=== PATIENT | male | born 1950 | race Caucasian/White ===

== ENCOUNTER 2018-02-03 17:09 | Emergency (ER) | payer MEDICARE, OTHER, SELFPAY ==
[2018-02-03 17:10] VITALS: BP 120/65; PULSE 87; RESP 16; TEMP 37.2; O2SAT 96; BMI 28.3
--- NOTE | 2018-02-03 18:33 | ED.DCSUM_ITS ---
- ER Visit Summary Date of Service: 02/03/18 Chief Complaint: Abscess left groin History of Present Illness: The patient is a 67 M with an abscess to the left groin over the past 8 days. He states for the past 3 days it has been draining. Today he had some mild body aches and was feeling nauseated. He had subjective fever but did not measure it at home. He is diabetic and states his blood sugars have been good. Physical Examination: Vital signs grossly unremarkable. Patient is sitting upright in bed no acute distress. He is nontoxic appearing. Head neck examination is unremarkable. Heart is regular rate and rhythm without murmur. Lung sounds are clear. Skin examination reveals a 4 cm firm abscess to the left groin line. There is no fluctuance at this time. There is minimal cellulitis. Test Results: [] Emergency Department Course and Treatment: Bedside ultrasound was performed. There is increased inflammation in the soft tissue without a focal fluid collection. Patient be treated with clindamycin (he has allergy to sulfa and penicillin). He will also be given Zofran for nausea. He is to return for worsening symptoms. Treatment Plan: [] Disposition: Discharge Impression: Cutaneous abscess left groin This note was generated with [employer] dictation software. It may contain incorrect words, spelling, and punctuation that were not noted in review of the chart prior to signing ED Disposition - Plan for ED Patient: Chief Complaint: Abscess Referrals: Yahir Vidal MD [Primary Care Provider] -
--- NOTE | 2018-02-03 18:33 | ED.DEP ---
ED Disposition - Plan for ED Patient: Disposition: Home or Assisted Living Chief Complaint: Abscess Instructions: ED Staph Infec Abx Tx Only Prescriptions: Ondansetron [Zofran Odt] 4 mg PO Q8H PRN PRN #10 tab PRN Reason: Nausea Clindamycin [Cleocin] 300 mg PO 4X/DAY #80 cap Referrals: Yahir Vidal MD [Primary Care Provider] - 5-7 Days
[2018-02-03] MEDS: Ondansetron ODT 4 MG Tablet PO (18:54)
[2018-02-03] MEDS: Clindamycin HCl 150 MG Capsule 300 MG PO (18:54)
[2018-02-03 18:56] VITALS: BP 150/79; PULSE 68; RESP 18; O2SAT 99
== END 2018-02-03 18:59 | disposition home or self-care (01) ==
LOC: ED 18:47
PROVIDERS: Emergency Provider Emergency Medicine; Family Provider Internal Medicine; PCP Internal Medicine
DX: L02.214 Cutaneous abscess of groin (principal); Z88.2 Allergy status to sulfonamides; E11.9 Type 2 diabetes mellitus without complications; I10 Essential (primary) hypertension; E78.00 Pure hypercholesterolemia, unspecified; I25.10 Atherosclerotic heart disease of native coronary artery without angina pectoris; I25.2 Old myocardial infarction; Z72.0 Tobacco use; Z95.810 Presence of automatic (implantable) cardiac defibrillator
CPT/HCPCS: 99283

== ENCOUNTER → 2018-03-24 11:48 | Outpatient (CLI) | payer MEDICARE, OTHER, SELFPAY ==
[2018-03-24 12:58] LABS: AST(SGOT) 14 U/L (15-37); Alanine Aminotransfer ALT/SGPT 32 U/L (16-61); Albumin, Serum 3.9 g/dL (3.2-5.0); Alkaline Phosphatase 63 U/L (45-117); Bilirubin, Direct 0.12 mg/dL (0.00-0.30); Cholesterol 151 mg/dL (200); Globulin 3.4 g/dL (2.2-4.2); High Density Lipoprotein 25 mg/dL; Protein, Total 7.3 g/dL (6.4-8.2); Triglycerides 262 mg/dL; Very Low Density Lipoprotein 52 mg/dL (5-40)
== END ==
PROVIDERS: Family Provider Internal Medicine; PCP Internal Medicine; Referring Provider Nurse Practitioner Family; Visit Provider Nurse Practitioner Family
DX: E78.00 Pure hypercholesterolemia, unspecified (principal); I25.10 Atherosclerotic heart disease of native coronary artery without angina pectoris; Z98.61 Coronary angioplasty status
CPT/HCPCS: 36415; 80061; 80076

== ENCOUNTER → 2018-11-20 09:57 | Outpatient (CLI) | payer MEDICARE, OTHER, SELFPAY ==
[2018-09-01 13:30] VITALS: BMI 28.8
[2018-11-20 11:14] LABS: AST(SGOT) 10 U/L (15-37); Alanine Aminotransfer ALT/SGPT 19 U/L (16-61); Albumin, Serum 3.8 g/dL (3.2-5.0); Alkaline Phosphatase 49 U/L (45-117); Bilirubin, Direct 0.09 mg/dL (0.00-0.30); Cholesterol 128 mg/dL (200); Globulin 3.1 g/dL (2.2-4.2); High Density Lipoprotein 28 mg/dL; Protein, Total 6.9 g/dL (6.4-8.2); Triglycerides 199 mg/dL; Very Low Density Lipoprotein 40 mg/dL (5-40)
== END ==
PROVIDERS: Family Provider Internal Medicine; PCP Internal Medicine; Referring Provider Nurse Practitioner Family; Visit Provider Nurse Practitioner Family
DX: E78.5 Hyperlipidemia, unspecified (principal)
CPT/HCPCS: 36415; 80061; 80076

== ENCOUNTER → 2019-04-21 06:43 | Outpatient (CLI) | payer MEDICARE, OTHER, SELFPAY ==
[2019-03-30 14:27] VITALS: BMI 28.2
--- NOTE | 2019-04-21 06:44 | ECHOD_ITS ---
Reason For Study: CAD Procedure This was a 2D Doppler, Color Flow transthoracic echocardiogram. Exam performed in department. Left Ventricle Severely dilated left ventricle. Moderate segmental systolic dysfunction (see wall motion). The estimated ejection fraction is 35 %. Paradoxical septal wall motion compatible with an IVCD and/or electronic ventricular pacemaker. No evidence for diastolic dysfunction. Anterio-Basal: Hypokinetic. Lateral-Basal: Hypokinetic. Posterior-Basal: Severely hypokinetic. Infero-Basal: Severely Hypokinetic. Basal inferoseptal: Severely Hypokinetic. Basal anteroseptal: Hypokinetic. Mid- Anterior : Hypokinetic. Mid-Lateral : Severely Hypokinetic. Mid-Posterior: Severely Hypokinetic. Mid-Inferior: Akinetic. Mid-inferoseptal : Severly Hypokinetic. Mid-anteroseptal : Hypokinetic. Anterior [place] : Hypokinetic. Inferior [place] Lee : Akinetic. Lateral [place] : Severely Hypokinetic. Septal [place] : Hypokinetic. Right Ventricle Normal RV size. ICD or pacer leads identified within the right ventricle. Normal systolic function. Atria The left atrium is mildly enlarged. Normal right atrium. ICD or pacer leads identified within the right atrium. No doppler evidence for ASD. Mitral Valve There is no mitral annular calcification. Normal mitral valve. Mild-Moderate (1-2+) mitral valve insufficiency. Tricuspid Valve Normal tricuspid valve. Mild tricuspid valve insufficiency. Right ventricular systolic pressure estimated to be 28 mmHg. Aortic Valve Trisinus/trileaflet aortic valve. Normal aortic valve. Pulmonic Valve The pulmonic valve is not well visualized. Trivial pulmonic valve insufficiency. Great Vessels Normal sized aortic root. Pericardium/Pleural No pericardial effusion. MMode/2D Measurements & Calculations LVIDd: 6.8 cm IVSd: 1.2 cm Ao root diam: 3.6 cm LVIDs: 5.6 cm LVPWd: 1.2 cm RVDd: 3.4 cm FS: 17.1 % LAV(MOD-bp): 71.9 ml EDV(MOD-sp4): 253.3 ml SV(MOD-sp4): 89.0 ml LAV(MOD-bp) Indexed: 33.2 ml/m2 ESV(MOD-sp4): 164.3 ml LAV(MOD-sp2): 68.2 ml EF(MOD-sp4): 35.1 % LAV(MOD-sp4): 74.2 ml LA dimension(2D): 4.2 cm LA A4 area: 22.2 cm2 RA A4 area: 19.2 cm2 Doppler Measurements & Calculations MV E max tom: 52.2 cm/sec Lat Peak E' Tom: 5.9 cm/sec Med Peak E' Tom: 4.6 cm/sec MV A max tom: 96.9 cm/sec E/E' lat: 8.9 E/E' med: 11.4 MV E/A: 0.54 Ao V2 max: 161.4 cm/sec LV V1 max: 98.2 cm/sec PA V2 max: 99.1 cm/sec Ao max P.4 mmHg LV V1 max P.9 mmHg TR max tom: 251.7 cm/sec TR max P.3 mmHg Interpretation Summary Severely dilated left ventricle. Moderate segmental systolic dysfunction (see wall motion). The estimated ejection fraction is 35 %. Paradoxical septal wall motion compatible with an IVCD and/or electronic ventricular pacemaker The left atrium is mildly enlarged. Mild-Moderate (1-2+) mitral valve insufficiency. Mild tricuspid valve insufficiency. Trivial pulmonic valve insufficiency. Right ventricular systolic pressure estimated to be 28 mmHg. No evidence for diastolic dysfunction. ICD or pacer leads identified within the right atrium ICD or pacer leads identified within the right ventricle. Ordering Physician: Pratik Yoder Referring Physician: Yahir Vidal Performed By: Madalyn Parisi RDCS
--- NOTE | 2019-04-21 13:20 | STRESSREP ---
Stress Test Report Date: 04-21-19 Procedure: Pharmacologic stress nuclear imaging study Indications: Fatigue; CAD; PCI; ischemic cardiomyopathy; ICD; abnormal ECG-left bundle branch block Consent: Per the patient Procedure: The patient underwent pharmacologic (Regadenoson) evaluation with a peak heart rate of 82 beats per minute (53 %predicted maximal heart rate) and a peak blood pressure of 130/80 mmHg. The baseline ECG demonstrated sinus rhythm; incomplete left bundle branch block pattern. The peak pharmacologic ECG demonstrated sinus rhythm with left bundle branch block pattern. There was an occasional PVC during recovery and an isolated ventricular triplet during recovery. [There was no complaint of chest discomfort during pharmacologic infusion or recovery]. The examination was discontinued secondary to completion of protocol. Impression: 1. Pharmacologic (Regadenoson) evaluation 2. Peak pharmacologic ECG with continued left IVCD pattern. 3. There was an occasional PVC during recovery and an isolated ventricular triplet during recovery. 4. Nuclear images pending Myocardial perfusion imaging study: Technique: The patient was injected with 14.0 millicuries of technetium 99m Cardiolite and subsequently rest SPECT Cardiolite nuclear imaging was obtained in the horizontal long, vertical long, and short axis views. The patient underwent pharmacologic (Regadenoson) evaluation with a peak heart rate of 82 beats per minute (53 % percent predicted maximal heart rate) and a peak blood pressure of 130/80 mmHg. The patient was injected with 44.3 millicuries of technetium 99m Cardiolite and subsequently stress SPECT Cardiolite nuclear imaging was obtained in the horizontal long, vertical long, and short axis views. A gated Cardiolite study at peak stress was obtained. Interpretation: Rest and stress SPECT Cardiolite nuclear imaging status post realignment, normalization, and attenuation correction demonstrate rest and stress SPECT Cardiolite nuclear imaging demonstrate at rest areas of diminished tracer uptake in portions of the distal anteroseptal/septal apical areas. Status post stress there is notation of improvement in these areas, however, there is notation of an area of diminished tracer uptake in portions of the mid towards distal anterior/anteroseptal segments as well as the associated anterior/septal apical segments. There are similar type findings on the resting and stress polar map images. There is diminished end systolic thickening and brightening. The gated Cardiolite study demonstrates diminished myocardial thickening and inward wall motion. The reported LVEF is 32 %. Impression: 1. Rest and stress SPECT currently nuclear imaging demonstrate myocardial perfusion changes potentially compatible with a combination of shifting soft tissue attenuation/artifact be more prominent at rest as opposed to stress but also concerning for an area of stress-induced myocardial ischemia involving portions of the mid to distal anterior/anteroseptal and associated apical segments. 2. The gated Cardiolite study reports an LVEF of 32 %. This note was generated with [employer] software. It may contain incorrect words, spelling, and punctuation that were not noted in checking the note before signing.
== END ==
PROVIDERS: Family Provider Internal Medicine; PCP Internal Medicine; Referring Provider Internal Medicine Cardiovascular Disease; Visit Provider Internal Medicine Cardiovascular Disease
DX: I25.10 Atherosclerotic heart disease of native coronary artery without angina pectoris (principal); I43 Cardiomyopathy in diseases classified elsewhere; E78.00 Pure hypercholesterolemia, unspecified; I10 Essential (primary) hypertension; Z95.5 Presence of coronary angioplasty implant and graft; R53.83 Other fatigue
CPT/HCPCS: 78452; 93017; 93306; A9500; A4216; J2785

== ENCOUNTER → 2019-05-13 11:39 | Outpatient (CLI) | payer MEDICARE, OTHER, SELFPAY ==
[2019-05-13 10:44] VITALS: BMI 28.5
--- NOTE | 2019-05-13 11:50 | RAD_ITS ---
STUDY: X-RAY CHEST REASON FOR EXAM: Male, 68 years old. Pre-op for heart catheter. Chest tightness. TECHNIQUE: PA and lateral views. COMPARISON: 09/10/2014. FINDINGS: Right subclavian approach single chamber pacing lead tip remains in the right ventricle. The lungs are clear and expanded. There is no demonstrated pleural abnormality. Normal size heart. Normal mediastinum and azra. Normal visualized pulmonary arteries. Normal visualized aortic arch and descending thoracic aorta. Mild anterior wedging of T8, T9, T10, T11 and T12 vertebral bodies are unchanged. Normal visualized ribs, clavicles, and shoulders. There is no demonstrated abnormality of the visualized soft tissue structures of the upper abdomen. RAD/Chest PA and Lateral IMPRESSION: 1. No acute cardiopulmonary pathology. 2. No interval change when compared to 09/10/2014. Electronically Signed: Vladislav Zavala MD at 10:40 EST , Service support ,
[2019-05-13 12:56] LABS: Absolute Neutrophil Count 4.7 X10^3/uL (2.0-7.7); Basophil# 0.06 X10^3/uL; Basophil% 0.7 % (0-1); Eosinophil# 0.28 X10^3/uL; Eosinophils% 3.3 % (0-5); Hemoglobin 14.1 g/dL (13.0-16.5); Lymphocyte % 26.3 % (19-41); Mean Corp Hgb Conc 33.6 g/dL (32-36); Mean Corpuscular Hgb 30.7 pg (27.0-32.0); Mean Corpuscular Volume 91.3 fL (80-94); Mean Platelet Vol. 9.6 fl (6.2-12.0); Monocyte# 0.98 X10^3/uL; Monocyte% 11.7 % (0-10); NRBC Flagged by Analyzer 0 % (0-5); Neutrophil # 4.72 X10^3/uL (2.7-7.7); Neutrophil % 56.6 % (47-70); Platelet Count 264 K/mm3 (150-450); RBC Distribution Width CV 12.8 % (11.6-14.6); RBC Distribution Width SD 42.4 fl (35.1-43.9); White Blood Count 8.4 K/mm3 (4.4-11.0)
[2019-05-13 13:06] LABS: Prothrombin Time (Protime)PT. 13.4 SECONDS (11.7-14.9)
[2019-05-13 13:07] LABS: Partial Thromboplast Time 30.1 Seconds (24.1-36.2)
[2019-05-13 13:14] LABS: Anion Gap 5 (5-15); BUN 23 mg/dL (7-18); BUN/Creat Ratio 16.2 RATIO (10-20); Calcium,Total 8.6 mg/dL (8.5-10.1); Chloride 107 mmol/L (98-107); Creatinine, Serum 1.42 mg/dL (0.70-1.30); EST Glomerular Filtration Rate 53 mL/min (>60); Est Glom Filt Rate - Afr Amer 64 mL/min (>60); Glucose 114 mg/dL (74-106); Potassium 4.4 mmol/L (3.5-5.1); Sodium Level 138 mmol/L (136-145)
== END ==
PROVIDERS: Family Provider Internal Medicine; PCP Internal Medicine; Referring Provider Internal Medicine Cardiovascular Disease; Visit Provider Internal Medicine Cardiovascular Disease
DX: R07.89 Other chest pain (principal); R94.39 Abnormal result of other cardiovascular function study; I10 Essential (primary) hypertension; I25.10 Atherosclerotic heart disease of native coronary artery without angina pectoris; Z95.5 Presence of coronary angioplasty implant and graft; Z79.899 Other long term (current) drug therapy
CPT/HCPCS: 36415; 71046; 80048; 85025; 85610; 85730

== ENCOUNTER 2019-05-22 08:45 | Day surgery (SDC) | payer MEDICARE, OTHER, SELFPAY ==
[2019-03-30 14:27] VITALS: BMI 28.2
[2019-05-13 10:44] VITALS: BMI 28.5
--- NOTE | 2019-05-13 11:22 | HP_ITS ---
HPI HPI History of Present Illness Surgical H&P: Yes Details: LAUREL DARLING, is a 68 year old white male who presents to the office today for a cardiovascular outpatient follow-up with history of coronary artery disease with multiple stents, ischemic mediated cardiomyopathy, hypertension, hyperlipidemia, status post ICD, and left bundle branch block, who is recently undergone evaluation noninvasively and has been found to have an abnormal pharmacologic stress nuclear imaging study. He notes that since his stress test he did have one day where he had centralized chest tightness. He did use nitroglycerin sublingual. He states he felt better overall. He was not sure whether this was cardiac, GI, etc. He has had no recurrent symptoms since that time. He has had no ongoing issues of classic CHF or pulmonary edema from an acute standpoint. There is been no near syncope or syncope or ICD discharge. He does note that he has been under a lot of stress. He states he has been more tired and fatigued. He did have a follow-up ECG in the office today. He was noted to have sinus rhythm with an occasional PVC as well as T wave abnormalities potentially compatible with myocardial ischemia in the anterior lateral distribution. 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 Accompanied by: Self Allergies FRANK Inhibitors Allergy (Verified 05/13/19 10:44) cough atorvastatin [From Lipitor] Allergy (Verified 05/13/19 10:44) myalgia gabapentin [From Neurontin] Allergy (Verified 05/13/19 10:44) numbness Penicillins Allergy (Verified 05/13/19 10:44) Hives Sulfa (Sulfonamide Antibiotics) Allergy (Verified 05/13/19 10:44) Hives Medications Aspirin [Aspirin, Baby] 81 mg PO DAILY@0800 09/10/14 [History Confirmed 05/13/19] losartan 25 mg tablet 25 mg PO DAILY #90 tab 12/12/18 [Rx Confirmed 05/13/19] lovastatin 20 mg tablet 20 mg PO QHS #90 tab 07/07/18 [Rx Confirmed 05/13/19] clopidogrel 75 mg tablet 75 mg PO DAILY #90 tab 08/21/18 [Rx Confirmed 05/13/19] melatonin 3 mg tablet 3 mg PO HS PRN 09/01/18 [History Confirmed 05/13/19] metformin 500 mg tablet 500 mg PO BID tab 09/01/18 [History Confirmed 05/13/19] nitroglycerin 0.4 mg sublingual tablet 0.4 mg SUBLINGUAL Q5M PRN #25 tab 09/01/18 [Rx Confirmed 05/13/19] amlodipine 10 mg tablet 10 mg PO DAILY #90 tab 09/22/18 [Rx Confirmed 05/13/19] carvedilol 6.25 mg tablet 6.25 mg PO BID #180 tab 10/15/18 [Rx Confirmed 05/13/19] isosorbide mononitrate ER 30 mg tablet,extended release 24 hr 30 mg PO QDAY 90 Days #90 tab 10/15/18 [Rx Confirmed 05/13/19] spironolactone 25 mg tablet 25 mg PO DAILY #90 tab 11/04/18 [Rx Confirmed 05/13/19] [facility] Medical History Type 2 diabetes mellitus (Chronic) Presence of stent in coronary artery (Chronic ~06/22/11) Old myocardial infarction (Acute) Pure hypercholesterolemia (Chronic) Essential (primary) hypertension (Chronic) Other intermediate accountant (current) drug therapy (Chronic) Automatic implantable cardiac defibrillator in situ (Chronic) Cardiomyopathy in other diseases classified elsewhere (Chronic) Abnormal echocardiogram (Inactive) Abnormal myocardial perfusion study (Inactive) Blurred vision (Chronic) Chest tightness (Inactive) Ventricular tachycardia (Chronic) Atherosclerotic heart disease of [place] coronary artery without angina pectoris (Chronic) Acute VT, subendocardial, subsequent episode of care (Inactive) Surgical History History of herniorrhaphy (Chronic) Presence of coronary angioplasty implant and graft (Chronic ~06/22/11) Family History Father Myocardial infarction, Onset Age: 70 CAD (coronary artery disease) Hx of CABG Mother CAD (coronary artery disease) Diabetes Pacemaker Brother Myocardial infarction age of onset 40s Sister Myocardial infarction, Onset Age: 62 Rheumatic fever Son Hypertension Diabetes Daughter Diabetes Social History (Updated 05/13/19 @ 11:22 by Pratik Yoder MD) Smoking Status: Heavy Smoker (>10/day) second hand exposure: No alcohol intake: current alcohol intake frequency: a few times a week substance use type: does not use caffeine: Yes Type: coffee Number of servings: 2 what type of physical activity do you participate in: none ROS Const Const: Positive for fatigue; negative for weakness, frequent falls, excessive sweating, weight gain or weight loss Eyes Eyes: Negative for transient loss of vision, blurry vision or change in vision ENT ENT: Positive for dizziness (coughing jags) and balance problems (slight) Cardio Chest Pain: Yes Character: dull Onset: exercise Location: mid sternal Duration: minutes (10-15) Relieving: other (nitro) Palpitations: No Edema: None Muscle aches with walking: None Resp Respiratory: Positive for SOB with activity (slight) and Cough (dry); negative for SOB at rest GI GI: Negative vomiting or vomiting blood/hematemesis : Negative for hematuria Musc Musc: Positive for balance problems (slight); negative for muscle aches/ myalgia, muscle weakness or joint pain Skin Skin: Negative non-healing lesions or rash Neuro Neuro: Positive for dizziness (coughing jags) and lightheadedness (coughing jags); negative for orthostatic symptoms, frequent falls, weakness or blurry vision Preet Hematologic/Lymphatic: Negative for easy bleeding Endo Endo: Positive for fatigue; negative for excessive sweating Psych Psych: Negative for anxiety or depression Allergy Allergy/Immunology: Negative for hives, Negative for rash Cardiology Exam Const Appearance: cooperative, healthy appearing, comfortable, no acute distress, well developed and well groomed Nutritional Appearance: well nourished and overweight Orientation: alert, awake and oriented x3 Head Head: normal to inspection, normocephalic and atraumatic Ears: hearing grossly normal bilaterally Nose: external nose normal Face and Sinus: face symmetric Mouth: oral mucosae normal Eyes Eyelids: eyelids normal Conjunctivae: conjunctivae normal Pupils: PERRL EOM: EOM intact bilaterally Neck Neck: normal visual inspection, full ROM and no JVD Carotids: normal carotid upstroke Chest Chest inspection: normal inspection of the chest, symmetric chest movement and normal respiratory effort; negative cough Auscultation: Bilateral: Clear to Auscultation Cardio Rate: regular rate Rhythm: regular rhythm Heart sounds: S1 normal and S2 normal; negative rub, gallop or murmur GI GI: normal to inspection, soft and bowel sounds present Neuro General: alert, awake, oriented x3 and moves all extremities Skin Skin: no rashes or lesions noted Extremities Pulses: Normal: Right Posterior Tibial Pulse, Left Posterior Tibial Pulse, Right Radial Pulse, Left Radial Pulse Lower Extremity Edema: None: Bilateral Psych Psychological: normal affect Assessment & Plan 1. Atherosclerosis of [place] coronary artery of [place] heart without angina pectoris I25.10 Plan At the present time he will continue his risk factor modification and medical therapy. He will continue his ongoing cardiovascular evaluation with plans for upcoming diagnostic cardiac catheterization. The procedure and risks were discussed with him. He was agreeable to this approach. 2. Presence of stent in coronary artery Z95.5 PTCA/YUDY to LCX and PTCA/YUDY to mid and distal RCA 06/22/11 Plan Again based on his ongoing cardiovascular history, his concerns, studies, he will continue medical management and further evaluation as noted above. 3. Cardiomyopathy in other diseases classified elsewhere I43 Plan His left ventricular wall motion and systolic function was recently evaluated noninvasively. He continues to be diminished. He will continue medical therapy and follow-up. 4. Automatic implantable cardiac defibrillator in situ Z95.810 Plan He will continue with outpatient ICD interrogation. 5. Pure hypercholesterolemia E78.00 Plan He will continue risk factor evaluation and care. 6. Essential (primary) hypertension I10 Plan He will continue medical therapy. 7. Abnormal myocardial perfusion study R94.39 Plan Again he had an abnormal pharmacologic perfusion imaging study. Based upon the results he will undergo further evaluation with diagnostic cardiac catheterization as previously described. Plan Detail Other Orders Orders: 12 Lead EKG performed by [facility] Today R07.89 12 Lead EKG performed by [facility] Today R07.89 Basic Metabolic Profile (BMP) Today R07.89 Partial Thromboplast Time Today R07.89 Prothrombin Time w/INR Today R07.89 CBC W/Diff, Automated Today R07.89 Chest PA and Lateral Today R07.89 Additional Comments Thank you for allowing me to participate in the care of your patient. Please don't hesitate to call if any issues arise. This note was generated using a voice recognition system and there may be incorrect words, spelling or punctuation that were not noted when reviewing the office note prior to saving. Follow Up 6 Months (PFM) Coding Level of Care Code Off vis,est,level 4 Diagnoses Atherosclerosis of [place] coronary artery of [place] heart without angina pectoris I25.10 ??[place] vs. transplanted heart: [place] heart Presence of stent in coronary artery Z95.5 Cardiomyopathy in other diseases classified elsewhere I43 Automatic implantable cardiac defibrillator in situ Z95.810 Pure hypercholesterolemia E78.00 Essential (primary) hypertension I10 Abnormal myocardial perfusion study R94.39 Coding Level of Care Code Off vis,est,level 4 Diagnoses Atherosclerosis of [place] coronary artery of [place] heart without angina pectoris I25.10 ??[place] vs. transplanted heart: [place] heart Presence of stent in coronary artery Z95.5 Cardiomyopathy in other diseases classified elsewhere I43 Automatic implantable cardiac defibrillator in situ Z95.810 Pure hypercholesterolemia E78.00 Essential (primary) hypertension I10 Abnormal myocardial perfusion study R94.39 Supplemental Info Supplemental Information Heart catheterization in November 2012 demonstrated an ejection fraction of 35-45% moderate global left ventricular hypokinesis. Left main with no obstructive lesions. LAD had luminal irregularities with mid LAD and luminal irregularities in the proximal second diagonal and luminal irregularities distal left anterior. Circumflex had pre-existing stent that was patent with 40% discrete stenosis of the proximal left circumflex. RCA had patent distal stent. Echocardiogram in 2012 demonstrated an ejection fraction of 30%, moderately dilated left ventricle, paradoxical septal wall motion compatible with an IVCD, trivial mitral valve insufficiency, trivial tricuspid valve insufficiency, trivial pulmonic valve insufficiency, and diastolic dysfunction. Transthoracic echocardiogram: 04-21-19 Interpretation Summary Severely dilated left ventricle. Moderate segmental systolic dysfunction (see wall motion). The estimated ejection fraction is 35 %. Paradoxical septal wall motion compatible with an IVCD and/or electronic ventricular pacemaker The left atrium is mildly enlarged. Mild-Moderate (1-2+) mitral valve insufficiency. Mild tricuspid valve insufficiency. Trivial pulmonic valve insufficiency. Right ventricular systolic pressure estimated to be 28 mmHg. No evidence for diastolic dysfunction. ICD or pacer leads identified within the right atrium ICD or pacer leads identified within the right ventricle. Stress Test Report Date: 04-21-19 Procedure: Pharmacologic stress nuclear imaging study Indications: Fatigue; CAD; PCI; ischemic cardiomyopathy; ICD; abnormal ECG-left bundle branch block Consent: Per the patient Procedure: The patient underwent pharmacologic (Regadenoson) evaluation with a peak heart rate of 82 beats per minute (53 %predicted maximal heart rate) and a peak blood pressure of 130/80 mmHg. The baseline ECG demonstrated sinus rhythm; incomplete left bundle branch block pattern. The peak pharmacologic ECG demonstrated sinus rhythm with left bundle branch block pattern. There was an occasional PVC during recovery and an isolated ventricular triplet during recovery. [There was no complaint of chest discomfort during pharmacologic infusion or recovery]. The examination was discontinued secondary to completion of protocol. Impression: 1. Pharmacologic (Regadenoson) evaluation 2. Peak pharmacologic ECG with continued left IVCD pattern. 3. There was an occasional PVC during recovery and an isolated ventricular triplet during recovery. 4. Nuclear images pending Myocardial perfusion imaging study: Technique: The patient was injected with 14.0 millicuries of technetium 99m Cardiolite and subsequently rest SPECT Cardiolite nuclear imaging was obtained in the horizontal long, vertical long, and short axis views. The patient underwent pharmacologic (Regadenoson) evaluation with a peak heart rate of 82 beats per minute (53 % percent predicted maximal heart rate) and a peak blood pressure of 130/80 mmHg. The patient was injected with 44.3 millicuries of technetium 99m Cardiolite and subsequently stress SPECT Cardiolite nuclear imaging was obtained in the horizontal long, vertical long, and short axis views. A gated Cardiolite study at peak stress was obtained. Interpretation: Rest and stress SPECT Cardiolite nuclear imaging status post realignment, normalization, and attenuation correction demonstrate rest and stress SPECT Cardiolite nuclear imaging demonstrate at rest areas of diminished tracer uptake in portions of the distal anteroseptal/septal apical areas. Status post stress there is notation of improvement in these areas, however, there is notation of an area of diminished tracer uptake in portions of the mid towards distal anterior/anteroseptal segments as well as the associated anterior/septal apical segments. There are similar type findings on the resting and stress polar map images. There is diminished end systolic thickening and brightening. The gated Cardiolite study demonstrates diminished myocardial thickening and inward wall motion. The reported LVEF is 32 %. Impression: 1. Rest and stress SPECT currently nuclear imaging demonstrate myocardial perfusion changes potentially compatible with a combination of shifting soft tissue attenuation/artifact be more prominent at rest as opposed to stress but also concerning for an area of stress-induced myocardial ischemia involving portions of the mid to distal anterior/anteroseptal and associated apical segments. 2. The gated Cardiolite study reports an LVEF of 32 %. 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 Labs LDL Cholesterol 60 mg/dL (0-130) 11/20/18 HDL Cholesterol 28 mg/dL (40-) L 11/20/18 Triglycerides 199 mg/dL (-199) 11/20/18 VLDL Cholesterol 40 mg/dL (5-40) 11/20/18 Diagnostics Echocardiogram 04/21/19 Stress Test 04/21/19 Pacemaker Check 01/23/19 Chest X-Ray 09/10/14 05/13/19 1122 <Electronically signed by Pratik vasquez MD> Date _ Pratik Yoder MD I have re-examined the patient. There are no clinical changes since date of exam.
[2019-05-20 13:57] VITALS: BMI 28.5
[2019-05-22] VITALS (16 sets, daily range): BP systolic 106–142; BP diastolic 54–104; PULSE 60–74; RESP 10–22; TEMP 36.6–36.9; O2SAT 96–99; BMI 27.9; BMI 28.5
--- NOTE | 2019-05-22 11:22 | CL.I_ITS ---
Patient Name: LAUREL DARLING Study Date: 05/22/2019 Performing: Usman Ga MD Ht: 72.04 inches 183 cm : 1950 Wt: 209.44 lbs 95 kg Age: 68 Gender: male BSA: 2.17 PROCEDURE(S) PERFORMED LO76-BDB W OR WO PTCA, SINGLE CORONARY ARTERY CLINICAL PROFILE AND CO-MORBIDITIES Heart Failure: NYHA Class: 1, Newly Diagnosed: No, Heart Failure Type: Systolic Stress/Imaging Date: 05/13/2019 Stress Test with SPECT MPI: Positive Low Risk Angina Classification Anginal Classification w/in 2 Weeks: CCS II CAD Presentations: Unstable angina. Comorbidities/Risk Factors: Hypertension Dyslipidemia Prior CHF Prior PCI Diabetes Mellitus: Diabetes Therapy: Oral CONCLUSIONS Successful PTCA/YUDY to proximal/mid PL branch of RCA with a 3.0 x 38 Promus Synergy, post dilated pro ximally with a 3.5 x 8 NC Balloon; 75%-->0%, no dissection. RECOMMENDATIONS Highly recommend quitting all tobacco products Follow up with primary product safety expert Risk factor modification ASA Indefinitley Plavix for at least 12 months Routine post interventional care Refer for Outpatient Cardiac Rehab Manual sheath removal per protocol Follow up with Dr. Yoder Successful Mynx Control of RFA. Medical management of LAD and LCX for now. Pt had identical CP during stent deployment. DESCRIPTION OF PROCEDURE The patient arrived to the procedure lab. The risks and benefits of the procedure as well as a full d escription of our services here and current unavailability of surgical backup were fully explained to the patient and/or their significant other prior to the catheterization. The Timeout was completed, verifying the correct patient and procedure. The patient's procedural site was prepped and draped in the usual fashion. Local anesthetic was given subcutaneously to right groin region with Lidocaine 2% Using a modified Seldinger technique,arterial access was obtained via the right femoral artery, a 4Fr sheath was inserted Left Coronary Artery selective angiography was performed in multiple views using a 4 Fr. JL5 catheter. Right Coronary Artery selective angiography was then performed in multiple vie ws using a 4 Fr. 3DRC catheter. Left Ventriculography was performed in MARCIAL projection using a 4 Fr. P igtail catheter. LV to AO pullback pressures were then recorded.The images were reviewed and options discussed. A decision was then made to proceed with an Intervention, IVUS or other adjunc t procedure. Arterial sheath was exchanged for a 6 Fr Sheath. AL 1 Guide catheter was inserted and engaged int o the RCA. BMW Guide wire was advanced to the RCA. 2x12 Emerge Balloon catheter was inserted. Balloon catheter was advanced across lesion in the right coronary, distal. RPL PTCA balloon inflated at 10 a tms for 10 secs. PTCA balloon inflated at 10 atms for 6 secs. PTCA balloon inflated at 12 atms for 10 secs. 3x38 Synergy Drug Eluting stent was inserted. Drug Eluting stent was advanced across the lesio n in the right coronary, distal. RPL 3.5x8 NC Emerge Balloon catheter was inserted. Angiogram perform ed post stent deployment. Angiogram performed post balloon dilatation. Contrast was injected through the sheath and the Right Iliac and Femoral artery were assessed for possible closure device. The art erial sheath was pulled and a Mynx closure device was deployed for hemostasis INTERVENTION INFORMATION LESION SITE: RPL (1st) Lesion Complexity: High/C, lesion at bifurcation: No, thrombus present: No, lesion length: 38 mm, cul prit lesion: Yes Pre Stenosis: 75 % Pre intervention VERA flow: 3 PROCEDURE: Drug Eluting Stent with pre and post dilatation Post Stenosis: 0 % Post intervention VERA flow: 3 Lesion Devices: Sellers .014 BMW [place] Straight 190cm Medtronic 6 Fr AL1.0 100cm Guide Catheter Demertio Sci EMERGE MR 2.00x12 BALLOON Demetrio Sci Synergy MR YUDY 3.00x38 Demetrio Sci NC EMERGE MR 3.50x08 BALLOON COMPLICATIONS No Complications PROCEDURE MEDICATIONS Versed 1 mg IV Versed 1 mg IV Oxygen: 2 L/min via nasal cannula Heparin 6000 unit(s) IV 05/22/2019 10:47:41 Nitro 200 mcg IC 05/22/2019 10:54:38 Nitro 200 mcg IC 05/22/2019 10:54:38 SUMMARY OF HEMODYNAMIC DATA Time AIR REST ECG 09:16:51 AO 101/62 (77) SA 10:26:10 LV 97/-2, 6 10:37:38 LV 90/-1, 4 10:37:45 LV 109/2, 11 10:38:38 LVp 110/-2, 15 10:38:43 AOp 107/52 (72) 10:38:48 Signed By Usman Ga MD On 05/22/2019 11:21:32 AM Usman Ga MD
[2019-05-22 11:31] LABS: ACT Activated Clotting Time 191 sec (74-137)
--- NOTE | 2019-05-22 11:46 | EKG12_ITS ---
Test Reason : RHYTHM CHANGE Blood Pressure : / mmHG Vent. Rate : 068 BPM Atrial Rate : 068 BPM P-R Int : 196 ms QRS Dur : 176 ms QT Int : 478 ms P-R-T Axes : 030 -25 116 degrees QTc Int : 508 ms Normal sinus rhythm Left bundle branch block Abnormal ECG When compared with ECG of 22-MAY-2019 11:56, MANUAL COMPARISON REQUIRED, DATA IS UNCONFIRMED Confirmed by ZOILA RATLIFF, JERARDO ([id number]), metropolitan editor SANDRA MADDOX ([id number]) on 05/27/2019 11:49:27 AM Referred By: Pratik Yoder Confirmed By:JERARDO CUMMINGS MD
[2019-05-22] MEDS: 0.9% Normal Saline 1,000 ML 150 ML IV (12:33)
--- NOTE | 2019-05-22 13:17 | CRPHASE1 ---
Patient Communication Former Patient:: Phase II PHII Cardiac Rehab Discussed with Patient:: Yes Guide to Cardiac Rehab Given to Patient:: Yes Cardiac Rehab Facility Choice List Given to Patient:: Yes - Pt chooses [facility] Choice Program [facility] CR PHII:: Communication Given to CR, Refer to [facility] Academic Registrar:: Usman Ga Phase II Cardiac Rehab:: Yes Sessions:: 36 sessions - 3 days/wk, 12 weeks Risk Factors/Lifestyle Smoking Status: Current every day smoker Hx Hypertension: Yes Hx Diabetes Mellitus Type 2: Yes Hx Dyslipidemia: Yes Height: 1.83 m Weight:: 95.254 kg BMI: 28.5 Family History: Family History (Last Reviewed 05/13/19 @ 10:46 by Leyla Rodrigez) Father Myocardial infarction, Onset Age: 70 CAD (coronary artery disease) Hx of CABG Mother CAD (coronary artery disease) Diabetes Pacemaker Brother Myocardial infarction Sister Myocardial infarction, Onset Age: 62 Rheumatic fever Son Hypertension Diabetes Daughter Diabetes Family History: Heart Disease Phase I Education Given On:: [place], Nutrition, Antiplatelet medication, CHF, Smoking cessation, Diabetes - Type I, Diabetes - Type II Issues Affecting Care:: None Knowledge of Condition:: Yes Hospital Course Cardiac Cath Date:: 05/22/19 Medical/Surgical History Diabetes Type II:: Yes Hypertension:: Yes Dyslipidemia:: Yes PTCA:: Yes Discharge/Home/Social Eval Discharge Disposition: Home Cardiac Rehabilitation Info Cardiac Rehabilitation Program Information: Cardiac Rehabilitation is important for patients like you who are recovering from a heart problem. Cardiac rehabilitation programs are recognized as integral to the continued care of the patient with coronary heart disease. The cardiac rehabilitation program is designed to optimize a patient's physical, psychological, and social functioning. Health managed care manager work in cardiac rehabilitation programs and assist you with getting the treatments you need to get stronger and healthier - like exercise, healthy eating habits, and medications. Cardiac rehabilitation has been show to help people with heart problems live longer and have better life enjoyment than people who do not go to cardiac rehabilitation. Please contact the Cardiac Rehabilitation Program at [facility] at in two weeks if you have not heard from them.
--- NOTE | 2019-05-22 13:23 | CRPH1.INST_ITS ---
General Education CAD and cardiac anatomy and function:: Patient communicates acknowledgment Explanation of diagnoses and procedures:: Patient communicates acknowledgment Sign/Symptoms of NE:: Patient communicates acknowledgment Antiplatelet therapy: Patient communicates acknowledgment Proper use of NTG-SL: Not instructed Emergency procedures and activation of EMS: Patient communicates acknowledgment Compliance of all prescribed medications: Patient communicates acknowledgment Smoking Patient Nicotine/Smoking Risk Factors Are:: Cigarettes Recommendations Include:: Smoking cessation strategies/Smoking packet, Second- hand smoke recommendation, Participation in a smoking cessation program, Previous smoker; encourage continued cessation Nicotine/Smoking Response Code:: Patient communicates acknowledgment Dyslipidemia Dyslipidemia Response Code:: Patient communicates acknowledgment Overweight/Obesity Patient Overweight/Obesity Risk Factors Are:: BMI Normal [24-29 & > 65 years old] Hypertension Recommendations Include:: Maintain BP <130/85, BP <130/80 if diabetic, DASH dietary guidelines, Decrease/maintain normal body weight, Moderation of ETOH Hypertension:: Patient communicates acknowledgment Heart Disease Patient Heart Disease Risk Factors Are:: Family history of heart disease < 65 years old Recommendations Include:: Educated family members of their risk, Educated family members of importance of prevention of heart disease Heart Disease Response Code:: Patient communicates acknowledgment Diabetes Patient Diabetes Risk Factors Are:: Elevated blood sugars Recommendations Include:: Maintain fasting blood sugars 70-110 md/dL, Maintain HgbA1c of 6% or less, Monitor blood sugar as prescribed, Diabetic dietary guidelines, Decrease/maintain body weight Diabetes:: Patient communicates acknowledgment Metabolic Syndrome Metabolic Syndrome Response Code:: Patient communicates acknowledgment Sedentary Sedentary Response Code:: Patient communicates acknowledgment Stress Stress Response Code:: Patient communicates acknowledgment
[2019-05-22 13:26] LABS: Bedside Glucose 162 mg/dL (70-110)
[2019-05-22] MEDS: Tobram/Dexam 2.5ML OPTH.BTL 1 DRP LEFT EYE ×3 (15:53→22:19)
[2019-05-22 19:26] LABS: Bedside Glucose 106 mg/dL (70-110)
--- NOTE | 2019-05-22 20:38 | CL.D_ITS ---
Patient Name: LAUREL DARLING Study Date: 05/22/2019 Performing: Pratik Yoder MD Ht: 72 inches 183 cm : 1950 Wt: 209.7 lbs 95 kg Age: 68 Gender: male BSA: 2.17 PROCEDURE(S) PERFORMED AP90-DQD/COR/LV RB49-LHA W OR WO PTCA, SINGLE CORONARY ARTERY CLINICAL PROFILE AND INDICATIONS Indications: Suspected CAD, Cardiomyopathy Heart Failure: NYHA Class: 1, Newly Diagnosed: No, Heart Failure Type: Systolic, NYHA Class: 2, N ewly Diagnosed: No, Heart Failure Type: Systolic Stress/Imaging Date: 05/13/2019Stress Test with SPECT MPI: Positive Low Risk Angina Classification Anginal Classification w/in 2 Weeks: CCS II CAD Presentations: Unstable angina. Stable angina. Comorbidities/Risk Factors: Hypertension Dyslipidemia Prior CHF Prior PCI Diabetes Mellitus: Diabetes Therapy: Oral CONCLUSIONS Normal Left Ventricular End Diastolic Pressure Segmented LV systolic dysfunction- Moderate LVEF: by LV gram 30 % [place] Multivessel CAD RECOMMENDATIONS Risk factor modification Medical therapy Referred for immediate PCI DESCRIPTION OF PROCEDURE The patient arrived to the procedure lab. The risks and benefits of the procedure as well as a full d escription of our services here and current unavailability of surgical backup were fully explained to the patient and/or their significant other prior to the catheterization. The Timeout was completed, verifying the correct patient and procedure. The patient's procedural site was prepped and draped in the usual fashion. Local anesthetic was given subcutaneously to right groin region with Lidocaine 2%. Using a modified Seldinger technique, arterial access was obtained via the right femoral artery, a 4 Fr sheath was inserted Left Coronary Artery selective angiography was performed in multiple views us ing a 4 Fr. JL5 catheter. Right Coronary Artery selective angiography was then performed in multiple views using a 4 Fr. 3DRC catheter. Left Ventriculography was performed in MARCIAL projection using a 4 Fr . Pigtail catheter. LV to AO pullback pressures were then recorded.Contrast was injected through the sheath and the Right Iliac and Femoral artery were assessed for possible closure device.T he arterial sheath was pulled and a Mynx closure device was deployed for hemostasis CORONARY ANGIOGRAPHY DOMINANCE: Right Dominant LEFT HEART ASSESSMENT Left Ventricular Ejection Fraction: by LV Gram 30 % Anterior Hypokinesis. Inferior Basal Hypokinesis. Inferior Mid Hypokinesis. Apical Hypokinesis Normal Left Ventricular End Diastolic Pressure LVEDP: 6 mmHg LEFT MAIN: Mild luminal irregularities LEFT ANTERIOR DESCENDING ARTERY: PROX LAD: Mild luminal irregularities, eccentric: 25 % Stenosis CIRCUMFLEX ARTERY: PROX CIRC: Previously placed stent is patent MID CIRC: small vessel: diffuse: 25 % Stenosis RIGHT CORONARY ARTERY: diffuse: eccentric: 25 % Stenosis MID RCA: Previously placed stent is patent DISTAL RCA: Previously placed stent is patent RT PDA: Proximal - 25 % Stenosis RIGHT AV SEGMENT: eccentric: 75 % Stenosis, diffuse: 25 % Stenosis AORTIC ROOT: Angiographically normal COMPLICATIONS No Complications PROCEDURE MEDICATIONS Versed 1 mg IV Versed 1 mg IV Oxygen: 2 L/min via nasal cannula Heparin 6000 unit(s) IV 05/22/2019 10:47:41 Nitro 200 mcg IC 05/22/2019 10:54:38 Nitro 200 mcg IC 05/22/2019 10:54:38 SUMMARY OF HEMODYNAMIC DATA Time AIR REST ECG 09:16:51 AO 101/62 (77) SA 10:26:10 LV 97/-2, 6 10:37:38 LV 90/-1, 4 10:37:45 LV 109/2, 11 10:38:38 LVp 110/-2, 15 10:38:43 AOp 107/52 (72) 10:38:48 Signed By Pratik Yoder MD On 05/22/2019 20:38:14 Pratik Yoder MD
[2019-05-22] MEDS: Carvedilol 6.25 MG Tablet PO (22:17)
[2019-05-22] MEDS: Hydrocortisone 2.5% Crm 1 APPLIC TOPICAL (22:17)
[2019-05-22 22:41] LABS: Bedside Glucose 133 mg/dL (70-110)
[2019-05-23] VITALS (12 sets, daily range): BP systolic 110–154; BP diastolic 57–82; PULSE 63–80; RESP 18–23; TEMP 36.6–36.9; O2SAT 94–99
[2019-05-23 02:21] LABS: Bedside Glucose 142 mg/dL (70-110)
[2019-05-23] MEDS: 0.9% Saline Lock 10 ML Syringe IV (05:26)
[2019-05-23] MEDS: Tobram/Dexam 2.5ML OPTH.BTL 1 DRP LEFT EYE (05:26)
[2019-05-23 07:01] LABS: Hematocrit 35.3 % (40-54); Hemoglobin 12.1 g/dL (13.0-16.5); Mean Corp Hgb Conc 34.3 g/dL (32-36); Mean Corpuscular Volume 90.5 fL (80-94); Mean Platelet Vol. 9.6 fl (6.2-12.0); Platelet Count 192 K/mm3 (150-450); RBC Distribution Width SD 42.5 fl (35.1-43.9)
[2019-05-23 07:44] LABS: ALB/GLOB Ratio 1.1 RATIO (0.9-2.4); AST(SGOT) 6 U/L (15-37); Alanine Aminotransfer ALT/SGPT 17 U/L (16-61); Albumin, Serum 3.5 g/dL (3.2-5.0); Alkaline Phosphatase 65 U/L (45-117); Anion Gap 4 (5-15); BUN 24 mg/dL (7-18); BUN/Creat Ratio 16.9 RATIO (10-20); Calcium,Total 7.8 mg/dL (8.5-10.1); Chloride 108 mmol/L (98-107); Creatinine, Serum 1.42 mg/dL (0.70-1.30); EST Glomerular Filtration Rate 53 mL/min (>60); Est Glom Filt Rate - Afr Amer 64 mL/min (>60); Estimated Creatinine Clearance 55.41 ml/min; Globulin 3.2 g/dL (2.2-4.2); Glucose 157 mg/dL (74-106); Potassium 4.2 mmol/L (3.5-5.1); Protein, Total 6.7 g/dL (6.4-8.2); Sodium Level 135 mmol/L (136-145)
[2019-05-23 08:26] LABS: Bedside Glucose 137 mg/dL (70-110)
[2019-05-23] MEDS: Clopidogrel Bisulfate 75 MG Tablet PO (08:27)
[2019-05-23] MEDS: Carvedilol 6.25 MG Tablet PO (08:27)
[2019-05-23] MEDS: Isosorbide Mononitrate 30 MG Tablet PO (08:27)
[2019-05-23] MEDS: Aspirin 81 MG TAB.CHEW PO (08:27)
[2019-05-23] MEDS: Losartan Potassium 25 MG Tablet PO (08:29)
[2019-05-23] MEDS: Spironolactone 25 MG Tablet PO (08:29)
[2019-05-23] MEDS: amLODIPine 10 MG Tablet PO (08:29)
[2019-05-23] MEDS: Hydrocortisone 2.5% Crm 1 APPLIC TOPICAL (08:31)
[2019-05-23] MEDS: Acetaminophen 325 MG Tablet 650 MG PO (08:33)
--- NOTE | 2019-05-23 10:00 | EKG12_ITS ---
Test Reason : POST PCI Blood Pressure : / mmHG Vent. Rate : 061 BPM Atrial Rate : 061 BPM P-R Int : 192 ms QRS Dur : 106 ms QT Int : 434 ms P-R-T Axes : 010 004 150 degrees QTc Int : 436 ms Normal sinus rhythm ST & T wave abnormality, consider anterolateral ischemia Abnormal ECG When compared with ECG of 10-SEP-2014 17:39, Left bundle branch block is no longer Present Confirmed by ZOILA RATLIFF, JERARDO ([id number]), map editor SANDRA MADDOX ([id number]) on 05/27/2019 11:50:02 AM Referred By: Pratik Yoder Confirmed By:JERARDO CUMMINGS MD
--- NOTE | 2019-05-23 10:13 | DCINST_ITS ---
- Discharge Diagnoses Current Active Problems: CAD status post RCA/AV segment PTCA/YUDY Reason(s) for Visit for Discharge Instructions: Chest pain. Abnormal stress nuclear imaging study. CAD status post PCI. Cardiomyopathy. ICD You will use the following diet at home:: Calorie/Carbohydrate Controlled (specify 1200, 1400, etc) - 1800, Cardiac Your food should be the consistency of: Regular Discharge Activity: May Not Drive - May not drive x48 hours, May Shower - May shower today, May Take a Tub Bath - May not take a tub bath for 7 days May resume sexual activity in: 2 weeks Weight Bearing Status: - - Avoid heavy exertional activity x1 week Call your doctor if your incision/area has: Continuous Slow Oozing, Sudden Increased Bleeding, Increased Pain/ Swelling, Increased Redness, Foul Smelling Discharge, Swelling at the incision site Call your doctor if you observe: Shortness of breath, Dizziness, Fainting spells, Swelling in the ankles, Chest pain Change Dressing in (Days):: 1 Remove Dressing in (days):: 1 Cleanse incision/area with: Soap & Water Additional Instructions: Hold metformin until 05/25/19 AM and then resume. Laboratory studies BMP: On 05-25-19 (to be arranged by the outpatient office) Allergies/Adverse Reactions: Allergies FRANK Inhibitors Allergy (Verified 05/13/19 10:44) cough atorvastatin [From Lipitor] Allergy (Verified 05/13/19 10:44) myalgia gabapentin [From Neurontin] Allergy (Verified 05/13/19 10:44) numbness Penicillins Allergy (Verified 05/13/19 10:44) Hives Sulfa (Sulfonamide Antibiotics) Allergy (Verified 05/13/19 10:44) Hives Medications to take at Discharge Aspirin [Aspirin, Baby] 81 mg PO DAILY@0800 09/10/14 losartan 25 mg tablet 25 mg PO DAILY #90 tab 05/21/18 lovastatin 20 mg tablet 20 mg PO QHS #90 tab 07/07/18 clopidogrel 75 mg tablet 75 mg PO DAILY #90 tab 08/21/18 melatonin 3 mg tablet 3 mg PO HS PRN 09/01/18 metformin 500 mg tablet 500 mg PO BID tab 09/01/18 nitroglycerin 0.4 mg sublingual tablet 0.4 mg SUBLINGUAL Q5M PRN #25 tab 09/01/18 amlodipine 10 mg tablet 10 mg PO DAILY #90 tab 09/22/18 carvedilol 6.25 mg tablet 6.25 mg PO BID #180 tab 10/15/18 isosorbide mononitrate ER 30 mg tablet,extended release 24 hr 30 mg PO QDAY 90 Days #90 tab 10/15/18 spironolactone 25 mg tablet 25 mg PO DAILY #90 tab 11/04/18 Hydrocortisone 2.5% Crm [Hytone] 1 applic TOPICAL 4X/DAY tube 05/23/19 Lovastatin [Mevacor] 20 mg PO QHS tab 05/23/19 Nitroglycerin (INPATIENT USE) [Nitrostat] 0.4 mg SUBLINGUAL Q5M PRN tab.subl 05/23/19 Tobram/Dexam [Tobradex] 1 drop LEFT EYE Q6 opth.btl 05/23/19 Primary Care Physician: Yahir Vidal MD [Primary Care Provider] - Test Results: Test results from this visit will be discussed in further detail at your follow- up appointment, if applicable. Please Follow Up With: Pratik Yoder MD When: To be arranged by the [facility]
--- NOTE | 2019-05-23 10:17 | DS.PCM_ITS ---
Discharge Date and Diagnosis Date of Admission: 05/22/19 Date of Discharge: 05/23/19 - Primary Discharge Diagnosis CAD status post RCA/AV segment PTCA/YUDY - Secondary Discharge Diagnosis Chronic Problems (Last Updated 05/22/19 @ 11:27 by Leyla Rodrigez) Type 2 diabetes mellitus (Chronic) Presence of stent in coronary artery (Chronic ~05/22/19) PTCA/YUDY to LCX and PTCA/YUDY to mid and distal RCA 06/22/11; Successful PTCA/YUDY to proximal/mid PL branch of RCA with a 3.0 x 38 Promus Synergy, post dilated proximally with a 3.5 x 8 NC Balloon; 75%-->0%, no dissection. 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) Automatic implantable cardiac defibrillator in situ (Chronic) Cardiomyopathy in other diseases classified elsewhere (Chronic) Blurred vision (Chronic) Ventricular tachycardia (Chronic) Atherosclerotic heart disease of [place] coronary artery without angina pectoris (Chronic) Hospital Course and Treatment Procedures: Cardiac catheterization, - - Cardiac intervention: RCA AV segment PCI/YUDY Summary of Care Provided: The patient is a 68 year old with a past medical history of underlying CAD, previous PCI, cardiomyopathy, ICD, who presents for evaluation of chest pain and an abnormal stress nuclear imaging study. The patient underwent diagnostic cardiac catheterization. He subsequently underwent PCI/YUDY of the right AV segment. He was monitored in the ICU overnight and he appeared to remain symptomatically and hemodynamically stable. On this day it was felt the patient was stable for discharge home for continued outpatient cardiovascular follow-up. [] Subjective: The patient is awake and alert and appears to be resting comfortably at this time. - Physical Exam Vitals/I&O's: Vital Signs Temp Pulse Resp BP Pulse Ox 98.4 F 80 23 H 154/70 H 99 05/23/19 07:00 05/23/19 10:00 05/23/19 10:00 05/23/19 10:00 05/23/19 10:00 Oxygen Delivery Method Room Air Weight: 205 lb 14.588 oz Body Mass Index (BMI) 27.9 Intake and Output for Last 24 Hours 05/21/19 05/22/19 05/23/19 23:59 23:59 23:59 Intake Total 1640 / 1640 240 / 240 Output Total 1250 / 1250 300 / 300 Balance 390 / 390 -60 / -60 General: Alert, Oriented x3, Cooperative, No apparent distress HEENT: - - Findings compatible with varicella/zqaihuid-mwng-iggst Oral: Moist Mucosa Neck: Supple, No JVD Lungs: Clear to auscultation Cardiovascular: Regular rate, Normal S1, Normal S2 Abdomen: Bowel Sounds Present, Soft, Non Tender Extremities: No edema Skin: Rash Present - Head: Left-sided: Compatible with the patient's diagnosis of shingles Neurological: Neuro grossly intact Psych/Mental Status: Normal Affect Comment: Cardiac catheterization site: Pulses 2+/4+: No bruits: No hematoma Laboratory Results 05/22/19 11:05: Activated Clotting Time 191 H 05/22/19 13:23: POC Glucose 162 H 05/22/19 17:06: POC Glucose 106 05/22/19 22:16: POC Glucose 133 H 05/23/19 02:13: POC Glucose 142 H 05/23/19 06:20: WBC 12.0 H, RBC 3.90 L, Hgb 12.1 L, Hct 35.3 L, MCV 90.5, MCH 31.0, MCHC 34.3, RDW Std Deviation 42.5, RDW Coeff of Jane 13.0, Plt Count 192, MPV 9.6 05/23/19 06:20: Sodium 135 L, Potassium 4.2, Chloride 108 H, Carbon Dioxide 23.0, Anion Gap 4 L, BUN 24 H, Creatinine 1.42 H, Estim Creat Clear Calc 55.41, Est GFR (MDRD) Af Amer 64, Est GFR (MDRD) Non-Af 53 L, BUN/Creatinine Ratio 16.9, Glucose 157 H, Calcium 7.8 L, Total Bilirubin 0.50, AST 6 L, ALT 17, Alkal ine Phosphatase 65, Total Protein 6.7, Albumin 3.5, Globulin 3.2, Albumin/Globulin Ratio 1.1 05/23/19 08:20: POC Glucose 137 H Current Medications Acetaminophen (Tylenol) 650 mg PO Q6H PRN PRN PRN Reason: Pain Score 1-3/10 Last Admin: 05/23/19 08:33 Dose: 650 mg Documented by: Amlodipine Besylate (Norvasc) 10 mg PO DAILY [facility] Last Admin: 05/23/19 08:29 Dose: 10 mg Documented by: Aspirin (Aspirin, Baby) 81 mg PO DAILY@0800 [facility] Last Admin: 05/23/19 08:27 Dose: 81 mg Documented by: Atropine Sulfate () 0.5 mg IV UD PRN PRN Reason: HR <50 bpm Carvedilol (Coreg) 6.25 mg PO BID [facility] Last Admin: 05/23/19 08:27 Dose: 6.25 mg Documented by: Clopidogrel Bisulfate (Plavix) 75 mg PO DAILY [facility] Last Admin: 05/23/19 08:27 Dose: 75 mg Documented by: Heparin Sodium (Beef Lung) (Heparin 500 Unit/5 Ml (100/Ml)) 500 unit IV UD PRN PRN Reason: HEPARIN FLUSH Hydrocortisone (Hytone) 1 applic TOPICAL 4X/DAY [facility]; Protocol Last Admin: 05/23/19 08:31 Dose: 1 applicatio Documented by: Isosorbide Mononitrate (Imdur) 30 mg PO DAILY [facility] Last Admin: 05/23/19 08:27 Dose: 30 mg Documented by: Labetalol HCl (Trandate) 5 mg IV X1 PRN PRN Reason: SBP > 160 when pulling sheath Lorazepam (Ativan) 1 mg PO Q6H PRN PRN PRN Reason: BACK SPASMS/ANXIETY Losartan Potassium (Cozaar) 25 mg PO DAILY [facility] Last Admin: 05/23/19 08:29 Dose: 25 mg Documented by: Lovastatin (Mevacor) 20 mg PO QHS [facility] Last Admin: 05/22/19 22:17 Dose: 20 mg Documented by: Melatonin (Melatonin) 3 mg PO QHS PRN PRN Reason: SLEEP Metoclopramide HCl (Reglan) 5 mg IV Q6H PRN PRN PRN Reason: NAUSEA/VOMITING Morphine Sulfate () 2 mg IV Q4H PRN PRN PRN Reason: Mild back pain (1-10/10) Nitroglycerin (Nitrostat) 0.4 mg SUBLINGUAL Q5M PRN PRN Reason: CARDIAC/CHEST PAIN Sodium Chloride () 500 ml IV BOLUS PRN PRN Reason: VASO-VAGAL PROTOCOL Sodium Chloride () 10 - 40 ml IV UD PRN PRN Reason: SALINE FLUSH Last Admin: 05/23/19 05:26 Dose: 20 ml Documented by: Spironolactone (Aldactone) 25 mg PO DAILY [facility] Last Admin: 05/23/19 08:29 Dose: 25 mg Documented by: Tobramycin/Dexamethasone (Tobradex) 1 drop LEFT EYE Q6 [facility] Last Admin: 05/23/19 05:26 Dose: 1 drop Documented by: Discharge Diet: Low fat/ Low Cholesterol, 1800 Calorie Control Diet Discharge Activity: May Not Drive - May not drive x48 hours, May Shower - May shower today, May Take a Tub Bath - May not take a tub bath for 7 days May resume sexual activity in: 2 weeks Weight Bearing Status: - - Avoid heavy exertional activity x1 week Call your doctor if your incision/area has: Continuous Slow Oozing, Sudden Increased Bleeding, Increased Pain/ Swelling, Increased Redness, Foul Smelling Discharge, Swelling at the incision site Call your doctor if you observe: Shortness of breath, Dizziness, Fainting spells, Swelling in the ankles, Chest pain Change Dressing in (Days):: 1 Remove Dressing in (days):: 1 Cleanse incision/area with: Soap & Water Home Medications: Medications to take at Discharge Aspirin [Aspirin, Baby] 81 mg PO DAILY@0800 09/10/14 losartan 25 mg tablet 25 mg PO DAILY #90 tab 05/21/18 lovastatin 20 mg tablet 20 mg PO QHS #90 tab 07/07/18 clopidogrel 75 mg tablet 75 mg PO DAILY #90 tab 08/21/18 melatonin 3 mg tablet 3 mg PO HS PRN 09/01/18 metformin 500 mg tablet 500 mg PO BID tab 09/01/18 nitroglycerin 0.4 mg sublingual tablet 0.4 mg SUBLINGUAL Q5M PRN #25 tab 09/01/18 amlodipine 10 mg tablet 10 mg PO DAILY #90 tab 09/22/18 carvedilol 6.25 mg tablet 6.25 mg PO BID #180 tab 10/15/18 isosorbide mononitrate ER 30 mg tablet,extended release 24 hr 30 mg PO QDAY 90 Days #90 tab 10/15/18 spironolactone 25 mg tablet 25 mg PO DAILY #90 tab 11/04/18 Hydrocortisone 2.5% Crm [Hytone] 1 applic TOPICAL 4X/DAY tube 05/23/19 Lovastatin [Mevacor] 20 mg PO QHS tab 05/23/19 Nitroglycerin (INPATIENT USE) [Nitrostat] 0.4 mg SUBLINGUAL Q5M PRN tab.subl 05/23/19 Tobram/Dexam [Tobradex] 1 drop LEFT EYE Q6 opth.btl 05/23/19 Primary Care Physician: Yahir Vidal MD [Primary Care Provider] - Please Follow Up With: Pratik Yoder MD When: To be arranged by the [facility] Disposition: Home Minutes spent on discharge:: 45 Patient Condition:: Stable Medical Necessity - Tobacco Use Smoking Status: Current every day smoker Meaningful Use Info Meaningful Use Diagnoses (Choose all that apply): None applicable
== END 2019-05-23 11:30 | disposition home or self-care (01) ==
LOC: CLSP 08:45 → ICU 11:39
PROVIDERS: Internal Medicine Cardiovascular Disease; Family Provider Internal Medicine; PCP Internal Medicine; Referring Provider Internal Medicine Cardiovascular Disease; Visit Provider Internal Medicine Cardiovascular Disease
DX: I25.10 Atherosclerotic heart disease of native coronary artery without angina pectoris (principal); B02.9 Zoster without complications; R94.39 Abnormal result of other cardiovascular function study; E11.9 Type 2 diabetes mellitus without complications; E78.00 Pure hypercholesterolemia, unspecified; I43 Cardiomyopathy in diseases classified elsewhere; I25.2 Old myocardial infarction; I34.0 Nonrheumatic mitral (valve) insufficiency; I10 Essential (primary) hypertension; Z95.5 Presence of coronary angioplasty implant and graft; Z82.49 Family history of ischemic heart disease and other diseases of the circulatory system; Z79.82 Long term (current) use of aspirin; Z79.84 Long term (current) use of oral hypoglycemic drugs; Z88.0 Allergy status to penicillin; Z88.2 Allergy status to sulfonamides; Z88.8 Allergy status to other drugs, medicaments and biological substances; Z95.810 Presence of automatic (implantable) cardiac defibrillator; F17.210 Nicotine dependence, cigarettes, uncomplicated; I44.7 Left bundle-branch block, unspecified; I25.5 Ischemic cardiomyopathy; I47.2 Ventricular tachycardia
CPT/HCPCS: 80053; 82962; 85027; 85347; 92928; 93005; 93458; 99152; 99153; C1760; J7030; J7040; Q9967; A4216; C1725; C1769; C1874; C1887; C1894; C9600

== ENCOUNTER → 2019-06-17 12:21 | Outpatient (CLI) | payer MEDICARE, OTHER, SELFPAY ==
[2019-06-15 14:39] VITALS: BMI 28.5
[2019-06-17 14:07] LABS: AST(SGOT) 10 U/L (15-37); Alanine Aminotransfer ALT/SGPT 24 U/L (16-61); Alkaline Phosphatase 63 U/L (45-117); Cholesterol 157 mg/dL (200); Globulin 3.5 g/dL (2.2-4.2); High Density Lipoprotein 31 mg/dL; Protein, Total 7.5 g/dL (6.4-8.2); Triglycerides 413 mg/dL
== END ==
PROVIDERS: Family Provider Internal Medicine; PCP Internal Medicine; Referring Provider Nurse Practitioner Family; Visit Provider Nurse Practitioner Family
DX: I10 Essential (primary) hypertension (principal); I25.10 Atherosclerotic heart disease of native coronary artery without angina pectoris; E78.00 Pure hypercholesterolemia, unspecified; Z95.5 Presence of coronary angioplasty implant and graft
CPT/HCPCS: 36415; 80061; 80076

== ENCOUNTER → 2019-07-28 09:40 | Outpatient (CLI) | payer MEDICARE, OTHER, SELFPAY ==
[2019-06-15 14:39] VITALS: BMI 28.5
[2019-07-28 11:18] LABS: AST(SGOT) 11 U/L (15-37); Alanine Aminotransfer ALT/SGPT 25 U/L (16-61); Albumin, Serum 3.9 g/dL (3.2-5.0); Alkaline Phosphatase 47 U/L (45-117); Bilirubin, Direct 0.14 mg/dL (0.00-0.30); Cholesterol 173 mg/dL (200); Globulin 3.2 g/dL (2.2-4.2); High Density Lipoprotein 29 mg/dL; Protein, Total 7.1 g/dL (6.4-8.2); Triglycerides 203 mg/dL; Very Low Density Lipoprotein 41 mg/dL (5-40)
== END ==
PROVIDERS: PCP Internal Medicine; Referring Provider Internal Medicine Cardiovascular Disease; Visit Provider Internal Medicine Cardiovascular Disease
DX: E78.00 Pure hypercholesterolemia, unspecified (principal)
CPT/HCPCS: 36415; 80061; 80076

== ENCOUNTER → 2019-09-09 15:29 | Outpatient (CLI) | payer MEDICARE, OTHER, SELFPAY ==
[2019-05-22 13:22] VITALS: BMI 28.5
[2019-06-15 14:39] VITALS: BMI 28.5
[2019-09-09 16:15] LABS: Absolute Lymphocyte Count 2.18 X10^3/uL (0.83-4.51); Absolute Neutrophil Count 6.9 X10^3/uL (2.0-7.7); Basophil# 0.05 X10^3/uL; Basophil% 0.5 % (0-1); Eosinophils% 3.7 % (0-5); Hematocrit 39.5 % (40-54); Hemoglobin 12.8 g/dL (13.0-16.5); Lymphocyte # 2.18 X10^3/ul (4.0); Lymphocyte % 20.1 % (19-41); Mean Corp Hgb Conc 32.4 g/dL (32-36); Mean Corpuscular Hgb 30.3 pg (27.0-32.0); Mean Corpuscular Volume 93.4 fL (80-94); Mean Platelet Vol. 9.3 fl (6.2-12.0); NRBC Flagged by Analyzer 0 % (0-5); Neutrophil # 6.85 X10^3/uL (2.7-7.7); Platelet Count 313 K/mm3 (150-450); RBC Distribution Width CV 13.4 % (11.6-14.6); RBC Distribution Width SD 45.7 fl (35.1-43.9); Red Blood Count 4.23 M/mm3 (4.6-6.2); White Blood Count 10.9 K/mm3 (4.4-11.0)
[2019-09-09 16:35] LABS: ALB/GLOB Ratio 1.3 RATIO (0.9-2.4); AST(SGOT) 15 U/L (15-37); Alanine Aminotransfer ALT/SGPT 31 U/L (16-61); Albumin, Serum 4.1 g/dL (3.2-5.0); Alkaline Phosphatase 53 U/L (45-117); Anion Gap 7 (5-15); BUN 21 mg/dL (7-18); BUN/Creat Ratio 12.2 RATIO (10-20); Calcium,Total 8.7 mg/dL (8.5-10.1); Chloride 104 mmol/L (98-107); Creatinine, Serum 1.72 mg/dL (0.70-1.30); EST Glomerular Filtration Rate 42 mL/min (>60); Est Glom Filt Rate - Afr Amer 51 mL/min (>60); Globulin 3.1 g/dL (2.2-4.2); Glucose 107 mg/dL (74-106); PSA,Total - Annual Screen 1.13 ng/mL (0.00-4.00); Potassium 4.5 mmol/L (3.5-5.1); Protein, Total 7.2 g/dL (6.4-8.2); Sodium Level 137 mmol/L (136-145); Thyroid Stim Hormone (TSH) 1.32 uIU/mL (0.358-3.74)
[2019-09-10 11:43] LABS: Hepatitis C Antibody Non-Reactive (Nonreactive)
== END ==
PROVIDERS: Visit Provider Family Medicine Geriatric Medicine
DX: E11.9 Type 2 diabetes mellitus without complications (principal); I10 Essential (primary) hypertension; Z12.5 Encounter for screening for malignant neoplasm of prostate; Z13.89 Encounter for screening for other disorder
CPT/HCPCS: 36415; 80053; 84153; 84443; 85025; 86803; G0103

== ENCOUNTER → 2019-09-15 09:06 | Outpatient (CLI) | payer MEDICARE, OTHER, SELFPAY ==
[2019-06-15 14:39] VITALS: BMI 28.5
--- NOTE | 2019-09-15 09:10 | US_ITS ---
PROCEDURES: ULTRASOUND AORTA REASON FOR EXAM: Male, 69 years old. AAA TECHNIQUE: Ultrasound evaluation of the aorta was performed with real-time and static kingsley-scale imaging. Limited study due to overlying bowel gas. COMPARISON: None. FINDINGS: There is no elongation or tortuosity of the abdominal aorta. Proximal portion of the abdominal aorta is not well seen due to overlying bowel gas. Aorta measures: Middle 4.0 cm. Distal 2.2 cm. Aorta measure transversely: Middle 2.1 cm. Distal 3.3 cm. Right iliac artery measures: 1.7 cm. Right iliac artery measure transversely: 2.3 cm. Left iliac artery measures: 2.1 cm. Left iliac artery measure transversely: 1.7 cm. There is a demonstrated fusiform aneurysm.. This measures 3.2 cm in transverse dimension. US/Aorta IMPRESSION: Fusiform infrarenal abdominal aortic aneurysm with a transverse dimension of 3.2 cm. Electronically Signed: Keenan Gardner, at 10:18 EDT , Service support ,
== END ==
PROVIDERS: PCP Family Medicine Geriatric Medicine; Referring Provider Family Medicine Geriatric Medicine; Visit Provider Family Medicine Geriatric Medicine
DX: I71.4 Abdominal aortic aneurysm, without rupture (principal)
CPT/HCPCS: 76775

== ENCOUNTER → 2019-09-16 11:04 | Outpatient (CLI) | payer MEDICARE, OTHER, SELFPAY ==
[2019-06-15 14:39] VITALS: BMI 28.5
[2019-09-16 12:57] LABS: Anion Gap 5 (5-15); BUN 22 mg/dL (7-18); BUN/Creat Ratio 13.1 RATIO (10-20); Calcium,Total 8.8 mg/dL (8.5-10.1); Chloride 109 mmol/L (98-107); Creatinine, Serum 1.68 mg/dL (0.70-1.30); EST Glomerular Filtration Rate 43 mL/min (>60); Est Glom Filt Rate - Afr Amer 53 mL/min (>60); Glucose 149 mg/dL (74-106); Potassium 4.2 mmol/L (3.5-5.1); Sodium Level 137 mmol/L (136-145)
== END ==
PROVIDERS: PCP Family Medicine Geriatric Medicine; Visit Provider Family Medicine Geriatric Medicine
DX: I50.22 Chronic systolic (congestive) heart failure (principal)
CPT/HCPCS: 36415; 80048

== ENCOUNTER → 2019-09-22 11:44 | Outpatient (CLI) | payer MEDICARE, OTHER, SELFPAY ==
[2019-06-15 14:39] VITALS: BMI 28.5
[2019-09-22 12:53] LABS: Protein, Urine (Random) 42.8 mg/dL (<11.9); Protein:Creat Ratio 157 mg/g CRE (0-200)
[2019-09-22 12:54] LABS: Albumin, Serum 3.5 g/dL (3.2-5.0); BUN 22 mg/dL (7-18); BUN/Creat Ratio 15.8 RATIO (10-20); Calcium,Total 8.7 mg/dL (8.5-10.1); Chloride 114 mmol/L (98-107); Creatinine, Serum 1.39 mg/dL (0.70-1.30); EST Glomerular Filtration Rate 54 mL/min (>60); Est Glom Filt Rate - Afr Amer 65 mL/min (>60); Glucose 138 mg/dL (74-106); Phosphorus 2.4 mg/dL (2.5-4.9); Potassium 4.6 mmol/L (3.5-5.1); Sodium Level 142 mmol/L (136-145)
--- NOTE | 2019-09-22 13:47 | US_ITS ---
STUDY: RENAL ULTRASOUND - COMPLETE REASON FOR EXAM: Male, 69 years old. ckd stage 3 TECHNIQUE: Ultrasound evaluation of the kidneys was performed with real-time and static hyde-scale imaging. COMPARISON: None. FINDINGS: RIGHT KIDNEY: Normal location of the right kidney, which is normal in size. The right kidney measures 12.7 cm x 4.7 sinus by 5.6 cm. There is a normal cortex of the right kidney. The renal cortex measures 1.2 cm. There is a 1.9 cm x 1.4 cm x 1.7 cm echogenic nodule suggestive of a small angiomyolipoma. This is located in the medial midportion of the kidney. There are no right renal calculi. There is no right hydronephrosis. DISTAL RIGHT URETER: There is non-visualization of the distal right ureter. There is no demonstrated right ureterovesical junction calculus. There is no demonstrated right ureteral jet. LEFT KIDNEY: Normal location of the left kidney, which is normal in size. The left kidney measures 11.2 cm x 6.5 cm x 5.5 cm. There is a normal cortex of the left kidney. The renal cortex measures 1.4 cm. There is a 1.4 cm x 1.3 cm x 1.3 cm cyst. There are no left renal calculi. There is no left hydronephrosis. DISTAL LEFT URETER: There is non-visualization of the distal left ureter. There is no demonstrated left ureterovesical junction calculus. There is no demonstrated left ureteral jet. BLADDER: The urinary bladder is not adequately distended for assessment. 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 Small left renal cyst. Electronically Signed: Keenan Gardner, at 14:56 EDT , Service support ,
== END ==
LOC: US 11:45 → LAB 13:37 → US 13:42
PROVIDERS: PCP Family Medicine Geriatric Medicine; Referring Provider Internal Medicine Nephrology; Visit Provider Internal Medicine Nephrology
DX: N18.3 Chronic kidney disease, stage 3 (moderate) (principal); N17.9 Acute kidney failure, unspecified; E11.22 Type 2 diabetes mellitus with diabetic chronic kidney disease
CPT/HCPCS: 36415; 76770; 80069; 82570; 84156

== ENCOUNTER → 2019-10-06 11:26 | Outpatient (CLI) | payer MEDICARE, OTHER, SELFPAY ==
[2019-05-22 13:22] VITALS: BMI 28.5
[2019-06-15 14:39] VITALS: BMI 28.5
[2019-10-06 12:36] LABS: Anion Gap 6 (5-15); BUN 19 mg/dL (7-18); BUN/Creat Ratio 12.5 RATIO (10-20); Calcium,Total 8.6 mg/dL (8.5-10.1); Chloride 111 mmol/L (98-107); Creatinine, Serum 1.52 mg/dL (0.70-1.30); EST Glomerular Filtration Rate 49 mL/min (>60); Est Glom Filt Rate - Afr Amer 59 mL/min (>60); Glucose 134 mg/dL (74-106); Potassium 4.3 mmol/L (3.5-5.1); Sodium Level 141 mmol/L (136-145)
== END ==
PROVIDERS: PCP Family Medicine Geriatric Medicine; Referring Provider Family Medicine Geriatric Medicine; Visit Provider Family Medicine Geriatric Medicine
DX: I50.22 Chronic systolic (congestive) heart failure (principal)
CPT/HCPCS: 36415; 80048

== ENCOUNTER → 2019-10-13 12:11 | Outpatient (CLI) | payer MEDICARE, OTHER, SELFPAY ==
[2019-06-15 14:39] VITALS: BMI 28.5
[2019-10-13 13:07] LABS: Anion Gap 4 (5-15); BUN 17 mg/dL (7-18); Calcium,Total 9.2 mg/dL (8.5-10.1); Chloride 107 mmol/L (98-107); Creatinine, Serum 1.42 mg/dL (0.70-1.30); EST Glomerular Filtration Rate 53 mL/min (>60); Est Glom Filt Rate - Afr Amer 64 mL/min (>60); Glucose 128 mg/dL (74-106); Potassium 4.7 mmol/L (3.5-5.1); Sodium Level 138 mmol/L (136-145)
== END ==
PROVIDERS: PCP Family Medicine Geriatric Medicine; Referring Provider Family Medicine Geriatric Medicine; Visit Provider Family Medicine Geriatric Medicine
DX: N18.3 Chronic kidney disease, stage 3 (moderate) (principal)
CPT/HCPCS: 36415; 80048

== ENCOUNTER → 2019-11-03 12:16 | Outpatient (CLI) | payer MEDICARE, OTHER, SELFPAY ==
[2019-06-15 14:39] VITALS: BMI 28.5
[2019-11-03 15:45] LABS: Albumin, Serum 3.5 g/dL (3.2-5.0); BUN 21 mg/dL (7-18); BUN/Creat Ratio 15.2 RATIO (10-20); Calcium,Total 8.8 mg/dL (8.5-10.1); Chloride 111 mmol/L (98-107); Creatinine, Serum 1.38 mg/dL (0.70-1.30); EST Glomerular Filtration Rate 54 mL/min (>60); Est Glom Filt Rate - Afr Amer 66 mL/min (>60); Glucose 124 mg/dL (74-106); Phosphorus 2.5 mg/dL (2.5-4.9); Potassium 4.2 mmol/L (3.5-5.1); Sodium Level 143 mmol/L (136-145)
== END ==
PROVIDERS: PCP Family Medicine Geriatric Medicine; Referring Provider Internal Medicine Nephrology; Visit Provider Internal Medicine Nephrology
DX: N18.3 Chronic kidney disease, stage 3 (moderate) (principal)
CPT/HCPCS: 36415; 80069

== ENCOUNTER 2019-11-08 09:00 | Inpatient (IN) | payer MEDICARE, OTHER, SELFPAY ==
[2019-06-15 14:39] VITALS: BMI 28.5
[2019-11-08] VITALS (9 sets, daily range): BP systolic 134–146; BP diastolic 71–86; PULSE 68–79; RESP 14–18; TEMP 36.4–37; O2SAT 93–96; BMI 29.3; BMI 28.5; BMI 28.6
--- NOTE | 2019-11-08 09:13 | RAD_ITS ---
STUDY: X-RAY CHEST REASON FOR EXAM: Male, 69 years old. DYSPNEA TECHNIQUE: Single AP portable view of the chest. COMPARISON: May 29, 2019 FINDINGS: The patient place with lead overlying the right ventricle. Mild prominent interstitial markings are noted throughout. There is no demonstrated pleural abnormality. There is mild cardiac enlargement. Normal mediastinum and azra. Normal visualized pulmonary arteries. Normal visualized aortic arch and descending thoracic aorta. Normal visualized thoracic spine. Normal visualized ribs, clavicles, and shoulders. There is no demonstrated abnormality of the visualized soft tissue structures of the upper abdomen. RAD/Chest 1 View (Portable) IMPRESSION: Mild prominent interstitial markings noted throughout with underlying interstitial edema component not excluded. Electronically Signed: José Miguel Guan DO at 9:56 EDT , Service support ,
--- NOTE | 2019-11-08 09:13 | EKG12_ITS ---
Test Reason : WEAKNESS Blood Pressure : / mmHG Vent. Rate : 062 BPM Atrial Rate : 062 BPM P-R Int : 192 ms QRS Dur : 112 ms QT Int : 452 ms P-R-T Axes : 019 -01 170 degrees QTc Int : 458 ms Sinus rhythm with occasional Premature ventricular complexes Left ventricular hypertrophy with repolarization abnormality Abnormal ECG Confirmed by ZOILA RATLIFF, JERARDO ([id number]), scientific publications editor CELENA RADFORD ([id number]) on 11/10/2019 1:40:01 PM Referred By: MR Confirmed By:JERARDO CUMMINGS MD
--- NOTE | 2019-11-08 09:34 | ED.DCSUM_ITS ---
History of Present Illness Informant: Patient, EMS Onset: Yesterday Activity at onset: Exertion, Light Activity Timing: Continuous Quality: Dyspnea on exertion Current Severity: Mild Maximum Severity: Severe Worsened by: Exertion Relieved by: Nothing Associated Symptoms: Cough, Green sputum. Negative for: Bloody Sputum, Chills, Clear sputum, Ear pain, Fever, Post-nasal drainage, Rhinorrhea, Sore throat, Sweats, White sputum, Yellow sputum Chest Pain: None Narrative: 69-year-old male history of CHF presents to the emergency department with shortness of breath. The patient states this morning he bent over to feed his cats and became acutely short of breath. He states that he was unable to relieve his shortness of breath with rest and he called squad. He is not having chest pain. He had a similar episode yesterday but it did not last as long. He has had a mild cough over the last several days. No hemoptysis no chest pain or fevers no sore throat or congestion no myalgias no vomiting or diarrhea or abdominal pain. No leg pain or swelling. He was taken off his diuretic last month. He is unsure why PE Risk Factors: Negative for: Cancer, OCP + Smoking + > 35, Prior DVT or PE, Recent immobilization, Recent surgery, Recent travel Prior similar symptoms: Yes Recent Illness/Hospitalization: No <Se Monroe - Last Filed: 11/08/19 10:47> <Jeffrey Long - Last Filed: 11/08/19 15:15> Chief Complaint: Shortness of Breath Past Medical History Prior records reviewed: Yes Past Medical History: - - Coronary artery disease, CHF, hyperlipidemia, hypertension, T2DM, CKD Surgical History: herniorrhaphy, - - ICD Placement Lives: Alone Smoking Status: Current every day smoker Alcohol: Occasional Drugs: None <Se Monroe - Last Filed: 11/08/19 10:47> - Family History Maternal Family History: Family History (Last Reviewed 11/08/19 @ 11:[address] Rigoberto Rosario DO) Father Myocardial infarction, Onset Age: 70 CAD (coronary artery disease) Hx of CABG Mother CAD (coronary artery disease) Diabetes Pacemaker Brother Myocardial infarction Sister Myocardial infarction, Onset Age: 62 Rheumatic fever Son Hypertension Diabetes Daughter Diabetes <Jeffrye Long - Last Filed: 11/08/19 15:15> - Allergies and Home Meds Allergies/Adverse Reactions: Allergies FRANK Inhibitors Allergy (Verified 11/08/19 09:05) cough atorvastatin [From Lipitor] Allergy (Verified 11/08/19 09:05) myalgia gabapentin [From Neurontin] Allergy (Verified 11/08/19 09:05) numbness Penicillins Allergy (Verified 11/08/19 09:05) Hives Sulfa (Sulfonamide Antibiotics) Allergy (Verified 11/08/19 09:05) Hives Review of Systems All systems negative except as indicated General: Denies: Chills, Fever, Malaise Eyes: Denies: Visual changes - bilaterally, Blurred Vision - bilaterally, Diplopia ENT: Denies: Rhinorrhea, Sore throat Cardiovascular: Denies: Chest pain, Palpitations, Heart racing Respiratory: Reports: Dyspnea, Cough, Sputum, Dyspnea on exertion. Denies: Orthopnea, Paroxysmal nocturnal dyspnea Gastrointestinal: Denies: Abdominal pain, Nausea, Vomiting, Diarrhea Genitourinary: Denies: Dysuria, Hematuria, Frequency Musculoskeletal: Denies: Myalgias, Arthralgias, Neck pain, Back pain, Swelling, Extremity Pain Skin: Denies: Rash, Abscess, Abrasions, Wounds Neurological: Denies: Headache, Weakness, Parasthesia, Numbness Hematologic: Denies: Easy bruising, Easy bleeding <Se Monroe - Last Filed: 11/08/19 10:47> Physical Exam Vital Signs/Narrative: Vital Signs Temp Pulse Resp BP Pulse Ox 11/08/19 09:14 98.6 F 73 17 135/71 H 93 11/08/19 09:00 98.6 F 79 14 135/71 H 96 Inital Vital Signs reviewed: Yes General: Well nourished, Well developed, No Acute Distress Head: Normocephalic, Atraumatic Eyes: Perrl, EOMI ENT: Moist mucous membranes, No rhinorrhea Neck: Supple, Nontender Cardiovascular: Regular rate, Regular rhythm, No murmurs Respiratory: No distress, Chest nontender, Diminished, Decreased Air Movement. Negative for: Retractions, Chest tenderness Abdomen: Soft, Nontender, Nondistended, Normal bowel sounds Back: Nontender, Normal Inspection Extremities: Nontender, No edema. Negative for: Edema, Calf Tenderness Skin: Normal color, No rash Neurological: Alert, Oriented x3, Cranial nerves II-XII grossly intact, Normal Strength, Normal Sensation Psychological: Normal affect, Normal Mood <Se Monroe - Last Filed: 11/08/19 10:47> Diagnostic/Tx/Re-eval Chest X-Ray - ED: 1 View, Read by ED Physician, Read by Radiologist, Cardiomegaly, CHF - Rhythm Strip Rhythm Strip: Sinus Rhythm Rate: 62 Ectopy: None - EKG Initial EKG Interpretation: Sinus Rhythm, No Acute Injury Pattern, LBBB Prior: Unchanged Treatment - Dyspnea: Oxygen, Albuterol, Steroid Repeat Evaluation: No change - Medical Decision Making On initial presentation the patient's pulse ox on room air was 88%. He is not normally on home oxygen. He was placed onto 2 L nasal cannula with improvement. EKG shows sinus rhythm with a left bundle branch block without signs of acute ischemic change. unchanged in his previous EKG. He is not having chest pain on arrival. Laboratory work-up shows a proBNP of over 2000 and a troponin of 0.088. Chest x-ray shows diffuse interstitial edema consistent with CHF. Patient continues to require oxygen. He was given 40 mg of IV Lasix and we will plan on admitting him to the hospital for further treatment and evaluation. Per protocol we did order a coronavirus test <Se Monroe - Last Filed: 11/08/19 10:47> - Medical Decision Making Attending Note: I evaluated this patient with the midlevel provider. I performed my own face to face evaluation and agree with the above noted history and physical. I agree with the plan of care and the disposition. Patient presented secondary to shortness of breath. Upon arrival the patient was noted to be on room air, hypoxic. He is not typically on supplemental O2. Patient was found after work-up to have evidence of congestive heart failure with cardiac strain and an indeterminate troponin. Patient was given IV Lasix and will be admitted for further treatment. <Jeffrey Long - Last Filed: 11/08/19 15:15> ED Disposition <Se Monroe - Last Filed: 11/08/19 10:47> <Jeffrey Long - Last Filed: 11/08/19 15:15> - Plan for ED Patient: Disposition: Acute Care [facility] Diagnosis: Acute CHF (congestive heart failure), Hypoxia, Troponin I above reference range, Atherosclerotic heart disease of [place] coronary artery without angina pectoris, Automatic implantable cardiac defibrillator in situ, CKD (chronic kidney disease) stage 3, GFR 30-59 ml/min, Cardiomyopathy in other diseases classified elsewhere, Essential (primary) hypertension, Type 2 diabetes mellitus, Pure hypercholesterolemia
[2019-11-08 09:44] LABS: Absolute Lymphocyte Count 1.06 X10^3/uL (0.83-4.51); Absolute Neutrophil Count 9.4 X10^3/uL (2.0-7.7); Basophil# 0.04 X10^3/uL; Basophil% 0.3 % (0-1); Eosinophil# 0.24 X10^3/uL; Hematocrit 37.6 % (40-54); Lymphocyte # 1.06 X10^3/ul (4.0); Mean Corp Hgb Conc 31.9 g/dL (32-36); Mean Corpuscular Hgb 29.9 pg (27.0-32.0); Mean Corpuscular Volume 93.8 fL (80-94); Mean Platelet Vol. 10.4 fl (6.2-12.0); Monocyte# 1.03 X10^3/uL; Monocyte% 8.8 % (0-10); NRBC Flagged by Analyzer 0 % (0-5); Neutrophil # 9.36 X10^3/uL (2.7-7.7); Neutrophil % 79.6 % (47-70); Platelet Count 192 K/mm3 (150-450); RBC Distribution Width CV 12.7 % (11.6-14.6); RBC Distribution Width SD 43.8 fl (35.1-43.9); Red Blood Count 4.01 M/mm3 (4.6-6.2); White Blood Count 11.8 K/mm3 (4.4-11.0)
[2019-11-08 09:53] LABS: Anion Gap 6 (5-15); BUN 16 mg/dL (7-18); BUN/Creat Ratio 11.8 RATIO (10-20); Calcium,Total 8.4 mg/dL (8.5-10.1); Chloride 112 mmol/L (98-107); Creatinine, Serum 1.36 mg/dL (0.70-1.30); EST Glomerular Filtration Rate 55 mL/min (>60); Est Glom Filt Rate - Afr Amer 67 mL/min (>60); Estimated Creatinine Clearance 57.06 ml/min; Glucose 196 mg/dL (74-106); Sodium Level 142 mmol/L (136-145)
[2019-11-08 10:22] LABS: BNP,B-Type NATRIURETIC PEPTIDE 2046.9 pg/mL (0-100)
[2019-11-08] MEDS: Furosemide 40 MG/4 ML Vial IV ×2 (11:02→17:14)
--- NOTE | 2019-11-08 11:34 | HP.PCM_ITS ---
Problem List (1) Acute CHF (congestive heart failure) Status: Acute (2) Troponin I above reference range Status: Acute (3) CKD (chronic kidney disease) stage 3, GFR 30-59 ml/min Status: Chronic (4) Type 2 diabetes mellitus Status: Chronic (5) Presence of stent in coronary artery Status: Chronic Comment: PTCA/YUDY to LCX and PTCA/YUDY to mid and distal RCA 06/22/11; Successful PTCA/YUDY to proximal/mid PL branch of RCA with a 3.0 x 38 Promus Synergy, post dilated proximally with a 3.5 x 8 NC Balloon; 75%-->0%, no dissection. 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 transplanted heart: circle heart Qualified Code(s): I25.10 - Atherosclerotic heart disease of circle coronary artery without angina pectoris History of Present Illness Date of Admission: 11/08/19 Chief Complaint: shortness of breath The patient is a 69 year old M presents with 2-day history of shortness of breath. Patient that he felt short of breath yesterday when he awoke and then later in the day and then again this morning. He was concerned and sent to the emergency room. Patient was not noted to be hypoxic. Patient was placed on oxygen despite being 96% on room air. Patient chest x-ray is concerning for CHF and a BNP is greater than 2000. He received 40 mg of IV furosemide. Patient had been on diuretics up until September when he was taken off by his primary care provider presumably due to his kidney disease. Patient states that his weight has fluctuated but more or less been the same. Denies any lower extremity edema. And otherwise no other new complaints. [] Past Medical History Past Medical History (Chronic Problems): Chronic Problems (Last Updated 04/14/20 @ 16:06 by Leyla Rodrigez) CKD (chronic kidney disease) stage 3, GFR 30-59 ml/min (Chronic) Type 2 diabetes mellitus (Chronic) Presence of stent in coronary artery (Chronic 05/22/19) PTCA/YUDY to LCX and PTCA/YUDY to mid and distal RCA 06/22/11; Successful PTCA/YUDY to proximal/mid PL branch of RCA with a 3.0 x 38 Promus Synergy, post dilated proximally with a 3.5 x 8 NC Balloon; 75%-->0%, no dissection. 05/22/19 Pure hypercholesterolemia (Chronic) Essential (primary) hypertension (Chronic) Other manager intermediate (current) drug therapy (Chronic) Automatic implantable cardiac defibrillator in situ (Chronic) Cardiomyopathy in other diseases classified elsewhere (Chronic) Blurred vision (Chronic) Ventricular tachycardia (Chronic) Atherosclerotic heart disease of circle coronary artery without angina pectoris (Chronic) Medical History: Medical History (Last Reviewed 11/08/19 @ 11:[address] Rigoberto Rosario, DO) CKD (chronic kidney disease) stage 3, GFR 30-59 ml/min (Chronic) N18.3 Type 2 diabetes mellitus (Chronic) E11.9 Presence of stent in coronary artery (Chronic) Onset Date: 05/22/19 Z95.5 PTCA/YUDY to LCX and PTCA/YUDY to mid and distal RCA 06/22/11; Successful PTCA/YUDY to proximal/mid PL branch of RCA with a 3.0 x 38 Promus Synergy, post dilated proximally with a 3.5 x 8 NC Balloon; 75%-->0%, no dissection. 05/22/19 Old myocardial infarction (Acute) I25.2 Pure hypercholesterolemia (Chronic) E78.00 Essential (primary) hypertension (Chronic) I10 Other manager intermediate (current) drug therapy (Chronic) Z79.899 Automatic implantable cardiac defibrillator in situ (Chronic) Z95.810 Cardiomyopathy in other diseases classified elsewhere (Chronic) I43 Abnormal echocardiogram (Inactive) R93.1 Abnormal myocardial perfusion study (Inactive) R94.39 Blurred vision (Chronic) H53.8 Chest tightness (Inactive) R07.89 Ventricular tachycardia (Chronic) I47.2 Atherosclerotic heart disease of circle coronary artery without angina pectoris (Chronic) I25.10 Acute [place], subendocardial, subsequent episode of care I21.4 Allergies FRANK Inhibitors Allergy (Verified 11/08/19 09:05) cough atorvastatin [From Lipitor] Allergy (Verified 11/08/19 09:05) myalgia gabapentin [From Neurontin] Allergy (Verified 11/08/19 09:05) numbness Penicillins Allergy (Verified 11/08/19 09:05) Hives Sulfa (Sulfonamide Antibiotics) Allergy (Verified 11/08/19 09:05) Hives Home Medications: Ambulatory Orders Medication Instructions Recorded Aspirin [Aspirin, Baby] 81 mg PO DAILY@0800 09/10/14 melatonin 3 mg tablet 3 mg PO HS PRN 09/01/18 nitroglycerin 0.4 mg sublingual 0.4 mg SUBLINGUAL Q5M PRN #25 tab 09/01/18 tablet clopidogrel 75 mg tablet 75 mg PO DAILY #90 tab 09/07/19 rosuvastatin 10 mg tablet 10 mg PO DAILY 09/22/19 sacubitril 24 mg-valsartan 26 mg 1 tab PO BID 09/22/19 tablet carvedilol 6.25 mg tablet 6.25 mg PO BID #180 tab 11/04/19 isosorbide mononitrate 30 mg 30 mg PO QDAY 90 Days #90 tab 11/04/19 tablet,extended release 24 hr Icosapent Ethyl [Vascepa] 2 cap PO BID 11/08/19 Sacubitril/Valsartan 97-103 mg 1 ea PO BID 11/08/19 [Entresto 97 mg-103 mg Tablet] Surgical History: Surgical History (Last Reviewed 11/08/19 @ 11:[address] Rigoberto Rosario, DO) History of herniorrhaphy Z98.890, Z87.19 Presence of coronary angioplasty implant and graft Onset Date: ~05/22/19 Z95.5 PTCA/YUDY to LCX and PTCA/YUDY to mid and distal RCA 06/22/11; Successful PTCA/YUDY to proximal/mid PL branch of RCA with a 3.0 x 38 Promus Synergy, post dilated proximally with a 3.5 x 8 NC Balloon; 75%-->0%, no dissection. 05/22/19 Surgical History: herniorrhaphy, - - ICD Placement Lives: Alone Smoking Status: Heavy Smoker (>10/day) Tobacco Use: Cigarettes Alcohol: Occasional Drugs: None - *Family History Maternal Family History: Family History (Last Reviewed 11/08/19 @ 11:[address] Rigoberto Rosario DO) Father Myocardial infarction, Onset Age: 70 CAD (coronary artery disease) Hx of CABG Mother CAD (coronary artery disease) Diabetes Pacemaker Brother Myocardial infarction Sister Myocardial infarction, Onset Age: 62 Rheumatic fever Son Hypertension Diabetes Daughter Diabetes Review of Systems Constitutional: Denies: Anorexia, Chills, Fever, Malaise, Weakness Eyes: Reports: Blurred vision - Intermittent. Chronic.. Denies: Double vision HEENT: Denies: Head Aches, Sinus Congestion, Sinus Drainage Cardiovascular: Denies: Chest Pain, Edema, Palpitations Respiratory: Reports: Cough, Shortness of Breath Gastrointestinal: Denies: Abdominal Pain, Nausea, Vomiting Genitourinary: Denies: Dysuria Musculoskeletal: Denies: Joint Pain, Joint Tenderness Skin: Denies: Rash, Wounds Neurological: Denies: Numbness, Tingling, Focal weakness Psychiatric: Denies: Anxiety, Depression Comment: All review of systems were negative except as mentioned above in the history of present illness and the other review of systems. VTE Information - Inpt Only VTE Present on Admission: No VTE Mechan Device Prophylaxis: None VTE Pharm Prophylaxis ordered?: Yes Patient Problems: Active and Suspected Problems (Last Updated 09/22/19 @ 16:06 by Leyla Rodrigez) Acute CHF (congestive heart failure) (Acute) Troponin I above reference range (Acute) - Physical Exam Vitals/I&O's: Vital Signs Temp Pulse Resp BP Pulse Ox 36.6 C 70 15 134/84 H 95 11/08/19 10:55 11/08/19 10:55 11/08/19 10:55 11/08/19 10:55 11/08/19 10:55 Oxygen Flow Rate (L/min) 2 Oxygen Delivery Method Nasal Cannula Weight: 98.2 kg Body Mass Index (BMI) 29.3 General: Alert, No apparent distress HEENT: Atraumatic, Normocephalic Oral: Moist Mucosa, No Gingival or Mucosal Lesions/ Ulcerations Neck: No Nodes, Trachea Midline Lungs: Clear to auscultation, Normal air movement Cardiovascular: Regular rate, Regular Rhythm, Normal S1, Normal S2, No murmurs Abdomen: Bowel Sounds Present, Soft, Non Tender, Non-Distended, No Hepato-splenomegaly Extremities: No Calf Tenderness, Edema - Minimal in lower extremities Skin: No rashes, No breakdown Musculoskeletal: No Tenderness to Palpation of Joints or Extremities, No Muscle Wasting Neurological: Deep Tendon Reflexes 2+/4 and Symmetrical, Sensory exam intact to light touch and pain Psych/Mental Status: Normal Affect, Appropriate Laboratory Results 11/08/19 09:28: WBC 11.8 H, RBC 4.01 L, Hgb 12.0 L, Hct 37.6 L, MCV 93.8, MCH 29.9, MCHC 31.9 L, RDW Std Deviation 43.8, RDW Coeff of Jane 12.7, Plt Count 192, MPV 10.4, Immature Gran % (Auto) 0.300, Neut % (Auto) 79.6 H, Lymph % (Auto) 9.0 L, Green % (Auto) 8.8, Eos % (Auto) 2.0, Baso % (Auto) 0.3, Absolute Neuts (auto) 9.4 H, Absolute Lymphs (auto) 1.06, Nucleated RBC % 0 11/08/19 09:28: Sodium 142, Potassium 4.0, Chloride 112 H, Carbon Dioxide 24.0, Anion Gap 6, BUN 16, Creatinine 1.36 H, Estim Creat Clear Calc 57.06, Est GFR (MDRD) Af Amer 67, Est GFR (MDRD) Non-Af 55 L, BUN/Creatinine Ratio 11.8, Glucose 196 H, Calcium 8.4 L, Troponin I 0.088 H 11/08/19 09:28: B-Natriuretic Peptide 2046.9 H Chest x-ray personally reviewed and shows some pulmonary vascular congestion. EKGs personally reviewed and showed normal sinus rhythm with LVH and a PVC. Assessment/Plan All Active Problems (Last Updated 09/22/19 @ 16:06 by Leyla Rodrigez) Acute CHF (congestive heart failure) (Acute) Troponin I above reference range (Acute) 1. Acute heart failure with reduced ejection fraction. * Patient has an EF of 35% from echocardiogram dated April 21, 2019. * Patient had been taken off of his furosemide roughly 2 months ago. Patient did receive IV furosemide in the emergency room and will continue on the floor at 40 mg twice daily. * Continue with sacubitril. Continue with carvedilol. * Fluid restrict 1500 cc/day. Strict I's and O's. * Given that is been about 6 months since the patient's last echocardiogram will recheck as patient has had percutaneous coronary intervention since his last echocardiogram. 2. CAD * Patient had stent placed to the proximal middle branch of the RCA. * Continue with aspirin, clopidogrel and statin. * Troponins mildly elevated this may be demand ischemia but will continue to follow. 3. Diabetes mellitus type 2 * Not any medications at home. Patient be signed scale while he is here. * Check an A1c 4. Chronic kidney disease stage III: Monitor while the patient is on furosemide. 5. VTE prophylaxis: Moderate risk. Enoxaparin. 6. Advanced care planning: Discussed with the patient. Patient wishes to be DNR Comfort Care arrest and he is okay with intubation at this time. Inpatient E&M: 18044 Init Hosp L3
--- NOTE | 2019-11-08 12:50 | ECHOCS_ITS ---
Reason For Study: CHF Procedure This was a 2D Doppler, Color Flow transthoracic echocardiogram. Contrast injection was performed. The study was technically difficult. Exam performed portable in patient room. Left Ventricle Severely dilated left ventricle. The estimated ejection fraction is 25 %. There is severe global hypokinesis of the left ventricle. Mid-Inferior: Akinetic. Right Ventricle Normal RV size. ICD or pacer leads identified within the right ventricle. Normal systolic function. Atria The left atrium is moderately enlarged. Normal right atrium. Mitral Valve Normal mitral valve. Mild (1+) eccentric mitral valve insufficiency. Tricuspid Valve Normal tricuspid valve. Mild to moderate (1-2+) tricuspid valve insufficiency. Pulmonary artery systolic pressure is 35 mmHg. Aortic Valve Normal aortic valve. Trisinus/trileaflet aortic valve. Pulmonic Valve Normal pulmonic valve. Great Vessels Normal aortic root. The pulmonary artery is normal size. Normal inferior vena cava. Pericardium/Pleural No pericardial effusion. Medication Diluted definity 4ml given slow IV push to enhance endocardial definition. MMode/2D Measurements & Calculations LVIDd: 7.5 cm IVSd: 0.94 cm Ao root diam: 3.5 cm LVIDs: 6.1 cm LVPWd: 1.1 cm LA dimension: 4.7 cm RVDd: 3.8 cm FS: 18.8 % LAV(MOD-bp): 88.0 ml LVAd ap4: 57.9 cm2 SV(MOD-sp4): 76.5 ml LAV(MOD-bp) Indexed: 40.0 ml/m2 EDV(MOD-sp4): 265.0 ml LAV(MOD-sp2): 88.9 ml EDV(sp4-el): 275.9 ml LAV(MOD-sp4): 87.1 ml LVAs ap4: 45.9 cm2 ESV(MOD-sp4): 188.5 ml ESV(sp4-el): 192.8 ml EF(MOD-sp4): 28.9 % EF(sp4-el): 30.1 % SV(sp4-el): 83.1 ml LA A4 area: 27.2 cm2 RA A4 area: 19.9 cm2 Time Measurements MV dec time: 0.27 sec Doppler Measurements & Calculations MV E max tom: 79.8 cm/sec Lat Peak E' Tom: 5.2 cm/sec Med Peak E' Tom: 5.5 cm/sec MV A max tom: 95.8 cm/sec E/E' lat: 15.3 E/E' med: 14.5 MV E/A: 0.83 MV V2 max: 107.9 cm/sec MV P1/2t max tom: 87.6 cm/sec Ao V2 max: 156.4 cm/sec MV max P.7 mmHg MV P1/2t: 97.7 msec Ao max P.8 mmHg MV V2 mean: 72.0 cm/sec MV mean P.3 mmHg MV dec slope: 262.6 cm/sec2 MV V2 VTI: 34.5 cm MVA(P1/2t): 2.3 cm2 LV V1 max: 127.3 cm/sec PA V2 max: 118.5 cm/sec TR max tom: 278.6 cm/sec LV V1 max P.5 mmHg TR max P.1 mmHg Interpretation Summary Severely dilated left ventricle. The estimated ejection fraction is 25 %. There is severe global hypokinesis of the left ventricle. The left atrium is moderately enlarged. Mild (1+) eccentric mitral valve insufficiency. Pulmonary artery systolic pressure is 35 mmHg. Compared to prior study, there is no significant change. Contrast injection was performed. Compared to prior study, there is no significant change. Ordering Physician: Rigoberto Rosario Referring Physician: Eleuterio Abreu Chi Performed By: Ruddy Francisco RCS
[2019-11-08] MEDS: Clopidogrel Bisulfate 75 MG Tablet PO (13:27)
[2019-11-08] MEDS: Aspirin 81 MG TAB.CHEW PO (13:27)
[2019-11-08] MEDS: Isosorbide Mononitrate 30 MG Tablet PO (13:27)
[2019-11-08 13:45] LABS: Bedside Glucose 190 mg/dL (70-110)
[2019-11-08] MEDS: Insulin Lispro 100 UNIT/ML INSULN.PEN SC (16:14)
[2019-11-08 16:45] LABS: Bedside Glucose 236 mg/dL (70-110)
[2019-11-08] MEDS: 0.9% Saline Lock 10 ML Syringe IV (17:14)
[2019-11-08] MEDS: Enoxaparin 100 MG/ML Syringe SC (17:14)
[2019-11-08] MEDS: Carvedilol 6.25 MG Tablet PO (21:01)
[2019-11-08] MEDS: ICOSAPENT ETHYL 1 GM CAPSULE 2 GM PO (21:01)
[2019-11-08] MEDS: SACUBITRIL/VALSARTAN 97-103 MG TABLET 1 EACH PO (21:01)
[2019-11-09] VITALS (9 sets, daily range): BP systolic 114–139; BP diastolic 54–87; PULSE 55–87; RESP 16–20; TEMP 36.4–37; O2SAT 92–97
[2019-11-09 05:47] LABS: Absolute Lymphocyte Count 1.01 X10^3/uL (0.83-4.51); Absolute Neutrophil Count 9.1 X10^3/uL (2.0-7.7); Basophil# 0.02 X10^3/uL; Basophil% 0.2 % (0-1); Hematocrit 36.1 % (40-54); Hemoglobin 11.7 g/dL (13.0-16.5); Lymphocyte # 1.01 X10^3/ul (4.0); Lymphocyte % 8.9 % (19-41); Mean Corp Hgb Conc 32.4 g/dL (32-36); Mean Corpuscular Hgb 30.2 pg (27.0-32.0); Mean Platelet Vol. 10.4 fl (6.2-12.0); Monocyte% 10.6 % (0-10); NRBC Flagged by Analyzer 0 % (0-5); Neutrophil % 79.9 % (47-70); POSITIVE MORPHOLOGY YES; Platelet Count 220 K/mm3 (150-450); RBC Distribution Width CV 12.7 % (11.6-14.6); RBC Distribution Width SD 43.3 fl (35.1-43.9); Red Blood Count 3.88 M/mm3 (4.6-6.2); White Blood Count 11.4 K/mm3 (4.4-11.0)
--- NOTE | 2019-11-09 05:55 | EKG12_ITS ---
Test Reason : AM EKG Blood Pressure : / mmHG Vent. Rate : 065 BPM Atrial Rate : 065 BPM P-R Int : 202 ms QRS Dur : 110 ms QT Int : 456 ms P-R-T Axes : 037 001 157 degrees QTc Int : 474 ms Sinus rhythm with occasional Premature ventricular complexes and Fusion complexes Left ventricular hypertrophy with repolarization abnormality Abnormal ECG When compared with ECG of 08-NOV-2019 09:31, MANUAL COMPARISON REQUIRED, DATA IS UNCONFIRMED Confirmed by ZOILA RATLIFF, JERARDO ([id number]), research editor CELENA RADFORD ([id number]) on 11/10/2019 1:57:54 PM Referred By: FIORELLA Confirmed By:JERARDO CUMMINGS MD
[2019-11-09 06:15] LABS: Differential Indicated SCAN CRITERIA MET
[2019-11-09] MEDS: 0.9% Saline Lock 10 ML Syringe IV ×3 (06:22→17:20)
[2019-11-09 06:26] LABS: Anion Gap 7 (5-15); BUN 29 mg/dL (7-18); BUN/Creat Ratio 19.7 RATIO (10-20); Calcium,Total 8.4 mg/dL (8.5-10.1); Chloride 107 mmol/L (98-107); Creatinine, Serum 1.47 mg/dL (0.70-1.30); EST Glomerular Filtration Rate 51 mL/min (>60); Est Glom Filt Rate - Afr Amer 61 mL/min (>60); Estimated Creatinine Clearance 52.79 ml/min; Glucose 157 mg/dL (74-106); Sodium Level 140 mmol/L (136-145)
[2019-11-09 06:34] LABS: Differential Comment SCANNED
[2019-11-09 07:11] LABS: Bedside Glucose 145 mg/dL (70-110)
--- NOTE | 2019-11-09 08:47 | PCM.CONS.C ---
Problem List (1) Acute CHF (congestive heart failure) Status: Acute (2) Troponin I above reference range Status: Acute (3) Hypoxia Status: Acute (4) CKD (chronic kidney disease) stage 3, GFR 30-59 ml/min Status: Chronic (5) Type 2 diabetes mellitus Status: Chronic (6) Pure hypercholesterolemia Status: Chronic (7) Essential (primary) hypertension Status: Chronic (8) Automatic implantable cardiac defibrillator in situ Status: Chronic (9) Cardiomyopathy in other diseases classified elsewhere Status: Chronic Reason for Consult Date of Consultation: 11/09/19 Reason for Consultation: Acute on chronic systolic heart failure, non-STEMI, coronary disease, LV dysfunction, status post AICD placement. Hypertension, hypercholesterolemia, tobacco abuse, dietary noncompliance History of Present Illness: The patient is a 69 year old M, patient of Dr. Grullon, with a history of hypertension, diabetes, hyperlipidemia, current tobacco use with approximately 1 pack/day for the past 40 years, initial myocardial infarction approximately 8 years ago, ischemic cardiomyopathy status post AICD placement, status post recent angioplasty and drug-eluting stenting to his distal right coronary artery performed on 05/22/[address] Ga. This was done as the patient had about a years worth of fatigue, tiredness, and inability to thrive. Subsequent to his recent stent in May 2019 the patient felt much better. Apparently the patient had difficulty with his metformin around September 09, 2019, and out of concern for chronic renal insufficiency his metformin was discontinued as was his diuretic therapy. Patient has had dietary noncompliance since then eating fast foods such as [employer] and [employer] on a regular basis. The patient has had progressively worsening shortness of breath over the last week culminating in severe shortness of breath this past Saturday after he bent over to feed his cats. Patient sought medical attention [facility] ER where he was found to be in acute on chronic heart failure and given IV diuretic therapy. He now has a net negative fluid balance of 1300 cc, is able to lay down flat, and is doing much better. He denied any chest pain, angina, lower extremity edema but did admit to abdominal fullness over the last several weeks. He has had no subsequent catheterization since then. His EKG on admission showed normal sinus rhythm with PVC, LVH with repolarization abnormalities. His telemetry has shown normal sinus rhythm with rare PVCs. Peak troponin 0 0.210. [] Past Medical History Allergies/Adverse Reactions: Allergies FRANK Inhibitors Allergy (Verified 11/08/19 09:05) cough atorvastatin [From Lipitor] Allergy (Verified 11/08/19 09:05) myalgia gabapentin [From Neurontin] Allergy (Verified 11/08/19 09:05) numbness Penicillins Allergy (Verified 11/08/19 09:05) Hives Sulfa (Sulfonamide Antibiotics) Allergy (Verified 11/08/19 09:05) Hives Home Medications: Ambulatory Orders Medication Instructions Recorded Aspirin [Aspirin, Baby] 81 mg PO DAILY@0800 09/10/14 melatonin 3 mg tablet 3 mg PO HS PRN 09/01/18 nitroglycerin 0.4 mg sublingual 0.4 mg SUBLINGUAL Q5M PRN #25 tab 09/01/18 tablet clopidogrel 75 mg tablet 75 mg PO DAILY #90 tab 09/07/19 rosuvastatin 10 mg tablet 10 mg PO DAILY 09/22/19 sacubitril 24 mg-valsartan 26 mg 1 tab PO BID 09/22/19 tablet carvedilol 6.25 mg tablet 6.25 mg PO BID #180 tab 11/04/19 isosorbide mononitrate 30 mg 30 mg PO QDAY 90 Days #90 tab 11/04/19 tablet,extended release 24 hr Icosapent Ethyl [Vascepa] 2 cap PO BID 11/08/19 Sacubitril/Valsartan 97-103 mg 1 ea PO BID 11/08/19 [Entresto 97 mg-103 mg Tablet] Past Medical History (Chronic Problems): Chronic Problems (Last Reviewed 11/08/19 @ 11:[address] Rigoberto Rosario, DO) CKD (chronic kidney disease) stage 3, GFR 30-59 ml/min (Chronic) Type 2 diabetes mellitus (Chronic) Presence of stent in coronary artery (Chronic 05/22/19) PTCA/YUDY to LCX and PTCA/YUDY to mid and distal RCA 06/22/11; Successful PTCA/YUDY to proximal/mid PL branch of RCA with a 3.0 x 38 Promus Synergy, post dilated proximally with a 3.5 x 8 NC Balloon; 75%-->0%, no dissection. 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 Rigoberto Rosario, DO) Father Myocardial infarction, Onset Age: 70 CAD (coronary artery disease) Hx of CABG Mother CAD (coronary artery disease) Diabetes Pacemaker Brother Myocardial infarction Sister Myocardial infarction, Onset Age: 62 Rheumatic fever Son Hypertension Diabetes Daughter Diabetes Lives: Alone Smoking Status: Heavy Smoker (>10/day) Tobacco Use: Cigarettes Alcohol: Occasional Drugs: None Review of Systems - Review of Systems General: Denies: Fever, Night Sweats, Fatigue Cardiovascular: Reports: Shortness of Breath, Shortness of Breath at Rest, Shortness of Breath with Exertion. Denies: Chest Discomfort, Orthopnea, PND, Peripheral Edema, Palpitations, Lightheadedness, Dizziness, Near Syncope, Syncope Respiratory: Denies: Cough, Sputum Production, Hemoptysis Gastrointestinal: Denies: Hematemesis, Hematochezia, Melena Genitourinary: Denies: Dysuria, Hematuria Skin: Denies: Rash Subjectve: Patient laying down, no acute distress. His initial chest x-ray showed bilateral pulmonary edema. Objective: Vital Signs Temp Pulse Resp BP Pulse Ox 98.6 F 55 L 18 114/59 L 95 11/09/19 06:25 11/09/19 06:46 11/09/19 06:25 11/09/19 06:25 11/09/19 06:25 Oxygen Flow Rate (L/min) 2 Oxygen Delivery Method Nasal Cannula Weight: 207 lb 7.28 oz Body Mass Index (BMI) 28.5 Intake and Output for Last 24 Hours 11/07/19 11/08/19 11/09/19 23:59 23:59 23:59 Intake Total 780 / 780 0 / 0 Output Total 1875 / 1875 325 / 325 Balance -1095 / -1095 -325 / -325 General: Awake, Alert, Oriented x 3 HEENT: PERRL, EOMI, Sclera Non Icteric Neck: Supple, Good ROM, No Lymph Node Enlargement Lungs: Clear to auscultation Cardiovascular: Regular Rhythm, Normal S1, Normal S2, No Murmurs, No Rubs, No Gallops Vascular: No Carotid Bruits, Normal Femoral Pulses, Normal Radial Pulses, Normal Dorsalis Pedal Pulse, Normal Posterior Tibial Pulses Abdomen: Bowel Sounds Present, Soft, Non Tender, No HSM, No Organomegaly Extremities: No Cyanosis, No Clubbing, No edema Neurological: No Focal Motor or Sensory Deficit 11/08/19 09:28: WBC 11.8 H, RBC 4.01 L, Hgb 12.0 L, Hct 37.6 L, MCV 93.8, MCH 29.9, MCHC 31.9 L, Plt Count 192, MPV 10.4, Immature Gran % (Auto) 0.300, Neut % (Auto) 79.6 H, Lymph % (Auto) 9.0 L, [place] % (Auto) 8.8, Eos % (Auto) 2.0, Baso % (Auto) 0.3, Absolute Neuts (auto) 9.4 H, Nucleated RBC % 0 11/08/19 09:28: Sodium 142, Potassium 4.0, Chloride 112 H, Carbon Dioxide 24.0, Anion Gap 6, BUN 16, Creatinine 1.36 H, Est GFR (MDRD) Af Amer 67, Est GFR (MDRD) Non-Af 55 L, BUN/Creatinine Ratio 11.8, Glucose 196 H, Calcium 8.4 L, Troponin I 0.088 H 11/08/19 09:28: B-Natriuretic Peptide 2046.9 H 11/08/19 13:15: Troponin I 0.210 H 11/08/19 16:03: Troponin I 0.198 H 11/09/19 05:20: WBC 11.4 H, RBC 3.88 L, Hgb 11.7 L, Hct 36.1 L, MCV 93.0, MCH 30.2, MCHC 32.4, Plt Count 220, MPV 10.4, Immature Gran % (Auto) 0.400, Neut % (Auto) 79.9 H, Lymph % (Auto) 8.9 L, [place] % (Auto) 10.6 H, Eos % (Auto) 0.0, Baso % (Auto) 0.2, Absolute Neuts (auto) 9.1 H, Nucleated RBC % 0 11/09/19 05:20: Sodium 140, Potassium 4.0, Chloride 107, Carbon Dioxide 26.0, Anion Gap 7, BUN 29 H, Creatinine 1.47 H, Est GFR (MDRD) Af Amer 61, Est GFR (MDRD) Non-Af 51 L, BUN/Creatinine Ratio 19.7, Glucose 157 H, Calcium 8.4 L Rhythm: EKG: ECHO: 04/21/19: Severely dilated left ventricle. Moderate segmental systolic dysfunction (see wall motion). The estimated ejection fraction is 35 %. Paradoxical septal wall motion compatible with an IVCD and/or electronic ventricular pacemaker The left atrium is mildly enlarged. Mild-Moderate (1-2+) mitral valve insufficiency. Mild tricuspid valve insufficiency. Trivial pulmonic valve insufficiency. Right ventricular systolic pressure estimated to be 28 mmHg. No evidence for diastolic dysfunction. ICD or pacer leads identified within the right atrium ICD or pacer leads identified within the right ventricle. Stress Test: Cardiac Cath: PCI: CT Surgery: Holter monitor: EPS: PPM: CXR: Chest CT Scan: Assessment/Plan 1. Ischemic cardiomyopathy: The patient presents with acute on chronic congestive heart failure symptoms, most likely result of a combination of discontinuation of his diuretic therapy as well as dietary noncompliance with eating very salty foods from fast food restaurant such as [employer] and [employer] on a regular basis. I recommend the patient continue 1 more day of IV Lasix 40 mg twice daily so that he can reach his dry weight at which time I would recommend restarting his Lasix at at least 40 mg daily. He will also continue his Coreg, Entresto and Imdur. I recommend a 1500 cc fluid restriction as well. I also counseled the patient on avoiding fast food restaurants and high salt intake foods as this will contribute to congestive heart failure symptoms. 2. Coronary artery disease: I reviewed the patient's catheterization film from 05/22/2019, and had an excellent result of his angioplasty and drug-eluting stenting to his distal right coronary artery. In addition he had a tubular 50 to 60% small left circumflex stenosis which did not get addressed at that time. It is possible this is the source of the patient's non-STEMI although his diffuse diabetic coronary artery disease precludes identifying a particular region. My initial recommendation would be for the patient undergo a repeat catheterization to check his coronary stents as he is continued to smoke, as well as to assess whether the patient may benefit from additional intervention of his left circumflex system. I will defer this decision to Dr. Yoder's primary galley cook. In the meantime we will discontinue his Lovenox. 3. Tobacco abuse: I had a long and thorough discussion with the patient regarding his tobacco abuse, and strongly recommended he discontinue all tobacco products. 4. Hyperlipidemia: Continue Crestor. 5. Thank you very much for the opportunity to participate in the cardiac care of your patient. Consultation time took place between 8 AM and 8:30 AM. Inpatient E&M: 12241 Init Hosp L2
[2019-11-09] MEDS: Clopidogrel Bisulfate 75 MG Tablet PO (09:54)
[2019-11-09] MEDS: Aspirin 81 MG TAB.CHEW PO (09:54)
[2019-11-09] MEDS: Isosorbide Mononitrate 30 MG Tablet PO (09:54)
[2019-11-09] MEDS: ICOSAPENT ETHYL 1 GM CAPSULE 2 GM PO ×2 (09:54→21:17)
[2019-11-09] MEDS: Carvedilol 6.25 MG Tablet PO ×2 (09:54→21:17)
[2019-11-09] MEDS: SACUBITRIL/VALSARTAN 97-103 MG TABLET 1 EACH PO ×2 (09:54→21:18)
[2019-11-09] MEDS: Furosemide 40 MG/4 ML Vial IV ×2 (09:54→17:20)
[2019-11-09 11:10] LABS: Bedside Glucose 119 mg/dL (70-110)
--- NOTE | 2019-11-09 11:15 | PCM.PN.HOSP ---
Patient Problems: Active and Suspected Problems (Last Reviewed 11/08/19 @ 11:[address] Rigoberto Rosario, DO) Acute CHF (congestive heart failure) (Acute) Troponin I above reference range (Acute) Hypoxia (Acute) Subjective: Patient seen and examined. He was admitted with a complaint of shortness of breath and is been managed for acute heart failure. He has been diuresed with IV Lasix. Patient says shortness of breath is much better today. He admits to orthopnea and PND which have improved. Review of systems otherwise negative. Vitals/I&O's: Vital Signs Temp Pulse Resp BP Pulse Ox 98.6 F 55 L 18 114/59 L 95 11/09/19 06:25 11/09/19 06:46 11/09/19 06:25 11/09/19 06:25 11/09/19 06:25 Oxygen Flow Rate (L/min) 2 Oxygen Delivery Method Room Air Weight: 207 lb 7.28 oz Body Mass Index (BMI) 28.5 Intake and Output for Last 24 Hours 11/07/19 11/08/19 11/09/19 23:59 23:59 23:59 Intake Total 780 / 780 0 / 0 Output Total 1875 / 1875 325 / 325 Balance -1095 / -1095 -325 / -325 General: Alert, Oriented x3, Cooperative, No apparent distress HEENT: Atraumatic, PERRLA, EOMI, Normocephalic Oral: Moist Mucosa Neck: Supple, No JVD, Negative Carotid Bruits Lungs: - - mildly diminished breath sounds bibasally, no wheezes or crackles. Cardiovascular: Regular rate, Regular Rhythm, Normal S1, Normal S2, No murmurs Abdomen: Bowel Sounds Present, Soft, Non Tender, Non-Distended, No Hepato-splenomegaly Extremities: No clubbing, No cyanosis, No edema, Capillary Refill Less than 3 Seconds Skin: No rashes, No breakdown Musculoskeletal: No Tenderness to Palpation of Joints or Extremities Lymphatic: No Cervical, Supraclavicular, or Inguinal Adenopathy Neurological: Cranial nerves II-XII grossly intact, Neuro grossly intact, Motor Exam 5/5 strength throughout Psych/Mental Status: Normal Affect, Appropriate, Alert and oriented to time, place, person, mood and affect Microbiology Past 72 Hours 11/08/19 09:44 Mucosa - Nasopharyngeal Coronavirus COVID-19 PCR - Final Laboratory Results 11/08/19 13:15: Troponin I 0.210 H 11/08/19 13:39: POC Glucose 190 H 11/08/19 16:03: Troponin I 0.198 H 11/08/19 16:07: POC Glucose 236 H 11/09/19 05:20: WBC 11.4 H, RBC 3.88 L, Hgb 11.7 L, Hct 36.1 L, MCV 93.0, MCH 30.2, MCHC 32.4, RDW Std Deviation 43.3, RDW Coeff of Jane 12.7, Plt Count 220, MPV 10.4, Immature Gran % (Auto) 0.400, Neut % (Auto) 79.9 H, Lymph % (Auto) 8.9 L, [place] % (Auto) 10.6 H, Eos % (Auto) 0.0, Baso % (Auto) 0.2, Absolute Neuts (auto) 9.1 H, Absolute Lymphs (auto) 1.01, Nucleated RBC % 0, Differential Comment SCANNED 11/09/19 05:20: Sodium 140, Potassium 4.0, Chloride 107, Carbon Dioxide 26.0, Anion Gap 7, BUN 29 H, Creatinine 1.47 H, Estim Creat Clear Calc 52.79, Est GFR (MDRD) Af Amer 61, Est GFR (MDRD) Non-Af 51 L, BUN/Creatinine Ratio 19.7, Glucose 157 H, Calcium 8.4 L 11/09/19 05:20: Hemoglobin A1c Pending 11/09/19 07:04: POC Glucose 145 H 11/09/19 11:03: POC Glucose 119 H Diagnostic Data Chest X-Ray 11/08/19 09:13 IMPRESSION: Mild prominent interstitial markings noted throughout with underlying interstitial edema component not excluded. Electronically Signed: José Miguel Guan, at 9:56 EDT , Service support , Current Medications Acetaminophen (Tylenol) 650 mg PO Q6H PRN PRN PRN Reason: Pain Score 1-10/Temp > 100.7 F Aspirin (Aspirin, Baby) 81 mg PO DAILY@0800 ELYES Last Admin: 06/01/20 09:54 Dose: 81 mg Documented by: Carvedilol (Coreg) 6.25 mg PO BID [facility] Last Admin: 11/09/19 09:54 Dose: 6.25 mg Documented by: Clopidogrel Bisulfate (Plavix) 75 mg PO DAILY [facility] Last Admin: 11/09/19 09:54 Dose: 75 mg Documented by: Dextrose (D50w Syringe) 0 gm IV X1 PRN; Protocol PRN Reason: Hypoglycemia Furosemide (Lasix) 40 mg IV BID@1000,1800 [facility] Last Admin: 11/09/19 09:54 Dose: 40 mg Documented by: Glucagon () 1 mg IM .X1 PRN PRN Reason: Hypoglycemia Sodium Chloride () 500 mls @ 15 mls/hr IV PRN PRN PRN Reason: Blood Transfusion Sodium Chloride () 250 mls @ 15 mls/hr IV .[id number] PRN PRN Reason: Saline Flush Sodium Chloride () 250 mls @ 15 mls/hr IV .[id number] PRN PRN Reason: Additional IVPB Infusion Insulin Human Lispro (Humalog Kwikpen (Bkc)) 0 unit SC TIDAC [facility]; Protocol Last Admin: 11/09/19 07:04 Dose: Not Given Documented by: Isosorbide Mononitrate (Imdur) 30 mg PO DAILY [facility] Last Admin: 11/09/19 09:54 Dose: 30 mg Documented by: Melatonin (Melatonin) 3 mg PO QHS PRN PRN Reason: INSOMNIA Nitroglycerin (Nitrostat) 0.4 mg SUBLINGUAL Q5M PRN PRN Reason: CARDIAC/CHEST PAIN Ondansetron HCl (Zofran) 4 mg IV Q8H PRN PRN PRN Reason: NAUSEA/VOMITING Rosuvastatin Calcium (Crestor) 10 mg PO QHS [facility] Sacubitril/Valsartan (Entresto 97 Mg-103 Mg Tablet) 1 each PO BID [facility] Last Admin: 11/09/19 09:54 Dose: 1 each Documented by: Sodium Chloride () 10 - 40 ml IV UD PRN PRN Reason: SALINE FLUSH Last Admin: 11/09/19 09:54 Dose: 10 ml Documented by: Medical Necessity - Tobacco Use Smoking Status: Heavy Smoker (>10/day) Tobacco Use: Cigarettes Assessment/Plan All Active Problems (Last Reviewed 11/08/19 @ 11:[address] Rigoberto Rosario, DO) Acute CHF (congestive heart failure) (Acute) Troponin I above reference range (Acute) Hypoxia (Acute) 1. Acute exacerbation of HRrEF Known EF of 35% from 2D echo done in April 2019. Had been taken off his Lasix about 2 months ago by his PCP. IV Lasix 40mg twice daily. Also on Entresto and carvedilol. Monitor intake and output strictly. Fluid restrictions to 1500 cc daily. 2D echo: EF of 25%, with severely dilated LV with severe global hypokinesis of left ventricl and akinetic mid inferior wall. ICD/pacer leads in RV; RVSP of 35mmhg; no significant change since prior study cardiology on board 2. Elevated troponin initial troponin was 0.088 and this trended up to 0.2. has a history of stents as below 2D echo as under 1. cardiology on board. on aspirin, plavix, statin and carvedilol 3. CAD: s/p stent to proximal middle branch of RCA 2D echo on aspirin, plavix and statin as well as carvedilol 4. Type 2 diabetes mellitus A1C is pending. Not on any meds at home. ISS. accuchecks ACHS 5. CKD 3: Cr is 1.47; was 1.36 on admission. Will monitor DVT prophylaxis: lovenox Inpatient E&M: [id number] [facility] Hosp L3
--- NOTE | 2019-11-09 12:43 | CASEMGMT ---
XIOMY STINSON assessment: Face to Face with patient for initial transition planning/care coordination assessment. XIOMY STINSON introduced self and role at [facility], pt voices understanding and consents to assessment at this time. Pt is A/Ox4 at this time and answers all questions appropriately at this time. Pt is sitting up in bed in no distress at this time. Care providers, pharmacy, and demographics verified at this time. Presentation: Pt c/o increased SOB onset yesterday Admitting dx: CHF PCP: Brady Specialists: Paresh cardio Preferred Pharmacy: [facility] Insurance: [employer] A/B, 4Less Prescription Benefit: Yes Living Will/HPOA: Pt states does not have LW/HPOA and declines AD info at this time. LNOK: Tiffany Brown, daughter Living Arrangements: Pt states lives alone in 2 story home and states no concerns at home at this time. Pt states is independent with ADL's. Transportation: Pt states drives self and states no transportation concerns at this time. DME/HHC: Pt states has a bp cuff and glucometer. Pt states no need for any further DME at this time. Pt states no hx of HHC or SNF in the past. Pt states no concerns with going home at time of discharge. Pt is retired. Pt states states smokes 1-1.25packs/day and occasionally drinks ETOH. Pt states no further concerns/needs at this time. CM to follow for any further discharge planning/needs. Advised pt to ask for CM if any further questions/concerns/needs arise, voices understanding. Pt Goal: Home Plan: [place] XIOMY STINSON
[2019-11-09 13:38] LABS: Hemoglobin A1c 6.2 % (3.8-5.6)
[2019-11-09 16:45] LABS: Bedside Glucose 109 mg/dL (70-110)
[2019-11-09 21:26] LABS: Bedside Glucose 112 mg/dL (70-110)
[2019-11-10] VITALS (25 sets, daily range): BP systolic 105–145; BP diastolic 51–95; PULSE 55–83; RESP 12–20; TEMP 36.3–37.1; O2SAT 93–98
[2019-11-10 03:24] LABS: Absolute Neutrophil Count 6.6 X10^3/uL (2.0-7.7); Basophil# 0.02 X10^3/uL; Basophil% 0.2 % (0-1); Eosinophils% 0.9 % (0-5); Hemoglobin 12.5 g/dL (13.0-16.5); Lymphocyte % 26.3 % (19-41); Mean Corp Hgb Conc 32.1 g/dL (32-36); Mean Corpuscular Hgb 29.8 pg (27.0-32.0); Mean Corpuscular Volume 92.9 fL (80-94); Mean Platelet Vol. 10.3 fl (6.2-12.0); Monocyte# 1.15 X10^3/uL; Monocyte% 10.8 % (0-10); NRBC Flagged by Analyzer 0 % (0-5); Neutrophil # 6.55 X10^3/uL (2.7-7.7); Neutrophil % 61.5 % (47-70); Platelet Count 216 K/mm3 (150-450); RBC Distribution Width CV 12.8 % (11.6-14.6); RBC Distribution Width SD 43.6 fl (35.1-43.9); White Blood Count 10.7 K/mm3 (4.4-11.0)
[2019-11-10 03:30] LABS: Magnesium 2.1 mg/dL (1.6-2.6)
[2019-11-10 03:36] LABS: Anion Gap 8 (5-15); BUN 35 mg/dL (7-18); BUN/Creat Ratio 23.6 RATIO (10-20); Calcium,Total 8.4 mg/dL (8.5-10.1); Chloride 104 mmol/L (98-107); Creatinine, Serum 1.48 mg/dL (0.70-1.30); EST Glomerular Filtration Rate 50 mL/min (>60); Est Glom Filt Rate - Afr Amer 61 mL/min (>60); Estimated Creatinine Clearance 52.43 ml/min; Glucose 123 mg/dL (74-106); Potassium 3.7 mmol/L (3.5-5.1); Sodium Level 139 mmol/L (136-145)
[2019-11-10] MEDS: Isosorbide Mononitrate 30 MG Tablet PO (05:44)
[2019-11-10] MEDS: SACUBITRIL/VALSARTAN 97-103 MG TABLET 1 EACH PO ×2 (05:44→22:09)
[2019-11-10] MEDS: Carvedilol 6.25 MG Tablet PO ×2 (05:45→22:09)
[2019-11-10] MEDS: Clopidogrel Bisulfate 75 MG Tablet PO (05:46)
[2019-11-10] MEDS: Aspirin 81 MG TAB.CHEW PO (05:46)
[2019-11-10 06:55] LABS: Bedside Glucose 118 mg/dL (70-110)
--- NOTE | 2019-11-10 09:45 | CL.I_ITS ---
Patient Name: LAUREL DARLING Study Date: 11/10/2019 Performing: Usman Ga MD Ht: 72.04 inches 183 cm : 1950 Wt: 207.23 lbs 94 kg Age: 69 Gender: male BSA: 2.16 PROCEDURE(S) PERFORMED [id number] W OR WO PTCA, SINGLE CORONARY ARTERY CLINICAL PROFILE AND CO-MORBIDITIES Patient presents with NSTEMI for urgent cardiac cath Indications: Suspected CAD, Cardiomyopathy, Stable Known CAD, ACS > 24 hrs, Cardiomyopathy, LV Dy sfunction Heart Failure: NYHA Class: 3, Newly Diagnosed: No, Heart Failure Type: Systolic, NYHA Class: 2, N ewly Diagnosed: No, Heart Failure Type: Systolic Stress/Imaging Stress/Image Study Performed: No Stress/Image Study Performed: No Angina Classification Anginal Classification w/in 2 Weeks: CCS III CAD Presentations: Non-STEMI. Unstable angina. Non-STEMI. Symptom onset Date/Time: 11/08/2019 Time Not Available Comorbidities/Risk Factors: Hypertension Dyslipidemia Prior CHF Prior PCI CONCLUSIONS Successful PTCA/YUDY mid LCX with a 2.25 x 28 Promus Synergy, followed immediately downstream with a 2 .25 x 8 Promus Synergy; 75%-->0%, no dissection. Successful PTCA/YUDY of proximal LCX with a 2.5 x 8 Promus Synergy, post dilated with a 3.0 x 8 NC bal loon; 75%-->0%. no dissection. RECOMMENDATIONS Highly recommend quitting all tobacco products Follow up with primary wet process technician Risk factor modification ASA Indefinitley Plavix for at least 12 months Routine post interventional care Refer for Outpatient Cardiac Rehab Manual sheath removal per protocol Follow up with Dr. Yoder Successful Mynx Control closure of RFA. DESCRIPTION OF PROCEDURE The patient arrived to the procedure lab. The risks and benefits of the procedure as well as a full d escription of our services here and current unavailability of surgical backup were fully explained to the patient and/or their significant other prior to the catheterization. The Timeout was completed, verifying the correct patient and procedure. The patient's procedural site was prepped and draped in the usual fashion. Local anesthetic was given subcutaneously to right groin region with Lidocaine 2% Using a modified Seldinger technique,arterial access was obtained via the right femoral artery, a 4Fr sheath was inserted Left Coronary Artery selective angiography was performed in multiple views using a 4 Fr. JL4 catheter. Right Coronary Artery selective angiography was then performed in multiple vie ws using a 4 Fr. 3DRC catheter. LV to AO pullback pressures were then recorded.The images were review ed and options discussed. A decision was then made to proceed with an Intervention, IVUS or other adjunct procedure. Arterial sheath was exchanged for a 6 Fr Sheath. EBU 3.75 Guide catheter was inserted and engaged into the LCA. BMW Guide wire was advanced to the Circumflex. 2.0 x 12 Emerge Balloon catheter was ad vanced across lesion in the circumflex, mid. PTCA balloon inflated at 6 atms for 6 secs. PTCA balloon inflated at 6 atms for 7 secs. PTCA balloon inflated at 6 atms for 6 secs. PTCA balloon inflated at 6 atms for 14 secs. 2.25 x 28 Synergy Drug Eluting stent was advanced across the lesion in the circum flex, mid. Angiogram performed post stent deployment. 2.25 x 8 Synergy Drug Eluting stent was advance d across the lesion in the circumflex, mid. 2.5 x 8 Synergy Drug Eluting stent was advanced across th e lesion in the circumflex, proximal. 3.0 x 8 NC Emerge Balloon catheter was inserted post stent. Ang iogram performed post balloon dilatation. Contrast was injected through the sheath and the Right Jan c and Femoral artery were assessed for possible closure device. The arterial sheath was pulled and a Mynx closure device was deployed for hemostasis INTERVENTION INFORMATION LESION SITE: Circumflex (Mid) Lesion Complexity: High/C, lesion at bifurcation: No, thrombus present: No, lesion length: 36 mm, cul prit lesion: Yes, In-stent restenosis: No Pre Stenosis: 75 % Pre intervention VERA flow: 3 PROCEDURE: Drug Eluting Stent with pre and post dilatation Post Stenosis: 0 % Post intervention VERA flow: 3 Lesion Devices: Medtronic 6 Fr EBU3.75 100cm Guide Catheter Sellers .014 BMW [place] Straight 190cm Demetrio Sci EMERGE MR 2.00x12 BALLOON Demetrio Sci Synergy MR YUDY 2.25x28 Demetrio Sci Synergy MR YUDY 2.25x08 LESION SITE: Circumflex (Proximal) Lesion Complexity: Non-High/Non-C, lesion at bifurcation: No, thrombus present: No, lesion length: 8 mm, culprit lesion: No Pre Stenosis: 75 % Pre intervention VERA flow: 3 PROCEDURE: Drug Eluting Stent with pre and post dilatation Post Stenosis: 0 % Post intervention VERA flow: 3 Lesion Devices: Medtronic 6 Fr EBU3.75 100cm Guide Catheter Sellers .014 BMW [place] Straight 190cm Demetrio Sci EMERGE MR 2.00x12 BALLOON Demetrio Sci Synergy MR YUDY 2.50x08 Demetrio Sci NC EMERGE MR 3.00x08 BALLOON COMPLICATIONS No Complications PROCEDURE MEDICATIONS Versed 1 mg IV Oxygen: 2 L/min via nasal cannula Heparin 6000 unit(s) IV 11/10/2019 08:59:35 Nitro 200 mcg IC 11/10/2019 09:07:44 Nitro 200 mcg IC 11/10/2019 09:07:44 Nitro 200 mcg IC 11/10/2019 09:11:20 SUMMARY OF HEMODYNAMIC DATA Time AIR REST ECG 08:27:36 AO 102/71 (83) SA 08:37:04 LV 128/3, 18 08:44:44 LV 131/3, 17 08:44:51 LVp 130/-1, 22 08:44:58 AOp 129/65 (88) 08:45:03 Signed By Usman Ga MD On 11/10/2019 09:44:34 Usman Ga MD
--- NOTE | 2019-11-10 09:45 | EKG12_ITS ---
Test Reason : PCI Blood Pressure : / mmHG Vent. Rate : 060 BPM Atrial Rate : 060 BPM P-R Int : 188 ms QRS Dur : 108 ms QT Int : 478 ms P-R-T Axes : 021 007 130 degrees QTc Int : 478 ms Sinus rhythm with occasional Premature ventricular complexes Left ventricular hypertrophy with repolarization abnormality Abnormal ECG No previous ECGs available Confirmed by ABIMAEL SARGENT ([id number]), rewrite editor SANDRA MADDOX ([id number]) on 11/19/2019 7:55:47 AM Referred By: Pratik Yoder Confirmed By:ABIMAEL SARGENT
--- NOTE | 2019-11-10 10:21 | CRPHASE1_ITS ---
Patient Communication Former Patient:: Phase I - 05/22/2019 previous PCI intervention procedure, Phase II PHII Cardiac Rehab Discussed with Patient:: Yes Guide to Cardiac Rehab Given to Patient:: Yes Choice Program [facility] CR PHII:: Communication Given to CR, Refer to [facility] Refer Phase II Cardiac Rehab:: Yes Sessions:: 36 sessions - 3 days/wk, 12 weeks Risk Factors/Lifestyle Family History: Family History (Last Reviewed 11/08/19 @ 11:[address] Rigoberto Rosario, DO) Father Myocardial infarction, Onset Age: 70 CAD (coronary artery disease) Hx of CABG Mother CAD (coronary artery disease) Diabetes Pacemaker Brother Myocardial infarction Sister Myocardial infarction, Onset Age: 62 Rheumatic fever Son Hypertension Diabetes Daughter Diabetes Laboratory Values: Cardiac Rehab Phase I Labs Hemoglobin A1c 6.2 % (3.8-5.6) H 11/09/19 05:20 Cardiac Rehabilitation Info Cardiac Rehabilitation Program Information: Cardiac Rehabilitation is important for patients like you who are recovering from a heart problem. Cardiac rehabilitation programs are recognized as integral to the continued care of the patient with coronary heart disease. The cardiac rehabilitation program is designed to optimize a patient's physical, psychological, and social functioning. Health day care attendant work in cardiac rehabilitation programs and assist you with getting the treatments you need to get stronger and healthier - like exercise, healthy eating habits, and medications. Cardiac rehabilitation has been show to help people with heart problems live longer and have better life enjoyment than people who do not go to cardiac rehabilitation. Please contact the Cardiac Rehabilitation Program at [facility] at in two weeks if you have not heard from them.
--- NOTE | 2019-11-10 10:22 | CRPH1.INSTRU ---
General Education CAD and cardiac anatomy and function:: Patient communicates acknowledgment, Not instructed Explanation of diagnoses and procedures:: Patient communicates acknowledgment, Not instructed Sign/Symptoms of UT:: Patient communicates acknowledgment, Not instructed Antiplatelet therapy: Patient communicates acknowledgment, Not instructed Proper use of NTG-SL: Patient communicates acknowledgment, Not instructed Emergency procedures and activation of EMS: Patient communicates acknowledgment, Not instructed Compliance of all prescribed medications: Patient communicates acknowledgment, Not instructed - Patient previous CR patient. Was seen on 05/22/2019 following previous PCI intervention and was educated by CR staff.
[2019-11-10] MEDS: 0.9% Normal Saline 1,000 ML 150 ML IV (10:23)
[2019-11-10 10:35] LABS: Bedside Glucose 129 mg/dL (70-110)
[2019-11-10] MEDS: ICOSAPENT ETHYL 1 GM CAPSULE 2 GM PO ×2 (11:01→22:08)
[2019-11-10] MEDS: Furosemide 40 MG/4 ML Vial IV ×2 (11:02→17:15)
[2019-11-10 11:55] LABS: ACT Activated Clotting Time 186 sec (74-137)
--- NOTE | 2019-11-10 13:22 | PN_ITS ---
Patient Problems: Active and Suspected Problems (Last Reviewed 11/08/19 @ 11:[address] Rigoberto Rosario, DO) Acute CHF (congestive heart failure) (Acute) Troponin I above reference range (Acute) Hypoxia (Acute) Subjective: Patient seen and examined. He felt much better today and said his breathing was much better. He was off oxygen denied any chest pain, palpitations, dizziness, nausea vomiting or diarrhea. Review of systems otherwise negative. He is due for cardiac cath today. Vitals/I&O's: Vital Signs Temp Pulse Resp BP Pulse Ox 98.8 F 64 12 130/95 H 97 11/10/19 12:00 11/10/19 13:00 11/10/19 13:00 11/10/19 13:00 11/10/19 13:00 Oxygen Flow Rate (L/min) 2 Oxygen Delivery Method Room Air Weight: 207 lb 7.28 oz Body Mass Index (BMI) 28.5 Intake and Output for Last 24 Hours 11/08/19 11/09/19 11/10/19 23:59 23:59 23:59 Intake Total 780 / 780 1120 / 1120 220 / 220 Output Total 1875 / 1875 2275 / 2275 500 / 500 Balance -1095 / -1095 -1155 / -1155 -280 / -280 General: Alert, Oriented x3, Cooperative, No apparent distress HEENT: Atraumatic, PERRLA, EOMI, Normocephalic Oral: Moist Mucosa Neck: Supple, No JVD, Negative Carotid Bruits Lungs: - - mildly diminished breath sounds bibasally, no wheezes or crackles. Cardiovascular: Regular rate, Regular Rhythm, Normal S1, Normal S2, No murmurs Abdomen: Bowel Sounds Present, Soft, Non Tender, Non-Distended, No Hepato- splenomegaly Extremities: No clubbing, No cyanosis, No edema, Capillary Refill Less than 3 Seconds Skin: No rashes, No breakdown Musculoskeletal: No Tenderness to Palpation of Joints or Extremities Lymphatic: No Cervical, Supraclavicular, or Inguinal Adenopathy Neurological: Cranial nerves II-XII grossly intact, Neuro grossly intact, Motor Exam 5/5 strength throughout Psych/Mental Status: Normal Affect, Appropriate, Alert and oriented to time, place, person, mood and affect Microbiology Past 72 Hours 11/08/19 09:44 Mucosa - Nasopharyngeal Coronavirus COVID-19 PCR - Final Laboratory Results 11/09/19 05:20: Hemoglobin A1c 6.2 H 11/09/19 16:40: POC Glucose 109 11/09/19 21:14: POC Glucose 112 H 11/10/19 03:14: WBC 10.7, RBC 4.20 L, Hgb 12.5 L, Hct 39.0 L, MCV 92.9, MCH 29.8, MCHC 32.1, RDW Std Deviation 43.6, RDW Coeff of Jane 12.8, Plt Count 216, MPV 10.3, Immature Gran % (Auto) 0.300, Neut % (Auto) 61.5, Lymph % (Auto) 26.3, [place] % (Auto) 10.8 H, Eos % (Auto) 0.9, Baso % (Auto) 0.2, Absolute Neuts (auto) 6.6, Absolute Lymphs (auto) 2.80, Nucleated RBC % 0 11/10/19 03:14: Sodium 139, Potassium 3.7, Chloride 104, Carbon Dioxide 27.0, Anion Gap 8, BUN 35 H, Creatinine 1.48 H, Estim Creat Clear Calc 52.43, Est GFR (MDRD) Af Amer 61, Est GFR (MDRD) Non-Af 50 L, BUN/Creatinine Ratio 23.6 H, Glucose 123 H, Calcium 8.4 L 11/10/19 03:14: Magnesium 2.1 11/10/19 06:40: POC Glucose 118 H 11/10/19 09:29: Activated Clotting Time 186 H 11/10/19 10:29: POC Glucose 129 H Diagnostic Data Chest X-Ray 11/08/19 09:13 IMPRESSION: Mild prominent interstitial markings noted throughout with underlying interstitial edema component not excluded. Electronically Signed: José Miguel Guan DO at 9:56 EDT , Service support , Current Medications Acetaminophen (Tylenol) 650 mg PO Q6H PRN PRN PRN Reason: Pain Score 1-10/Temp > 100.7 F Aspirin (Aspirin, Baby) 81 mg PO DAILY@0800 ELYSE Last Admin: 11/10/19 05:46 Dose: 81 mg Documented by: Atropine Sulfate () 0.5 mg IV UD PRN PRN Reason: HR <50 bpm Carvedilol (Coreg) 6.25 mg PO BID [facility] Last Admin: 11/10/19 05:45 Dose: 6.25 mg Documented by: Clopidogrel Bisulfate (Plavix) 75 mg PO DAILY [facility] Last Admin: 11/10/19 05:46 Dose: 75 mg Documented by: Dextrose (D50w Syringe) 0 gm IV X1 PRN; Protocol PRN Reason: Hypoglycemia Furosemide (Lasix) 40 mg IV BID@1000,1800 [facility] Last Admin: 11/10/19 11:02 Dose: 40 mg Documented by: Glucagon () 1 mg IM .X1 PRN PRN Reason: Hypoglycemia Heparin Sodium (Beef Lung) (Heparin 500 Unit/5 Ml (100/Ml)) 500 unit IV UD PRN PRN Reason: HEPARIN FLUSH Sodium Chloride () 500 mls @ 15 mls/hr IV PRN PRN PRN Reason: Blood Transfusion Sodium Chloride () 250 mls @ 15 mls/hr IV .[id number] PRN PRN Reason: Saline Flush Sodium Chloride () 250 mls @ 15 mls/hr IV .[id number] PRN PRN Reason: Additional IVPB Infusion Sodium Chloride () 1,000 mls @ 0 mls/hr IV .Q0M ELYSE Sodium Chloride () 1,000 mls @ 150 mls/hr IV .Q6H40M [facility] Stop: 11/10/19 16:14 Last Admin: 11/10/19 10:23 Dose: 150 mls/hr Documented by: Insulin Human Lispro (Humalog Rodolfopen (Bkc)) 0 unit SC TIDAC [facility]; Protocol Last Admin: 11/10/19 10:31 Dose: Not Given Documented by: Isosorbide Mononitrate (Imdur) 30 mg PO DAILY [facility] Last Admin: 11/10/19 05:44 Dose: 30 mg Documented by: Labetalol HCl (Trandate) 5 mg IV X1 PRN PRN Reason: SBP > 160 when pulling sheath Stop: 11/12/19 09:36 Lorazepam (Ativan) 1 mg PO Q6H PRN PRN PRN Reason: BACK SPASMS/ANXIETY Melatonin (Melatonin) 3 mg PO QHS PRN PRN Reason: INSOMNIA Metoclopramide HCl (Reglan) 5 mg IV Q6H PRN PRN PRN Reason: NAUSEA/VOMITING Morphine Sulfate () 2 - 4 mg IV Q4H PRN PRN PRN Reason: Pain Score 1-10/10 Morphine Sulfate () 2 - 4 mg IV Q4H PRN PRN PRN Reason: Pain Score 1-10/10 Nitroglycerin (Nitrostat) 0.4 mg SUBLINGUAL Q5M PRN PRN Reason: CARDIAC/CHEST PAIN Ondansetron HCl (Zofran) 4 mg IV Q8H PRN PRN PRN Reason: NAUSEA/VOMITING Rosuvastatin Calcium (Crestor) 10 mg PO QHS [facility] Last Admin: 11/09/19 21:18 Dose: 10 mg Documented by: Sacubitril/Valsartan (Entresto 97 Mg-103 Mg Tablet) 1 each PO BID [facility] Last Admin: 11/10/19 05:44 Dose: 1 each Documented by: Sodium Chloride () 10 - 40 ml IV UD PRN PRN Reason: SALINE FLUSH Last Admin: 11/09/19 17:20 Dose: 10 ml Documented by: Sodium Chloride () 500 ml IV BOLUS PRN PRN Reason: VASO-VAGAL PROTOCOL STROKE Vital Signs/Narrative: Vital Signs Temp Pulse Resp BP Pulse Ox 11/10/19 13:00 64 12 130/95 H 97 11/10/19 12:00 98.8 F 64 15 130/95 H 97 11/10/19 11:30 62 15 127/89 H 96 11/10/19 11:00 68 16 115/79 96 11/10/19 10:45 63 18 145/86 H 96 11/10/19 10:30 57 L 19 H 145/86 H 98 11/10/19 10:15 58 L 17 142/51 H 96 11/10/19 10:00 57 L 16 135/83 H 96 11/10/19 09:58 56 L 11/10/19 09:50 98.8 F 60 16 134/81 H 96 Medical Necessity - Tobacco Use Smoking Status: Heavy Smoker (>10/day) Tobacco Use: Cigarettes Assessment/Plan All Active Problems (Last Reviewed 11/08/19 @ 11:[address] Rigoberto Rosario DO) Acute CHF (congestive heart failure) (Acute) Troponin I above reference range (Acute) Hypoxia (Acute) 1. Acute exacerbation of HRrEF * feels much better today. on room air now * on IV lasix 40mg bid, entresto and carvedilol * Monitor intake and output strictly. Fluid restrictions to 1500 cc daily. * 2D echo: EF of 25%, with severely dilated LV with severe global hypokinesis of left ventricl and akinetic mid inferior wall. ICD/pacer leads in RV; RVSP of 35mmhg; no significant change since prior study * cardiology on board * 2. Nonstemi * initial troponin was 0.088 and this trended up to 0.2. * 2D echo as under 1. * cardiology on board. on aspirin, plavix, statin and carvedilol * Had cardiac cath today with successful PTCA and drug-eluting stent placement in the mid left circumflex artery in the proximal left circumflex artery. * Patient counseled to quit all backup products and is to be on aspirin and Plavix as well as statin. and imdur * 3. CAD: * s/p stent to proximal middle branch of RCA * 2D echo as under 1 and 2. had 2 new stents placed today as under 2. * on aspirin, plavix and statin as well as carvedilol and imdur 4. Type 2 diabetes mellitus * A1C is 6.2. Not on any meds at home and is diet controlled. * ISS. accuchecks ACHS 5. CKD 3: Cr is 1.48; was 1.36 on admission. Will monitor DVT prophylaxis: lovenox Inpatient E&M: [id number] [facility] L3
[2019-11-10 16:00] LABS: Bedside Glucose 120 mg/dL (70-110)
--- NOTE | 2019-11-10 17:25 | CL.D_ITS ---
Patient Name: LAUREL DARLING Study Date: 11/10/2019 Performing: Pratik Yoder MD Ht: 72 inches 183 cm : 1950 Wt: 207.5 lbs 94 kg Age: 69 Gender: male BSA: 2.16 PROCEDURE(S) PERFORMED [id number] W OR WO PTCA, SINGLE CORONARY ARTERY CLINICAL PROFILE AND INDICATIONS Patient presents with NSTEMI for urgent cardiac cath Indications: Suspected CAD, Cardiomyopathy, Stable Known CAD, ACS > 24 hrs, Cardiomyopathy, LV Dy sfunction Heart Failure: NYHA Class: 3, Newly Diagnosed: No, Heart Failure Type: Systolic, NYHA Class: 2, N ewly Diagnosed: No, Heart Failure Type: Systolic Stress/Imaging Stress/Image Study Performed: No Stress/Image Study Performed: No Angina Classification Anginal Classification w/in 2 Weeks: CCS III CAD Presentations: Non-STEMI. Unstable angina. Non-STEMI. Symptom onset Date/Time: 11/08/2019 Time Not Available Comorbidities/Risk Factors: Hypertension Dyslipidemia Prior CHF Prior PCI CONCLUSIONS Elevated Left Ventricular End Diastolic Pressure [place] Multivessel CAD RECOMMENDATIONS Risk factor modification Medical therapy Referred for immediate PCI DESCRIPTION OF PROCEDURE The patient arrived to the procedure lab. The risks and benefits of the procedure as well as a full d escription of our services here and current unavailability of surgical backup were fully explained to the patient and/or their significant other prior to the catheterization. The Timeout was completed, verifying the correct patient and procedure. The patient's procedural site was prepped and draped in the usual fashion. Local anesthetic was given subcutaneously to right groin region with Lidocaine 2%. Using a modified Seldinger technique, arterial access was obtained via the right femoral artery, a 4 Fr sheath was inserted Left Coronary Artery selective angiography was performed in multiple views us ing a 4 Fr. JL4 catheter. Right Coronary Artery selective angiography was then performed in multiple views using a 4 Fr. 3DRC catheter. LV to AO pullback pressures were then recorded.Contrast was inject ed through the sheath and the Right Iliac and Femoral artery were assessed for possible closure device.The arterial sheath was pulled and a Mynx closure device was deployed for hemostasis CORONARY ANGIOGRAPHY DOMINANCE: Right Dominant LEFT HEART ASSESSMENT Left Ventricular Ejection Fraction: Not assessed Elevated Left Ventricular End Diastolic Pressure LVEDP: 17 mmHg LEFT MAIN: Mild luminal irregularities LEFT ANTERIOR DESCENDING ARTERY: PROX LAD: Mild calcification, Mild luminal irregularities, eccentric: 25 % Stenosis CIRCUMFLEX ARTERY: PROX CIRC: hazy: 50 % Stenosis, Previously placed stent is patent MID CIRC: 75 % Stenosis RIGHT CORONARY ARTERY: PROX RCA: diffuse: ectatic: aneurysmal: 25 % Stenosis MID RCA: Previously placed stent is patent DISTAL RCA: Previously placed stent is patent RT PDA: Proximal - 25 % Stenosis, Mid - 25 % Stenosis RIGHT AV SEGMENT: Previously placed stent is patent COMPLICATIONS No Complications PROCEDURE MEDICATIONS Versed 1 mg IV Oxygen: 2 L/min via nasal cannula Heparin 6000 unit(s) IV 11/10/2019 08:59:35 Nitro 200 mcg IC 11/10/2019 09:07:44 Nitro 200 mcg IC 11/10/2019 09:07:44 Nitro 200 mcg IC 11/10/2019 09:11:20 SUMMARY OF HEMODYNAMIC DATA Time AIR REST ECG 08:27:36 AO 102/71 (83) SA 08:37:04 LV 128/3, 18 08:44:44 LV 131/3, 17 08:44:51 LVp 130/-1, 22 08:44:58 AOp 129/65 (88) 08:45:03 Signed By Pratik Yoder MD On 11/10/2019 17:25:09 Pratik Yoder MD
--- NOTE | 2019-11-10 17:34 | PCM.PN.CARD ---
Subjectve: The patient is status post diagnostic cardiac catheterization and subsequent LCx PCI/stent. He appears to be resting comfortably at this time. He has no new acute complaints. Objective: Vital Signs Temp Pulse Resp BP Pulse Ox 98.8 F 63 12 130/95 H 94 11/10/19 12:00 11/10/19 15:29 11/10/19 13:00 11/10/19 13:00 11/10/19 13:45 Oxygen Flow Rate (L/min) 2 Oxygen Delivery Method Room Air Weight: 207 lb 7.28 oz Body Mass Index (BMI) 28.5 Intake and Output for Last 24 Hours 11/08/19 11/09/19 11/10/19 23:59 23:59 23:59 Intake Total 780 / 780 1120 / 1120 1192.5 / 1192.5 Output Total 1875 / 1875 2275 / 2275 500 / 500 Balance -1095 / -1095 -1155 / -1155 692.5 / 692.5 General: Awake, Alert, Oriented x 3, Cooperative, No Acute Distress HEENT: Atraumatic, Normocephalic, PERRL, EOMI, Sclera Non Icteric Oral: Moist Mucosa Neck: Supple, Good ROM, No JVD Lungs: Clear to auscultation Cardiovascular: Regular Rhythm, Normal S1, Normal S2 Vascular: Normal Femoral Pulses Abdomen: Bowel Sounds Present, Soft, Non Tender Neurological: No Focal Motor or Sensory Deficit Psych/Mental Status: Appropriate 11/10/19 03:14: WBC 10.7, RBC 4.20 L, Hgb 12.5 L, Hct 39.0 L, MCV 92.9, MCH 29.8, MCHC 32.1, Plt Count 216, MPV 10.3, Immature Gran % (Auto) 0.300, Neut % (Auto) 61.5, Lymph % (Auto) 26.3, Gonzales % (Auto) 10.8 H, Eos % (Auto) 0.9, Baso % (Auto) 0.2, Absolute Neuts (auto) 6.6, Nucleated RBC % 0 11/10/19 03:14: Sodium 139, Potassium 3.7, Chloride 104, Carbon Dioxide 27.0, Anion Gap 8, BUN 35 H, Creatinine 1.48 H, Est GFR (MDRD) Af Amer 61, Est GFR (MDRD) Non-Af 50 L, BUN/Creatinine Ratio 23.6 H, Glucose 123 H, Calcium 8.4 L 11/10/19 03:14: Magnesium 2.1 Rhythm: Sinus rhythm Cardiac Cath: CORONARY ANGIOGRAPHY DOMINANCE: Right Dominant LEFT HEART ASSESSMENT Left Ventricular Ejection Fraction: Not assessed Elevated Left Ventricular End Diastolic Pressure LVEDP: 17 mmHg LEFT MAIN: Mild luminal irregularities LEFT ANTERIOR DESCENDING ARTERY: PROX LAD: Mild calcification, Mild luminal irregularities, eccentric: 25 % Stenosis CIRCUMFLEX ARTERY: PROX CIRC: hazy: 50 % Stenosis, Previously placed stent is patent MID CIRC: 75 % Stenosis RIGHT CORONARY ARTERY: PROX RCA: diffuse: ectatic: aneurysmal: 25 % Stenosis MID RCA: Previously placed stent is patent DISTAL RCA: Previously placed stent is patent RT PDA: Proximal - 25 % Stenosis, Mid - 25 % Stenosis RIGHT AV SEGMENT: Previously placed stent is patent PCI: CONCLUSIONS Successful PTCA/YUDY mid LCX with a 2.25 x 28 Promus Synergy, followed immediately downstream with a 2.25 x 8 Promus Synergy; 75%-->0%, no dissection. Successful PTCA/YUDY of proximal LCX with a 2.5 x 8 Promus Synergy, post dilated with a 3.0 x 8 NC balloon; 75%-->0%. no dissection. Medical Necessity - Tobacco Use Smoking Status: Heavy Smoker (>10/day) Tobacco Use: Cigarettes Assessment/Plan 1. CAD status post PCI The patient does have underlying CAD. He is undergone previous and now additional PCI. Hopefully this will help with respect to his overall left ventricular wall motion systolic function. He will continue medical therapy as deemed appropriate. 2. Cardiomyopathy The patient does have a cardiomyopathy. His cardiomyopathy may be compatible with a combination of both CAD related and non-CAD related. He will continue medical therapy. 3. CHF: Acute on chronic systolic mediated The patient has had recurrent acute on chronic systolic mediated CHF. This may be secondary to his recent discontinuation of diuretic therapy and increased salty intake. Based upon the patient's cardiac enzymes he underwent evaluation with diagnostic cardiac catheterization. There was concern about coronary artery disease contributing to his overall clinical course. Thus he subsequently underwent PCI as noted above. 4. ICD The patient does have an ICD in place. He will continue to be followed. 5. Hyperlipidemia He will continue medical management. 6. Hypertension The patient's blood pressure will be followed and his medications adjusted accordingly. This note was generated using a voice recognition system and there may be incorrect words, spelling or punctuation that were not noted when reviewing the office note prior to saving.
[2019-11-10 22:21] LABS: Bedside Glucose 109 mg/dL (70-110)
[2019-11-11] VITALS (19 sets, daily range): BP systolic 92–131; BP diastolic 57–86; PULSE 60–111; RESP 15–22; TEMP 36.4–37; O2SAT 92–97
--- NOTE | 2019-11-11 00:45 | NURSING ---
Report given to Mandy Tai rn. Mandy, assuming pt care at this time.
[2019-11-11 05:25] LABS: Hematocrit 41.5 % (40-54); Hemoglobin 13.5 g/dL (13.0-16.5); Mean Corp Hgb Conc 32.5 g/dL (32-36); Mean Corpuscular Hgb 29.5 pg (27.0-32.0); Mean Corpuscular Volume 90.6 fL (80-94); Mean Platelet Vol. 10.3 fl (6.2-12.0); Platelet Count 250 K/mm3 (150-450); RBC Distribution Width CV 12.8 % (11.6-14.6); Red Blood Count 4.58 M/mm3 (4.6-6.2); White Blood Count 14.6 K/mm3 (4.4-11.0)
[2019-11-11 05:42] LABS: ALB/GLOB Ratio 1.1 RATIO (0.9-2.4); AST(SGOT) 7 U/L (15-37); Alanine Aminotransfer ALT/SGPT 19 U/L (16-61); Albumin, Serum 3.5 g/dL (3.2-5.0); Alkaline Phosphatase 59 U/L (45-117); Anion Gap 9 (5-15); BUN 41 mg/dL (7-18); BUN/Creat Ratio 27.9 RATIO (10-20); Calcium,Total 8.5 mg/dL (8.5-10.1); Chloride 104 mmol/L (98-107); Creatinine, Serum 1.47 mg/dL (0.70-1.30); EST Glomerular Filtration Rate 51 mL/min (>60); Est Glom Filt Rate - Afr Amer 61 mL/min (>60); Estimated Creatinine Clearance 52.79 ml/min; Globulin 3.2 g/dL (2.2-4.2); Glucose 141 mg/dL (74-106); Potassium 3.5 mmol/L (3.5-5.1); Protein, Total 6.7 g/dL (6.4-8.2); Sodium Level 140 mmol/L (136-145)
[2019-11-11] MEDS: Carvedilol 6.25 MG Tablet PO ×2 (08:30→21:57)
[2019-11-11] MEDS: Clopidogrel Bisulfate 75 MG Tablet PO (08:30)
[2019-11-11] MEDS: Aspirin 81 MG TAB.CHEW PO (08:30)
[2019-11-11] MEDS: Isosorbide Mononitrate 30 MG Tablet PO (08:31)
[2019-11-11] MEDS: SACUBITRIL/VALSARTAN 97-103 MG TABLET 1 EACH PO ×2 (08:31→21:57)
[2019-11-11] MEDS: 0.9% Saline Lock 10 ML Syringe IV (08:35)
[2019-11-11] MEDS: Furosemide 40 MG/4 ML Vial IV (08:35)
[2019-11-11 08:45] LABS: Bedside Glucose 142 mg/dL (70-110)
--- NOTE | 2019-11-11 09:45 | EKG12_ITS ---
Test Reason : AM Blood Pressure : / mmHG Vent. Rate : 072 BPM Atrial Rate : 072 BPM P-R Int : 186 ms QRS Dur : 172 ms QT Int : 488 ms P-R-T Axes : 013 -14 130 degrees QTc Int : 534 ms Normal sinus rhythm Left bundle branch block Abnormal ECG When compared with ECG of 09-NOV-2019 07:04, Fusion complexes are no longer Present Premature ventricular complexes are no longer Present Left bundle branch block is now Present Confirmed by ABIMAEL SARGENT ([id number]), general expeditor SANDRA MADDOX ([id number]) on 11/19/2019 7:57:03 AM Referred By: [facility] Confirmed By:ABIMAEL SARGENT
--- NOTE | 2019-11-11 10:07 | PN.CARD_ITS ---
Subjectve: The patient is awake and alert. He denies ongoing chest discomfort. He has had no issues with acute shortness of breath or dyspnea. He does have chronic shortness of breath/dyspnea. Objective: Vital Signs Temp Pulse Resp BP Pulse Ox 97.9 F 72 15 110/62 92 11/11/19 04:00 11/11/19 06:00 11/11/19 06:00 11/11/19 06:00 11/11/19 08:30 Oxygen Flow Rate (L/min) 2 Oxygen Delivery Method Room Air Weight: 207 lb 7.28 oz Body Mass Index (BMI) 28.5 Intake and Output for Last 24 Hours 11/09/19 11/10/19 11/11/19 23:59 23:59 23:59 Intake Total 1120 / 1120 1682.5 / 1682.5 Output Total 2275 / 2275 1950 / 1950 350 / 350 Balance -1155 / -1155 -267.5 / -267.5 -350 / -350 General: Awake, Alert, Oriented x 3, Cooperative, No Acute Distress HEENT: Atraumatic, Normocephalic, PERRL, EOMI, Sclera Non Icteric Oral: Moist Mucosa Neck: Supple, Good ROM, No JVD Lungs: Rhonchi Cardiovascular: Regular Rhythm, Normal S1, Normal S2 Vascular: Normal Femoral Pulses Abdomen: Bowel Sounds Present, Soft, Non Tender Extremities: No edema Neurological: No Focal Motor or Sensory Deficit Psych/Mental Status: Appropriate 11/11/19 05:05: WBC 14.6 H, RBC 4.58 L, Hgb 13.5, Hct 41.5, MCV 90.6, MCH 29.5, MCHC 32.5, Plt Count 250, MPV 10.3 11/11/19 05:05: Sodium 140, Potassium 3.5, Chloride 104, Carbon Dioxide 27.0, Anion Gap 9, BUN 41 H, Creatinine 1.47 H, Est GFR (MDRD) Af Amer 61, Est GFR (MDRD) Non-Af 51 L, BUN/Creatinine Ratio 27.9 H, Glucose 141 H, Calcium 8.5, Total Bilirubin 0.40 Rhythm: Sinus rhythm; left bundle branch block pattern Medical Necessity - Tobacco Use Smoking Status: Heavy Smoker (>10/day) Tobacco Use: Cigarettes Assessment/Plan 1. CAD status post PCI The patient does have underlying CAD. He is undergone previous and now additional PCI. Hopefully this will help with respect to his overall left ventricular wall motion systolic function. He will continue medical therapy as deemed appropriate. 2. Cardiomyopathy The patient does have a cardiomyopathy. His cardiomyopathy may be compatible with a combination of both CAD related and non-CAD related. He will continue medical therapy. 3. CHF: Acute on chronic systolic mediated The patient has had recurrent acute on chronic systolic mediated CHF. This may be secondary to his recent discontinuation of diuretic therapy and increased salty intake. Based upon the patient's cardiac enzymes he underwent evaluation with diagnostic cardiac catheterization. There was concern about coronary artery disease contributing to his overall clinical course. Thus he subsequently underwent PCI as noted above. The present time he will continue medical management. This will include al tering his IV diuretics to oral diuretics. He will be followed for any significant relapse with respect to his volume overload. He will be asked to be up and ambulating. His O2 status will be monitored as to whether or not he needs subsequent O2 therapy. 4. ICD He does have a finding of a left bundle branch block. Based upon his monitor and electrocardiographic reports this may be a rate related left bundle branch block. The patient does have an ICD in place. He will continue to be followed. 5. Hyperlipidemia He will continue medical management. 6. Hypertension The patient's blood pressure will be followed and his medications adjusted accordingly. Comment: The aforementioned information was conveyed to Dr. Chen. This note was generated using a voice recognition system and there may be incorrect words, spelling or punctuation that were not noted when reviewing the office note prior to saving.
[2019-11-11] MEDS: ICOSAPENT ETHYL 1 GM CAPSULE 2 GM PO ×2 (10:50→21:57)
--- NOTE | 2019-11-11 10:58 | PCM.PN.HOSP ---
Patient Problems: Active and Suspected Problems (Last Updated 11/10/19 @ 17:50 by Aleyda Paz) Acute CHF (congestive heart failure) (Acute) Troponin I above reference range (Acute) Hypoxia (Acute) Subjective: Seen and examined. He has no complaints this morning and feels well. Review of symptoms otherwise negative. Cardiac cath yesterday with 3 stents placed to the circumflex artery. He has remained hemodynamically stable. Labs and vitals reviewed. Vitals/I&O's: Vital Signs Temp Pulse Resp BP Pulse Ox 97.9 F 72 15 110/62 92 11/11/19 04:00 11/11/19 06:00 11/11/19 06:00 11/11/19 06:00 11/11/19 08:30 Oxygen Flow Rate (L/min) 2 Oxygen Delivery Method Room Air Weight: 207 lb 7.28 oz Body Mass Index (BMI) 28.5 Intake and Output for Last 24 Hours 11/09/19 11/10/19 11/11/19 23:59 23:59 23:59 Intake Total 1120 / 1120 1682.5 / 1682.5 Output Total 2275 / 2275 1950 / 1950 350 / 350 Balance -1155 / -1155 -267.5 / -267.5 -350 / -350 General: Alert, Oriented x3, Cooperative, No apparent distress HEENT: Atraumatic, PERRLA, EOMI, Normocephalic Oral: Moist Mucosa Neck: Supple, No JVD, Negative Carotid Bruits Lungs: - - mildly diminished breath sounds bibasally, no wheezes or crackles. Cardiovascular: Regular rate, Regular Rhythm, Normal S1, Normal S2, No murmurs Abdomen: Bowel Sounds Present, Soft, Non Tender, Non-Distended, No Hepato-splenomegaly Extremities: No clubbing, No cyanosis, No edema, Capillary Refill Less than 3 Seconds Skin: No rashes, No breakdown; right groin cath site is clean and dry; no evidence of bleeding, swelling or redness Musculoskeletal: No Tenderness to Palpation of Joints or Extremities Lymphatic: No Cervical, Supraclavicular, or Inguinal Adenopathy Neurological: Cranial nerves II-XII grossly intact, Neuro grossly intact, Motor Exam 5/5 strength throughout Psych/Mental Status: Normal Affect, Appropriate, Alert and oriented to time, place, person, mood and affect Microbiology Past 72 Hours 11/08/19 09:44 Mucosa - Nasopharyngeal Coronavirus COVID-19 PCR - Final Laboratory Results 11/10/19 09:29: Activated Clotting Time 186 H 11/10/19 15:54: POC Glucose 120 H 11/10/19 22:08: POC Glucose 109 11/11/19 05:05: WBC 14.6 H, RBC 4.58 L, Hgb 13.5, Hct 41.5, MCV 90.6, MCH 29.5, MCHC 32.5, RDW Std Deviation 42.0, RDW Coeff of Jane 12.8, Plt Count 250, MPV 10.3 11/11/19 05:05: Sodium 140, Potassium 3.5, Chloride 104, Carbon Dioxide 27.0, Anion Gap 9, BUN 41 H, Creatinine 1.47 H, Estim Creat Clear Calc 52.79, Est GFR (MDRD) Af Amer 61, Est GFR (MDRD) Non-Af 51 L, BUN/Creatinine Ratio 27.9 H, Glucose 141 H, Calcium 8.5, Total Bilirubin 0.40, AST 7 L, ALT 19, Alkaline Phosphatase 59, Total Protein 6.7, Albumin 3.5, Globulin 3.2, Albumin/Globulin Ratio 1.1 11/11/19 08:26: POC Glucose 142 H Diagnostic Data Chest X-Ray 11/08/19 09:13 IMPRESSION: Mild prominent interstitial markings noted throughout with underlying interstitial edema component not excluded. Electronically Signed: José Miguel Guan DO at 9:56 EDT , Service support , Current Medications Acetaminophen (Tylenol) 650 mg PO Q6H PRN PRN PRN Reason: Pain Score 1-10/Temp > 100.7 F Aspirin (Aspirin, Baby) 81 mg PO DAILY@0800 [facility] Last Admin: 11/11/19 08:30 Dose: 81 mg Documented by: Atropine Sulfate () 0.5 mg IV UD PRN PRN Reason: HR <50 bpm Carvedilol (Coreg) 6.25 mg PO BID [facility] Last Admin: 11/11/19 08:30 Dose: 6.25 mg Documented by: Clopidogrel Bisulfate (Plavix) 75 mg PO DAILY [facility] Last Admin: 11/11/19 08:30 Dose: 75 mg Documented by: Dextrose (D50w Syringe) 0 gm IV X1 PRN; Protocol PRN Reason: Hypoglycemia Furosemide (Lasix) 40 mg PO BID@1000,1800 [facility] Glucagon () 1 mg IM .X1 PRN PRN Reason: Hypoglycemia Heparin Sodium (Beef Lung) (Heparin 500 Unit/5 Ml (100/Ml)) 500 unit IV UD PRN PRN Reason: HEPARIN FLUSH Sodium Chloride () 500 mls @ 15 mls/hr IV PRN PRN PRN Reason: Blood Transfusion Sodium Chloride () 250 mls @ 15 mls/hr IV .[id number] PRN PRN Reason: Saline Flush Sodium Chloride () 250 mls @ 15 mls/hr IV .[id number] PRN PRN Reason: Additional IVPB Infusion Sodium Chloride () 1,000 mls @ 0 mls/hr IV .Q0M [facility] Insulin Human Lispro (Humalog Kwikpen (Bkc)) 0 unit SC TIDAC [facility]; Protocol Last Admin: 11/11/19 08:28 Dose: Not Given Documented by: Isosorbide Mononitrate (Imdur) 30 mg PO DAILY [facility] Last Admin: 11/11/19 08:31 Dose: 30 mg Documented by: Labetalol HCl (Trandate) 5 mg IV X1 PRN PRN Reason: SBP > 160 when pulling sheath Stop: 11/12/19 09:36 Lorazepam (Ativan) 1 mg PO Q6H PRN PRN PRN Reason: BACK SPASMS/ANXIETY Melatonin (Melatonin) 3 mg PO QHS PRN PRN Reason: INSOMNIA Metoclopramide HCl (Reglan) 5 mg IV Q6H PRN PRN PRN Reason: NAUSEA/VOMITING Morphine Sulfate () 2 - 4 mg IV Q4H PRN PRN PRN Reason: Pain Score 1-10/10 Morphine Sulfate () 2 - 4 mg IV Q4H PRN PRN PRN Reason: Pain Score 1-10/10 Nitroglycerin (Nitrostat) 0.4 mg SUBLINGUAL Q5M PRN PRN Reason: CARDIAC/CHEST PAIN Ondansetron HCl (Zofran) 4 mg IV Q8H PRN PRN PRN Reason: NAUSEA/VOMITING Rosuvastatin Calcium (Crestor) 10 mg PO QHS [facility] Last Admin: 11/10/19 22:09 Dose: 10 mg Documented by: Sacubitril/Valsartan (Entresto 97 Mg-103 Mg Tablet) 1 each PO BID [facility] Last Admin: 11/11/19 08:31 Dose: 1 each Documented by: Sodium Chloride () 10 - 40 ml IV UD PRN PRN Reason: SALINE FLUSH Last Admin: 11/11/19 08:35 Dose: 10 ml Documented by: Sodium Chloride () 500 ml IV BOLUS PRN PRN Reason: VASO-VAGAL PROTOCOL STROKE Vital Signs/Narrative: Vital Signs Pulse Ox 11/11/19 08:30 92 11/11/19 07:00 96 Medical Necessity - Tobacco Use Smoking Status: Heavy Smoker (>10/day) Tobacco Use: Cigarettes Assessment/Plan All Active Problems (Last Updated 11/10/19 @ 17:50 by Aleyda Paz) Acute CHF (congestive heart failure) (Acute) Troponin I above reference range (Acute) Hypoxia (Acute) 1. Acute exacerbation of HRrEF josh 2L of oxygen will switch IV lasix to 40mg bid; continue Entresto and carvedilol Monitor intake and output strictly. Fluid restrictions to 1500 cc daily. 2D echo: EF of 25%, with severely dilated LV with severe global hypokinesis of left ventricl and akinetic mid inferior wall. ICD/pacer leads in RV; RVSP of 35mmhg; no significant change since prior study cardiology on board 2. Nonstemi initial troponin was 0.088 and this trended up to 0.2. 2D echo as under 1. cardiology on board. on aspirin, plavix, statin and carvedilol Had cardiac cath with successful PTCA and drug-eluting stent placement in the mid left circumflex artery in the proximal left circumflex artery. Patient counseled to quit all tobacco products and is to be on aspirin and Plavix as well as statin. and imdur 3. CAD: s/p stent to proximal middle branch of RCA 2D echo as under 1 and 2. had 2 new stents placed as under 2. on aspirin, plavix and statin as well as carvedilol and imdur 4. Type 2 diabetes mellitus A1C is 6.2. Not on any meds at home and is diet controlled. ISS. accuchecks ACHS 5. CKD 3: Cr is 1.47; was 1.36 on admission. Will monitor DVT prophylaxis: lovenox Inpatient E&M: 19574 Subs Hosp L2
[2019-11-11 12:25] LABS: Bedside Glucose 114 mg/dL (70-110)
[2019-11-11 16:45] LABS: Bedside Glucose 119 mg/dL (70-110)
[2019-11-11] MEDS: Furosemide 40 MG Tablet PO (17:13)
[2019-11-11 22:25] LABS: Bedside Glucose 122 mg/dL (70-110)
[2019-11-12] VITALS (7 sets, daily range): BP systolic 100–114; BP diastolic 59–60; PULSE 66–81; RESP 16–18; TEMP 36.7; O2SAT 91–95
[2019-11-12 05:33] LABS: Absolute Lymphocyte Count 2.09 X10^3/uL (0.83-4.51); Absolute Neutrophil Count 9.8 X10^3/uL (2.0-7.7); Basophil# 0.05 X10^3/uL; Basophil% 0.4 % (0-1); Eosinophil# 0.26 X10^3/uL; Eosinophils% 1.9 % (0-5); Hematocrit 39.9 % (40-54); Hemoglobin 13.1 g/dL (13.0-16.5); Lymphocyte # 2.09 X10^3/ul (4.0); Mean Corp Hgb Conc 32.8 g/dL (32-36); Mean Corpuscular Hgb 29.8 pg (27.0-32.0); Mean Corpuscular Volume 90.9 fL (80-94); Mean Platelet Vol. 10.1 fl (6.2-12.0); Monocyte# 1.58 X10^3/uL; Monocyte% 11.4 % (0-10); NRBC Flagged by Analyzer 0 % (0-5); Neutrophil # 9.84 X10^3/uL (2.7-7.7); Neutrophil % 70.8 % (47-70); POSITIVE DIFFERENTIAL YES; Platelet Count 239 K/mm3 (150-450); RBC Distribution Width CV 12.6 % (11.6-14.6); RBC Distribution Width SD 41.6 fl (35.1-43.9); Red Blood Count 4.39 M/mm3 (4.6-6.2); White Blood Count 13.9 K/mm3 (4.4-11.0)
[2019-11-12 05:37] LABS: Differential Indicated SCAN CRITERIA MET
[2019-11-12 06:02] LABS: Anion Gap 9 (5-15); BUN 47 mg/dL (7-18); BUN/Creat Ratio 28.3 RATIO (10-20); Calcium,Total 8.6 mg/dL (8.5-10.1); Chloride 107 mmol/L (98-107); Creatinine, Serum 1.66 mg/dL (0.70-1.30); EST Glomerular Filtration Rate 44 mL/min (>60); Est Glom Filt Rate - Afr Amer 53 mL/min (>60); Estimated Creatinine Clearance 46.75 ml/min; Glucose 148 mg/dL (74-106); Potassium 3.7 mmol/L (3.5-5.1); Sodium Level 141 mmol/L (136-145)
[2019-11-12 06:11] LABS: Differential Comment SCANNED
[2019-11-12 06:46] LABS: Bedside Glucose 137 mg/dL (70-110)
[2019-11-12] MEDS: Aspirin 81 MG TAB.CHEW PO (07:36)
--- NOTE | 2019-11-12 10:00 | EKG12_ITS ---
Test Reason : AM EKG Blood Pressure : / mmHG Vent. Rate : 078 BPM Atrial Rate : 078 BPM P-R Int : 190 ms QRS Dur : 174 ms QT Int : 458 ms P-R-T Axes : 019 -27 124 degrees QTc Int : 522 ms Sinus rhythm with occasional Premature ventricular complexes Left bundle branch block Abnormal ECG When compared with ECG of 11-NOV-2019 05:25, MANUAL COMPARISON REQUIRED, DATA IS UNCONFIRMED Confirmed by ZOILA RATLIFF, JERARDO ([id number]), primer expeditor and drier RORO SHORT ([id number]) on 11/13/2019 9:20:52 AM Referred By: [facility] Confirmed By:JERARDO CUMMINGS MD
[2019-11-12] MEDS: ICOSAPENT ETHYL 1 GM CAPSULE 2 GM PO (10:01)
[2019-11-12] MEDS: Carvedilol 6.25 MG Tablet PO (10:01)
[2019-11-12] MEDS: Furosemide 40 MG Tablet PO (10:01)
[2019-11-12] MEDS: SACUBITRIL/VALSARTAN 97-103 MG TABLET 1 EACH PO (10:01)
[2019-11-12] MEDS: Clopidogrel Bisulfate 75 MG Tablet PO (10:01)
[2019-11-12] MEDS: Isosorbide Mononitrate 30 MG Tablet PO (10:01)
--- NOTE | 2019-11-12 10:03 | PN.CARD_ITS ---
Subjectve: The patient is awake and alert. He denies any ongoing chest discomfort or difficulty breathing. He has not had ongoing peripheral pitting edema. He states overall since his admission to the hospital he feels much better at this time. He states he does not feel as short of breath or dyspneic or distended/tight feeling. Objective: Vital Signs Temp Pulse Resp BP Pulse Ox 98.1 F 81 18 114/59 L 95 11/12/19 09:58 11/12/19 09:58 11/12/19 09:58 11/12/19 09:58 11/12/19 09:58 Oxygen Flow Rate (L/min) 2 Oxygen Delivery Method Room Air Weight: 200 lb 13.458 oz Body Mass Index (BMI) 28.5 Intake and Output for Last 24 Hours 11/10/19 11/11/19 11/12/19 23:59 23:59 23:59 Intake Total 1682.5 / 1682.5 910 / 1330 840 / 840 Output Total 1950 / 1950 650 / 1250 900 / 900 Balance -267.5 / -267.5 260 / 80 -60 / -60 General: Awake, Alert, Oriented x 3, Cooperative, No Acute Distress, Obese HEENT: Atraumatic, Normocephalic, PERRL, EOMI, Sclera Non Icteric Oral: Moist Mucosa Neck: Supple, Good ROM, No JVD Lungs: Clear to auscultation Cardiovascular: Regular Rhythm, Premature Ectopic Beats, Normal S1, Normal S2 Abdomen: Bowel Sounds Present, Soft, Non Tender Extremities: No edema Neurological: No Focal Motor or Sensory Deficit Psych/Mental Status: Appropriate 11/12/19 05:20: WBC 13.9 H, RBC 4.39 L, Hgb 13.1, Hct 39.9 L, MCV 90.9, MCH 29.8 , MCHC 32.8, Plt Count 239, MPV 10.1, Immature Gran % (Auto) 0.500, Neut % (Auto) 70.8 H, Lymph % (Auto) 15.0 L, Cloud % (Auto) 11.4 H, Eos % (Auto) 1.9, Baso % (Auto) 0.4, Absolute Neuts (auto) 9.8 H, Nucleated RBC % 0 11/12/19 05:20: Sodium 141, Potassium 3.7, Chloride 107, Carbon Dioxide 25.0, Anion Gap 9, BUN 47 H, Creatinine 1.66 H, Est GFR (MDRD) Af Amer 53 L, Est GFR (MDRD) Non-Af 44 L, BUN/Creatinine Ratio 28.3 H, Glucose 148 H, Calcium 8.6 Rhythm: Electronic ventricular paced rhythm; PVCs Medical Necessity - Tobacco Use Smoking Status: Heavy Smoker (>10/day) Tobacco Use: Cigarettes Assessment/Plan 1. CAD status post PCI The patient does have underlying CAD. He is undergone previous and now additional PCI. Hopefully this will help with respect to his overall left ventricular wall motion systolic function. He will continue medical therapy as deemed appropriate. 2. Cardiomyopathy The patient does have a cardiomyopathy. His cardiomyopathy may be compatible with a combination of both CAD related and non-CAD related. He will continue medical therapy. 3. CHF: Acute on chronic systolic mediated The patient has had recurrent acute on chronic systolic mediated CHF. This may be secondary to his recent discontinuation of diuretic therapy and increased salty intake. Based upon the patient's cardiac enzymes he underwent evaluation with diagnostic cardiac catheterization. There was concern about coronary artery disease contributing to his overall clinical course. Thus he subsequently underwent PCI as noted above. He has had improvement with medical management/diuresis. He will need to remain on diuretics with follow-up clinical evaluation and laboratory evaluation with [facility]. His diuretics and electrolyte supplements will need to be adjusted over time as deemed appropriate. 4. ICD He does have a finding of a left bundle branch block. Based upon his monitor and electrocardiographic reports this may be a rate related left bundle branch block. The patient does have an ICD in place. He will continue to be followed. 5. Hyperlipidemia He will continue medical management. 6. Hypertension The patient's blood pressure will be followed and his medications adjusted accordingly. Overall, at the present time, the patient will continue his current medical management. There are no additional cardiovascular diagnostic studies/pro cedures scheduled for the patient at this time. As he appears to be symptomatically improved it was felt he would continue medical therapy and plans for future outpatient follow-up in the outpatient setting as well as having a follow-up BMP the week of 11-16-2019 to reassess his electrolytes and renal status. The above was discussed with the patient and he was agreeable to this approach. This note was generated using a voice recognition system and there may be incorrect words, spelling or punctuation that were not noted when reviewing the office note prior to saving.
--- NOTE | 2019-11-12 10:46 | NURSING ---
This RN called pt's daughter Tiffany for update.
[2019-11-12 11:09] LABS: Magnesium 2.3 mg/dL (1.6-2.6)
[2019-11-12 11:16] LABS: Bedside Glucose 147 mg/dL (70-110)
--- NOTE | 2019-11-12 11:57 | PCM.DC ---
- Discharge Diagnoses Current Active Problems: Current Active and Chronic Problems (Last Updated 11/10/19 @ 17:50 by Aleyda Paz) Acute CHF (congestive heart failure) (Acute) Troponin I above reference range (Acute) Hypoxia (Acute) CKD (chronic kidney disease) stage 3, GFR 30-59 ml/min (Chronic) Type 2 diabetes mellitus (Chronic) Pure hypercholesterolemia (Chronic) Essential (primary) hypertension (Chronic) Automatic implantable cardiac defibrillator in situ (Chronic) Cardiomyopathy in other diseases classified elsewhere (Chronic) Atherosclerotic heart disease of habematolel coronary artery without angina pectoris (Chronic) You will use the following diet at home:: Cardiac Your food should be the consistency of: Regular Your liquids should be the consistency of: Regular/Thin Discharge Activity: Return to Normal Activity Weight Bearing Status: Weight bearing as tolerated Call your doctor if you observe: Shortness of breath, Dizziness, Fainting spells, Swelling in the ankles Instructions: Heart Failure: Evaluating Your Heart, Heart Failure: Medications to Help Your Heart, Heart Failure: Tracking Your Weight, Understanding Coronary Artery Disease (CAD) Allergies/Adverse Reactions: Allergies FRANK Inhibitors Allergy (Verified 11/08/19 09:05) cough atorvastatin [From Lipitor] Allergy (Verified 11/08/19 09:05) myalgia gabapentin [From Neurontin] Allergy (Verified 11/08/19 09:05) numbness Penicillins Allergy (Verified 11/08/19 09:05) Hives Sulfa (Sulfonamide Antibiotics) Allergy (Verified 11/08/19 09:05) Hives Medications to take at Discharge Aspirin [Aspirin, Baby] 81 mg PO DAILY@0800 09/10/14 melatonin 3 mg tablet 3 mg PO HS PRN 09/01/18 nitroglycerin 0.4 mg sublingual tablet 0.4 mg SUBLINGUAL Q5M PRN #25 tab 09/01/18 clopidogrel 75 mg tablet 75 mg PO DAILY #90 tab 09/07/19 rosuvastatin 10 mg tablet 10 mg PO DAILY 09/22/19 sacubitril 24 mg-valsartan 26 mg tablet 1 tab PO BID 09/22/19 carvedilol 6.25 mg tablet 6.25 mg PO BID #180 tab 11/04/19 isosorbide mononitrate 30 mg tablet,extended release 24 hr 30 mg PO QDAY 90 Days #90 tab 05/27/20 Icosapent Ethyl [Vascepa] 2 cap PO BID 11/08/19 Sacubitril/Valsartan 97-103 mg [Entresto 97 mg-103 mg Tablet] 1 ea PO BID 11/08/19 Furosemide [Lasix] 40 mg PO DAILY #30 tab 11/12/19 Spironolactone [Aldactone] 12.5 mg PO DAILY #30 tab 11/12/19 The following prescriptions were given: Spironolactone [Aldactone] 12.5 mg PO DAILY #30 tab Transmission Status: Pending to [id number] Furosemide [Lasix] 40 mg PO DAILY #30 tab Transmission Status: Pending to [id number] Orders to be completed after discharge: Phase II, Outpatient Cardiac Rehab Location: None Selected Primary Care Physician: Eleuterio Abreu Chi, MD [Primary Care Provider] - Please follow up with your Primary Care Physician in: 1-2 weeks Test Results: Test results from this visit will be discussed in further detail at your follow-up appointment, if applicable. Please Follow Up With: Pratik Yoder MD When: 1-2 weeks Please Follow Up With: Eleuterio Abreu Chi, MD Proposed Discharge Date: 11/12/19
--- NOTE | 2019-11-12 11:59 | PCM.DC.SUM ---
Discharge Date and Diagnosis Date of Admission: 11/08/19 Date of Discharge: 11/12/19 - Primary Discharge Diagnosis Acute Problems: Active Problems (Last Updated 11/10/19 @ 17:50 by Aleyda Paz) Acute CHF (congestive heart failure) (Acute) Troponin I above reference range (Acute) Hypoxia (Acute) CAD s/p stents - Secondary Discharge Diagnosis Chronic Problems: Chronic Problems (Last Updated 11/10/19 @ 17:50 by Aleyda Paz) CKD (chronic kidney disease) stage 3, GFR 30-59 ml/min (Chronic) Type 2 diabetes mellitus (Chronic) Presence of stent in coronary artery (Chronic 11/10/19) PTCA/YUDY to LCX and PTCA/YUDY to mid and distal RCA 06/22/11; Successful PTCA/YUDY to proximal/mid PL branch of RCA with a 3.0 x 38 Promus Synergy, post dilated proximally with a 3.5 x 8 NC Balloon; 75%-->0%, no dissection 05/22/19. Successful PTCA/YUDY mid LCX with a 2.25 x 28 Promus Synergy, followed immediately downstream with a 2.25 x 8 Promus Synergy; 75%-->0%, no dissection. Successful PTCA/YUDY of proximal LCX with a 2.5 x 8 Promus Synergy, post dilated with a 3.0 x 8 NC balloon; 75%-->0%. no dissection. 11/10/2019 Pure hypercholesterolemia (Chronic) Essential (primary) hypertension (Chronic) Other senior living (current) drug therapy (Chronic) Automatic implantable cardiac defibrillator in situ (Chronic) Cardiomyopathy in other diseases classified elsewhere (Chronic) Blurred vision (Chronic) Ventricular tachycardia (Chronic) Atherosclerotic heart disease of [place] coronary artery without angina pectoris (Chronic) Hospital Course and Treatment Imaging Results: Diagnostic Data Chest X-Ray 11/08/19 09:13 IMPRESSION: Mild prominent interstitial markings noted throughout with underlying interstitial edema component not excluded. Electronically Signed: José Miguel Guan DO at 9:56 EDT , Service support , cardiology- Dr Ga Procedures: 2-D Echocardiogram, Cardiac catheterization Summary of Care Provided: The patient is a 69 year old M with an extensive past medical history as outlined was admitted through the ED on 11/08/2019 with a complaint of shortness of breath for 2 days. Symptoms gradually worsened and he had assisted orthopnea and PND but denied any swelling in his lower extremities. Chest x-ray showed evidence of pulmonary edema concerning for CHF and BNP was greater than 2000. He has been taken off his Lasix in September 2019 by his primary care doctor presumably because of his kidney disease. Patient was admitted and managed for acute exacerbation of heart failure with reduced ejection fraction. 2D echo done April 2019 showed EF of 35%. He was also continued on his Entresto and carvedilol and had fluid restrictions thousand 500 cc daily. Repeat 2D echo done showed EF of 25% with severely dilated left ventricle with severe global hypokinesis of the left ventricle and akinetic mid inferior wall of the left ventricle with ICD pacer leads in right ventricle and RVSP of 35 mmHg. Initial troponin was 0.088 and this trended up to 0.2. Cardiology was consulted. Patient had cardiac cath which showed [place] multivessel coronary artery disease and he was immediately referred for PCI with placement of 3 stents to his left circumflex artery. Patient's postop course was uncomplicated and he remained stable. He was transferred out of the ICU to the progressive care unit where he was weaned off of oxygen and remained well. He was put back on Lasix 40 mg once daily as well as spironolactone 12.5 mg daily per cardiology. 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 Was also continued on aspirin and Plavix as well as carvedilol and Imdur. Patient seen and examined prior to discharge. He felt well and wanted to go home. Review of systems otherwise negative. Labs and vitals reviewed. Home medication reviewed and reconciled. o/e: Vital Signs Temp Pulse Resp BP Pulse Ox 98.1 F 80 18 114/59 L 95 11/12/19 09:58 11/12/19 10:43 11/12/19 09:58 11/12/19 09:58 11/12/19 10:12 [] General: Alert, Oriented x3, Cooperative, No apparent distress HEENT: Atraumatic, PERRLA, EOMI, Normocephalic Oral: Moist Mucosa Neck: Supple, No JVD, Negative Carotid Bruits Lungs: - - mildly diminished breath sounds bibasally, no wheezes or crackles. Cardiovascular: Regular rate, Regular Rhythm, Normal S1, Normal S2, No murmurs Abdomen: Bowel Sounds Present, Soft, Non Tender, Non-Distended, No Hepato-splenomegaly Extremities: No clubbing, No cyanosis, No edema, Capillary Refill Less than 3 Seconds Skin: No rashes, No breakdown; right groin cath site is clean and dry Musculoskeletal: No Tenderness to Palpation of Joints or Extremities Lymphatic: No Cervical, Supraclavicular, or Inguinal Adenopathy Neurological: Cranial nerves II-XII grossly intact, Neuro grossly intact, Motor Exam 5/5 strength throughout Psych/Mental Status: Normal Affect, Appropriate, Alert and oriented to time, place, person, mood and affect Plan is to discharge home today. - Physical Exam Vitals/I&O's: Vital Signs Temp Pulse Resp BP Pulse Ox 98.1 F 80 18 114/59 L 95 11/12/19 09:58 11/12/19 10:43 11/12/19 09:58 11/12/19 09:58 11/12/19 10:12 Oxygen Flow Rate (L/min) 2 Oxygen Delivery Method Room Air Weight: 200 lb 13.458 oz Body Mass Index (BMI) 28.5 Intake and Output for Last 24 Hours 11/10/19 11/11/19 11/12/19 23:59 23:59 23:59 Intake Total 1682.5 / 1682.5 910 / 1330 1520 / 1520 Output Total 1950 / 1950 650 / 1250 1300 / 1300 Balance -267.5 / -267.5 260 / 80 220 / 220 Laboratory Results 11/11/19 12:18: POC Glucose 114 H 11/11/19 16:41: POC Glucose 119 H 11/11/19 21:56: POC Glucose 122 H 11/12/19 05:20: WBC 13.9 H, RBC 4.39 L, Hgb 13.1, Hct 39.9 L, MCV 90.9, MCH 29.8, MCHC 32.8, RDW Std Deviation 41.6, RDW Coeff of Jane 12.6, Plt Count 239, MPV 10.1, Immature Gran % (Auto) 0.500, Neut % (Auto) 70.8 H, Lymph % (Auto) 15.0 L, [place] % (Auto) 11.4 H, Eos % (Auto) 1.9, Baso % (Auto) 0.4, Absolute Neuts (auto) 9.8 H, Absolute Lymphs (auto) 2.09, Nucleated RBC % 0, Differential Comment SCANNED, Diff Path Review October11/12/19 05:20: Sodium 141, Potassium 3.7, Chloride 107, Carbon Dioxide 25.0, Anion Gap 9, BUN 47 H, Creatinine 1.66 H, Estim Creat Clear Calc 46.75, Est GFR (MDRD) Af Amer 53 L, Est GFR (MDRD) Non-Af 44 L, BUN/Creatinine Ratio 28.3 H, Glucose 148 H, Calcium 8.6 11/12/19 05:20: Magnesium 2.3 11/12/19 06:37: POC Glucose 137 H 11/12/19 11:10: POC Glucose 147 H Current Medications Acetaminophen (Tylenol) 650 mg PO Q6H PRN PRN PRN Reason: Pain Score 1-10/Temp > 100.7 F Aspirin (Aspirin, Baby) 81 mg PO DAILY@0800 [facility] Last Admin: 11/12/19 07:36 Dose: 81 mg Documented by: Atropine Sulfate () 0.5 mg IV UD PRN PRN Reason: HR <50 bpm Carvedilol (Coreg) 6.25 mg PO BID [facility] Last Admin: 11/12/19 10:01 Dose: 6.25 mg Documented by: Clopidogrel Bisulfate (Plavix) 75 mg PO DAILY [facility] Last Admin: 11/12/19 10:01 Dose: 75 mg Documented by: Dextrose (D50w Syringe) 0 gm IV X1 PRN; Protocol PRN Reason: Hypoglycemia Furosemide (Lasix) 40 mg PO DAILY [facility] Glucagon () 1 mg IM .X1 PRN PRN Reason: Hypoglycemia Heparin Sodium (Beef Lung) (Heparin 500 Unit/5 Ml (100/Ml)) 500 unit IV UD PRN PRN Reason: HEPARIN FLUSH Sodium Chloride () 500 mls @ 15 mls/hr IV PRN PRN PRN Reason: Blood Transfusion Sodium Chloride () 250 mls @ 15 mls/hr IV .[id number] PRN PRN Reason: Saline Flush Sodium Chloride () 250 mls @ 15 mls/hr IV .[id number] PRN PRN Reason: Additional IVPB Infusion Sodium Chloride () 1,000 mls @ 0 mls/hr IV .Q0M [facility] Insulin Human Lispro (Humalog Kwikpen (Bkc)) 0 unit SC TIDAC [facility]; Protocol Last Admin: 11/12/19 11:14 Dose: Not Given Documented by: Isosorbide Mononitrate (Imdur) 30 mg PO DAILY [facility] Last Admin: 11/12/19 10:01 Dose: 30 mg Documented by: Lorazepam (Ativan) 1 mg PO Q6H PRN PRN PRN Reason: BACK SPASMS/ANXIETY Melatonin (Melatonin) 3 mg PO QHS PRN PRN Reason: INSOMNIA Metoclopramide HCl (Reglan) 5 mg IV Q6H PRN PRN PRN Reason: NAUSEA/VOMITING Morphine Sulfate () 2 - 4 mg IV Q4H PRN PRN PRN Reason: Pain Score 1-10/10 Morphine Sulfate () 2 - 4 mg IV Q4H PRN PRN PRN Reason: Pain Score 1-10/10 Nitroglycerin (Nitrostat) 0.4 mg SUBLINGUAL Q5M PRN PRN Reason: CARDIAC/CHEST PAIN Ondansetron HCl (Zofran) 4 mg IV Q8H PRN PRN PRN Reason: NAUSEA/VOMITING Rosuvastatin Calcium (Crestor) 10 mg PO QHS [facility] Last Admin: 11/11/19 21:57 Dose: 10 mg Documented by: Sacubitril/Valsartan (Entresto 97 Mg-103 Mg Tablet) 1 each PO BID [facility] Last Admin: 11/12/19 10:01 Dose: 1 each Documented by: Sodium Chloride () 10 - 40 ml IV UD PRN PRN Reason: SALINE FLUSH Last Admin: 11/11/19 08:35 Dose: 10 ml Documented by: Sodium Chloride () 500 ml IV BOLUS PRN PRN Reason: VASO-VAGAL PROTOCOL Spironolactone (Aldactone) 12.5 mg PO DAILY [facility] Discharge Diet: Low fat/ Low Cholesterol Discharge Activity: Return to Normal Activity Weight Bearing Status: Weight bearing as tolerated Call your doctor if you observe: Shortness of breath, Dizziness, Fainting spells, Swelling in the ankles Home Medications: Medications to take at Discharge Aspirin [Aspirin, Baby] 81 mg PO DAILY@0800 09/10/14 melatonin 3 mg tablet 3 mg PO HS PRN 09/01/18 nitroglycerin 0.4 mg sublingual tablet 0.4 mg SUBLINGUAL Q5M PRN #25 tab 09/01/18 clopidogrel 75 mg tablet 75 mg PO DAILY #90 tab 09/07/19 rosuvastatin 10 mg tablet 10 mg PO DAILY 09/22/19 sacubitril 24 mg-valsartan 26 mg tablet 1 tab PO BID 09/22/19 carvedilol 6.25 mg tablet 6.25 mg PO BID #180 tab 11/04/19 isosorbide mononitrate 30 mg tablet,extended release 24 hr 30 mg PO QDAY 90 Days #90 tab 11/04/19 Icosapent Ethyl [Vascepa] 2 cap PO BID 11/08/19 Sacubitril/Valsartan 97-103 mg [Entresto 97 mg-103 mg Tablet] 1 ea PO BID 11/08/19 Furosemide [Lasix] 40 mg PO DAILY #30 tab 11/12/19 Spironolactone [Aldactone] 12.5 mg PO DAILY #30 tab 11/12/19 Following Prescrptions Were Given to Patient: Spironolactone [Aldactone] 12.5 mg PO DAILY #30 tab Transmission Status: Received by [facility] Furosemide [Lasix] 40 mg PO DAILY #30 tab Transmission Status: Received by [facility] Other Amb Orders: Phase II, Outpatient Cardiac Rehab Location: None Selected Primary Care Physician: Eleuterio Abreu Chi, MD [Primary Care Provider] - Please follow up with your Primary Care Physician in: 1-2 weeks Please Follow Up With: Pratik Yoder MD When: 1-2 weeks Please Follow Up With: Eleuterio Abreu Chi, MD Patient Instructions: Heart Failure: Tracking Your Weight, Understanding Coronary Artery Disease (CAD), Heart Failure: Evaluating Your Heart, Heart Failure: Medications to Help Your Heart Disposition: Home Minutes spent on discharge:: 45 Patient Condition:: Stable Medical Necessity - Tobacco Use Smoking Status: Heavy Smoker (>10/day) Tobacco Use: Cigarettes Meaningful Use Info Meaningful Use Diagnoses (Choose all that apply): CHF - CHF FRANK/ARB ordered at discharge?: Yes Documented LVEF (%): 25 Inpatient E&M: 92081 Disch Hosp
[2019-11-12 12:23] LABS: Pathologist Review Reviewed
--- NOTE | 2019-11-13 14:35 | CASEMGMT ---
XIOMY STINSON Discharge Follow-Up Phone Call. Denise: Margie Strata: 3 Discharge Date: 11/12/19 Adm Dx: CHF Call to pt to inquire about how he has been doing since being discharged from the hospital. Pt stated he has been doing well and is just now returning from a wak up town to drop off some bills. He stated, I'm a little winded with I'm rested and sat down some. Pt denies having SOB when not exerting himself. He states his granddaughter spent the night last evening and has even been helping him with cleaning his home. XIOMY STINSON encouraged pt to not over-do and to make sure he gets plenty of rest. Pt states he understands the importance of that. He stated, I get a little tired, but I'm good. Pt states he was able to belt picker his new prescriptions at [facility] yesterday after being discharged from the hospital. He denied having any questions about any of his medications. He did stated, thought, that his Spironolactone tabs are 25 mg but that he is only supposed to take 1/2 tab. He states he does not have a pill cutter and is concerned that if he tries to cut them in half that they will crumble, so he just plans on taking the full tablet, as that is what he used to take. XIOMY STINSON reviewed the orders with pt and discussed importance of taking only what is prescribed and asked pt if there is anyone in his family that could get a pill cutter for him. Upon further discussion, pt stated his daughter works at a pharmacy and that he would contact her to have her belt picker one. He voices understanding of cutting the tablet in half and taking only 1/2 tab as prescribed. Reviewed all follow-up appts with pt and he is aware of them. He denies having any other concerns/needs/questions. XIOMY STINSON thanked pt for choosing [facility]. Pt stated, I can't wait to get the hospital survey, so I can rate the hospital really high. Everyone took such great care of me. Maite FRITZ RN, CM
== END 2019-11-12 13:43 | disposition home or self-care (01) | DRG 246 ==
LOC: ED 10:54 → PCU 11:05 → ICU 11-10 20:08 → PCU 11-11 13:54
PROVIDERS: Family Medicine; Internal Medicine Cardiovascular Disease; Emergency Provider Physician Assistant Medical; PCP Family Medicine Geriatric Medicine; Visit Provider Student in an Organized Health Care Education/Training Program
DX: I21.4 Non-ST elevation (NSTEMI) myocardial infarction (principal); I50.21 Acute systolic (congestive) heart failure; I13.0 Hypertensive heart and chronic kidney disease with heart failure and stage 1 through stage 4 chronic kidney disease, or unspecified chronic kidney disease; I25.10 Atherosclerotic heart disease of native coronary artery without angina pectoris; R09.02 Hypoxemia; E11.22 Type 2 diabetes mellitus with diabetic chronic kidney disease; N18.3 Chronic kidney disease, stage 3 (moderate); E78.00 Pure hypercholesterolemia, unspecified; I25.5 Ischemic cardiomyopathy; E78.5 Hyperlipidemia, unspecified; I25.2 Old myocardial infarction; Z66 Do not resuscitate; F17.210 Nicotine dependence, cigarettes, uncomplicated; Z79.899 Other long term (current) drug therapy; Z91.11 Patient's noncompliance with dietary regimen; Z95.810 Presence of automatic (implantable) cardiac defibrillator; Z95.5 Presence of coronary angioplasty implant and graft; Z79.02 Long term (current) use of antithrombotics/antiplatelets; Z79.82 Long term (current) use of aspirin; Z83.3 Family history of diabetes mellitus; Z82.49 Family history of ischemic heart disease and other diseases of the circulatory system
CPT/HCPCS: 36415; 71045; 80048; 80053; 82962; 83036; 83735; 83880; 84484; 85025; 85027; 85347; 87635; 92928; 93005; 93306; 93454; 97802; 99152; 99153; 99285; 99406; C1760; G2023; J7030; Q9957; Q9967; A4216; C1725; C1769; C1874; C1887; C1894; C8929; C9600; J1940; U0004

== ENCOUNTER → 2019-11-17 10:24 | Outpatient (CLI) | payer MEDICARE, OTHER, SELFPAY ==
[2019-11-08 13:07] VITALS: BMI 28.5
--- NOTE | 2019-11-17 10:28 | PCM.CR.ITP ---
Diagnosis - General Information Admitting Diagnosis: S/P PCI W/CORONARY STENTING, CONGESTIVE HEART FAILURE EF<25%, CARDIOMYOPATHY Personal Learning Style:: Audio/Visual, Written Barriers to Learning: Hearing Impairment, Vision Impairment - BLURRED VISION Stage of change r/t lifestyle modifications:: Action Gave educational material for:: Treating Heart Disease, Emotions & Heart Disease, Stress Management & Relaxation, Sleep Disorders & Heart Disease, How The Heart Works, What it means to have Heart Disease, How Coronary Artery Disease is Diagnosed, Heart Procedures, What Heart Medications Do, Risk Factors & Modifications, Living an Active Life, Nutrition - Education/Goals Individual Counseling: Initial Assessment: Nicotine/Smoking, Abnormal Cholesterol Levels - PURE HYPERCHOLESTEROLEMIA, High Blood Pressure, Diabetes - GLUCOSE 148, A1C 6.2, A. Fasting Blood Sugar >100, C. High Triglycerides >150 - TRI 203, Hypertension, Low HDL <40/Males or <50/Females - HDL 29, Sedentary Lifestyle, Stress - RECENTLY LOST , HEALTH ISSUES Cardiac Rehabilitation Goals: 1. Maintain the individual as the primary focus of care. 2. To improve the patient's quality of life. 3. Identification of cardiac risk factors and provide cardiac risk factor management. 4. Enhance the psychosocial status of the patient. 5. Reconditioning enough to allow the patient to resume customary activities. 6. Control symptoms of cardiac disease Personal Goals: Initial Assessment: Quit smoking (participate in smoking cessation, Improve energy level, Improve knowledge of cardiac disease, Improve muscle strength and endurance, Improve diet and eating habits (eat healthier) Scale for measuring improvement of personal goals: Enter appropriate number in Comments. 2 = Unchanged. 3 = Slightly Better. 4 = Moderate Improvement. 5 = Met my Goal - Diagnosis & Disease Process Outcomes/Goals: Pt IDs own risk factors & lifestyle modifications by Session 10, Verbalizes symptoms of angina & response by session 3., Pt independently manages Plan/Interventions: Assist Pt to ID & engage in lifestyle modification to reduce CVD risk, Instruct on individual risk factors, Review symptoms of angina & emergency actions, Review secondary diagnosis & identify educational needs. - Safety Referral to Physical Therapy: No Referral to [facility] Case Management: No Fall Risk Assessed:: Yes Assistive Devices:: None Exercise - Initial Assessment - Visit Date of Eval: 11/17/19 Session #:: 0 - INITIAL EVALUATION Mets: Pre-: >5 METS for 30 minutes by discharge - Physician Prescribed Exercise Modalities: Treadmill, Airdyne, NuStep, SciFit Frequency: 3x/week for 12 weeks [36 sessions] Intensity: 60-80% of age predicted maximum heart rate reserve Current METSs:: 3.0 Target Heart Rate:: 99-129 Resting Blood Pressure: 114/59 EKG Type: SINUS RHYTHM W/OCCASIONAL PVCs and LBBB Current Physical Activity or Exercising minutes: 0 - Outcomes & Goals Goals:: Verbalizes understanding of THR, RPE & goal METS by session 6, Documents in home exercise log/reports 30 min aerobic 5 day/wk by DC, Demonstrates accurate pulse taking by DC - Intervention & Plan Exercise Program Goals: Instruct on personal THR & RPE, Instruct on MET level & personal MET goal, Show patient to take own pulse /validate performance until accurate, Instruct on home exercise - Physical Activity Home Exercise Physical Activity - Home Exercise: Safe Exercise, Warm-up, Self-monitoring, Cool-Down, Home Exercise > 30 min Daily, Sitting Time <3 hours/daily - Outcomes & Goals Outcomes/Goals: Demonstrates correct Warm-up/exercise Cool-Down (S3) if = 2.5 METs, Verbalizes symptoms of exercise intolerance by Session 3 (S3), Demonstrate safe equipment use (S3) & follows exercise prescrition (6) - Intervention & Plan Plan/Intervention: Instruct warm-up & cool-down if exercising at > 2 METs, Instruct on symptoms of exercise intolerance & actions to take, Instruct & monitor on saf, Assess intial functional capacity & safety risk Nutrition - Initial Assessment - Program Goals Nutrition Program Goals: LDL <100 optimal. 100 - 129 Near optimal. 130 - 159 Borderline High. 160 - 189 High. Total Cholesterol <200 desirable. 200 - 239 Borderline High. >/= 240 High. HDL < 40 Low >/=60 High. Triglycerides <150 desirable. <199 optimal. VlDL 5 - 40. HgbA1C <7%. BMI <25 Patient has diagnosis of Hyperlipidemia (ICD E78)?: Yes - Visit Date of Assessment:: 11/17/19 - PURE HYPERCHOLESTEROLEMIA Session #:: 0 - INITIAL EVALUATION - Cholesterol/Lipids Triglycerides (mg/dL): 203 Total Cholesterol (mg/dL): 173 LDL Cholesterol (mg/dL): 103 HDL Cholesterol (mg/dL): 29 Determine presence & major risk factors that modify LDL goal: Cigarette smoking, Hypertension or hypertensive medication, Low HDL cholesterol <40 mg/dL*, Family history of premature CHD in Male < 55 years: female <65 yearsFa, Age men > 45 years; women >/= 55 years Outcomes/Goals: Pt IDs own risk factors & lifestyle modifications by Session 10, Verbalizes symptoms of angina & response by session 3., Pt independently manages Intervention/Plan: Instruct on personal lipid levels & lipid goals/NCEP guidelines, Instruct on cholesterol Referral to dietitian:: Yes - MEDICAL NUTRITION THERAPY - Diabetes (Other Core Measures) Diabetes Type: Diagnosis Type II ICD-10 E11 Fasting blood glucose:: 148 Hgb A1C (4.2 - 6.3): 6.2 Insulin dependent injection/pump?: No Non-Insulin Dependent?: No - DR. JIN TOOK PATIENT OFF OF HIS METFORMIN Do you monitor your blood sugar at home?: Yes - CHECKS BEFORE EACH MEAL Referral to Diabetic Clinic:: Yes - [facility] Outcomes/Goals:: Able to state symptoms of, Able to state, Able to state Intervention/Plan:: Instruct on, Refer to, Instruct on - Weight Mgt (Other Care) Not Applicable: Yes Height: 6 ft Weight:: 200 lb BMI: 27.1 Diagnosis Overweight/Obesity BMI> 30% ICD-10 E66: No Diagnosis High BMI/Morbid Obesity BMI> 35% ICD-10 Z68: No Intervention/Plan: Instruct on ideal BMI & set weight loss goal w/patient - Healthy Eating Habits Will attend diet classes:: Yes Outcomes/Goals:: Consume diet rich in vegs,fruits,whole grain/high fiber,fish,lean meat, Limit sat/trans fats,cholesterol & added salts & sugars Intervention/Plan:: Assess current eating habits - Education Gave educational materials for:: Signs & symptoms of hypoglycemia, Signs & symptoms of hyperglycemia, Relate diabetes to coronary artery disease, Healthy eating Medical - Initial Assessment - Visit Date of Eval: 11/17/19 Session #:: 0 - INITIAL EVALUATION - Medication Compliance Preventative Medication(s):: Aspirin, Clopidogrel/P2Y12 inhibit, Statin/lipid, Beta shanna, Eliquis - ENTRESTO 97MG-103MG H/O mental health issues: depression, anxiety, or addiction?: Yes Doesn?t believe in the benefits of treatment?: No Believes medications are unnecessary or harmful?: No Has a concern about medication side effects?: No Expresses concern over the cost of medications?: No Outcomes/Goals: Verbalizes medications,desired effect & common side effects @ DC, Pt self-reports following medication regimen, Keeps card in wallet w/medications listed by DC Interventions/plans: Instruct on medication effects & side effects, Review medication list w/patient every two weeks, Instruct importance of taking meds as ordered & assist problem solving - Tobacco Use Tobacco Use: Cigarettes How many cigarettes do you smoke per day?: 10 Years Smokin Do you use smokeless tobacco?: No Outcomes/Goals: Smoking cessation achieved or maintained by discharge, Identify aids/strategies for achieving smoking cessation by session 6 Interventions/plan: Instruct on effects of smoking & provide smoking cessation resource, Assist pt to set quit date & provide encouragement, Assist pt to develop strategies to achieve/maintain quit date, Assist pt w/nicotine replacement & medication for cessation success - Hypertension Hypertension Diagnosis:: Hypertension ICD-10 I10 Resting Blood Pressure:: 114/59 Citizen [place] [employer] Hypertension Guidelines: Citizen [place] [employer] Hypertension Guidelines. Normal BP Less than 120/80. Elevated BP 120/80. Hypertension Stage 1: BP 130-139/80-89. Hypertesnion Stage 2: BP 140 or higher/90 or higher. Hypertension Crisis: BP higher than 180/120 Outcomes/Goals: Able to verbalize/achieve optimal blood pressure <130/80, Incorporates diet changes & exercise for blood pressure control by DC Interventions/plan: Instruct on optimal blood pressure, hypertension & medications, Instruct on effects of sodium, alcohol, stress, exercise &hypertension - Tobacco Cessation Referral Smoking Cessation Referral:: No Individual Education/Counseling:: Yes Education Schedule Given:: Yes Psychosocial - Initial Assess - VIsit Date of Eval: 11/17/19 Session #:: 0 - INITIAL EVALUATION Not Applicable: No - RECENT STAGE OF DEPRESSION WITH LOSS OF HIS AND HEALTH ISSUES. History of previous Mental disease:: No History of Emotional Disorders: Depression Self-reported stressors: Medical/Health - Target Goals Target Goals: Assess presence or absence of depression. Using a valid screening tool, maximizes coping skills. Positive support system - Psychosocial Test Tool Used:: Fritz Puente QOL Cardiac, PHQ-9 Questionnaire phq-9 Severity: Severity. 1-4 Minimal Depression. 5-9 Mild Depression. 10-14 Moderate Depression. 15-19 Moderately Sever Depression. 20-27 Severe Depression. Rule: - Referral to Behavioral Health PS - Interventions: Yes Referral to Physician if PHQ-9 if score is 5-9: - REFER TO DR. JIN DEPRESSION RELATED TO HIS PHQ-9 SCORE, Yes Attend Stress Management Classes, No Referral to Behavioral Health if PHQ-9 score >9:, No Referral to [facility] - Outcomes/Goals: See list Psychosocial Outcomes/Goals:: ID's personal stressors & 2 strategies to manage stress by discharge - Intervention/Plan: See List Interventions/Plan:: Assess stressors,coping strategies & signs of derpression on admission, Instruct/assist pt to develop coping & personal stress Mgt strategies, Refer to Physician if appropriate, Instruct patient to recognize signs & symptoms of depression, Instruct patient to recog Patient Health Questionnaire Initial Assessment 1. Little interest or pleasure in doing things: Nearly every day 2. Feeling down, depressed, or hopeless: Nearly every day 3. Trouble falling or staying asleep, or sleeping too much: Several days 4. Feeling tired or having little energy: More than half the days 5. Poor appetite or overeating: More than half the days 6. Feeling bad about yourself -- or that you are a failure or have let yourself or your family down: Not at all 7. Trouble concentrating on things, such as reading the newspaper or watching television: Several days 8. Moving or speaking so slowly that other people could have noticed. Or the opposite - being so fidgety or restless that you have been moving around a lot more than usual: Not at all 9. Thoughts that you would be better off , or of hurting yourself in some way: Not at all How difficult have these problems made it for you to do your work, take care of things at home, or get along with other people?: Very difficult Total Score: 12 VANESSA-Q SV Test - Statements CAD is a disease of the arteries in the heart: False Examples of risk factors for heart disease: True Angina is chest pain or discomfort: I Don't Know The benefits of resistance training include: I Don't Know Eating more meat and dairy products: I Don't Know Anti-platelet medications such as aspirin are important: I Don't Know The only effective way to manage stress: False An exercise warm-up slowly increases heart rate: I Don't Know Prepared, processed foods usually have high sodium: True Depression is common after a heart attack: I Don't Know The statin medications lower cholesterol: I Don't Know To control blood pressure, lower the amount of sodium: True If someone gets chest discomfort during walking: False Transfats are partially hydrogenated vegetable oils: I Don't Know Sleep apnea that is not treated increases the risk: I Don't Know To control cholesterol, one should become a vegetarian: False Someone knows if he/she is exercising at the right level: I Don't Know Diabetes cannot be prevented with exercise & health eating: I Don't Know Stress is a large risk for heart attack: True A diet that can help lower blood pressure is rich in: True - Total Score Total Correct Responses: 9 Self-Efficacy Initial Assessment We would like to know how confident you are in doing certain activities. Please select your confidence level for:: Select your confidence level for the following using the scale 1-10 where 1 is not at all confident and 10 is totally confident. Your score is the average of all 6 responses. Fatigue: How confident are you that you can keep the fatigue caused by your disease from interfering with the things you want to do? Select Number: 3 Physical Discomfort or Pain: How confident are you that you can keep the physical discomfort or pain of your disease from interfering with the things you want to do? Select Number: 2 Emotional Distress: How confident are you that you can keep the emotional distress caused by your disease from interfering with the things you want to do? Select Number: 2 Other Symptoms or Health Problems: How confident are you that you can keep other symptoms or health problems from interfering with the things you want to do? Select Number: 2 Different Tasks and Activities: How confident are you that you can do the different tasks and activities needed to manage your health condition so as to reduce your need to see a doctor? Select Number: 5 Medication: How confident are you that you can do things other than just taking medication to reduce how much your illness affects your everyday life? Select Number: 5 Total Score:: 3 Nutrition Survey - Nutrition Survey Instructions Scoring Instructions: Scoring is as follows: Yes = 1 points. No = 0 point. Patient score that is >/=12 is considered to be at potential nutritional risk and could benefit from a referral to a registered dietitian. - Nutrition Survey Initial Have you lost >10 lbs over the past 2 months without trying?: Yes Are you following a special diet at home for diabetes, low fat, or low salt?: Yes Are you interested in meeting with a dietitian for help understanding your diet?: Yes Do you eat less than 3 meals a day?: Yes Do you eat fatty meats (ladd, sausage, ribs, etc), fried foods, desserts, large amounts of salad dressings, margarine, butter, or cheese most days?: Yes Do you have food allergies? [Enter types in comment field]: Yes - QUESTIONABLE: CAN EAT PEANUTS BUT NOT PEANUT BUTTER PRODUCTS SUCH PEANUT BUTTER SANDWICHES OR COOKIES JUST GET NAUSEATED. Do you eat in restaurants more than 3 times a week?: No Do you season food with salt, seasoning salt, or garlic salt?: No Do you used canned, boxed, frozen meals, or soups, seasoning packets?: Yes Total Score:: 7
--- NOTE | 2019-11-17 10:29 | CR.HP_ITS ---
CR - History & Physical - General Arrival date:: 11/17/19 Arrival time:: 10:29 Date of Referral:: 11/10/19 Date of CR Evaluation:: 11/17/19 Referring Physician: DR. VONNIE RICHARD Primary Diagnosis: S/P PCI W/CORONARY STENTING - History of Present Cardiac Event Onset Date: Enter Onset Date of cardiac illnesses in Comment field below Acute Myocardial Infarction within 12 months:: Yes - ACCORDING TO TROPONIN AND CARDIAC ENZYMES Heart Failure EF <35%:: Yes - LVEF 25% (CONGESTIVE HEART FAILURE DIAGNOSIS) Type of Symptoms:: SHORTNESS OF BREATH Interventions with present event:: PCI W/STENT IN MAY 2019 AND RECENT IN NOVEMBER 2019 Were there any complications?: NONE - Medications Home Medications: Ambulatory Orders Medication Instructions Recorded Aspirin [Aspirin, Baby] 81 mg PO DAILY@0800 09/10/14 melatonin 3 mg tablet 3 mg PO HS PRN 09/01/18 nitroglycerin 0.4 mg sublingual 0.4 mg SUBLINGUAL Q5M PRN #25 tab 09/01/18 tablet clopidogrel 75 mg tablet 75 mg PO DAILY #90 tab 09/07/19 rosuvastatin 10 mg tablet 10 mg PO DAILY 09/22/19 sacubitril 24 mg-valsartan 26 mg 1 tab PO BID 09/22/19 tablet carvedilol 6.25 mg tablet 6.25 mg PO BID #180 tab 11/04/19 isosorbide mononitrate 30 mg 30 mg PO QDAY 90 Days #90 tab 11/04/19 tablet,extended release 24 hr Icosapent Ethyl [Vascepa] 2 cap PO BID 11/08/19 Sacubitril/Valsartan 97-103 mg 1 ea PO BID 11/08/19 [Entresto 97 mg-103 mg Tablet] Furosemide [Lasix] 40 mg PO DAILY #30 tab 11/12/19 Spironolactone [Aldactone] 12.5 mg PO DAILY #30 tab 11/12/19 - Allergies Allergies/Adverse Reactions: Allergies FRANK Inhibitors Allergy (Verified 11/08/19 09:05) cough atorvastatin [From Lipitor] Allergy (Verified 11/08/19 09:05) myalgia gabapentin [From Neurontin] Allergy (Verified 11/08/19 09:05) numbness Penicillins Allergy (Verified 11/08/19 09:05) Hives Sulfa (Sulfonamide Antibiotics) Allergy (Verified 11/08/19 09:05) Hives - Sleep Disorder Evaluation Hx of Sleep Apnea: No Do you snore loudly (louder than talking or can be heard through closed doors)?: No - UNSURE, AND LIVES ALONE Do you often feel tired/ fatigued/ sleepy during daytime?: No Has anyone observed you stop breathing during sleep?: No History of Hypertension (for STOP score): Yes STOP Results: Negative Advanced Directives - Advanced Directives Power of Toddler Caregiver: No Living Will: No Advance Directives Information Provided: Yes Advance Directives on File: No DNR Order?:: No Past Medical History - Past Medical Illness Medical History: Past Medical History (Last Updated 11/10/19 @ 17:50 by Aleyda Paz) CKD (chronic kidney disease) stage 3, GFR 30-59 ml/min (Chronic) N18.3 Type 2 diabetes mellitus (Chronic) E11.9 Presence of stent in coronary artery (Chronic) Onset Date: 11/10/19 Z95.5 PTCA/YUDY to LCX and PTCA/YUDY to mid and distal RCA 06/22/11; Successful PTCA/YUDY to proximal/mid PL branch of RCA with a 3.0 x 38 Promus Synergy, post dilated proximally with a 3.5 x 8 NC Balloon; 75%-->0%, no dissection 05/22/19. Successful PTCA/YDUY mid LCX with a 2.25 x 28 Promus Synergy, followed immediately downstream with a 2.25 x 8 Promus Synergy; 75%-->0%, no dissection. Successful PTCA/YUDY of proximal LCX with a 2.5 x 8 Promus Synergy, post dilated with a 3.0 x 8 NC balloon; 75%-->0%. no dissection. 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) Z79.899 Automatic implantable cardiac defibrillator in situ (Chronic) Z95.810 Cardiomyopathy in other diseases classified elsewhere (Chronic) I43 Abnormal echocardiogram (Inactive) R93.1 Abnormal myocardial perfusion study (Inactive) R94.39 Blurred vision (Chronic) H53.8 Chest tightness (Inactive) R07.89 Ventricular tachycardia (Chronic) I47.2 Atherosclerotic heart disease of [place] coronary artery without angina pectoris (Chronic) I25.10 Acute TN, subendocardial, subsequent episode of care I21.4 - Past Surgical History Surgical History: Past Surgical History (Last Reviewed 11/08/19 @ 11:[address] Rigoberto Rosario, DO) History of herniorrhaphy Z98.890, Z87.19 Presence of coronary angioplasty implant and graft Onset Date: ~05/22/19 Z95.5 PTCA/YUDY to LCX and PTCA/YUDY to mid and distal RCA 06/22/11; Successful PTCA/YUDY to proximal/mid PL branch of RCA with a 3.0 x 38 Promus Synergy, post dilated proximally with a 3.5 x 8 NC Balloon; 75%-->0%, no dissection. 05/22/19 Surgical History: herniorrhaphy, - - Family History Summary Family History: Family History (Last Reviewed 11/08/19 @ 11:[address] Rigoberto Rosario DO) Father Myocardial infarction, Onset Age: 70 CAD (coronary artery disease) Hx of CABG Mother CAD (coronary artery disease) Diabetes Pacemaker Brother Myocardial infarction age of onset 40s Sister Myocardial infarction, Onset Age: 62 Rheumatic fever Son Hypertension Diabetes Daughter Diabetes Social History - Smoking History Smoking Status: Heavy Smoker (>10/day) Hx Tobacco Use: Yes Hx Smoking Exposure: Yes - Alcohol Use Alcohol Usage: No - Substance Abuse Hx Substance Use: No - Occupation Occupation (List type of work in comments):: Retired - Hobbies, Recreation, Social Activities Hobbies: Other - COMPUTER GAMES, BOARD GAMES, PAINTING MINATURE FIGURINES. Recreational Activities: I am able to engage in most, but not all activities Social Environment - Status Marital Status: - Current Living Arrangements Living Environment:: Alone - Children How many children do you have?: 3 - FROM PREVIOUS MARRIAGE Do any of your children live nearby?: Yes - [place], [place], [place]. - Safety Do you feel safe in your surroundings?: Yes - IN THE HOME, BUT NOT IN THE NEIGHBORHOOD. - Assistance Do you need any assistance at home?: NONE Review of Systems - Review of Systems Hints: Right click = Denies ([place]). Left click = Reports ([place]) Review of Present Symptoms: Reports: Shortness of Breath with Exertion, Fatigue, Heart Arrhythmia/Irregularities - PREMATURE VENTRICULAR CONTRACTIONS and LEFT BUNDLE BRANCH BLOCK, Appetite - Normal, Appetite - Special Diet - LOW FAT/LOW CHOLESTEROL, Sleep - Normal. Denies: Shortness of Breath at Rest, Angina, Dizziness/Lightheadedness, Sexual Changes - Pain Is Patient Pain Free?: Yes Pain Location: none Pain Level: 0/10 Risk Factor Assessment - Chief Complaint Chief Complaint: S/P PCI INTERVENTIONS IN MAY 2019 AND RECENT ON 11/10/2019. PATIENT ORIGINALLY WAS REFERRED TO CARDIAC REHAB BACK IN MAY BUT DECLINED AT THAT TIME. THE PATIENT IS NOW INTERESTED IN CR FOLLOWING HIS RECENT PCI INTERVENTION. - Vital Signs Temperature: 98.1 F Respiratory Rate: 18 Pulse Ox: 95 Blood Pressure: 114/59 Nailbeds:: PINK - Pulse Pulse Rate: 80 Pulse Rhythm: Regular - Hypertension Blood Pressure Sitting - Left Arm: 114/59 - Stress Stress: Recent - LOSS OF HIS SPOUSE AND RECENT HEALTH ISSUES, DEALT A LITTLE BIT WITH DEPRESSION AND LOSS OF INTEREST IN ACTIVITIES - Blood Cholesterol/Lipids Total Cholesterol (mg/dL) Goal = less than 200 mg/dL: 173 HDL Cholesterol (mg/dL) Goal = less than 40 mg/dL: 29 LDL Cholesterol (mg/dL) Goal = less than 70 mg/dL: 103 Triglycerides (mg/dL) Goal = less than 150 mg/dL: 203 - Diabetes Diabetic History: Type II, Medication Dependent - Obesity Height: 6 ft Weight:: 200 lb Weight in Pounds: 200.0 lbs Weight Source: Stated by Patient Body Mass Index (BMI): 27.1 Nutritional Referral for Obesity: No - Physical Inactivity Physical Inactivity: None - Risk Stratification Risk Guidelines: Lowest Risk: Risk Factor for Diabetes, Risk Factor for Hypertension, Moderate Risk: Risk Factor for Dyslipidemia, Risk Factor for Obesity, Risk Factor for Depression, Highest Risk: Risk Factor for Smoking, Risk Factor for Sedentary Lifestyle - For Smoking Smoking Risk Guidelines: Smoking Low Risk: None or quit greater than 6 months ago. Smoking Moderate Risk: Smoker or quit 6 months or less ago. Smoking High Risk: Smoker - For Dyslipidemia Dyslipidemia Risk Guidelines: Low Risk: Moderate Risk: High Risk: 15-25% fat 25.1-29% fat >/= 30% fat. <7% sat fat 7-9% sat fat >9% sat fat. <150 mg chol 150-299 mg chol >/= 300 mg chol. LDL <100 LDL 100-129 LDL >/= 130. Chol/HDL ratio <5.0 Chol/HDL ratio 5.0-6.0 Chol/HDL ratio >6.0. Triglycerides <100 Triglycerides 100-149 Triglycerides >/= 150 - For Diabetes Mellitus Diabetes Risk Guidelines: Diabetes Low Risk: HgA1c <6.5% and/or FBG <120. Diabetes Moderate Risk: HgA1c 6.6-7.9% and/or FBG 120-180. Diabetes High Risk: HgA1c >/= 8% and/or FBG >180 - For Obesity/Overweight Obesity/Overweight Risk Guidelines: Obesity Low Risk: BMI <25.0. Obesity Moderate Risk: BMI 25-29.9. Obesity High Risk: BMI >/= 30.0 - For Hypertension Hypertension Risk Guidelines: Hypertension Low Risk: Systolic <120 and Diastolic <80. Hypertension Moderate Risk: Systolic 120-139 and Diastolic 80-89. Hypertension High Risk: Systolic >/= 140 and Lizbeth stolic >/= 90 - For Sedentary Lifestyle Sedentary Lifestyle Risk Guidelines: Sedentary Lifestyle Low Risk: >/= 1,500 kcal/week. Sedentary Lifestyle Moderate Risk: 700-1,499 kcal/week. Sedentary Lifestyle High Risk: < 700 kcal/week - For Depression Depression Risk Guidelines: Depression Low Risk: Not clinically depressed. Depression Moderate Risk: Mildly depressed. Depression High Risk: Clinically depressed - Family History Family History: Family History (Last Reviewed 11/08/19 @ 11:[address] Rigoberto Rosario, DO) Father Myocardial infarction, Onset Age: 70 CAD (coronary artery disease) Hx of CABG Mother CAD (coronary artery disease) Diabetes Pacemaker Brother Myocardial infarction Sister Myocardial infarction, Onset Age: 62 Rheumatic fever Son Hypertension Diabetes Daughter Diabetes Motivation - Motivation to Participate On a scale of 1 to 10, how prepared are you to commit to attending program?: 10 What do you see as barriers to successfully being able to complete the program?: INABILITY TO DRIVE MYSELF RIGHT NOW, RELYING ON GRANDSON TO DRIVE ME AROUND What do you see as the benefits of succesfully completing the program? In other words, what do you hope to get out of participating in the program?: HEALTHIER Are there issues you are dealing with that will interfere with completing the program?: BLURRED VISION/INABILITY TO DRIVE Do you have a spouse or signficant other, family or friends who will help support you to complete the program?: YES
[2019-11-17 10:58] VITALS: BP 114/59; BMI 27.1
[2019-11-17 11:07] VITALS: BP 114/59; PULSE 80; RESP 18; TEMP 36.7; O2SAT 95; BMI 27.1
== END ==
PROVIDERS: PCP Family Medicine Geriatric Medicine; Referring Provider Internal Medicine Cardiovascular Disease; Visit Provider Internal Medicine Cardiovascular Disease
DX: I10 Essential (primary) hypertension (principal); E78.00 Pure hypercholesterolemia, unspecified; E11.9 Type 2 diabetes mellitus without complications

== ENCOUNTER 2019-11-25 15:22 | Outpatient (RCR) | payer MEDICARE, OTHER, SELFPAY ==
[2019-11-17 10:58] VITALS: BMI 27.1
[2019-11-17 11:07] VITALS: BMI 27.1
== END 2019-12-08 23:59 ==
LOC: DC 15:22
PROVIDERS: PCP Family Medicine Geriatric Medicine; Visit Provider Internal Medicine Cardiovascular Disease
DX: Z71.3 Dietary counseling and surveillance (principal); E11.9 Type 2 diabetes mellitus without complications; I10 Essential (primary) hypertension; E78.00 Pure hypercholesterolemia, unspecified
CPT/HCPCS: G0108

== ENCOUNTER 2019-12-07 14:15 | Outpatient (RCR) | payer MEDICARE, OTHER, SELFPAY ==
[2019-11-17 10:58] VITALS: BMI 27.1
[2019-11-17 11:07] VITALS: BMI 27.1
== END 2019-12-08 23:59 ==
LOC: CR 14:15
PROVIDERS: PCP Family Medicine Geriatric Medicine; Referring Provider Internal Medicine Cardiovascular Disease; Visit Provider Internal Medicine Cardiovascular Disease
DX: Z71.3 Dietary counseling and surveillance (principal); Z95.5 Presence of coronary angioplasty implant and graft; E11.9 Type 2 diabetes mellitus without complications; I10 Essential (primary) hypertension; E78.00 Pure hypercholesterolemia, unspecified
CPT/HCPCS: 93798; G0108

== ENCOUNTER → 2019-12-10 11:31 | Outpatient (CLI) | payer MEDICARE, OTHER, SELFPAY ==
[2019-11-17 10:58] VITALS: BMI 27.1
[2019-11-26 15:27] VITALS: BMI 27.6
[2019-12-10 12:44] LABS: Albumin, Serum 3.8 g/dL (3.2-5.0); BUN 63 mg/dL (7-18); Calcium,Total 8.8 mg/dL (8.5-10.1); Chloride 108 mmol/L (98-107); Creatinine, Serum 2.17 mg/dL (0.70-1.30); EST Glomerular Filtration Rate 32 mL/min (>60); Est Glom Filt Rate - Afr Amer 39 mL/min (>60); Glucose 155 mg/dL (74-106); Phosphorus 3.3 mg/dL (2.5-4.9); Potassium 5.2 mmol/L (3.5-5.1); Sodium Level 140 mmol/L (136-145)
== END ==
PROVIDERS: PCP Family Medicine Geriatric Medicine; Visit Provider Internal Medicine Nephrology
DX: N17.9 Acute kidney failure, unspecified (principal)
CPT/HCPCS: 36415; 80069

== ENCOUNTER 2019-12-30 15:00 | Outpatient (RCR) | payer MEDICARE, OTHER, SELFPAY ==
[2019-11-17 10:58] VITALS: BMI 27.1
[2019-11-26 15:27] VITALS: BMI 27.6
== END 2020-01-08 23:59 ==
LOC: DC 15:00
PROVIDERS: PCP Family Medicine Geriatric Medicine; Visit Provider Internal Medicine Cardiovascular Disease
DX: Z71.3 Dietary counseling and surveillance (principal); E11.9 Type 2 diabetes mellitus without complications; I10 Essential (primary) hypertension; E78.00 Pure hypercholesterolemia, unspecified
CPT/HCPCS: 93798; 97802; G0108

== ENCOUNTER 2020-01-08 14:15 | Outpatient (RCR) | payer MEDICARE, OTHER, SELFPAY ==
[2019-11-17 10:58] VITALS: BMI 27.1
[2019-11-26 15:27] VITALS: BMI 27.6
--- NOTE | 2019-12-16 14:04 | CR.ITP_ITS ---
Diagnosis - General Information Admitting Diagnosis: PCI W/Stent Personal Learning Style:: Audio/Visual, Written Barriers to Learning: Hearing Impairment, Vision Impairment Stage of change r/t lifestyle modifications:: Action Gave educational material for:: Treating Heart Disease, Emotions & Heart Disease, Stress Management & Relaxation, Sleep Disorders & Heart Disease, How The Heart Works, What it means to have Heart Disease, How Coronary Artery Disease is Diagnosed, Heart Procedures, What Heart Medications Do, Risk Factors & Modifications, Living an Active Life, Nutrition - Education/Goals Cardiac Rehabilitation Goals: 1. Maintain the individual as the primary focus of care. 2. To improve the patient's quality of life. 3. Identification of cardiac risk factors and provide cardiac risk factor management. 4. Enhance the psychosocial status of the patient. 5. Reconditioning enough to allow the patient to resume customary activities. 6. Control symptoms of cardiac disease Scale for measuring improvement of personal goals: Enter appropriate number in Comments. 2 = Unchanged. 3 = Slightly Better. 4 = Moderate Improvement. 5 = Met my Goal - Diagnosis & Disease Process Outcomes/Goals: Pt IDs own risk factors & lifestyle modifications by Session 10, Verbalizes symptoms of angina & response by session 3., Pt independently manages, Other Additional Outcomes/Goals: Plan/Interventions: Assist Pt to ID & engage in lifestyle modification to reduce CVD risk, Instruct on individual risk factors, Review symptoms of angina & emergency actions, Review secondary diagnosis & identify educational needs., Other see comment 30 day Reassessments:: Progressing 30 day Reassessments:: Progressing 30 day Reassessments:: Progressing 30 day Reassessments:: Progressing Final Reassessments:: Progressing - Safety Referral to Physical Therapy: No Referral to [facility] Case Management: No Fall Risk Assessed:: Yes Assistive Devices:: None Exercise - 30-day Assessment - Visit Date of Eval: 12/16/19 Session #:: 8 - Physician Prescribed Exercise Modalities: Treadmill, Airdyne, NuStep Intensity: 60-80% of age predicted maximum heart rate reserve Current METSs:: 3 Target Heart Rate:: 99-129 Current RPE:: 12 Maximum Excercise HR:: 91 Resting Blood Pressure: 108/48 Maximum Exercise Blood Pressure: 124/72 EKG Type: SR - Outcomes & Goals Goals:: Verbalizes understanding of THR, RPE & goal METS by session 6, Documents in home exercise log/reports 30 min aerobic 5 day/wk by DC, Demonstrates accurate pulse taking by DC, Other additional outcome/goals: see below - Intervention & Plan Exercise Program Goals: Instruct on personal THR & RPE, Instruct on MET level & personal MET goal, Show patient to take own pulse /validate performance until accurate, Instruct on home exercise, Other additional plan/int - 30-day Reassessments 30 day Reassessments:: Progressing - Physical Activity Home Exercise Physical Activity - Home Exercise: Safe Exercise, Warm-up, Self-monitoring, Cool-Down, Home Exercise > 30 min Daily, Sitting Time <3 hours/daily - Outcomes & Goals Outcomes/Goals: Demonstrates correct Warm-up/exercise Cool-Down (S3) if = 2.5 METs, Verbalizes symptoms of exercise intolerance by Session 3 (S3), Demonstrate safe equipment use (S3) & follows exercise prescrition (6), Other: See below - Intervention & Plan Plan/Intervention: Instruct warm-up & cool-down if exercising at > 2 METs, Instruct on symptoms of exercise intolerance & actions to take, Instruct & monitor on saf, Assess intial functional capacity & safety risk, Other See below - 30-day Reassessments 30 day Reassessments:: Progressing Nutrition - 30-Day Assessment - Program Goals Nutrition Program Goals: LDL <100 optimal. 100 - 129 Near optimal. 130 - 159 Borderline High. 160 - 189 High. Total Cholesterol <200 desirable. 200 - 239 Borderline High. >/= 240 High. HDL < 40 Low >/=60 High. Triglycerides <150 desirable. <199 optimal. VlDL 5 - 40. HgbA1C <7%. BMI <25 Patient has diagnosis of Hyperlipidemia (ICD E78)?: Yes - Visit Date of Assessment:: 12/16/19 Session #:: 8 - Cholesterol/Lipids Determine presence & major risk factors that modify LDL goal: Cigarette smoking, Hypertension or hypertensive medication, Low HDL cholesterol <40 mg/dL*, Family history of premature CHD in Male < 55 years: female <65 yearsFa, Age men > 45 years; women >/= 55 years Outcomes/Goals: Pt IDs own risk factors & lifestyle modifications by Session 10, Verbalizes symptoms of angina & response by session 3., Pt independently manages, Other Additional Outcomes/Goals: Intervention/Plan: Advocate for lipid panel cholesterol medication if applicable, Instruct on personal lipid levels & lipid goals/NCEP guidelines, Instruct on cholesterol, Other additional plan/int Referral to dietitian:: Yes 30-day Reassessments:: Progressing - Diabetes (Other Core Measures) Diabetes Type: Diagnosis Type II ICD-10 E11 Insulin dependent injection/pump?: No Non-Insulin Dependent?: Yes Do you monitor your blood sugar at home?: Yes Referral to Diabetic Clinic:: Yes Outcomes/Goals:: Able to state symptoms of, Able to state, Able to state, Other additional Intervention/Plan:: Instruct on, Refer to, Instruct on, Other 30-day Reassessments:: Progressing - Weight Mgt (Other Care) Height: 6 ft Weight:: 91.852 kg BMI: 27.4 Diagnosis Overweight/Obesity BMI> 30% ICD-10 E66: No Diagnosis High BMI/Morbid Obesity BMI> 35% ICD-10 Z68: No Outcomes/Goals: Pt sets, maintains & shows weight loss goal & trend during rehab, Other additional outcomes/goals Intervention/Plan: Instruct on ideal BMI & set weight loss goal w/patient, Assist pt to ID & incorporate diet changes for weight loss by S9, Refer to Structured Weight Loss program as appropriate, Encourage goal of using 250- 300dcal per session for weight loss, Other additional plan/interventions - Healthy Eating Habits Will attend diet classes:: Yes 30-day Reassessments:: Progressing Medical- 30-Day Assessment - Visit Date of Eval: 12/16/19 Session #:: 8 - Medication Compliance Preventative Medication(s):: Aspirin, Clopidogrel/P2Y12 inhibit, Eliquis H/O mental health issues: depression, anxiety, or addiction?: Yes Doesn?t believe in the benefits of treatment?: No Believes medications are unnecessary or harmful?: No Has a concern about medication side effects?: No Expresses concern over the cost of medications?: No Outcomes/Goals: Verbalizes medications,desired effect & common side effects @ DC, Pt self-reports following medication regimen, Keeps card in wallet w/medications listed by DC, Other additional outcome/goals: Interventions/plans: Instruct on medication effects & side effects, Review medication list w/patient every two weeks, Instruct importance of taking meds as ordered & assist problem solving, Other additional 30-day Reassessments:: Progressing - Tobacco Use Tobacco Use: Cigarettes How many cigarettes do you smoke per day?: 10 Years Smokin Do you use smokeless tobacco?: No Interventions/plan: Instruct on effects of smoking & provide smoking cessation resource, Assist pt to set quit date & provide encouragement, Assist pt to develop strategies to achieve/maintain quit date, Assist pt w/nicotine replacement & medication for cessation success, Other additional plan/ interventions 30-day Reassessments:: Progressing - Hypertension Hypertension Diagnosis:: Hypertension ICD-10 I10 Resting Blood Pressure:: 108/48 [place] [employer] Hypertension Guidelines: [place] [employer] Hypertension Guidelines. Normal BP Less than 120/80. Elevated BP 120/80. Hypertension Stage 1: BP 130-139/80-89. Hypertesnion Stage 2: BP 140 or higher/90 or higher. Hypertension Crisis: BP higher than 180/120 Peak Exercise Blood Pressure:: 124/72 Outcomes/Goals: Able to verbalize/achieve optimal blood pressure <130/80, Incorporates diet changes & exercise for blood pressure control by DC, Other additional outcomes/goals Interventions/plan: Instruct on optimal blood pressure, hypertension & medications, Instruct on effects of sodium, alcohol, stress, exercise &hypertension, Other additional plan/interventions 30 day Reassessments:: Progressing - Tobacco Cessation Referral Smoking Cessation Referral:: No Individual Education/Counseling:: Yes Education Schedule Given:: Yes Psychosocial - 30-Day Assess - VIsit Date of Eval: 12/16/19 Session #:: 8 History of previous Mental disease:: Yes History of Emotional Disorders: Depression - Target Goals Target Goals: Assess presence or absence of depression. Using a valid screening tool, maximizes coping skills. Positive support system - Psychosocial Test Tool Used:: [facility] QOL Cardiac, PHQ-9 Questionnaire phq-9 Severity: Severity. 1-4 Minimal Depression. 5-9 Mild Depression. 10-14 Moderate Depression. 15-19 Moderately Sever Depression. 20-27 Severe Depression. Rule: - Intervention/Plan: See List Interventions/Plan:: Assess stressors,coping strategies & signs of derpression on admission, Instruct/assist pt to develop coping & personal stress Mgt strategies, Refer to Behavioral Health if appropriate, Refer to Physician if appropriate, Instruct patient to recognize signs & symptoms of depression, Instruct patient to recog, Other additional plan/intervention - 30-day Reassessments: 30 day Reassessments:: Progressing Patient Health Questionnaire 30-Day Re-eval Assessment 1. Little interest or pleasure in doing things: Nearly every day 2. Feeling down, depressed, or hopeless: Nearly every day 3. Trouble falling or staying asleep, or sleeping too much: Several days 4. Feeling tired or having little energy: More than half the days 5. Poor appetite or overeating: More than half the days 6. Feeling bad about yourself -- or that you are a failure or have let yourself or your family down: Not at all 7. Trouble concentrating on things, such as reading the newspaper or watching television: Several days 8. Moving or speaking so slowly that other people could have noticed. Or the opposite - being so fidgety or restless that you have been moving around a lot more than usual: Not at all 9. Thoughts that you would be better off , or of hurting yourself in some way: Not at all How difficult have these problems made it for you to do your work, take care of things at home, or get along with other people?: Very difficult Total Score: 12 Self-Efficacy 30-Day Re-eval Assessment We would like to know how confident you are in doing certain activities. Please select your confidence level for:: Select your confidence level for the following using the scale 1-10 where 1 is not at all confident and 10 is totally confident. Your score is the average of all 6 responses. Fatigue: How confident are you that you can keep the fatigue caused by your disease from interfering with the things you want to do? Select Number: 3 Physical Discomfort or Pain: How confident are you that you can keep the physical discomfort or pain of your disease from interfering with the things you want to do? Select Number: 2 Emotional Distress: How confident are you that you can keep the emotional distress caused by your disease from interfering with the things you want to do? Select Number: 2 Other Symptoms or Health Problems: How confident are you that you can keep other symptoms or health problems from interfering with the things you want to do? Select Number: 2 Different Tasks and Activities: How confident are you that you can do the different tasks and activities needed to manage your health condition so as to reduce your need to see a doctor? Select Number: 5 Medication: How confident are you that you can do things other than just taking medication to reduce how much your illness affects your everyday life? Select Number: 5 Total Score:: 3
[2019-12-16 14:15] VITALS: BP 108/48; BP 124/72; BMI 27.4
== END 2020-01-08 23:59 ==
LOC: CR 14:15
PROVIDERS: PCP Family Medicine Geriatric Medicine; Referring Provider Internal Medicine Cardiovascular Disease; Visit Provider Internal Medicine Cardiovascular Disease
DX: Z95.5 Presence of coronary angioplasty implant and graft (principal)
CPT/HCPCS: 93798

== ENCOUNTER 2020-01-13 15:29 | Outpatient (RCR) | payer MEDICARE, OTHER, SELFPAY ==
[2019-11-26 15:27] VITALS: BMI 27.6
[2019-12-16 14:15] VITALS: BMI 27.4
== END 2020-02-08 23:59 ==
LOC: DC 15:29
PROVIDERS: PCP Family Medicine Geriatric Medicine; Visit Provider Internal Medicine Cardiovascular Disease
DX: Z71.3 Dietary counseling and surveillance (principal); E11.9 Type 2 diabetes mellitus without complications; I10 Essential (primary) hypertension; E78.00 Pure hypercholesterolemia, unspecified
CPT/HCPCS: 93798; 97803

== ENCOUNTER 2020-02-08 14:15 | Outpatient (RCR) | payer MEDICARE, OTHER, SELFPAY ==
[2019-11-26 15:27] VITALS: BMI 27.6
[2019-12-16 14:15] VITALS: BMI 27.4
[2020-01-09 00:33] VITALS: BP 108/48; BP 124/72
[2020-01-11 12:16] LABS: Absolute Lymphocyte Count 2.11 X10^3/uL (0.83-4.51); Absolute Neutrophil Count 5.7 X10^3/uL (2.0-7.7); Basophil# 0.05 X10^3/uL; Basophil% 0.5 % (0-1); Eosinophil# 0.35 X10^3/uL; Eosinophils% 3.7 % (0-5); Hematocrit 39.3 % (40-54); Hemoglobin 12.7 g/dL (13.0-16.5); Lymphocyte # 2.11 X10^3/ul (4.0); Lymphocyte % 22.4 % (19-41); Mean Corp Hgb Conc 32.3 g/dL (32-36); Mean Corpuscular Hgb 28.9 pg (27.0-32.0); Mean Corpuscular Volume 89.5 fL (80-94); Mean Platelet Vol. 10.3 fl (6.2-12.0); Monocyte# 1.17 X10^3/uL; Monocyte% 12.4 % (0-10); NRBC Flagged by Analyzer 0 % (0-5); Neutrophil # 5.68 X10^3/uL (2.7-7.7); Neutrophil % 60.6 % (47-70); Platelet Count 254 K/mm3 (150-450); RBC Distribution Width CV 13.8 % (11.6-14.6); RBC Distribution Width SD 45.1 fl (35.1-43.9); Red Blood Count 4.39 M/mm3 (4.6-6.2); White Blood Count 9.4 K/mm3 (4.4-11.0)
[2020-01-11 12:31] LABS: Vitamin D,25 Hydroxy 18.5 ng/mL
[2020-01-11 12:46] LABS: ALB/GLOB Ratio 1.2 RATIO (0.9-2.4); AST(SGOT) 8 U/L (15-37); Alanine Aminotransfer ALT/SGPT 19 U/L (16-61); Alkaline Phosphatase 70 U/L (45-117); Anion Gap 7 (5-15); BUN 31 mg/dL (7-18); BUN/Creat Ratio 16.9 RATIO (10-20); Calcium,Total 8.7 mg/dL (8.5-10.1); Chloride 107 mmol/L (98-107); Creatinine, Serum 1.83 mg/dL (0.70-1.30); EST Glomerular Filtration Rate 39 mL/min (>60); Est Glom Filt Rate - Afr Amer 48 mL/min (>60); Globulin 3.4 g/dL (2.2-4.2); Glucose 123 mg/dL (74-106); Protein, Total 7.4 g/dL (6.4-8.2); Sodium Level 141 mmol/L (136-145); Thyroid Stim Hormone (TSH) 1.25 uIU/mL (0.358-3.74)
--- NOTE | 2020-01-15 08:19 | CR.ITP_ITS ---
Exercise - 60-day Assessment - Visit Date of Eval: 01/15/20 Session #:: 21 - Physician Prescribed Exercise Modalities: Treadmill, Airdyne, NuStep Frequency: 3x/week for 12 weeks [36 sessions] Intensity: 60-80% of age predicted maximum heart rate reserve Current METSs:: 3.5 Target Heart Rate:: 99-129 Current RPE:: 11-12 Maximum Excercise HR:: 86 Resting Blood Pressure: 132/58 Maximum Exercise Blood Pressure: 150/60 EKG Type: NSR WITH RATE DEPENDENT BBB RARE PVCs. - Outcomes & Goals Goals:: Verbalizes understanding of THR, RPE & goal METS by session 6, Documents in home exercise log/reports 30 min aerobic 5 day/wk by DC, Demonstrates accurate pulse taking by DC - Intervention & Plan Exercise Program Goals: Instruct on personal THR & RPE, Instruct on MET level & personal MET goal, Show patient to take own pulse /validate performance until accurate, Instruct on home exercise - 30-day Reassessments 30 day Reassessments:: Progressing - Physical Activity Home Exercise Physical Activity - Home Exercise: Safe Exercise, Warm-up, Self-monitoring, Cool-Down, Home Exercise > 30 min Daily, Sitting Time <3 hours/daily - Outcomes & Goals Outcomes/Goals: Demonstrates correct Warm-up/exercise Cool-Down (S3) if = 2.5 METs, Verbalizes symptoms of exercise intolerance by Session 3 (S3), Demonstrate safe equipment use (S3) & follows exercise prescrition (6) - Intervention & Plan Plan/Intervention: Instruct warm-up & cool-down if exercising at > 2 METs, Instruct on symptoms of exercise intolerance & actions to take, Instruct & monitor on saf, Assess intial functional capacity & safety risk - 30-day Reassessments 30 day Reassessments:: Progressing Nutrition - 60-Day Assessment - Program Goals Nutrition Program Goals: LDL <100 optimal. 100 - 129 Near optimal. 130 - 159 Borderline High. 160 - 189 High. Total Cholesterol <200 desirable. 200 - 239 Borderline High. >/= 240 High. HDL < 40 Low >/=60 High. Triglycerides <150 desirable. <199 optimal. VlDL 5 - 40. HgbA1C <7%. BMI <25 Patient has diagnosis of Hyperlipidemia (ICD E78)?: Yes - Visit Date of Assessment:: 01/15/20 Session #:: 21 - Cholesterol/Lipids Determine presence & major risk factors that modify LDL goal: Cigarette smoking, Hypertension or hypertensive medication, Family history of premature CHD in Male < 55 years: female <65 yearsFa, Age men > 45 years; women >/= 55 years Outcomes/Goals: Pt IDs own risk factors & lifestyle modifications by Session 10, Verbalizes symptoms of angina & response by session 3., Pt independently manages Intervention/Plan: Instruct on personal lipid levels & lipid goals/NCEP guidelines, Instruct on cholesterol Referral to dietitian:: No - SEEN NUTRITION SERVICES 11/25/2019 30-day Reassessments:: Progressing - Diabetes (Other Core Measures) Diabetes Type: Diagnosis Type II ICD-10 E11 Fasting blood glucose:: 139 Insulin dependent injection/pump?: No Non-Insulin Dependent?: Yes - METFORMIN Do you monitor your blood sugar at home?: Yes Outcomes/Goals:: Able to state symptoms of, Able to state, Able to state Intervention/Plan:: Instruct on, Instruct on 30-day Reassessments:: Progressing - Weight Mgt (Other Care) Not Applicable: Yes Height: 6 ft Weight:: 205 lb 8 oz BMI: 27.8 Diagnosis Overweight/Obesity BMI> 30% ICD-10 E66: No Diagnosis High BMI/Morbid Obesity BMI> 35% ICD-10 Z68: No Outcomes/Goals: Pt sets, maintains & shows weight loss goal & trend during rehab Intervention/Plan: Instruct on ideal BMI & set weight loss goal w/patient, Assist pt to ID & incorporate diet changes for weight loss by S9, Encourage goal of using 250-300dcal per session for weight loss 30 day Reassessments:: Progressing - Healthy Eating Habits Will attend diet classes:: Yes Outcomes/Goals:: Consume diet rich in vegs,fruits,whole grain/high fiber,fish,lean meat, Limit sat/trans fats,cholesterol & added salts & sugars Intervention/Plan:: Assess current eating habits 30-day Reassessments:: Progressing - Education Gave educational materials for:: Signs & symptoms of hypoglycemia, Signs & symptoms of hyperglycemia, Relate diabetes to coronary artery disease, Healthy eating Medical- 60-Day Assessment - Visit Date of Eval: 01/15/20 Session #:: 21 - Medication Compliance Preventative Medication(s):: Aspirin, Clopidogrel/P2Y12 inhibit, Statin/lipid, Beta shanna H/O mental health issues: depression, anxiety, or addiction?: No Doesn?t believe in the benefits of treatment?: No Believes medications are unnecessary or harmful?: No Has a concern about medication side effects?: No Expresses concern over the cost of medications?: No Outcomes/Goals: Verbalizes medications,desired effect & common side effects @ DC, Pt self-reports following medication regimen, Keeps card in wallet w/medications listed by DC Interventions/plans: Instruct on medication effects & side effects, Review medication list w/patient every two weeks, Instruct importance of taking meds as ordered & assist problem solving 30-day Reassessments:: Progressing - Tobacco Use Tobacco Use: Non-smoker - RECENTLY QUIT How long ago did you quit using tobacco products?: Greater than or equal to 6 months ago Do you use smokeless tobacco?: No Outcomes/Goals: Identify aids/strategies for achieving smoking cessation by session 6 Interventions/plan: Instruct on effects of smoking & provide smoking cessation resource 30-day Reassessments:: Met - Hypertension Hypertension Diagnosis:: Hypertension ICD-10 I10 Resting Blood Pressure:: 132/58 - UNCONTROLLED W/MEDS [place] [employer] Hypertension Guidelines: [place] [employer] Hypertension Guidelines. Normal BP Less than 120/80. Elevated BP 120/80. Hypertension Stage 1: BP 130-139/80-89. Hypertesnion Stage 2: BP 140 or h igher/90 or higher. Hypertension Crisis: BP higher than 180/120 Peak Exercise Blood Pressure:: 150/60 Outcomes/Goals: Able to verbalize/achieve optimal blood pressure <130/80, Incorporates diet changes & exercise for blood pressure control by DC Interventions/plan: Instruct on optimal blood pressure, hypertension & medicat ions, Instruct on effects of sodium, alcohol, stress, exercise &hypertension 30 day Reassessments:: Progressing - Tobacco Cessation Referral Smoking Cessation Referral:: No Individual Education/Counseling:: No Education Schedule Given:: Yes Psychosocial - 60-Day Assess - VIsit Date of Eval: 01/15/20 Session #:: 21 Not Applicable: Yes History of previous Mental disease:: No - Target Goals Target Goals: Assess presence or absence of depression. Using a valid screening tool, maximizes coping skills. Positive support system - Psychosocial Test Tool Used:: Fritz Puente QOL Cardiac, PHQ-9 Questionnaire phq-9 Severity: Severity. 1-4 Minimal Depression. 5-9 Mild Depression. 10-14 Moderate Depression. 15-19 Moderately Sever Depression. 20-27 Severe Depression. Rule: See PHQ-9 Score: 12 - Referral to Behavioral Health PS - Interventions: Yes Referral to Physician if PHQ-9 if score is 5-9: - REFER TO PCP, Yes Attend Stress Management Classes, No Referral to Behavioral Health if PHQ-9 score >9:, No Referral to [facility] - Outcomes/Goals: See list Psychosocial Outcomes/Goals:: ID's personal stressors & 2 strategies to manage stress by discharge - Intervention/Plan: See List Interventions/Plan:: Assess stressors,coping strategies & signs of derpression on admission, Instruct/assist pt to develop coping & personal stress Mgt strategies, Instruct patient to recognize signs & symptoms of depression, Instruct patient to recog - 30-day Reassessments: 30 day Reassessments:: Progressing Patient Health Questionnaire 60-Day Re-eval Assessment 1. Little interest or pleasure in doing things: Nearly every day 2. Feeling down, depressed, or hopeless: Nearly every day 3. Trouble falling or staying asleep, or sleeping too much: Several days 4. Feeling tired or having little energy: More than half the days 5. Poor appetite or overeating: More than half the days 6. Feeling bad about yourself -- or that you are a failure or have let yourself or your family down: Not at all 7. Trouble concentrating on things, such as reading the newspaper or watching television: Several days 8. Moving or speaking so slowly that other people could have noticed. Or the opposite - being so fidgety or restless that you have been moving around a lot more than usual: Not at all 9. Thoughts that you would be better off , or of hurting yourself in some way: Not at all How difficult have these problems made it for you to do your work, take care of things at home, or get along with other people?: Somewhat difficult Total Score: 12 Self-Efficacy 60-Day Re-eval Assessment We would like to know how confident you are in doing certain activities. Please select your confidence level for:: Select your confidence level for the following using the scale 1-10 where 1 is not at all confident and 10 is totally confident. Your score is the average of all 6 responses. Fatigue: How confident are you that you can keep the fatigue caused by your disease from interfering with the things you want to do? Select Number: 5 Physical Discomfort or Pain: How confident are you that you can keep the physical discomfort or pain of your disease from interfering with the things you want to do? Select Number: 4 Emotional Distress: How confident are you that you can keep the emotional distress caused by your disease from interfering with the things you want to do? Select Number: 4 Other Symptoms or Health Problems: How confident are you that you can keep other symptoms or health problems from interfering with the things you want to do? Select Number: 4 Different Tasks and Activities: How confident are you that you can do the different tasks and activities needed to manage your health condition so as to reduce your need to see a doctor? Select Number: 7 Medication: How confident are you that you can do things other than just taking medication to reduce how much your illness affects your everyday life? Select Number: 6 Total Score:: 5
[2020-01-15 08:28] VITALS: BP 132/58; BP 150/60; BMI 27.8
== END 2020-02-08 23:59 ==
LOC: CR 14:15
PROVIDERS: PCP Family Medicine Geriatric Medicine; Referring Provider Internal Medicine Cardiovascular Disease; Visit Provider Internal Medicine Cardiovascular Disease
DX: Z95.5 Presence of coronary angioplasty implant and graft (principal); I10 Essential (primary) hypertension; E55.9 Vitamin D deficiency, unspecified
CPT/HCPCS: 36415; 80053; 82306; 84443; 85025; 93798

== ENCOUNTER → 2020-02-11 11:30 | Outpatient (CLI) | payer MEDICARE, OTHER, SELFPAY ==
[2019-11-26 15:27] VITALS: BMI 27.6
[2020-01-15 08:28] VITALS: BMI 27.8
[2020-02-11 12:53] LABS: Albumin, Serum 3.8 g/dL (3.2-5.0); BUN 23 mg/dL (7-18); BUN/Creat Ratio 14.9 RATIO (10-20); Calcium,Total 8.5 mg/dL (8.5-10.1); Chloride 112 mmol/L (98-107); Creatinine, Serum 1.54 mg/dL (0.70-1.30); EST Glomerular Filtration Rate 48 mL/min (>60); Est Glom Filt Rate - Afr Amer 58 mL/min (>60); Glucose 135 mg/dL (74-106); Potassium 4.3 mmol/L (3.5-5.1); Sodium Level 142 mmol/L (136-145)
== END ==
PROVIDERS: PCP Family Medicine Geriatric Medicine; Visit Provider Internal Medicine Nephrology
DX: N17.9 Acute kidney failure, unspecified (principal)
CPT/HCPCS: 36415; 80069; G0109

== ENCOUNTER 2020-02-11 15:35 | Outpatient (RCR) | payer MEDICARE, OTHER, SELFPAY ==
[2019-11-26 15:27] VITALS: BMI 27.6
[2020-01-15 08:28] VITALS: BMI 27.8
== END 2020-03-09 23:59 ==
LOC: DC 15:35
PROVIDERS: PCP Family Medicine Geriatric Medicine; Visit Provider Internal Medicine Cardiovascular Disease
DX: Z71.3 Dietary counseling and surveillance (principal); E11.9 Type 2 diabetes mellitus without complications; I10 Essential (primary) hypertension; E78.00 Pure hypercholesterolemia, unspecified
CPT/HCPCS: 36415; 80069; G0109

== ENCOUNTER 2020-02-19 14:15 | Outpatient (RCR) | payer MEDICARE, OTHER, SELFPAY ==
[2019-11-26 15:27] VITALS: BMI 27.6
[2020-01-15 08:28] VITALS: BMI 27.8
[2020-02-09 00:37] VITALS: BP 132/58; BP 150/60
--- NOTE | 2020-02-18 05:47 | PCM.CR.ITP ---
Diagnosis - General Information Barriers to Learning: Vision Impairment Stage of change r/t lifestyle modifications:: Action Gave educational material for:: Treating Heart Disease, Emotions & Heart Disease, Stress Management & Relaxation, Sleep Disorders & Heart Disease, How The Heart Works, What it means to have Heart Disease, How Coronary Artery Disease is Diagnosed, Heart Procedures, What Heart Medications Do, Risk Factors & Modifications, Living an Active Life, Nutrition - Education/Goals Individual Counseling: Initial Assessment: Abnormal Cholesterol Levels, High Blood Pressure, Diabetes Cardiac Rehabilitation Goals: 1. Maintain the individual as the primary focus of care. 2. To improve the patient's quality of life. 3. Identification of cardiac risk factors and provide cardiac risk factor management. 4. Enhance the psychosocial status of the patient. 5. Reconditioning enough to allow the patient to resume customary activities. 6. Control symptoms of cardiac disease Personal Goals: Initial Assessment: Quit smoking (participate in smoking cessation - 3; cut down to 5 per day, Improve energy level, Improve muscle strength and endurance - 4, Improve diet and eating habits (eat healthier) - 5, Control risk factors (learn risk factor modification) - 5 Scale for measuring improvement of personal goals: Enter appropriate number in Comments. 2 = Unchanged. 3 = Slightly Better. 4 = Moderate Improvement. 5 = Met my Goal - Diagnosis & Disease Process Outcomes/Goals: Pt IDs own risk factors & lifestyle modifications by Session 10, Verbalizes symptoms of angina & response by session 3., Pt independently manages Plan/Interventions: Assist Pt to ID & engage in lifestyle modification to reduce CVD risk, Instruct on individual risk factors, Review symptoms of angina & emergency actions, Review secondary diagnosis & identify educational needs. 30 day Reassessments:: Progressing 30 day Reassessments:: Progressing 30 day Reassessments:: Progressing 30 day Reassessments:: Met - Safety Referral to Physical Therapy: No Referral to [facility] Case Management: No Fall Risk Assessed:: Yes Assistive Devices:: None Exercise - Final/Discharge - Visit Date of Eval: 02/18/20 Session #:: 35 - Physician Prescribed Exercise Modalities: Treadmill, Airdyne, NuStep Frequency: 3x/week for 12 weeks [36 sessions] Intensity: 60-80% of age predicted maximum heart rate reserve Current METSs:: 3.5 unchanged per patient Target Heart Rate:: 99-129 Current RPE:: 12 Maximum Excercise HR:: 90 Resting Blood Pressure: 122/68 Maximum Exercise Blood Pressure: 154/84 EKG Type: SB to sinus rhythm; BBB occas. PVCs, venticular bigeminy, trigemniny - Outcomes & Goals Goals:: Verbalizes understanding of THR, RPE & goal METS by session 6, Documents in home exercise log/reports 30 min aerobic 5 day/wk by DC, Demonstrates accurate pulse taking by DC - Intervention & Plan Exercise Program Goals: Instruct on personal THR & RPE, Instruct on MET level & personal MET goal, Show patient to take own pulse /validate performance until accurate, Instruct on home exercise - 30-day Reassessments 30 day Reassessments:: Met - Physical Activity Home Exercise Physical Activity - Home Exercise: Safe Exercise, Warm-up, Self-monitoring, Cool-Down, Home Exercise > 30 min Daily, Sitting Time <3 hours/daily - Outcomes & Goals Outcomes/Goals: Demonstrates correct Warm-up/exercise Cool-Down (S3) if = 2.5 METs, Verbalizes symptoms of exercise intolerance by Session 3 (S3), Demonstrate safe equipment use (S3) & follows exercise prescrition (6) - 30-day Reassessments 30 day Reassessments:: Met Nutrition - Final Assessment - Program Goals Nutrition Program Goals: LDL <100 optimal. 100 - 129 Near optimal. 130 - 159 Borderline High. 160 - 189 High. Total Cholesterol <200 desirable. 200 - 239 Borderline High. >/= 240 High. HDL < 40 Low >/=60 High. Triglycerides <150 desirable. <199 optimal. VlDL 5 - 40. HgbA1C <7%. BMI <25 Patient has diagnosis of Hyperlipidemia (ICD E78)?: Yes - Visit Date of Assessment:: 02/18/20 Session #:: 35 - Cholesterol/Lipids Triglycerides (mg/dL): 0 - no recent labs Determine presence & major risk factors that modify LDL goal: Cigarette smoking, Hypertension or hypertensive medication, Age men > 45 years; women >/= 55 years Outcomes/Goals: Pt IDs own risk factors & lifestyle modifications by Session 10, Verbalizes symptoms of angina & response by session 3., Pt independently manages Intervention/Plan: Instruct on personal lipid levels & lipid goals/NCEP guidelines, Instruct on cholesterol Referral to dietitian:: No - Seen Nutritional Services on 11/25/19 ar 3:30 pm. 30-day Reassessments:: Met - Diabetes (Other Core Measures) Diabetes Type: Diagnosis Type II ICD-10 E11 Fasting blood glucose:: 137 Insulin dependent injection/pump?: Yes Non-Insulin Dependent?: Yes - metformin Do you monitor your blood sugar at home?: Yes Referral to Diabetic Clinic:: No - Seen on 11/25/2019 Outcomes/Goals:: Able to state symptoms of, Able to state, Able to state Intervention/Plan:: Instruct on, Instruct on 30-day Reassessments:: Met - Weight Mgt (Other Care) Not Applicable: Yes Height: 6 ft Weight:: 207 lb BMI: 28.0 Diagnosis Overweight/Obesity BMI> 30% ICD-10 E66: No Diagnosis High BMI/Morbid Obesity BMI> 35% ICD-10 Z68: No Outcomes/Goals: Pt sets, maintains & shows weight loss goal & trend during rehab Intervention/Plan: Instruct on ideal BMI & set weight loss goal w/patient 30 day Reassessments:: Progressing - Healthy Eating Habits Will attend diet classes:: Yes Outcomes/Goals:: Consume diet rich in vegs,fruits,whole grain/high fiber,fish,lean meat, Limit sat/trans fats,cholesterol & added salts & sugars Intervention/Plan:: Assess current eating habits 30-day Reassessments:: Met - Education Gave educational materials for:: Signs & symptoms of hypoglycemia, Relate diabetes to coronary artery disease, Healthy eating Medical - Final Assessment - Visit Date of Eval: 02/18/20 Session #:: 35 - Medication Compliance Preventative Medication(s):: Aspirin, Clopidogrel/P2Y12 inhibit, Statin/lipid, Beta shanna H/O mental health issues: depression, anxiety, or addiction?: No Doesn?t believe in the benefits of treatment?: No Believes medications are unnecessary or harmful?: No Has a concern about medication side effects?: No Expresses concern over the cost of medications?: No Outcomes/Goals: Verbalizes medications,desired effect & common side effects @ DC, Pt self-reports following medication regimen, Keeps card in wallet w/medications listed by DC Interventions/plans: Instruct on medication effects & side effects, Review medication list w/patient every two weeks, Instruct importance of taking meds as ordered & assist problem solving 30-day Reassessments:: Met - Tobacco Use Tobacco Use: Cigarettes Outcomes/Goals: Identify aids/strategies for achieving smoking cessation by session 6 Interventions/plan: Instruct on effects of smoking & provide smoking cessation resource, Assist pt to set quit date & provide encouragement, Assist pt to develop strategies to achieve/maintain quit date, Assist pt w/nicotine replacement & medication for cessation success 30-day Reassessments:: Progressing - Hypertension Resting Blood Pressure:: 122/68 - controlled with medication [place] [employer] Hypertension Guidelines: [place] [employer] Hypertension Guidelines. Normal BP Less than 120/80. Elevated BP 120/80. Hypertension Stage 1: BP 130-139/80-89. Hypertesnion Stage 2: BP 140 or higher/90 or higher. Hypertension Crisis: BP higher than 180/120 Peak Exercise Blood Pressure:: 154/84 Outcomes/Goals: Able to verbalize/achieve optimal blood pressure <130/80, Incorporates diet changes & exercise for blood pressure control by DC Interventions/plan: Instruct on optimal blood pressure, hypertension & medications, Instruct on effects of sodium, alcohol, stress, exercise &hypertension 30 day Reassessments:: Met - Tobacco Cessation Referral Smoking Cessation Referral:: Yes Individual Education/Counseling:: Yes - Needs reinforcement to sustain smoking cessation Education Schedule Given:: Yes Psychosocial - Final Assessmen - VIsit Date of Eval: 02/18/20 Session #:: 35 Not Applicable: Yes - Target Goals Target Goals: Assess presence or absence of depression. Using a valid screening tool, maximizes coping skills. Positive support system - Psychosocial Test Tool Used:: Fritz Puente QOL Cardiac, PHQ-9 Questionnaire phq-9 Severity: Severity. 1-4 Minimal Depression. 5-9 Mild Depression. 10-14 Moderate Depression. 15-19 Moderately Sever Depression. 20-27 Severe Depression. Rule: - Referral to Behavioral Health PS - Interventions: Yes Attend Stress Management Classes, No Referral to Behavioral Health if PHQ-9 score >9:, No Referral to [facility], No Referral to Physician if PHQ-9 if score is 5-9: - Outcomes/Goals: See list Psychosocial Outcomes/Goals:: ID's personal stressors & 2 strategies to manage stress by discharge - Intervention/Plan: See List Interventions/Plan:: Assess stressors,coping strategies & signs of derpression on admission, Instruct/assist pt to develop coping & personal stress Mgt strategies, Instruct patient to recognize signs & symptoms of depression, Instruct patient to recog - 30-day Reassessments: 30 day Reassessments:: Met Patient Health Questionnaire Discharge Assessment 1. Little interest or pleasure in doing things: More than half the days 2. Feeling down, depressed, or hopeless: Several days 3. Trouble falling or staying asleep, or sleeping too much: Not at all 4. Feeling tired or having little energy: Several days 5. Poor appetite or overeating: Several days 6. Feeling bad about yourself -- or that you are a failure or have let yourself or your family down: Not at all 7. Trouble concentrating on things, such as reading the newspaper or watching television: Not at all 8. Moving or speaking so slowly that other people could have noticed. Or the opposite - being so fidgety or restless that you have been moving around a lot more than usual: Not at all 9. Thoughts that you would be better off , or of hurting yourself in some way: Not at all How difficult have these problems made it for you to do your work, take care of things at home, or get along with other people?: Not difficult at all Total Score: 5 VANESSA-Q SV Test - Statements CAD is a disease of the arteries in the heart: True Examples of risk factors for heart disease: True Angina is chest pain or discomfort: True The benefits of resistance training include: True Eating more meat and dairy products: False Anti-platelet medications such as aspirin are important: True The only effective way to manage stress: True An exercise warm-up slowly increases heart rate: True Prepared, processed foods usually have high sodium: True Depression is common after a heart attack: True The statin medications lower cholesterol: False To control blood pressure, lower the amount of sodium: True If someone gets chest discomfort during walking: False Transfats are partially hydrogenated vegetable oils: True Sleep apnea that is not treated increases the risk: False To control cholesterol, one should become a vegetarian: False Someone knows if he/she is exercising at the right level: True Diabetes cannot be prevented with exercise & health eating: False Stress is a large risk for heart attack: True A diet that can help lower blood pressure is rich in: True - Total Score Total Correct Responses: 17 Self-Efficacy Discharge Assessment We would like to know how confident you are in doing certain activities. Please select your confidence level for:: Select your confidence level for the following using the scale 1-10 where 1 is not at all confident and 10 is totally confident. Your score is the average of all 6 responses. Fatigue: How confident are you that you can keep the fatigue caused by your disease from interfering with the things you want to do? Select Number: 8 Physical Discomfort or Pain: How confident are you that you can keep the physical discomfort or pain of your disease from interfering with the things you want to do? Select Number: 8 Emotional Distress: How confident are you that you can keep the emotional distress caused by your disease from interfering with the things you want to do? Select Number: 8 Other Symptoms or Health Problems: How confident are you that you can keep other symptoms or health problems from interfering with the things you want to do? Select Number: 8 Different Tasks and Activities: How confident are you that you can do the different tasks and activities needed to manage your health condition so as to reduce your need to see a doctor? Select Number: 9 Medication: How confident are you that you can do things other than just taking medication to reduce how much your illness affects your everyday life? Select Number: 9 Total Score:: 8
[2020-02-18 06:00] VITALS: BP 122/68; BP 154/84; BMI 28.0
== END 2020-03-09 23:59 ==
LOC: CR 14:15
PROVIDERS: PCP Family Medicine Geriatric Medicine; Referring Provider Internal Medicine Cardiovascular Disease; Visit Provider Internal Medicine Cardiovascular Disease
DX: Z95.5 Presence of coronary angioplasty implant and graft (principal)
CPT/HCPCS: 93798

== ENCOUNTER 2020-03-23 15:30 | Outpatient (RCR) | payer MEDICARE, OTHER, SELFPAY ==
[2019-11-26 15:27] VITALS: BMI 27.6
[2020-02-18 06:00] VITALS: BMI 28.0
== END 2020-04-09 23:59 ==
LOC: DC 15:30
PROVIDERS: PCP Family Medicine Geriatric Medicine; Visit Provider Internal Medicine Cardiovascular Disease
DX: Z71.3 Dietary counseling and surveillance (principal); E11.9 Type 2 diabetes mellitus without complications; I10 Essential (primary) hypertension; E78.00 Pure hypercholesterolemia, unspecified
CPT/HCPCS: 97803; G0109

== ENCOUNTER → 2020-04-14 10:31 | Outpatient (CLI) | payer MEDICARE, OTHER, SELFPAY ==
[2019-11-26 15:27] VITALS: BMI 27.6
[2020-01-15 08:28] VITALS: BMI 27.8
[2020-02-18 06:00] VITALS: BMI 28.0
[2020-03-28 11:49] VITALS: BMI 27.7
[2020-04-14 12:22] LABS: Absolute Lymphocyte Count 1.37 X10^3/uL (0.83-4.51); Absolute Neutrophil Count 4.9 X10^3/uL (2.0-7.7); Basophil# 0.03 X10^3/uL; Basophil% 0.4 % (0-1); Eosinophils% 3.9 % (0-5); Hematocrit 39.1 % (40-54); Hemoglobin 12.4 g/dL (13.0-16.5); Lymphocyte # 1.37 X10^3/ul (4.0); Lymphocyte % 17.7 % (19-41); Mean Corp Hgb Conc 31.7 g/dL (32-36); Mean Corpuscular Hgb 29.3 pg (27.0-32.0); Mean Corpuscular Volume 92.4 fL (80-94); Mean Platelet Vol. 10.5 fl (6.2-12.0); Monocyte# 1.13 X10^3/uL; Monocyte% 14.6 % (0-10); NRBC Flagged by Analyzer 0 % (0-5); Neutrophil # 4.89 X10^3/uL (2.7-7.7); Neutrophil % 63.1 % (47-70); Platelet Count 185 K/mm3 (150-450); RBC Distribution Width CV 13.5 % (11.6-14.6); Red Blood Count 4.23 M/mm3 (4.6-6.2); White Blood Count 7.7 K/mm3 (4.4-11.0)
[2020-04-14 12:28] LABS: ALB/GLOB Ratio 1.1 RATIO (0.9-2.4); AST(SGOT) 8 U/L (15-37); Alanine Aminotransfer ALT/SGPT 16 U/L (16-61); Albumin, Serum 3.6 g/dL (3.2-5.0); Alkaline Phosphatase 68 U/L (45-117); Anion Gap 5 (5-15); BUN 27 mg/dL (7-18); BUN/Creat Ratio 17.3 RATIO (10-20); Calcium,Total 8.2 mg/dL (8.5-10.1); Chloride 109 mmol/L (98-107); Creatinine, Serum 1.56 mg/dL (0.70-1.30); EST Glomerular Filtration Rate 47 mL/min (>60); Est Glom Filt Rate - Afr Amer 57 mL/min (>60); Globulin 3.2 g/dL (2.2-4.2); Glucose 111 mg/dL (74-106); Potassium 4.3 mmol/L (3.5-5.1); Protein, Total 6.8 g/dL (6.4-8.2); Sodium Level 141 mmol/L (136-145); Thyroid Stim Hormone (TSH) 1.13 uIU/mL (0.358-3.74)
[2020-04-14 13:47] LABS: Vitamin D,25 Hydroxy 12.7 ng/mL
== END ==
PROVIDERS: PCP Family Medicine Geriatric Medicine; Visit Provider Internal Medicine Nephrology
DX: E11.65 Type 2 diabetes mellitus with hyperglycemia (principal); N17.9 Acute kidney failure, unspecified; E55.9 Vitamin D deficiency, unspecified; I10 Essential (primary) hypertension
CPT/HCPCS: 36415; 80053; 82306; 84100; 84443; 85025; G0109

== ENCOUNTER 2020-04-14 14:39 | Outpatient (RCR) | payer MEDICARE, OTHER, SELFPAY ==
[2020-02-18 06:00] VITALS: BMI 28.0
[2020-03-28 11:49] VITALS: BMI 27.7
== END 2020-05-09 23:59 ==
LOC: DC 14:39
PROVIDERS: PCP Family Medicine Geriatric Medicine; Visit Provider Internal Medicine Cardiovascular Disease
DX: Z71.3 Dietary counseling and surveillance (principal); E11.9 Type 2 diabetes mellitus without complications; I10 Essential (primary) hypertension; E78.00 Pure hypercholesterolemia, unspecified
CPT/HCPCS: G0109

== ENCOUNTER 2020-04-15 08:42 | Inpatient (IN) | payer MEDICARE, OTHER, SELFPAY ==
[2020-02-18 06:00] VITALS: BMI 28.0
[2020-03-28 11:49] VITALS: BMI 27.7
[2020-04-15] VITALS (22 sets, daily range): BP systolic 108–172; BP diastolic 64–126; PULSE 59–104; RESP 12–67; TEMP 35.7–36.6; O2SAT 72–100; BMI 32.7; BMI 31.6; BMI 31.7
--- NOTE | 2020-04-15 08:54 | EKG12_ITS ---
Test Reason : SOB Blood Pressure : / mmHG Vent. Rate : 082 BPM Atrial Rate : 082 BPM P-R Int : 202 ms QRS Dur : 180 ms QT Int : 456 ms P-R-T Axes : 029 001 097 degrees QTc Int : 532 ms Sinus rhythm with frequent Premature ventricular complexes Possible Left atrial enlargement Left bundle branch block Abnormal ECG Confirmed by HILARY RATLIFF, VONNIE ([id number]), editor dictionary CELENA RADFORD ([id number]) on 04/18/2020 2:27:35 PM Referred By: Confirmed By:VONNIE RICHARD MD
--- NOTE | 2020-04-15 08:56 | ED.VIS.GEN ---
History of Present Illness Chief Complaint: Shortness of Breath Narrative: 69-year-old male presenting in respiratory distress via EMS. Dates that he has been short of breath for the past couple of days but is really been labored over the last couple of hours. He is unsure if he has had fevers. He is able to state that he has been hospitalized for shortness of breath before. Patient history is limited due to patient's respiratory distress and inability to answer some answers. - Past Medical History (1) Acute CHF (congestive heart failure) Status: Chronic (2) Hypoxia Status: Chronic (3) Atherosclerotic heart disease of [place] coronary artery without angina pectoris Status: Chronic (4) Automatic implantable cardiac defibrillator in situ Status: Chronic (5) CKD (chronic kidney disease) stage 3, GFR 30-59 ml/min Status: Chronic Past Medical History - Allergies and Home Meds Allergies/Adverse Reactions: Allergies FRANK Inhibitors Allergy (Verified 03/28/20 11:49) cough atorvastatin [From Lipitor] Allergy (Verified 03/28/20 11:49) myalgia gabapentin [From Neurontin] Allergy (Verified 03/28/20 11:49) numbness Penicillins Allergy (Verified 03/28/20 11:49) Hives Sulfa (Sulfonamide Antibiotics) Allergy (Verified 03/28/20 11:49) Hives bupropion Adverse Reaction (Verified 04/15/20 14:45) headaches and borderline psychotic Past Medical History: - - Reviewed and problem list Surgical History: herniorrhaphy, - - ICD Placement Lives: Alone Smoking Status: Current every day smoker Alcohol: None Drugs: None Review of Systems General: Reports: Chills, Sweats Eyes: Denies: Visual changes - bilaterally, Diplopia Cardiovascular: Reports: Chest pain Respiratory: Reports: Dyspnea, Cough, Dyspnea on exertion Musculoskeletal: Reports: Myalgias, Extremity Pain Skin: Reports: - - Given mottling on abdomen Physical Exam Vital Signs/Narrative: Vital Signs Temp Pulse Resp BP Pulse Ox 04/15/20 08:46 96.2 F L 104 H 28 H 172/126 H 72 Inital Vital Signs reviewed: Yes General: Obese, Acute Distress Head: Normocephalic, Atraumatic Eyes: Perrl, EOMI ENT: Dry mucous membranes Cardiovascular: Regular rhythm, Tachycardia Respiratory: Decreased Air Movement, Retractions, - - Speaks in one-word sentences. Abdomen: Soft, Nontender Extremities: Edema Skin: Diaphoresis, - - And mottling on the abdomen Neurological: Alert, Oriented x3 Psychological: Agitated Diagnostic/Tx/Re-eval Clinical Impression(s) from Imaging Studies Chest X-Ray 04/15/20 09:15 IMPRESSION: Mild cardiomegaly and CHF. Electronically Signed: Keenan Gardner, at 9:57 EST , Service support , Laboratory Data 04/15/20 04/15/20 04/15/20 08:50 08:50 08:50 WBC 12.8 H RBC 4.87 Hgb 14.4 Hct 46.4 MCV 95.3 H MCH 29.6 MCHC 31.0 L RDW Std Deviation 47.6 H RDW Coeff of Jane 13.5 Plt Count 206 MPV 10.4 Immature Gran % (Auto) 0.300 Neut % (Auto) 55.0 Lymph % (Auto) 28.0 [place] % (Auto) 12.7 H Eos % (Auto) 3.5 Baso % (Auto) 0.5 Absolute Neuts (auto) 7.0 Absolute Lymphs (auto) 3.57 Nucleated RBC % 0 Differential Comment Diff Path Review May foll Platelet Estimate ADEQUATE RBC Morphology NORM C+C PT 13.6 INR 1.1 APTT 28.0 D-Dimer Quant (PE/DVT) 1.14 H* Specimen Type Sample Site pH Bicarbonate Actual Total CO2 Base Excess O2 Saturation O2 % ABG pCO2 ABG pO2 O2 Delivery Device Sodium 145 Potassium 4.7 Chloride 114 H Carbon Dioxide 25.0 Anion Gap 6 BUN 23 H Creatinine 1.74 H Estim Creat Clear Calc 37.99 Est GFR (MDRD) Af Amer 50 L Est GFR (MDRD) Non-Af 42 L BUN/Creatinine Ratio 13.2 Glucose 147 H Lactic Acid Calcium 9.1 Total Bilirubin 0.50 AST 8 L ALT 14 L Alkaline Phosphatase 80 Troponin I 0.160 H B-Natriuretic Peptide Total Protein 7.4 Albumin 3.9 Globulin 3.5 Albumin/Globulin Ratio 1.1 Procalcitonin COVID-19 (RUFUS) 04/15/20 04/15/20 04/15/20 08:50 08:50 08:50 WBC RBC Hgb Hct MCV MCH MCHC RDW Std Deviation RDW Coeff of Jane Plt Count MPV Immature Gran % (Auto) Neut % (Auto) Lymph % (Auto) [place] % (Auto) Eos % (Auto) Baso % (Auto) Absolute Neuts (auto) Absolute Lymphs (auto) Nucleated RBC % Differential Comment Diff Path Review Platelet Estimate RBC Morphology PT INR APTT D-Dimer Quant (PE/DVT) Specimen Type Sample Site pH Bicarbonate Actual Total CO2 Base Excess O2 Saturation O2 % ABG pCO2 ABG pO2 O2 Delivery Device Sodium Potassium Chloride Carbon Dioxide Anion Gap BUN Creatinine Estim Creat Clear Calc Est GFR (MDRD) Af Amer Est GFR (MDRD) Non-Af BUN/Creatinine Ratio Glucose Lactic Acid 7.6 H* Calcium Total Bilirubin AST ALT Alkaline Phosphatase Troponin I B-Natriuretic Peptide 1630.4 H Total Protein Albumin Globulin Albumin/Globulin Ratio Procalcitonin < 0.04 COVID-19 (RUFUS) 04/15/20 04/15/20 08:55 09:28 WBC RBC Hgb Hct MCV MCH MCHC RDW Std Deviation RDW Coeff of Jane Plt Count MPV Immature Gran % (Auto) Neut % (Auto) Lymph % (Auto) [place] % (Auto) Eos % (Auto) Baso % (Auto) Absolute Neuts (auto) Absolute Lymphs (auto) Nucleated RBC % Differential Comment Diff Path Review Platelet Estimate RBC Morphology PT INR APTT D-Dimer Quant (PE/DVT) Specimen Type ART Sample Site R Radial pH 7.29 L Bicarbonate Actual 21.3 L Total CO2 23 Base Excess -5 L O2 Saturation 95 O2 % 50 ABG pCO2 44.8 ABG pO2 87 O2 Delivery Device BiPAP Sodium Potassium Chloride Carbon Dioxide Anion Gap BUN Creatinine Estim Creat Clear Calc Est GFR (MDRD) Af Amer Est GFR (MDRD) Non-Af BUN/Creatinine Ratio Glucose Lactic Acid Calcium Total Bilirubin AST ALT Alkaline Phosphatase Troponin I B-Natriuretic Peptide Total Protein Albumin Globulin Albumin/Globulin Ratio Procalcitonin COVID-19 (RUFUS) Not Detected - Rhythm Strip Rhythm Strip: Sinus Rhythm Rate: 82 - EKG Initial EKG Interpretation: Sinus Rhythm, LBBB, - - pvc's - Medical Decision Making Patient presents hypoxic and shortness of breath. He is in respiratory distress. He is immediately placed on BiPAP. Troponin and BNP are both elevated. Patient was given aspirin. EKG showed a sinus rhythm with PVCs but no ST elevations or depression. Chest x-ray shows heart failure. He is given Lasix. Dimer was elevated however his CTA was negative for PE. It does show heart failure. Patient does have an elevated lactic acid which is likely due to his respiratory distress. Although he is a leukocytosis there is no source of infection. The?19 swab is negative. Patient had to be reevaluated multiple times however he is significantly improved and weaned off of BiPAP and is now on 6 L of oxygen he feels comfortable. Patient was discussed with hospitalist who admitted the patient for heart failure. Impression: 1. CHF exacerbation 2. Hypoxia 3. Indeterminate troponin 4. Lactic acidosis - Critical Care Time Critical care time (excluding procedures): 30-74 minutes, Discussing w/Patient &/or Family/Phlebotomy Services Technician, Performing Direct Patient Care at Bedside ED Disposition - Plan for ED Patient: Disposition: Acute Care Hospital [facility]
--- NOTE | 2020-04-15 09:15 | RAD_ITS ---
STUDY: X-RAY CHEST REASON FOR EXAM: Male, 69 years old. HYPOXIA -- SOB SEVERAL DAYS TECHNIQUE: Single AP portable view of the chest. COMPARISON: Comparison is made with prior study dated 11/08/2019. FINDINGS: EKG electrode are seen. The zones of increased interstitial markings suggestive of mild CHF. There is no demonstrated pleural abnormality. There is mild cardiac enlargement. A right-sided pacemaker is present. Normal mediastinum and azra. Normal visualized pulmonary arteries. Normal visualized aortic arch and descending thoracic aorta. There are diffuse degenerative changes of the visualized thoracic spine. Normal visualized ribs, clavicles, and shoulders. There is no demonstrated abnormality of the visualized soft tissue structures of the upper abdomen. RAD/Chest 1 View (Portable) IMPRESSION: Mild cardiomegaly and CHF. Electronically Signed: Keenan Gardner, at 9:57 EST , Service support ,
[2020-04-15 09:18] LABS: Absolute Lymphocyte Count 3.57 X10^3/uL (0.83-4.51); Basophil# 0.07 X10^3/uL; Basophil% 0.5 % (0-1); Eosinophil# 0.45 X10^3/uL; Eosinophils% 3.5 % (0-5); Hematocrit 46.4 % (40-54); Hemoglobin 14.4 g/dL (13.0-16.5); Lymphocyte # 3.57 X10^3/ul (4.0); Mean Corpuscular Hgb 29.6 pg (27.0-32.0); Mean Corpuscular Volume 95.3 fL (80-94); Mean Platelet Vol. 10.4 fl (6.2-12.0); Monocyte# 1.62 X10^3/uL; Monocyte% 12.7 % (0-10); NRBC Flagged by Analyzer 0 % (0-5); Neutrophil # 7.02 X10^3/uL (2.7-7.7); POSITIVE DIFFERENTIAL YES; Platelet Count 206 K/mm3 (150-450); RBC Distribution Width CV 13.5 % (11.6-14.6); RBC Distribution Width SD 47.6 fl (35.1-43.9); Red Blood Count 4.87 M/mm3 (4.6-6.2); White Blood Count 12.8 K/mm3 (4.4-11.0)
[2020-04-15 09:23] LABS: Differential Indicated SCAN CRITERIA MET
[2020-04-15 09:33] LABS: International Normalized Ratio 1.1; Prothrombin Time (Protime)PT. 13.6 SECONDS (11.7-14.9)
[2020-04-15 09:35] LABS: Base Excess -5 mmol/L (-2 to +2); Bicarbonate 21.3 mmol/L (22-26); Blood Gas Specimen Type ART; FI02 50; O2 Delivery Device BiPAP; PO2 87 mmHG (75-100); SITE R Radial; SO2 95 % (95-99); Total Carbon Dioxide 23 mmol/L; pCO2 44.8 mmHg (35-45); pH 7.29 (7.35-7.45)
[2020-04-15 09:36] LABS: ALB/GLOB Ratio 1.1 RATIO (0.9-2.4); AST(SGOT) 8 U/L (15-37); Alanine Aminotransfer ALT/SGPT 14 U/L (16-61); Albumin, Serum 3.9 g/dL (3.2-5.0); Alkaline Phosphatase 80 U/L (45-117); Anion Gap 6 (5-15); BUN 23 mg/dL (7-18); BUN/Creat Ratio 13.2 RATIO (10-20); Calcium,Total 9.1 mg/dL (8.5-10.1); Chloride 114 mmol/L (98-107); Creatinine, Serum 1.74 mg/dL (0.70-1.30); EST Glomerular Filtration Rate 42 mL/min (>60); Est Glom Filt Rate - Afr Amer 50 mL/min (>60); Estimated Creatinine Clearance 37.99 ml/min; Globulin 3.5 g/dL (2.2-4.2); Glucose 147 mg/dL (74-106); Potassium 4.7 mmol/L (3.5-5.1); Protein, Total 7.4 g/dL (6.4-8.2); Sodium Level 145 mmol/L (136-145)
[2020-04-15 09:39] LABS: D-Dimer Quantitative (DVT/PE) 1.14 FEU/ug/m (0.27-0.49)
[2020-04-15 09:55] LABS: Platelet Estimate ADEQUATE (ADEQ); Red Cell Morphology NORM C+C NORMAL (NORM C&C)
[2020-04-15 10:15] LABS: Lactic Acid 7.6 mmol/L (0.4-1.9); Procalcitonin < 0.04 ng/mL (0.00-0.09)
--- NOTE | 2020-04-15 10:30 | HP.PCM_ITS ---
History of Present Illness Date of Admission: 04/15/20 Chief Complaint: shortness of breath The patient is a 69 year old M with an extensive PMH as outlined. He was admitted with a complaint of shortness of breath which started 2 days prior to admission. It progressively worsened and he said he got more acutely short of breath just about 2 hours prior to admission. On arrival, patient could not give much of a history was immediately put on BiPAP as he was saturating in the 70s on room air. He did improve on BiPAP. On review, vitals show temperature of 96.2 with blood pressure 123/84, pulse rate of 69 and respiratory rate of 19. He was on BiPAP. Chemistry showed lactic acid of 7.6 and creatinine of 1.74 with initial troponin of 0.160. He showed hemoglobin of 14.4 with WBC of 12.8 and platelets of 206. Calcitonin was negative D-dimer was elevated at 1.14. I requested a chest CTA after discussion with the ICU doctor. Chest x-ray showed no evidence of pneumonia and showed some evidence of cardiomegaly and CHF. BNP requested. He has been admitted to be managed for acute hypoxic respiratory failure likely due to CHF exacerbation and probable Covid. Covid is pending. [] Past Medical History Past Medical History (Chronic Problems): Chronic Problems (Last Reviewed 03/28/20 @ 11:52 by Leyla Rodrigez) Acute CHF (congestive heart failure) (Chronic) Hypoxia (Chronic) CKD (chronic kidney disease) stage 3, GFR 30-59 ml/min (Chronic) Type 2 diabetes mellitus (Chronic) Presence of stent in coronary artery (Chronic 11/10/19) PTCA/YUDY to LCX and PTCA/YUDY to mid and distal RCA 06/22/11; Successful PTCA/YUDY to proximal/mid PL branch of RCA with a 3.0 x 38 Promus Synergy, post dilated proximally with a 3.5 x 8 NC Balloon; 75%-->0%, no dissection 05/22/19. Successful PTCA/YUDY mid LCX with a 2.25 x 28 Promus Synergy, followed immediately downstream with a 2.25 x 8 Promus Synergy; 75%-->0%, no dissection. Successful PTCA/YUDY of proximal LCX with a 2.5 x 8 Promus Synergy, post dilated with a 3.0 x 8 NC balloon; 75%-->0%. no dissection. 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) Automatic implantable cardiac defibrillator in situ (Chronic) Cardiomyopathy in other diseases classified elsewhere (Chronic) Blurred vision (Chronic) Ventricular tachycardia (Chronic) Atherosclerotic heart disease of [place] coronary artery without angina pectoris (Chronic) Medical History: Medical History (Last Reviewed 03/28/20 @ 11:52 by Leyla Rodrigez) CKD (chronic kidney disease) stage 3, GFR 30-59 ml/min (Chronic) N18.3 Type 2 diabetes mellitus (Chronic) E11.9 Presence of stent in coronary artery (Chronic) Onset Date: 11/10/19 Z95.5 PTCA/YUDY to LCX and PTCA/YUDY to mid and distal RCA 06/22/11; Successful PTCA/YUDY to proximal/mid PL branch of RCA with a 3.0 x 38 Promus Synergy, post dilated proximally with a 3.5 x 8 NC Balloon; 75%-->0%, no dissection 05/22/19. Successful PTCA/YUDY mid LCX with a 2.25 x 28 Promus Synergy, followed immediately downstream with a 2.25 x 8 Promus Synergy; 75%-->0%, no dissection. Successful PTCA/YUDY of proximal LCX with a 2.5 x 8 Promus Synergy, post dilat ed with a 3.0 x 8 NC balloon; 75%-->0%. no dissection. 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) Z79.899 Automatic implantable cardiac defibrillator in situ (Chronic) Z95.810 Cardiomyopathy in other diseases classified elsewhere (Chronic) I43 Abnormal echocardiogram (Inactive) R93.1 Abnormal myocardial perfusion study (Inactive) R94.39 Blurred vision (Chronic) H53.8 Chest tightness (Inactive) R07.89 Ventricular tachycardia (Chronic) I47.2 Atherosclerotic heart disease of [place] coronary artery without angina pectoris (Chronic) I25.10 Acute GA, subendocardial, subsequent episode of care I21.4 Allergies FRANK Inhibitors Allergy (Verified 03/28/20 11:49) cough atorvastatin [From Lipitor] Allergy (Verified 03/28/20 11:49) myalgia gabapentin [From Neurontin] Allergy (Verified 03/28/20 11:49) numbness Penicillins Allergy (Verified 03/28/20 11:49) Hives Sulfa (Sulfonamide Antibiotics) Allergy (Verified 03/28/20 11:49) Hives Home Medications: Ambulatory Orders Medication Instructions Recorded Aspirin [Aspirin, Baby] 81 mg PO DAILY@0800 09/10/14 rosuvastatin 10 mg tablet 10 mg PO QHS 09/22/19 icosapent ethyl 1 gram capsule 1 g PO DAILY 03/28/20 nitroglycerin 0.4 mg sublingual 0.4 mg SUBLINGUAL Q5M PRN #25 tab 03/28/20 tablet Carvedilol 12.5 mg PO BID 04/15/20 Clopidogrel Bisulfate [Clopidogrel] 75 mg PO DAILY 04/15/20 Furosemide [Lasix] 20 mg PO DAILY 04/15/20 Icosapent Ethyl [Vascepa] 2 gm PO QHS 04/15/20 Isosorbide Mononitrate [Isosorbide 60 mg PO DAILY 04/15/20 Mononitrate ER] Melatonin 5 mg PO QHS PRN 04/15/20 Surgical History: Surgical History (Last Reviewed 03/28/20 @ 11:52 by Leyla Rodrigez) History of herniorrhaphy Z98.890, Z87.19 Presence of coronary angioplasty implant and graft Onset Date: ~05/22/19 Z95.5 PTCA/YUDY to LCX and PTCA/YUDY to mid and distal RCA 06/22/11; Successful PTCA/YUDY to proximal/mid PL branch of RCA with a 3.0 x 38 Promus Synergy, post dilated proximally with a 3.5 x 8 NC Balloon; 75%-->0%, no dissection. 05/22/19 Surgical History: herniorrhaphy, - - ICD Placement Lives: Alone Smoking Status: Current every day smoker Tobacco Use: Cigarettes Alcohol: None Drugs: None Review of Systems Constitutional: Denies: Chills, Fever, Malaise, Weakness, Weight Change Eyes: Denies: Blurred vision HEENT: Denies: Head Aches, Sinus Congestion, Sinus Drainage Cardiovascular: Denies: Chest Pain, Chest Pressure, Chest Tightness, Edema, Light Headedness, Palpitations, Paroxysmal Noc. Dyspnea, Syncope Respiratory: Reports: Cough, Shortness of Breath, Shortness of breath at rest, Shortness of breath upon exertion. Denies: Sputum production Gastrointestinal: Denies: Abdominal Pain, Nausea, Vomiting Genitourinary: Denies: Dysuria Musculoskeletal: Denies: Joint Pain, Joint Tenderness Skin: Denies: Rash, Wounds Neurological: Denies: Numbness, Tingling, Focal weakness Psychiatric: Denies: Anxiety, Depression, Homicidal Ideations, Suicidal Ideations Hematologic/ Lymphatic: Denies: Easy Bruising, Easy Bleeding VTE Information - Inpt Only VTE Present on Admission: No VTE Pharm Prophylaxis ordered?: Yes - Physical Exam Vitals/I&O's: Vital Signs Temp Pulse Resp BP Pulse Ox 96.2 F L 69 19 H 123/84 H 96 04/15/20 08:57 04/15/20 09:38 04/15/20 09:38 04/15/20 09:38 04/15/20 09:38 Oxygen Flow Rate (L/min) 15 Oxygen Delivery Method Bi-pap Weight: 208 lb 15.971 oz Body Mass Index (BMI) 32.7 General: Alert, Oriented x3, Cooperative, No apparent distress HEENT: Atraumatic, PERRLA, EOMI, Normocephalic Oral: Dry Mucosa Neck: Supple, No JVD, Negative Carotid Bruits Lungs: - - diminished breath sounds bibasally, few crackles. On 6L of oxygen by nasal canula Cardiovascular: Regular rate, Regular Rhythm, Normal S1, Normal S2, No murmurs Abdomen: Bowel Sounds Present, Soft, Non Tender, Non-Distended, No Hepato- splenomegaly Extremities: No clubbing, No cyanosis, No edema, Capillary Refill Less than 3 Seconds Skin: No rashes, No breakdown Musculoskeletal: No Tenderness to Palpation of Joints or Extremities Lymphatic: No Cervical, Supraclavicular, or Inguinal Adenopathy Neurological: Cranial nerves II-XII grossly intact, Neuro grossly intact, Motor Exam 5/5 strength throughout Psych/Mental Status: Normal Affect, Appropriate, Alert and oriented to time, place, person, mood and affect Laboratory Results 04/15/20 08:50: WBC 12.8 H, RBC 4.87, Hgb 14.4, Hct 46.4, MCV 95.3 H, MCH 29.6, MCHC 31.0 L, RDW Std Deviation 47.6 H, RDW Coeff of Jane 13.5, Plt Count 206, MPV 10.4, Immature Gran % (Auto) 0.300, Neut % (Auto) 55.0, Lymph % (Auto) 28.0, [place] % (Auto) 12.7 H, Eos % (Auto) 3.5, Baso % (Auto) 0.5, Absolute Neuts (auto) 7.0, Absolute Lymphs (auto) 3.57, Nucleated RBC % 0, Differential Comment , Diff Path Review October, Platelet Estimate ADEQUATE, RBC Morphology NORM C+C 04/15/20 08:50: PT 13.6, INR 1.1, APTT 28.0, D-Dimer Quant (PE/DVT) 1.14 H* 04/15/20 08:50: Sodium 145, Potassium 4.7, Chloride 114 H, Carbon Dioxide 25.0, Anion Gap 6, BUN 23 H, Creatinine 1.74 H, Estim Creat Clear Calc 37.99, Est GFR (MDRD) Af Amer 50 L, Est GFR (MDRD) Non-Af 42 L, BUN/Creatinine Ratio 13.2, Glucose 147 H, Calcium 9.1, Total Bilirubin 0.50, AST 8 L, ALT 14 L, Alkaline Phosphatase 80, Troponin I 0.160 H, Total Protein 7.4, Albumin 3.9, Globulin 3.5, Albumin/Globulin Ratio 1.1 04/15/20 08:50: Lactic Acid 7.6 H* 04/15/20 08:50: Procalcitonin < 0.04 04/15/20 08:55: COVID-19 (RUFUS) Pending 04/15/20 09:28: Specimen Type ART, Sample Site R Radial, pH 7.29 L, Bicarbonate Actual 21.3 L, Total CO2 23, Base Excess -5 L, O2 Saturation 95, O2 % 50, ABG pCO2 44.8, ABG pO2 87, O2 Delivery Device BiPAP Diagnostic Data Chest X-Ray 04/15/20 09:15 IMPRESSION: Mild cardiomegaly and CHF. Electronically Signed: Keenan Gardner, at 9:57 EST , Service support , Chest CTA 04/15/20 10:32 IMPRESSION: Small bilateral pleural effusions with bibasilar atelectasis and/or early infiltrate superimposed on increased interstitial markings and septal markings suggestive of possible superimposed mild degree of CHF. Electronically Signed: Keenan Gardner, at 12:29 EST , Service support , Assessment/Plan All Active Problems (Last Reviewed 03/28/20 @ 11:52 by Leyla Rodrigez) Troponin I above reference range (Acute) 69 y/o admitted with a complaint of shortness of breath. # Acute hypoxic respiratory failure due to acute on chronic HFrEF * admit to ICU. Was requiring 15 L of oxygen on admission and is now on BiPAP. * ABG done was on BiPAP showed pH of 7.29 with PCO2 44.8 a PO2 of 87. * Diuresed with IV Lasix 40 mg twice daily. * Covid test was negative. CTA was negative for PE * Breathing treatments with bronchodilators. * Consult pulmonology. Monitor intake and output strictly. * BNP was over 1600./ * Titrate oxygen to maintain saturation above 90%. 2D echo. * #Acute exacerbation of HFrEF: Management as above. The echo in October 2019 showed EF of 25%. #elevated troponin: * initial troponin is 0.160. * May be due to demand ischemia from severe hypoxia. * EKG showed no acute ST changes. * cycle troponins. He doesnt have any chest pain. * consult cardiology * #Lactic acidosis: Consider 7.6. Likely due to hypoxia. Cannot hydrate as patient has heart failure. Will trend lactic acid. # CAD s/p stents: On aspirin and Plavix as well as Imdur and icosapent. Also on rosuvastatin. #Lipidemia: On statin #CKD stage III: Creatinine is 1.74 with EGFR 42. Will monitor. #Type 2 diabetes mellitus: Not on any meds. Likely diet controlled. Insulin sliding scale. Checks AC at bedtime. DVT prophylaxis: lovenox Code status: Full code * Patient counseled extensively about different types of CODE STATUS including full code, DNR CCA and DNR CCA. Patient elects to be full code. Total [id number] time 16 minutes. Inpatient E&M: 35223 Init Hosp L3 Procedures: 37897 Advncd Care Plan 30 Min
--- NOTE | 2020-04-15 10:32 | CT_ITS ---
STUDY: CTA CHEST REASON FOR EXAM: Male, 69 years old. Hypoxia. Hx hypertension, diabetes, pacemaker, NC. RADIATION DOSAGE (If Supplied By Facility): CTDIvol = ( 11.83 ) mGy, DLP = ( 471.02 ) mGycm TECHNIQUE: The examination was performed with the intravenous administration of IV 100mL Isovue-370. Post-processing of the angiographic images was performed, with multiplanar reformation and 3D reconstruction. Individualized dose optimization techniques were used for this CT. COMPARISON: Comparison is made with prior examination dated 06/22/2011. FINDINGS: Normal enhancement of the main pulmonary artery and right and left pulmonary arteries. Normal enhancement of the bilateral peripheral pulmonary arteries. There is no demonstrated pulmonary embolism. There is atherosclerotic calcification of the aortic arch with tortuosity. There is no demonstrated aortic dissection. There are calcifications of the coronary arteries. There are visualized mediastinal lymph nodes, which are within normal size limits, and with normal morphology. Normal hilar regions. Normal visualized trachea and bronchi. The lungs are well expanded. Small bilateral pleural effusions with the bibasilar atelectasis and/or infiltration. There is evidence of increased interstitial markings in both lungs more prominent in the lower lobes. Normal chest wall structures. There are degenerative changes of thoracic spine. Normal visualized upper abdomen. CT/CTA Chest W/WO Contrast IMPRESSION: Small bilateral pleural effusions with bibasilar atelectasis and/or early infiltrate superimposed on increased interstitial markings and septal markings suggestive of possible superimposed mild degree of CHF. Electronically Signed: Keenan Gardner, at 12:29 EST , Service support ,
[2020-04-15] MEDS: Furosemide 40 MG/4 ML Vial IV ×2 (10:57→17:52)
[2020-04-15 11:19] LABS: BNP,B-Type NATRIURETIC PEPTIDE 1630.4 pg/mL (0-100)
[2020-04-15 12:07] LABS: Bacteria 0 SEEN /hpf (None Seen); Mucous, Urine 0 SEEN /hpf (<or=2+); Red Blood Cells-Urine 0 SEEN /hpf (0-5); Squamous Epithelial Cells - UA 0 SEEN /hpf (0-5); White Blood Cells 0 SEEN /hpf (0-5)
[2020-04-15 12:26] LABS: Color, Urine Yellow (Yellow); Glucose, Dipstick Normal (Normal); Ketone-Dipstick Negative (Negative); Leukocyte Esterase-Dipstick Negative /ul (Negative); Nitrite-Dipstick Negative (Negative); Occult Blood-Urine Negative /ul (Negative); Protein-Dipstick 30 mg/dl (Negative); Urine Bilirubin Dipstick Negative (Negative); Urine Clarity Clear (Clear); Urine Urobilinogen Normal (Normal)
[2020-04-15 13:04] LABS: Reflex Lactate? Y
[2020-04-15] MEDS: Aspirin 81 MG TAB.CHEW 324 MG PO (13:50)
[2020-04-15 15:05] LABS: Lactic Acid 1.2 mmol/L (0.4-1.9)
--- NOTE | 2020-04-15 15:10 | ECHOL_ITS ---
Reason For Study: NSTEMI, CHF Procedure This was a limited 2D transthoracic echocardiogram. The exam was of adequate technical quality. Exam performed portable in ICU/CCU. Left Ventricle Severely dilated left ventricle. Apical false tendon noted. Severe segmental systolic dysfunction (see wall motion). The estimated ejection fraction is 20 %. Septal motion consistent with IVCD. Unable to assess diastolic dysfunction. Mid-Inferior: Akinetic. Inferior [place] : Akinetic. Right Ventricle Normal RV size. ICD or pacer leads identified within the right ventricle. Normal systolic function. Atria The left atrium is mildly enlarged. Normal right atrium. ICD or pacer leads identified within the right atrium. No doppler evidence for ASD. Mitral Valve There is no mitral annular calcification. Normal mitral valve. Mild (1+) mitral valve insufficiency. Tricuspid Valve Normal tricuspid valve. Trivial tricuspid valve insufficiency. Aortic Valve Trisinus/trileaflet aortic valve. Normal aortic valve. Pulmonic Valve The pulmonic valve is not well visualized. Great Vessels Mildly dilated aortic root. Pericardium/Pleural No pericardial effusion. MMode/2D Measurements & Calculations LVIDd: 7.0 cm IVSd: 1.1 cm Ao root diam: 4.1 cm LVIDs: 6.6 cm LVPWd: 1.0 cm FS: 6.1 % LAV(MOD-bp): 69.1 ml LVAd ap4: 62.0 cm2 SV(MOD-sp4): 101.6 ml LAV(MOD-bp) Indexed: 34.0 ml/m2 EDV(MOD-sp4): 290.6 ml LAV(MOD-sp2): 93.8 ml EDV(sp4-el): 303.6 ml LAV(MOD-sp4): 49.6 ml LVAs ap4: 46.1 cm2 ESV(MOD-sp4): 189.0 ml ESV(sp4-el): 192.0 ml EF(MOD-sp4): 35.0 % EF(sp4-el): 36.8 % SV(sp4-el): 111.6 ml LA A4 area: 19.7 cm2 LA dimension(2D): 5.4 cm RA A4 area: 15.7 cm2 Interpretation Summary Severely dilated left ventricle. Severe segmental systolic dysfunction (see wall motion). The estimated ejection fraction is 20 %. Septal motion consistent with IVCD. Apical false tendon noted. The left atrium is mildly enlarged. Mild (1+) mitral valve insufficiency. Trivial tricuspid valve insufficiency. Mildly dilated aortic root. Unable to assess diastolic dysfunction. ICD or pacer leads identified within the right atrium ICD or pacer leads identified within the right ventricle. Ordering Physician: Lida Chen Referring Physician: AYALA JIN Performed By: Tamera DAVIS RVT, Carrie and Student
--- NOTE | 2020-04-15 15:52 | NURSING ---
daughter came to pick-up check book & keys
[2020-04-15 16:03] LABS: BNP,B-Type NATRIURETIC PEPTIDE 1349.8 pg/mL (0-100)
--- NOTE | 2020-04-15 16:54 | CON.PCM_ITS ---
Problem List (1) Acute CHF (congestive heart failure) Status: Chronic (2) Cardiomyopathy in other diseases classified elsewhere Status: Chronic (3) Atherosclerotic heart disease of nondalton coronary artery without angina pectoris Status: Chronic Qualifiers: [place] vs. transplanted heart: nondalton heart Qualified Code(s): I25.10 - Atherosclerotic heart disease of nondalton coronary artery without angina pectoris (4) Presence of stent in coronary artery Status: Chronic Comment: PTCA/YUDY to LCX and PTCA/YUDY to mid and distal RCA 06/22/11; Successful PTCA/YUDY to proximal/mid PL branch of RCA with a 3.0 x 38 Promus Synergy, post dilated proximally with a 3.5 x 8 NC Balloon; 75%-->0%, no dissection 05/22/19. Successful PTCA/YUDY mid LCX with a 2.25 x 28 Promus Synergy, followed immediately downstream with a 2.25 x 8 Promus Synergy; 75%-->0%, no dissection. Successful PTCA/YUDY of proximal LCX with a 2.5 x 8 Promus Synergy, post dilated with a 3.0 x 8 NC balloon; 75%-->0%. no dissection. 11/10/2019 (5) Ventricular tachycardia Status: Chronic (6) Automatic implantable cardiac defibrillator in situ Status: Chronic (7) Pure hypercholesterolemia Status: Chronic (8) Essential (primary) hypertension Status: Chronic (9) Type 2 diabetes mellitus Status: Chronic (10) CKD (chronic kidney disease) stage 3, GFR 30-59 ml/min Status: Chronic Reason for Consult Date of Consultation: 04/15/20 History of Present Illness: The patient is a 69 year old white male who presents to the office today for a hospital follow-up with history of coronary artery disease with multiple stents, ischemic mediated cardiomyopathy, PVT, ICD, hyperlipidemia, hypertension diabetes mellitus, who presents for evaluation of acute on chronic systolic mediated CHF. He states over the past week he has noted that he has been somewhat more short of breath and dyspneic initially with exertion and then at rest. He noted this became somewhat more prominent yesterday evening, throughout the night, and this morning. He states he decided not to wait to present to the emergency department based on previous experience. He summoned the EMS. He noted in the EMS he became more acutely short of breath and dyspn eic. He was evaluated at the [facility] ED. He was felt to have acute on chronic systolic mediated CHF with associated hypoxemia with O2 saturation as low as 82%. He also had an indeterminate troponin I level, his ECG demonstrated sinus rhythm with left atrial enlargement and a left bundle branch block pattern with occasional PVCs. He had a chest x-ray and a chest CT scan both demonstrating concerns of CHF. He was placed in the ICU based upon his acute respiratory related issues. He was treated with supplemental O2 and IV diuretics. He notes since his IV diuretics he has had increased urinary output. He notes his breathing has improved. His O2 saturation has markedly improved. He has denied any separate chest discomfort. States when he felt more short of breath and dyspneic in the EMS that he may have been slightly nauseated. He denies emesis. He states that there is been no worsening lower extremity peripheral pitting edema. There is been no near syncope or syncope. His ICD did not discharge. He states he wonders if this event is related to his furosemide/Lasix dose being decreased recently. [] Past Medical History Allergies/Adverse Reactions: Allergies FRANK Inhibitors Allergy (Verified 03/28/20 11:49) cough atorvastatin [From Lipitor] Allergy (Verified 03/28/20 11:49) myalgia gabapentin [From Neurontin] Allergy (Verified 03/28/20 11:49) numbness Penicillins Allergy (Verified 03/28/20 11:49) Hives Sulfa (Sulfonamide Antibiotics) Allergy (Verified 03/28/20 11:49) Hives bupropion Adverse Reaction (Verified 04/15/20 14:45) headaches and borderline psychotic Home Medications: Ambulatory Orders Medication Instructions Recorded Aspirin [Aspirin, Baby] 81 mg PO DAILY@0800 09/10/14 rosuvastatin 10 mg tablet 10 mg PO QHS 09/22/19 icosapent ethyl 1 gram capsule 1 g PO DAILY 03/28/20 nitroglycerin 0.4 mg sublingual 0.4 mg SUBLINGUAL Q5M PRN #25 tab 03/28/20 tablet Carvedilol 12.5 mg PO BID 04/15/20 Clopidogrel Bisulfate [Clopidogrel] 75 mg PO DAILY 04/15/20 Furosemide [Lasix] 20 mg PO DAILY 04/15/20 Icosapent Ethyl [Vascepa] 2 gm PO QHS 04/15/20 Isosorbide Mononitrate [Isosorbide 60 mg PO DAILY 04/15/20 Mononitrate ER] Melatonin 5 mg PO QHS PRN 04/15/20 Past Medical History (Chronic Problems): Chronic Problems (Last Reviewed 03/28/20 @ 11:52 by Leyla Rodrigez) Acute CHF (congestive heart failure) (Chronic) Hypoxia (Chronic) CKD (chronic kidney disease) stage 3, GFR 30-59 ml/min (Chronic) Type 2 diabetes mellitus (Chronic) Presence of stent in coronary artery (Chronic 11/10/19) PTCA/YUDY to LCX and PTCA/YUDY to mid and distal RCA 06/22/11; Successful PTCA/YUDY to proximal/mid PL branch of RCA with a 3.0 x 38 Promus Synergy, post dilated proximally with a 3.5 x 8 NC Balloon; 75%-->0%, no dissection 05/22/19. Successful PTCA/YUDY mid LCX with a 2.25 x 28 Promus Synergy, followed immediately downstream with a 2.25 x 8 Promus Synergy; 75%-->0%, no dissection. Successful PTCA/YUDY of proximal LCX with a 2.5 x 8 Promus Synergy, post dilated with a 3.0 x 8 NC balloon; 75%-->0%. no dissection. 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) Automatic implantable cardiac defibrillator in situ (Chronic) Cardiomyopathy in other diseases classified elsewhere (Chronic) Blurred vision (Chronic) Ventricular tachycardia (Chronic) Atherosclerotic heart disease of nondalton coronary artery without angina pectoris (Chronic) Surgical History: herniorrhaphy, - - ICD Placement Lives: Alone Smoking Status: Current every day smoker Tobacco Use: Cigarettes Alcohol: None Drugs: None Review of Systems - Review of Systems General: Denies: Fever, Night Sweats, Fatigue Cardiovascular: Reports: Shortness of Breath, Shortness of Breath at Rest, Sh ortness of Breath with Exertion. Denies: Chest Discomfort, Orthopnea, PND, Peripheral Edema, Palpitations, Lightheadedness, Dizziness, Near Syncope, Syncope Respiratory: Reports: Shortness of Breath. Denies: Cough, Sputum Production, Hemoptysis Gastrointestinal: Denies: Hematemesis, Hematochezia, Melena Genitourinary: Denies: Dysuria, Hematuria Skin: Denies: Rash Subjectve: This is a 69-year-old white male who appears to be resting comfortably at the moment in no acute distress. Objective: Vital Signs Temp Pulse Resp BP Pulse Ox 97.3 F L 64 67 H 144/89 H 99 04/15/20 14:47 04/15/20 14:47 04/15/20 14:47 04/15/20 14:47 04/15/20 16:28 Oxygen Flow Rate (L/min) 2 Oxygen Delivery Method Nasal Cannula Weight: 202 lb 2.622 oz Body Mass Index (BMI) 31.6 General: Awake, Alert, Oriented x 3, Cooperative, No Acute Distress HEENT: Atraumatic, Normocephalic, PERRL, EOMI, Sclera Non Icteric Neck: Supple, Good ROM, No JVD Lungs: Rales - Charles Bases Cardiovascular: Regular Rhythm, Normal S1, Normal S2 Abdomen: Bowel Sounds Present, Soft Extremities: No edema Neurological: No Focal Motor or Sensory Deficit Psych/Mental Status: Appropriate 04/15/20 08:50: WBC 12.8 H, RBC 4.87, Hgb 14.4, Hct 46.4, MCV 95.3 H, MCH 29.6, MCHC 31.0 L, Plt Count 206, MPV 10.4, Immature Gran % (Auto) 0.300, Neut % (Auto) 55.0, Lymph % (Auto) 28.0, [place] % (Auto) 12.7 H, Eos % (Auto) 3.5, Baso % (Auto) 0.5, Absolute Neuts (auto) 7.0, Nucleated RBC % 0 04/15/20 08:50: PT 13.6, INR 1.1, APTT 28.0, D-Dimer Quant (PE/DVT) 1.14 H* 04/15/20 08:50: Sodium 145, Potassium 4.7, Chloride 114 H, Carbon Dioxide 25.0, Anion Gap 6, BUN 23 H, Creatinine 1.74 H, Est GFR (MDRD) Af Amer 50 L, Est GFR (MDRD) Non-Af 42 L, BUN/Creatinine Ratio 13.2, Glucose 147 H, Calcium 9.1, Total Bilirubin 0.50, Troponin I 0.160 H 04/15/20 08:50: Lactic Acid 7.6 H* 04/15/20 08:50: B-Natriuretic Peptide 1630.4 H 04/15/20 09:28: pH 7.29 L, Bicarbonate Actual 21.3 L, Base Excess -5 L, O2 Saturation 95, ABG pCO2 44.8, ABG pO2 87 04/15/20 11:55: Urine Color Yellow, Urine Clarity Clear, Urine pH 6.0, Ur Specific Correll 1.010, Urine Protein 30 H, Urine Glucose (UA) Normal, Urine Ketones Negative, Urine Occult Blood Negative, Urine Nitrite Negative, Urine Bilirubin Negative, Urine Urobilinogen Normal, Ur Leukocyte Esterase Negative, Urine RBC 0 SEEN, Urine WBC 0 SEEN 04/15/20 14:25: Lactic Acid 1.2 04/15/20 15:20: B-Natriuretic Peptide 1349.8 H 04/15/20 15:20: Troponin I 0.263 H Rhythm: Sinus rhythm EKG: As noted above ECHO: ??2019 Interpretation Summary Severely dilated left ventricle. The estimated ejection fraction is 25 %. There is severe global hypokinesis of the left ventricle. The left atrium is moderately enlarged. Mild (1+) eccentric mitral valve insufficiency. Pulmonary artery systolic pressure is 35 mmHg. Compared to prior study, there is no significant change. Contrast injection was performed. Compared to prior study, there is no significant change. Stress Test: Stress Test Report Date: 04-21-19 Procedure: Pharmacologic stress nuclear imaging study Indications: Fatigue; CAD; PCI; ischemic cardiomyopathy; ICD; abnormal ECG-left bundle branch block Consent: Per the patient Procedure: The patient underwent pharmacologic (Regadenoson) evaluation with a peak heart rate of 82 beats per minute (53 %predicted maximal heart rate) and a peak blood pressure of 130/80 mmHg. The baseline ECG demonstrated sinus rhythm; incomplete left bundle branch block pattern. The peak pharmacologic ECG demonstrated sinus rhythm with left bundle branch block pattern. There was an occasional PVC during recovery and an isolated ventricular triplet during recovery. [There was no complaint of chest discomfort during pharmacologic infusion or recovery]. The examination was discontinued secondary to completion of protocol. Impression: 1. Pharmacologic (Regadenoson) evaluation 2. Peak pharmacologic ECG with continued left IVCD pattern. 3. There was an occasional PVC during recovery and an isolated ventricular triplet during recovery. 4. Nuclear images pending Myocardial perfusion imaging study: Technique: The patient was injected with 14.0 millicuries of technetium 99m Cardiolite and subsequently rest SPECT Cardiolite nuclear imaging was obtained in the horizontal long, vertical long, and short axis views. The patient underwent pharmacologic (Regadenoson) evaluation with a peak heart rate of 82 beats per minute (53 % percent predicted maximal heart rate) and a peak blood pressure of 130/80 mmHg. The patient was injected with 44.3 millicuries of technetium 99m Cardiolite and subsequently stress SPECT Cardiolite nuclear imaging was obtained in the horizontal long, vertical long, and short axis views. A gated Cardiolite study at peak stress was obtained. Interpretation: Rest and stress SPECT Cardiolite nuclear imaging status post realignment, normalization, and attenuation correction demonstrate rest and stress SPECT Cardiolite nuclear imaging demonstrate at rest areas of diminished tracer uptake in portions of the distal anteroseptal/septal apical areas. Status post stress there is notation of improvement in these areas, however, there is notation of an area of diminished tracer uptake in portions of the mid towards distal anterior/anteroseptal segments as well as the associated anterior/septal apical segments. There are similar type findings on the resting and stress polar map images. There is diminished end systolic thickening and brightening. The gated Cardiolite study demonstrates diminished myocardial thickening and inward wall motion. The reported LVEF is 32 %. Impression: 1. Rest and stress SPECT currently nuclear imaging demonstrate myocardial perfusion changes potentially compatible with a combination of shifting soft tissue attenuation/artifact be more prominent at rest as opposed to stress but also concerning for an area of stress-induced myocardial ischemia involving portions of the mid to distal anterior/anteroseptal and associated apical segments. 2. The gated Cardiolite study reports an LVEF of 32 %. Cardiac Cath: 11-10-2019 CONCLUSIONS Elevated Left Ventricular End Diastolic Pressure [place] Multivessel CAD RECOMMENDATIONS Risk factor modification Medical therapy Referred for immediate PCI DESCRIPTION OF PROCEDURE The patient arrived to the procedure lab. The risks and benefits of the procedure as well as a full description of our services here and current unavailability of surgical backup were fully explained to the patient and/or their significant other prior to the catheterization. The Timeout was completed, verifying the correct patient and procedure. The patient's procedural site was prepped and draped in the usual fashion. Local anesthetic was given subcutaneously to right groin region with Lidocaine 2%. Using a modified Seldinger technique, arterial access was obtained via the right femoral artery, a 4Fr sheath was inserted Left Coronary Artery selective angiography was performed in multiple views using a 4 Fr. JL4 catheter. Right Coronary Artery selective angiography was then performed in multiple views using a 4 Fr. 3DRC catheter. LV to AO pullback pressures were then recorded.Contrast was injected through the sheath and the Right Iliac and Femoral artery were assessed for possible closure device.The arterial sheath was pulled and a Mynx closure device was deployed for hemostasis CORONARY ANGIOGRAPHY DOMINANCE: Right Dominant LEFT HEART ASSESSMENT Left Ventricular Ejection Fraction: Not assessed Elevated Left Ventricular End Diastolic Pressure LVEDP: 17 mmHg LEFT MAIN: Mild luminal irregularities LEFT ANTERIOR DESCENDING ARTERY: PROX LAD: Mild calcification, Mild luminal irregularities, eccentric: 25 % Stenosis CIRCUMFLEX ARTERY: PROX CIRC: hazy: 50 % Stenosis, Previously placed stent is patent MID CIRC: 75 % Stenosis RIGHT CORONARY ARTERY: PROX RCA: diffuse: ectatic: aneurysmal: 25 % Stenosis MID RCA: Previously placed stent is patent DISTAL RCA: Previously placed stent is patent RT PDA: Proximal - 25 % Stenosis, Mid - 25 % Stenosis RIGHT AV SEGMENT: Previously placed stent is patent PCI: ??2019 CONCLUSIONS Successful PTCA/YUDY mid LCX with a 2.25 x 28 Promus Synergy, followed immediately downstream with a 2.25 x 8 Promus Synergy; 75%-->0%, no dissection. Successful PTCA/YUDY of proximal LCX with a 2.5 x 8 Promus Synergy, post dilated with a 3.0 x 8 NC balloon; 75%-->0%. no dissection. CXR: As noted above Chest CT Scan: As noted above Assessment/Plan 1. Acute on chronic systolic mediated CHF At the present time the patient presents with concerns of acute on chronic systolic mediated CHF leading to an acute respiratory event with hypoxemia. He states this may be secondary to a recent decrease in his diuretic therapy. At the moment he is in the ICU. He is being monitored. He has been treated with IV furosemide. He has had increased urinary output. He states overall he is feeling much better. His O2 saturations have improved. At the present time he will continue to be followed. His cardiac enzymes are being trended. His ECG can be followed as deemed appropriate. He has recently undergone noninvasive and invasive evaluation as noted above. Depending upon his clinical course he may need repeat noninvasive and invasive evaluation. 2. Ischemic mediated cardiomyopathy He does have an underlying ischemic mediated cardiomyopathy. He has diminished LV systolic function/LVEF despite his medical therapy and revascularization therapy, etc. He will continue to be evaluated and treated as deemed appropriate. He can be reassessed as needed noninvasively and/or invasively. 3. CAD status post PCI His most recent CAD evaluation was in November of this year. He underwent subsequent PCI to the LCx/OM system. At the present time he will continue to be followed. Depending upon his clinical course and objective findings he may need to be reassessed in the cardiac catheterization laboratory if there is any concern of progression of CAD contributing to his event versus being related to his diminished oral diuretic intake. 4. PVT He does have a history of ventricular ectopy. He has been treated medically and has undergone revascularization therapy. He has an ICD in place. 5. ICD He will continue to be monitored with respect to his cardiac rate and rhythm. He states his ICD has not discharged. He can be reassessed as needed. 6. Hyperlipidemia He will continue risk factor modification medical management. 7. Hypertension His blood pressure will be followed. His medications may need to be adjusted to bring his blood pressure under better control. 8. Diabetes mellitus He will continue evaluation care per internal medicine. 9. Chronic renal insufficiency He does have an element of chronic renal insufficiency. This will need to be monitored as his clinical course progresses especially if he needs repeat evaluation in the cardiac catheterization laboratory based on concerns of IV contrast related nephropathy. Comment: The patient's case has been discussed and reviewed with the patient. This note was generated using a voice recognition system and there may be incorrect words, spelling or punctuation that were not noted when reviewing the office note prior to saving.
[2020-04-15] MEDS: Mag Hydrox/Al Hydrox/Simeth 30 ML UDC 15 ML PO (20:37)
[2020-04-15] MEDS: ICOSAPENT ETHYL 1 GM CAPSULE 2 GM PO (20:38)
[2020-04-15] MEDS: Carvedilol 12.5 MG Tablet PO (20:38)
[2020-04-15] MEDS: 0.9% Saline Lock 10 ML Syringe IV (20:43)
[2020-04-16] VITALS (24 sets, daily range): BP systolic 102–127; BP diastolic 50–105; PULSE 50–67; RESP 13–18; TEMP 36.3–36.6; O2SAT 95–99
[2020-04-16 05:03] LABS: Absolute Neutrophil Count 7.6 X10^3/uL (2.0-7.7); Basophil# 0.01 X10^3/uL; Basophil% 0.1 % (0-1); Hemoglobin 12.5 g/dL (13.0-16.5); Lymphocyte % 9.3 % (19-41); Mean Corp Hgb Conc 32.9 g/dL (32-36); Mean Corpuscular Hgb 29.8 pg (27.0-32.0); Mean Corpuscular Volume 90.5 fL (80-94); Mean Platelet Vol. 10.6 fl (6.2-12.0); Monocyte# 1.06 X10^3/uL; NRBC Flagged by Analyzer 0 % (0-5); Neutrophil # 7.63 X10^3/uL (2.7-7.7); Neutrophil % 79.3 % (47-70); Platelet Count 183 K/mm3 (150-450); RBC Distribution Width CV 13.3 % (11.6-14.6); RBC Distribution Width SD 43.9 fl (35.1-43.9); White Blood Count 9.6 K/mm3 (4.4-11.0)
[2020-04-16 06:27] LABS: Anion Gap 4 (5-15); BUN 37 mg/dL (7-18); Chloride 108 mmol/L (98-107); Creatinine, Serum 1.76 mg/dL (0.70-1.30); EST Glomerular Filtration Rate 41 mL/min (>60); Est Glom Filt Rate - Afr Amer 50 mL/min (>60); Estimated Creatinine Clearance 37.56 ml/min; Glucose 145 mg/dL (74-106); Potassium 4.5 mmol/L (3.5-5.1); Sodium Level 140 mmol/L (136-145)
--- NOTE | 2020-04-16 07:35 | PN_ITS ---
Subjective: Patient seen and examined. He is now on 2L of oxygen. He has remained hemodynamically stable. lactic acid is down to 1.2. He remains on 2L of oxygen. BNP has trended down to 1349.8. CTA was negative for PE. He has no complaints. Vitals/I&O's: Vital Signs Temp Pulse Resp BP Pulse Ox 98 F 57 L 13 106/64 95 04/16/20 05:00 04/16/20 07:00 04/16/20 07:00 04/16/20 07:00 04/16/20 07:00 Oxygen Flow Rate (L/min) 2 Oxygen Delivery Method Room Air Weight: 203 lb 7.787 oz Body Mass Index (BMI) 31.6 Intake and Output for Last 24 Hours 04/14/20 04/15/20 04/16/20 23:59 23:59 23:59 Intake Total 720 / 720 Output Total 1500 / 1500 300 / 300 Balance -780 / -780 -300 / -300 General: Alert, Oriented x3, Cooperative, No apparent distress HEENT: Atraumatic, PERRLA, EOMI, Normocephalic Oral: Dry Mucosa Neck: Supple, No JVD, Negative Carotid Bruits Lungs: - - diminished breath sounds bibasally, few crackles. On 2L of oxygen by nasal canula Cardiovascular: Regular rate, Regular Rhythm, Normal S1, Normal S2, No murmurs Abdomen: Bowel Sounds Present, Soft, Non Tender, Non-Distended, No Hepato- splenomegaly Extremities: No clubbing, No cyanosis, No edema, Capillary Refill Less than 3 Seconds Skin: No rashes, No breakdown Musculoskeletal: No Tenderness to Palpation of Joints or Extremities Lymphatic: No Cervical, Supraclavicular, or Inguinal Adenopathy Neurological: Cranial nerves II-XII grossly intact, Neuro grossly intact, Motor Exam 5/5 strength throughout Psych/Mental Status: Normal Affect, Appropriate, Alert and oriented to time, place, person, mood and affect Laboratory Results 04/15/20 08:50: WBC 12.8 H, RBC 4.87, Hgb 14.4, Hct 46.4, MCV 95.3 H, MCH 29.6, MCHC 31.0 L, RDW Std Deviation 47.6 H, RDW Coeff of Jane 13.5, Plt Count 206, MPV 10.4, Immature Gran % (Auto) 0.300, Neut % (Auto) 55.0, Lymph % (Auto) 28.0, [place] % (Auto) 12.7 H, Eos % (Auto) 3.5, Baso % (Auto) 0.5, Absolute Neuts (auto) 7.0, Absolute Lymphs (auto) 3.57, Nucleated RBC % 0, Differential Comment , Diff Path Review May foll, Platelet Estimate ADEQUATE, RBC Morphology NORM C+C 04/15/20 08:50: PT 13.6, INR 1.1, APTT 28.0, D-Dimer Quant (PE/DVT) 1.14 H* 04/15/20 08:50: Sodium 145, Potassium 4.7, Chloride 114 H, Carbon Dioxide 25.0, Anion Gap 6, BUN 23 H, Creatinine 1.74 H, Estim Creat Clear Calc 37.99, Est GFR (MDRD) Af Amer 50 L, Est GFR (MDRD) Non-Af 42 L, BUN/Creatinine Ratio 13.2, Glucose 147 H, Calcium 9.1, Total Bilirubin 0.50, AST 8 L, ALT 14 L, Alkaline Phosphatase 80, Troponin I 0.160 H, Total Protein 7.4, Albumin 3.9, Globulin 3.5, Albumin/Globulin Ratio 1.1 04/15/20 08:50: Lactic Acid 7.6 H* 04/15/20 08:50: Procalcitonin < 0.04 04/15/20 08:50: B-Natriuretic Peptide 1630.4 H 04/15/20 08:55: COVID-19 (RUFUS) Not Detected 04/15/20 09:28: Specimen Type ART, Sample Site R Radial, pH 7.29 L, Bicarbonate Actual 21.3 L, Total CO2 23, Base Excess -5 L, O2 Saturation 95, O2 % 50, ABG pCO2 44.8, ABG pO2 87, O2 Delivery Device BiPAP 04/15/20 11:55: Urine Color Yellow, Urine Clarity Clear, Urine pH 6.0, Ur Specific [place] 1.010, Urine Protein 30 H, Urine Glucose (UA) Normal, Urine Ketones Negative, Urine Occult Blood Negative, Urine Nitrite Negative, Urine Bilirubin Negative, Urine Urobilinogen Normal, Ur Leukocyte Esterase Negative, Urine RBC 0 SEEN, Urine WBC 0 SEEN, Ur Squamous Epith Cells 0 SEEN, Urine Bacteria 0 SEEN, Urine Mucus 0 SEEN 04/15/20 14:25: Lactic Acid 1.2 04/15/20 15:20: B-Natriuretic Peptide 1349.8 H 04/15/20 15:20: Troponin I 0.263 H 04/15/20 17:45: Troponin I 0.216 H 04/15/20 20:45: Troponin I 0.219 H 04/16/20 04:50: WBC 9.6, RBC 4.20 L, Hgb 12.5 L, Hct 38.0 L, MCV 90.5 D, MCH 29.8, MCHC 32.9 D, RDW Std Deviation 43.9, RDW Coeff of Jane 13.3, Plt Count 183, MPV 10.6, Immature Gran % (Auto) 0.300, Neut % (Auto) 79.3 H, Lymph % (Auto) 9.3 L, [place] % (Auto) 11.0 H, Eos % (Auto) 0.0, Baso % (Auto) 0.1, Absolute Neuts (auto) 7.6, Absolute Lymphs (auto) 0.90, Nucleated RBC % 0 04/16/20 04:50: Sodium 140, Potassium 4.5, Chloride 108 H, Carbon Dioxide 28.0, Anion Gap 4 L, BUN 37 H, Creatinine 1.76 H, Estim Creat Clear Calc 37.56, Est GFR (MDRD) Af Amer 50 L, Est GFR (MDRD) Non-Af 41 L, BUN/Creatinine Ratio 21.0 H , Glucose 145 H, Calcium 9.0 Diagnostic Data Chest X-Ray 04/15/20 09:15 IMPRESSION: Mild cardiomegaly and CHF. Electronically Signed: Keenan Gardner, at 9:57 EST , Service support , Chest CTA 04/15/20 10:32 IMPRESSION: Small bilateral pleural effusions with bibasilar atelectasis and/or early infiltrate superimposed on increased interstitial markings and septal markings suggestive of possible superimposed mild degree of CHF. Electronically Signed: Keenan Gardner, at 12:29 EST , Service support , Current Medications Al Hydroxide/Mg Hydroxide (Mag Hydrox/Al Hydrox/Simeth 30 Ml Udc) 15 ml PO Q4H PRN PRN PRN Reason: DYSPEPSIA Last Admin: 04/15/20 20:37 Dose: 15 ml Documented by: Aspirin (Aspirin 81 Mg Tab.Chew) 81 mg PO DAILY [facility] Carvedilol (Carvedilol 12.5 Mg Tablet) 12.5 mg PO BID [facility] Last Admin: 04/15/20 20:38 Dose: 12.5 mg Documented by: Clopidogrel Bisulfate (Clopidogrel Bisulfate 75 Mg Tablet) 75 mg PO DAILY [facility] Enoxaparin Sodium (Enoxaparin 40 Mg/0.4 Ml Syringe) 40 mg SC DAILY [facility] Furosemide (Furosemide 40 Mg/4 Ml Vial) 40 mg IV BID@1000,1700 [facility] Last Admin: 04/15/20 17:52 Dose: 40 mg Documented by: Isosorbide Mononitrate (Isosorbide Mononitrate 60 Mg Tablet) 60 mg PO DAILY [facility] Melatonin (Melatonin 3 Mg Tablet) 3 mg PO QHS PRN PRN PRN Reason: SLEEP Nitroglycerin (Nitroglycerin (Inpatient Use) 0.4 Mg Tab.Subl) 0.4 mg SUBLINGUAL Q5M PRN PRN Reason: CARDIAC/CHEST PAIN Ondansetron HCl (Ondansetron 4 Mg/2 Ml Vial) 4 mg IV Q8H PRN PRN PRN Reason: NAUSEA/VOMITING Rosuvastatin Calcium (Rosuvastatin Calcium 10 Mg Tablet) 10 mg PO QHS [facility] Last Admin: 04/15/20 20:37 Dose: 10 mg Documented by: Sodium Chloride (0.9% Saline Lock 10 Ml Syringe) 10 - 40 ml IV UD PRN PRN Reason: SALINE FLUSH Last Admin: 04/15/20 20:43 Dose: 10 ml Documented by: STROKE Vital Signs/Narrative: Vital Signs Temp Pulse Resp BP Pulse Ox 04/16/20 07:00 57 L 13 106/64 95 04/16/20 06:00 60 14 122/66 H 96 04/16/20 05:00 98 F 57 L 16 126/81 H 95 04/16/20 04:00 60 15 102/50 L 99 Medical Necessity - Tobacco Use Smoking Status: Current every day smoker Tobacco Use: Cigarettes Assessment/Plan All Active Problems (Last Reviewed 03/28/20 @ 11:52 by Leyla Rodrigez) Troponin I above reference range (Acute) 69 y/o admitted with a complaint of shortness of breath. # Acute hypoxic respiratory failure due to acute on chronic HFrEF * now on 2L * CTA was negative for PE * on IV lasix 40mg bid; urine output was 1500cc over 24 hours * titrate oxygen to maintain sats >90% * critical care and cardiology on board * * #Acute exacerbation of HFpEF: Management as above. The echo in October 2019 showed EF of 25%. #NSTEMI * initial troponin was 0.160 and trended up to a peak of .0219 * May be due to demand ischemia from severe hypoxia. * EKG showed no acute ST changes. * cardiology on board * on aspirin, plavix, imdur, rosuvastatin and icosapent * #Lactic acidosis: resolved. Trended down to 1.2. # CAD s/p stents: On aspirin and Plavix as well as Imdur and icosapent. Also on rosuvastatin. #Hyperlipidemia: On statin #CKD stage III: Creatinine is 1.76 with EGFR 42. Will monitor. #Type 2 diabetes mellitus: Not on any meds. Likely diet controlled. Insulin sliding scale. Checks AC at bedtime. DVT prophylaxis: lovenox Code status: Full code * P Inpatient E&M: 17462 Subs Hosp L3
[2020-04-16] MEDS: Aspirin 81 MG TAB.CHEW PO (09:46)
[2020-04-16] MEDS: Carvedilol 12.5 MG Tablet PO ×2 (09:46→22:18)
[2020-04-16] MEDS: Clopidogrel Bisulfate 75 MG Tablet PO (09:47)
[2020-04-16] MEDS: Furosemide 40 MG/4 ML Vial IV ×2 (09:47→16:49)
[2020-04-16] MEDS: Isosorbide Mononitrate 60 MG Tablet PO (09:47)
[2020-04-16] MEDS: Enoxaparin 40 MG/0.4 ML Syringe SC (09:47)
[2020-04-16] MEDS: ICOSAPENT ETHYL 1 GM CAPSULE 2 GM PO ×2 (09:48→22:19)
--- NOTE | 2020-04-16 10:05 | PN.CARD_ITS ---
Subjectve: The patient is awake and alert. He states his breathing has markedly improved. He denies any ongoing chest discomfort. Objective: Vital Signs Temp Pulse Resp BP Pulse Ox 97.5 F L 67 18 121/105 H 97 04/16/20 08:00 04/16/20 09:00 04/16/20 09:00 04/16/20 09:00 04/16/20 09:00 Oxygen Flow Rate (L/min) 2 Oxygen Delivery Method Room Air Weight: 203 lb 7.787 oz Body Mass Index (BMI) 31.6 Intake and Output for Last 24 Hours 04/14/20 04/15/20 04/16/20 23:59 23:59 23:59 Intake Total 720 / 720 120 / 120 Output Total 1500 / 1500 300 / 300 Balance -780 / -780 -180 / -180 General: Awake, Alert, Oriented x 3, Cooperative, No Acute Distress HEENT: Atraumatic, Normocephalic, PERRL, EOMI, Sclera Non Icteric Neck: Supple, Good ROM, No JVD Lungs: Diminished Charles Bases - Improved compared to the previous evaluation Cardiovascular: Regular Rhythm, Premature Ectopic Beats, Normal S1, Normal S2 Abdomen: Bowel Sounds Present, Soft Extremities: No edema Neurological: No Focal Motor or Sensory Deficit Psych/Mental Status: Appropriate 04/15/20 08:50: Lactic Acid 7.6 H* 04/15/20 08:50: B-Natriuretic Peptide 1630.4 H 04/15/20 11:55: Urine Color Yellow, Urine Clarity Clear, Urine pH 6.0, Ur Specific [place] 1.010, Urine Protein 30 H, Urine Glucose (UA) Normal, Urine Ketones Negative, Urine Occult Blood Negative, Urine Nitrite Negative, Urine Bilirubin Negative, Urine Urobilinogen Normal, Ur Leukocyte Esterase Negative, Urine RBC 0 SEEN, Urine WBC 0 SEEN 04/15/20 14:25: Lactic Acid 1.2 04/15/20 15:20: B-Natriuretic Peptide 1349.8 H 04/15/20 15:20: Troponin I 0.263 H 04/15/20 17:45: Troponin I 0.216 H 04/15/20 20:45: Troponin I 0.219 H 04/16/20 04:50: WBC 9.6, RBC 4.20 L, Hgb 12.5 L, Hct 38.0 L, MCV 90.5 D, MCH 29.8, MCHC 32.9 D, Plt Count 183, MPV 10.6, Immature Gran % (Auto) 0.300, Neut % (Auto) 79.3 H, Lymph % (Auto) 9.3 L, [place] % (Auto) 11.0 H, Eos % (Auto) 0.0, Baso % (Auto) 0.1, Absolute Neuts (auto) 7.6, Nucleated RBC % 0 04/16/20 04:50: Sodium 140, Potassium 4.5, Chloride 108 H, Carbon Dioxide 28.0, Anion Gap 4 L, BUN 37 H, Creatinine 1.76 H, Est GFR (MDRD) Af Amer 50 L, Est GFR (MDRD) Non-Af 41 L, BUN/Creatinine Ratio 21.0 H, Glucose 145 H, Calcium 9.0 Rhythm: Sinus rhythm; occasional PVCs; findings compatible with a rate related bundle branch block phenomena Medical Necessity - Tobacco Use Smoking Status: Current every day smoker Tobacco Use: Cigarettes Assessment/Plan 1. Acute on chronic systolic mediated CHF At the present time the patient presents with concerns of acute on chronic systolic mediated CHF leading to an acute respiratory event with hypoxemia. He states this may be secondary to a recent decrease in his diuretic therapy. At the moment he is in the ICU. He is being monitored. He has been treated with IV furosemide. He has had increased urinary output. He states overall he is feeling much better. His O2 saturations have improved. This morning he was not wearing O2 nasal cannula upon evaluation. Overall, he will continue medical therapy including his IV diuretics. He will eventually be transitioned to oral diuretics. 2. Ischemic mediated cardiomyopathy He does have an underlying ischemic mediated cardiomyopathy. He has diminished LV systolic function/LVEF despite his medical therapy and revascularization therapy, etc. He will continue to be evaluated and treated as deemed appropriate. He can be reassessed as needed noninvasively and/or invasively. 3. CAD status post PCI His most recent CAD evaluation was in November of this year. He underwent subsequent PCI to the LCx/OM system. At the present time he will continue to be followed. Depending upon his clinical course and objective findings he may need to be reassessed in the cardiac catheterization laboratory if there is any concern of progression of CAD contributing to his event versus being related to his diminished oral diuretic intake. 4. PVT He does have a history of ventricular ectopy. He has been treated medically and has undergone revascularization therapy. He has an ICD in place. 5. ICD He will continue to be monitored with respect to his cardiac rate and rhythm. He states his ICD has not discharged. He can be reassessed as needed. 6. Hyperlipidemia He will continue risk factor modification medical management. 7. Hypertension His blood pressure will be followed. His medications may need to be adjusted to bring his blood pressure under better control. 8. Diabetes mellitus He will continue evaluation care per internal medicine. 9. Chronic renal insufficiency He does have an element of chronic renal insufficiency. This will need to be monitored as his clinical course progresses especially if he needs repeat evaluation in the cardiac catheterization laboratory based on concerns of IV contrast related nephropathy. For all, at the present time, the patient will continue to be monitored. He will continue medical management with eventual transition of IV diuretics to oral diuretics. If he remains otherwise symptomatically and hemodynamically stable he should be able to be transferred from the ICU to the PCU. Comment: The patient's case has been discussed and reviewed with the patient. This note was generated using a voice recognition system and there may be incorrect words, spelling or punctuation that were not noted when reviewing the office note prior to saving.
--- NOTE | 2020-04-16 10:27 | CM.UR ---
XIOMY STINSON assessment: Face to Face with patient for initial transition planning/care coordination assessment. RN MILAD introduced self and role at [facility], pt voices understanding and consents to assessment at this time. Pt is A/Ox4 at this time and answers all questions appropriately at this time. Pt is sitting in chair at this time. No distress at this time. Care providers, pharmacy, and demographics verified at this time. Presentation: Pt c/o increased SOB onset yesterday Admitting dx: CHF PCP: Brady Specialists: Paresh, cardio. Dr. Lai nephrology Preferred Pharmacy: [facility] Insurance: [employer], [employer]. Prescription Benefit: Yes. Denies any concerns obtaining/paying for medications. Living Will/HPOA: Pt states does not have LW/HPOA and declines AD info at this time. States he needs to get all his kids together to discuss. LNOK: Tiffany Brown, daughter. States she lives the closest and is most available to him. Living Arrangements: Pt states lives alone in 2 story home and states no concerns at home at this time. Pt states is independent with ADL's. Transportation: Pt states drives self and states no transportation concerns at this time. DME: Pt states has a bp cuff and glucometer. Pt states no need for any further DME at this time. HHC/SNF: Pt states no hx of HHC or SNF in the past. Pt states no concerns with going home at time of discharge. Pt is retired. Pt states states smokes almost 1 ppd and occasionally drinks ETOH. Smoking has decreased since last admission. States he tried Wellbutrin to quit but he actually smoked more during that time. Encouraged to continue to try to stop smoking. Verb understanding and agreement of need to. Pt states no further concerns/needs at this time. CM to follow for any further discharge planning/needs. Advised pt to ask for CM if any further questions/concerns/needs arise, voices understanding. Pt Goal: Home Plan: Home, No needs identified. Chaparro Bowman RN, [facility].
[2020-04-16] MEDS: 0.9% Saline Lock 10 ML Syringe IV (16:49)
[2020-04-16] MEDS: MELATONIN 3 MG TABLET PO (22:22)
[2020-04-17] VITALS (10 sets, daily range): BP systolic 111–136; BP diastolic 60–74; PULSE 48–70; RESP 10–18; TEMP 36.1–36.7; O2SAT 93–97
[2020-04-17 05:38] LABS: Absolute Lymphocyte Count 2.72 X10^3/uL (0.83-4.51); Absolute Neutrophil Count 5.6 X10^3/uL (2.0-7.7); Basophil# 0.05 X10^3/uL; Basophil% 0.5 % (0-1); Eosinophil# 0.14 X10^3/uL; Eosinophils% 1.5 % (0-5); Hematocrit 37.6 % (40-54); Hemoglobin 12.1 g/dL (13.0-16.5); Lymphocyte # 2.72 X10^3/ul (4.0); Mean Corp Hgb Conc 32.2 g/dL (32-36); Mean Corpuscular Hgb 28.8 pg (27.0-32.0); Mean Corpuscular Volume 89.5 fL (80-94); Mean Platelet Vol. 10.2 fl (6.2-12.0); Monocyte# 0.88 X10^3/uL; Monocyte% 9.4 % (0-10); NRBC Flagged by Analyzer 0 % (0-5); Neutrophil # 5.56 X10^3/uL (2.7-7.7); Neutrophil % 59.3 % (47-70); Platelet Count 191 K/mm3 (150-450); RBC Distribution Width CV 13.4 % (11.6-14.6); RBC Distribution Width SD 44.3 fl (35.1-43.9); White Blood Count 9.4 K/mm3 (4.4-11.0)
[2020-04-17 06:06] LABS: Anion Gap 7 (5-15); BUN 51 mg/dL (7-18); BUN/Creat Ratio 28.5 RATIO (10-20); Calcium,Total 8.5 mg/dL (8.5-10.1); Chloride 107 mmol/L (98-107); Creatinine, Serum 1.79 mg/dL (0.70-1.30); EST Glomerular Filtration Rate 40 mL/min (>60); Est Glom Filt Rate - Afr Amer 49 mL/min (>60); Estimated Creatinine Clearance 36.93 ml/min; Glucose 103 mg/dL (74-106); Potassium 3.8 mmol/L (3.5-5.1); Sodium Level 140 mmol/L (136-145)
[2020-04-17] MEDS: ICOSAPENT ETHYL 1 GM CAPSULE 2 GM PO ×2 (09:55→21:45)
[2020-04-17] MEDS: Furosemide 40 MG/4 ML Vial IV (09:55)
[2020-04-17] MEDS: Carvedilol 12.5 MG Tablet PO ×2 (09:56→21:45)
[2020-04-17] MEDS: Isosorbide Mononitrate 60 MG Tablet PO (09:56)
[2020-04-17] MEDS: Enoxaparin 40 MG/0.4 ML Syringe SC (09:56)
[2020-04-17] MEDS: Clopidogrel Bisulfate 75 MG Tablet PO (09:57)
[2020-04-17] MEDS: Aspirin 81 MG TAB.CHEW PO (09:57)
--- NOTE | 2020-04-17 11:17 | PCM.PN.CARD ---
Subjectve: The patient is now in the PCU. He states he is feeling better overall. He has been up in his room but has not been ambulating in the hallway. Objective: Vital Signs Temp Pulse Resp BP Pulse Ox 97.1 F L 59 L 16 136/73 H 96 04/17/20 09:58 04/17/20 09:58 04/17/20 09:58 04/17/20 09:58 04/17/20 09:58 Oxygen Flow Rate (L/min) 2 Oxygen Delivery Method Room Air Weight: 196 lb 3.382 oz Body Mass Index (BMI) 31.6 Intake and Output for Last 24 Hours 04/15/20 04/16/20 04/17/20 23:59 23:59 23:59 Intake Total 720 / 720 1075 / 1075 0 / 0 Output Total 1500 / 1500 800 / 800 Balance -780 / -780 275 / 275 0 / 0 General: Awake, Alert, Oriented x 3, Cooperative, No Acute Distress HEENT: Atraumatic, Normocephalic, PERRL, EOMI, Sclera Non Icteric Neck: Supple, Good ROM, No JVD Lungs: Clear to auscultation Cardiovascular: Regular Rhythm, Premature Ectopic Beats, Normal S1, Normal S2 Abdomen: Bowel Sounds Present, Soft Extremities: No edema Psych/Mental Status: Appropriate 04/17/20 05:15: WBC 9.4, RBC 4.20 L, Hgb 12.1 L, Hct 37.6 L, MCV 89.5, MCH 28.8, MCHC 32.2, Plt Count 191, MPV 10.2, Immature Gran % (Auto) 0.300, Neut % (Auto) 59.3, Lymph % (Auto) 29.0, [place] % (Auto) 9.4, Eos % (Auto) 1.5, Baso % (Auto) 0.5, Absolute Neuts (auto) 5.6, Nucleated RBC % 0 04/17/20 05:15: Sodium 140, Potassium 3.8, Chloride 107, Carbon Dioxide 26.0, Anion Gap 7, BUN 51 H, Creatinine 1.79 H, Est GFR (MDRD) Af Amer 49 L, Est GFR (MDRD) Non-Af 40 L, BUN/Creatinine Ratio 28.5 H, Glucose 103, Calcium 8.5 Rhythm: Sinus rhythm; PVCs; of note the patient demonstrates findings compatible with a rate related bundle branch block ECHO: Interpretation Summary Severely dilated left ventricle. Severe segmental systolic dysfunction (see wall motion). The estimated ejection fraction is 20 %. Septal motion consistent with IVCD. Apical false tendon noted. The left atrium is mildly enlarged. Mild (1+) mitral valve insufficiency. Trivial tricuspid valve insufficiency. Mildly dilated aortic root. Unable to assess diastolic dysfunction. ICD or pacer leads identified within the right atrium ICD or pacer leads identified within the right ventricle. Medical Necessity - Tobacco Use Smoking Status: Current every day smoker Tobacco Use: Cigarettes Assessment/Plan 1. Acute on chronic systolic mediated CHF At the present time the patient presents with concerns of acute on chronic systolic mediated CHF leading to an acute respiratory event with hypoxemia. He states this may be secondary to a recent decrease in his diuretic therapy. At the moment he is in the PCU. He is being monitored. He has been treated with IV furosemide. He has had increased urinary output. He states overall he is feeling much better. His O2 saturations have improved. This morning he was not wearing O2 nasal cannula upon evaluation. Overall, he will continue medical therapy including changing his IV diuretics to oral diuretics. 2. Ischemic mediated cardiomyopathy He does have an underlying ischemic mediated cardiomyopathy. He has diminished LV systolic function/LVEF despite his medical therapy and revascularization therapy, etc. He will continue to be evaluated and treated as deemed appropriate. He is been reassessed noninvasively with a transthoracic echocardiogram. His overall LV systolic function/LVEF remains decreased. 3. CAD status post PCI His most recent CAD evaluation was in November of this year. He underwent subsequent PCI to the LCx/OM system. At the present time he will continue to be followed. He has not demonstrated symptoms of acute coronary syndrome. His cardiac enzymes may be reflective of a type II event secondary to his volume overload superimposed upon his underlying cardiomyopathy. At the moment he will continue conservative medical management. There are no immediate plans for a return trip to the cardiac catheterization laboratory at this time. As he recuperates from his current event he will be considered, as he was recently, for future outpatient pharmacologic stress nuclear imaging study as deemed appropriate. 4. PVT He does have a history of ventricular ectopy. He has been treated medically and has undergone revascularization therapy. He has an ICD in place. 5. ICD He will continue to be monitored with respect to his cardiac rate and rhythm. He states his ICD has not discharged. He can be reassessed as needed. 6. Hyperlipidemia He will continue risk factor modification medical management. 7. Hypertension His blood pressure will be followed. His medications may need to be adjusted to bring his blood pressure under better control. 8. Diabetes mellitus He will continue evaluation care per internal medicine. 9. Chronic renal insufficiency He does have an element of chronic renal insufficiency. This will need to be monitored as his clinical course progresses especially if he needs repeat evaluation in the cardiac catheterization laboratory based on concerns of IV contrast related nephropathy. At the present time the patient will be monitored, have his diuretics change, be asked to be up and ambulating and monitor his symptoms, with the hopes if he remains symptomatically/clinically stable he will be able to return home in the near future for continued outpatient follow-up. Comment: The patient's case has been discussed and reviewed with the patient. This note was generated using a voice recognition system and there may be incorrect words, spelling or punctuation that were not noted when reviewing the office note prior to saving.
--- NOTE | 2020-04-17 11:21 | PCM.PN.HOSP ---
Subjective: Patient seen and examined. He feels well and also air. He had no complaints. Shortness of breath had resolved and review of symptoms otherwise negative. Labs and vitals reviewed. He has remained hemodynamically stable. Vitals/I&O's: Vital Signs Temp Pulse Resp BP Pulse Ox 97.1 F L 59 L 16 136/73 H 96 04/17/20 09:58 04/17/20 09:58 04/17/20 09:58 04/17/20 09:58 04/17/20 09:58 Oxygen Flow Rate (L/min) 2 Oxygen Delivery Method Room Air Weight: 196 lb 3.382 oz Body Mass Index (BMI) 31.6 Intake and Output for Last 24 Hours 04/15/20 04/16/20 04/17/20 23:59 23:59 23:59 Intake Total 720 / 720 1075 / 1075 0 / 0 Output Total 1500 / 1500 800 / 800 Balance -780 / -780 275 / 275 0 / 0 General: Alert, Oriented x3, Cooperative, No apparent distress HEENT: Atraumatic, PERRLA, EOMI, Normocephalic Oral: Dry Mucosa Neck: Supple, No JVD, Negative Carotid Bruits Lungs: - - diminished breath sounds bibasally, few crackles. On room air. Cardiovascular: Regular rate, Regular Rhythm, Normal S1, Normal S2, No murmurs Abdomen: Bowel Sounds Present, Soft, Non Tender, Non-Distended, No Hepato-splenomegaly Extremities: No clubbing, No cyanosis, No edema, Capillary Refill Less than 3 Seconds Skin: No rashes, No breakdown Musculoskeletal: No Tenderness to Palpation of Joints or Extremities Lymphatic: No Cervical, Supraclavicular, or Inguinal Adenopathy Neurological: Cranial nerves II-XII grossly intact, Neuro grossly intact, Motor Exam 5/5 strength throughout Psych/Mental Status: Normal Affect, Appropriate, Alert and oriented to time, place, person, mood and affect Microbiology Past 72 Hours 04/15/20 08:50 Blood Culture (Wb) - Anticubital Right Blood Culture - Preliminary No growth in 48 hours. 04/15/20 08:50 Blood Culture (Wb) - Left Wrist Blood Culture - Preliminary No growth in 48 hours. 04/15/20 11:55 Urine, Clean Catch Urine Culture - Final Culture exhibits no growth. Laboratory Results 04/17/20 05:15: WBC 9.4, RBC 4.20 L, Hgb 12.1 L, Hct 37.6 L, MCV 89.5, MCH 28.8, MCHC 32.2, RDW Std Deviation 44.3 H, RDW Coeff of Jane 13.4, Plt Count 191, MPV 10.2, Immature Gran % (Auto) 0.300, Neut % (Auto) 59.3, Lymph % (Auto) 29.0, [place] % (Auto) 9.4, Eos % (Auto) 1.5, Baso % (Auto) 0.5, Absolute Neuts (auto) 5.6, Absolute Lymphs (auto) 2.72, Nucleated RBC % 0 04/17/20 05:15: Sodium 140, Potassium 3.8, Chloride 107, Carbon Dioxide 26.0, Anion Gap 7, BUN 51 H, Creatinine 1.79 H, Estim Creat Clear Calc 36.93, Est GFR (MDRD) Af Amer 49 L, Est GFR (MDRD) Non-Af 40 L, BUN/Creatinine Ratio 28.5 H, Glucose 103, Calcium 8.5 Current Medications Al Hydroxide/Mg Hydroxide (Mag Hydrox/Al Hydrox/Simeth 30 Ml Udc) 15 ml PO Q4H PRN PRN PRN Reason: DYSPEPSIA Last Admin: 04/15/20 20:37 Dose: 15 ml Documented by: Aspirin (Aspirin 81 Mg Tab.Chew) 81 mg PO DAILY [facility] Last Admin: 04/17/20 09:57 Dose: 81 mg Documented by: Carvedilol (Carvedilol 12.5 Mg Tablet) 12.5 mg PO BID [facility] Last Admin: 04/17/20 09:56 Dose: 12.5 mg Documented by: Clopidogrel Bisulfate (Clopidogrel Bisulfate 75 Mg Tablet) 75 mg PO DAILY [facility] Last Admin: 04/17/20 09:57 Dose: 75 mg Documented by: Enoxaparin Sodium (Enoxaparin 40 Mg/0.4 Ml Syringe) 40 mg SC DAILY [facility] Last Admin: 04/17/20 09:56 Dose: 40 mg Documented by: Furosemide (Furosemide 40 Mg Tablet) 40 mg PO BID@1000,1800 [facility] Isosorbide Mononitrate (Isosorbide Mononitrate 60 Mg Tablet) 60 mg PO DAILY [facility] Last Admin: 04/17/20 09:56 Dose: 60 mg Documented by: Melatonin (Melatonin 3 Mg Tablet) 3 mg PO QHS PRN PRN PRN Reason: SLEEP Last Admin: 04/16/20 22:22 Dose: 3 mg Documented by: Nitroglycerin (Nitroglycerin (Inpatient Use) 0.4 Mg Tab.Subl) 0.4 mg SUBLINGUAL Q5M PRN PRN Reason: CARDIAC/CHEST PAIN Ondansetron HCl (Ondansetron 4 Mg/2 Ml Vial) 4 mg IV Q8H PRN PRN PRN Reason: NAUSEA/VOMITING Rosuvastatin Calcium (Rosuvastatin Calcium 10 Mg Tablet) 10 mg PO QHS [facility] Last Admin: 04/16/20 22:19 Dose: 10 mg Documented by: Sodium Chloride (0.9% Saline Lock 10 Ml Syringe) 10 - 40 ml IV UD PRN PRN Reason: SALINE FLUSH Last Admin: 04/16/20 16:49 Dose: 5 ml Documented by: STROKE Vital Signs/Narrative: Vital Signs Temp Pulse Resp BP Pulse Ox 04/17/20 09:58 97.1 F L 59 L 16 136/73 H 96 Medical Necessity - Tobacco Use Smoking Status: Current every day smoker Tobacco Use: Cigarettes Assessment/Plan All Active Problems (Last Reviewed 03/28/20 @ 11:52 by Leyla Rodrigez) Troponin I above reference range (Acute) 69 y/o admitted with a complaint of shortness of breath. # Acute hypoxic respiratory failure due to acute on chronic HFrEF now on room air. feeling very well on IV lasix 40mg bid. Will switch to PO lasix today cardiology on board #Acute exacerbation of HFrEF: Management as above. The echo in October 2019 showed EF of 25%. #elevated troponin: likely due to demand ischemia from heart failure. Cardiology on board.advocate conservative management i #Lactic acidosis: resolved. # CAD s/p stents: On aspirin and Plavix as well as Imdur and icosapent. Also on rosuvastatin. #Lipidemia: On statin #CKD stage III: Creatinine is 1.79 today. #Type 2 diabetes mellitus: Not on any meds. Likely diet controlled. Insulin sliding scale. Checks AC at bedtime. DVT prophylaxis: lovenox Code status: Full code Inpatient E&M: 02074 Subs Hosp L2
[2020-04-17] MEDS: Furosemide 40 MG Tablet PO (16:52)
[2020-04-18] VITALS (7 sets, daily range): BP systolic 115–132; BP diastolic 63–73; PULSE 52–58; RESP 12–16; TEMP 36.4–36.7; O2SAT 93–98
--- NOTE | 2020-04-18 04:46 | EKG12_ITS ---
Test Reason : AM EKG Blood Pressure : / mmHG Vent. Rate : 053 BPM Atrial Rate : 053 BPM P-R Int : 200 ms QRS Dur : 190 ms QT Int : 536 ms P-R-T Axes : 015 -23 114 degrees QTc Int : 502 ms Sinus bradycardia Left bundle branch block Abnormal ECG When compared with ECG of 15-APR-2020 09:01, MANUAL COMPARISON REQUIRED, DATA IS UNCONFIRMED Confirmed by ZOILA RATLIFF, JERARDO ([id number]), electronic news gathering editor SANDRA MADDOX ([id number]) on 04/19/2020 11:13:40 AM Referred By: Pratik Yoder Confirmed By:JERARDO CUMMINGS MD
[2020-04-18 05:37] LABS: Absolute Lymphocyte Count 1.79 X10^3/uL (0.83-4.51); Absolute Neutrophil Count 4.2 X10^3/uL (2.0-7.7); Basophil# 0.04 X10^3/uL; Basophil% 0.6 % (0-1); Eosinophil# 0.17 X10^3/uL; Eosinophils% 2.4 % (0-5); Hematocrit 39.5 % (40-54); Hemoglobin 12.8 g/dL (13.0-16.5); Lymphocyte # 1.79 X10^3/ul (4.0); Mean Corp Hgb Conc 32.4 g/dL (32-36); Mean Corpuscular Hgb 29.2 pg (27.0-32.0); Mean Platelet Vol. 10.6 fl (6.2-12.0); Monocyte# 0.92 X10^3/uL; Monocyte% 12.8 % (0-10); NRBC Flagged by Analyzer 0 % (0-5); Neutrophil # 4.21 X10^3/uL (2.7-7.7); Neutrophil % 58.8 % (47-70); Platelet Count 190 K/mm3 (150-450); RBC Distribution Width CV 13.2 % (11.6-14.6); RBC Distribution Width SD 43.5 fl (35.1-43.9); Red Blood Count 4.39 M/mm3 (4.6-6.2); White Blood Count 7.2 K/mm3 (4.4-11.0)
[2020-04-18 06:06] LABS: Anion Gap 7 (5-15); BUN 48 mg/dL (7-18); BUN/Creat Ratio 28.2 RATIO (10-20); Calcium,Total 8.6 mg/dL (8.5-10.1); Chloride 105 mmol/L (98-107); EST Glomerular Filtration Rate 43 mL/min (>60); Est Glom Filt Rate - Afr Amer 52 mL/min (>60); Estimated Creatinine Clearance 38.88 ml/min; Glucose 136 mg/dL (74-106); Potassium 3.7 mmol/L (3.5-5.1); Sodium Level 140 mmol/L (136-145)
[2020-04-18] MEDS: Furosemide 40 MG Tablet PO (09:54)
[2020-04-18] MEDS: Aspirin 81 MG TAB.CHEW PO (09:54)
[2020-04-18] MEDS: Carvedilol 12.5 MG Tablet PO (09:54)
[2020-04-18] MEDS: ICOSAPENT ETHYL 1 GM CAPSULE 2 GM PO (09:55)
[2020-04-18] MEDS: Enoxaparin 40 MG/0.4 ML Syringe SC (09:55)
[2020-04-18] MEDS: Clopidogrel Bisulfate 75 MG Tablet PO (09:55)
[2020-04-18] MEDS: Isosorbide Mononitrate 60 MG Tablet PO (09:55)
--- NOTE | 2020-04-18 11:00 | DCINST_ITS ---
- Discharge Diagnoses Current Active Problems: Current Active and Chronic Problems (Last Reviewed 03/28/20 @ 11:52 by Leyla Rodrigez) Acute CHF (congestive heart failure) (Chronic) Hypoxia (Chronic) CKD (chronic kidney disease) stage 3, GFR 30-59 ml/min (Chronic) Type 2 diabetes mellitus (Chronic) Presence of stent in coronary artery (Chronic 11/10/19) PTCA/YUDY to LCX and PTCA/YUDY to mid and distal RCA 06/22/11; Successful PTCA/YUDY to proximal/mid PL branch of RCA with a 3.0 x 38 Promus Synergy, post dilated proximally with a 3.5 x 8 NC Balloon; 75%-->0%, no dissection 05/22/19. Successful PTCA/YUDY mid LCX with a 2.25 x 28 Promus Synergy, followed immediately downstream with a 2.25 x 8 Promus Synergy; 75%-->0%, no dissection. Successful PTCA/YUYD of proximal LCX with a 2.5 x 8 Promus Synergy, post dilated with a 3.0 x 8 NC balloon; 75%-->0%. no dissection. 11/10/2019 Pure hypercholesterolemia (Chronic) Essential (primary) hypertension (Chronic) Automatic implantable cardiac defibrillator in situ (Chronic) Cardiomyopathy in other diseases classified elsewhere (Chronic) Ventricular tachycardia (Chronic) Atherosclerotic heart disease of [place] coronary artery without angina pectoris (Chronic) You will use the following diet at home:: Cardiac, Fluid restricted (specify 2000 mls, 1500 mls) - 1500 mls Your food should be the consistency of: Regular Your liquids should be the consistency of: Regular/Thin Discharge Activity: Return to Normal Activity Additional Instructions: Continue to take all your medications as prescribed. Take note of changes to your medication. Continue on a low-fat low-salt diet. Restrict your total fluid intake to less than 1500 mils. Weigh yourself every day. Let your doctor know when you gain more than 2 pounds of weight. Follow-up with your primary care doctor in 1 to 2 weeks. Follow-up with the clinical administrator in 2 weeks. You would need repeat blood work to check on your kidney function within a week of discharge. Allergies/Adverse Reactions: Allergies FRANK Inhibitors Allergy (Verified 03/28/20 11:49) cough atorvastatin [From Lipitor] Allergy (Verified 03/28/20 11:49) myalgia gabapentin [From Neurontin] Allergy (Verified 03/28/20 11:49) numbness Penicillins Allergy (Verified 03/28/20 11:49) Hives Sulfa (Sulfonamide Antibiotics) Allergy (Verified 03/28/20 11:49) Hives bupropion Adverse Reaction (Verified 04/15/20 14:45) headaches and borderline psychotic Medications to take at Discharge Aspirin [Aspirin, Baby] 81 mg PO DAILY@0800 09/10/14 rosuvastatin 10 mg tablet 10 mg PO QHS 09/22/19 icosapent ethyl 1 gram capsule 1 g PO DAILY 03/28/20 nitroglycerin 0.4 mg sublingual tablet 0.4 mg SUBLINGUAL Q5M PRN #25 tab 03/28/20 Carvedilol 12.5 mg PO BID 04/15/20 Clopidogrel Bisulfate [Clopidogrel] 75 mg PO DAILY 04/15/20 Icosapent Ethyl [Vascepa] 2 gm PO QHS 04/15/20 Isosorbide Mononitrate [Isosorbide Mononitrate ER] 60 mg PO DAILY 04/15/20 Melatonin 5 mg PO QHS PRN 04/15/20 Furosemide [Lasix] 40 mg PO BID@1000,1800 30 Days #60 tab 04/18/20 The following prescriptions were given: Furosemide [Lasix] 40 mg PO BID@1000,1800 30 Days #60 tab Transmission Status: Pending to [id number] Primary Care Physician: Eleuterio Abreu Chi, MD [Primary Care Provider] - Please follow up with your Primary Care Physician in: within 2 weeks Test Results: Test results from this visit will be discussed in further detail at your follow- up appointment, if applicable. Please Follow Up With: Pratik Yoder MD When: in 2 weeks Proposed Discharge Date: 04/18/20
--- NOTE | 2020-04-18 11:08 | PCM.DC.SUM ---
Discharge Date and Diagnosis Date of Admission: 04/15/20 Date of Discharge: 04/18/20 - Primary Discharge Diagnosis Acute Problems: Acute on chronic heart failure with reduced EF exacerbation, EF of 20% Acute hypoxic respiratory failure secondary to acute on chronic heart failure with reduced EF Elevated troponin, secondary to demand ischemia from heart failure Lactic acidosis - Secondary Discharge Diagnosis Chronic Problems: Chronic Problems (Last Reviewed 03/28/20 @ 11:52 by Leyla Rodrigez) Acute CHF (congestive heart failure) (Chronic) Hypoxia (Chronic) CKD (chronic kidney disease) stage 3, GFR 30-59 ml/min (Chronic) Type 2 diabetes mellitus (Chronic) Presence of stent in coronary artery (Chronic 11/10/19) PTCA/YUDY to LCX and PTCA/YUDY to mid and distal RCA 06/22/11; Successful PTCA/YUDY to proximal/mid PL branch of RCA with a 3.0 x 38 Promus Synergy, post dilated proximally with a 3.5 x 8 NC Balloon; 75%-->0%, no dissection 05/22/19. Successful PTCA/YUDY mid LCX with a 2.25 x 28 Promus Synergy, followed immediately downstream with a 2.25 x 8 Promus Synergy; 75%-->0%, no dissection. Successful PTCA/YUDY of proximal LCX with a 2.5 x 8 Promus Synergy, post dilated with a 3.0 x 8 NC balloon; 75%-->0%. no dissection. 11/10/2019 Pure hypercholesterolemia (Chronic) Essential (primary) hypertension (Chronic) Other intermediate (current) drug therapy (Chronic) Automatic implantable cardiac defibrillator in situ (Chronic) Cardiomyopathy in other diseases classified elsewhere (Chronic) Blurred vision (Chronic) Ventricular tachycardia (Chronic) Atherosclerotic heart disease of [place] coronary artery without angina pectoris (Chronic) Hospital Course and Treatment Imaging Results: Clinical Impression(s) from Imaging Studies Chest X-Ray 04/15/20 09:15 IMPRESSION: Mild cardiomegaly and CHF. Electronically Signed: Keenan Gardner, at 9:57 EST , Service support , Chest CTA 04/15/20 10:32 IMPRESSION: Small bilateral pleural effusions with bibasilar atelectasis and/or early infiltrate superimposed on increased interstitial markings and septal markings suggestive of possible superimposed mild degree of CHF. Electronically Signed: Keenan Gardner, at 12:29 EST , Service support , Cardiology Operations: None Procedures: 2-D Echocardiogram Summary of Care Provided: The patient is a 69 year old M past medical history of chronic heart failure with reduced EF who comes in with a 2-day history of shortness of breath that has been progressively getting worse. Patient was saturating in the 70s in the ED and was initially managed on BiPAP. He had alert trach acid of 7.6, creatinine of 1.74, troponin of 0.160. Chest x-ray showed cardiomegaly with CHF. His BNP up was 1630.4. Patient was admitted to the progressive care unit, continued on BiPAP, later transitioned to oxygen, continued on IV Lasix with good improvement. 2D echo showed an EF of 20%, severe systolic disease function. Cardiology was consulted. He continued to improve and was off oxygen at discharge. At discharge, patient was given CHF education. He will follow-up with cardiology in 2 weeks as well as with his primary care doctor. He knows that he has to repeat his blood work within a week to check on kidney function Subjective: On the day of discharge, patient was seen and examined. Denied any new complaints. He was ambulated and did not qualify for oxygen. Objective: Physical exam: General: Alert, Oriented x3, Cooperative, No apparent distress HEENT: Atraumatic, PERRLA, EOMI, Normocephalic Oral: Dry Mucosa Neck: Supple, No JVD, Negative Carotid Bruits Lungs: - -Clinically clear to auscultation Cardiovascular: Regular rate, Regular Rhythm, Normal S1, Normal S2, No murmurs Abdomen: Bowel Sounds Present, Soft, Non Tender, Non-Distended, No Hepato-splenomegaly Extremities: No clubbing, No cyanosis, No edema, Capillary Refill Less than 3 Seconds Skin: No rashes, No breakdown Musculoskeletal: No Tenderness to Palpation of Joints or Extremities Lymphatic: No Cervical, Supraclavicular, or Inguinal Adenopathy Neurological: Cranial nerves II-XII grossly intact, Neuro grossly intact, Motor Exam 5/5 strength throughout Psych/Mental Status: Normal Affect, Appropriate, Alert and oriented to time, place, person, mood and affect - Physical Exam Vitals/I&O's: Vital Signs Temp Pulse Resp BP Pulse Ox 97.6 F L 53 L 16 132/72 H 95 04/18/20 08:44 04/18/20 08:52 04/18/20 08:52 04/18/20 08:44 04/18/20 09:10 Oxygen Flow Rate (L/min) 2 Oxygen Delivery Method Room Air Weight: 88.3 kg Body Mass Index (BMI) 31.6 Intake and Output for Last 24 Hours 04/16/20 04/17/20 04/18/20 23:59 23:59 23:59 Intake Total 1075 / 1075 600 / 600 240 / 240 Output Total 800 / 800 Balance 275 / 275 600 / 600 240 / 240 Microbiology Past 72 Hours 04/15/20 08:50 Blood Culture (Wb) - Anticubital Right Blood Culture - Preliminary No growth in 48 hours. 04/15/20 08:50 Blood Culture (Wb) - Left Wrist Blood Culture - Preliminary No growth in 48 hours. 04/15/20 11:55 Urine, Clean Catch Urine Culture - Final Culture exhibits no growth. Laboratory Results 04/18/20 05:25: WBC 7.2, RBC 4.39 L, Hgb 12.8 L, Hct 39.5 L, MCV 90.0, MCH 29.2, MCHC 32.4, RDW Std Deviation 43.5, RDW Coeff of Jane 13.2, Plt Count 190, MPV 10.6, Immature Gran % (Auto) 0.400, Neut % (Auto) 58.8, Lymph % (Auto) 25.0, [place] % (Auto) 12.8 H, Eos % (Auto) 2.4, Baso % (Auto) 0.6, Absolute Neuts (auto) 4.2, Absolute Lymphs (auto) 1.79, Nucleated RBC % 0 04/18/20 05:25: Sodium 140, Potassium 3.7, Chloride 105, Carbon Dioxide 28.0, Anion Gap 7, BUN 48 H, Creatinine 1.70 H, Estim Creat Clear Calc 38.88, Est GFR (MDRD) Af Amer 52 L, Est GFR (MDRD) Non-Af 43 L, BUN/Creatinine Ratio 28.2 H, Glucose 136 H, Calcium 8.6 Current Medications Al Hydroxide/Mg Hydroxide (Mag Hydrox/Al Hydrox/Simeth 30 Ml Udc) 15 ml PO Q4H PRN PRN PRN Reason: DYSPEPSIA Last Admin: 04/15/20 20:37 Dose: 15 ml Documented by: Aspirin (Aspirin 81 Mg Tab.Chew) 81 mg PO DAILY [facility] Last Admin: 04/18/20 09:54 Dose: 81 mg Documented by: Carvedilol (Carvedilol 12.5 Mg Tablet) 12.5 mg PO BID [facility] Last Admin: 04/18/20 09:54 Dose: 12.5 mg Documented by: Clopidogrel Bisulfate (Clopidogrel Bisulfate 75 Mg Tablet) 75 mg PO DAILY [facility] Last Admin: 04/18/20 09:55 Dose: 75 mg Documented by: Enoxaparin Sodium (Enoxaparin 40 Mg/0.4 Ml Syringe) 40 mg SC DAILY [facility] Last Admin: 04/18/20 09:55 Dose: 40 mg Documented by: Furosemide (Furosemide 40 Mg Tablet) 40 mg PO BID@1000,1800 [facility] Last Admin: 04/18/20 09:54 Dose: 40 mg Documented by: Isosorbide Mononitrate (Isosorbide Mononitrate 60 Mg Tablet) 60 mg PO DAILY [facility] Last Admin: 04/18/20 09:55 Dose: 60 mg Documented by: Melatonin (Melatonin 3 Mg Tablet) 3 mg PO QHS PRN PRN PRN Reason: SLEEP Last Admin: 04/16/20 22:22 Dose: 3 mg Documented by: Nitroglycerin (Nitroglycerin (Inpatient Use) 0.4 Mg Tab.Subl) 0.4 mg SUBLINGUAL Q5M PRN PRN Reason: CARDIAC/CHEST PAIN Ondansetron HCl (Ondansetron 4 Mg/2 Ml Vial) 4 mg IV Q8H PRN PRN PRN Reason: NAUSEA/VOMITING Rosuvastatin Calcium (Rosuvastatin Calcium 10 Mg Tablet) 10 mg PO QHS [facility] Last Admin: 04/17/20 21:45 Dose: 10 mg Documented by: Sodium Chloride (0.9% Saline Lock 10 Ml Syringe) 10 - 40 ml IV UD PRN PRN Reason: SALINE FLUSH Last Admin: 04/16/20 16:49 Dose: 5 ml Documented by: Discharge Diet: Low fat/ Low Cholesterol, 6 Cup Fluid Restriction, 2000 mg Sodium Diet Discharge Activity: Return to Normal Activity Home Medications: Medications to take at Discharge Aspirin [Aspirin, Baby] 81 mg PO DAILY@0800 09/10/14 rosuvastatin 10 mg tablet 10 mg PO QHS 09/22/19 icosapent ethyl 1 gram capsule 1 g PO DAILY 03/28/20 nitroglycerin 0.4 mg sublingual tablet 0.4 mg SUBLINGUAL Q5M PRN #25 tab 03/28/20 Carvedilol 12.5 mg PO BID 04/15/20 Clopidogrel Bisulfate [Clopidogrel] 75 mg PO DAILY 04/15/20 Icosapent Ethyl [Vascepa] 2 gm PO QHS 04/15/20 Isosorbide Mononitrate [Isosorbide Mononitrate ER] 60 mg PO DAILY 04/15/20 Melatonin 5 mg PO QHS PRN 04/15/20 Furosemide [Lasix] 40 mg PO BID@1000,1800 30 Days #60 tab 04/18/20 Following Prescriptions Were Given to Patient: Furosemide [Lasix] 40 mg PO BID@1000,1800 30 Days #60 tab Transmission Status: Received by [facility] Primary Care Physician: Eleuterio Abreu Chi, MD [Primary Care Provider] - Please follow up with your Primary Care Physician in: within 2 weeks Please Follow Up With: Pratik Yoder MD When: in 2 weeks Disposition: Home Minutes spent on discharge:: 45 Patient Condition:: Stable Medical Necessity - Tobacco Use Smoking Status: Current every day smoker Tobacco Use: Cigarettes Meaningful Use Info Meaningful Use Diagnoses (Choose all that apply): CHF - CHF FRANK/ARB ordered at discharge?: No Reason FRANK/ARB not ordered?: Allergy Documented LVEF (%): 20 Inpatient E&M: 02115 Disch Hosp
--- NOTE | 2020-04-18 12:07 | PHA.DC.MC ---
Pharmacy Service has performed discharge medication reconciliation and counseling for this patient. The patient was counseled on the following discharge medications and changes in medications for homegoing were reviewed. 1. LASIX The Reason for Use, instructions for use, and potential side effects were reviewed for all new medications. The patient's questions regarding all of their medications were answered. The patient was able to verbally demonstrate an understanding of their discharge medications. Home Medications Aspirin [Aspirin, Baby] 81 mg PO DAILY@0800 09/10/14 rosuvastatin 10 mg tablet 10 mg PO QHS 09/22/19 icosapent ethyl 1 gram capsule 1 g PO DAILY 03/28/20 nitroglycerin 0.4 mg sublingual tablet 0.4 mg SUBLINGUAL Q5M PRN #25 tab 03/28/20 Carvedilol 12.5 mg PO BID 04/15/20 Clopidogrel Bisulfate [Clopidogrel] 75 mg PO DAILY 04/15/20 Icosapent Ethyl [Vascepa] 2 gm PO QHS 04/15/20 Isosorbide Mononitrate [Isosorbide Mononitrate ER] 60 mg PO DAILY 04/15/20 Melatonin 5 mg PO QHS PRN 04/15/20 Furosemide [Lasix] 40 mg PO BID@1000,1800 30 Days #60 tab 04/18/20 The patient's discharge medication list was reviewed for discrepancies and discrepancies were resolved.
[2020-04-19 09:50] LABS: Pathologist Review Reviewed
--- NOTE | 2020-04-19 14:16 | CASEMGMT ---
XIOMY STINSON Face to Face with patient for initial transition planning/care coordination assessment. RN MILAD introduced self and role at [facility]. Patient lying in bed, alert and oriented. Patient willing to participate in assessment and is able to answer all questions appropriately. Care providers, pharmacy, and demographics verified. Patient wishes to discharge home, denies need for home health at this time. Patient states he has no further needs or concerns at this time. CM to follow for discharge planning needs that may arise. PCP: Specialists: Preferred Pharmacy: Insurance: Prescription Benefit: Living Will/HPOA: LNOK: Living Arrangements: Transportation: DME/HHC: Disposition Plan: Anette FRITZ, RN, CM
--- NOTE | 2020-04-19 14:18 | CASEMGMT ---
XIOMY STINSON Discharge Follow-up Phone Call: EVELINAlda: Margie Strata: 3 Call Date: 04/19/20 Discharge Date: 04/18/20 Time of Call: 1415 Duration: 4 min Admitting Diagnosis: Acute hypoxic respiratory failure XIOMY STINSON completed follow-up phone after recent hospitalization. Patient states he is doing well. Patient had no questions regarding discharge instructions. Patient states he already had Lasix medication at home. Patient has follow-up appts schedule. Patient had no further questions or concerns at this time.
== END 2020-04-18 12:40 | disposition home or self-care (01) | DRG 291 ==
LOC: ED 09:28 → ICU 13:42 → PCU 04-18 06:39 → ICU 04-18 07:54 → PCU 04-18 07:54
PROVIDERS: Admitting Provider Student in an Organized Health Care Education/Training Program; Emergency Provider Student in an Organized Health Care Education/Training Program; PCP Family Medicine Geriatric Medicine; Visit Provider Internal Medicine
DX: I13.0 Hypertensive heart and chronic kidney disease with heart failure and stage 1 through stage 4 chronic kidney disease, or unspecified chronic kidney disease (principal); J96.01 Acute respiratory failure with hypoxia; I50.43 Acute on chronic combined systolic (congestive) and diastolic (congestive) heart failure; E87.2 Acidosis; I24.8 Other forms of acute ischemic heart disease; I25.10 Atherosclerotic heart disease of native coronary artery without angina pectoris; Z95.810 Presence of automatic (implantable) cardiac defibrillator; N18.30 Chronic kidney disease, stage 3 unspecified; E11.22 Type 2 diabetes mellitus with diabetic chronic kidney disease; F17.210 Nicotine dependence, cigarettes, uncomplicated; I25.5 Ischemic cardiomyopathy; E78.00 Pure hypercholesterolemia, unspecified; E78.5 Hyperlipidemia, unspecified; Z79.02 Long term (current) use of antithrombotics/antiplatelets; Z79.899 Other long term (current) drug therapy; Z95.5 Presence of coronary angioplasty implant and graft; Z66 Do not resuscitate
CPT/HCPCS: 36415; 36600; 71045; 71275; 80048; 80053; 81001; 82306; 82803; 83605; 83880; 84100; 84145; 84443; 84484; 85025; 85379; 85610; 85730; 87040; 87086; 87635; 93005; 93308; 94002; 97161; 97165; 99285; 99406; G0109; Q9957; Q9967; A4216; J1940; U0002

== ENCOUNTER → 2020-04-20 13:44 | Outpatient (CLI) | payer MEDICARE, OTHER, SELFPAY ==
[2020-02-18 06:00] VITALS: BMI 28.0
[2020-04-15 14:47] VITALS: BMI 31.6
[2020-04-20 18:14] LABS: Anion Gap 5 (5-15); BUN 42 mg/dL (7-18); BUN/Creat Ratio 22.5 RATIO (10-20); Calcium,Total 8.6 mg/dL (8.5-10.1); Chloride 106 mmol/L (98-107); Creatinine, Serum 1.87 mg/dL (0.70-1.30); EST Glomerular Filtration Rate 38 mL/min (>60); Est Glom Filt Rate - Afr Amer 46 mL/min (>60); Glucose 104 mg/dL (74-106); Potassium 4.2 mmol/L (3.5-5.1); Sodium Level 139 mmol/L (136-145)
== END ==
PROVIDERS: PCP Family Medicine Geriatric Medicine; Visit Provider Family Medicine Geriatric Medicine
DX: N17.9 Acute kidney failure, unspecified (principal)
CPT/HCPCS: 36415; 80048

== ENCOUNTER → 2020-04-25 09:42 | Outpatient (CLI) | payer MEDICARE, OTHER, SELFPAY ==
[2020-02-18 06:00] VITALS: BMI 28.0
[2020-04-15 14:47] VITALS: BMI 31.6
[2020-04-25 10:42] LABS: Anion Gap 6 (5-15); BUN 24 mg/dL (7-18); BUN/Creat Ratio 14.9 RATIO (10-20); Calcium,Total 8.6 mg/dL (8.5-10.1); Chloride 110 mmol/L (98-107); Creatinine, Serum 1.61 mg/dL (0.70-1.30); EST Glomerular Filtration Rate 46 mL/min (>60); Est Glom Filt Rate - Afr Amer 55 mL/min (>60); Glucose 109 mg/dL (74-106); Potassium 4.6 mmol/L (3.5-5.1); Sodium Level 142 mmol/L (136-145)
== END ==
PROVIDERS: PCP Family Medicine Geriatric Medicine; Visit Provider Internal Medicine Nephrology
DX: N17.9 Acute kidney failure, unspecified (principal)
CPT/HCPCS: 36415; 80048

== ENCOUNTER 2020-05-12 13:30 | Outpatient (RCR) | payer MEDICARE, OTHER, SELFPAY ==
[2020-02-18 06:00] VITALS: BMI 28.0
[2020-05-02 13:56] VITALS: BMI 26.9
== END 2020-05-12 23:59 | disposition home or self-care (01) ==
LOC: DC 13:30
PROVIDERS: PCP Family Medicine Geriatric Medicine; Visit Provider Internal Medicine Cardiovascular Disease
DX: Z71.3 Dietary counseling and surveillance (principal); E11.9 Type 2 diabetes mellitus without complications; E78.00 Pure hypercholesterolemia, unspecified; I10 Essential (primary) hypertension
CPT/HCPCS: G0109

== ENCOUNTER → 2020-05-13 06:18 | Outpatient (CLI) | payer MEDICARE, OTHER, SELFPAY ==
[2020-02-18 06:00] VITALS: BMI 28.0
[2020-03-28 11:49] VITALS: BMI 27.7
[2020-05-02 13:56] VITALS: BMI 26.9
--- NOTE | 2020-05-13 08:39 | STRESSREP ---
Stress Test Report Date: 05-13-2020 Procedure: Pharmacologic stress nuclear imaging study Indications: Angina pectoris; CAD; PCI; ischemic mediated cardiomyopathy; ICD Consent: Per the patient Procedure: The patient underwent pharmacologic (Regadenoson) evaluation with a peak heart rate of 83 beats per minute (54%predicted maximal heart rate) and a peak blood pressure of 130/80 mmHg. The baseline ECG demonstrated sinus rhythm; left bundle branch block. The peak pharmacologic ECG demonstrated no obvious ECG changes. There were no cardiac dysrhythmias pretest, during pharmacologic infusion, or recovery. There was no complaint of chest discomfort during pharmacologic infusion or recovery. The examination was discontinued secondary to completion of protocol. Impression: 1. Pharmacologic (Regadenoson) evaluation 2. Peak pharmacologic ECG with continued left bundle branch block with no obvious ECG changes. 3. There were no cardiac dysrhythmias pretest, during pharmacologic infusion, or recovery. 4. Nuclear images pending Myocardial perfusion imaging study: Technique: The patient was injected with 11.3 millicuries of technetium 99m Cardiolite and subsequently rest SPECT Cardiolite nuclear imaging was obtained in the horizontal long, vertical long, and short axis views. The patient underwent pharmacologic (Regadenoson) evaluation with a peak heart rate of 83 beats per minute (54% percent predicted maximal heart rate) and a peak blood pressure of 130/80 mmHg. The patient was injected with 34.5 millicuries of technetium 99m Cardiolite and subsequently stress SPECT Cardiolite nuclear imaging was obtained in the horizontal long, vertical long, and short axis views. A gated Cardiolite study at peak stress was obtained. Interpretation: Rest and stress SPECT Cardiolite nuclear imaging status post realignment, normalization, and attenuation correction demonstrate at rest the appearance of relative uniform tracer uptake and status post stress the appearance of diminished tracer uptake in portions of the mid to distal anterior/anteroseptal segments as well as myocardial perfusion changes compatible with left ventricular dilatation. There is diminished end systolic thickening and brightening. The gated Cardiolite study demonstrates diminished myocardial thickening and inward wall motion. The reported LVEF is 19%. Impression: 1. Rest and stress SPECT Cardiolite nuclear imaging demonstrate myocardial perfusion changes concerning for an area of stress-induced myocardial ischemia in portions of the mid to distal anterior/anteroseptal segments as well as myocardial perfusion changes compatible with left ventricular dilatation. 2. The gated Cardiolite study reports an LVEF of 19%. This note was generated with [employer]ation software. It may contain incorrect words, spelling, and punctuation that were not noted in checking the note before signing.
== END ==
PROVIDERS: PCP Family Medicine Geriatric Medicine; Referring Provider Nurse Practitioner Family; Visit Provider Nurse Practitioner Family
DX: I25.10 Atherosclerotic heart disease of native coronary artery without angina pectoris (principal); Z95.5 Presence of coronary angioplasty implant and graft; E78.00 Pure hypercholesterolemia, unspecified; I10 Essential (primary) hypertension; I43 Cardiomyopathy in diseases classified elsewhere
CPT/HCPCS: 78452; 93017; A9500; A4216; J2785

== ENCOUNTER → 2020-05-16 12:34 | Outpatient (CLI) | payer MEDICARE, OTHER, SELFPAY ==
[2020-02-18 06:00] VITALS: BMI 28.0
[2020-05-02 13:56] VITALS: BMI 26.9
[2020-05-16 13:09] LABS: Absolute Lymphocyte Count 1.91 X10^3/uL (0.83-4.51); Absolute Neutrophil Count 5.5 X10^3/uL (2.0-7.7); Basophil# 0.04 X10^3/uL; Basophil% 0.4 % (0-1); Eosinophil# 0.33 X10^3/uL; Eosinophils% 3.7 % (0-5); Hematocrit 43.4 % (40-54); Hemoglobin 14.2 g/dL (13.0-16.5); Lymphocyte # 1.91 X10^3/ul (4.0); Lymphocyte % 21.3 % (19-41); Mean Corp Hgb Conc 32.7 g/dL (32-36); Mean Corpuscular Hgb 30.1 pg (27.0-32.0); Mean Corpuscular Volume 92.1 fL (80-94); Mean Platelet Vol. 10.7 fl (6.2-12.0); Monocyte# 1.13 X10^3/uL; Monocyte% 12.6 % (0-10); NRBC Flagged by Analyzer 0 % (0-5); Neutrophil # 5.52 X10^3/uL (2.7-7.7); Neutrophil % 61.4 % (47-70); Platelet Count 177 K/mm3 (150-450); RBC Distribution Width CV 13.3 % (11.6-14.6); RBC Distribution Width SD 45.4 fl (35.1-43.9); Red Blood Count 4.71 M/mm3 (4.6-6.2)
[2020-05-16 13:57] LABS: Anion Gap 5 (5-15); BUN 33 mg/dL (7-18); BUN/Creat Ratio 19.8 RATIO (10-20); Chloride 107 mmol/L (98-107); Creatinine, Serum 1.67 mg/dL (0.70-1.30); EST Glomerular Filtration Rate 44 mL/min (>60); Est Glom Filt Rate - Afr Amer 53 mL/min (>60); Glucose 99 mg/dL (74-106); Potassium 4.3 mmol/L (3.5-5.1); Sodium Level 139 mmol/L (136-145)
== END ==
PROVIDERS: PCP Family Medicine Geriatric Medicine; Referring Provider Nurse Practitioner Family; Visit Provider Nurse Practitioner Family
DX: R94.39 Abnormal result of other cardiovascular function study (principal); I10 Essential (primary) hypertension; I43 Cardiomyopathy in diseases classified elsewhere; I25.10 Atherosclerotic heart disease of native coronary artery without angina pectoris; Z95.5 Presence of coronary angioplasty implant and graft
CPT/HCPCS: 36415; 80048; 85025; 85610

== ENCOUNTER 2020-05-24 07:51 | Day surgery (SDC) | payer MEDICARE, OTHER, SELFPAY ==
[2020-02-18 06:00] VITALS: BMI 28.0
[2020-05-02 13:56] VITALS: BMI 26.9
[2020-05-23 07:03] VITALS: BMI 26.9
--- NOTE | 2020-05-24 07:48 | HP_ITS ---
HPI HPI History of Present Illness Details: LAUREL DARLING, is a 69 year old white male who presents to the office today for a hospital follow-up with history of coronary artery disease with multiple stents, ischemic mediated cardiomyopathy, PVT, ICD, hyperlipidemia, and hypertension. He states he trailed Enstresto but was discontinued presumably d/t kidney disease. He states SOB with activity. This appears to be improved since hospitalization. He states he changed he changed his Lasix to 20mg BID, after feeling well. He state mild chest discomfort. There does not appear to be a specific aggravating factor. This is intermittent. This is located in the center of his chest. This improves with rest. Pt denies arm, jaw, or neck discomfort. His exercise tolerance is stable. Pt states symptoms of palpitations, lightheadedness, or dizziness. He denies near syncopal or syncopal episodes. Pt denies edema or claudication issues. He states orthopnea that he describes as he forgets to breath intermittently. Pt. denies PND, fever, chills, blood in urine, blood in stool, myalgia, or unexplainable fatigue. 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 Accompanied by: None Is patient in pain?: No Allergies FRANK Inhibitors Allergy (Verified 05/02/20 13:52) cough atorvastatin [From Lipitor] Allergy (Verified 05/02/20 13:52) myalgia gabapentin [From Neurontin] Allergy (Verified 05/02/20 13:52) numbness Penicillins Allergy (Verified 05/02/20 13:52) Hives Sulfa (Sulfonamide Antibiotics) Allergy (Verified 05/02/20 13:52) Hives bupropion Adverse Reaction (Verified 05/02/20 13:52) headaches and borderline psychotic Medications Aspirin [Aspirin, Baby] 81 mg PO DAILY@0800 09/10/14 [History Confirmed 05/02/20] rosuvastatin 10 mg tablet 10 mg PO QHS 09/22/19 [History Confirmed 05/02/20] icosapent ethyl 1 gram capsule 1 g PO DAILY 03/28/20 [History Confirmed 05/02/20] nitroglycerin 0.4 mg sublingual tablet 0.4 mg SUBLINGUAL Q5M PRN #25 tab 03/28/20 [Rx Confirmed 05/02/20] Carvedilol 12.5 mg PO BID 04/15/20 [History Confirmed 05/02/20] Clopidogrel Bisulfate [Clopidogrel] 75 mg PO DAILY 04/15/20 [History Confirmed 05/02/20] Isosorbide Mononitrate [Isosorbide Mononitrate ER] 60 mg PO DAILY 04/15/20 [History Confirmed 05/02/20] Melatonin 5 mg PO QHS PRN 04/15/20 [History Confirmed 05/02/20] Handicap Placard 1 unit MISCELLANEOUS .COMPLEX #1 unit 05/02/20 [Rx Confirmed 05/02/20] ergocalciferol (vitamin D2) 1,250 mcg (50,000 unit) capsule 1,250 mcg PO QWEEK 05/02/20 [History Confirmed 05/02/20] furosemide 40 mg tablet 20 mg PO BID tab 05/02/20 [History Confirmed 05/02/20] [facility] Medical History (Updated 04/15/20 @ 17:[address] 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) Automatic implantable cardiac defibrillator in situ (Chronic) Cardiomyopathy in other diseases classified elsewhere (Chronic) Abnormal echocardiogram (Inactive) Abnormal myocardial perfusion study (Inactive) Blurred vision (Chronic) Chest tightness (Inactive) Ventricular tachycardia (Chronic) Atherosclerotic heart disease of [place] coronary artery without angina pectoris (Chronic) Acute [place], subendocardial, subsequent episode of care (Inactive) Surgical History History of herniorrhaphy (Chronic) Presence of coronary angioplasty implant and graft (Chronic ~05/22/19) Family History Father Myocardial infarction, Onset Age: 70 CAD (coronary artery disease) Hx of CABG Mother CAD (coronary artery disease) Diabetes Pacemaker Brother Myocardial infarction age of onset 40s Sister Myocardial infarction, Onset Age: 62 Rheumatic fever Son Hypertension Diabetes Daughter Diabetes Social History (Updated 05/02/20 @ 15:37 by Hernando Funez GEOTECHNICAL FIELD TECHNICIAN, GEOTECHNICAL FIELD TECHNICIAN-C) Smoking Status: Current every day smoker second hand exposure: No alcohol intake: current alcohol intake frequency: a few times a week substance use type: does not use caffeine: Yes Type: coffee Number of servings: 2 what type of physical activity do you participate in: none ROS Const Const: Negative for fatigue, weakness, body ache, fever(s) or chills ENT ENT: Positive for dizziness Cardio Chest Pain: Yes Palpitations: Yes Edema: None Muscle aches with walking: None Resp Respiratory: Positive for SOB with activity; negative for SOB at rest, SOB orthopnea\SOB lying down or paroxysmal nocturnal dyspnea GI GI: Negative nausea, vomiting blood/hematemesis, bright, red blood in stools or black,tarry stools : Negative for hematuria or frequent nighttime urination/ nocturia Musc Musc: Negative for muscle aches/ myalgia Skin Skin: Negative non-healing lesions or rash Neuro Neuro: Positive for dizziness and lightheadedness; negative for near syncope, syncope, orthostatic symptoms or weakness Endo Endo: Negative for fatigue Allergy Allergy/Immunology: Negative for rash Cardiology Exam Const Appearance: cooperative, healthy appearing, comfortable and no acute distress Nutritional Appearance: well nourished and overweight Orientation: alert, awake and oriented x3 Head Head: normal to inspection Ears: hearing grossly normal bilaterally Nose: external nose normal Face and Sinus: face symmetric Mouth: oral mucosae normal Eyes General: appearance normal, both eyes and all related structures Eyelids: eyelids normal EOM: EOM intact bilaterally Neck Neck: normal visual inspection and no JVD Carotids: normal carotid upstroke Chest Chest inspection: normal inspection of the chest, symmetric chest movement and normal respiratory effort; negative cough Auscultation: Bilateral: Clear to Auscultation Cardio Rate: regular rate Rhythm: regular rhythm Heart sounds: S1 normal and S2 normal; negative rub, gallop or murmur GI GI: normal to inspection Neuro General: alert, awake, oriented x3 and CN's II-XI intact bilaterally Skin Skin: no rashes or lesions noted Extremities Pulses: Normal: Right Posterior Tibial Pulse, Left Posterior Tibial Pulse, Right Radial Pulse, Left Radial Pulse Lower Extremity Edema: None: Bilateral Psych Psychological: normal affect Assessment & Plan 1. Atherosclerosis of [place] coronary artery of [place] heart without angina pectoris I25.10 Plan Patient's chest pain has typical and atypical features for coronary artery disease. Given his multiple hospitalizations for congestive heart failure and ongoing symptoms, he was asked undergo a stress test to evaluate further. Based on results, further recommendation be made. Orders Orders: Nuclear Stress Test - Chemical Today Medications New: [Handicap Placard] 1 Handicap Placard; Good from 05/02/2020-05/02/2025; Good from 05/02/2020-05/02/2025 1 unit 0RF 2. Presence of stent in coronary artery Z95.5 PTCA/YUDY to LCX and PTCA/YUDY to mid and distal RCA 06/22/11; Successful PTCA/YUDY to proximal/mid PL branch of RCA with a 3.0 x 38 Promus Synergy, post dilated proximally with a 3.5 x 8 NC Balloon; 75%-->0%, no dissection 05/22/19. Successful PTCA/YUDY mid LCX with a 2.25 x 28 Promus Synergy, followed immediately downstream with a 2.25 x 8 Promus Synergy; 75%-->0%, no dissection. Successful PTCA/YUDY of proximal LCX with a 2.5 x 8 Promus Synergy, post dilated with a 3.0 x 8 NC balloon; 75%-->0%. no dissection. 11/10/2019 Plan This will be reassessed with upcoming stress test. Orders Orders: Nuclear Stress Test - Chemical Today Medications New: [Handicap Placard] 1 Handicap Placard; Good from 05/02/2020-05/02/2025; Good from 05/02/2020-05/02/2025 1 unit 0RF 3. Cardiomyopathy in other diseases classified elsewhere I43 Plan His most recent echocardiogram in April 2020 showed an ejection fraction of 20%. His most recent heart catheterization November 2019 resulted in PCI. Patient is not on FRANK inhibitor/ARB/ARNI presume due to chronic kidney disease. His heart rate is on the lower side of normal. Red flags in regards to fluid volume overload were reviewed with him. He was informed if develops any such symptoms or other concerns to contact our office to consider adjusting diuretic therapy. His kidney function need to be monitored closely. Long-term options may include increasing carvedilol therapy to maximal dose of 25 mg p.o. twice daily. His EKG today in office shows sinus bradycardia with left bundle branch block with a QTC of 45 and a QRS of 172. Another long-term option may include TESTING AND REGULATING CHIEF?D device. At this time, he appears to be [place] Heart Association functional class II. Orders Orders: Nuclear Stress Test - Chemical Today 4. Automatic implantable cardiac defibrillator in situ Z95.810 Plan Patient's ICD appears to be functioning appropriately. We will continue to monitor this with routine/scheduled follow-ups. 5. Essential hypertension I10 Plan Patient's blood pressure is well-controlled. We will continue to monitor. We will not make any medication regimen changes. Orders Orders: Nuclear Stress Test - Chemical Today 6. Pure hypercholesterolemia E78.00 Plan He will continue current statin medication. Orders Orders: Nuclear Stress Test - Chemical Today Plan Detail Other Orders Orders: 12 Lead EKG performed by BMS Today R07.89 Other Medications New: [Handicap Placard] 1 Handicap Placard; Good from 05/02/2020-05/02/2025; Good from 05/02/2020-05/02/2025 1 unit 0RF I50.9 Changed: From: furosemide 40 mg PO DAILY 30 days 30 tabs 1RF To: furosemide 20 mg PO BID Additional Comments Thank you for allowing us to participate in the patients plan of care, if you have any questions please do not hesitate to call. This note was generated using a voice recognition system and there may be incorrect words, spelling or punctuation that were not noted when reviewing the office note prior to saving. Follow Up 10 Months (PFM) Coding Level of Care Code Off vis,est,level 3 Diagnoses Atherosclerosis of [place] coronary artery of [place] heart without angina pectoris I25.10 ??[place] vs. transplanted heart: [place] heart Presence of stent in coronary artery Z95.5 Cardiomyopathy in other diseases classified elsewhere I43 Automatic implantable cardiac defibrillator in situ Z95.810 Essential hypertension I10 Pure hypercholesterolemia E78.00 Coding Level of Care Code Off vis,est,level 3 Diagnoses Atherosclerosis of [place] coronary artery of [place] heart without angina pectoris I25.10 ??[place] vs. transplanted heart: [place] heart Presence of stent in coronary artery Z95.5 Cardiomyopathy in other diseases classified elsewhere I43 Automatic implantable cardiac defibrillator in situ Z95.810 Essential hypertension I10 Pure hypercholesterolemia E78.00 Supplemental Info Supplemental Information Heart catheterization from 11/10/2019: CONCLUSIONS Elevated Left Ventricular End Diastolic Pressure [place] Multivessel CAD RECOMMENDATIONS Risk factor modification Medical therapy Referred for immediate PCI CORONARY ANGIOGRAPHY DOMINANCE: Right Dominant LEFT HEART ASSESSMENT Left Ventricular Ejection Fraction: Not assessed Elevated Left Ventricular End Diastolic Pressure LVEDP: 17 mmHg LEFT MAIN: Mild luminal irregularities LEFT ANTERIOR DESCENDING ARTERY: PROX LAD: Mild calcification, Mild luminal irregularities, eccentric: 25 % Stenosis CIRCUMFLEX ARTERY: PROX CIRC: hazy: 50 % Stenosis, Previously placed stent is patent MID CIRC: 75 % Stenosis RIGHT CORONARY ARTERY: PROX RCA: diffuse: ectatic: aneurysmal: 25 % Stenosis MID RCA: Previously placed stent is patent DISTAL RCA: Previously placed stent is patent RT PDA: Proximal - 25 % Stenosis, Mid - 25 % Stenosis RIGHT AV SEGMENT: Previously placed stent is patent Echocardiogram from 04/15/2020: Interpretation Summary Severely dilated left ventricle. Severe segmental systolic dysfunction (see wall motion). The estimated ejection fraction is 20 %. Septal motion consistent with IVCD. Apical false tendon noted. The left atrium is mildly enlarged. Mild (1+) mitral valve insufficiency. Trivial tricuspid valve insufficiency. Mildly dilated aortic root. Unable to assess diastolic dysfunction. ICD or pacer leads identified within the right atrium ICD or pacer leads identified within the right ventricle. Stress Test Report Date: 04-21-19 Procedure: Pharmacologic stress nuclear imaging study Indications: Fatigue; CAD; PCI; ischemic cardiomyopathy; ICD; abnormal ECG-left bundle branch block Consent: Per the patient Procedure: The patient underwent pharmacologic (Regadenoson) evaluation with a peak heart rate of 82 beats per minute (53 %predicted maximal heart rate) and a peak blood pressure of 130/80 mmHg. The baseline ECG demonstrated sinus rhythm; incomplete left bundle branch block pattern. The peak pharmacologic ECG demonstrated sinus rhythm with left bundle branch block pattern. There was an occasional PVC during recovery and an isolated ventricular triplet during recovery. [There was no complaint of chest discomfort during pharmacologic infusion or recovery]. The examination was discontinued secondary to completion of protocol. Impression: 1. Pharmacologic (Regadenoson) evaluation 2. Peak pharmacologic ECG with continued left IVCD pattern. 3. There was an occasional PVC during recovery and an isolated ventricular triplet during recovery. 4. Nuclear images pending Myocardial perfusion imaging study: Technique: The patient was injected with 14.0 millicuries of technetium 99m Cardiolite and subsequently rest SPECT Cardiolite nuclear imaging was obtained in the horizontal long, vertical long, and short axis views. The patient underwent pharmacologic (Regadenoson) evaluation with a peak heart rate of 82 beats per minute (53 % percent predicted maximal heart rate) and a peak blood pressure of 130/80 mmHg. The patient was injected with 44.3 millicuries of technetium 99m Cardiolite and subsequently stress SPECT Cardiolite nuclear imaging was obtained in the horizontal long, vertical long, and short axis views. A gated Cardiolite study at peak stress was obtained. Interpretation: Rest and stress SPECT Cardiolite nuclear imaging status post realignment, normalization, and attenuation correction demonstrate rest and stress SPECT Cardiolite nuclear imaging demonstrate at rest areas of diminished tracer uptake in portions of the distal anteroseptal/septal apical areas. Status post stress there is notation of improvement in these areas, however, there is notation of an area of diminished tracer uptake in portions of the mid towards distal anterior/anteroseptal segments as well as the associated anterior/septal apical segments. There are similar type findings on the resting and stress polar map images. There is diminished end systolic thickening and brightening. The gated Cardiolite study demonstrates diminished myocardial thickening and inward wall motion. The reported LVEF is 32 %. Impression: 1. Rest and stress SPECT currently nuclear imaging demonstrate myocardial perfusion changes potentially compatible with a combination of shifting soft tissue attenuation/artifact be more prominent at rest as opposed to stress but also concerning for an area of stress-induced myocardial ischemia involving portions of the mid to distal anterior/anteroseptal and associated apical segments. 2. The gated Cardiolite study reports an LVEF of 32 %. Labs LDL Cholesterol 103 mg/dL (0-130) 07/28/19 HDL Cholesterol 29 mg/dL (40-) L 07/28/19 Triglycerides 203 mg/dL (-199) H 07/28/19 VLDL Cholesterol 41 mg/dL (5-40) H 07/28/19 Diagnostics Electrocardiogram 05/02/20 Echocardiogram 04/15/20 Stress Test 04/21/19 Pacemaker Check 02/08/20 Cardiac Catheterization 11/10/19 Chest X-Ray 04/15/20 I have examined the patient the following changes are noted: The patient has undergone additional evaluation with an exercise tolerance test/nuclear imaging study as noted. It was considered abnormal. A recommendation was made for the patient to consider further evaluation with diagnostic cardiac catheterization. The procedure and risks have been discussed with the patient. He was agreeable to this approach. The surgeon/proceduralist and patient have discussed in detail the risk of exposure to and/or potential harm posed by the COVID-19 virus with having a surgery/procedure at this time versus the risk of delaying the surgery/procedure. It is not possible to know either the risk of delaying the surgery or procedure or chance of getting an infection with perfect accuracy, but a joint decision was made between the patient and the surgeon/proceduralist to proceed at this time with the scheduled surgery/procedure as indicated on the consent form.
--- NOTE | 2020-05-24 11:33 | CL.D_ITS ---
Patient Name: LAUREL DARLING Study Date: 05/24/2020 Performing: Pratik Yoder MD Ht: 72.04 inches 183 cm : 1950 Wt: 198.42 lbs 90 kg Age: 69 Gender: male BSA: 2.12 PROCEDURE(S) PERFORMED [id number] CLINICAL PROFILE AND INDICATIONS Indications: Suspected CAD Heart Failure: NYHA Class: 3, Newly Diagnosed: No, Heart Failure Type: Systolic Stress/Imaging Date: 05/13/2020Stress Test with SPECT MPI: Positive Angina Classification Anginal Classification w/in 2 Weeks: CCS III CAD Presentations: Other: angina pectoris at rest / exerion and dyspnea on exertion CONCLUSIONS [place] Multivessel CAD RECOMMENDATIONS Risk factor modification Medical therapy DESCRIPTION OF PROCEDURE The patient arrived to the procedure lab. The risks and benefits of the procedure as well as a full d escription of our services here and current unavailability of surgical backup were fully explained to the patient and/or their significant other prior to the catheterization. The Timeout was completed, verifying the correct patient and procedure. The patient's procedural site was prepped and draped in the usual fashion. Local anesthetic was given subcutaneously to right radial region with Lidocaine 2% . Using a modified Seldinger technique, arterial access was obtained via the right radial artery, a 6 Fr sheath was inserted. Left Coronary Artery selective angiography was performed in multiple views u sing a 5 Fr. 4.0 Wister catheter. Right Coronary Artery selective angiography was then performed in mu ltiple views using a 5 Fr. 4.0 Wister catheter.The arterial sheath was pulled and a TR Band was applie d for hemostasis w/ 11 ml air CORONARY ANGIOGRAPHY DOMINANCE: Right Dominant LEFT HEART ASSESSMENT Left Ventricular Ejection Fraction: Not assessed LEFT MAIN: Mild luminal irregularities LEFT ANTERIOR DESCENDING ARTERY: PROX LAD: Mild calcification, Mild luminal irregularities, eccentric: 25 % Stenosis DISTAL LAD: diffuse: 10 - 25 % Stenosis CIRCUMFLEX ARTERY: PROX CIRC: Previously placed stent is patent MID CIRC: Previously placed stent is patent OM 1: Proximal - Previously placed stent is patent RAMUS: Mild luminal irregularities RIGHT CORONARY ARTERY: PROX RCA: diffuse: ectatic: aneurysmal: 25 % Stenosis MID RCA: Previously placed stent is patent DISTAL RCA: Previously placed stent is patent RT PDA: Ostial - 25 - 50 % Stenosis, Mid - 25 - 50 % Stenosis RIGHT AV SEGMENT: Previously placed stent is patent COMPLICATIONS No Complications PROCEDURE MEDICATIONS Versed 1 mg IV Fentanyl 50 mcg IV Heparin diluted in 23cc Heparinized saline. Patient given 10cc IA of this solution. 05/24/2020 10:33 :03 IV Fluids: .9 NaCl IV started @ 50 ml/hr 05/24/2020 08:11:06 SUMMARY OF HEMODYNAMIC DATA Time AIR REST ECG 08:09:32 ECG 08:10:11 AO 115/62 (83) SA 10:43:29 Signed By Pratik Yoder MD On 05/24/2020 11:32:26 AM Pratik Yoder MD
== END 2020-05-24 13:35 | disposition home or self-care (01) ==
LOC: CLSP 07:52
PROVIDERS: PCP Family Medicine Geriatric Medicine; Referring Provider Internal Medicine Cardiovascular Disease; Visit Provider Internal Medicine Cardiovascular Disease
DX: I25.10 Atherosclerotic heart disease of native coronary artery without angina pectoris (principal); I43 Cardiomyopathy in diseases classified elsewhere; I44.7 Left bundle-branch block, unspecified; E78.00 Pure hypercholesterolemia, unspecified; I25.5 Ischemic cardiomyopathy; R06.09 Other forms of dyspnea; F17.200 Nicotine dependence, unspecified, uncomplicated; I11.0 Hypertensive heart disease with heart failure; I50.9 Heart failure, unspecified; Z95.810 Presence of automatic (implantable) cardiac defibrillator; Z95.5 Presence of coronary angioplasty implant and graft; E78.5 Hyperlipidemia, unspecified; Z79.82 Long term (current) use of aspirin; Z79.899 Other long term (current) drug therapy; Z88.0 Allergy status to penicillin; Z88.2 Allergy status to sulfonamides; Z88.8 Allergy status to other drugs, medicaments and biological substances
CPT/HCPCS: 93454; 99152; 99153; J7040; Q9967; C1769; C1894

== ENCOUNTER → 2020-07-15 13:38 | Outpatient (CLI) | payer MEDICARE, OTHER, SELFPAY ==
[2020-02-18 06:00] VITALS: BMI 28.0
[2020-05-23 07:03] VITALS: BMI 26.9
[2020-07-15 15:28] LABS: BUN 27 mg/dL (7-18); BUN/Creat Ratio 15.7 RATIO (10-20); Calcium,Total 8.7 mg/dL (8.5-10.1); Chloride 107 mmol/L (98-107); Creatinine, Serum 1.72 mg/dL (0.70-1.30); EST Glomerular Filtration Rate 42 mL/min (>60); Est Glom Filt Rate - Afr Amer 51 mL/min (>60); Glucose 89 mg/dL (74-106); Phosphorus 3.2 mg/dL (2.5-4.9); Potassium 4.2 mmol/L (3.5-5.1); Sodium Level 141 mmol/L (136-145)
== END ==
PROVIDERS: PCP Family Medicine Geriatric Medicine; Referring Provider Internal Medicine Nephrology; Visit Provider Internal Medicine Nephrology
DX: N17.9 Acute kidney failure, unspecified (principal)
CPT/HCPCS: 36415; 80069

== ENCOUNTER → 2020-07-18 10:30 | Outpatient (CLI) | payer MEDICARE, OTHER, SELFPAY ==
[2020-02-18 06:00] VITALS: BMI 28.0
[2020-05-23 07:03] VITALS: BMI 26.9
[2020-07-18 12:19] LABS: Absolute Lymphocyte Count 1.24 X10^3/uL (0.83-4.51); Absolute Neutrophil Count 5.2 X10^3/uL (2.0-7.7); Basophil# 0.04 X10^3/uL; Basophil% 0.5 % (0-1); Eosinophil# 0.24 X10^3/uL; Eosinophils% 3.2 % (0-5); Hematocrit 41.7 % (40-54); Hemoglobin 13.2 g/dL (13.0-16.5); Lymphocyte # 1.24 X10^3/ul (4.0); Lymphocyte % 16.3 % (19-41); Mean Corp Hgb Conc 31.7 g/dL (32-36); Mean Corpuscular Hgb 28.9 pg (27.0-32.0); Mean Corpuscular Volume 91.2 fL (80-94); Mean Platelet Vol. 11.3 fl (6.2-12.0); Monocyte# 0.84 X10^3/uL; Monocyte% 11.1 % (0-10); NRBC Flagged by Analyzer 0 % (0-5); Neutrophil # 5.22 X10^3/uL (2.7-7.7); Neutrophil % 68.6 % (47-70); Platelet Count 142 K/mm3 (150-450); RBC Distribution Width CV 13.7 % (11.6-14.6); RBC Distribution Width SD 46.6 fl (35.1-43.9); Red Blood Count 4.57 M/mm3 (4.6-6.2); White Blood Count 7.6 K/mm3 (4.4-11.0)
[2020-07-18 12:33] LABS: Vitamin D,25 Hydroxy 30.9 ng/mL
[2020-07-18 12:43] LABS: ALB/GLOB Ratio 1.3 RATIO (0.9-2.4); AST(SGOT) 11 U/L (15-37); Alanine Aminotransfer ALT/SGPT 19 U/L (16-61); Albumin, Serum 3.8 g/dL (3.2-5.0); Alkaline Phosphatase 72 U/L (45-117); Anion Gap 6 (5-15); BUN 25 mg/dL (7-18); BUN/Creat Ratio 15.3 RATIO (10-20); Calcium,Total 8.6 mg/dL (8.5-10.1); Chloride 107 mmol/L (98-107); Creatinine, Serum 1.63 mg/dL (0.70-1.30); EST Glomerular Filtration Rate 45 mL/min (>60); Est Glom Filt Rate - Afr Amer 54 mL/min (>60); Glucose 149 mg/dL (74-106); Potassium 4.3 mmol/L (3.5-5.1); Protein, Total 6.8 g/dL (6.4-8.2); Sodium Level 141 mmol/L (136-145); Thyroid Stim Hormone (TSH) 1.22 uIU/mL (0.358-3.74)
== END ==
PROVIDERS: PCP Family Medicine Geriatric Medicine; Visit Provider Family Medicine Geriatric Medicine
DX: E11.65 Type 2 diabetes mellitus with hyperglycemia (principal); E55.9 Vitamin D deficiency, unspecified; I10 Essential (primary) hypertension
CPT/HCPCS: 36415; 80053; 82306; 84443; 85025

== ENCOUNTER 2020-08-25 13:41 | Observation (INO) | payer MEDICARE, OTHER, SELFPAY ==
[2020-02-18 06:00] VITALS: BMI 28.0
[2020-05-23 07:03] VITALS: BMI 26.9
[2020-08-25] VITALS (10 sets, daily range): BP systolic 109–127; BP diastolic 62–86; PULSE 49–67; RESP 12–18; TEMP 36.4–36.9; O2SAT 94–98; BMI 26.0; BMI 26.7
--- NOTE | 2020-08-25 13:45 | EKG12_ITS ---
Test Reason : ABN EKG Blood Pressure : / mmHG Vent. Rate : 051 BPM Atrial Rate : 051 BPM P-R Int : 186 ms QRS Dur : 180 ms QT Int : 524 ms P-R-T Axes : -01 -06 125 degrees QTc Int : 482 ms Sinus bradycardia Left bundle branch block Abnormal ECG Confirmed by ZOILA RATLIFF, JERARDO ([id number]), greeting card editor SANDRA MADDOX ([id number]) on 08/29/2020 10:27:19 AM Referred By: JENNIFER/LOLITA Confirmed By:JERARDO CUMMINGS MD
--- NOTE | 2020-08-25 13:47 | RAD_ITS ---
STUDY: X-RAY CHEST REASON FOR EXAM: Male, 70 years old. Chest pain TECHNIQUE: Single AP portable view of the chest. COMPARISON: Comparison is made with prior study dated 04/15/2020. FINDINGS: Thoracic congestion and mild degree of CHF. There is no demonstrated pleural abnormality. There is borderline cardiomegaly. Right-sided unipolar pacemaker. Normal mediastinum and azra. Normal visualized pulmonary arteries. Normal visualized aortic arch and descending thoracic aorta. There are diffuse degenerative changes of the visualized thoracic spine. Normal visualized ribs, clavicles, and shoulders. There is no demonstrated abnormality of the visualized soft tissue structures of the upper abdomen. RAD/Chest 1 View (Portable) IMPRESSION: Mild cardiomegaly with a mild degree of CHF. Electronically Signed: Keenan Gardner MD at 13:59 EDT , Service support ,
--- NOTE | 2020-08-25 14:27 | ED.VISSUMM ---
- ER Visit Summary Date of Service: 08/25/20 Chief Complaint: Epigastric pressure History of Present Illness: The patient is a 70 M with CAD, OR with all 7 cardiac stents, pacemaker defibrillator, diet-controlled diabetes, high cholesterol, renal sufficiency and most recent cardiac cath was May. Patient states he has had abdominal epigastric pressure. He is also had exertional shortness of breath but no exertional chest pain. Also some fatigue. He denies any nausea, vomiting, diarrhea. Denies chest pain. Denies any history of DVT or PE. He is on Plavix for his stents and has been taking it regularly. Denies any hemoptysis. Denies any melena. Physical Examination: Older male no acute distress. Vital signs stable afebrile. Accompanied by his grandson. HEENT exam unremarked. Neck nontender no lymphadenopathy. Lungs clear to auscultation bilaterally. Heart regular rhythm rate about 50 no murmur. Sinus bradycardia on the monitor. Abdomen soft nontender normal bowel sounds no peritoneal signs. Patient moving all 4 extremities. Calves are nontender without edema or cords. Neurologically is awake alert with no focal motor deficits. Lower extremities no edema. Test Results: CBC normal white count 8 hemoglobin 13. Chemistries unremarkable known renal insufficiency creatinine 1.64 which is baseline normal gap. Lipase normal. Normal PT/INR. Troponin normal. Initial EKG sinus bradycardia rate of 51 with a left bundle branch block which is known and seen on prior EKG from April. Chest x-ray chronic changes portable 1 view with a right-sided pacemaker interpreted both by myself and the radiologist. Repeat exam the patient is doing well at 1601. He and I discussed admission of the hospitalist on page. Emergency Department Course and Treatment: Atypical epigastric pressure. Patient undergo cardiac work-up. Clinically his abdomen is benign. Completely nontender. Treatment Plan: admission for further cardiac evaluation. Disposition: Admiission Impression: Atypical chest pain History of CAD with 7 stents Hx of Diabetes History of hypertension History of renal insufficiency This note was generated with [employer] dictation software. It may contain incorrect words, spelling, and punctuation that were not noted in review of the chart prior to signing ED Disposition - Plan for ED Patient: Referrals: Eleuterio Abreu Chi, MD [Primary Care Provider] -
[2020-08-25 14:46] LABS: Absolute Lymphocyte Count 1.54 X10^3/uL (0.83-4.51); Absolute Neutrophil Count 5.9 X10^3/uL (2.0-7.7); Basophil# 0.04 X10^3/uL; Basophil% 0.5 % (0-1); Eosinophil# 0.18 X10^3/uL; Eosinophils% 2.1 % (0-5); Hematocrit 39.4 % (40-54); Lymphocyte # 1.54 X10^3/ul (4.0); Lymphocyte % 17.9 % (19-41); Mean Platelet Vol. 10.9 fl (6.2-12.0); Monocyte% 10.5 % (0-10); NRBC Flagged by Analyzer 0 % (0-5); Neutrophil % 68.7 % (47-70); Platelet Count 161 K/mm3 (150-450); RBC Distribution Width CV 13.7 % (11.6-14.6); RBC Distribution Width SD 45.2 fl (35.1-43.9); Red Blood Count 4.33 M/mm3 (4.6-6.2); White Blood Count 8.6 K/mm3 (4.4-11.0)
[2020-08-25 14:56] LABS: International Normalized Ratio 1.1; Prothrombin Time (Protime)PT. 13.8 SECONDS (11.7-14.9)
[2020-08-25 15:05] LABS: Anion Gap 5 (5-15); BUN 30 mg/dL (7-18); BUN/Creat Ratio 18.3 RATIO (10-20); Chloride 106 mmol/L (98-107); Creatinine, Serum 1.64 mg/dL (0.70-1.30); EST Glomerular Filtration Rate 45 mL/min (>60); Est Glom Filt Rate - Afr Amer 54 mL/min (>60); Estimated Creatinine Clearance 46.66 ml/min; Glucose 107 mg/dL (74-106); Lipase 125 U/L (73-393); Potassium 4.5 mmol/L (3.5-5.1); Sodium Level 141 mmol/L (136-145)
--- NOTE | 2020-08-25 15:09 | ED.RN ---
PT GAVE VERBAL CONSENT TO TALK TO DAUGHTER ABOUT MEDICAL CONDITION
--- NOTE | 2020-08-25 16:19 | HP.PCM_ITS ---
Problem List (1) CKD (chronic kidney disease) stage 3, GFR 30-59 ml/min Status: Chronic (2) Type 2 diabetes mellitus Status: Chronic Qualifiers: Diabetes mellitus jail insulin use: without jail use Diabetes mellitus complication status: with other specified complication Qualified Code(s): E11.69 - Type 2 diabetes mellitus with other specified complication (3) Presence of stent in coronary artery Status: Chronic Comment: PTCA/YUDY to LCX and PTCA/YUDY to mid and distal RCA 06/22/11; Successful PTCA/YUDY to proximal/mid PL branch of RCA with a 3.0 x 38 Promus Synergy, post dilated proximally with a 3.5 x 8 NC Balloon; 75%-->0%, no dissection 05/22/19. Successful PTCA/YUDY mid LCX with a 2.25 x 28 Promus Synergy, followed immediately downstream with a 2.25 x 8 Promus Synergy; 75%-->0%, no dissection. Successful PTCA/YUDY of proximal LCX with a 2.5 x 8 Promus Synergy, post dilated with a 3.0 x 8 NC balloon; 75%-->0%. no dissection. 11/10/2019 (4) Essential (primary) hypertension Status: Chronic (5) Atherosclerotic heart disease of [place] coronary artery without angina pectoris Status: Chronic Qualifiers: [place] vs. transplanted heart: [place] heart Qualified Code(s): I25.10 - Atherosclerotic heart disease of [place] coronary artery without angina pectoris History of Present Illness Date of Admission: 08/25/20 Chief Complaint: Chest pain - 3-4 days The patient is a 70 year old M with past medical history of CAD status post multiple stents, ischemic cardiomyopathy with EF of 20%, status post ICD, hypertension, hyperlipidemia who comes in with complaints of chest discomfort. Patient describes a chest discomfort as some indigestion that is present in his lower substernal region/epigastric region. It felt like it had been. It was associated with some shortness of breath. It did not have any aggravating or relieving factors. It was not worse with exertion. Patient went to see his primary care doctor today. Had complained of chest discomfort as well as epigastric pressure with some exertional shortness of breath ongoing for about 3 days. He denies missing any of his Plavix. He was given sublingual nitro does seem to have relieved his chest pain. His primary care doctor did an EKG and that was abnormal and referred him to the emergency department. In the ED, his vitals were stable, his his CBCD is unremarkable, his CMP shows chronic kidney disease with chronic creatinine at 1.64, BUN was 30. Admitting chest x-ray showed mild cardiomegaly, with mild degree of CHF. EKG shows his chronic left bundle branch block. Past Medical History Past Medical History (Chronic Problems): Chronic Problems (Last Updated 05/24/20 @ 13:14 by Leyla Rodrigez) Acute CHF (congestive heart failure) (Chronic) Hypoxia (Chronic) CKD (chronic kidney disease) stage 3, GFR 30-59 ml/min (Chronic) Type 2 diabetes mellitus (Chronic) Presence of stent in coronary artery (Chronic 11/10/19) PTCA/YUDY to LCX and PTCA/YUDY to mid and distal RCA 06/22/11; Successful PTCA/YUDY to proximal/mid PL branch of RCA with a 3.0 x 38 Promus Synergy, pos t dilated proximally with a 3.5 x 8 NC Balloon; 75%-->0%, no dissection 05/22/19. Successful PTCA/YUDY mid LCX with a 2.25 x 28 Promus Synergy, followed immediately downstream with a 2.25 x 8 Promus Synergy; 75%-->0%, no dissection. Successful PTCA/YUDY of proximal LCX with a 2.5 x 8 Promus Synergy, post dilated with a 3.0 x 8 NC balloon; 75%-->0%. no dissection. 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) Automatic implantable cardiac defibrillator in situ (Chronic) Cardiomyopathy in other diseases classified elsewhere (Chronic) Blurred vision (Chronic) Ventricular tachycardia (Chronic) Atherosclerotic heart disease of [place] coronary artery without angina pectoris (Chronic) Medical History: Medical History (Last Updated 05/24/20 @ 13:14 by Leyla Rodrigez) CKD (chronic kidney disease) stage 3, GFR 30-59 ml/min (Chronic) N18.3 Type 2 diabetes mellitus (Chronic) E11.9 Presence of stent in coronary artery (Chronic) Onset Date: 11/10/19 Z95.5 PTCA/YUDY to LCX and PTCA/YUDY to mid and distal RCA 06/22/11; Successful PTCA/YUDY to proximal/mid PL branch of RCA with a 3.0 x 38 Promus Synergy, post dilated proximally with a 3.5 x 8 NC Balloon; 75%-->0%, no dissection 05/22/19. Successful PTCA/YUDY mid LCX with a 2.25 x 28 Promus Synergy, followed immediately downstream with a 2.25 x 8 Promus Synergy; 75%-->0%, no dissection. Successful PTCA/YUDY of proximal LCX with a 2.5 x 8 Promus Synergy, post dilated with a 3.0 x 8 NC balloon; 75%-->0%. no dissection. 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) Z79.899 Automatic implantable cardiac defibrillator in situ (Chronic) Z95.810 Cardiomyopathy in other diseases classified elsewhere (Chronic) I43 Abnormal echocardiogram (Inactive) R93.1 Abnormal myocardial perfusion study (Inactive) R94.39 Blurred vision (Chronic) H53.8 Chest tightness (Inactive) R07.89 Ventricular tachycardia (Chronic) I47.2 Atherosclerotic heart disease of [place] coronary artery without angina pectoris (Chronic) I25.10 Acute [place], subendocardial, subsequent episode of care I21.4 Allergies FRANK Inhibitors Allergy (Verified 08/25/20 13:45) cough atorvastatin [From Lipitor] Allergy (Verified 08/25/20 13:45) myalgia gabapentin [From Neurontin] Allergy (Verified 08/25/20 13:45) numbness Penicillins Allergy (Verified 08/25/20 13:45) Hives Sulfa (Sulfonamide Antibiotics) Allergy (Verified 08/25/20 13:45) Hives bupropion Adverse Reaction (Verified 08/25/20 13:45) headaches and borderline psychotic Home Medications: Ambulatory Orders Medication Instructions Recorded rosuvastatin 10 mg tablet 10 mg PO QHS 09/22/19 icosapent ethyl 1 gram capsule 1 g PO DAILY 03/28/20 Carvedilol 12.5 mg PO BID 04/15/20 Clopidogrel Bisulfate [Clopidogrel] 75 mg PO DAILY 04/15/20 Melatonin 5 mg PO QHS PRN 04/15/20 ergocalciferol (vitamin D2) 1,250 1,250 mcg PO Q14D 05/02/20 mcg (50,000 unit) capsule furosemide 40 mg tablet 20 mg PO BID tab 05/02/20 nitroglycerin 0.4 mg sublingual 0.4 mg SUBLINGUAL Q5M PRN #25 tab 07/22/20 tablet Aspirin E.C. [Ecotrin] 81 mg PO DAILY@0800 08/25/20 Icosapent Ethyl [Vascepa] 2 gm PO DAILY 08/25/20 Isosorbide Mononitrate [Isosorbide 60 mg PO DAILY 08/25/20 Mononitrate ER] Surgical History: Surgical History (Last Updated 05/24/20 @ 13:15 by Leyla Rodrigez) History of herniorrhaphy Z98.890, Z87.19 Presence of coronary angioplasty implant and graft Onset Date: ~05/22/19 Z95.5 PTCA/YUDY to LCX and PTCA/YUDY to mid and distal RCA 06/22/11; Successful PTCA/YUDY to proximal/mid PL branch of RCA with a 3.0 x 38 Promus Synergy, post dilated proximally with a 3.5 x 8 NC Balloon; 75%-->0%, no dissection. 05/22/19 History of left heart catheterization (LHC) Onset Date: ~05/24/20 Z98.890 LEFT MAIN: Mild luminal irregularities; LEFT ANTERIOR DESCENDING ARTERY: PROX LAD: Mild calcification, Mild luminal irregularities, eccentric: 25 % Stenosis, DISTAL LAD: diffuse: 10 - 25 % Stenosis,;CIRCUMFLEX ARTERY: PROX CIRC: Previously placed stent is patent, MID CIRC: Previously placed stent is patent, OM 1: Proximal - Previously placed stent is patent per cath 05/24/20 RAMUS: Mild luminal irregularities RIGHT CORONARY ARTERY: PROX RCA: diffuse: ectatic: aneurysmal: 25 % Stenosis MID RCA: Previously placed stent is patent DISTAL RCA: Previously placed stent is patent RT PDA: Ostial - 25 - 50 % Stenosis, Mid - 25 - 50 % Stenosis RIGHT AV SEGMENT: Previously placed stent is patent Surgical History: herniorrhaphy, - - ICD Placement Lives: Spouse/ Significant Other Smoking Status: Current every day smoker Tobacco Use: Non-smoker Alcohol: None Drugs: None - *Family History Maternal Family History: Family History (Last Reviewed 03/28/20 @ 11:52 by Leyla Rodrigez) Father Myocardial infarction, Onset Age: 70 CAD (coronary artery disease) Hx of CABG Mother CAD (coronary artery disease) Diabetes Pacemaker Brother Myocardial infarction Sister Myocardial infarction, Onset Age: 62 Rheumatic fever Son Hypertension Diabetes Daughter Diabetes History Items: Diabetes, Hypertension Paternal Family History: Family History (Last Reviewed 03/28/20 @ 11:52 by Leyla Rodrigez) Father Myocardial infarction, Onset Age: 70 CAD (coronary artery disease) Hx of CABG Mother CAD (coronary artery disease) Diabetes Pacemaker Brother Myocardial infarction Sister Myocardial infarction, Onset Age: 62 Rheumatic fever Son Hypertension Diabetes Daughter Diabetes History Items: Heart Disease Review of Systems Constitutional: Denies: Anorexia, Chills, Fever, Night Sweats, Malaise, Weakness, Weight Change, Fatigue Eyes: Denies: Blurred vision, Cataracts, Conjunctivae Inflammation, Pain, Redness, Vision Change HEENT: Denies: Difficulty Hearing, Difficulty Swallowing, Head Aches, Hearing Changes, Sinus Congestion, Sinus Drainage Cardiovascular: Denies: Chest Pain, Claudication, Orthopnea, Palpitations, Paroxysmal Noc. Dyspnea Respiratory: Denies: Cough, Hemoptysis, Shortness of breath at rest, Shortness of breath upon exertion, Sputum production Gastrointestinal: Denies: Abdominal Pain, Nausea, Vomiting Genitourinary: Denies: Dysuria, Frequency, Incontinence Musculoskeletal: Denies: Joint Pain, Joint stiffness, Joint swelling, Joint Tenderness Skin: Denies: Rash, Wounds Neurological: Denies: Difficulty swallowing, Focal weakness, Numbness, Tingling Psychiatric: Denies: Anxiety, Depression, Homicidal Ideations, Suicidal Ideations Hematologic/ Lymphatic: Denies: Easy Bruising, Easy Bleeding VTE Information - Inpt Only VTE Present on Admission: No VTE Pharm Prophylaxis ordered?: Yes - Physical Exam Vitals/I&O's: Vital Signs Temp Pulse Resp BP Pulse Ox 98.5 F 49 L 16 127/75 H 96 08/25/20 13:41 08/25/20 15:08 08/25/20 15:08 08/25/20 15:08 08/25/20 15:08 Oxygen Delivery Method Room Air Weight: 87.09 kg Body Mass Index (BMI) 26.0 General: Alert, Oriented x3, Cooperative, No apparent distress HEENT: Atraumatic, PERRLA, EOMI, Normocephalic Oral: Moist Mucosa Neck: Supple Lungs: Diminished Cardiovascular: Regular rate, Regular Rhythm, Normal S1, Normal S2, No murmurs Abdomen: Bowel Sounds Present, Soft, Non Tender, Non-Distended, No Hepato- splenomegaly Extremities: No edema Skin: No rashes Musculoskeletal: No Tenderness to Palpation of Joints or Extremities Lymphatic: No Cervical, Supraclavicular, or Inguinal Adenopathy Neurological: Cranial nerves II-XII grossly intact, Neuro grossly intact Psych/Mental Status: Normal Affect, Appropriate Laboratory Results 08/25/20 14:40: WBC 8.6, RBC 4.33 L, Hgb 13.0, Hct 39.4 L, MCV 91.0, MCH 30.0, MCHC 33.0, RDW Std Deviation 45.2 H, RDW Coeff of Jane 13.7, Plt Count 161, MPV 10.9, Immature Gran % (Auto) 0.300, Neut % (Auto) 68.7, Lymph % (Auto) 17.9 L, [place] % (Auto) 10.5 H, Eos % (Auto) 2.1, Baso % (Auto) 0.5, Absolute Neuts (auto) 5.9, Absolute Lymphs (auto) 1.54, Nucleated RBC % 0 08/25/20 14:40: PT 13.8, INR 1.1 08/25/20 14:40: Sodium 141, Potassium 4.5, Chloride 106, Carbon Dioxide 30.0, Anion Gap 5, BUN 30 H, Creatinine 1.64 H, Estim Creat Clear Calc 46.66, Est GFR (MDRD) Af Amer 54 L, Est GFR (MDRD) Non-Af 45 L, BUN/Creatinine Ratio 18.3, Glucose 107 H, Calcium 9.0, Troponin I < 0.015, Lipase 125 Assessment/Plan All Active Problems (Last Updated 05/24/20 @ 13:14 by Leyla Rodrigez) Troponin I above reference range (Acute) 1. Acute chest pain, atypical, in a patient with CAD status post multiple s tents Patient had cardiac catheterization in May 2020 that showed some mild disease. EKG shows old left bundle branch block, no acute ST-T changes. Troponins x1 is negative; will trend troponins Stress test in a.m., if abnormal, consider cardiology consult Continue on aspirin, isosorbide, Plavix, carvedilol 2. Probable acute on chronic systolic CHF, EF of 20% Patient's admitting chest x-ray suggestive of CHF BNpep is pending; continue on Lasix 20 mg IV twice daily 3. Hypertension/hyperlipidemia, stable, continue home medications 4. DVT PPx- Heparin SC OBSV E&M: [id number] Initial observation care L3
--- NOTE | 2020-08-25 17:28 | EKG12_ITS ---
Test Reason : AM EKG Blood Pressure : / mmHG Vent. Rate : 057 BPM Atrial Rate : 057 BPM P-R Int : 204 ms QRS Dur : 186 ms QT Int : 518 ms P-R-T Axes : 030 -28 122 degrees QTc Int : 504 ms Sinus bradycardia Left bundle branch block Abnormal ECG When compared with ECG of 25-AUG-2020 17:12, MANUAL COMPARISON REQUIRED, DATA IS UNCONFIRMED Confirmed by ZOILA RATLIFF, JERARDO ([id number]), editor newspaper SANDRA MADDOX ([id number]) on 08/29/2020 10:58:56 AM Referred By: JONATHAN Confirmed By:JERARDO CUMMINGS MD
[2020-08-25 17:39] LABS: AST(SGOT) 5 U/L (15-37); Alanine Aminotransfer ALT/SGPT 15 U/L (16-61); Alkaline Phosphatase 67 U/L (45-117); Bilirubin, Direct 0.18 mg/dL (0.00-0.30); Globulin 3.1 g/dL (2.2-4.2); Protein, Total 7.1 g/dL (6.4-8.2)
[2020-08-25] MEDS: Furosemide 20 MG Tablet PO (17:41)
[2020-08-25] MEDS: Carvedilol 12.5 MG Tablet PO (21:55)
[2020-08-25] MEDS: Heparin Injection (Vial) 5,000 UNIT/ML VIAL 5000 UNIT SC (21:56)
[2020-08-25] MEDS: Furosemide 20 MG/2 ML VIAL IV (22:02)
[2020-08-25 22:05] LABS: BNP,B-Type NATRIURETIC PEPTIDE 926.7 pg/mL (0-100)
[2020-08-26 03:00] VITALS: PULSE 58
[2020-08-26 04:58] LABS: Absolute Lymphocyte Count 2.13 X10^3/uL (0.83-4.51); Absolute Neutrophil Count 5.2 X10^3/uL (2.0-7.7); Basophil# 0.04 X10^3/uL; Basophil% 0.5 % (0-1); Eosinophil# 0.25 X10^3/uL; Eosinophils% 2.9 % (0-5); Hematocrit 37.1 % (40-54); Hemoglobin 12.3 g/dL (13.0-16.5); Lymphocyte # 2.13 X10^3/ul (4.0); Lymphocyte % 24.8 % (19-41); Mean Corp Hgb Conc 33.2 g/dL (32-36); Mean Corpuscular Hgb 29.6 pg (27.0-32.0); Mean Corpuscular Volume 89.4 fL (80-94); Mean Platelet Vol. 10.8 fl (6.2-12.0); Monocyte# 0.98 X10^3/uL; Monocyte% 11.4 % (0-10); NRBC Flagged by Analyzer 0 % (0-5); Neutrophil # 5.17 X10^3/uL (2.7-7.7); Neutrophil % 60.1 % (47-70); Platelet Count 150 K/mm3 (150-450); RBC Distribution Width CV 13.8 % (11.6-14.6); RBC Distribution Width SD 44.8 fl (35.1-43.9); Red Blood Count 4.15 M/mm3 (4.6-6.2); White Blood Count 8.6 K/mm3 (4.4-11.0)
[2020-08-26 05:00] VITALS: BP 106/63; PULSE 57; RESP 16; TEMP 36.7; O2SAT 95
[2020-08-26 05:22] LABS: ALB/GLOB Ratio 1.4 RATIO (0.9-2.4); AST(SGOT) 7 U/L (15-37); Alanine Aminotransfer ALT/SGPT 13 U/L (16-61); Albumin, Serum 3.7 g/dL (3.2-5.0); Alkaline Phosphatase 59 U/L (45-117); Anion Gap 8 (5-15); BUN 32 mg/dL (7-18); Calcium,Total 8.6 mg/dL (8.5-10.1); Chloride 104 mmol/L (98-107); EST Glomerular Filtration Rate 46 mL/min (>60); Est Glom Filt Rate - Afr Amer 55 mL/min (>60); Estimated Creatinine Clearance 47.83 ml/min; Globulin 2.7 g/dL (2.2-4.2); Glucose 99 mg/dL (74-106); Magnesium 2.3 mg/dL (1.6-2.6); Potassium 3.9 mmol/L (3.5-5.1); Protein, Total 6.4 g/dL (6.4-8.2); Sodium Level 140 mmol/L (136-145)
[2020-08-26] MEDS: Aspirin 81 MG TAB.CHEW PO (05:45)
[2020-08-26] MEDS: Clopidogrel Bisulfate 75 MG Tablet PO (05:45)
--- NOTE | 2020-08-26 05:55 | EKG12_ITS ---
Test Reason : CP ADMISSION Blood Pressure : / mmHG Vent. Rate : 059 BPM Atrial Rate : 059 BPM P-R Int : 194 ms QRS Dur : 186 ms QT Int : 516 ms P-R-T Axes : 027 -06 132 degrees QTc Int : 510 ms Sinus bradycardia Left bundle branch block Abnormal ECG When compared with ECG of 25-AUG-2020 13:46, MANUAL COMPARISON REQUIRED, DATA IS UNCONFIRMED Confirmed by ZOILA RATLIFF, JERARDO ([id number]), visual effects editor SANDRA MADDOX ([id number]) on 08/29/2020 10:59:45 AM Referred By: JONATHAN Confirmed By:JERARDO CUMMINGS MD
[2020-08-26 07:00] VITALS: PULSE 55
[2020-08-26] MEDS: Furosemide 20 MG/2 ML VIAL IV (11:44)
[2020-08-26] MEDS: Isosorbide Mononitrate 60 MG Tablet PO (11:44)
[2020-08-26 11:45] VITALS: RESP 16
[2020-08-26 11:50] VITALS: BP 121/65; PULSE 54; RESP 18; TEMP 36.3; O2SAT 99
--- NOTE | 2020-08-26 13:32 | STRESSREP_ITS ---
Stress Test Report Pharmacologic myocardial perfusion stress test. Indication: 70-year-old patient with CAD has cardiac catheterization in May 2020 patient had a history of PCI and stent to the left circumflex and to the RCA scar the catheterization 2020-05-24 revealed main with mild luminal irregularity, LAD proximal LAD mild calcification with mild luminal irregularity left circumflex proximal circumflex previously placed stent is patent also had mild disease in the ramus intermedius artery Right coronary artery had nonobstructive atherosclerosis with the prior are right AV segment stent is patent. Patient has severe cardiomyopathy with severe LV dysfunction and a history of AICD device implant. She has multiple medical comorbidities with history of diabetes, hypertension hyperlipidemia and cardiac history with a severe LV dysfunction ejection fraction around 20% and now presenting with symptoms of chest pain. Which he described as indigestion. Stress protocol: Resting EKG demonstrates. Normal sinus rhythm. With age indeterminant old inferior TN. 0.4 mg of regadenoson was infused per usual protocol followed by rapid intravenous saline flush injection continuous EKG monitoring was performed. The maximum heart rate attained was 80 bpm which was 52% of maximum predicted heart . Stress EKG showed[, no significant change from the resting EKG, with maximum heart rate of 107bpm. Arrhythmia: No arrhythmia demonstrated Symptoms: Patient had no symptoms of chest pain Blood pressure at rest: 122/84 blood pressure at the end of stress: 120/70 Myocardial perfusion protocol. 12mci of Technetium 99m Sestamibi was injected at rest. 0.4mg of Regadenoson was infused per usual protocol peak [id number] mci of Technetium 99m sestamibi was injected. Stress images were obtained stress and rest images were reconstructed and compared in the short axis vertical and horizontal long axis. Gated images were also obtained Perfusion SPECT analysis: Review of the images demonstrate normal uptake of sestamibi at rest, post stress images demonstrate similar uptake of sestamibi to the resting images, homogeneous tracer uptake With no evidence of reversible myocardial ischemia. Reduced tracer uptake in the inferior myocardium consistent with prior inferior TN. Gated SPECT analysis: The gated ejection fraction is 23%. Wall motion showed inferior akinesia, with anteroapical and lateral hypokinesia. Conclusion: Abnormal Lexiscan sestamibi study with fixed inferior defect consistent with prior TN, attenuation artifact/diaphragmatic attenuation was noted in the inferior region. Small area of septal reversible myocardial ischemia, anterior, lateral and apical portion of the myocardium revealed homogeneous tracer uptake. Severe LV systolic dysfunction with calculated ejection fraction of 23% and significant segmental wall motion abnormality with inferior akinesia, and samantha-apical lateral hypokinesia. Sylvia Morton MD,FACC,[facility] network systems engineer
--- NOTE | 2020-08-26 14:48 | PCM.DC ---
- Discharge Diagnoses Current Active Problems: Current Active and Chronic Problems (Last Updated 05/24/20 @ 13:14 by Leyla Rodrigez) CKD (chronic kidney disease) stage 3, GFR 30-59 ml/min (Chronic) Type 2 diabetes mellitus (Chronic) Presence of stent in coronary artery (Chronic 11/10/19) PTCA/YUDY to LCX and PTCA/YUDY to mid and distal RCA 06/22/11; Successful PTCA/YUDY to proximal/mid PL branch of RCA with a 3.0 x 38 Promus Synergy, post dilated proximally with a 3.5 x 8 NC Balloon; 75%-->0%, no dissection 05/22/19. Successful PTCA/YUDY mid LCX with a 2.25 x 28 Promus Synergy, followed immediately downstream with a 2.25 x 8 Promus Synergy; 75%-->0%, no dissection. Successful PTCA/YUDY of proximal LCX with a 2.5 x 8 Promus Synergy, post dilated with a 3.0 x 8 NC balloon; 75%-->0%. no dissection. 11/10/2019 Essential (primary) hypertension (Chronic) Atherosclerotic heart disease of [place] coronary artery without angina pectoris (Chronic) You will use the following diet at home:: Cardiac, Fluid restricted (specify 2000 mls, 1500 mls) - 1500 millilters/day Call your doctor if you observe: Shortness of breath, Chest pain Additional Instructions: daily weights. Notify physician if greater than 2 pounds in 1 day or 3 pounds in 1 week. Allergies/Adverse Reactions: Allergies FRANK Inhibitors Allergy (Verified 08/25/20 13:45) cough atorvastatin [From Lipitor] Allergy (Verified 08/25/20 13:45) myalgia gabapentin [From Neurontin] Allergy (Verified 08/25/20 13:45) numbness Penicillins Allergy (Verified 08/25/20 13:45) Hives Sulfa (Sulfonamide Antibiotics) Allergy (Verified 08/25/20 13:45) Hives bupropion Adverse Reaction (Verified 08/25/20 13:45) headaches and borderline psychotic Medications to take at Discharge rosuvastatin 10 mg tablet 10 mg PO QHS 09/22/19 icosapent ethyl 1 gram capsule 1 g PO DAILY 03/28/20 Carvedilol 12.5 mg PO BID 04/15/20 Clopidogrel Bisulfate [Clopidogrel] 75 mg PO DAILY 04/15/20 Melatonin 5 mg PO QHS PRN 04/15/20 ergocalciferol (vitamin D2) 1,250 mcg (50,000 unit) capsule 1,250 mcg PO Q14D 05/02/20 furosemide 40 mg tablet 20 mg PO BID tab 05/02/20 nitroglycerin 0.4 mg sublingual tablet 0.4 mg SUBLINGUAL Q5M PRN #25 tab 07/22/20 Aspirin E.C. [Ecotrin] 81 mg PO DAILY@0800 08/25/20 Icosapent Ethyl [Vascepa] 2 gm PO DAILY 08/25/20 Isosorbide Mononitrate [Isosorbide Mononitrate ER] 60 mg PO DAILY 08/25/20 Albuterol Inhaler [Ventolin Hfa] 1 - 2 puff INHALATION Q4H PRN PRN #1 inhaler 08/26/20 Ranolazine [Ranexa] 500 mg PO BID #60 tab.er.12h 08/26/20 The following prescriptions were given: Ranolazine [Ranexa] 500 mg PO BID #60 tab.er.12h Transmission Status: Pending to [id number] Albuterol Inhaler [Ventolin Hfa] 1 - 2 puff INHALATION Q4H PRN PRN #1 inhaler PRN Reason: Shortness Of Breath Transmission Status: Pending to [id number] Primary Care Physician: Eleuterio Abreu Chi, MD [Primary Care Provider] - Within 1 Week Test Results: Test results from this visit will be discussed in further detail at your follow-up appointment, if applicable. Please Follow Up With: Hernando Funez NP, [employer] C[facility] MANAGER-C When: 09/21/2020, already scheduled. Proposed Discharge Date: 08/26/20
--- NOTE | 2020-08-26 14:50 | DS.PCM_ITS ---
Discharge Date and Diagnosis Date of Admission: 08/25/20 Date of Discharge: 08/26/20 - Primary Discharge Diagnosis Acute Problems: chest pain - Secondary Discharge Diagnosis Chronic Problems: Chronic Problems (Last Updated 05/24/20 @ 13:14 by Leyla Rodrigez) Acute CHF (congestive heart failure) (Chronic) Hypoxia (Chronic) CKD (chronic kidney disease) stage 3, GFR 30-59 ml/min (Chronic) Type 2 diabetes mellitus (Chronic) Presence of stent in coronary artery (Chronic 11/10/19) PTCA/YUDY to LCX and PTCA/YUDY to mid and distal RCA 06/22/11; Successful PTCA/YUDY to proximal/mid PL branch of RCA with a 3.0 x 38 Promus Synergy, post dilated proximally with a 3.5 x 8 NC Balloon; 75%-->0%, no dissection 05/22/19. Successful PTCA/YUDY mid LCX with a 2.25 x 28 Promus Synergy, followed immediately downstream with a 2.25 x 8 Promus Synergy; 75%-->0%, no dissection. Successful PTCA/YUDY of proximal LCX with a 2.5 x 8 Promus Synergy, post dilated with a 3.0 x 8 NC balloon; 75%-->0%. no dissection. 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 Patient had elevated BNP of 926.7. Chest x-ray was concerning for some pulmonary vascular congestion has been started on IV furosemide. Patient also presented with chest pain. Patient had a series troponins that were negative. Stress test perfor med was abnormal but showed a fixed inferior defect consistent with prior IA. This showed a small area of septal reversible myocardial ischemia. This was discussed with Dr. Morton, of cardiology who recommended optimizing medications. He recommended starting the patient on Ranexa and to follow-up with cardiology for further recommendations. Patient not on an FRANK inhibitor due to cough. Patient was noted to have an EF of 23% which is at his baseline. Patient does have a defibrillator in place. For the patient's heart failure with reduced ejection fraction, patient will continue with is furosemide 20 mg daily. Patient does have a dyspnea on exertion does have a very extensive smoking history. Patient had previous smoked 2 to 3 packs/day but recently has only been smoking a pack a day. Patient will receive prescription for an albuterol metered-dose inhaler to use as needed. Patient may be considered for pulmonary evaluation if his still having dyspnea after his cardiac medications have been fully optimized. Patient is still an active smoker after very extensive smoking history. Advised patient to pick a date a week that he would quit smoking and see how long he can go for a resume smoking again and then try to be did the following week. [] - Physical Exam Vitals/I&O's: Vital Signs Temp Pulse Resp BP Pulse Ox 36.3 C L 54 L 18 121/65 H 99 08/26/20 11:50 08/26/20 11:50 08/26/20 11:50 08/26/20 11:50 08/26/20 11:50 Oxygen Delivery Method Room Air Weight: 88.6 kg Body Mass Index (BMI) 26.7 Intake and Output for Last 24 Hours 08/24/20 08/25/20 08/26/20 23:59 23:59 23:59 Intake Total 360 / 560 680 / 680 Balance 360 / 560 680 / 680 General: Alert, No apparent distress HEENT: Atraumatic, Normocephalic Oral: Moist Mucosa, No Gingival or Mucosal Lesions/ Ulcerations Neck: No Nodes, Thyroid Normal Size and Texture Lungs: Clear to auscultation, Normal air movement, No rhonchi, No wheeze, No rales Cardiovascular: Regular rate, Regular Rhythm, Normal S1, Normal S2, No murmurs Abdomen: Bowel Sounds Present, Soft, Non Tender, Non-Distended, No Hepato- splenomegaly Laboratory Results 08/25/20 14:40: PT 13.8, INR 1.1 08/25/20 14:40: Sodium 141, Potassium 4.5, Chloride 106, Carbon Dioxide 30.0, Anion Gap 5, BUN 30 H, Creatinine 1.64 H, Estim Creat Clear Calc 46.66, Est GFR (MDRD) Af Amer 54 L, Est GFR (MDRD) Non-Af 45 L, BUN/Creatinine Ratio 18.3, Glucose 107 H, Calcium 9.0, Troponin I < 0.015, Lipase 125 08/25/20 14:40: Total Bilirubin 0.50, Direct Bilirubin 0.18, AST 5 L, ALT 15 L, Alkaline Phosphatase 67, Total Protein 7.1, Albumin 4.0, Globulin 3.1 08/25/20 14:40: B-Natriuretic Peptide 926.7 H 08/25/20 23:08: Troponin I < 0.015 08/26/20 00:40: Troponin I 0.016 08/26/20 04:35: WBC 8.6, RBC 4.15 L, Hgb 12.3 L, Hct 37.1 L, MCV 89.4, MCH 29.6, MCHC 33.2, RDW Std Deviation 44.8 H, RDW Coeff of Jane 13.8, Plt Count 150, MPV 10.8, Immature Gran % (Auto) 0.300, Neut % (Auto) 60.1, Lymph % (Auto) 24.8, Whitman % (Auto) 11.4 H, Eos % (Auto) 2.9, Baso % (Auto) 0.5, Absolute Neuts (auto) 5.2, Absolute Lymphs (auto) 2.13, Nucleated RBC % 0 08/26/20 04:35: Sodium 140, Potassium 3.9, Chloride 104, Carbon Dioxide 28.0, Anion Gap 8, BUN 32 H, Creatinine 1.60 H, Estim Creat Clear Calc 47.83, Est GFR (MDRD) Af Amer 55 L, Est GFR (MDRD) Non-Af 46 L, BUN/Creatinine Ratio 20.0, Glucose 99, Calcium 8.6, Magnesium 2.3, Total Bilirubin 0.40, AST 7 L, ALT 13 L, Alkaline Phosphatase 59, Total Protein 6.4, Albumin 3.7, Globulin 2.7, Albumin/Globulin Ratio 1.4 08/26/20 04:35: Troponin I < 0.015 Current Medications Acetaminophen (Acetaminophen 325 Mg Tablet) 650 mg PO Q6H PRN PRN PRN Reason: Pain Score 1-10/Temp > 100.7 F Albuterol Sulfate (Albuterol 2.5 Mg/3 Ml Vial.Neb.) 2.5 mg INHALATION Q2H PRN PRN PRN Reason: SOB/Wheezing Aspirin (Aspirin 81 Mg Tab.Chew) 81 mg PO DAILY@0800 [facility] Last Admin: 08/26/20 05:45 Dose: 81 mg Documented by: Carvedilol (Carvedilol 12.5 Mg Tablet) 12.5 mg PO BID [facility] Last Admin: 08/26/20 11:38 Dose: Not Given Documented by: Clopidogrel Bisulfate (Clopidogrel Bisulfate 75 Mg Tablet) 75 mg PO DAILY [facility] Last Admin: 08/26/20 05:45 Dose: 75 mg Documented by: Ergocalciferol (Ergocalciferol 50,000 Unit Capsule) 50,000 unit PO QWEEK [facility] Furosemide (Furosemide 20 Mg/2 Ml Vial) 20 mg IV BID@1000,1800 [facility] Last Admin: 08/26/20 11:44 Dose: 20 mg Documented by: Heparin Sodium (Porcine) (Heparin Injection (Vial) 5,000 Unit/Ml Vial) 5,000 unit SC Q8 [facility] Last Admin: 08/26/20 11:39 Dose: Not Given Documented by: Sodium Chloride () 250 mls @ 15 mls/hr IV .[id number] PRN PRN Reason: Saline Flush Sodium Chloride () 250 mls @ 15 mls/hr IV .[id number] PRN PRN Reason: Additional IVPB Infusion Isosorbide Mononitrate (Isosorbide Mononitrate 60 Mg Tablet) 60 mg PO DAILY [facility] Last Admin: 08/26/20 11:44 Dose: 60 mg Documented by: Morphine Sulfate (Morphine 2 Mg/Ml Syringe) 2 mg IV Q3H PRN PRN PRN Reason: Pain Score 6-10 Nitroglycerin (Nitroglycerin (Inpatient Use) 0.4 Mg Tab.Subl) 0.4 mg SL Q5M PRN PRN Reason: CARDIAC/CHEST PAIN Ondansetron HCl (Ondansetron 4 Mg/2 Ml Vial) 4 mg IV Q8H PRN PRN PRN Reason: NAUSEA/VOMITING Rosuvastatin Calcium (Rosuvastatin Calcium 10 Mg Tablet) 10 mg PO QHS [facility] Last Admin: 08/25/20 21:55 Dose: 10 mg Documented by: Sodium Chloride (0.9% Saline Lock 10 Ml Syringe) 10 - 40 ml IV UD PRN PRN Reason: SALINE FLUSH Call your doctor if you observe: Shortness of breath, Chest pain Home Medications: Medications to take at Discharge rosuvastatin 10 mg tablet 10 mg PO QHS 09/22/19 icosapent ethyl 1 gram capsule 1 g PO DAILY 03/28/20 Carvedilol 12.5 mg PO BID 04/15/20 Clopidogrel Bisulfate [Clopidogrel] 75 mg PO DAILY 04/15/20 Melatonin 5 mg PO QHS PRN 04/15/20 ergocalciferol (vitamin D2) 1,250 mcg (50,000 unit) capsule 1,250 mcg PO Q14D 05/02/20 furosemide 40 mg tablet 20 mg PO BID tab 05/02/20 nitroglycerin 0.4 mg sublingual tablet 0.4 mg SUBLINGUAL Q5M PRN #25 tab 07/22/20 Aspirin E.C. [Ecotrin] 81 mg PO DAILY@0800 08/25/20 Icosapent Ethyl [Vascepa] 2 gm PO DAILY 08/25/20 Isosorbide Mononitrate [Isosorbide Mononitrate ER] 60 mg PO DAILY 08/25/20 Albuterol Inhaler [Ventolin Hfa] 1 - 2 puff INHALATION Q4H PRN PRN #1 inhaler 08/26/20 Ranolazine [Ranexa] 500 mg PO BID #60 tab.er.12h 08/26/20 Following Prescriptions Were Given to Patient: Ranolazine [Ranexa] 500 mg PO BID #60 tab.er.12h [facility]: [id number] Albuterol Inhaler [Ventolin Hfa] 1 - 2 puff INHALATION Q4H PRN PRN #1 inhaler PRN Reason: Shortness Of Breath Transmission [id number] Primary Care Physician: Eleuterio Abreu Chi, MD [Primary Care Provider] - Within 1 Week Please Follow Up With: Hernando Funez NP, [employer] When: 09/21/2020, already scheduled. Medical Necessity - Tobacco Use Smoking Status: Current every day smoker Tobacco Use: Non-smoker Meaningful Use Info Meaningful Use Diagnoses (Choose all that apply): CHF - CHF FRANK/ARB ordered at discharge?: No Reason FRANK/ARB not ordered?: Worsening renal disease Documented LVEF (%): 23 OBSV E&M: [id number] Observation care discharge
--- NOTE | 2020-08-26 15:25 | PHA.DC.MC ---
Pharmacy Service has performed discharge medication reconciliation and counseling for this patient. 1. ALBUTEROL INHALER 1-2 PUFFS Q4H PRN SOB 2. RANOLAZINE 500MG PO BID The patient's discharge medication list was reviewed for discrepancies and discrepancies were resolved. Home Medications rosuvastatin 10 mg tablet 10 mg PO QHS 09/22/19 icosapent ethyl 1 gram capsule 1 g PO DAILY 03/28/20 Carvedilol 12.5 mg PO BID 04/15/20 Clopidogrel Bisulfate [Clopidogrel] 75 mg PO DAILY 04/15/20 Melatonin 5 mg PO QHS PRN 04/15/20 ergocalciferol (vitamin D2) 1,250 mcg (50,000 unit) capsule 1,250 mcg PO Q14D 05/02/20 furosemide 40 mg tablet 20 mg PO BID tab 05/02/20 nitroglycerin 0.4 mg sublingual tablet 0.4 mg SUBLINGUAL Q5M PRN #25 tab 07/22/20 Aspirin E.C. [Ecotrin] 81 mg PO DAILY@0800 08/25/20 Icosapent Ethyl [Vascepa] 2 gm PO DAILY 08/25/20 Isosorbide Mononitrate [Isosorbide Mononitrate ER] 60 mg PO DAILY 08/25/20 Albuterol Inhaler [Ventolin Hfa] 1 - 2 puff INHALATION Q4H PRN PRN #1 inhaler 08/26/20 Ranolazine [Ranexa] 500 mg PO BID #60 tab.er.12h 08/26/20 The patient was counseled on the following discharge medications and changes in medications for homegoing were reviewed. The Reason for Use, instructions for use, and potential side effects were reviewed for all new medications. The patient's questions regarding all of their medications were answered. The patient was able to verbally demonstrate an understanding of their discharge medications.
[2020-08-26 15:55] VITALS: RESP 16
== END 2020-08-26 14:49 | disposition home or self-care (01) ==
LOC: ED 14:30 → PCU 16:31
PROVIDERS: Admitting Provider Internal Medicine; Emergency Provider Emergency Medicine; PCP Family Medicine Geriatric Medicine
DX: R07.89 Other chest pain (principal); I13.0 Hypertensive heart and chronic kidney disease with heart failure and stage 1 through stage 4 chronic kidney disease, or unspecified chronic kidney disease; E11.22 Type 2 diabetes mellitus with diabetic chronic kidney disease; N18.30 Chronic kidney disease, stage 3 unspecified; I50.23 Acute on chronic systolic (congestive) heart failure; I25.10 Atherosclerotic heart disease of native coronary artery without angina pectoris; I25.2 Old myocardial infarction; R06.02 Shortness of breath; I44.7 Left bundle-branch block, unspecified; R00.1 Bradycardia, unspecified; I25.5 Ischemic cardiomyopathy; E78.5 Hyperlipidemia, unspecified; Z95.5 Presence of coronary angioplasty implant and graft; Z79.899 Other long term (current) drug therapy; Z79.82 Long term (current) use of aspirin; Z79.02 Long term (current) use of antithrombotics/antiplatelets; Z95.810 Presence of automatic (implantable) cardiac defibrillator; F17.200 Nicotine dependence, unspecified, uncomplicated
CPT/HCPCS: 36415; 71045; 78452; 80048; 80053; 80076; 83690; 83735; 83880; 84484; 85025; 85610; 93005; 93017; 96372; 96374; 96376; 99218; 99284; 99406; A9500; A4216; G0378; J1940; J2785

== ENCOUNTER → 2020-09-12 11:36 | Outpatient (CLI) | payer MEDICARE, OTHER, SELFPAY ==
[2020-02-18 06:00] VITALS: BMI 28.0
[2020-08-25 17:27] VITALS: BMI 26.7
[2020-09-12 12:18] LABS: Absolute Lymphocyte Count 1.46 X10^3/uL (0.83-4.51); Absolute Neutrophil Count 6.6 X10^3/uL (2.0-7.7); Basophil# 0.04 X10^3/uL; Basophil% 0.4 % (0-1); Eosinophil# 0.23 X10^3/uL; Eosinophils% 2.4 % (0-5); Hematocrit 40.3 % (40-54); Hemoglobin 13.4 g/dL (13.0-16.5); Lymphocyte # 1.46 X10^3/ul (4.0); Lymphocyte % 15.5 % (19-41); Mean Corp Hgb Conc 33.3 g/dL (32-36); Mean Corpuscular Hgb 30.3 pg (27.0-32.0); Mean Corpuscular Volume 91.2 fL (80-94); Mean Platelet Vol. 10.8 fl (6.2-12.0); Monocyte# 1.11 X10^3/uL; Monocyte% 11.8 % (0-10); NRBC Flagged by Analyzer 0 % (0-5); Neutrophil # 6.57 X10^3/uL (2.7-7.7); Neutrophil % 69.6 % (47-70); Platelet Count 166 K/mm3 (150-450); RBC Distribution Width CV 14.4 % (11.6-14.6); RBC Distribution Width SD 47.9 fl (35.1-43.9); Red Blood Count 4.42 M/mm3 (4.6-6.2); White Blood Count 9.4 K/mm3 (4.4-11.0)
[2020-09-12 12:34] LABS: Vitamin D,25 Hydroxy 53.2 ng/mL
[2020-09-12 12:35] LABS: ALB/GLOB Ratio 1.3 RATIO (0.9-2.4); AST(SGOT) 6 U/L (15-37); Alanine Aminotransfer ALT/SGPT 16 U/L (16-61); Albumin, Serum 3.8 g/dL (3.2-5.0); Alkaline Phosphatase 67 U/L (45-117); Anion Gap 4 (5-15); BUN 31 mg/dL (7-18); Calcium,Total 8.7 mg/dL (8.5-10.1); Chloride 108 mmol/L (98-107); Creatinine, Serum 1.94 mg/dL (0.70-1.30); EST Glomerular Filtration Rate 37 mL/min (>60); Est Glom Filt Rate - Afr Amer 44 mL/min (>60); Glucose 108 mg/dL (74-106); PSA,Total - Annual Screen 1.53 ng/mL (0.00-4.00); Potassium 3.9 mmol/L (3.5-5.1); Protein, Total 6.8 g/dL (6.4-8.2); Sodium Level 140 mmol/L (136-145); Thyroid Stim Hormone (TSH) 1.06 uIU/mL (0.358-3.74)
== END ==
PROVIDERS: PCP Family Medicine Geriatric Medicine; Visit Provider Family Medicine Geriatric Medicine
DX: I10 Essential (primary) hypertension (principal); E55.9 Vitamin D deficiency, unspecified; Z12.5 Encounter for screening for malignant neoplasm of prostate
CPT/HCPCS: 36415; 80053; 82306; 84153; 84443; 85025; G0103

== ENCOUNTER → 2020-12-15 11:41 | Outpatient (CLI) | payer MEDICARE, OTHER, SELFPAY ==
[2020-02-18 06:00] VITALS: BMI 28.0
[2020-09-21 10:02] VITALS: BMI 26.9
[2020-12-15 12:25] LABS: Absolute Lymphocyte Count 1.29 X10^3/uL (0.83-4.51); Basophil# 0.04 X10^3/uL; Basophil% 0.5 % (0-1); Eosinophil# 0.18 X10^3/uL; Eosinophils% 2.4 % (0-5); Hematocrit 40.6 % (40-54); Hemoglobin 13.3 g/dL (13.0-16.5); Lymphocyte # 1.29 X10^3/ul (0.83-4.51); Lymphocyte % 17.2 % (19-41); Mean Corp Hgb Conc 32.8 g/dL (32-36); Mean Corpuscular Hgb 30.4 pg (27.0-32.0); Mean Corpuscular Volume 92.9 fL (80-94); Mean Platelet Vol. 10.9 fl (6.2-12.0); Monocyte# 0.92 X10^3/uL; Monocyte% 12.3 % (0-10); NRBC Flagged by Analyzer 0 % (0-5); Neutrophil # 5.03 X10^3/uL (2.7-7.7); Neutrophil % 67.1 % (47-70); Platelet Count 199 K/mm3 (150-450); RBC Distribution Width CV 14.3 % (11.6-14.6); RBC Distribution Width SD 49.5 fl (35.1-43.9); Red Blood Count 4.37 M/mm3 (4.6-6.2); White Blood Count 7.5 K/mm3 (4.4-11.0)
[2020-12-15 12:44] LABS: Vitamin D,25 Hydroxy 61.7 ng/mL
[2020-12-15 12:50] LABS: ALB/GLOB Ratio 1.2 RATIO (0.9-2.4); AST(SGOT) 10 U/L (15-37); Alanine Aminotransfer ALT/SGPT 16 U/L (16-61); Albumin, Serum 3.8 g/dL (3.2-5.0); Alkaline Phosphatase 67 U/L (45-117); Anion Gap 3 (5-15); BUN 33 mg/dL (7-18); BUN/Creat Ratio 15.9 RATIO (10-20); Calcium,Total 8.6 mg/dL (8.5-10.1); Chloride 109 mmol/L (98-107); Creatinine, Serum 2.07 mg/dL (0.70-1.30); EST Glomerular Filtration Rate 34 mL/min (>60); Est Glom Filt Rate - Afr Amer 41 mL/min (>60); Globulin 3.2 g/dL (2.2-4.2); Glucose 159 mg/dL (74-106); Potassium 4.3 mmol/L (3.5-5.1); Sodium Level 140 mmol/L (136-145); Thyroid Stim Hormone (TSH) 1.32 uIU/mL (0.358-3.74)
== END ==
PROVIDERS: PCP Family Medicine Geriatric Medicine; Visit Provider Family Medicine Geriatric Medicine
DX: E11.65 Type 2 diabetes mellitus with hyperglycemia (principal); I10 Essential (primary) hypertension; E55.9 Vitamin D deficiency, unspecified
CPT/HCPCS: 36415; 80053; 82306; 84443; 85025

== ENCOUNTER → 2021-01-05 15:58 | Outpatient (CLI) | payer MEDICARE, OTHER, SELFPAY ==
[2020-02-18 06:00] VITALS: BMI 28.0
[2020-09-21 10:02] VITALS: BMI 26.9
--- NOTE | 2021-01-05 16:13 | RAD_ITS ---
STUDY: X-RAY CHEST REASON FOR EXAM: Male, 70 years old. Shortness of breath. Abdominal pain. TECHNIQUE: PA and lateral views of the chest. COMPARISON: 08/25/2020 FINDINGS: The lungs are well-expanded. There is chronic interstitial changes at the lung bases without new infiltrate or mass. There is no demonstrated pleural abnormality. Stable cardiomegaly. Stable right sided pacemaker. Normal mediastinum and azra. Normal visualized pulmonary arteries. Normal visualized aortic arch and descending thoracic aorta. There are diffuse degenerative changes of the visualized thoracic spine. Normal visualized ribs, clavicles, and shoulders. There is no demonstrated abnormality of the visualized soft tissue structures of the upper abdomen. RAD/Chest PA and Lateral IMPRESSION: No acute cardiopulmonary disease. Electronically Signed: Haile Olivas DO at 21:16 EDT Tel [phone], Service support ,
--- NOTE | 2021-01-05 16:13 | RAD_ITS ---
STUDY: X-RAY - ABDOMEN/PELVIS REASON FOR EXAM: Male, 70 years old. Abdominal pain. Bloating and nausea. TECHNIQUE: Two AP supine views of the abdomen and pelvis. COMPARISON: None. FINDINGS: Normal visualized lung bases. There is a pacer electrode in the enlarged heart. There is an unremarkable bowel gas pattern. There is no demonstrated free abdominal air. The visualized liver, spleen and kidneys are grossly normal in size and morphology. There are calcified phleboliths in the pelvis. Normal visualized osseous structures. RAD/Abdomen Single View IMPRESSION: No evidence of acute intra-abdominal process. Electronically Signed: Haile Olivas DO at 21:16 EDT Tel [phone], Service support ,
[2021-01-05 16:31] LABS: Absolute Lymphocyte Count 1.99 X10^3/uL (0.83-4.51); Absolute Neutrophil Count 4.9 X10^3/uL (2.0-7.7); Basophil# 0.04 X10^3/uL; Basophil% 0.5 % (0-1); Eosinophils% 2.4 % (0-5); Hematocrit 37.8 % (40-54); Hemoglobin 12.3 g/dL (13.0-16.5); Lymphocyte # 1.99 X10^3/ul (0.83-4.51); Mean Corp Hgb Conc 32.5 g/dL (32-36); Mean Corpuscular Hgb 30.8 pg (27.0-32.0); Mean Corpuscular Volume 94.5 fL (80-94); Monocyte# 1.12 X10^3/uL; Monocyte% 13.5 % (0-10); NRBC Flagged by Analyzer 0 % (0-5); Neutrophil # 4.91 X10^3/uL (2.7-7.7); Neutrophil % 59.2 % (47-70); Platelet Count 154 K/mm3 (150-450); RBC Distribution Width CV 14.8 % (11.6-14.6); White Blood Count 8.3 K/mm3 (4.4-11.0)
[2021-01-05 16:43] LABS: D-Dimer Quantitative (DVT/PE) 1.52 FEU/ug/m (0.27-0.49)
[2021-01-05 16:54] LABS: ALB/GLOB Ratio 1.2 RATIO (0.9-2.4); AST(SGOT) 12 U/L (15-37); Alanine Aminotransfer ALT/SGPT 22 U/L (16-61); Albumin, Serum 3.7 g/dL (3.2-5.0); Alkaline Phosphatase 58 U/L (45-117); Anion Gap 5 (5-15); BUN 37 mg/dL (7-18); BUN/Creat Ratio 15.2 RATIO (10-20); CPK Total, Creatine Kinase 46 U/L (39-308); Calcium,Total 8.5 mg/dL (8.5-10.1); Chloride 104 mmol/L (98-107); Creatinine, Serum 2.43 mg/dL (0.70-1.30); EST Glomerular Filtration Rate 28 mL/min (>60); Est Glom Filt Rate - Afr Amer 34 mL/min (>60); Glucose 90 mg/dL (74-106); Potassium 3.7 mmol/L (3.5-5.1); Protein, Total 6.7 g/dL (6.4-8.2); Sodium Level 140 mmol/L (136-145); Thyroid Stim Hormone (TSH) 1.11 uIU/mL (0.358-3.74); Troponin-I HS 43.1 pg/mL (3.0-78.5)
[2021-01-07 13:10] LABS: Myoglobin, Serum 66 ng/mL (28-72)
== END ==
PROVIDERS: PCP Family Medicine Geriatric Medicine; Referring Provider Family Medicine Geriatric Medicine; Visit Provider Family Medicine Geriatric Medicine
DX: I50.23 Acute on chronic systolic (congestive) heart failure (principal); R53.83 Other fatigue; R06.02 Shortness of breath; R07.9 Chest pain, unspecified; R10.9 Unspecified abdominal pain
CPT/HCPCS: 36415; 71046; 74018; 80053; 82550; 83874; 83880; 84443; 84484; 85025; 85379

== ENCOUNTER → 2021-01-06 11:01 | Outpatient (CLI) | payer MEDICARE, OTHER, SELFPAY ==
[2020-02-18 06:00] VITALS: BMI 28.0
[2020-09-21 10:02] VITALS: BMI 26.9
[2021-01-06 12:21] LABS: Anion Gap 6 (5-15); BUN 41 mg/dL (7-18); Calcium,Total 8.6 mg/dL (8.5-10.1); Chloride 108 mmol/L (98-107); Creatinine, Serum 2.05 mg/dL (0.70-1.30); EST Glomerular Filtration Rate 34 mL/min (>60); Est Glom Filt Rate - Afr Amer 42 mL/min (>60); Glucose 146 mg/dL (74-106); Potassium 3.7 mmol/L (3.5-5.1); Sodium Level 140 mmol/L (136-145)
== END ==
PROVIDERS: PCP Family Medicine Geriatric Medicine; Visit Provider Family Medicine Geriatric Medicine
DX: N17.9 Acute kidney failure, unspecified (principal)
CPT/HCPCS: 36415; 80048

== ENCOUNTER → 2021-01-06 17:01 | Outpatient (CLI) | payer MEDICARE, OTHER, SELFPAY ==
[2020-02-18 06:00] VITALS: BMI 28.0
[2020-09-21 10:02] VITALS: BMI 26.9
--- NOTE | 2021-01-06 17:07 | CT_ITS ---
STUDY: CTA CHEST REASON FOR EXAM: Male, 70 years old. Abnormal coagulation profile. RADIATION DOSAGE (If Supplied By Facility): CTDIvol = ( 18.04 ) mGy, DLP = ( 397.58 ) mGycm TECHNIQUE: The examination was performed with the intravenous administration of IV 100mL Isovue-370. Post-processing of the angiographic images was performed, with multiplanar reformation and 3D reconstruction. Individualized dose optimization techniques were used for this CT. COMPARISON: 04/15/2020 FINDINGS: Normal enhancement of the main pulmonary artery and right and left pulmonary arteries. Normal enhancement of the bilateral peripheral pulmonary arteries. There is no demonstrated pulmonary embolism. Atherosclerosis of the thoracic aorta. There is no demonstrated aortic dissection. No pericardial thickening. There is cardiomegaly (increased since prior study) with left ventricular dilation. Single-lead cardiac conduction device. The right subclavian vein is stable. Increased adenopathy of the mediastinum including a Station 4L lymph node measuring 1.6 x 1.5 cm (previously measured 0.9 x 1.4 cm). No hilar adenopathy demonstrated. Normal visualized trachea and bronchi. The lungs are well expanded. No airspace consolidation. Small right and trace left pleural effusions. Normal chest wall structures. There are degenerative changes of thoracic spine. Normal visualized upper abdomen. CT/CTA Chest W/WO Contrast IMPRESSION: 1. No central or segmental pulmonary embolism. 2. Small right and trace left pleural effusions, stable. 3. Cardiomegaly with left ventricular dilation with increased cardiomegaly since prior study. 4. Increased mediastinal adenopathy since the prior study measuring up to 1.6 cm. Electronically Signed: Bucky Coley MD ([place]) at 17:52 EDT , Service support ,
== END ==
PROVIDERS: PCP Family Medicine Geriatric Medicine; Referring Provider Family Medicine Geriatric Medicine; Visit Provider Family Medicine Geriatric Medicine
DX: R79.1 Abnormal coagulation profile (principal)
CPT/HCPCS: 36415; 71275; 80048; Q9967

== ENCOUNTER → 2021-01-09 14:42 | Outpatient (CLI) | payer MEDICARE, OTHER, SELFPAY ==
[2020-02-18 06:00] VITALS: BMI 28.0
[2020-09-21 10:02] VITALS: BMI 26.9
[2021-01-09 16:23] LABS: Anion Gap 6 (5-15); BUN 38 mg/dL (7-18); BUN/Creat Ratio 18.4 RATIO (10-20); Calcium,Total 8.6 mg/dL (8.5-10.1); Chloride 105 mmol/L (98-107); Creatinine, Serum 2.06 mg/dL (0.70-1.30); EST Glomerular Filtration Rate 34 mL/min (>60); Est Glom Filt Rate - Afr Amer 41 mL/min (>60); Glucose 104 mg/dL (74-106); Sodium Level 141 mmol/L (136-145)
== END ==
PROVIDERS: PCP Family Medicine Geriatric Medicine; Visit Provider Family Medicine Geriatric Medicine
DX: I50.23 Acute on chronic systolic (congestive) heart failure (principal); N17.9 Acute kidney failure, unspecified
CPT/HCPCS: 36415; 80048; 83880

== ENCOUNTER → 2021-01-17 13:52 | Outpatient (CLI) | payer MEDICARE, OTHER, SELFPAY ==
[2020-02-18 06:00] VITALS: BMI 28.0
[2020-09-21 10:02] VITALS: BMI 26.9
[2021-01-17 20:34] LABS: Albumin, Serum 3.8 g/dL (3.2-5.0); BUN 42 mg/dL (7-18); BUN/Creat Ratio 19.4 RATIO (10-20); Calcium,Total 8.8 mg/dL (8.5-10.1); Chloride 108 mmol/L (98-107); Creatinine, Serum 2.16 mg/dL (0.70-1.30); EST Glomerular Filtration Rate 32 mL/min (>60); Est Glom Filt Rate - Afr Amer 39 mL/min (>60); Glucose 121 mg/dL (74-106); Potassium 4.1 mmol/L (3.5-5.1); Sodium Level 140 mmol/L (136-145)
== END ==
PROVIDERS: PCP Family Medicine Geriatric Medicine; Visit Provider Internal Medicine Nephrology
DX: N17.9 Acute kidney failure, unspecified (principal)
CPT/HCPCS: 36415; 80069

== ENCOUNTER → 2021-02-08 15:08 | Outpatient (CLI) | payer MEDICARE, OTHER, SELFPAY ==
[2020-02-18 06:00] VITALS: BMI 28.0
--- NOTE | 2021-02-08 15:34 | CT_ITS ---
STUDY: CT ABDOMEN AND PELVIS WITH CONTRAST REASON FOR EXAM: Male, 70 years old. Acute abdominal pain. Epigastric pressure for one month. Diet-controlled diabetes, hypertension and history of heart disease.. History of bilateral inguinal hernia repair. RADIATION DOSAGE (If Supplied By Facility): CTDIvol = ( 35.32 ) mGy, DLP = ( 1151.59 ) mGycm TECHNIQUE: Transaxial images were obtained from the dome of the diaphragm to the symphysis pubis with oral contrast. Oral and amp; IV Gastrografin and amp; 75mL Isovue-300 was administered. Sagittal and coronal images were reconstructed. Individualized dose optimization techniques were used for this CT. COMPARISON: Abdomen, 12/06/2020. FINDINGS: Small right pleural effusion. The lungs bases are clear. The visualized portions of the heart are within normal limits. Pacer leads are seen in the right heart. There is diffuse fatty infiltration of liver without focal mass. Normal gallbladder and extrahepatic biliary system. Normal spleen. Normal pancreas. Normal bilateral adrenal glands. There is scarring in the lower pole of the right kidney. Small exophytic 1 cm cyst. No renal calculi or hydronephrosis. Normal left kidney. Normal left ureter. Normal visualized stomach. Normal small intestine. Scattered sigmoid diverticula without acute inflammatory change. Proximal colon is unremarkable. The appendix is visualized and appears normal. There is atherosclerotic changes of the abdominal aorta. There is an infrarenal fusiform abdominal aortic aneurysm measuring 4.6 x 4.5 cm greatest diameter. There is no rupture or leakage. Normal IVC. There is stranding of the retroperitoneal fat in the pararenal fascial planes most marked on the right. Normal urinary bladder. Normal prostate. No pelvic lymphadenopathy. There is mild ascites most marked in the pelvis. No free air. Normal abdominal wall. There are diffuse degenerative changes of the visualized lumbar spine. CT/Abdomen/Pelvis WITH Contrast IMPRESSION: 1. Infrarenal abdominal aortic aneurysm without rupture or leakage. 2. Sigmoid diverticulosis without acute inflammatory change. 3. Mild ascites. 4. Fatty infiltration of the liver. 5. Cardiac pacemaker. 6. Small right pleural effusion. Electronically Signed: Haile Olivas DO at 19:02 EDT Tel [phone], Service support ,
[2021-02-08 15:45] LABS: Absolute Lymphocyte Count 1.28 X10^3/uL (0.83-4.51); Absolute Neutrophil Count 5.8 X10^3/uL (2.0-7.7); Basophil# 0.04 X10^3/uL; Basophil% 0.5 % (0-1); Eosinophil# 0.12 X10^3/uL; Eosinophils% 1.4 % (0-5); Hematocrit 38.8 % (40-54); Hemoglobin 12.3 g/dL (13.0-16.5); Lymphocyte # 1.28 X10^3/ul (0.83-4.51); Lymphocyte % 14.8 % (19-41); Mean Corp Hgb Conc 31.7 g/dL (32-36); Mean Corpuscular Hgb 30.4 pg (27.0-32.0); Mean Platelet Vol. 11.8 fl (6.2-12.0); Monocyte# 1.39 X10^3/uL; Monocyte% 16.1 % (0-10); NRBC Flagged by Analyzer 0 % (0-5); Neutrophil # 5.79 X10^3/uL (2.7-7.7); Neutrophil % 66.7 % (47-70); Platelet Count 157 K/mm3 (150-450); RBC Distribution Width CV 16.1 % (11.6-14.6); RBC Distribution Width SD 56.2 fl (35.1-43.9); Red Blood Count 4.04 M/mm3 (4.6-6.2); White Blood Count 8.7 K/mm3 (4.4-11.0)
[2021-02-08 15:47] LABS: Albumin, Serum 3.3 g/dL (3.2-5.0); Anion Gap 6 (5-15); BUN 42 mg/dL (7-18); BUN/Creat Ratio 18.3 RATIO (10-20); Calcium,Total 8.6 mg/dL (8.5-10.1); Chloride 103 mmol/L (98-107); EST Glomerular Filtration Rate 30 mL/min (>60); Est Glom Filt Rate - Afr Amer 36 mL/min (>60); Glucose 106 mg/dL (74-106); Potassium 3.7 mmol/L (3.5-5.1); Sodium Level 140 mmol/L (136-145)
== END ==
PROVIDERS: PCP Family Medicine Geriatric Medicine; Visit Provider Family Medicine Geriatric Medicine
DX: R10.9 Unspecified abdominal pain (principal); I50.23 Acute on chronic systolic (congestive) heart failure
CPT/HCPCS: 36415; 74177; 80048; 82040; 83880; 85025; Q9967

== ENCOUNTER → 2021-02-14 12:06 | Outpatient (CLI) | payer MEDICARE, OTHER, SELFPAY ==
[2020-02-18 06:00] VITALS: BMI 28.0
[2020-05-23 07:03] VITALS: BMI 26.9
[2021-02-14 13:07] LABS: Albumin, Serum 3.3 g/dL (3.2-5.0); BUN 52 mg/dL (7-18); BUN/Creat Ratio 22.4 RATIO (10-20); Calcium,Total 9.1 mg/dL (8.5-10.1); Chloride 95 mmol/L (98-107); Creatinine, Serum 2.32 mg/dL (0.70-1.30); EST Glomerular Filtration Rate 30 mL/min (>60); Est Glom Filt Rate - Afr Amer 36 mL/min (>60); Glucose 102 mg/dL (74-106); Potassium 3.4 mmol/L (3.5-5.1); Sodium Level 134 mmol/L (136-145)
== END ==
PROVIDERS: PCP Family Medicine Geriatric Medicine; Referring Provider Family Medicine Geriatric Medicine; Visit Provider Family Medicine Geriatric Medicine
DX: N17.9 Acute kidney failure, unspecified (principal)
CPT/HCPCS: 36415; 80069

== ENCOUNTER → 2021-02-17 15:42 | Outpatient (CLI) | payer MEDICARE, OTHER, SELFPAY ==
[2020-02-18 06:00] VITALS: BMI 28.0
[2021-02-17 16:49] LABS: Anion Gap 7 (5-15); BUN 56 mg/dL (7-18); BUN/Creat Ratio 25.3 RATIO (10-20); Calcium,Total 8.9 mg/dL (8.5-10.1); Chloride 97 mmol/L (98-107); Creatinine, Serum 2.21 mg/dL (0.70-1.30); EST Glomerular Filtration Rate 32 mL/min (>60); Est Glom Filt Rate - Afr Amer 38 mL/min (>60); Glucose 351 mg/dL (74-106); Potassium 3.6 mmol/L (3.5-5.1); Sodium Level 132 mmol/L (136-145)
== END ==
PROVIDERS: PCP Family Medicine Geriatric Medicine; Visit Provider Family Medicine Geriatric Medicine
DX: N17.0 Acute kidney failure with tubular necrosis (principal)
CPT/HCPCS: 36415; 80048

== ENCOUNTER → 2021-02-24 13:47 | Outpatient (CLI) | payer MEDICARE, OTHER, SELFPAY ==
[2020-02-18 06:00] VITALS: BMI 28.0
[2021-02-24 15:31] LABS: Anion Gap 7 (5-15); BUN 54 mg/dL (7-18); BUN/Creat Ratio 26.6 RATIO (10-20); Calcium,Total 8.8 mg/dL (8.5-10.1); Chloride 104 mmol/L (98-107); Creatinine, Serum 2.03 mg/dL (0.70-1.30); EST Glomerular Filtration Rate 35 mL/min (>60); Est Glom Filt Rate - Afr Amer 42 mL/min (>60); Glucose 157 mg/dL (74-106); Potassium 4.7 mmol/L (3.5-5.1); Sodium Level 137 mmol/L (136-145)
== END ==
PROVIDERS: PCP Family Medicine Geriatric Medicine; Visit Provider Family Medicine Geriatric Medicine
DX: N17.9 Acute kidney failure, unspecified (principal)
CPT/HCPCS: 36415; 80048

== ENCOUNTER → 2021-03-07 14:05 | Outpatient (CLI) | payer MEDICARE, OTHER, SELFPAY ==
[2020-02-18 06:00] VITALS: BMI 28.0
--- NOTE | 2021-03-07 14:09 | ECHOD_ITS ---
Reason For Study: Murmur Procedure This was a 2D Doppler, Color Flow transthoracic echocardiogram. The exam was of adequate technical quality. Exam performed in department. Left Ventricle Severely dilated left ventricle. Severe segmental systolic dysfunction (see wall motion). The estimated ejection fraction is 15 %. Anterio-Basal: Severely hypokinetic. Lateral-Basal: Severely Hypokinetic. Posterior-Basal: Severely hypokinetic. Infero-Basal: Severely Hypokinetic. Basal inferoseptal: Severely Hypokinetic. Basal anteroseptal: Severely Hypokinetic. Mid-Anterior : Severely Hypokinetic. Mid-Lateral : Severely Hypokinetic. Mid-Posterior: Akinetic. Mid-Inferior: Akinetic. Mid-inferoseptal : Akinetic. Mid-anteroseptal : Severely Hypokinetic. [place] : Akinetic. Right Ventricle Normal RV size. ICD or pacer leads identified within the right ventricle. Mild global right ventricular systolic dysfunction. Atria The left atrium is severely enlarged. The right atrium is mildly enlarged. ICD or pacer leads identified within the right atrium. No doppler evidence for ASD. Mitral Valve There is no mitral annular calcification. Mild diffuse mitral valve thickening. Mild papillary muscle dysfunction of the mitral valve. Moderately severe (3+) eccentric mitral valve insufficiency. Tricuspid Valve Normal tricuspid valve. Moderately severe (3+) tricuspid valve insufficiency. Right ventricular systolic pressure estimated to be 60 mmHg. Aortic Valve Trisinus/trileaflet aortic valve. Normal aortic valve. Pulmonic Valve The pulmonic valve is not well visualized. Mild (1+) pulmonic valve insufficiency. Great Vessels Normal sized aortic root. Pericardium/Pleural No pericardial effusion. MMode/2D Measurements & Calculations LVIDd: 7.3 cm IVSd: 1.1 cm Ao root diam: 3.7 cm LVIDs: 6.9 cm LVPWd: 1.3 cm LA dimension: 5.8 cm FS: 6.1 % LAV(MOD-bp): 139.6 ml LA A4 area: 35.2 cm2 RA A4 area: 25.4 cm2 LAV(MOD-bp) Indexed: 65.4 ml/m2 LAV(MOD-sp2): 132.1 ml LAV(MOD-sp4): 138.5 ml Time Measurements MV dec time: 0.19 sec Doppler Measurements & Calculations MV E max tom: 109.4 cm/sec Lat Peak E' Tom: 8.5 cm/sec Med Peak E' Tom: 4.5 cm/sec MV A max tom: 74.2 cm/sec E/E' lat: 12.9 E/E' med: 24.6 MV E/A: 1.5 MV V2 max: 139.7 cm/sec MV P1/2t max tom: 140.4 cm/sec Ao V2 max: 109.5 cm/sec MV max P.8 mmHg MV P1/2t: 44.2 msec Ao max P.8 mmHg MV V2 mean: 73.4 cm/sec MV dec slope: 930.3 cm/sec2 MV mean P.6 mmHg MVA(P1/2t): 5.0 cm2 MV V2 VTI: 26.2 cm LV V1 max: 72.9 cm/sec MR max otm: 500.6 cm/sec PA V2 max: 86.7 cm/sec LV V1 max P.1 mmHg MR max P.3 mmHg MR mean tom: 333.7 cm/sec MR mean P.8 mmHg MR VTI: 165.7 cm TR max tom: 378.2 cm/sec TR max P.2 mmHg ECHO/Echo Complete Interpretation Summary Severely dilated left ventricle. Severe segmental systolic dysfunction (see wall motion). The estimated ejection fraction is 15 %. Mild global right ventricular systolic dysfunction. The left atrium is severely enlarged. The right atrium is mildly enlarged. Mild diffuse mitral valve thickening. Mild papillary muscle dysfunction of the mitral valve. Moderately severe (3+) eccentric mitral valve insufficiency. Moderately severe (3+) tricuspid valve insufficiency. Mild (1+) pulmonic valve insufficiency. Right ventricular systolic pressure estimated to be 60 mmHg. Transmitral diastolic flow velocities suggest diastolic dysfunction (pseudonorm al pattern). ICD or pacer leads identified within the right atrium ICD or pacer leads identified within the right ventricle. Comment: Small mobile echodensity appearing to be associated with the ICD/pacer wire in the right atrium compatible with a filamentous/fibrinous strand. Ordering Physician: Pratik Yoder Referring Physician: Eleuterio Abreu Chi Performed By: Ruddy Francisco RCS
[2021-03-07 16:22] LABS: Anion Gap 10 (5-15); BUN 46 mg/dL (7-18); BUN/Creat Ratio 18.9 RATIO (10-20); Calcium,Total 8.8 mg/dL (8.5-10.1); Chloride 98 mmol/L (98-107); Creatinine, Serum 2.43 mg/dL (0.70-1.30); EST Glomerular Filtration Rate 28 mL/min (>60); Est Glom Filt Rate - Afr Amer 34 mL/min (>60); Glucose 136 mg/dL (74-106); Potassium 3.7 mmol/L (3.5-5.1); Sodium Level 138 mmol/L (136-145)
== END ==
PROVIDERS: PCP Family Medicine Geriatric Medicine; Referring Provider Internal Medicine Cardiovascular Disease; Visit Provider Internal Medicine Cardiovascular Disease
DX: I25.10 Atherosclerotic heart disease of native coronary artery without angina pectoris (principal); I43 Cardiomyopathy in diseases classified elsewhere; N18.30 Chronic kidney disease, stage 3 unspecified; I05.1 Rheumatic mitral insufficiency; Z95.5 Presence of coronary angioplasty implant and graft
CPT/HCPCS: 36415; 80048; 93306

== ENCOUNTER → 2021-03-16 12:07 | Outpatient (CLI) | payer MEDICARE, OTHER, SELFPAY ==
[2020-02-18 06:00] VITALS: BMI 28.0
[2021-03-16 13:37] LABS: Anion Gap 5 (5-15); BUN 43 mg/dL (7-18); BUN/Creat Ratio 21.7 RATIO (10-20); Chloride 99 mmol/L (98-107); Creatinine, Serum 1.98 mg/dL (0.70-1.30); EST Glomerular Filtration Rate 36 mL/min (>60); Est Glom Filt Rate - Afr Amer 43 mL/min (>60); Glucose 156 mg/dL (74-106); Potassium 3.4 mmol/L (3.5-5.1); Sodium Level 138 mmol/L (136-145)
== END ==
PROVIDERS: PCP Family Medicine Geriatric Medicine; Referring Provider Internal Medicine Cardiovascular Disease; Visit Provider Internal Medicine Cardiovascular Disease
DX: I25.10 Atherosclerotic heart disease of native coronary artery without angina pectoris (principal); I43 Cardiomyopathy in diseases classified elsewhere; Z95.5 Presence of coronary angioplasty implant and graft
CPT/HCPCS: 36415; 80048

== ENCOUNTER → 2021-03-24 10:19 | Outpatient (CLI) | payer MEDICARE, OTHER, SELFPAY ==
[2020-02-18 06:00] VITALS: BMI 28.0
[2021-03-24 12:43] LABS: Absolute Lymphocyte Count 1.29 X10^3/uL (0.83-4.51); Absolute Neutrophil Count 6.3 X10^3/uL (2.0-7.7); Basophil# 0.04 X10^3/uL; Basophil% 0.4 % (0-1); Eosinophil# 0.11 X10^3/uL; Eosinophils% 1.2 % (0-5); Hematocrit 38.8 % (40-54); Hemoglobin 12.4 g/dL (13.0-16.5); Lymphocyte # 1.29 X10^3/ul (0.83-4.51); Lymphocyte % 13.7 % (19-41); Mean Corpuscular Hgb 28.6 pg (27.0-32.0); Mean Corpuscular Volume 89.4 fL (80-94); Mean Platelet Vol. 11.4 fl (6.2-12.0); Monocyte# 1.65 X10^3/uL; Monocyte% 17.5 % (0-10); NRBC Flagged by Analyzer 0 % (0-5); Neutrophil # 6.29 X10^3/uL (2.7-7.7); Neutrophil % 66.6 % (47-70); POSITIVE DIFFERENTIAL YES; Platelet Count 202 K/mm3 (150-450); RBC Distribution Width CV 16.5 % (11.6-14.6); RBC Distribution Width SD 53.9 fl (35.1-43.9); Red Blood Count 4.34 M/mm3 (4.6-6.2); White Blood Count 9.4 K/mm3 (4.4-11.0)
[2021-03-24 12:51] LABS: Differential Indicated SCAN CRITERIA MET
[2021-03-24 13:06] LABS: ALB/GLOB Ratio 0.7 RATIO (0.9-2.4); AST(SGOT) 13 U/L (15-37); Alanine Aminotransfer ALT/SGPT 16 U/L (16-61); Alkaline Phosphatase 92 U/L (45-117); Anion Gap 9 (5-15); BUN 55 mg/dL (7-18); BUN/Creat Ratio 23.3 RATIO (10-20); Calcium,Total 9.3 mg/dL (8.5-10.1); Chloride 93 mmol/L (98-107); Creatinine, Serum 2.36 mg/dL (0.70-1.30); EST Glomerular Filtration Rate 29 mL/min (>60); Est Glom Filt Rate - Afr Amer 35 mL/min (>60); Globulin 4.2 g/dL (2.2-4.2); Glucose 162 mg/dL (74-106); Potassium 3.6 mmol/L (3.5-5.1); Protein, Total 7.2 g/dL (6.4-8.2); Sodium Level 134 mmol/L (136-145); Thyroid Stim Hormone (TSH) 2.11 uIU/mL (0.358-3.74)
[2021-03-24 13:32] LABS: Platelet Estimate ADEQUATE (ADEQ)
[2021-03-24 13:33] LABS: Ovalocyte 1+
== END ==
PROVIDERS: PCP Family Medicine Geriatric Medicine; Visit Provider Family Medicine Geriatric Medicine
DX: I10 Essential (primary) hypertension (principal); E55.9 Vitamin D deficiency, unspecified
CPT/HCPCS: 36415; 80053; 82306; 84443; 85025

== ENCOUNTER → 2021-03-31 15:43 | Outpatient (CLI) | payer MEDICARE, OTHER, SELFPAY ==
[2020-02-18 06:00] VITALS: BMI 28.0
[2021-03-31 17:36] LABS: Anion Gap 6 (5-15); BUN 59 mg/dL (7-18); BUN/Creat Ratio 23.6 RATIO (10-20); Calcium,Total 9.3 mg/dL (8.5-10.1); Chloride 98 mmol/L (98-107); EST Glomerular Filtration Rate 27 mL/min (>60); Est Glom Filt Rate - Afr Amer 33 mL/min (>60); Glucose 131 mg/dL (74-106); Potassium 3.9 mmol/L (3.5-5.1); Sodium Level 136 mmol/L (136-145)
== END ==
PROVIDERS: PCP Family Medicine Geriatric Medicine; Visit Provider Internal Medicine Cardiovascular Disease
DX: I25.10 Atherosclerotic heart disease of native coronary artery without angina pectoris (principal); I47.2 Ventricular tachycardia; Z95.5 Presence of coronary angioplasty implant and graft
CPT/HCPCS: 36415; 80048

== ENCOUNTER 2021-06-21 11:45 | Outpatient (CLI) | payer MEDICARE, OTHER, SELFPAY ==
[2020-02-18 06:00] VITALS: BMI 28.0
[2021-06-21 12:40] LABS: Absolute Neutrophil Count 4.6 X10^3/uL (2.0-7.7); Basophil# 0.06 X10^3/uL; Basophil% 0.8 % (0-1); Eosinophil# 0.23 X10^3/uL; Eosinophils% 2.9 % (0-5); Hematocrit 39.9 % (40-54); Hemoglobin 13.5 g/dL (13.0-16.5); Lymphocyte % 23.1 % (19-41); Mean Corp Hgb Conc 33.8 g/dL (32-36); Mean Corpuscular Volume 91.7 fL (80-94); Mean Platelet Vol. 9.9 fl (6.2-12.0); Monocyte% 14.1 % (0-10); NRBC Flagged by Analyzer 0 % (0-5); Neutrophil # 4.55 X10^3/uL (2.7-7.7); Neutrophil % 58.3 % (47-70); Platelet Count 212 K/mm3 (150-450); RBC Distribution Width CV 16.2 % (11.6-14.6); RBC Distribution Width SD 54.9 fl (35.1-43.9); Red Blood Count 4.35 M/mm3 (4.6-6.2); White Blood Count 7.8 K/mm3 (4.4-11.0)
[2021-06-21 12:56] LABS: AST(SGOT) 14 U/L (15-37); Alanine Aminotransfer ALT/SGPT 24 U/L (16-61); Albumin, Serum 3.7 g/dL (3.2-5.0); Alkaline Phosphatase 90 U/L (45-117); Anion Gap 9 (5-15); BUN 56 mg/dL (7-18); BUN/Creat Ratio 20.7 RATIO (10-20); Calcium,Total 8.9 mg/dL (8.5-10.1); Chloride 97 mmol/L (98-107); Creatinine, Serum 2.71 mg/dL (0.70-1.30); EST Glomerular Filtration Rate 25 mL/min (>60); Est Glom Filt Rate - Afr Amer 30 mL/min (>60); Globulin 3.6 g/dL (2.2-4.2); Glucose 222 mg/dL (74-106); Potassium 3.5 mmol/L (3.5-5.1); Protein, Total 7.3 g/dL (6.4-8.2); Sodium Level 138 mmol/L (136-145); Thyroid Stim Hormone (TSH) 1.51 uIU/mL (0.358-3.74)
== END 2021-06-21 23:59 | disposition short-term general hospital (02) ==
LOC: POLAB3 11:47
PROVIDERS: PCP Family Medicine Geriatric Medicine; Visit Provider Family Medicine Geriatric Medicine
DX: E11.65 Type 2 diabetes mellitus with hyperglycemia (principal); E55.9 Vitamin D deficiency, unspecified; I10 Essential (primary) hypertension
CPT/HCPCS: 36415; 80053; 82306; 84443; 85025

== ENCOUNTER 2021-08-22 14:01 | Outpatient (CLI) | payer MEDICARE, OTHER, SELFPAY ==
[2020-02-18 06:00] VITALS: BMI 28.0
[2021-08-22 14:56] LABS: PTHIN 244.1 pg/mL (18.4-80.1)
[2021-08-22 14:57] LABS: BUN 52 mg/dL (7-18); BUN/Creat Ratio 21.1 RATIO (10-20); Calcium,Total 9.7 mg/dL (8.5-10.1); Chloride 99 mmol/L (98-107); Creatinine, Serum 2.47 mg/dL (0.70-1.30); EST Glomerular Filtration Rate 28 mL/min (>60); Est Glom Filt Rate - Afr Amer 33 mL/min (>60); Glucose 172 mg/dL (74-106); Phosphorus 2.7 mg/dL (2.5-4.9); Potassium 3.8 mmol/L (3.5-5.1); Sodium Level 137 mmol/L (136-145)
[2021-08-22 14:59] LABS: Vitamin D,25 Hydroxy 34.8 ng/mL
== END 2021-08-22 23:59 | disposition home or self-care (01) ==
PROVIDERS: PCP Family Medicine Geriatric Medicine; Visit Provider Internal Medicine Nephrology
DX: N18.32 Chronic kidney disease, stage 3b (principal)
CPT/HCPCS: 36415; 80069; 82306; 83970

== ENCOUNTER 2021-09-20 12:21 | Outpatient (CLI) | payer MEDICARE, OTHER, SELFPAY ==
[2020-02-18 06:00] VITALS: BMI 28.0
[2021-09-20 12:31] LABS: Absolute Lymphocyte Count 1.79 X10^3/uL (0.83-4.51); Absolute Neutrophil Count 4.7 X10^3/uL (2.0-7.7); Basophil# 0.07 X10^3/uL; Basophil% 0.9 % (0-1); Eosinophil# 0.26 X10^3/uL; Eosinophils% 3.3 % (0-5); Hematocrit 38.4 % (40-54); Hemoglobin 13.6 g/dL (13.0-16.5); Lymphocyte # 1.79 X10^3/ul (0.83-4.51); Lymphocyte % 22.5 % (19-41); Mean Corp Hgb Conc 35.4 g/dL (32-36); Mean Corpuscular Hgb 33.4 pg (27.0-32.0); Mean Corpuscular Volume 94.3 fL (80-94); Mean Platelet Vol. 10.4 fl (6.2-12.0); Monocyte# 1.07 X10^3/uL; Monocyte% 13.4 % (0-10); NRBC Flagged by Analyzer 0 % (0-5); Neutrophil # 4.68 X10^3/uL (2.7-7.7); Neutrophil % 58.6 % (47-70); Platelet Count 205 K/mm3 (150-450); RBC Distribution Width CV 13.1 % (11.6-14.6); Red Blood Count 4.07 M/mm3 (4.6-6.2)
[2021-09-20 12:56] LABS: Vitamin D,25 Hydroxy 32.4 ng/mL
[2021-09-20 13:04] LABS: ALB/GLOB Ratio 1.1 RATIO (0.9-2.4); AST(SGOT) 14 U/L (15-37); Alanine Aminotransfer ALT/SGPT 19 U/L (16-61); Albumin, Serum 3.8 g/dL (3.2-5.0); Alkaline Phosphatase 66 U/L (45-117); Anion Gap 8 (5-15); BUN 67 mg/dL (7-18); BUN/Creat Ratio 23.1 RATIO (10-20); Calcium,Total 9.1 mg/dL (8.5-10.1); Chloride 98 mmol/L (98-107); EST Glomerular Filtration Rate 23 mL/min (>60); Est Glom Filt Rate - Afr Amer 28 mL/min (>60); Globulin 3.4 g/dL (2.2-4.2); Glucose 206 mg/dL (74-106); PSA,Total - Annual Screen 1.57 ng/mL (0.00-4.00); Potassium 3.1 mmol/L (3.5-5.1); Protein, Total 7.2 g/dL (6.4-8.2); Sodium Level 137 mmol/L (136-145)
== END 2021-09-20 23:59 | disposition home or self-care (01) ==
LOC: POLAB3 12:22
PROVIDERS: PCP Family Medicine Geriatric Medicine; Visit Provider Family Medicine Geriatric Medicine
DX: E11.65 Type 2 diabetes mellitus with hyperglycemia (principal); E55.9 Vitamin D deficiency, unspecified; I10 Essential (primary) hypertension; Z12.5 Encounter for screening for malignant neoplasm of prostate
CPT/HCPCS: 36415; 80053; 82306; 84153; 84443; 85025; G0103

== ENCOUNTER 2021-09-25 15:04 | Outpatient (CLI) | payer MEDICARE, OTHER, SELFPAY ==
[2020-02-18 06:00] VITALS: BMI 28.0
[2021-09-25 17:32] LABS: Anion Gap 4 (5-15); BUN 65 mg/dL (7-18); BUN/Creat Ratio 22.7 RATIO (10-20); Calcium,Total 9.2 mg/dL (8.5-10.1); Chloride 100 mmol/L (98-107); Creatinine, Serum 2.86 mg/dL (0.70-1.30); EST Glomerular Filtration Rate 23 mL/min (>60); Est Glom Filt Rate - Afr Amer 28 mL/min (>60); Glucose 164 mg/dL (74-106); Potassium 3.9 mmol/L (3.5-5.1); Sodium Level 136 mmol/L (136-145)
== END 2021-09-25 23:59 | disposition home or self-care (01) ==
LOC: POLAB3 15:06
PROVIDERS: PCP Family Medicine Geriatric Medicine; Visit Provider Family Medicine Geriatric Medicine
DX: N17.9 Acute kidney failure, unspecified (principal)
CPT/HCPCS: 36415; 80048

== ENCOUNTER → 2021-10-20 | Outpatient (CLI) | payer MEDICARE, OTHER, SELFPAY ==
[2020-02-18 06:00] VITALS: BMI 28.0
[2021-10-20 17:23] LABS: Albumin, Serum 4.1 g/dL (3.2-5.0); BUN 78 mg/dL (7-18); BUN/Creat Ratio 23.9 RATIO (10-20); Calcium,Total 9.3 mg/dL (8.5-10.1); Chloride 100 mmol/L (98-107); Creatinine, Serum 3.27 mg/dL (0.70-1.30); EST Glomerular Filtration Rate 20 mL/min (>60); Est Glom Filt Rate - Afr Amer 24 mL/min (>60); Glucose 153 mg/dL (74-106); Phosphorus 3.5 mg/dL (2.5-4.9); Potassium 3.5 mmol/L (3.5-5.1); Sodium Level 136 mmol/L (136-145)
== END | disposition home or self-care (01) ==
LOC: LAB 15:47
PROVIDERS: PCP Family Medicine Geriatric Medicine; Referring Provider Internal Medicine Nephrology; Visit Provider Internal Medicine Nephrology
DX: N17.9 Acute kidney failure, unspecified (principal)
CPT/HCPCS: 36415; 80069

== ENCOUNTER → 2021-11-21 | Outpatient (CLI) | payer MEDICARE, OTHER, SELFPAY ==
[2020-02-18 06:00] VITALS: BMI 28.0
--- NOTE | 2021-11-21 12:43 | ECHOCS_ITS ---
Reason For Study: CHF Procedure This was a 2D Doppler, Color Flow transthoracic echocardiogram. The study was technically difficult. Contrast injection was performed. Exam performed in department. Left Ventricle Severely dilated left ventricle. Severe segmental systolic dysfunction (see wall motion). The estimated ejection fraction is 20 %. Anterio-Basal: Hypokinetic. Lateral-Basal: Hypokinetic. Posterior-Basal: Hypokinetic. Infero-Basal: Hypokinetic. Basal inferoseptal: Hypokinetic. Basal anteroseptal: Hypokinetic. Mid-Anterior : Hypokinetic. Mid-Lateral : Hypokinetic. Mid-Posterior: Akinetic. Mid-Inferior: Akinetic. Mid-inferoseptal : Akinetic. Mid-anteroseptal : Hypokinetic. [place] : Akinetic. Right Ventricle Normal RV size. ICD or pacer leads identified within the right ventricle. Normal systolic function. Atria The left atrium is moderately enlarged. The right atrium is mildly enlarged. ICD or pacer leads identified within the right atrium. No doppler evidence for ASD. Mitral Valve There is no mitral annular calcification. Mild papillary muscle dysfunction of the mitral valve. Moderately severe (3+) eccentric mitral valve insufficiency. Tricuspid Valve Normal tricuspid valve. Trivial tricuspid valve insufficiency. Right ventricular systolic pressure estimated to be 24 mmHg. Aortic Valve Trisinus/trileaflet aortic valve. Normal aortic valve. Trivial aortic valve insufficiency. Pulmonic Valve The pulmonic valve is not well visualized. Trivial pulmonic valve insufficiency. Great Vessels Normal sized aortic root. Pericardium/Pleural No pericardial effusion. Medication 22 gauge I.V. with prn adaptor inserted into right arm. Diluted definity 9ml given slow IV push to enhance endocardial definition. MMode/2D Measurements & Calculations LVIDd: 7.0 cm IVSd: 1.1 cm Ao root diam: 3.8 cm LVIDs: 6.0 cm LVPWd: 1.3 cm LA dimension: 5.2 cm RVDd: 3.2 cm FS: 14.4 % LAV(MOD-bp): 66.2 ml LVAd ap4: 54.6 cm2 SV(MOD-sp4): 44.6 ml LAV(MOD-bp) Indexed: 32.1 ml/m2 LVLd ap4: 9.7 cm LAV(MOD-sp2): 62.2 ml EDV(MOD-sp4): 253.3 ml LAV(MOD-sp4): 66.6 ml EDV(sp4-el): 261.9 ml LVAs ap4: 49.2 cm2 LVLs ap4: 9.5 cm ESV(MOD-sp4): 208.7 ml ESV(sp4-el): 217.1 ml EF(MOD-sp4): 17.6 % EF(sp4-el): 17.1 % SV(sp4-el): 44.7 ml LA A4 area: 22.7 cm2 RA A4 area: 14.3 cm2 Time Measurements MV dec time: 0.26 sec Doppler Measurements & Calculations MV E max radha: 46.8 cm/sec Ao V2 max: 108.7 cm/sec LV V1 max: 70.9 cm/sec MV A max radha: 98.5 cm/sec Ao max P.7 mmHg LV V1 max P.0 mmHg MV E/A: 0.48 PA V2 max: 61.1 cm/sec TR max radha: 226.7 cm/sec TR max P.6 mmHg ECHO/Echo Complete W/ Contrast Interpretation Summary The study was technically difficult. Contrast injection was performed. Severely dilated left ventricle. Severe segmental systolic dysfunction (see wall motion). The estimated ejection fraction is 20 %. The left atrium is moderately enlarged. The right atrium is mildly enlarged. Mild papillary muscle dysfunction of the mitral valve. Moderately severe (3+) eccentric mitral valve insufficiency. Trivial tricuspid valve insufficiency. Trivial aortic valve insufficiency. Trivial pulmonic valve insufficiency. Right ventricular systolic pressure estimated to be 24 mmHg. Transmitral diastolic flow velocities suggest diastolic dysfunction (pseudonorm al pattern). ICD or pacer leads identified within the right atrium ICD or pacer leads identified within the right ventricle. Comment: 2D echocardiographic and contrast enhanced images obtained appear comp atible with a small left ventricular apical thrombus. Ordering Physician: Hernando Funez Referring Physician: Eleuterio Abreu Chi Performed By: Ruddy Francisco RCS
== END | disposition home or self-care (01) ==
LOC: CVS 12:42
PROVIDERS: PCP Family Medicine Geriatric Medicine; Referring Provider Nurse Practitioner Family; Visit Provider Nurse Practitioner Family
DX: I25.10 Atherosclerotic heart disease of native coronary artery without angina pectoris (principal); I25.5 Ischemic cardiomyopathy
CPT/HCPCS: 93306; Q9957; A4216; C8929

== ENCOUNTER → 2021-11-28 | Outpatient (CLI) | payer MEDICARE, OTHER, SELFPAY ==
[2020-02-18 06:00] VITALS: BMI 28.0
[2021-11-28 09:20] LABS: 24 Hour Urine Protein 170.2 mg/24HR (<150 MG/24HR); 24HR. UA Prot. Total Volume 2300 mL; Urine Protein (24 Hour) 7.4 mg/dL (<11.9)
[2021-11-28 09:24] LABS: Hematocrit 39.6 % (40-54); Hemoglobin 13.6 g/dL (13.0-16.5); Mean Corp Hgb Conc 34.3 g/dL (32-36); Mean Corpuscular Hgb 32.8 pg (27.0-32.0); Mean Corpuscular Volume 95.4 fL (80-94); Mean Platelet Vol. 10.2 fl (6.2-12.0); Platelet Count 192 K/mm3 (150-450); RBC Distribution Width CV 12.4 % (11.6-14.6); RBC Distribution Width SD 43.1 fl (35.1-43.9); Red Blood Count 4.15 M/mm3 (4.6-6.2)
[2021-11-28 09:40] LABS: PTHIN 310.6 pg/mL (18.4-80.1)
[2021-11-28 09:47] LABS: Creat.Clear Total Volume 2300 mL; Creatinine Clearance 31 ml/min (100-200); Creatinine Serum Creat 2.9 mg/dL (0.8-1.3); Creatinine Urine 56.2 mg/dL (NO RANGE EST.); EST Glomerular Filtration Rate 23 mL/min (>60); Est Glom Filt Rate - Afr Amer 28 mL/min (>60)
[2021-11-28 09:47] LABS: Albumin, Serum 3.9 g/dL (3.2-5.0); BUN 65 mg/dL (7-18); BUN/Creat Ratio 22.6 RATIO (10-20); Calcium,Total 9.1 mg/dL (8.5-10.1); Chloride 100 mmol/L (98-107); Creatinine, Serum 2.87 mg/dL (0.70-1.30); EST Glomerular Filtration Rate 23 mL/min (>60); Est Glom Filt Rate - Afr Amer 28 mL/min (>60); Glucose 127 mg/dL (74-106); Phosphorus 3.8 mg/dL (2.5-4.9); Potassium 3.3 mmol/L (3.5-5.1); Sodium Level 139 mmol/L (136-145)
[2021-11-28 09:51] LABS: Vitamin D,25 Hydroxy 27.4 ng/mL
== END | disposition home or self-care (01) ==
PROVIDERS: PCP Family Medicine Geriatric Medicine; Referring Provider Internal Medicine Nephrology; Visit Provider Internal Medicine Nephrology
DX: N18.4 Chronic kidney disease, stage 4 (severe) (principal); N25.81 Secondary hyperparathyroidism of renal origin
CPT/HCPCS: 36415; 80069; 81050; 82306; 82575; 83970; 84156; 85027

== ENCOUNTER 2021-11-30 14:29 | Outpatient (RCR) | payer MEDICARE, OTHER, SELFPAY ==
[2020-02-18 06:00] VITALS: BMI 28.0
[2021-11-24 10:58] LABS: International Normalized Ratio 1.1; Prothrombin Time (Protime)PT. 14.1 SECONDS (11.7-14.9)
[2021-11-30 15:33] LABS: International Normalized Ratio 1.9; Prothrombin Time (Protime)PT. 21.6 SECONDS (11.7-14.9)
== END 2021-11-30 23:59 | disposition home or self-care (01) ==
LOC: LAB 14:29
PROVIDERS: PCP Family Medicine Geriatric Medicine; Referring Provider Internal Medicine Cardiovascular Disease; Visit Provider Internal Medicine Cardiovascular Disease
DX: I51.3 Intracardiac thrombosis, not elsewhere classified (principal); Z79.01 Long term (current) use of anticoagulants
CPT/HCPCS: 36415; 85610

== ENCOUNTER 2021-12-14 06:11 | Day surgery (SDC) | payer MEDICARE, OTHER, SELFPAY ==
[2020-02-18 06:00] VITALS: BMI 28.0
--- NOTE | 2021-12-14 | GASB_PTH ---
PATIENT: LAUREL DARLING LOC: EN U#:[id number] AGE/SX: 71/M ROOM: RE12/14/[address]: Dr. Rubin Joy DO : 1950 BED: DIS: 12/14/2021 SPEC #: [id number] RECD: 12/14/21 11:06 STATUS: CHAR BRENDON #: [id number] VILMA: 12/14/21 00:[address]: Rubin Joy DEPT: SURGICAL PATHOLOGY RECD BY: Chris Cortez ENTERED: 12/14/21 11:07 SP TYPE: Gastric Bx OTHR DR: Dr. Eleuterio Abreu MD Tissues: A - Gastric mucous membrane B - Duodenum, NOS C - Esophageal mucous membrane D - SPLENIC FLEXURE E - SPLENIC FLEXURE F - Sigmoid colon biopsy Procedures: Special Stain Group II Surgery Specimen Level IV Alcian Blue/PAS (control) HEADER OPERATION: Colonoscopy, EGD (MAC), biopsies PRE-OP DIAGNOSIS: Abdominal discomfort TISSUE SUBMITTED: A ? Gastric ulcer biopsy, B ? Duodenum biopsy, C ? Distal esophagus biopsy, D ? Splenic flexure polyp biopsy, E - Splenic flexure ulcer biopsy, F ? Sigmoid colitis biopsy MICROSCOPIC DIAGNOSIS A. Gastric ulcer, biopsy: Chronic inflammation with focal denudation of superficial mucosa. See comment. B. Duodenum, biopsy: Focal gastric metaplasia. C. Distal esophagus, biopsy: Gastroesophageal junctional mucosa with mild chronic inflammation. 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 No evidence of dysplasia. Focal hyperplastic gastric epithelium. See comment. D. Colonic polyp at hepatic flexure, biopsy: Fragments of tubular adenoma. E. Colonic ulcer at splenic flexure, biopsy: Fragments of tubular adenoma. See comment. F. Sigmoid colon, biopsy: No pathologic change. AM:atul 12/15/2021 COMMENT A. The results of immunohistochemistry for Helicobacter pylori will be reported separately ([id number]). C. Immunohistochemistry ([id number]) for P53 and Ki-67 will be performed and results will be reported separately. Alcian blue/PAS stain with matched control supports the above diagnosis. E. A distinct ulcer is not identified. Clinical correlation is suggested. MICROSCOPIC DESCRIPTION Slides are reviewed. GROSS DESCRIPTION A - Received in fixative is one container labeled with the patient's name and designated gastric ulcer biopsy. The specimen consists of two irregular fragments of light lima soft tissue that in aggregate measure 0.6 x 0.5 x 0.1 cm. The specimen is totally submitted in one cassette. B - Received in fixative is one container labeled with the patient's name and designated duodenum biopsy. The specimen consists of two irregular fragments of light lima soft tissue that in aggregate measure 0.6 x 0.2 x 0.1 cm. The specimen is totally submitted in one cassette. C - Received in fixative is one container labeled with the patient's name and designated distal esophagus biopsy. The specimen consists of multiple irregular fragments of light lima soft tissue that in aggregate measure 0.8 x 0.5 x 0.1 cm. The specimen is totally submitted in one cassette. D - Received in fixative is one container labeled with the patient's name and designated splenic flexure polyp biopsy. The specimen consists of multiple irregular fragments of light lima soft tissue that in aggregate measure 1 x 0.3 x 0.1 cm. The specimen is totally submitted in one cassette. E - Received in fixative is one container labeled with the patient's name and designated splenic flexure ulcer biopsy. The specimen consists of multiple irregular fragments of light lima soft tissue that in aggregate measure 1 x 0.3 x 0.1 cm. The specimen is totally submitted in one cassette. F - Received in fixative is one container labeled with the patient's name and designated sigmoid colitis biopsy. The specimen consists of one irregular fragment of light lima soft tissue that measures 0.6 x 0.3 x 0.1 cm. The specimen is totally submitted in one cassette. / SJ:rg 12/14/2021 TC: CPT: 59863 x6, 24788
[2021-12-14 06:49] VITALS: BP 113/76; PULSE 58; RESP 18; TEMP 35.8; O2SAT 99; BMI 25.2
[2021-12-14] MEDS: Lactated Ringers 1,000 ML 15 ML IV (07:09)
--- NOTE | 2021-12-14 07:20 | PCM.HP.BLA ---
History and Physical Date of Admission: 12/14/21 AMBROSIO DARLING, is a 71 M who presents to the office today for?Initial consult. Ambrosio established with this clinic 11.30.21 with referral from PCP for a colonoscopy. Reports bloody stools historically many years prior. Taking coumadin for cardiac issues/pacemaker. Hemoglobin 11.28. 13.6. Reports some LUQ discomfort in the morning that feels gassy and dissipates by the evening times. Gas-X is helpful when he takes it. Denies any current GERD, reflux, bloody stool. PMH includes cardiac issues with placement of pacemaker, established with [facility]; CKD stage 3. Exam Const General: cooperative and comfortable Nutritional Appearance: average body habitus and well nourished HENMT Head: normal to inspection Ears: hearing grossly normal bilaterally Nose: external nose normal Face and sinus: normal facial exam Mouth: oral mucosae normal Throat: posterior oropharynx normal Eyes General: appearance normal, both eyes and all related structures Neck Neck: normal visual inspection Chest Chest palpation & inspection: normal inspection of the chest and normal palpation of entire chest wall Resp Effort & Inspection: normal respiratory effort Auscultation: Bilateral: Clear to Auscultation Cardio Palpation: normal PMI Rate: regular rate Rhythm: regular rhythm GI Inspection: normal to inspection Auscultation: normal bowel sounds Percussion: normal to percussion Palpation: no hepatosplenomegaly Skin General: no rashes or lesions noted Neuro General: patient alert Extrem General: normal to inspection Psych Affect: normal affect Quality Reporting Tobacco Screening ([facility] 138) Smoking Status: Current every day smoker Assessment and Plan Assessment and Plan (1) Abdominal discomfort: ?Status:?Acute ?Plan: The differential diagnosis for his abdominal discomfort would include medication induced gastritis or peptic ulcer disease secondary to his recent administration of warfarin therapy for anterior cardiac thrombus.? He is also on antiplatelet therapy and has a history of CAD and PAD.? He will undergo an evaluation of his upper GI tract for intra-abdominal pathology present. (2) Screening for colon cancer: ?Status:?Acute ?Plan: He will undergo evaluation of the lower GI tract for screening for colon cancer.? He was explained alternatives, risk, benefits including outstanding bleeding, infection, sepsis, perforation, need for emergent surgery .? He will have an ASA of 3. And I have re-examined the patient. There are no clinical changes since date of exam.
[2021-12-14 07:27] LABS: Bedside Glucose 132 mg/dL (74-106)
--- NOTE | 2021-12-14 07:30 | IMM_PTH ---
PATIENT: LAUREL DARLING LOC: [facility] U#:[id number] AGE/SX: 71/M ROOM: RE12/14/[address]: Dr. Rubin Joy DO : 1950 BED: DIS: 12/14/2021 SPEC #: [id number] RECD: 12/14/21 13:36 STATUS: CHAR [place]ine #: [id number] VILMA: 12/14/21 07:[address]: Rubin Joy DEPT: IMMUNOHISTOCHEMISTRY RECD BY: Etta Lafleur ENTERED: 12/14/21 13:37 SP TYPE: IMMUNO OTHR DR: Dr. Eleuterio Abreu MD Tissues: A - Stomach, NOS C - Esophageal mucous membrane Procedures: H Pylori (initial) P53 (initial) KI-67 (add) PHYSICIAN & INSTITUTION [place] [id number] SPECIMEN INFORMATION: Tissue Source: A ? Gastric ulcer, C ? Distal esophagus Clinical Info: Abdominal discomfort Specimen Number: [id number] A & C CPT code: 45880 x2, 97034 METHODOLOGY: Deparaffinized sections of prefer/formalin-fixed tissue or PAP/DQ stained slides are incubated with monoclonal/polyclonal antibodies/oligonucleotide probes. Localization is made via biotin free immunoperoxidase method. Appropriate controls are performed and reacted as expected. Results on target cell population are indicated in the following table: RESULTS: ANTIBODY / CLONE RESULT Block A H Pylori (polyclonal) negative Block C P53 (DO-7) negative Ki-67 (30-9) positive, low These tests were developed and their performance characteristics determined by [facility]. They may not have been cleared or approved by the U.S. Food and Drug Administration. The FDA has determined that such clearance or approval is not necessary. The above immunohistochemical/dualISH markers are ordered and reviewed by the Pathologist. INTERPRETATION: A. Gastric ulcer, biopsy: Negative for Helicobacter pylori organisms. C. Distal esophagus, biopsy: No evidence of dysplasia. AM:atul 12/18/2021
[2021-12-14 07:57] LABS: INR Fingerstick 2.4; Prothrombin Time Fingerstick 27.5 SEC (11.7-14.9)
[2021-12-14 08:10] VITALS: BP 113/76; BP 96/56; PULSE 60; RESP 6; TEMP 36.1; O2SAT 100
--- NOTE | 2021-12-14 08:14 | OP.EGD_ITS ---
Patient Name: Ambrosio Stout Procedure Date: 12/14/2021 7:18 AM Date of : 1950 Age: 71 Procedure: Upper GI endoscopy Indications: Heartburn Providers: Rubin Joy DO Referring MD: Rubin Joy DO Medicines: Monitored Anesthesia Care Patient Profile: This is a 71 year old male. Refer to note in patient chart for documentation of history and physical. Patient has symptoms of acute epigastric abdominal pain. Complications: No immediate complications. Procedure: Pre-Anesthesia Assessment: - Prior to the procedure, a History and Physical was performed, and patient medications and allergies were reviewed. The patient is competent. The risks and benefits of the procedure and the sedation options and risks were discussed with the patient. All questions were answered and informed consent was obtained. Patient identification and proposed procedure were verified by the physician in the pre-procedure area. Mental Status Examination: alert and oriented. Airway Examination: normal oropharyngeal airway and neck mobility. Respiratory Examination: clear to auscultation. CV Examination: normal. Prophylactic Antibiotics: The patient does not require prophylactic antibiotics. Prior Anticoagulants: The patient has taken no previous anticoagulant or antiplatelet agents. ASA Grade Assessment: II - A patient with mild systemic disease. After reviewing the risks and benefits, the patient was deemed in satisfactory condition to undergo the procedure. The anesthesia plan was to use moderate sedation / analgesia (conscious sedation). Immediately prior to administration of medications, the patient was re-assessed for adequacy to receive sedatives. The heart rate, respiratory rate, oxygen saturations, blood pressure, adequacy of pulmonary ventilation, and response to care were monitored throughout the procedure. The physical status of the patient was re-assessed after the procedure. After obtaining informed consent, the endoscope was passed under direct vision. Throughout the procedure, the patient's blood pressure, pulse, and oxygen saturations were monitored continuously. The colonoscope was introduced through the mouth, and advanced to the second part of duodenum. The upper GI endoscopy was accomplished without difficulty. The patient tolerated the procedure well. Scope In: 7:37:07 AM Scope Out: 7:42:58 AM Total Procedure Duration Time 0 hours 5 minutes 51 seconds Findings: There were esophageal mucosal changes consistent with long-segment Zheng's esophagus present in the lower third of the esophagus. The maximum longitudinal extent of these mucosal changes was 4 cm in length. Mucosa was biopsied with a cold forceps for histology in a targeted manner at intervals of 1 cm in the lower third of the esophagus. One specimen bottle was sent to pathology. Verification of patient identification for the specimen was done. Estimated blood loss was minimal. A medium-sized hiatal hernia was present. Few non-bleeding cratered gastric ulcers with pigmented material were found in the stomach. The largest lesion was 6 mm in largest dimension. This was biopsied with a cold forceps for histology. Verification of patient identification for the specimen was done. Estimated blood loss was minimal. Localized moderate inflammation characterized by congestion (edema) was found in the duodenal bulb. Biopsies were taken with a cold forceps for histology. Verification of patient identification for the specimen was done. Cells for cytology were obtained. Verification of patient identification for the specimen was done. Estimated blood loss was minimal. 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 Biopsied. - Medium-sized hiatal hernia. - Non-bleeding gastric ulcers with pigmented material. Biopsied. - Duodenitis. Biopsied. Cells for cytology obtained. Recommendation: - Written discharge instructions were provided to the patient. - The signs and symptoms of potential delayed complications were discussed with the patient. - Patient has a contact number available for emergencies. - Return to normal activities tomorrow. - Resume previous diet. - Continue present medications. - Await pathology results. - Pantoprazole 40mg twice daily x 8 weeks - Repeat upper endoscopy in 1 year for surveillance based on pathology results. Procedure Code(s): --- Professional --- 02469, Esophagogastroduodenoscopy, flexible, transoral; with biopsy, single or multiple CPT copyright 2017 [employer]. All rights reserved. The codes documented in this report are preliminary and upon mass communications professor review may be revised to meet current compliance requirements. Rubin Joy DO 12/14/2021 8:13:56 AM This report has been signed electronically. Number of Addenda: 1 Note Initiated On: 12/14/2021 7:18 AM Addendum Number: 1 Addendum Date: 03/14/2022 6:28:28 AM MAC was used as sedation for this procedure. Rubin Joy DO 03/14/2022 6:28:32 AM This report has been signed electronically.
[2021-12-14 08:15] VITALS: BP 104/71; BP 113/76; PULSE 60; RESP 16; O2SAT 100
--- NOTE | 2021-12-14 08:15 | OP.CCLET_ITS ---
03/14/2022 Eleuterio Abreu MD [address] [place] [address] Re : Upper GI endoscopy procedure for Ambrosio Stout Dear Dr. Abreu This procedure was performed on December. 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 Biopsied. - Medium-sized hiatal hernia. - Non-bleeding gastric ulcers with pigmented material. Biopsied. - Duodenitis. Biopsied. Cells for cytology obtained. Recommendations : - Written discharge instructions were provided to the patient. - The signs and symptoms of potential delayed complications were discussed with the patient. - Patient has a contact number available for emergencies. - Return to normal activities tomorrow. - Resume previous diet. - Continue present medications. - Await pathology results. - Pantoprazole 40mg twice daily x 8 weeks - Repeat upper endoscopy in 1 year for surveillance based on pathology results. My findings are described in the full procedure note, which is enclosed. If I can be of further assistance, please feel free to contact me at . Sincerely, Rubin Joy DO 12/14/2021 8:13:56 AM This report has been signed electronically.
[2021-12-14 08:20] VITALS: BP 113/76; BP 115/71; PULSE 60; RESP 16; O2SAT 100
[2021-12-14 08:25] VITALS: BP 113/76; BP 116/76; PULSE 60; RESP 16; TEMP 36.3; O2SAT 99
--- NOTE | 2021-12-14 08:44 | OP.COLON_ITS ---
Patient Name: Ambrosio Stout Procedure Date: 12/14/2021 7:43 AM Date of : 1950 Age: 71 Procedure: Colonoscopy Indications: Evaluation of unexplained GI bleeding Providers: Rubin Joy DO Referring MD: Rubin Joy DO Medicines: Monitored Anesthesia Care Patient Profile: This is a 71 year old male. Refer to note in patient chart for documentation of history and physical. Patient has symptoms of acute epigastric abdominal pain. Last Colonoscopy: date unknown. Unable to locate last colonoscopy report. Complications: No immediate complications. Procedure: Pre-Anesthesia Assessment: - Prior to the procedure, a History and Physical was performed, and patient medications and allergies were reviewed. The patient is competent. The risks and benefits of the procedure and the sedation options and risks were discussed with the patient. All questions were answered and informed consent was obtained. Patient identification and proposed procedure were verified by the physician in the pre-procedure area. Mental Status Examination: alert and oriented. Airway Examination: normal oropharyngeal airway and neck mobility. Respiratory Examination: clear to auscultation. CV Examination: normal. Prophylactic Antibiotics: The patient does not require prophylactic antibiotics. Prior Anticoagulants: The patient has taken no previous anticoagulant or antiplatelet agents. ASA Grade Assessment: II - A patient with mild systemic disease. After reviewing the risks and benefits, the patient was deemed in satisfactory condition to undergo the procedure. The anesthesia plan was to use moderate sedation / analgesia (conscious sedation). Immediately prior to administration of medications, the patient was re-assessed for adequacy to receive sedatives. The heart rate, respiratory rate, oxygen saturations, blood pressure, adequacy of pulmonary ventilation, and response to care were monitored throughout the procedure. The physical status of the patient was re-assessed after the procedure. After I obtained informed consent, the scope was passed under direct vision. Throughout the procedure, the patient's blood pressure, pulse, and oxygen saturations were monitored continuously. The colonoscope was introduced through the anus and advanced to the terminal ileum. The colonoscopy was performed without difficulty. The patient tolerated the procedure well. The quality of the bowel preparation was good. Scope In: 7:45:01 AM Scope Withdrawal Time 0 hours 16 minutes 3 seconds Scope Out: 8:04:50 AM Total Procedure Duration Time 0 hours 19 minutes 49 seconds Findings: Hemorrhoids were found on perianal exam. A 5 mm polyp was found in the splenic flexure. The polyp was sessile. The polyp was removed with a cold snare. Resection and retrieval were complete. Verification of patient identification for the specimen was done. Estimated blood loss was minimal. A single (solitary) nine mm ulcer was found at the splenic flexure. No bleeding was present. Biopsies were taken with a cold forceps for histology. Verification of patient identification for the specimen was done. Area was tattooed with an injection of 0.9 mL of Shaniqua ink. A few small and large-mouthed diverticula were found in the recto-sigmoid colon, sigmoid colon and descending colon. An area of moderately congested mucosa was found in the sigmoid colon. Biopsies were taken with a cold forceps for histology. Verification of patient identification for the specimen was done. Estimated blood loss was minimal. Impression: - Hemorrhoids found on perianal exam. - One 5 mm polyp at the splenic flexure, removed with a cold snare. Resected and retrieved. - A single (solitary) ulcer at the splenic flexure. Biopsied. Tattooed. - Diverticulosis in the recto-sigmoid colon, in the sigmoid colon and in the descending colon. - Congested mucosa in the sigmoid colon. Biopsied. Recommendation: - Discharge patient to home. - Resume previous diet. - Continue present medications. - Await pathology results. - Repeat colonoscopy in 3 years for surveillance based on pathology results. - Return to GI office. Procedure Code(s): --- Professional --- 94364, Colonoscopy, flexible; with removal of tumor(s), polyp(s), or other lesion(s) by snare technique 58212, Colonoscopy, flexible; with directed submucosal injection(s), any substance 03780, 59, Colonoscopy, flexible; with biopsy, single or multiple CPT copyright 2017 [employer]. All rights reserved. The codes documented in this report are preliminary and upon machine heel sprayer review may be revised to meet current compliance requirements. Rubin Joy DO 12/14/2021 8:44:19 AM This report has been signed electronically. Number of Addenda: 1 Note Initiated On: 12/14/2021 7:43 AM Addendum Number: 1 Addendum Date: 03/14/2022 6:28:41 AM MAC was used as sedation for this procedure. Rubin Joy DO 03/14/2022 6:28:47 AM This report has been signed electronically.
--- NOTE | 2021-12-14 08:44 | OP.CCLET_ITS ---
03/14/2022 Eleuterio Abreu MD [address] [place] [address] Re : Colonoscopy procedure for Ambrosio Stout Dear Dr. Abreu This procedure was performed on December. My impressions and recommendations are as follows: Impressions : - Hemorrhoids found on perianal exam. - One 5 mm polyp at the splenic flexure, removed with a cold snare. Resected and retrieved. - A single (solitary) ulcer at the splenic flexure. Biopsied. Tattooed. - Diverticulosis in the recto-sigmoid colon, in the sigmoid colon and in the descending colon. - Congested mucosa in the sigmoid colon. Biopsied. Recommendations : - Discharge patient to home. - Resume previous diet. - Continue present medications. - Await pathology results. - Repeat colonoscopy in 3 years for surveillance based on pathology results. - Return to GI office. My findings are described in the full procedure note, which is enclosed. If I can be of further assistance, please feel free to contact me at . Sincerely, Rubin Joy, 12/14/2021 8:44:19 AM This report has been signed electronically.
[2021-12-14 09:29] VITALS: BP 113/76
== END 2021-12-14 09:35 | disposition home or self-care (01) ==
LOC: EN 06:12 → AC 06:13
PROVIDERS: PCP Family Medicine Geriatric Medicine; Referring Provider Family Medicine Geriatric Medicine; Visit Provider Internal Medicine Gastroenterology
PROC: 0DJD8ZZ Inspection of Lower Intestinal Tract, Via Natural or Artificial Opening Endoscopic (ICD-10-PCS; CPT 45378; principal; 2021-12-14 07:25)
DX: Z12.11 Encounter for screening for malignant neoplasm of colon (principal); I11.0 Hypertensive heart disease with heart failure; I50.22 Chronic systolic (congestive) heart failure; K63.89 Other specified diseases of intestine; I25.10 Atherosclerotic heart disease of native coronary artery without angina pectoris; K25.9 Gastric ulcer, unspecified as acute or chronic, without hemorrhage or perforation; K57.30 Diverticulosis of large intestine without perforation or abscess without bleeding; K44.9 Diaphragmatic hernia without obstruction or gangrene; K64.9 Unspecified hemorrhoids; K29.80 Duodenitis without bleeding; F17.200 Nicotine dependence, unspecified, uncomplicated; Z95.810 Presence of automatic (implantable) cardiac defibrillator; I25.5 Ischemic cardiomyopathy; I05.1 Rheumatic mitral insufficiency; Z95.5 Presence of coronary angioplasty implant and graft; Z79.01 Long term (current) use of anticoagulants; D12.3 Benign neoplasm of transverse colon
CPT/HCPCS: 45380; 45381; 45385; 43239; 36416; 82962; 85610; 88305; 88313; 88341; 88342; J7120; A4648; J2405

== ENCOUNTER → 2021-12-21 | Outpatient (CLI) | payer MEDICARE, OTHER, SELFPAY ==
[2020-02-18 06:00] VITALS: BMI 28.0
[2021-12-21 12:43] LABS: International Normalized Ratio 2.1; Prothrombin Time (Protime)PT. 22.8 SECONDS (11.7-14.9)
[2021-12-21 12:50] LABS: Absolute Lymphocyte Count 1.48 X10^3/uL (0.83-4.51); Basophil# 0.05 X10^3/uL; Basophil% 0.4 % (0-1); Eosinophil# 0.25 X10^3/uL; Eosinophils% 2.2 % (0-5); Hematocrit 38.8 % (40-54); Hemoglobin 13.1 g/dL (13.0-16.5); Lymphocyte # 1.48 X10^3/ul (0.83-4.51); Lymphocyte % 13.1 % (19-41); Mean Corp Hgb Conc 33.8 g/dL (32-36); Mean Corpuscular Hgb 31.8 pg (27.0-32.0); Mean Corpuscular Volume 94.2 fL (80-94); Mean Platelet Vol. 10.1 fl (6.2-12.0); Monocyte# 1.37 X10^3/uL; Monocyte% 12.2 % (0-10); NRBC Flagged by Analyzer 0 % (0-5); Neutrophil # 7.98 X10^3/uL (2.7-7.7); Neutrophil % 70.9 % (47-70); Platelet Count 247 K/mm3 (150-450); RBC Distribution Width CV 12.2 % (11.6-14.6); RBC Distribution Width SD 42.5 fl (35.1-43.9); Red Blood Count 4.12 M/mm3 (4.6-6.2); White Blood Count 11.3 K/mm3 (4.4-11.0)
[2021-12-21 13:12] LABS: ALB/GLOB Ratio 0.9 RATIO (0.9-2.4); AST(SGOT) 9 U/L (15-37); Alanine Aminotransfer ALT/SGPT 18 U/L (16-61); Albumin, Serum 3.5 g/dL (3.2-5.0); Alkaline Phosphatase 71 U/L (45-117); Anion Gap 6 (5-15); BUN 48 mg/dL (7-18); BUN/Creat Ratio 19.4 RATIO (10-20); Chloride 102 mmol/L (98-107); Creatinine, Serum 2.47 mg/dL (0.70-1.30); EST Glomerular Filtration Rate 28 mL/min (>60); Est Glom Filt Rate - Afr Amer 33 mL/min (>60); Globulin 3.8 g/dL (2.2-4.2); Glucose 165 mg/dL (74-106); Potassium 3.6 mmol/L (3.5-5.1); Protein, Total 7.3 g/dL (6.4-8.2); Sodium Level 137 mmol/L (136-145); Thyroid Stim Hormone (TSH) 0.93 uIU/mL (0.358-3.74); Vitamin D,25 Hydroxy 27.7 ng/mL
== END | disposition home or self-care (01) ==
PROVIDERS: PCP Family Medicine Geriatric Medicine; Visit Provider Family Medicine Geriatric Medicine
DX: I10 Essential (primary) hypertension (principal); E11.65 Type 2 diabetes mellitus with hyperglycemia; E55.9 Vitamin D deficiency, unspecified; I51.3 Intracardiac thrombosis, not elsewhere classified; Z79.01 Long term (current) use of anticoagulants
CPT/HCPCS: 36415; 80053; 82306; 84443; 85025; 85610

== ENCOUNTER 2021-12-28 15:09 | Outpatient (RCR) | payer MEDICARE, OTHER, SELFPAY ==
[2020-02-18 06:00] VITALS: BMI 28.0
[2021-12-08 14:10] LABS: International Normalized Ratio 3.4
[2021-12-28 17:40] LABS: International Normalized Ratio 3.1; Prothrombin Time (Protime)PT. 31.4 SECONDS (11.7-14.9)
== END 2022-01-07 01:53 | disposition home or self-care (01) ==
LOC: LAB 15:09
PROVIDERS: PCP Family Medicine Geriatric Medicine; Referring Provider Internal Medicine Cardiovascular Disease; Visit Provider Internal Medicine Cardiovascular Disease
DX: I51.3 Intracardiac thrombosis, not elsewhere classified (principal); Z79.01 Long term (current) use of anticoagulants
CPT/HCPCS: 36415; 85610

== ENCOUNTER 2022-02-06 14:02 | Outpatient (RCR) | payer MEDICARE, OTHER, SELFPAY ==
[2020-02-18 06:00] VITALS: BMI 28.0
[2022-01-15 15:44] LABS: Prothrombin Time (Protime)PT. 42.5 SECONDS (11.7-14.9)
[2022-01-15 15:48] LABS: International Normalized Ratio 4.5
[2022-01-19 15:15] LABS: International Normalized Ratio 3.6; Prothrombin Time (Protime)PT. 35.4 SECONDS (11.7-14.9)
[2022-02-06 16:13] LABS: International Normalized Ratio 1.9; Prothrombin Time (Protime)PT. 21.7 SECONDS (11.7-14.9)
== END 2022-02-06 18:00 | disposition home or self-care (01) ==
LOC: LAB 14:02
PROVIDERS: PCP Family Medicine Geriatric Medicine; Referring Provider Internal Medicine Cardiovascular Disease; Visit Provider Internal Medicine Cardiovascular Disease
DX: I51.3 Intracardiac thrombosis, not elsewhere classified (principal); Z79.01 Long term (current) use of anticoagulants
CPT/HCPCS: 36415; 85610

== ENCOUNTER 2022-03-08 10:40 | Outpatient (CLI) | payer MEDICARE, OTHER, SELFPAY ==
[2020-02-18 06:00] VITALS: BMI 28.0
--- NOTE | 2022-03-08 10:43 | ECHOD_ITS ---
Reason For Study: LV THROMBUS Procedure This was a 2D Doppler, Color Flow transthoracic echocardiogram. Contrast injection was performed. to evaluate for LV thrombus. Exam performed in department. Left Ventricle Severely dilated left ventricle. Apical false tendon noted. Severe segmental systolic dysfunction (see wall motion). The estimated ejection fraction is 25 %. Diastolic function is indeterminate. Anterio-Basal: Akinetic. Lateral-Basal: Akinetic. Posterior-Basal: Akinetic. Infero-Basal: Akinetic. Basal inferoseptal: Akinetic. Mid-Anterior : Hypokinetic. Mid-Lateral : Hypokinetic. Mid-Posterior: Akinetic. Mid-Inferior: Akinetic. Mid-inferoseptal : Severly Hypokinetic. Mid-anteroseptal : Hypokinetic. [place] : Akinetic. Right Ventricle Normal RV size. ICD or pacer leads identified within the right ventricle. Normal systolic function. Atria The left atrium is moderately enlarged. The right atrium is mildly enlarged. ICD or pacer leads identified within the right atrium. No doppler evidence for ASD. Mitral Valve Normal mitral valve. Mild papillary muscle dysfunction of the mitral valve. Moderate (2+) eccentric mitral valve insufficiency. Tricuspid Valve Normal tricuspid valve. Trivial tricuspid valve insufficiency. Unable to estimate RV systolic pressure due to insufficient tricuspid regurgitant envelope. Aortic Valve Trisinus/trileaflet aortic valve. Normal aortic valve. Trivial aortic valve insufficiency. Pulmonic Valve The pulmonic valve is not well visualized. Trivial pulmonic valve insufficiency. Great Vessels Borderline dilated aortic root. Pericardium/Pleural No pericardial effusion. Medication 22 gauge I.V. with prn adaptor inserted into right arm. Diluted definity 2.0ml given slow IV push to enhance endocardial definition. MMode/2D Measurements & Calculations LVIDd: 7.7 cm IVSd: 1.2 cm Ao root diam: 3.8 cm LVIDs: 6.6 cm LVPWd: 1.2 cm RVDd: 2.8 cm FS: 14.3 % LAV(MOD-bp): 79.6 ml LA A4 area: 22.5 cm2 LA dimension(2D): 5.1 cm LAV(MOD-bp) Indexed: 37.6 ml/m2 LAV(MOD-sp2): 77.0 ml LAV(MOD-sp4): 77.0 ml RA A4 area: 12.5 cm2 Time Measurements MV dec time: 0.18 sec Doppler Measurements & Calculations MV E max tom: 41.5 cm/sec Lat Peak E' Tom: 5.3 cm/sec Med Peak E' Tom: 3.0 cm/sec MV A max tom: 125.1 cm/sec E/E' lat: 7.8 E/E' med: 13.9 MV E/A: 0.33 MV dec slope: 348.0 cm/sec2 Ao V2 max: 123.8 cm/sec LV V1 max: 57.2 cm/sec Ao max P.1 mmHg LV V1 max P.3 mmHg Ao V2 mean: 88.4 cm/sec LV V1 mean P.67 mmHg Ao mean P.6 mmHg LV V1 mean: 38.2 cm/sec Ao V2 VTI: 25.7 cm LV V1 VTI: 14.0 cm MR max tom: 551.3 cm/sec PA V2 max: 75.4 cm/sec MR max P.9 mmHg MR mean tom: 420.8 cm/sec MR mean P.4 mmHg MR VTI: 215.5 cm ECHO/Echo Complete W/ Contrast Interpretation Summary Contrast injection was performed. Severely dilated left ventricle. Severe segmental systolic dysfunction (see wall motion). The estimated ejection fraction is 25 %. Apical false tendon noted. The left atrium is moderately enlarged. The right atrium is mildly enlarged. Mild papillary muscle dysfunction of the mitral valve. Moderate (2+) eccentric mitral valve insufficiency. Trivial tricuspid valve insufficiency. Trivial aortic valve insufficiency. Trivial pulmonic valve insufficiency. Borderline dilated aortic root Unable to estimate RV systolic pressure due to insufficient tricuspid regurgita nt envelope. Diastolic function is indeterminate. ICD or pacer leads identified within the right atrium ICD or pacer leads identified within the right ventricle. Plan: Based upon the 2D echocardiographic and contrast enhanced images obtained : The left ventricular apical thrombus is not appreciated at this time. Ordering Physician: Shirley Sanderson Referring Physician: Eleuterio Abreu Chi Performed By: Marilyn Weaver, RYAN, RVT
== END 2022-03-08 23:59 | disposition home or self-care (01) ==
PROVIDERS: PCP Family Medicine Geriatric Medicine; Referring Provider Nurse Practitioner Gerontology; Visit Provider Nurse Practitioner Gerontology
DX: I25.5 Ischemic cardiomyopathy (principal); N18.4 Chronic kidney disease, stage 4 (severe); N25.81 Secondary hyperparathyroidism of renal origin; I51.3 Intracardiac thrombosis, not elsewhere classified; Z79.01 Long term (current) use of anticoagulants
CPT/HCPCS: 36415; 85610; 93306; Q9957; A4216; C8929

== ENCOUNTER 2022-03-08 11:37 | Outpatient (RCR) | payer MEDICARE, OTHER, SELFPAY ==
[2020-02-18 06:00] VITALS: BMI 28.0
[2022-02-22 14:14] LABS: Hematocrit 39.8 % (40-54); Hemoglobin 13.5 g/dL (13.0-16.5); Mean Corp Hgb Conc 33.9 g/dL (32-36); Mean Corpuscular Hgb 31.8 pg (27.0-32.0); Mean Corpuscular Volume 93.6 fL (80-94); Mean Platelet Vol. 10.9 fl (6.2-12.0); Platelet Count 197 K/mm3 (150-450); RBC Distribution Width CV 14.2 % (11.6-14.6); RBC Distribution Width SD 48.6 fl (35.1-43.9); Red Blood Count 4.25 M/mm3 (4.6-6.2); White Blood Count 10.3 K/mm3 (4.4-11.0)
[2022-02-22 14:37] LABS: PTHIN 276.9 pg/mL (18.4-80.1)
[2022-02-22 14:38] LABS: International Normalized Ratio 1.7; Prothrombin Time (Protime)PT. 19.5 SECONDS (11.7-14.9)
[2022-02-22 14:57] LABS: Albumin, Serum 3.8 g/dL (3.2-5.0); BUN 47 mg/dL (7-18); BUN/Creat Ratio 17.4 RATIO (10-20); Calcium,Total 9.1 mg/dL (8.5-10.1); Chloride 104 mmol/L (98-107); EST Glomerular Filtration Rate 25 mL/min (>60); Est Glom Filt Rate - Afr Amer 30 mL/min (>60); Glucose 139 mg/dL (74-106); Phosphorus 2.9 mg/dL (2.5-4.9); Potassium 4.4 mmol/L (3.5-5.1); Sodium Level 141 mmol/L (136-145)
[2022-03-08 12:18] LABS: Prothrombin Time (Protime)PT. 22.1 SECONDS (11.7-14.9)
== END 2022-03-08 18:00 | disposition home or self-care (01) ==
LOC: LAB 11:37
PROVIDERS: PCP Family Medicine Geriatric Medicine; Referring Provider Internal Medicine Cardiovascular Disease; Visit Provider Internal Medicine Cardiovascular Disease
DX: I51.3 Intracardiac thrombosis, not elsewhere classified (principal); Z79.01 Long term (current) use of anticoagulants; N18.4 Chronic kidney disease, stage 4 (severe); N25.81 Secondary hyperparathyroidism of renal origin
CPT/HCPCS: 36415; 80069; 83970; 85027; 85610

== ENCOUNTER → 2022-03-27 | Outpatient (CLI) | payer MEDICARE, OTHER, SELFPAY ==
[2020-02-18 06:00] VITALS: BMI 28.0
[2022-03-27 18:10] LABS: Absolute Lymphocyte Count 1.64 X10^3/uL (0.83-4.51); Absolute Neutrophil Count 5.8 X10^3/uL (2.0-7.7); Basophil# 0.05 X10^3/uL; Basophil% 0.6 % (0-1); Eosinophil# 0.39 X10^3/uL; Eosinophils% 4.3 % (0-5); Hematocrit 44.1 % (40-54); Hemoglobin 14.3 g/dL (13.0-16.5); Lymphocyte # 1.64 X10^3/ul (0.83-4.51); Lymphocyte % 18.1 % (19-41); Mean Corp Hgb Conc 32.4 g/dL (32-36); Mean Corpuscular Hgb 30.6 pg (27.0-32.0); Mean Corpuscular Volume 94.4 fL (80-94); Mean Platelet Vol. 11.2 fl (6.2-12.0); Monocyte# 1.11 X10^3/uL; Monocyte% 12.3 % (0-10); NRBC Flagged by Analyzer 0 % (0-5); Neutrophil # 5.79 X10^3/uL (2.7-7.7); Neutrophil % 63.8 % (47-70); Platelet Count 211 K/mm3 (150-450); RBC Distribution Width SD 48.5 fl (35.1-43.9); Red Blood Count 4.67 M/mm3 (4.6-6.2); White Blood Count 9.1 K/mm3 (4.4-11.0)
[2022-03-27 18:35] LABS: Vitamin D,25 Hydroxy 25.5 ng/mL
[2022-03-27 18:59] LABS: ALB/GLOB Ratio 1.1 RATIO (0.9-2.4); AST(SGOT) 12 U/L (15-37); Alanine Aminotransfer ALT/SGPT 22 U/L (16-61); Albumin, Serum 4.1 g/dL (3.2-5.0); Alkaline Phosphatase 78 U/L (45-117); Anion Gap 8 (5-15); BUN 44 mg/dL (7-18); BUN/Creat Ratio 16.4 RATIO (10-20); Calcium,Total 9.2 mg/dL (8.5-10.1); Chloride 101 mmol/L (98-107); Creatinine, Serum 2.68 mg/dL (0.70-1.30); EST Glomerular Filtration Rate 25 mL/min (>60); Est Glom Filt Rate - Afr Amer 30 mL/min (>60); Globulin 3.7 g/dL (2.2-4.2); Glucose 133 mg/dL (74-106); Potassium 3.8 mmol/L (3.5-5.1); Protein, Total 7.8 g/dL (6.4-8.2); Sodium Level 137 mmol/L (136-145)
== END | disposition home or self-care (01) ==
LOC: POLAB3 13:38
PROVIDERS: PCP Family Medicine Geriatric Medicine; Visit Provider Family Medicine Geriatric Medicine
DX: I10 Essential (primary) hypertension (principal); E11.65 Type 2 diabetes mellitus with hyperglycemia; E55.9 Vitamin D deficiency, unspecified
CPT/HCPCS: 36415; 80053; 82306; 84443; 85025

== ENCOUNTER → 2022-04-18 | Outpatient (CLI) | payer MEDICARE, OTHER, SELFPAY ==
[2020-02-18 06:00] VITALS: BMI 28.0
--- NOTE | 2022-04-18 08:59 | AAVD_ITS ---
Reason For Study: AAA Aorta Measurements Aorta Doppler Measurements Proximal aorta measures4.37 x 4.27cm. in cross- Peak systolic flow velocities within the proximal sectional axis. aorta measure 79.6 cm/sec. Proximal aorta measures4.24cm. in longitudinal Peak systolic flow velocities within the mid aorta axis. measure 59.6 cm/sec. Mid aorta measures4.56 x 4.54cm. in cross- Peak systolic flow velocities within the distal sectional axis. aorta measure 61.4 cm/sec. Mid aorta measures4.51cm. in longitudinal axis. Distal aorta measures2.51 x 2.54cm. in cross- sectional axis. Distal aorta measures2.42cm. in longitudinal axis. Left Iliac Artery Left iliac artery measures 1.91 x 1.87 cm. in the cross-sectional axis. Left iliac artery measures 1.89 cm. in the longitudinal axis. Peak systolic velocity in the left iliac artery measures 68.7 cm/sec. Right Iliac Artery Right iliac artery measures 1.83 x 1.88 cm. in the cross-sectional axis. Right iliac artery measures 1.83 cm. in the longitudinal axis. Peak systolic velocity in the right iliac artery measures 54.2 cm/sec. Procedure Aorta IVC Iliac vasculature or bypass grafts [id number]. Exam performed in department. VL/Abd Aortic/IVC Duplex scan Interpretation Summary Aorta patent, 4.56 cm aneurysm present Right iliac artery patent, 1.91 cm aneurysm present Left iliac artery patent, 1.88 cm aneurysm present Ordering Physician: Eleuterio Abreu Chi Referring Physician: Eleuterio Abreu Chi Performed By: Anette Callahan RVT
== END | disposition home or self-care (01) ==
LOC: CVS 08:57
PROVIDERS: PCP Family Medicine Geriatric Medicine; Referring Provider Family Medicine Geriatric Medicine; Visit Provider Family Medicine Geriatric Medicine
DX: I71.40 Abdominal aortic aneurysm, without rupture, unspecified (principal); I72.3 Aneurysm of iliac artery
CPT/HCPCS: 93978

== ENCOUNTER → 2022-05-14 | Outpatient (CLI) | payer MEDICARE, OTHER, SELFPAY ==
[2020-02-18 06:00] VITALS: BMI 28.0
[2022-05-14 12:35] LABS: Hematocrit 41.1 % (40-54); Hemoglobin 14.1 g/dL (13.0-16.5); Mean Corp Hgb Conc 34.3 g/dL (32-36); Mean Corpuscular Hgb 32.3 pg (27.0-32.0); Mean Corpuscular Volume 94.3 fL (80-94); Mean Platelet Vol. 11.3 fl (6.2-12.0); Platelet Count 164 K/mm3 (150-450); RBC Distribution Width CV 13.8 % (11.6-14.6); RBC Distribution Width SD 47.7 fl (35.1-43.9); Red Blood Count 4.36 M/mm3 (4.6-6.2); White Blood Count 10.7 K/mm3 (4.4-11.0)
[2022-05-14 13:03] LABS: Albumin, Serum 3.8 g/dL (3.2-5.0); BUN 34 mg/dL (7-18); BUN/Creat Ratio 13.6 RATIO (10-20); Calcium,Total 9.2 mg/dL (8.5-10.1); Chloride 103 mmol/L (98-107); EST Glomerular Filtration Rate 27 mL/min (>60); Est Glom Filt Rate - Afr Amer 33 mL/min (>60); Glucose 169 mg/dL (74-106); Phosphorus 1.9 mg/dL (2.5-4.9); Potassium 3.9 mmol/L (3.5-5.1); Sodium Level 140 mmol/L (136-145)
[2022-05-14 13:04] LABS: PTHIN 230.8 pg/mL (18.4-80.1)
[2022-05-14 13:05] LABS: Vitamin D,25 Hydroxy 26.6 ng/mL
== END | disposition home or self-care (01) ==
LOC: LAB 11:40
PROVIDERS: PCP Family Medicine Geriatric Medicine; Referring Provider Internal Medicine Nephrology; Visit Provider Internal Medicine Nephrology
DX: N18.4 Chronic kidney disease, stage 4 (severe) (principal); N25.81 Secondary hyperparathyroidism of renal origin
CPT/HCPCS: 36415; 80069; 82306; 83970; 85027

== ENCOUNTER → 2022-06-26 | Outpatient (CLI) | payer MEDICARE, OTHER, SELFPAY ==
[2020-02-18 06:00] VITALS: BMI 28.0
[2022-06-26 13:32] LABS: Absolute Lymphocyte Count 1.53 X10^3/uL (0.83-4.51); Absolute Neutrophil Count 5.3 X10^3/uL (2.0-7.7); Basophil# 0.04 X10^3/uL; Basophil% 0.5 % (0-1); Eosinophil# 0.25 X10^3/uL; Eosinophils% 3.1 % (0-5); Hematocrit 41.4 % (40-54); Hemoglobin 14.2 g/dL (13.0-16.5); Lymphocyte # 1.53 X10^3/ul (0.83-4.51); Lymphocyte % 18.8 % (19-41); Mean Corp Hgb Conc 34.3 g/dL (32-36); Mean Corpuscular Hgb 32.2 pg (27.0-32.0); Mean Corpuscular Volume 93.9 fL (80-94); Mean Platelet Vol. 11.5 fl (6.2-12.0); Monocyte# 0.93 X10^3/uL; Monocyte% 11.4 % (0-10); NRBC Flagged by Analyzer 0 % (0-5); Neutrophil # 5.33 X10^3/uL (2.7-7.7); Neutrophil % 65.3 % (47-70); Platelet Count 163 K/mm3 (150-450); RBC Distribution Width CV 13.7 % (11.6-14.6); RBC Distribution Width SD 46.9 fl (35.1-43.9); Red Blood Count 4.41 M/mm3 (4.6-6.2); White Blood Count 8.2 K/mm3 (4.4-11.0)
[2022-06-26 14:00] LABS: ALB/GLOB Ratio 1.1 RATIO (0.9-2.4); AST(SGOT) 6 U/L (15-37); Alanine Aminotransfer ALT/SGPT 17 U/L (16-61); Albumin, Serum 3.7 g/dL (3.2-5.0); Alkaline Phosphatase 74 U/L (45-117); Anion Gap 6 (5-15); BUN 54 mg/dL (7-18); BUN/Creat Ratio 20.5 RATIO (10-20); Chloride 100 mmol/L (98-107); Creatinine, Serum 2.64 mg/dL (0.70-1.30); EST Glomerular Filtration Rate 26 mL/min (>60); Est Glom Filt Rate - Afr Amer 31 mL/min (>60); Globulin 3.3 g/dL (2.2-4.2); Glucose 179 mg/dL (74-106); Potassium 3.8 mmol/L (3.5-5.1); Sodium Level 138 mmol/L (136-145); Thyroid Stim Hormone (TSH) 1.22 uIU/mL (0.358-3.74)
== END | disposition home or self-care (01) ==
LOC: POLAB3 12:22
PROVIDERS: PCP Family Medicine Geriatric Medicine; Visit Provider Family Medicine Geriatric Medicine
DX: E11.65 Type 2 diabetes mellitus with hyperglycemia (principal); E55.9 Vitamin D deficiency, unspecified; R53.83 Other fatigue
CPT/HCPCS: 36415; 80053; 82306; 84443; 85025

== ENCOUNTER 2022-09-13 18:40 | Inpatient (IN) | payer MEDICARE, OTHER, SELFPAY ==
[2020-02-18 06:00] VITALS: BMI 28.0
[2022-09-13] VITALS (8 sets, daily range): BP systolic 95–126; BP diastolic 70–83; PULSE 63–118; RESP 12–19; TEMP 36.3–37.2; O2SAT 95–100; BMI 25.7
--- NOTE | 2022-09-13 19:21 | EX.ED.DYSGE1 ---
HPI History of Present Illness Chief Complaint: Syncope Informant: patient Narrative Narrative: Patient states he was sitting at a tattoo parlor chatting with some friends when he started feeling lightheaded. He had multiple episodes of this in the past 2 hours, no prior illness just prior to that, no other prodromal symptoms except for feeling like he needed to take a deep breath but not necessarily dyspneic. No chest pain, no palpitations. He has a pacer/AICD, it did not fire. It is only about a year or older so. He is not anticoagulated, he states he used to be, he has a history of a left ventricular apical thrombus. He denies any recent long travel, hospitalization, surgery, immobilization otherwise. No leg pain or swelling or history of DVT. He was near syncopal once, the episodes here in the past couple hours or just lasted seconds. No headache or focal neurologic symptoms. He feels fine sitting here right now. [facility] Medical History Abnormal echocardiogram Abnormal findings on diagnostic imaging of heart and coronary circulation Abnormal myocardial perfusion study Acute [place], subendocardial, subsequent episode of care Atherosclerotic heart disease of [place] coronary artery without angina pectoris Automatic implantable cardiac defibrillator in situ Blurred vision Cardiology follow-up encounter Cardiomyopathy in other diseases classified elsewhere Chest tightness CKD (chronic kidney disease) stage 3, GFR 30-59 ml/min Essential (primary) hypertension High cholesterol History of CHF (congestive heart failure) 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, rheumatic Neuropathy 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 Pacemaker Presence of cardiac 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) Presence of stent in coronary artery (11/10/19) Pure hypercholesterolemia Smoker Type 2 diabetes mellitus Ventricular tachycardia Wears glasses Home Medications rosuvastatin 10 mg tablet 10 mg PO QHS cholesterol 09/22/19 [History Last Taken 08/24/20] nitroglycerin 0.4 mg sublingual tablet (Nitrostat) 0.4 mg sublingual Q5M PRN Pain #25 tabs 07/22/20 [Rx Last Taken 08/25/20] aspirin 81 mg tablet,delayed release 81 mg PO DAILY@0800 HEALTH MAINTENANCE 08/25/20 [History Last Taken 12/11/21] albuterol sulfate 90 mcg/actuation aerosol inhaler 1 - 2 puff inhalation Q4H PRN PRN Shortness Of Breath ##1 08/26/20 [Rx Last Taken Unknown] furosemide 40 mg tablet 40 mg PO BID FLUID 03/09/21 [History Last Taken Unknown] icosapent ethyl 1 gram capsule (Vascepa) 1 g PO .COMPLEX CHOLESTEROL 08/29/21 [History Last Taken 12/11/21] pantoprazole 40 mg tablet,delayed release 40 mg PO DAILY #90 tabs 02/15/22 [Rx Last Taken Unknown] insulin degludec 100 unit/mL (3 mL) subcutaneous pen (Tresiba FlexTouch U-100 insulin) 5 unit subcut QHS 02/27/22 [History Last Taken Unknown] melatonin 3 mg tablet 3 mg PO QHS Insomnia 02/27/22 [History Last Taken Unknown] potassium chloride 20 mEq tablet,extended release 20 meq PO TID 02/27/22 [History Last Taken Unknown] carvedilol 12.5 mg tablet 12.5 mg PO BID #180 tabs 04/16/22 [Rx Last Taken Unknown] isosorbide mononitrate 30 mg tablet,extended release 24 hr 30 mg PO DAILY #90 tabs 04/23/22 [Rx Last Taken Unknown] metolazone 2.5 mg tablet 2.5 mg PO .COMPLEX #24 tabs 04/23/22 [Rx Last Taken Unknown] ranolazine 500 mg tablet,extended release,12 hr (Ranexa) 500 mg PO BID #180 tabs 08/30/22 [Rx Last Taken Unknown] Allergy/AdvReac Type Severity Reaction Status Date / Time FRANK Inhibitors Allergy cough Verified 09/13/22 18:44 atorvastatin [From Lipitor] Allergy myalgia Verified 09/13/22 18:44 gabapentin [From Neurontin] Allergy numbness Verified 09/13/22 18:44 Penicillins Allergy Hives Verified 09/13/22 18:44 Sulfa (Sulfonamide Allergy Hives Verified 09/13/22 18:44 Antibiotics) lisinopril AdvReac Intermediate Pain in Verified 09/13/22 18:44 joints bupropion AdvReac headaches Verified 09/13/22 18:44 and borderline psychotic Family History Father Myocardial infarction, Onset Age: 70 CAD (coronary artery disease) Hx of CABG Mother CAD (coronary artery disease) Diabetes Pacemaker Brother Myocardial infarction age of onset 40s Sister Myocardial infarction, Onset Age: 62 Rheumatic fever Son Hypertension Diabetes Daughter Diabetes Surgical History History of herniorrhaphy History of left heart catheterization (LHC) (~05/24/20) Presence of coronary angioplasty implant and graft (~05/22/19) Social History Smoking Status: Current every day smoker tobacco type: cigarettes quit status: considering quitting alcohol intake: current alcohol intake frequency: a few times a week Alcohol type: hard liquor substance use type: does not use caffeine: Yes Type: coffee Number of servings: 2 what type of physical activity do you participate in: none ROS ROS ED Constitutional Constitutional ED: Denies chills or fever(s) Eyes Eyes: Denies change in vision or diplopia ENT ENT ED: Denies rhinorrhea or sore throat Cardiovascular Cardiovascular: Reports as per HPI and lightheadedness; Denies chest pain, palpitations, pounding heartbeat or racing heartbeat Respiratory/Chest Respiratory/Chest: Reports dyspnea; Denies cough Gastrointestinal Gastrointestinal: Denies abdominal pain, diarrhea, nausea or vomiting Genitourinary Genitourinary ED: Denies dysuria or hematuria Musculoskeletal Musculoskeletal: Denies back pain or neck pain Integumentary Denies abscess or rash Neurologic Neurologic: Denies headache(s), paresthesias or weakness Psychiatric Psychiatric: Denies anxiety or suicidal thoughts EXAM Physical Exam Const Vital Signs: 09/13/22 18:41 09/13/22 18:47 09/13/22 20:26 Temperature 97.4 F L Temperature Source Oral Pulse Rate 68 118 H Respiratory Rate 18 19 H Respiratory Pattern Normal Blood Pressure 95/83 H 119/72 Blood Pressure Mean 87 87 Blood Pressure Source Pulse Ox 100 95 Oxygen Delivery Method Room Air Room Air 09/13/22 22:42 09/13/22 19:16 09/13/22 22:00 Temperature Temperature Source Pulse Rate 66 64 Respiratory Rate 13 18 Respiratory Pattern Blood Pressure 124/78 H 124/78 H Blood Pressure Mean 93 93 Blood Pressure Source Monitor Pulse Ox 99 99 98 Oxygen Delivery Method Room Air Room Air Room Air 09/13/22 22:54 Temperature Temperature Source Pulse Rate 63 Respiratory Rate 12 Respiratory Pattern Blood Pressure 109/72 Blood Pressure Mean 84 Blood Pressure Source Monitor Pulse Ox 99 Oxygen Delivery Method Room Air Positive well nourished and well developed General Appearance ED: well developed and NAD HEENT Reports moist mucous membranes normocephalic and atraumatic Eyes PERRL and EOMs intact bilaterally Neck full ROM and supple Chest Wall inspection of chest normal and palpation of chest normal Resp normal respiratory effort and clear to auscultation bilaterally Cardio regular rate, regular rhythm and no murmurs Rate: Negative for bradycardia or tachycardic GI non-tender, non-distended and no masses Auscultation: normoactive bowel sounds Palpation: soft Back/Spine no CVA tenderness General Back: other FROM Extremity normal to inspection General Extremety ED: Negative for edema, pulses abnormal or tenderness General Extremity: Negative for edema or pulses abnormal Neuro oriented x3, CN's II-XII intact bilaterally and no sensory deficits noted Sensorium / Orientation: awake and alert Motor Exam: strength 5/5 throughout Skin no rashes or lesions noted and no wounds MDM MDM MDM Narrative Medical decision making narrative: Initially, patient had a rate of 60 on the monitor, appears to be paced, asymptomatic with normal vital signs. Work-up included a D-dimer considering the possibility of PE given the symptoms. This came back elevated, but with his renal function and an EGFR of 21, similar to chronic, he is not a candidate for an emergent CTA of the chest right now. As he was being observed waiting for the work-up to return, it was noticed on telemetry he had runs of tachycardia to the 120-130 range. Some of these made him feel lightheaded, others did not. He did not feel any palpitations with any of this. I had another EKG obtained, I did catch some of it, it looks like ventricular tachycardia, it is definitely wide-complex and different compared to the other beats. Given all of this, I reviewed some of his old records. He has had an echocardiogram in the last year showing an ejection fraction of 15% and significant valvular problems. Given all of this I suspect this is cardiac in etiology, given his symptoms tonight. I do not think this is likely an acute PE since he is having runs of tachycardia and for the most part is not tachycardic. I attempted to have his NightOwl device queried, however the machine was not functioning correctly and we were not able to get any results. We discussed with the licensed psychiatric technician, he is 45 minutes away. I discussed with cardiology Dr. Swain. He is okay with the licensed psychiatric technician coming in in the morning since we are going to admit him to the hospitalist on amiodarone which I started in the ED. Lab Data Attestation: I reviewed the patient's lab results. Labs: Laboratory Results - last 24 hr 09/13/22 09/13/22 09/13/22 18:49 18:49 18:49 WBC 13.5 H RBC 4.22 L Hgb 13.8 Hct 39.4 L MCV 93.4 MCH 32.7 H MCHC 35.0 RDW Std Deviation 43.2 RDW Coeff of Jane 12.6 Plt Count 354 MPV 10.1 Immature Gran % (Auto) 1.300 H Neut % (Auto) 65.3 Lymph % (Auto) 15.5 L [place] % (Auto) 12.9 H Eos % (Auto) 4.4 Baso % (Auto) 0.6 Absolute Neuts (auto) 8.8 H Absolute Lymphs (auto) 2.09 Nucleated RBC % 0 Differential Comment SCANNED Diff Path Review May foll D-Dimer Quant (PE/DVT) 1.54 H* Sodium 134 L Potassium 3.8 Chloride 99 Carbon Dioxide 29.0 Anion Gap 6 BUN 58 H Creatinine 3.17 H Estim Creat Clear Calc 23.46 Est GFR (MDRD) Af Amer 25 L Est GFR (MDRD) Non-Af 21 L BUN/Creatinine Ratio 18.3 Glucose 121 H Calcium 9.4 Troponin I High Sens 38 09/13/22 22:15 WBC RBC Hgb Hct MCV MCH MCHC RDW Std Deviation RDW Coeff of Jane Plt Count MPV Immature Gran % (Auto) Neut % (Auto) Lymph % (Auto) [place] % (Auto) Eos % (Auto) Baso % (Auto) Absolute Neuts (auto) Absolute Lymphs (auto) Nucleated RBC % Differential Comment Diff Path Review D-Dimer Quant (PE/DVT) Sodium Potassium Chloride Carbon Dioxide Anion Gap BUN Creatinine Estim Creat Clear Calc Est GFR (MDRD) Af Amer Est GFR (MDRD) Non-Af BUN/Creatinine Ratio Glucose Calcium Troponin I High Sens 35 Radiography Chest X-Ray - ED: 2 View, Read by ED Physician and No Acute Disease Diagnostic Testing: Clinical Impression(s) from Imaging Studies Chest X-Ray 09/13/22 19:32 IMPRESSION: No radiographic evidence of acute cardiopulmonary disease. Electronically Signed: Princess Olivas MD at 20:04 EDT , Rhythm Strip Rhythm Strip: paced Rate: 60 Ectopy: PAC(s) (vs. [place] beats) EKG Initial EKG: Attestation: I personally reviewed and interpreted this EKG as follows: Interpretation: No Acute Injury Pattern and Paced Follow-up EKG: Attestation: I personally reviewed and interpreted this EKG as follows: Interpretation: Sinus Rhythm Comments: With runs of ventricular tachycardia Prior: Changed Management Discussion w/another healthcare provider: Hospitalist and Sound Engineer Audio Control (Cardiology) Critical Care Time Critical Care Time: Yes Critical care time (excluding procedures): 30-74 minutes (35 min), Including time spent:, Discussing w/Patient &/or Family/Photogeologist, Discussing w/Consultants, Arranging Admission or Transfer and Performing Direct Patient Care at Bedside Discharge Plan Dx/Rx/DC Orders Clinical Impression: Paroxysmal ventricular tachycardia, Ischemic cardiomyopathy, Presence of cardiac resynchronization therapy defibrillator (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
[2022-09-13 19:28] LABS: Absolute Lymphocyte Count 2.09 X10^3/uL (0.83-4.51); Absolute Neutrophil Count 8.8 X10^3/uL (2.0-7.7); Basophil# 0.08 X10^3/uL; Basophil% 0.6 % (0-1); Eosinophils% 4.4 % (0-5); Hematocrit 39.4 % (40-54); Hemoglobin 13.8 g/dL (13.0-16.5); Lymphocyte # 2.09 X10^3/ul (0.83-4.51); Lymphocyte % 15.5 % (19-41); Mean Corpuscular Hgb 32.7 pg (27.0-32.0); Mean Corpuscular Volume 93.4 fL (80-94); Mean Platelet Vol. 10.1 fl (6.2-12.0); Monocyte# 1.74 X10^3/uL; Monocyte% 12.9 % (0-10); NRBC Flagged by Analyzer 0 % (0-5); Neutrophil # 8.82 X10^3/uL (2.7-7.7); Neutrophil % 65.3 % (47-70); POSITIVE DIFFERENTIAL YES; Platelet Count 354 K/mm3 (150-450); RBC Distribution Width CV 12.6 % (11.6-14.6); RBC Distribution Width SD 43.2 fl (35.1-43.9); Red Blood Count 4.22 M/mm3 (4.6-6.2); White Blood Count 13.5 K/mm3 (4.4-11.0)
--- NOTE | 2022-09-13 19:32 | RAD_ITS ---
INDICATION: dyspnea EXAMINATION/TECHNIQUE: X-RAY - XR Chest 2 Views COMPARISON: 01/06/2021. FINDINGS: LINES/DEVICES: None. LUNGS: No consolidation, edema or effusion. No pneumothorax. MEDIASTINUM AND CARDIOVASCULAR STRUCTURES: Cardiac silhouette not enlarged. Central airways and mediastinal contour are unremarkable. BONES AND SOFT TISSUES: Unremarkable. RAD/Chest PA and Lateral IMPRESSION: No radiographic evidence of acute cardiopulmonary disease. Electronically Signed: Princess Olivas MD at 20:04 EDT Reading Location ID and State: [id number] / Tel , Service support ,
[2022-09-13 19:37] LABS: Differential Indicated SCAN CRITERIA MET
[2022-09-13 19:45] LABS: D-Dimer Quantitative (DVT/PE) 1.54 FEU/ug/m (0.27-0.49)
[2022-09-13 19:47] LABS: Differential Comment SCANNED
[2022-09-13 19:54] LABS: Anion Gap 6 (5-15); BUN 58 mg/dL (7-18); BUN/Creat Ratio 18.3 RATIO (10-20); Calcium,Total 9.4 mg/dL (8.5-10.1); Chloride 99 mmol/L (98-107); Creatinine, Serum 3.17 mg/dL (0.70-1.30); EST Glomerular Filtration Rate 21 mL/min (>60); Est Glom Filt Rate - Afr Amer 25 mL/min (>60); Estimated Creatinine Clearance 23.46 ml/min; Glucose 121 mg/dL (74-106); Potassium 3.8 mmol/L (3.5-5.1); Sodium Level 134 mmol/L (136-145); Troponin-I HS (w/2H Reflex) 38 pg/mL (3.0-78.0)
[2022-09-13 21:23] LABS: Reflex Troponin-HS? (from REC) Y
[2022-09-13 22:40] LABS: Troponin-I HS 35 pg/mL (3.0-78.0)
--- NOTE | 2022-09-13 23:31 | PCM.HP.STD ---
HPI - General General Date of Admission: 09/13/22 Date of Service: 09/13/22 Chief Complaint: Syncope HPI Narrative LAUREL DARLING, is a 72 M who presented emergency department at [facility] on 09/13/2022 with a chief complaint of near syncope. Patient was sitting at a tattoo parlor visiting which he states he does frequently but was not getting a new tattoo and reported that he started to feel lightheaded. He had multiple episodes of this feeling in the last 2 hours prior to presentation. He had been feeling well up until that point for the most part. He did report that over the last 2 weeks he had noted some increased dyspnea with exertion and increased fatigue but denied any chest pain that was associated. He has no chest pain at the time of evaluation and has no palpitations. He has a history of ischemic cardiomyopathy with an EF between 15 and 25%. He has a pacer/AICD and did not have any firing. He has a known history of left ventricular apical thrombus for which she was on Coumadin but this has since resolved and his Coumadin was discontinued several months ago. He was near syncopal 1 time during this event and his symptoms are lasting just a few seconds. Vital signs on presentation showed a temperature of 97.4, heart rate 68, blood pressure was 95/83, respiratory rate was 18 and oxygen saturation was 100% on room air. He has a mild leukocytosis with a white count of 13.5 but no left shift is present. He does have a mild monocytosis with a 12.9% monocytes. A D-dimer was obtained and found to be elevated at 1.54 however the patient has CKD stage IV and a CTA was not able to be performed. His chemistry panel showed mild hyponatremia with a sodium of 134 and an elevated BUN and creatinine at 58 and 3.17 respectively (baseline serum creatinine appears to be between 2.5 and 2.8). His serum glucose was 1.21. His Phos was normal at 2.5 but his magnesium was 1.5. Troponin was 35. While in the emergency department on telemetry it was noted that he would have runs of tachycardia with rates in the 120-130 range. Some of these made him feel lightheaded and he did not have any palpitations. A repeat EKG was obtained and showed ventricular tachycardia. They attempted to interrogate his pacer ICD in the emergency department however the machine was not functioning correctly and they were not able to get the results. He was started on an amiodarone drip and the case was discussed with cardiology. Consumer Attorney felt it was okay for interrogation to occur in the morning and recommended continuation of the amiodarone drip. ON LICENSE OF [facility] Medical History Abnormal echocardiogram Abnormal findings on diagnostic imaging of heart and coronary circulation Abnormal myocardial perfusion study Acute NE, subendocardial, subsequent episode of care Atherosclerotic heart disease of cheesh-na coronary artery without angina pectoris Automatic implantable cardiac defibrillator in situ Blurred vision Cardiology follow-up encounter Cardiomyopathy in other diseases classified elsewhere Chest tightness CKD (chronic kidney disease) stage 3, GFR 30-59 ml/min Essential (primary) hypertension High cholesterol History of CHF (congestive heart failure) 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, rheumatic Neuropathy 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 continuous churn (current) 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 therapy Pacemaker Presence of cardiac resynchronization therapy defibrillator ([employer]) (~06/22/21) Presence of stent in coronary artery (11/10/19) Pure hypercholesterolemia Smoker Type 2 diabetes mellitus Ventricular tachycardia Wears glasses Home Medications rosuvastatin 10 mg tablet 10 mg PO QHS cholesterol 09/22/19 [History Last Taken 08/24/20] nitroglycerin 0.4 mg sublingual tablet (Nitrostat) 0.4 mg sublingual Q5M PRN Pain #25 tabs 07/22/20 [Rx Last Taken 08/25/20] aspirin 81 mg tablet,delayed release 81 mg PO DAILY@0800 HEALTH MAINTENANCE 08/25/20 [History Last Taken 12/11/21] albuterol sulfate 90 mcg/actuation aerosol inhaler 1 - 2 puff inhalation Q4H PRN PRN Shortness Of Breath ##1 08/26/20 [Rx Last Taken Unknown] furosemide 40 mg tablet 40 mg PO BID FLUID 03/09/21 [History Last Taken Unknown] icosapent ethyl 1 gram capsule (Vascepa) 1 g PO .COMPLEX CHOLESTEROL 08/29/21 [History Last Taken 12/11/21] pantoprazole 40 mg tablet,delayed release 40 mg PO DAILY #90 tabs 02/15/22 [Rx Last Taken Unknown] insulin degludec 100 unit/mL (3 mL) subcutaneous pen (Tresiba FlexTouch U-100 insulin) 5 unit subcut QHS 02/27/22 [History Last Taken Unknown] melatonin 3 mg tablet 3 mg PO QHS Insomnia 02/27/22 [History Last Taken Unknown] potassium chloride 20 mEq tablet,extended release 20 meq PO TID 02/27/22 [History Last Taken Unknown] carvedilol 12.5 mg tablet 12.5 mg PO BID #180 tabs 04/16/22 [Rx Last Taken Unknown] isosorbide mononitrate 30 mg tablet,extended release 24 hr 30 mg PO DAILY #90 tabs 04/23/22 [Rx Last Taken Unknown] metolazone 2.5 mg tablet 2.5 mg PO .COMPLEX #24 tabs 04/23/22 [Rx Last Taken Unknown] ranolazine 500 mg tablet,extended release,12 hr (Ranexa) 500 mg PO BID #180 tabs 08/30/22 [Rx Last Taken Unknown] Allergy/AdvReac Type Severity Reaction Status Date / Time FRANK Inhibitors Allergy cough Verified 09/13/22 18:44 atorvastatin [From Lipitor] Allergy myalgia Verified 09/13/22 18:44 gabapentin [From Neurontin] Allergy numbness Verified 09/13/22 18:44 Penicillins Allergy Hives Verified 09/13/22 18:44 Sulfa (Sulfonamide Allergy Hives Verified 09/13/22 18:44 Antibiotics) lisinopril AdvReac Intermediate Pain in Verified 09/13/22 18:44 joints bupropion AdvReac headaches Verified 09/13/22 18:44 and borderline psychotic Family History Father Myocardial infarction, Onset Age: 70 CAD (coronary artery disease) Hx of CABG Mother CAD (coronary artery disease) Diabetes Pacemaker Brother Myocardial infarction age of onset 40s Sister Myocardial infarction, Onset Age: 62 Rheumatic fever Son Hypertension Diabetes Daughter Diabetes Surgical History History of herniorrhaphy History of left heart catheterization (LHC) (~05/24/20) Presence of coronary angioplasty implant and graft (~05/22/19) Social History Smoking Status: Current every day smoker tobacco type: cigarettes quit status: considering quitting alcohol intake: current alcohol intake frequency: a few times a week Alcohol type: hard liquor substance use type: does not use caffeine: Yes Type: coffee Number of servings: 2 what type of physical activity do you participate in: none ROS Constitutional Constitutional: Reports fatigue; Denies anorexia, change in weight, chills, fever(s), malaise, night sweats, weakness or other Eyes Eyes: Denies blurry vision, change in eye color, change in vision, discharge from eye(s), double vision, erythema, eye pain, loss of vision or other ENT HEENT: Denies abnormal hearing, dysphagia, ear pain, epistaxis, headache(s), hearing loss, nasal congestion, nasal discharge, post nasal drip, sinus pressure, sore throat or other Cardiovascular Cardiovascular: Reports dyspnea on exertion, lightheadedness and other Details: Near syncope x1 ; Denies chest pain, claudication, edema, orthopnea, palpitations, paroxysmal nocturnal dyspnea, rapid heart rate or syncope Respiratory/Chest Respiratory/Chest: Reports shortness of breath with exertion; Denies cough, dyspnea, excessive phlegm production, hemoptysis, productive cough, shortness of breath at rest, wheezing or other Gastrointestinal Gastrointestinal: Denies abdominal pain, coffee ground emesis, constipation, diarrhea, dyspepsia, hematemesis, hematochezia, loose stools, melena, nausea, vomiting or other Genitourinary Genitourinary: Denies burning urination, difficulty urinating, dysuria, hematuria, nocturia, urinary frequency, urinary hesitancy, urinary incontinence, urinary urgency or other Musculoskeletal Musculoskeletal: Denies arthralgias, back pain, joint pain, joint stiffness, joint swelling, myalgias, neck pain or other Neurologic Neurologic: Reports numbness; Denies abnormal gait, abnormal speech, confusion, disequilibrium, dizziness, focal weakness, headache(s), paresthesias, seizure-like activity, seizures, syncope, tingling, tremor(s) or other Psychiatric Psychiatric: Denies anxiety, depression, homicidal ideation, suicidal ideation or other Endocrine Endocrinology: Denies change in body appearance, cold intolerance, excessive sweating, heat intolerance, polydipsia, polyuria or other Hematologic/Lymphatic Hematologic/Lymphatic: Denies anemia, easy bleeding, easy bruising, lymphadenopathy or other Allergic/Immunologic Allergic/Immunologic: Denies rhinitis, hives, eczemia, asthma or other Vital Signs Vital Signs Vital Signs: 09/13/22 18:41 09/13/22 18:47 09/13/22 20:26 Temperature 97.4 F L Temperature Source Oral Pulse Rate 68 118 H Respiratory Rate 18 19 H Respiratory Pattern Normal Blood Pressure 95/83 H 119/72 Blood Pressure Mean 87 87 Blood Pressure Source Pulse Ox 100 95 Oxygen Delivery Method Room Air Room Air 09/13/22 22:42 09/13/22 19:16 09/13/22 22:00 Temperature Temperature Source Pulse Rate 66 64 Respiratory Rate 13 18 Respiratory Pattern Blood Pressure 124/78 H 124/78 H Blood Pressure Mean 93 93 Blood Pressure Source Monitor Pulse Ox 99 99 98 Oxygen Delivery Method Room Air Room Air Room Air 09/13/22 22:54 Temperature Temperature Source Pulse Rate 63 Respiratory Rate 12 Respiratory Pattern Blood Pressure 109/72 Blood Pressure Mean 84 Blood Pressure Source Monitor Pulse Ox 99 Oxygen Delivery Method Room Air Weight Weight: 86 kg Body Mass Index (BMI) 25.7 Physical Exam Const alert, oriented x3, no apparent distress, average body habitus and well nourished Constitutional Narrative: Elderly white male sitting up in bed, appears comfortable and nontoxic, very pleasant and appropriately interactive General Appearance: cooperative HEENT normocephalic and head/scalp atraumatic HEENT Narrative: Mild hearing impairment, dentition is fair, mucous membranes are moist, Mallampati is 2 Eyes PERRL, EOMs intact bilaterally and conjunctivae normal Eyes Narrative: No scleral icterus Neck no lymphadenopathy, supple, no JVD and no carotid bruits Neck Narrative: Achy midline, no thyroid enlargement Resp normal respiratory effort, no retractions, no use of accessory muscles and clear to auscultation bilaterally Resp Narrative: Slightly diminished diffusely but clear Auscultation: Negative for rales, rhonchi or wheezes Cardio S1 normal heart sound, S2 normal heart sound, no rub, no gallops, no clicks and no JVD; Negative for no murmurs Cardio Narrative: Frequent ectopy, rhythm is paced, 2 out of 6 systolic murmur GI normal to inspection, nondistended, normoactive bowel sounds, soft to palpation and non-tender Extremity Extremity Narrative: Pedal pulses are 2+, trace bilateral lower extremity edema, no cyanosis or clubbing Skin no rashes or lesions noted, no wounds, skin turgor normal, no jaundice, no petechiae and no mottling Skin Narrative: Few tattoos noted Neuro oriented x3, CN's II-XII intact bilaterally, moves all extremities and no focal motor deficits Speech: speech normal Motor Exam: strength 5/5 throughout Psych affect normal Psych Narrative: Very pleasant, appropriately interactive, eye contact is good Results Lab / Micro Data Result Diagrams: 09/13/22 18:49 09/13/22 18:49 Labs: Laboratory Results - last 24 hr 09/13/22 18:49: WBC 13.5 H, RBC 4.22 L, Hgb 13.8, Hct 39.4 L, MCV 93.4, MCH 32.7 H, MCHC 35.0, RDW Std Deviation 43.2, RDW Coeff of Jane 12.6, Plt Count 354, MPV 10.1, Immature Gran % (Auto) 1.300 H, Neut % (Auto) 65.3, Lymph % (Auto) 15.5 L, [place] % (Auto) 12.9 H, Eos % (Auto) 4.4, Baso % (Auto) 0.6, Absolute Neuts (auto) 8.8 H, Absolute Lymphs (auto) 2.09, Nucleated RBC % 0, Differential Comment SCANNED, Diff Path Review October09/13/22 18:49: D-Dimer Quant (PE/DVT) 1.54 H* 09/13/22 18:49: Sodium 134 L, Potassium 3.8, Chloride 99, Carbon Dioxide 29.0, Anion Gap 6, BUN 58 H, Creatinine 3.17 H, Estim Creat Clear Calc 23.46, Est GFR (MDRD) Af Amer 25 L, Est GFR (MDRD) Non-Af 21 L, BUN/Creatinine Ratio 18.3, Glucose 121 H, Calcium 9.4, Troponin I High Sens 38 09/13/22 22:15: Troponin I High Sens 35 Rhythm Strip Rhythm Strip: paced Rate: 60 Ectopy: PAC(s) (vs. cheesh-na beats) Radiology Impression Chest X-Ray 09/13/22 19:32 IMPRESSION: No radiographic evidence of acute cardiopulmonary disease. Electronically Signed: Princess Olivas MD at 20:04 EDT Reading Location ID and State: [id number] / Tel , Service support , Assessment & Plan Assessment/Plan (1) Ventricular tachycardia: (2) Elevated d-dimer: (3) Near syncope: (4) Elevated serum creatinine: (5) Leukocytosis: PLAN: Plan Near syncope secondary to VT -Patient found to have intermittent VT in the emergency department -Amiodarone drip initiated and overall improved--> continue -Continue home beta-shanna -Check echocardiogram -Check TSH -Check mag level and will bolus if less than 2 -Current potassium is 3.8 will give 20 mill equivalents now and repeat in a.m. with the attempt to get level greater than 4 -Patient with ICD--> device to be interrogated in the a.m. -Consult cardiology--> Case was discussed with Dr. Swain prior to admission -Patient may need further invasive study with cardiac catheterization with VT Elevated D-dimer -Etiology unclear however CTA was not able to be pursued secondary to CKD at baseline -Check VQ scan in a.m. Elevated serum creatinine on CKD stage IV -Baseline serum creatinine appears to be variable but looks predominantly to be between 2.5 and 2.8 -Current serum creatinine is 3.17 -Hold metolazone and Lasix at this time -We will avoid any IV fluids due to severely compromised ejection fraction -Avoid nephrotoxins -Repeat lab in a.m. History of left apical thrombus -Patient had been on Coumadin previously but it appears this has been discontinued as not on his med reconciliation -Repeat echocardiogram is pending Leukocytosis -Suspect reactive with possible viral etiology as patient does have a monocytosis on his differential -Continue to monitor -No current need for further work-up at this time DM-2 -Continue home basal insulin 5 units at at bedtime -SSI -Accu-Cheks as ordered CAD/hypertension/hyperlipidemia/ischemic cardiomyopathy -Continue rosuvastatin -Continue Ranexa -Continue as needed nitroglycerin -Continue isosorbide mononitrate -Continue icosapent ethyl -Continue Coreg -Continue aspirin 81 mg -Hold Lasix and metolazone -Last echocardiogram done on 03/08/2022 showed severe segmental systolic dysfunction with an EF of 25%, moderate left atrial enlargement, mild right atrial enlargement, papillary muscle dysfunction, 2+ mitral valve insufficiency, borderline dilated aortic root -Patient has ICD -PTCA/YUDY to LCX and PTCA/YUDY to mid and distal RCA 06/22/11; Successful PTCA/YUDY to proximal/mid PL branch of RCA with a 3.0 x 38 Promus Synergy, post dilated proximally with a 3.5 x 8 NC Balloon; 75%-->0%, no dissection 05/22/19. Successful PTCA/YUDY mid LCX with a 2.25 x 28 Promus Synergy, followed immediately downstream with a 2.25 x 8 Promus Synergy; 75%-->0%, no dissection. Successful PTCA/YUDY of proximal LCX with a 2.5 x 8 Promus Synergy, post dilated with a 3.0 x 8 NC balloon; 75%-->0%. no dissection. 11/10/2019 -Most recent stress test from 08/26/2020 was negative for ischemia Insomnia -Continue home melatonin GERD -Continue home Protonix DVT prophylaxis -Heparin twice daily CODE STATUS -DNR CCA okay for short-term intubation as per discussion the emergency department prior to admission Charges/Coding Visit Charges Inpatient E&M: 00902 Init Hosp L3
--- NOTE | 2022-09-13 23:37 | ECHOCS_ITS ---
Reason For Study: Arrhythmia Procedure This was a 2D Doppler, Color Flow transthoracic echocardiogram. The study was technically difficult. Contrast injection was performed. Exam performed portable in ICU/CCU. Left Ventricle Severely dilated left ventricle. Severe global left ventricular systolic dysfunction. The left ventricular ejection fraction is 25 %. Stage 2 diastolic dysfunction. Right Ventricle Normal right ventricle. There is a pacemaker lead in the right ventricle. Atria The left atrium is severely enlarged. ICD or pacer leads identified within the right atrium. Mitral Valve Severe (4+) mitral valve insufficiency. Tricuspid Valve Mild tricuspid valve insufficiency. Pulmonary artery systolic pressure is 40 mmHg. Mild pulmonary hypertension. Aortic Valve Trivial aortic valve insufficiency. Pulmonic Valve The pulmonic valve is not well visualized. Trivial pulmonic valve insufficiency. Great Vessels Mildly dilated aortic root. Pericardium/Pleural No pericardial effusion. Medication Diluted definity 2ml given slow IV push to enhance endocardial definition. MMode/2D Measurements & Calculations LVIDd: 8.6 cm IVSd: 1.0 cm Ao root diam: 3.9 cm LVIDs: 7.8 cm LVPWd: 0.92 cm LA dimension: 5.6 cm RVDd: 3.3 cm FS: 9.1 % LAV(MOD-bp): 102.7 ml LVAd ap4: 66.9 cm2 SV(MOD-sp4): 61.5 ml LAV(MOD-bp) Indexed: 50.2 ml/m2 LVLd ap4: 9.7 cm LAV(MOD-sp2): 98.1 ml EDV(MOD-sp4): 369.5 ml LAV(MOD-sp4): 90.8 ml EDV(sp4-el): 390.1 ml LVAs ap4: 61.2 cm2 LVLs ap4: 9.7 cm ESV(MOD-sp4): 308.0 ml ESV(sp4-el): 326.6 ml EF(MOD-sp4): 16.6 % EF(sp4-el): 16.3 % SV(sp4-el): 63.5 ml LA A4 area: 28.3 cm2 RA A4 area: 15.9 cm2 Time Measurements MV dec time: 0.24 sec Doppler Measurements & Calculations MV E max tom: 90.4 cm/sec Lat Peak E' Tom: 3.5 cm/sec Med Peak E' Tom: 4.6 cm/sec MV A max tom: 99.2 cm/sec E/E' lat: 26.1 E/E' med: 19.5 MV E/A: 0.91 MV V2 max: 108.1 cm/sec MV P1/2t max tom: 100.0 cm/sec Ao V2 max: 132.5 cm/sec MV max P.7 mmHg MV P1/2t: 64.0 msec Ao max P.0 mmHg MV V2 mean: 57.2 cm/sec Ao V2 mean: 89.3 cm/sec MV mean P.5 mmHg MV dec slope: 457.5 cm/sec2 Ao mean P.7 mmHg MV V2 VTI: 31.5 cm MVA(P1/2t): 3.4 cm2 Ao V2 VTI: 27.1 cm AV (velocity ratio): 0.51 LV V1 max: 72.3 cm/sec MR max tom: 609.2 cm/sec PA V2 max: 61.6 cm/sec LV V1 max P.1 mmHg MR max P.4 mmHg LV V1 mean P.1 mmHg MR mean tom: 394.2 cm/sec LV V1 mean: 50.3 cm/sec MR mean P.7 mmHg LV V1 VTI: 13.9 cm MR VTI: 240.9 cm TR max tom: 274.2 cm/sec TR max P.1 mmHg ECHO/Echo Complete W/ Contrast Interpretation Summary Severely dilated left ventricle. Severe global left ventricular systolic dysfunction. The left ventricular ejection fraction is 25 %. Stage 2 diastolic dysfunction. The left atrium is severely enlarged. Severe (4+) mitral valve insufficiency. Mild pulmonary hypertension. Mildly dilated aortic root. Ordering Physician: Afshan Lai Referring Physician: Eleuterio Abreu Chi Performed By: Ruddy Francisco RCS
[2022-09-13 23:50] LABS: Magnesium 1.5 mg/dL (1.6-2.6); Phosphorus 2.5 mg/dL (2.5-4.9)
[2022-09-14] VITALS (16 sets, daily range): BP systolic 106–152; BP diastolic 49–84; PULSE 60–114; RESP 12–18; TEMP 36.4; O2SAT 96–100; BMI 24.7
[2022-09-14] MEDS: Potassium Chloride Oral Tablet 20 MEQ PO ×3 (01:24→11:59)
[2022-09-14] MEDS: Magnesium Sulfate 4gm/100mL 4 GM/100 ML IV.SOLN. IV (01:25)
[2022-09-14] MEDS: CLARIFY ORDER 1 EACH NOTE (01:30)
[2022-09-14 02:23] LABS: Absolute Lymphocyte Count 2.38 X10^3/uL (0.83-4.51); Absolute Neutrophil Count 6.6 X10^3/uL (2.0-7.7); Basophil# 0.09 X10^3/uL; Basophil% 0.8 % (0-1); Eosinophil# 0.57 X10^3/uL; Eosinophils% 5.2 % (0-5); Hematocrit 34.7 % (40-54); Lymphocyte # 2.38 X10^3/ul (0.83-4.51); Lymphocyte % 21.9 % (19-41); Mean Corp Hgb Conc 34.6 g/dL (32-36); Mean Corpuscular Hgb 32.2 pg (27.0-32.0); Monocyte# 1.07 X10^3/uL; Monocyte% 9.8 % (0-10); NRBC Flagged by Analyzer 0 % (0-5); Neutrophil # 6.59 X10^3/uL (2.7-7.7); Neutrophil % 60.6 % (47-70); Platelet Count 293 K/mm3 (150-450); RBC Distribution Width CV 12.7 % (11.6-14.6); RBC Distribution Width SD 43.6 fl (35.1-43.9); Red Blood Count 3.73 M/mm3 (4.6-6.2); White Blood Count 10.9 K/mm3 (4.4-11.0)
[2022-09-14 02:48] LABS: Troponin-I HS 32 pg/mL (3.0-78.0)
[2022-09-14 02:54] LABS: ALB/GLOB Ratio 0.8 RATIO (0.9-2.4); AST(SGOT) 10 U/L (15-37); Alanine Aminotransfer ALT/SGPT 11 U/L (16-61); Albumin, Serum 2.8 g/dL (3.2-5.0); Alkaline Phosphatase 58 U/L (45-117); Anion Gap 8 (5-15); BUN 58 mg/dL (7-18); BUN/Creat Ratio 18.7 RATIO (10-20); Calcium,Total 8.6 mg/dL (8.5-10.1); Chloride 100 mmol/L (98-107); EST Glomerular Filtration Rate 21 mL/min (>60); Est Glom Filt Rate - Afr Amer 26 mL/min (>60); Estimated Creatinine Clearance 23.99 ml/min; Globulin 3.5 g/dL (2.2-4.2); Glucose 197 mg/dL (74-106); Magnesium 1.9 mg/dL (1.6-2.6); Potassium 3.4 mmol/L (3.5-5.1); Protein, Total 6.3 g/dL (6.4-8.2); Sodium Level 133 mmol/L (136-145); Thyroid Stim Hormone (TSH) 0.84 uIU/mL (0.358-3.74)
[2022-09-14] MEDS: 0.9% Saline Lock 10 ML Syringe IV (05:15)
[2022-09-14] MEDS: Aspirin E.C. 81 MG Tablet PO (07:48)
[2022-09-14] MEDS: Carvedilol 12.5 MG Tablet PO (07:48)
[2022-09-14] MEDS: Potassium Chloride Oral Tablet 20 MEQ 40 MEQ PO (07:51)
[2022-09-14] MEDS: CHLORHEXIDINE GLUC 2% CLOTH 1 EACH TOWELETTE TOPICAL (07:54)
[2022-09-14 08:10] LABS: Bedside Glucose 137 mg/dL (74-106)
--- NOTE | 2022-09-14 09:00 | NM_ITS ---
CLINICAL: 72-year-old male with history of elevation of the d-dimer. VENTILATION-PERFUSION LUNG SCINTIGRAPHY COMPARISON: Plain film chest radiograph report 09/13/2022 FINDINGS: The patient was administered 49.5 mCi 99m Tc DTPA aerosol. The aerosol ventilation study demonstrates heterogeneous ventilation identified throughout the bilateral lung frausto without corresponding radiographic changes defined on plain film chest x-ray dated 09/13/2022. Central clumping of the aerosol is noted in the bilateral hemithorax. Following the intravenous administration of 5.5 mCi of 99m Tc MAA the pulmonary perfusion study reveals uniform perfusion throughout both lung frausto. There are no segmental or subsegmental perfusion defects identified. There are no ventilation-perfusion mismatches observed. NM/Lung Scan Vent/Perf IMPRESSION: 1. NORMAL 99m Tc MAA pulmonary perfusion imaging examination, according to PIOPED II interpretive criteria. (Sotsman et al, Radiology 246: 941, 2008 Sosujata et al, J Nucl Med 49: 1741, 2008). 2. Central clumping of the aerosol may be secondary to obstructive airway mechanics and or clinical tachypnea. Electronically Signed: Ambrosio Hebert, at 10:28 EDT ,
[2022-09-14] MEDS: Isosorbide Mononitrate 30 MG Tablet PO (09:27)
[2022-09-14] MEDS: Pantoprazole Sodium 40 MG Tablet PO (09:27)
[2022-09-14] MEDS: Ranolazine 500 MG Tablet PO (09:27)
[2022-09-14] MEDS: Heparin Injection (Vial) 5,000 UNIT/ML VIAL 5000 UNIT SC (09:27)
--- NOTE | 2022-09-14 09:48 | PN_ITS ---
Subjective Subjective Patient seen and examined. He was admitted with a complaint of presyncope yesterday. Troponins were not elevated and he was found to be in V. tach on admission. His ICD has not fired. He currently has no complaints and had an uneventful night. He states he feels much better. He denies any lightheadedness, dizziness, palpitations, nausea or vomiting or any other symptoms. He denies any chest pains. Review of systems otherwise negative. Objective Data Objective Data Vital Signs: Vital Signs Temp Pulse Resp BP Pulse Ox O2 Del Method 97.6 F L 61 16 152/62 H 99 Room Air 09/14/22 08:00 09/14/22 09:00 09/14/22 09:00 09/14/22 09:00 09/14/22 09:00 09/14/22 09:00 Oxygen Delivery Method Room Air Weight: 182 lb 5.156 oz Body Mass Index (BMI) 24.7 Intake & Output: Intake and Output for Last 24 Hours 09/12/22 09/13/22 09/14/22 23:59 23:59 23:59 Intake Total 131.86 / 131.86 471.14 / 471.14 Balance 131.86 / 131.86 471.14 / 471.14 Lab / Micro Data Result Diagrams: 09/14/22 02:15 09/14/22 02:15 Labs: Laboratory Results - last 24 hr 09/13/22 18:49: WBC 13.5 H, RBC 4.22 L, Hgb 13.8, Hct 39.4 L, MCV 93.4, MCH 32.7 H, MCHC 35.0, RDW Std Deviation 43.2, RDW Coeff of Jane 12.6, Plt Count 354, MPV 10.1, Immature Gran % (Auto) 1.300 H, Neut % (Auto) 65.3, Lymph % (Auto) 15.5 L, [place] % (Auto) 12.9 H, Eos % (Auto) 4.4, Baso % (Auto) 0.6, Absolute Neuts (auto) 8.8 H, Absolute Lymphs (auto) 2.09, Nucleated RBC % 0, Differential Comment SCANNED, Diff Path Review October09/13/22 18:49: D-Dimer Quant (PE/DVT) 1.54 H* 09/13/22 18:49: Sodium 134 L, Potassium 3.8, Chloride 99, Carbon Dioxide 29.0, Anion Gap 6, BUN 58 H, Creatinine 3.17 H, Estim Creat Clear Calc 23.46, Est GFR (MDRD) Af Amer 25 L, Est GFR (MDRD) Non-Af 21 L, BUN/Creatinine Ratio 18.3, Glucose 121 H, Calcium 9.4, Troponin I High Sens 38 09/13/22 22:15: Troponin I High Sens 35 09/13/22 22:15: Phosphorus 2.5, Magnesium 1.5 L 09/14/22 02:15: WBC 10.9, RBC 3.73 L, Hgb 12.0 L, Hct 34.7 L, MCV 93.0, MCH 32.2 H, MCHC 34.6, RDW Std Deviation 43.6, RDW Coeff of Jane 12.7, Plt Count 293, MPV 10.0, Immature Gran % (Auto) 1.700 H, Neut % (Auto) 60.6, Lymph % (Auto) 21.9, [place] % (Auto) 9.8, Eos % (Auto) 5.2 H, Baso % (Auto) 0.8, Absolute Neuts (auto) 6.6, Absolute Lymphs (auto) 2.38, Nucleated RBC % 0 09/14/22 02:15: Sodium 133 L, Potassium 3.4 L, Chloride 100, Carbon Dioxide 25.0, Anion Gap 8, BUN 58 H, Creatinine 3.10 H, Estim Creat Clear Calc 23.99, Est GFR (MDRD) Af Amer 26 L, Est GFR (MDRD) Non-Af 21 L, BUN/Creatinine Ratio 18.7, Glucose 197 H, Calcium 8.6, Magnesium 1.9, Total Bilirubin 0.40, AST 10 L, ALT 11 L, Alkaline Phosphatase 58, Total Protein 6.3 L, Albumin 2.8 L, Globulin 3.5, Albumin/Globulin Ratio 0.8 L, TSH 0.84 09/14/22 02:15: Troponin I High Sens 32 09/14/22 07:34: POC Glucose 137 H Radiography Diagnostic Testing: Radiology Impression Chest X-Ray 09/13/22 19:32 IMPRESSION: No radiographic evidence of acute cardiopulmonary disease. Electronically Signed: Princess Olivas MD at 20:04 EDT Reading Location ID and State: [id number] / Tel , Service support , Rhythm Strip Rhythm Strip: paced Rate: 60 Ectopy: PAC(s) (vs. [place] beats) Physical Exam Const alert, oriented x3 and no apparent distress General Appearance: cooperative HEENT head/scalp atraumatic and moist oral mucous membranes Eyes PERRL and EOMs intact bilaterally Neck no lymphadenopathy, supple and no JVD Lymph Lymphatic: no lymphadenopathy noted and no lymphedema noted Resp normal respiratory effort, normal air movement and clear to auscultation leonid aterally Cardio regular rate, regular rhythm, S1 normal heart sound, S2 normal heart sound and no murmurs GI normal to inspection, nondistended, normoactive bowel sounds, soft to palpation and non-tender Extremity normal capillary refill, no clubbing, cyanosis or edema and no calf tenderness Skin General Skin Exam: no breakdown Neuro CN's II-XII intact bilaterally, no focal motor deficits, no sensory deficits noted and deep tendon reflexes 2+ bilaterally Psych thought process normal and cooperative Appearance: appropriate Assessment & Plan Assessment/Plan (1) Near syncope: PLAN: Plan #Near syncope due to ventricular tachycardia * currently on amiodarone drip * 2D echo done this morning, read pending * ICD to be interrogated today * cardiology on board * PT.OT on board * fall precautions * troponins wre not elevated * on beta shanna * * #Elevated D dimer: couldnt have CTA of the chest on account of impaired kidney function. VQ scan ordered for today. #Hypokalemia: Potassium is 3.4. Will replace and trend. Check magnesium also. TO keep potassium >4 and Mg >2 #DANISH on CKD stage IV: * Cr is 3.1 today. basleine seeems to be ~ 2.5. * will hold off on aggressive hydration due to low EF * Metolazone and Lasix on hold. Will trend creatinine. #History of left apical thrombus * Used to be on Coumadin but was told that the clot had dissolved so Coumadin was stopped. * 2D echo pending. #Type 2 diabetes mellitus * On Lantus 5 units daily. Insulin sliding scale. Accu-Cheks ACHS. #CAD s/p stents * On high intensity statin, Imdur and Coreg as well as aspirin and icosapent * Patient allergic to statins hence his been on icosapent. * As 2D echo from February 2022 showed EF of 25% with severe segmental systolic dysfunction and moderate left atrial enlargement as well as mild right atrial enlargement. * Repeat 2D echo pending * #GERD: On Protonix #Leukocytosis: Resolved Total time spent on evaluation and management of patient, reviewing chart and specialist notes, discussing plan with patient, discussion with nursing and ancillary staff as well as documentation: 47 mins Charges/Coding Visit Charges Inpatient E&M: 94506 Subs Hosp L3
[2022-09-14 11:02] LABS: Anion Gap 10 (5-15); BUN 57 mg/dL (7-18); BUN/Creat Ratio 18.1 RATIO (10-20); Calcium,Total 9.2 mg/dL (8.5-10.1); Chloride 98 mmol/L (98-107); Creatinine, Serum 3.15 mg/dL (0.70-1.30); EST Glomerular Filtration Rate 21 mL/min (>60); Est Glom Filt Rate - Afr Amer 25 mL/min (>60); Estimated Creatinine Clearance 23.61 ml/min; Glucose 188 mg/dL (74-106); Magnesium 2.6 mg/dL (1.6-2.6); Potassium 4.2 mmol/L (3.5-5.1); Sodium Level 135 mmol/L (136-145)
[2022-09-14] MEDS: Insulin Lispro 100 UNIT/ML INSULN.PEN SC (11:56)
--- NOTE | 2022-09-14 12:00 | CASEMGMT ---
RN CM Face to Face with patient for initial transition planning/care coordination assessment. RN CM introduced self and role at [facility]. Patient sitting in chair, alert and oriented. Patient willing to participate in assessment and is able to answer all questions appropriately. Care providers, pharmacy, and demographics verified. Patient wishes to discharge home, denies need for home health at this time. Patient states he has no further needs or concerns at this time. CM to follow for discharge planning needs that may arise. PCP: [facility] Specialists: [facility]; [facility] Preferred Pharmacy: [facility] Insurance: [employer], [employer] other Prescription Benefit: yes Living Will/HPOA: none LNOK: daughter Living Arrangements: Patient lives alone in a 2 story home with bed and bath on first floor, 3 steps and railing to enter the home. Patient states he is independent at home. Transportation: self, neighbor, daughter DME/HHC: Patient states he has cane and glucometer at home. No previous HHC or SNF Disposition Plan: Patient to discharge home with family support and follow-up plans in place. Anette FRITZ, RN, CM
[2022-09-14 12:20] LABS: Bedside Glucose 177 mg/dL (74-106)
[2022-09-14 13:02] LABS: Pathologist Review Reviewed
--- NOTE | 2022-09-14 13:42 | PCM.CONS.C ---
Assessment & Plan Assessment/Plan (1) Wide-complex tachycardia: PLAN: ICD interrogated. No ventricular tachycardia is noted. Pacemaker induced tachycardia noted. Changes made to post ventricular atrial refractory period. Stop amiodarone. Continue beta-blockers. (2) Ischemic cardiomyopathy: PLAN: Stable. Continue current medications. Resume patient's diuretics on discharge. (3) CKD (chronic kidney disease): PLAN: Creatinine has been stable. (4) Coronary artery disease: PLAN: Stable. Asymptomatic. (5) Automatic implantable cardiac defibrillator in situ: PLAN: See #1 above. PLAN: Plan Okay to discharge home from cardiology standpoint. Follow as outpatient. HPI Consult Data Date of Consult: 09/14/22 HPI Narrative Reason for Consultation: Wide-complex tachycardia HPI Narrative: The patient presented to the emergency room with complaints of episodes of lightheadedness. He has history of ischemic cardiomyopathy status post ICD placement. In the ER, he was noted to have runs of wide-complex tachycardia. It was thought that he was having runs of ventricular tachycardia. Subsequently he was started on an amiodarone infusion and admitted. Patient this morning had his ICD interrogated by the device rep. He was not found to have any ventricular tachycardias. The tachycardia was noted to be pacemaker mediated tachycardia. Subsequently settings have been changed with increasing his PVARP. Patient himself denies any complaints this morning. No chest pain. No shortness of breath. No palpitations. No orthopnea or PND. Denies any ankle edema. [facility] Medical History Abnormal echocardiogram Abnormal findings on diagnostic imaging of heart and coronary circulation Abnormal myocardial perfusion study Acute DE, subendocardial, subsequent episode of care Atherosclerotic heart disease of habematolel coronary artery without angina pectoris Automatic implantable cardiac defibrillator in situ Blurred vision Cardiology follow-up encounter Cardiomyopathy in other diseases classified elsewhere Chest tightness CKD (chronic kidney disease) stage 3, GFR 30-59 ml/min Essential (primary) hypertension High cholesterol History of CHF (congestive heart failure) 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, rheumatic Neuropathy 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 Pacemaker Presence of cardiac 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) Presence of stent in coronary artery (11/10/19) Pure hypercholesterolemia Smoker Type 2 diabetes mellitus Ventricular tachycardia Wears glasses Home Medications rosuvastatin 10 mg tablet 10 mg PO QHS cholesterol 09/22/19 [History Last Taken 08/24/20] nitroglycerin 0.4 mg sublingual tablet (Nitrostat) 0.4 mg sublingual Q5M PRN Pain #25 tabs 07/22/20 [Rx Last Taken 08/25/20] aspirin 81 mg tablet,delayed release 81 mg PO DAILY@0800 HEALTH MAINTENANCE 08/25/20 [History Last Taken 12/11/21] albuterol sulfate 90 mcg/actuation aerosol inhaler 1 - 2 puff inhalation Q4H PRN PRN Shortness Of Breath ##1 08/26/20 [Rx Last Taken Unknown] furosemide 40 mg tablet 40 mg PO BID FLUID 03/09/21 [History Last Taken Unknown] icosapent ethyl 1 gram capsule (Vascepa) 1 g PO .COMPLEX CHOLESTEROL 08/29/21 [History Last Taken 12/11/21] pantoprazole 40 mg tablet,delayed release 40 mg PO DAILY #90 tabs 02/15/22 [Rx Last Taken Unknown] insulin degludec 100 unit/mL (3 mL) subcutaneous pen (Tresiba FlexTouch U-100 insulin) 5 unit subcut QHS 02/27/22 [History Last Taken Unknown] melatonin 3 mg tablet 3 mg PO QHS Insomnia 02/27/22 [History Last Taken Unknown] potassium chloride 20 mEq tablet,extended release 20 meq PO TID 02/27/22 [History Last Taken Unknown] carvedilol 12.5 mg tablet 12.5 mg PO BID #180 tabs 04/16/22 [Rx Last Taken Unknown] isosorbide mononitrate 30 mg tablet,extended release 24 hr 30 mg PO DAILY #90 tabs 04/23/22 [Rx Last Taken Unknown] metolazone 2.5 mg tablet 2.5 mg PO .COMPLEX #24 tabs 04/23/22 [Rx Last Taken Unknown] ranolazine 500 mg tablet,extended release,12 hr (Ranexa) 500 mg PO BID #180 tabs 08/30/22 [Rx Last Taken Unknown] Allergy/AdvReac Type Severity Reaction Status Date / Time FRANK Inhibitors Allergy cough Verified 09/13/22 18:44 atorvastatin [From Lipitor] Allergy myalgia Verified 09/13/22 18:44 gabapentin [From Neurontin] Allergy numbness Verified 09/13/22 18:44 Penicillins Allergy Hives Verified 09/13/22 18:44 Sulfa (Sulfonamide Allergy Hives Verified 09/13/22 18:44 Antibiotics) lisinopril AdvReac Intermediate Pain in Verified 09/13/22 18:44 joints bupropion AdvReac headaches Verified 09/13/22 18:44 and borderline psychotic Family History Father Myocardial infarction, Onset Age: 70 CAD (coronary artery disease) Hx of CABG Mother CAD (coronary artery disease) Diabetes Pacemaker Brother Myocardial infarction age of onset 40s Sister Myocardial infarction, Onset Age: 62 Rheumatic fever Son Hypertension Diabetes Daughter Diabetes Surgical History History of herniorrhaphy History of left heart catheterization (LHC) (~05/24/20) Presence of coronary angioplasty implant and graft (~05/22/19) Social History Smoking Status: Current every day smoker tobacco type: cigarettes quit status: considering quitting alcohol intake: current alcohol intake frequency: a few times a week Alcohol type: hard liquor substance use type: does not use caffeine: Yes Type: coffee Number of servings: 2 what type of physical activity do you participate in: none Physical Exam Narrative Comfortable. Sitting in the chair. No acute distress. Heart sounds 1 and 2 are normal. Chest clear to auscultation bilaterally. Abdomen soft. Alert oriented x3. No ankle edema noted. Risk Stratification Risk Stratification Applicable: No Objective Data Vital Signs: Vital Signs Temp Pulse Resp BP Pulse Ox O2 Del Method 97.6 F L 108 H 15 113/76 99 Room Air 09/14/22 12:00 09/14/22 13:00 09/14/22 13:00 09/14/22 13:00 09/14/22 13:00 09/14/22 13:00 Oxygen Delivery Method Room Air Weight: 182 lb 5.156 oz Body Mass Index (BMI) 24.7 Intake & Output: Intake and Output for Last 24 Hours 09/12/22 09/13/22 09/14/22 23:59 23:59 23:59 Intake Total 131.86 / 131.86 711.14 / 711.14 Balance 131.86 / 131.86 711.14 / 711.14 Lab / Micro Data Result Diagrams: 09/14/22 02:15 09/14/22 10:40 Labs: Laboratory Results - last 24 hr 09/13/22 18:49: WBC 13.5 H, RBC 4.22 L, Hgb 13.8, Hct 39.4 L, MCV 93.4, MCH 32.7 H, MCHC 35.0, RDW Std Deviation 43.2, RDW Coeff of Jane 12.6, Plt Count 354, MPV 10.1, Immature Gran % (Auto) 1.300 H, Neut % (Auto) 65.3, Lymph % (Auto) 15.5 L, [place] % (Auto) 12.9 H, Eos % (Auto) 4.4, Baso % (Auto) 0.6, Absolute Neuts (auto) 8.8 H, Absolute Lymphs (auto) 2.09, Nucleated RBC % 0, Differential Comment SCANNED, Diff Path Review Reviewed 09/13/22 18:49: D-Dimer Quant (PE/DVT) 1.54 H* 09/13/22 18:49: Sodium 134 L, Potassium 3.8, Chloride 99, Carbon Dioxide 29.0, Anion Gap 6, BUN 58 H, Creatinine 3.17 H, Estim Creat Clear Calc 23.46, Est GFR (MDRD) Af Amer 25 L, Est GFR (MDRD) Non-Af 21 L, BUN/Creatinine Ratio 18.3, Glucose 121 H, Calcium 9.4, Troponin I High Sens 38 09/13/22 22:15: Troponin I High Sens 35 09/13/22 22:15: Phosphorus 2.5, Magnesium 1.5 L 09/14/22 02:15: WBC 10.9, RBC 3.73 L, Hgb 12.0 L, Hct 34.7 L, MCV 93.0, MCH 32.2 H, MCHC 34.6, RDW Std Deviation 43.6, RDW Coeff of Jane 12.7, Plt Count 293, MPV 10.0, Immature Gran % (Auto) 1.700 H, Neut % (Auto) 60.6, Lymph % (Auto) 21.9, [place] % (Auto) 9.8, Eos % (Auto) 5.2 H, Baso % (Auto) 0.8, Absolute Neuts (auto) 6.6, Absolute Lymphs (auto) 2.38, Nucleated RBC % 0 09/14/22 02:15: Sodium 133 L, Potassium 3.4 L, Chloride 100, Carbon Dioxide 25.0, Anion Gap 8, BUN 58 H, Creatinine 3.10 H, Estim Creat Clear Calc 23.99, Est GFR (MDRD) Af Amer 26 L, Est GFR (MDRD) Non-Af 21 L, BUN/Creatinine Ratio 18.7, Glucose 197 H, Calcium 8.6, Magnesium 1.9, Total Bilirubin 0.40, AST 10 L, ALT 11 L, Alkaline Phosphatase 58, Total Protein 6.3 L, Albumin 2.8 L, Globulin 3.5, Albumin/Globulin Ratio 0.8 L, TSH 0.84 09/14/22 02:15: Troponin I High Sens 32 09/14/22 07:34: POC Glucose 137 H 09/14/22 10:40: Sodium 135 L, Potassium 4.2, Chloride 98, Carbon Dioxide 27.0, Anion Gap 10, BUN 57 H, Creatinine 3.15 H, Estim Creat Clear Calc 23.61, Est GFR (MDRD) Af Amer 25 L, Est GFR (MDRD) Non-Af 21 L, BUN/Creatinine Ratio 18.1, Glucose 188 H, Calcium 9.2, Magnesium 2.6 09/14/22 11:53: POC Glucose 177 H Rhythm Strip Rhythm Strip: paced Rate: 60 Ectopy: PAC(s) (vs. habematolel beats) Cardiology Labs/Tests 09/13/22 18:49: WBC 13.5 H, RBC 4.22 L, Hgb 13.8, Hct 39.4 L, MCV 93.4, MCH 32.7 H, MCHC 35.0, Plt Count 354, MPV 10.1, Immature Gran % (Auto) 1.300 H, Neut % (Auto) 65.3, Lymph % (Auto) 15.5 L, [place] % (Auto) 12.9 H, Eos % (Auto) 4.4, Baso % (Auto) 0.6, Absolute Neuts (auto) 8.8 H, Nucleated RBC % 0 09/13/22 18:49: D-Dimer Quant (PE/DVT) 1.54 H* 09/13/22 18:49: Sodium 134 L, Potassium 3.8, Chloride 99, Carbon Dioxide 29.0, Anion Gap 6, BUN 58 H, Creatinine 3.17 H, Est GFR (MDRD) Af Amer 25 L, Est GFR (MDRD) Non-Af 21 L, BUN/Creatinine Ratio 18.3, Glucose 121 H, Calcium 9.4 09/13/22 22:15: Phosphorus 2.5, Magnesium 1.5 L 09/14/22 02:15: WBC 10.9, RBC 3.73 L, Hgb 12.0 L, Hct 34.7 L, MCV 93.0, MCH 32.2 H, MCHC 34.6, Plt Count 293, MPV 10.0, Immature Gran % (Auto) 1.700 H, Neut % (Auto) 60.6, Lymph % (Auto) 21.9, [place] % (Auto) 9.8, Eos % (Auto) 5.2 H, Baso % (Auto) 0.8, Absolute Neuts (auto) 6.6, Nucleated RBC % 0 09/14/22 02:15: Sodium 133 L, Potassium 3.4 L, Chloride 100, Carbon Dioxide 25.0, Anion Gap 8, BUN 58 H, Creatinine 3.10 H, Est GFR (MDRD) Af Amer 26 L, Est GFR (MDRD) Non-Af 21 L, BUN/Creatinine Ratio 18.7, Glucose 197 H, Calcium 8.6, Magnesium 1.9, Total Bilirubin 0.40 09/14/22 10:40: Sodium 135 L, Potassium 4.2, Chloride 98, Carbon Dioxide 27.0, Anion Gap 10, BUN 57 H, Creatinine 3.15 H, Est GFR (MDRD) Af Amer 25 L, Est GFR (MDRD) Non-Af 21 L, BUN/Creatinine Ratio 18.1, Glucose 188 H, Calcium 9.2, Magnesium 2.6 Rhythm: EKG: ECHO: Stress Test: Cardiac Cath: PCI: CT Surgery: Holter monitor: EPS: PPM: CXR: Chest CT Scan: Radiography Diagnostic Testing: Radiology Impression Chest X-Ray 09/13/22 19:32 IMPRESSION: No radiographic evidence of acute cardiopulmonary disease. Electronically Signed: Princess Olivas MD at 20:04 EDT , Lung Scan-VQ NM 09/14/22 09:00 IMPRESSION: 1. NORMAL 99m Tc MAA pulmonary perfusion imaging examination, according to PIOPED II interpretive criteria. (Sotsman et al, Radiology 246: 941, 2008 Sosujata et al, J Nucl Med 49: 1741, 2008). 2. Central clumping of the aerosol may be secondary to obstructive airway mechanics and or clinical tachypnea. Electronically Signed: Ambrosio Hebert, at 10:28 EDT ,
--- NOTE | 2022-09-14 14:41 | DS.PCM_ITS ---
Providers Date of Admission: 09/13/22 Date of Discharge: 09/14/22 Primary Care Physician: Dr. Eleuterio Abreu MD Consultations 09/14/22 00:37 Consult: Cardiology Routine Consulting Provider: Janene Swain Reason for Consult: VT EMERGENT Consult: No MD Notified: Yes Date Notified: 09/13/22 Time Notified: 23:29 Method of Notification: ED Physician Initiated Reason For Visit: SYNCOPE/VT Diagnosis Discharge Diagnosis (1) Wide-complex tachycardia: Status: Acute Code(s): R00.0 - Tachycardia, unspecified (2) Ischemic cardiomyopathy: Status: Acute Code(s): I25.5 - Ischemic cardiomyopathy (3) CKD (chronic kidney disease): Status: Chronic Code(s): N18.9 - Chronic kidney disease, unspecified (4) Coronary artery disease: Status: Acute Code(s): I25.10 - Atherosclerotic heart disease of [place] coronary artery without angina pectoris (5) Automatic implantable cardiac defibrillator in situ: Status: Chronic Code(s): Z95.810 - Presence of automatic (implantable) cardiac defibrillator Plan #Near syncope due to ventricular tachycardia * currently on amiodarone drip * 2D echo done this morning, read pending * ICD to be interrogated today * cardiology on board * PT.OT on board * fall precautions * troponins wre not elevated * on beta shanna * * #Elevated D dimer: couldnt have CTA of the chest on account of impaired kidney function. VQ scan ordered for today. #Hypokalemia: Potassium is 3.4. Will replace and trend. Check magnesium also. TO keep potassium >4 and Mg >2 #DANISH on CKD stage IV: * Cr is 3.1 today. basleine seeems to be ~ 2.5. * will hold off on aggressive hydration due to low EF * Metolazone and Lasix on hold. Will trend creatinine. #History of left apical thrombus * Used to be on Coumadin but was told that the clot had dissolved so Coumadin was stopped. * 2D echo pending. #Type 2 diabetes mellitus * On Lantus 5 units daily. Insulin sliding scale. Accu-Cheks ACHS. #CAD s/p stents * On high intensity statin, Imdur and Coreg as well as aspirin and icosapent * Patient allergic to statins hence his been on icosapent. * As 2D echo from February 2022 showed EF of 25% with severe segmental systolic dysfunction and moderate left atrial enlargement as well as mild right atrial enlargement. * Repeat 2D echo pending * #GERD: On Protonix #Leukocytosis: Resolved Total time spent on evaluation and management of patient, reviewing chart and specialist notes, discussing plan with patient, discussion with nursing and ancillary staff as well as documentation: 47 mins Medications at Discharge Home Medications rosuvastatin 10 mg tablet 10 mg PO QHS cholesterol 09/22/19 nitroglycerin 0.4 mg sublingual tablet (Nitrostat) 0.4 mg sublingual Q5M PRN Pain #25 tabs 07/22/20 aspirin 81 mg tablet,delayed release 81 mg PO DAILY@0800 HEALTH MAINTENANCE 08/25/20 albuterol sulfate 90 mcg/actuation aerosol inhaler 1 - 2 puff inhalation Q4H PRN PRN Shortness Of Breath ##1 08/26/20 furosemide 40 mg tablet 40 mg PO BID FLUID 03/09/21 icosapent ethyl 1 gram capsule (Vascepa) 1 g PO .COMPLEX CHOLESTEROL 08/29/21 pantoprazole 40 mg tablet,delayed release 40 mg PO DAILY #90 tabs 02/15/22 insulin degludec 100 unit/mL (3 mL) subcutaneous pen (Tresiba FlexTouch U-100 insulin) 5 unit subcut QHS 02/27/22 melatonin 3 mg tablet 3 mg PO QHS Insomnia 02/27/22 potassium chloride 20 mEq tablet,extended release 20 meq PO TID 02/27/22 carvedilol 12.5 mg tablet 12.5 mg PO BID #180 tabs 04/16/22 isosorbide mononitrate 30 mg tablet,extended release 24 hr 30 mg PO DAILY #90 tabs 04/23/22 metolazone 2.5 mg tablet 2.5 mg PO .COMPLEX #24 tabs 04/23/22 ranolazine 500 mg tablet,extended release,12 hr (Ranexa) 500 mg PO BID #180 tabs 08/30/22 Hospital Course Operations None Procedures 2-D Echocardiogram and - (pacemaker interrogation) Summary of Care Provided Minutes Spent on Discharge: 45 Hospital Course: Patient is a 72 y/o male with a PMH as outlined who was admitted via the ED on 09/14/2022 with a complaitn of lightheadedness. He did have a history of ischemic cardiomyopathy s/p ICD placement. 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 He hadnt noted any firing of his ICD. He had been feeling short of breath for about 2 weeks prior but denied any chest pain. He had a known EF of 15-25. On admission, D dimer was mildly elevated, but labs w ere otherwise unremarkable. EKG done was suspicious for ventricular tachyardia. He was also tachycardic on admission.Attempts were made to interrogate his pacemaker in the ED, but this was unsuccessful. He was started on amiodarone drip and admitted to the ICU. He was admitted and managed for presumptive ventricular tachycardia. Cardiology was consulted. He had 2D echo which showed...... he had his pacemaker interrogated on the morning of discharge and was not found to have any ventricular tachycardia was noted to have pacemaker mediated tachycardia with his settings changed by the device rep. Cardiology reviewed patient. He felt well and had no complaints. He remained stable and per cardiology recommendations, he was discharged home on 09/14/2022. The amiodarone drip was discontinued. He is follow-up with his primary care doctor and cardiology within 1 to 2 weeks. Patient seen and examined prior to discharge. He had no complaints and had an uneventful night. Review of systems otherwise negative. Labs and vitals reviewed. Home medication reviewed and reconciled. Physical Exam Const alert, oriented x3, no apparent distress, average body habitus and well nourished General Appearance: cooperative and comfortable Exam Limitations: no limitations HEENT normocephalic, head/scalp atraumatic, hearing grossly normal bilaterally and moist oral mucous membranes Mouth: oral and palatal mucosa normal Eyes PERRL, EOMs intact bilaterally and conjunctivae normal Neck no lymphadenopathy, supple, no JVD and no carotid bruits Lymph Lymphatic: no lymphadenopathy noted and no lymphedema noted Resp normal respiratory effort, normal air movement, no retractions, no use of accessory muscles and clear to auscultation bilaterally Auscultation: Negative for rales, rhonchi or wheezes Cardio regular rate, regular rhythm, S1 normal heart sound, S2 normal heart sound, no murmurs, no rub, no gallops, no clicks and no JVD GI normal to inspection, nondistended, normoactive bowel sounds, soft to palpation and non-tender Extremity normal to inspection, full ROM, normal capillary refill, no clubbing, cyanosis or edema and no calf tenderness Skin no rashes or lesions noted, no wounds, skin turgor normal, no jaundice, no petechiae and no mottling General Skin Exam: no breakdown Neuro oriented x3, CN's II-XII intact bilaterally, moves all extremities, no focal motor deficits, no sensory deficits noted and deep tendon reflexes 2+ bilaterally Speech: speech normal Motor Exam: strength 5/5 throughout Psych thought process normal, cooperative and affect normal Appearance: appropriate Weight / BMI Weight Weight: 182 lb 5.156 oz Body Mass Index (BMI) 24.7 ABG / Lab / Microbiology Data Result Diagrams: 09/14/22 02:15 09/14/22 10:40 Laboratory: Laboratory Results - last 24 hr 09/13/22 18:49: WBC 13.5 H, RBC 4.22 L, Hgb 13.8, Hct 39.4 L, MCV 93.4, MCH 32.7 H, MCHC 35.0, RDW Std Deviation 43.2, RDW Coeff of Jane 12.6, Plt Count 354, MPV 10.1, Immature Gran % (Auto) 1.300 H, Neut % (Auto) 65.3, Lymph % (Auto) 15.5 L, Swift % (Auto) 12.9 H, Eos % (Auto) 4.4, Baso % (Auto) 0.6, Absolute Neuts (auto) 8.8 H, Absolute Lymphs (auto) 2.09, Nucleated RBC % 0, Differential Comment SCANNED, Diff Path Review Reviewed 09/13/22 18:49: D-Dimer Quant (PE/DVT) 1.54 H* 09/13/22 18:49: Sodium 134 L, Potassium 3.8, Chloride 99, Carbon Dioxide 29.0, Anion Gap 6, BUN 58 H, Creatinine 3.17 H, Estim Creat Clear Calc 23.46, Est GFR (MDRD) Af Amer 25 L, Est GFR (MDRD) Non-Af 21 L, BUN/Creatinine Ratio 18.3, Glucose 121 H, Calcium 9.4, Troponin I High Sens 38 09/13/22 22:15: Troponin I High Sens 35 09/13/22 22:15: Phosphorus 2.5, Magnesium 1.5 L 09/14/22 02:15: WBC 10.9, RBC 3.73 L, Hgb 12.0 L, Hct 34.7 L, MCV 93.0, MCH 32.2 H, MCHC 34.6, RDW Std Deviation 43.6, RDW Coeff of Jane 12.7, Plt Count 293, MPV 10.0, Immature Gran % (Auto) 1.700 H, Neut % (Auto) 60.6, Lymph % (Auto) 21.9, Swift % (Auto) 9.8, Eos % (Auto) 5.2 H, Baso % (Auto) 0.8, Absolute Neuts (auto) 6.6, Absolute Lymphs (auto) 2.38, Nucleated RBC % 0 09/14/22 02:15: Sodium 133 L, Potassium 3.4 L, Chloride 100, Carbon Dioxide 25.0, Anion Gap 8, BUN 58 H, Creatinine 3.10 H, Estim Creat Clear Calc 23.99, Est GFR (MDRD) Af Amer 26 L, Est GFR (MDRD) Non-Af 21 L, BUN/Creatinine Ratio 18.7, Glucose 197 H, Calcium 8.6, Magnesium 1.9, Total Bilirubin 0.40, AST 10 L, ALT 11 L, Alkaline Phosphatase 58, Total Protein 6.3 L, Albumin 2.8 L, Globulin 3.5, Albumin/Globulin Ratio 0.8 L, TSH 0.84 09/14/22 02:15: Troponin I High Sens 32 09/14/22 07:34: POC Glucose 137 H 09/14/22 10:40: Sodium 135 L, Potassium 4.2, Chloride 98, Carbon Dioxide 27.0, Anion Gap 10, BUN 57 H, Creatinine 3.15 H, Estim Creat Clear Calc 23.61, Est GFR (MDRD) Af Amer 25 L, Est GFR (MDRD) Non-Af 21 L, BUN/Creatinine Ratio 18.1, Glucose 188 H, Calcium 9.2, Magnesium 2.6 09/14/22 11:53: POC Glucose 177 H Radiography Diagnostic Testing: Radiology Impression Chest X-Ray 09/13/22 19:32 IMPRESSION: No radiographic evidence of acute cardiopulmonary disease. Electronically Signed: Princess Olivas MD at 20:04 EDT , Lung Scan-VQ NM 09/14/22 09:00 IMPRESSION: 1. NORMAL 99m Tc MAA pulmonary perfusion imaging examination, according to PIOPED II interpretive criteria. (Sosujata et al, Radiology 246: 941, 2008 Sosujata et al, J Nucl Med 49: 1741, 2008). 2. Central clumping of the aerosol may be secondary to obstructive airway mechanics and or clinical tachypnea. Electronically Signed: Ambrosio Anup, at 10:28 EDT , D/C Instructions Discharge Diet: Low fat / Low cholesterol Discharge Activity: Return to Normal Activity Weight Bearing Status: Weight bearing as tolerated Call your doctor if you observe: Fever of 101 or Higher, Shortness of breath, Dizziness, Fainting spells, Swelling in the ankles and Chest pain Meaningful Use Info Meaningful Use Diagnoses (Choose all that apply): None applicable Discharge Plan Admission Admit Date/Time: 09/13/22 23:23 Primary Reason for Your Visit: near syncope Attending Provider: Lida Chen Primary Care Provider: Eleuterio Abreu Chi Consulting Providers: Janene Swain ; Afshan Lai Discharge Orders/Prescriptions Prescriptions: Continued melatonin 3 mg tablet 3 mg PO QHS potassium chloride 20 mEq tablet extended release 20 meq PO TID aspirin 81 MG tablet 81 mg PO DAILY@0800 albuterol sulfate 1 INHALER inhaler 1 - 2 puff INHALATION Q4H PRN PRN (Reason: Shortness Of Breath) Qty: 1 0RF icosapent ethyl [Vascepa] 1 gram capsule 1 g PO .COMPLEX Rx Instructions: 1 g PO Take 1 capsule AM, 2 capsules PM; Tresiba FlexTouch U-100 100 unit/mL (3 mL) insulin pen 5 unit SUBCUT QHS Label Comments: TAKE 10 UNITS SUBCUTANEOUSLY ONCE PER DAY FOR 90 DAYS rosuvastatin 10 mg tablet 10 mg PO QHS nitroglycerin [Nitrostat] 0.4 mg tablet, sublingual 0.4 mg SL Q5M PRN (Reason: Pain) Qty: 25 3RF furosemide 40 mg tablet 40 mg PO BID pantoprazole 40 mg tablet,delayed release (DR/EC) 40 mg PO DAILY Qty: 90 3RF carvedilol 12.5 mg tablet 12.5 mg PO BID Qty: 180 3RF isosorbide mononitrate 30 mg tablet extended release 24 hr 30 mg PO DAILY Qty: 90 3RF metolazone 2.5 mg tablet 2.5 mg PO .COMPLEX Qty: 24 3RF Rx Instructions: 2.5 mg PO 1 tab on Saturday and ; ranolazine [Ranexa] 500 mg tablet extended release 12 hr 500 mg PO BID Qty: 180 3RF Referrals / Follow Up: Janene Swain MD [Med Staff - Active Staff] - Within 2 Weeks Eleuterio Abreu Chi, MD [Primary Care Provider] - Within 2 Weeks Disposition Disposition (needs filled in before D/C Order can be placed): Home, Self Care Charges/Coding Visit Charges Inpatient E&M: 27710 Disch Hosp >30min
== END 2022-09-14 16:00 | disposition home or self-care (01) | DRG 309 ==
LOC: ED 22:36 → ICU 09-14 07:12
PROVIDERS: Admitting Provider Internal Medicine; Emergency Provider Emergency Medicine; PCP Family Medicine Geriatric Medicine; Visit Provider Student in an Organized Health Care Education/Training Program
DX: I47.20 Ventricular tachycardia, unspecified (principal); N18.4 Chronic kidney disease, stage 4 (severe); N17.9 Acute kidney failure, unspecified; E11.22 Type 2 diabetes mellitus with diabetic chronic kidney disease; E11.40 Type 2 diabetes mellitus with diabetic neuropathy, unspecified; D72.821 Monocytosis (symptomatic); E78.00 Pure hypercholesterolemia, unspecified; I25.10 Atherosclerotic heart disease of native coronary artery without angina pectoris; F17.200 Nicotine dependence, unspecified, uncomplicated; I25.5 Ischemic cardiomyopathy; I34.0 Nonrheumatic mitral (valve) insufficiency; K21.9 Gastro-esophageal reflux disease without esophagitis; E78.5 Hyperlipidemia, unspecified; E87.6 Hypokalemia; I12.9 Hypertensive chronic kidney disease with stage 1 through stage 4 chronic kidney disease, or unspecified chronic kidney disease; Z95.5 Presence of coronary angioplasty implant and graft; Z95.810 Presence of automatic (implantable) cardiac defibrillator; Z66 Do not resuscitate; Z79.82 Long term (current) use of aspirin
CPT/HCPCS: 71046; 78582; 80048; 80053; 82962; 83735; 84100; 84443; 84484; 85025; 85379; 93005; 93306; 94668; 99252; 99285; A9540; A9567; Q9957; A4216; C8929; G0463

== ENCOUNTER → 2022-09-20 | Outpatient (CLI) | payer MEDICARE, OTHER, SELFPAY ==
[2020-02-18 06:00] VITALS: BMI 28.0
[2022-09-20 15:18] LABS: Hematocrit 37.8 % (40-54); Hemoglobin 13.1 g/dL (13.0-16.5); Mean Corp Hgb Conc 34.7 g/dL (32-36); Mean Corpuscular Hgb 32.6 pg (27.0-32.0); Mean Platelet Vol. 9.8 fl (6.2-12.0); Platelet Count 294 K/mm3 (150-450); RBC Distribution Width SD 44.7 fl (35.1-43.9); Red Blood Count 4.02 M/mm3 (4.6-6.2); White Blood Count 10.6 K/mm3 (4.4-11.0)
[2022-09-20 15:34] LABS: Albumin, Serum 3.5 g/dL (3.2-5.0); BUN 58 mg/dL (7-18); Calcium,Total 9.1 mg/dL (8.5-10.1); Chloride 104 mmol/L (98-107); Creatinine, Serum 3.06 mg/dL (0.70-1.30); EST Glomerular Filtration Rate 22 mL/min (>60); Est Glom Filt Rate - Afr Amer 26 mL/min (>60); Glucose 143 mg/dL (74-106); Phosphorus 2.7 mg/dL (2.5-4.9); Potassium 4.2 mmol/L (3.5-5.1); Sodium Level 135 mmol/L (136-145)
[2022-09-21 07:46] LABS: PTHIN 205.5 pg/mL (18.4-80.1)
== END | disposition home or self-care (01) ==
LOC: LAB 14:54
PROVIDERS: PCP Family Medicine Geriatric Medicine; Referring Provider Internal Medicine Nephrology; Visit Provider Internal Medicine Nephrology
DX: N25.81 Secondary hyperparathyroidism of renal origin (principal); N18.4 Chronic kidney disease, stage 4 (severe)
CPT/HCPCS: 36415; 80069; 83970; 85027

== ENCOUNTER → 2022-09-25 | Outpatient (CLI) | payer MEDICARE, OTHER, SELFPAY ==
[2020-02-18 06:00] VITALS: BMI 28.0
[2022-09-25 13:10] LABS: Absolute Lymphocyte Count 1.96 X10^3/uL (0.83-4.51); Absolute Neutrophil Count 7.5 X10^3/uL (2.0-7.7); Basophil# 0.08 X10^3/uL; Basophil% 0.7 % (0-1); Eosinophil# 0.41 X10^3/uL; Eosinophils% 3.6 % (0-5); Hematocrit 43.9 % (40-54); Hemoglobin 14.7 g/dL (13.0-16.5); Lymphocyte # 1.96 X10^3/ul (0.83-4.51); Lymphocyte % 17.1 % (19-41); Mean Corp Hgb Conc 33.5 g/dL (32-36); Mean Corpuscular Hgb 31.8 pg (27.0-32.0); Mean Platelet Vol. 10.6 fl (6.2-12.0); Monocyte# 1.43 X10^3/uL; Monocyte% 12.5 % (0-10); NRBC Flagged by Analyzer 0 % (0-5); Neutrophil # 7.48 X10^3/uL (2.7-7.7); Neutrophil % 65.1 % (47-70); Platelet Count 246 K/mm3 (150-450); RBC Distribution Width CV 13.2 % (11.6-14.6); Red Blood Count 4.62 M/mm3 (4.6-6.2); White Blood Count 11.5 K/mm3 (4.4-11.0)
[2022-09-25 13:28] LABS: Vitamin D,25 Hydroxy 27.7 ng/mL
[2022-09-25 13:45] LABS: ALB/GLOB Ratio 1.1 RATIO (0.9-2.4); AST(SGOT) 10 U/L (15-37); Alanine Aminotransfer ALT/SGPT 18 U/L (16-61); Albumin, Serum 3.9 g/dL (3.2-5.0); Alkaline Phosphatase 76 U/L (45-117); Anion Gap 7 (5-15); BUN 55 mg/dL (7-18); BUN/Creat Ratio 17.2 RATIO (10-20); Calcium,Total 9.3 mg/dL (8.5-10.1); Chloride 99 mmol/L (98-107); Creatinine, Serum 3.19 mg/dL (0.70-1.30); EST Glomerular Filtration Rate 21 mL/min (>60); Est Glom Filt Rate - Afr Amer 25 mL/min (>60); Globulin 3.7 g/dL (2.2-4.2); Glucose 175 mg/dL (74-106); Potassium 3.9 mmol/L (3.5-5.1); Protein, Total 7.6 g/dL (6.4-8.2); Sodium Level 135 mmol/L (136-145); Thyroid Stim Hormone (TSH) 3.29 uIU/mL (0.358-3.74)
== END | disposition home or self-care (01) ==
LOC: POLAB3 09:56
PROVIDERS: PCP Family Medicine Geriatric Medicine; Visit Provider Family Medicine Geriatric Medicine
DX: E55.9 Vitamin D deficiency, unspecified (principal); E11.65 Type 2 diabetes mellitus with hyperglycemia; R53.83 Other fatigue
CPT/HCPCS: 36415; 80053; 82306; 84443; 85025

== ENCOUNTER → 2022-10-10 | Outpatient (CLI) | payer MEDICARE, OTHER, SELFPAY ==
[2020-02-18 06:00] VITALS: BMI 28.0
--- NOTE | 2022-10-10 08:56 | AAAS_ITS ---
Reason For Study: AAA Aorta Measurements Aorta Doppler Measurements Proximal aorta measures4.23 x 4.28cm. in cross- Peak systolic flow velocities within the proximal sectional axis. aorta measure 79.6 cm/sec. Proximal aorta measures4.27cm. in longitudinal Peak systolic flow velocities within the mid aorta axis. measure 66.9 cm/sec. Mid aorta measures4.52 x 4.58cm. in cross- Peak systolic flow velocities within the distal sectional axis. aorta measure 57.8 cm/sec. Mid aorta measures4.56cm. in longitudinal axis. Distal aorta measures3.99 x 3.97cm. in cross- sectional axis. Distal aorta measures4.13cm. in longitudinal axis. Left Iliac Artery Left iliac artery measures 1.38 x 1.46 cm. in the cross-sectional axis. Left iliac artery measures 1.37 cm. in the longitudinal axis. Peak systolic velocity in the left iliac artery measures 59.6 cm/sec. Right Iliac Artery Right iliac artery measures 1.76 x 1.73 cm. in the cross-sectional axis. Right iliac artery measures 1.76 cm. in the longitudinal axis. Peak systolic velocity in the right iliac artery measures 41.5 cm/sec. Procedure Aorta IVC Iliac vasculature or bypass grafts 26063. Technically difficult due to bowle gas and patient unable to tolerate probe pressure. Exam performed in department. VL/AAA Screening Interpretation Summary Aorta patent, 4.58 cm aneurysm present Right iliac artery patent, 1.76 cm ectasia present Left iliac artery patent, 1.46 cm ectasia present Ordering Physician: Eleuterio Abreu Chi Referring Physician: Eleuterio Abreu Chi Performed By: Anette Callahan RVT
== END | disposition home or self-care (01) ==
LOC: CVS 08:54
PROVIDERS: PCP Family Medicine Geriatric Medicine; Referring Provider Family Medicine Geriatric Medicine; Visit Provider Family Medicine Geriatric Medicine
DX: I71.40 Abdominal aortic aneurysm, without rupture, unspecified (principal)
CPT/HCPCS: 76706

== ENCOUNTER → 2022-10-12 | Outpatient (CLI) | payer MEDICARE, OTHER, SELFPAY ==
[2020-02-18 06:00] VITALS: BMI 28.0
[2022-10-12 13:40] LABS: Anion Gap 5 (5-15); BUN 32 mg/dL (7-18); BUN/Creat Ratio 14.9 RATIO (10-20); Chloride 108 mmol/L (98-107); Creatinine, Serum 2.15 mg/dL (0.70-1.30); EST Glomerular Filtration Rate 32 mL/min (>60); Est Glom Filt Rate - Afr Amer 39 mL/min (>60); Glucose 140 mg/dL (74-106); Potassium 4.6 mmol/L (3.5-5.1); Sodium Level 143 mmol/L (136-145)
== END | disposition home or self-care (01) ==
LOC: POLAB3 09:54
PROVIDERS: PCP Family Medicine Geriatric Medicine; Visit Provider Family Medicine Geriatric Medicine
DX: I50.22 Chronic systolic (congestive) heart failure (principal)
CPT/HCPCS: 36415; 80048

== ENCOUNTER → 2022-12-27 | Outpatient (CLI) | payer MEDICARE, OTHER, SELFPAY ==
[2020-02-18 06:00] VITALS: BMI 28.0
[2022-12-27 16:44] LABS: Absolute Lymphocyte Count 1.71 X10^3/uL (0.83-4.51); Absolute Neutrophil Count 5.3 X10^3/uL (2.0-7.7); Basophil# 0.05 X10^3/uL; Basophil% 0.6 % (0-1); Eosinophils% 2.5 % (0-5); Hematocrit 38.6 % (40-54); Lymphocyte # 1.71 X10^3/ul (0.83-4.51); Lymphocyte % 21.2 % (19-41); Mean Corp Hgb Conc 33.7 g/dL (32-36); Mean Corpuscular Hgb 31.8 pg (27.0-32.0); Mean Corpuscular Volume 94.4 fL (80-94); Mean Platelet Vol. 11.1 fl (6.2-12.0); Monocyte# 0.75 X10^3/uL; Monocyte% 9.3 % (0-10); NRBC Flagged by Analyzer 0 % (0-5); Neutrophil # 5.28 X10^3/uL (2.7-7.7); Neutrophil % 65.5 % (47-70); Platelet Count 162 K/mm3 (150-450); RBC Distribution Width CV 14.3 % (11.6-14.6); RBC Distribution Width SD 49.9 fl (35.1-43.9); Red Blood Count 4.09 M/mm3 (4.6-6.2); White Blood Count 8.1 K/mm3 (4.4-11.0)
[2022-12-27 17:03] LABS: Vitamin D,25 Hydroxy 37.5 ng/mL
[2022-12-27 17:04] LABS: AST(SGOT) 8 U/L (15-37); Alanine Aminotransfer ALT/SGPT 13 U/L (16-61); Albumin, Serum 3.4 g/dL (3.2-5.0); Alkaline Phosphatase 71 U/L (45-117); Anion Gap 5 (5-15); BUN 36 mg/dL (7-18); BUN/Creat Ratio 15.1 RATIO (10-20); Calcium,Total 8.5 mg/dL (8.5-10.1); Chloride 108 mmol/L (98-107); Creatinine, Serum 2.39 mg/dL (0.70-1.30); EST Glomerular Filtration Rate 29 mL/min (>60); Est Glom Filt Rate - Afr Amer 35 mL/min (>60); Globulin 3.3 g/dL (2.2-4.2); Glucose 132 mg/dL (74-106); Protein, Total 6.7 g/dL (6.4-8.2); Sodium Level 141 mmol/L (136-145); Thyroid Stim Hormone (TSH) 1.43 uIU/mL (0.358-3.74)
== END | disposition home or self-care (01) ==
PROVIDERS: PCP Family Medicine Geriatric Medicine; Visit Provider Internal Medicine Nephrology
DX: N18.4 Chronic kidney disease, stage 4 (severe) (principal); E11.22 Type 2 diabetes mellitus with diabetic chronic kidney disease
CPT/HCPCS: 36415; 80053; 82306; 84443; 85025

== ENCOUNTER → 2023-01-14 | Outpatient (CLI) | payer MEDICARE, OTHER, SELFPAY ==
[2020-02-18 06:00] VITALS: BMI 28.0
[2023-01-14 17:56] LABS: Absolute Lymphocyte Count 1.75 X10^3/uL (0.83-4.51); Absolute Neutrophil Count 6.6 X10^3/uL (2.0-7.7); Basophil# 0.06 X10^3/uL; Basophil% 0.6 % (0-1); Eosinophil# 0.24 X10^3/uL; Eosinophils% 2.5 % (0-5); Hematocrit 39.1 % (40-54); Hemoglobin 13.7 g/dL (13.0-16.5); Lymphocyte # 1.75 X10^3/ul (0.83-4.51); Lymphocyte % 18.2 % (19-41); Mean Corpuscular Hgb 32.1 pg (27.0-32.0); Mean Corpuscular Volume 91.6 fL (80-94); Mean Platelet Vol. 10.8 fl (6.2-12.0); Monocyte# 0.87 X10^3/uL; Monocyte% 9.1 % (0-10); NRBC Flagged by Analyzer 0 % (0-5); Neutrophil # 6.59 X10^3/uL (2.7-7.7); Neutrophil % 68.8 % (47-70); Platelet Count 199 K/mm3 (150-450); RBC Distribution Width SD 47.2 fl (35.1-43.9); Red Blood Count 4.27 M/mm3 (4.6-6.2); White Blood Count 9.6 K/mm3 (4.4-11.0)
[2023-01-14 18:15] LABS: Albumin, Serum 3.5 g/dL (3.2-5.0); BUN 66 mg/dL (7-18); BUN/Creat Ratio 22.1 RATIO (10-20); Calcium,Total 8.9 mg/dL (8.5-10.1); Chloride 107 mmol/L (98-107); Creatinine, Serum 2.98 mg/dL (0.70-1.30); EST Glomerular Filtration Rate 22 mL/min (>60); Est Glom Filt Rate - Afr Amer 27 mL/min (>60); Glucose 160 mg/dL (74-106); Magnesium 1.8 mg/dL (1.6-2.6); Potassium 3.6 mmol/L (3.5-5.1); Sodium Level 139 mmol/L (136-145)
== END | disposition home or self-care (01) ==
LOC: POLAB3 15:28
PROVIDERS: PCP Family Medicine Geriatric Medicine; Visit Provider Family Medicine Geriatric Medicine
DX: N18.4 Chronic kidney disease, stage 4 (severe) (principal)
CPT/HCPCS: 36415; 80069; 83735; 85025

== ENCOUNTER → 2023-01-29 | Outpatient (CLI) | payer MEDICARE, OTHER, SELFPAY ==
[2020-02-18 06:00] VITALS: BMI 28.0
[2023-01-29 15:22] LABS: Absolute Lymphocyte Count 1.86 X10^3/uL (0.83-4.51); Absolute Neutrophil Count 6.5 X10^3/uL (2.0-7.7); Basophil# 0.05 X10^3/uL; Basophil% 0.5 % (0-1); Hematocrit 39.8 % (40-54); Hemoglobin 13.5 g/dL (13.0-16.5); Lymphocyte # 1.86 X10^3/ul (0.83-4.51); Lymphocyte % 18.9 % (19-41); Mean Corp Hgb Conc 33.9 g/dL (32-36); Mean Corpuscular Hgb 31.8 pg (27.0-32.0); Mean Corpuscular Volume 93.9 fL (80-94); Monocyte# 1.16 X10^3/uL; Monocyte% 11.8 % (0-10); NRBC Flagged by Analyzer 0 % (0-5); Neutrophil # 6.45 X10^3/uL (2.7-7.7); Neutrophil % 65.6 % (47-70); Platelet Count 174 K/mm3 (150-450); RBC Distribution Width SD 47.5 fl (35.1-43.9); Red Blood Count 4.24 M/mm3 (4.6-6.2); White Blood Count 9.8 K/mm3 (4.4-11.0)
[2023-01-29 15:34] LABS: Anion Gap 9 (5-15); BUN 74 mg/dL (7-18); BUN/Creat Ratio 22.6 RATIO (10-20); Calcium,Total 8.8 mg/dL (8.5-10.1); Chloride 105 mmol/L (98-107); Creatinine, Serum 3.27 mg/dL (0.70-1.30); EST Glomerular Filtration Rate 20 mL/min (>60); Est Glom Filt Rate - Afr Amer 24 mL/min (>60); Glucose 134 mg/dL (74-106); Sodium Level 139 mmol/L (136-145)
== END | disposition home or self-care (01) ==
LOC: POLAB3 14:53
PROVIDERS: PCP Family Medicine Geriatric Medicine; Visit Provider Family Medicine Geriatric Medicine
DX: I50.20 Unspecified systolic (congestive) heart failure (principal)
CPT/HCPCS: 36415; 80048; 85025

== ENCOUNTER → 2023-02-06 | Outpatient (CLI) | payer MEDICARE, OTHER, SELFPAY ==
[2020-02-18 06:00] VITALS: BMI 28.0
[2023-02-06 15:11] LABS: Anion Gap 6 (5-15); BUN 36 mg/dL (7-18); BUN/Creat Ratio 15.5 RATIO (10-20); Calcium,Total 8.9 mg/dL (8.5-10.1); Chloride 109 mmol/L (98-107); Creatinine, Serum 2.32 mg/dL (0.70-1.30); EST Glomerular Filtration Rate 30 mL/min (>60); Est Glom Filt Rate - Afr Amer 36 mL/min (>60); Glucose 108 mg/dL (74-106); Potassium 4.4 mmol/L (3.5-5.1); Sodium Level 140 mmol/L (136-145)
== END | disposition home or self-care (01) ==
LOC: POLAB3 13:30
PROVIDERS: PCP Family Medicine Geriatric Medicine; Visit Provider Family Medicine Geriatric Medicine
DX: N18.4 Chronic kidney disease, stage 4 (severe) (principal)
CPT/HCPCS: 36415; 80048

== ENCOUNTER → 2023-02-12 | Outpatient (CLI) | payer MEDICARE, OTHER, SELFPAY ==
[2020-02-18 06:00] VITALS: BMI 28.0
[2023-02-12 15:20] LABS: Absolute Lymphocyte Count 1.55 X10^3/uL (0.83-4.51); Absolute Neutrophil Count 6.7 X10^3/uL (2.0-7.7); Basophil# 0.05 X10^3/uL; Basophil% 0.5 % (0-1); Eosinophil# 0.19 X10^3/uL; Eosinophils% 1.9 % (0-5); Hematocrit 36.9 % (40-54); Hemoglobin 12.6 g/dL (13.0-16.5); Lymphocyte # 1.55 X10^3/ul (0.83-4.51); Lymphocyte % 15.8 % (19-41); Mean Corp Hgb Conc 34.1 g/dL (32-36); Mean Corpuscular Hgb 32.6 pg (27.0-32.0); Mean Corpuscular Volume 95.3 fL (80-94); Monocyte# 1.19 X10^3/uL; Monocyte% 12.1 % (0-10); NRBC Flagged by Analyzer 0 % (0-5); Neutrophil # 6.73 X10^3/uL (2.7-7.7); Neutrophil % 68.4 % (47-70); Platelet Count 160 K/mm3 (150-450); RBC Distribution Width CV 14.5 % (11.6-14.6); RBC Distribution Width SD 50.3 fl (35.1-43.9); Red Blood Count 3.87 M/mm3 (4.6-6.2); White Blood Count 9.8 K/mm3 (4.4-11.0)
[2023-02-12 15:47] LABS: Anion Gap 4 (5-15); BUN 29 mg/dL (7-18); Calcium,Total 8.3 mg/dL (8.5-10.1); Chloride 113 mmol/L (98-107); Creatinine, Serum 2.23 mg/dL (0.70-1.30); EST Glomerular Filtration Rate 31 mL/min (>60); Est Glom Filt Rate - Afr Amer 38 mL/min (>60); Glucose 122 mg/dL (74-106); Potassium 4.4 mmol/L (3.5-5.1); Sodium Level 142 mmol/L (136-145)
== END | disposition home or self-care (01) ==
LOC: POLAB3 14:24
PROVIDERS: PCP Family Medicine Geriatric Medicine; Visit Provider Family Medicine Geriatric Medicine
DX: N18.4 Chronic kidney disease, stage 4 (severe) (principal)
CPT/HCPCS: 36415; 80048; 85025

== ENCOUNTER → 2023-02-19 | Outpatient (CLI) | payer MEDICARE, OTHER, SELFPAY ==
[2020-02-18 06:00] VITALS: BMI 28.0
--- NOTE | 2023-02-19 14:16 | RAD_ITS ---
STUDY: X-RAY CHEST REASON FOR EXAM: Male, 72 years old. SOB TECHNIQUE: PA and lateral views of the chest. COMPARISON: Comparison is made with prior study September 13, 2022. FINDINGS: The lungs are clear and expanded. Stable elevation of the right hemidiaphragm. There is no demonstrated pleural abnormality. Normal size heart. A right-sided dual-chamber pacemaker is seen. Normal mediastinum and azra. Normal visualized pulmonary arteries. There is atherosclerotic calcification of the aortic arch with tortuosity. There are diffuse degenerative changes of the visualized thoracic spine. Normal visualized ribs, clavicles, and shoulders. There is no demonstrated abnormality of the visualized soft tissue structures of the upper abdomen. RAD/Chest PA and Lateral IMPRESSION: No acute abnormality is seen. Electronically Signed: Keenan Gardner MD at 15:19 EDT ,
[2023-02-19 15:10] LABS: Absolute Lymphocyte Count 0.84 X10^3/uL (0.83-4.51); Absolute Neutrophil Count 8.8 X10^3/uL (2.0-7.7); Basophil# 0.04 X10^3/uL; Basophil% 0.4 % (0-1); Eosinophil# 0.23 X10^3/uL; Eosinophils% 2.1 % (0-5); Hematocrit 36.5 % (40-54); Hemoglobin 11.8 g/dL (13.0-16.5); Lymphocyte # 0.84 X10^3/ul (0.83-4.51); Lymphocyte % 7.5 % (19-41); Mean Corp Hgb Conc 32.3 g/dL (32-36); Mean Corpuscular Hgb 31.8 pg (27.0-32.0); Mean Corpuscular Volume 98.4 fL (80-94); Mean Platelet Vol. 11.3 fl (6.2-12.0); Monocyte# 1.15 X10^3/uL; Monocyte% 10.3 % (0-10); NRBC Flagged by Analyzer 0 % (0-5); Neutrophil # 8.81 X10^3/uL (2.7-7.7); Neutrophil % 79.2 % (47-70); Platelet Count 156 K/mm3 (150-450); RBC Distribution Width CV 14.4 % (11.6-14.6); RBC Distribution Width SD 51.8 fl (35.1-43.9); Red Blood Count 3.71 M/mm3 (4.6-6.2); White Blood Count 11.1 K/mm3 (4.4-11.0)
[2023-02-19 15:59] LABS: Anion Gap 6 (5-15); BUN 36 mg/dL (7-18); BUN/Creat Ratio 17.6 RATIO (10-20); Chloride 109 mmol/L (98-107); Creatinine, Serum 2.05 mg/dL (0.70-1.30); EST Glomerular Filtration Rate 34 mL/min (>60); Est Glom Filt Rate - Afr Amer 41 mL/min (>60); Glucose 105 mg/dL (74-106); Potassium 4.3 mmol/L (3.5-5.1); Sodium Level 141 mmol/L (136-145)
[2023-02-19 16:12] LABS: BNP,B-Type NATRIURETIC PEPTIDE 1713.5 pg/mL (0-100)
== END | disposition home or self-care (01) ==
PROVIDERS: PCP Family Medicine Geriatric Medicine; Referring Provider Family Medicine Geriatric Medicine; Visit Provider Family Medicine Geriatric Medicine
DX: N18.4 Chronic kidney disease, stage 4 (severe) (principal); R06.02 Shortness of breath; J98.8 Other specified respiratory disorders
CPT/HCPCS: 36415; 71046; 80048; 83880; 85025

== ENCOUNTER → 2023-02-20 | Outpatient (CLI) | payer MEDICARE, OTHER, SELFPAY ==
[2020-02-18 06:00] VITALS: BMI 28.0
== END | disposition home or self-care (01) ==
LOC: PSN 09:16
PROVIDERS: PCP Family Medicine Geriatric Medicine; Referring Provider Family Medicine Geriatric Medicine; Visit Provider Family Medicine Geriatric Medicine
DX: R68.83 Chills (without fever) (principal)
CPT/HCPCS: 87635; 87804; 87807; C9803

== ENCOUNTER → 2023-04-04 | Outpatient (CLI) | payer MEDICARE, OTHER, SELFPAY ==
[2020-02-18 06:00] VITALS: BMI 28.0
[2023-04-04 11:57] LABS: Absolute Neutrophil Count 4.8 X10^3/uL (2.0-7.7); Basophil# 0.04 X10^3/uL; Basophil% 0.5 % (0-1); Eosinophil# 0.12 X10^3/uL; Eosinophils% 1.6 % (0-5); Lymphocyte % 17.8 % (19-41); Mean Corp Hgb Conc 32.5 g/dL (32-36); Mean Corpuscular Hgb 31.9 pg (27.0-32.0); Mean Platelet Vol. 10.6 fl (6.2-12.0); Monocyte# 0.89 X10^3/uL; Monocyte% 12.2 % (0-10); NRBC Flagged by Analyzer 0 % (0-5); Neutrophil # 4.82 X10^3/uL (2.7-7.7); Neutrophil % 66.3 % (47-70); Platelet Count 169 K/mm3 (150-450); RBC Distribution Width SD 50.3 fl (35.1-43.9); Red Blood Count 4.08 M/mm3 (4.6-6.2); White Blood Count 7.3 K/mm3 (4.4-11.0)
[2023-04-04 12:11] LABS: Vitamin D,25 Hydroxy 31.2 ng/mL
[2023-04-04 12:17] LABS: ALB/GLOB Ratio 1.1 RATIO (0.9-2.4); AST(SGOT) 8 U/L (15-37); Alanine Aminotransfer ALT/SGPT 18 U/L (16-61); Albumin, Serum 3.7 g/dL (3.2-5.0); Alkaline Phosphatase 69 U/L (45-117); Anion Gap 6 (5-15); BUN 27 mg/dL (7-18); BUN/Creat Ratio 12.4 RATIO (10-20); Chloride 104 mmol/L (98-107); Creatinine, Serum 2.17 mg/dL (0.70-1.30); EST Glomerular Filtration Rate 32 mL/min (>60); Est Glom Filt Rate - Afr Amer 39 mL/min (>60); Globulin 3.4 g/dL (2.2-4.2); Glucose 135 mg/dL (74-106); Protein, Total 7.1 g/dL (6.4-8.2); Sodium Level 139 mmol/L (136-145); Thyroid Stim Hormone (TSH) 1.43 uIU/mL (0.358-3.74)
== END | disposition home or self-care (01) ==
LOC: POLAB3 10:42
PROVIDERS: PCP Family Medicine Geriatric Medicine; Visit Provider Family Medicine Geriatric Medicine
DX: E11.65 Type 2 diabetes mellitus with hyperglycemia (principal); R53.83 Other fatigue; E55.9 Vitamin D deficiency, unspecified
CPT/HCPCS: 36415; 80053; 82306; 84443; 85025

== ENCOUNTER → 2023-07-04 | Outpatient (CLI) | payer MEDICARE, OTHER, SELFPAY ==
[2020-02-18 06:00] VITALS: BMI 28.0
--- OUTSIDE RECORDS SUMMARY | 2023-07-04 11:34 | XMS RPT_ITS | CCD ---
Author Name Unknown Address [address] [place] [address] Organization [facility] Care Team Providers Care Cork Floor Installer Name Role Phone MISHA LANDRY Unavailable Unavailable MISHA LANDRY Unavailable Unavailable Pcp, No Primary Care Provider Unavailabl e Allergies Allergy Classification Reported Allergen(s) Allergy Type Date of Onset Reaction(s) Facility (1 source) Penicillins Propensity to adverse reactions 5 [facility] Work Phone: (1 source) Sulfonamides (Antibiotic) Propensity to adverse reactions 5 [facility] Work Phone: Medications Completed/Discontinued Medications Medication Drug Class(es) Dates Sig (Normalized) Sig (Original) acetaminophen 500 mg / HYDROcodone bitartrate 5 mg oral tablet (1 source) Opioid Agonist Start: 01-21-2013 take 1-2 tablets by mouth every four hours for pain acetaminophen-HYD ROcodone (VICODIN) 5-500 mg tablet Take 1-2 tablets by mouth every 4 hours. FOR PAIN 30 tablet 0 01/21/2013 Active Problems Active Problems Problem Classification Problem Date Documented Date Episodic/Chronic Coronary atherosclerosis and other heart disease (2 sources) Atherosclerotic heart disease of [place] coronary artery without angina pectoris; Translations: [ATHSCL HEART DISEASE OF [place] CORONARY ARTERY W/O ANG PCTRS] Onset: 12-17-2016 Chronic Diabetes mellitus without complication (2 sources) Type 2 diabetes mellitus without complications; Translations: [TYPE 2 DIABETES MELLITUS WITHOUT COMPLICATIONS] Onset: 12-17-2016 Chronic Essential hypertension (3 sources) Essential (primary) hypertension; Translations: [Essential hypertension] Onset: 04-11-2005 11-05-2008 Chronic Other male genital disorders (1 source) Secondary erectile dysfunction; Translations: [Male erectile dysfunction, unspecified] Onset: 11-05-2008 11-05-2008 Chronic Other nervous system disorders (1 source) Disorder of the peripheral nervous system; Translations: [Hereditary and idiopathic neuropathy, unspecified] Onset: 04-04-2007 04-04-2007 Chronic Other nervous system disorders (1 source) Carpal tunnel syndrome; Translations: [Carpal tunnel syndrome, unspecified upper limb] Onset: 11-11-2007 11-11-2007 Chronic Substance-related disorders (2 sources) Nicotine dependence, unspecified, uncomplicated; Translations: [Tobacco user] Onset: 11-05-2008 11-05-2008 Chronic Past or Other Problems Problem Classification Problem Date Documented Da te Episodic/Chronic Abdominal hernia (1 source) Left inguinal hernia ; Translations: [Unilateral inguinal hernia, without obstruction or gangrene, not specified as recurrent] Onset: 01-20-2013 01-20-2013 Episodic Other gastrointestinal disorders (1 source) Dysphagia; Translations: [Dysphagia] Onset: 09-18-2005 09-18-2005 Episodic Unclassified (1 source) Body mass index (BMI) 29.0-29.9, adult; Translations: [BODY MASS INDEX (BMI) 29.0-29.9, ADULT] Onset: 12-17-2016 Episodic Results Test Name Value Interpretation Reference Range Facil ity Encounters Encounter Date Encounter Type Care Provider Facility Start: 03-10-2021 End: 03-10-2021 Telephone encounter Niko Doshi MD Work Phone: Cardiology Plan of Treatment Date Care Activity Detail Author Start: 02-08-2021 Influenza vaccination INFLUENZA (#1) [facility] Start: 2016 ADVANCE DIRECTIVE DISCUSSION ADVANCE DIRECTIVE DISCUSSION [facility] Start: 2016 PNEUMOVAX AGE 65 AND OVER WITH 5YR LOOKBACK (#1) PNEUMOVAX AGE 65 AND OVER WITH 5YR LOOKBACK (#1) [facility] Start: 05-12-2016 DIABETES SCREEN DIABETES SCREEN [facility] Start: 09-07-2011 LIPID SCREEN LIPID SCREEN [facility] Start: 2001 SHINGRIX VACCINE (1 of 2) SHINGRIX V ACCINE (1 of 2) [facility] Start: 1996 COLOGUARD (FIT-DNA) COLOGUARD (FIT-D NA) [facility] Start: 1996 Colonoscopy COLONOSCOPY [facility] Start: [address] COLONOGRAPHY [facility] Start: 1996 FECAL OCCULT BLOOD FECAL OCCULT BLOO D [facility] Start: 1996 Screening for malign ant neoplasm of colon COLORECTAL CANCER SCREENING [facility] Start: 1996 SIGMOIDOSCOPY SIGMOIDOSCOPY Cleamanda price [facility] Start: 1970 Urine microalbumin profile DTAP,TDAP ,TD (1 - Tdap) [facility] Start: 1969 HEPATITIS C SCREENING HEPATITIS C SC REENING [facility] Start: 1963 Adult depression scr eening assessment DEPRESSION SCREENING [facility] Start: 1963 COVID-19 VACCINE (1) COVID-19 VACCIN E (1) [facility] Start: 1950 ABDOMINAL AORTIC ANE URYSM SCREENING ABDOMINAL AORTIC ANEURYSM SCREENING [facility] Payers Date Payer Category Payer Unknown [employer] [id number] 2016-Present Indemnity [id number] 2015 Medicare 2015 Medicare MEDICARE MEDICAR E A AND B [id number] 2015-Present [place], [place] Medicare [id number] Social History Date Type Detail Facility Start: 02-20-2013 Tobacco smoking stat us CTIS Current every day smoker [facility] History of tobacco use Cigarette Smoker C [facility] Work Phone: Start: 02-20-2013 Cigarettes smoked current (pack per day) - Reported [facility] Start: 02-20-2013 Alcohol intake Current drinke r of alcohol (finding) [facility] Start: 01-20-2013 Alcohol Comment drinks 1-2 chriss es per year [facility] Start: 1950 Sex Assigned At Not on file C [facility] Clinical Note 06-23-2021 Note Date & Type Note Facility 06-23-2021 Note HNO ID: [id number] Author: Bayron Harmon RN Service: Care Management Author Type: Registered Nurse Type: Care Mgt Initial Assessment Filed: 06/23/2021 9:53 AM Note Text: CARE MANAGEMENT PROGRESS NOTE SERVICE DATE: 06/23/2021 SERVICE TIME: 949 LOS: 0 days Needs Prior to Discharge: To Be Determined This patient has been screened for Care Management Transitional Planning Services. At this time, it does not appear this patient will require transition planning services. Should this change, and the patient require transition/discharge planning services during this admission, please call [phone]. Bayron Harmon RN June 23, 2021 9:53 AM SIGNATURE: Bayron Harmon RN PATIENT NAME: Ambrosio Stout DATE: June 23, 2021 TIME: 9:53 AM PAGER/CONTACT #: [phone] [facility] Progress note 06-23-2021 Note Date & Type Note Facility 06-23-2021 Note HNO ID: [id number] Author: Randa Chaves RN Service: Electrophysiology Author Type: Registered Nurse Type: Progress Notes Filed: 06/23/2021 9:34 AM Note Text: POD1 ICD check - s/p upgrade to PRISON OFFICER-D system with addition RA and LV leads. No events overnight. Testing stable. Teaching completed. Pt to continue follow-up at [facility]. Preliminary report on chart; full report to follow in Chart Review, cardiac tab. [facility] Progress note 06-22-2021 Note Date & Type Note Facility 06-22-2021 Note HNO ID: [id number] Author: Jose Rojas MD Service: Electrophysiology Author Type: Physician Type: Progress Notes Filed: 06/22/2021 2:26 PM Note Text: [facility] General Electrophysiology (EP) EP Attending I contacted Mr. Stout's at his request, to update him on the successful and uncomplicated procedure. I spoke with Brooks Stout, his son. Answered all his questions and he expressed appreciation. Jose Rojas MD June 22, 2021 2:[address] [facility] Clinical Note 06-07-2021 Note Date & Type Note Facility 06-07-2021 Note Patient Outreach (AM BC) PHONGAMBROSIO Alda ([id number]) 1950 M Date Time Provider Department 06/07/21 YOLETTE SAMUEL ([facility] During your visit today, we recorded the following information about you: Amairani Homar Bragg 06/07/2021 10:01 AM Signed COVID COMMUNITY MONITORING PROGRAM Provider Action/FYI: Contact made with patient No - (If patient is COVID POSITIVE) - Initial outreach attempt - left message - Hello, my name is Amairani Homar Bragg and I am calling from the [facility]. I am sorry that I missed you, but your care is important to us, we would like to follow up with you. If any of your symptoms have worsened, please call your PCP's office to discuss, [facility] 24 hr appointment line at [phone], or Express Care Online for a virtual visit 31/12. [facility] Employees may call [facility] Employee Hotline at [phone]. Outreach ended. Allergies As of Date: 06/07/2021 Noted Allergy Reaction FRANK INHIBITORS 03/01/2021 3 - Cough ATORVASTATIN 04/07/2021 17 - Myalgia BUPROPION 04/07/2021 1 - Mental Status Change Comments: Headache and psychotic episode. GABAPENTIN 04/07/2021 14 - Other: See Comments Comments: Numbness PANTOPRAZOLE 05/31/2021 12 - Shortness of Breath PENICILLINS 03/20/2005 2 - Rash SULFA (SULFONAMIDE ANTIBIOTICS) 03/20/2005 4 - Hives Date Reviewed: 05/31/2021 Reviewed by: Jose Rojas MD - Fully Assessed Reason for Visit: Covid Follow Up [1675] Cmt: PreOp COVID Notification Prescriptions as of 06/07/2021 - aspirin, enteric coated (ASPIRIN, ENTERIC COATED) 81 mg EC tablet Take 81 mg by mouth once daily. - potassium chloride 20 mEq TbER Take 2 tablets by mouth once daily. - rosuvastatin (CRESTOR) 10 mg tablet Take 10 mg by mouth once daily. - ACCU-CHEK RISHI PLUS TEST STRP test strip USE STRIP TO CHECK GLUCOSE ONCE DAILY - TRUEPLUS LANCETS 33 gauge USE 1 LANCET TO TEST BLOOD SUGAR ONCE A DAY - Lancing Device with Lancets USE ONCE DAILY DIRECTED - metOLazone (ZAROXOLYN) 2.5 mg tablet TAKE 1 TABLET BY MOUTH ONCE DAILY 30 MINUTES BEFORE LASIX - carvedilol (COREG) 12.5 mg tablet Take 12.5 mg by mouth twice daily. - furosemide (LASIX) 80 mg tablet Take 40 mg by mouth twice daily. - VASCEPA 1 gram capsule TAKE 1 CAPSULE BY MOUTH DAILY IN THE MORNING AND 2 CAPSULES AT BEDTIME - nitroglycerin sublingual (NITROQUICK) 0.4 mg SL tablet Dissolve 0.4 mg under the tongue every 5 minutes as needed. - isosorbide mononitrate ER (IMDUR) 60 mg 24 hr tablet Take 60 mg by mouth once daily. - albuterol sulfate 90 mcg/actuation aebs Inhale as instructed. As needed - clopidogrel (PLAVIX) 75 mg tablet Take 75 mg by mouth once daily. - melatonin 3 mg Tab Take 3 mg by mouth daily at bedtime. Problem List As Of Date 06/07/2021 Noted Resolved Hypertension [I10] 04/11/2005 DYSPHAGIA [787.2] 09/18/2005 IDIO PERIPH NEURPTHY NOS [G60.9] 04/04/2007 CARPAL TUNNEL SYNDROME [G56.00] 11/11/2007 IMPOTENCE, ORGANIC ORIGN [N52.9] 11/05/2008 TOBACCO USE DISORDER [F17.200] 11/05/2008 Left inguinal hernia [K40.90] 01/20/2013 Arteriosclerosis of coronary artery [I25.10] 06/25/2011 Left ventricular systolic dysfunction, chronic * Ventricular tachycardia (HCC) [I47.2] Presence of implantable cardioverter-defibrilla* At risk for sudden cardiac [Z91.89] Chronic ischemic heart disease [I25.9] Chronic HFrEF (heart failure with reduced eject* Chronic systolic heart failure (HCC) [I50.22] Left bundle branch block (LBBB) [I44.7] Left ventricular dyssynchrony [I49.8] Diabetes mellitus (HCC) [E11.9] 11/12/2016 Family history of hypertension [Z82.49] 04/14/2021 Hyperlipidemia [E78.5] 06/27/2011 Stage 3 chronic kidney disease (HCC) [N18.30] 04/14/2021 Adverse effects of medication [T50.905A] Encounter Status:Closed by AMAIRANI MAYEN on 06/07/21 [facility] Progress note 06-07-2021 Note Date & Type Note Facility 06-07-2021 Note HNO ID: [id number] Author: Amairani Bragg Service: ? Author Type: ? Type: Progress Notes Filed: 06/07/2021 10:01 AM Note Text: COVID COMMUNITY MONITORING PROGRAM Provider Action/FYI: Contact made with patient No - (If patient is COVID POSITIVE) - Initial outreach attempt - left message - Hello, my name is Amairani Arredondotad Bragg and I am calling from the [facility]. I am sorry that I missed you, but your care is important to us, we would like to follow up with you. If any of your symptoms have worsened, please call your PCP's office to discuss, [facility] 24 hr appointment line at [phone], or Express Care Online for a virtual visit 31/12. [facility] Employees may call [facility] Employee Hotline at [phone]. Outreach ended. [facility] Progress note 05-31-2021 Note Date & Type Note Facility 05-31-2021 Note HNO ID: [id number] Author: Rupali Beaulieu APRN.STIFF NECK LOADER Service: ? Author Type: Nurse Practitioner Type: Progress Notes Filed: 05/31/2021 10:50 AM Note Text: [facility] [place] General Cardiology Electrophysiology PRIMARY CARE PHYSICIAN: Eleuterio Abreu MD [address] [facility] [address] CHIEF COMPLAINT: Cardiovascular medicine follow-up for ICD and upcoming procedure. HISTORY OF PRESENT ILLNESS: History copied from previous notes, edited as needed: Dr. Rojas's notes 04/14/2021: Mr. Stout is a 70 year old male who presents today with his daughter for evaluation. He has a history of coronary artery disease with remote myocardial infarction and ischemic cardiomyopathy. 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 The ICD was implanted by my former partner here at [facility] Dr. Lopez. Mr. Stout has not had any problems with the ICD implant site of the right upper chest, and has never been aware of any shocks or therapies from the ICD. He has been followed by general vp outcomes, Dr. Yoder, in [place]. Mr. Stout has ventricular dyssynchrony from left bundle branch block, and his heart failure has been worsening over time. He has worsening heart failure symptoms, including earlier in the year and admission for decompensated heart failure. The cardiomyopathy has also been progressing, with worsening of left ventricular ejection fraction, most recently 15%. He has not recently been experiencing severe lightheadedness, near-syncope or syncope. He does not experience palpitations. He does have exertional shortness of breath that occurs with moderate degree of physical activity, although not with activities of daily living such as bathing or showering or brushing his teeth. He denies orthopnea and PND. Dr. Yoder has referred Mr. Stout to me for consideration of upgrade of the single-chamber ICD system to a cardiac resynchronization ICD (PRISON OFFICER-D) system. IMPRESSION: Mr. Stout has a history of coronary artery disease with previous myocardial infarction in 2011, multiple PCI/stent procedures over the years, ischemic cardiomyopathy with reduced left ventricular ejection fraction. More recently the cardiomyopathy has worsened despite optimal medical therapy. He does have an ICD that was implanted in 2012 for primary prevention of sudden cardiac . This is a [employer] single-chamber ICD system via the right chest. He has been struggling more recently with heart failure, having multiple heart failure decompensations and having worsening heart failure symptoms. He is NYHA FC III heart failure symptom classification. He has very substantial, very severe left ventricular dyssynchrony due to left bundle branch block and very prolonged QRS duration greater than 200 ms. He is therefore an appropriate candidate for cardiac resynchronization therapy (PRISON OFFICER). This would involve upgrade of the current single-chamber ICD system to a biventricular pacing [facility] cardiac resynchronization therapy ICD (PRISON OFFICER-D) system with the addition of a left ventricular pacing lead (via coronary sinus tributary) and also addition of right atrial pace/sense lead. I believe Mr. Stout is appropriate candidate for PRISON OFFICER-D upgrade, and in fact has such severe ventricular dyssynchrony that he has good likelihood of having a beneficial response. There is reasonable chance of improvement in LVEF, degree of MR, and also functional abilities. ? I had a very detailed discussion with Mr. Stout and his daughter regarding the potential benefit of upgrade of the ICD to PRISON OFFICER-D system. I discussed the pros/cons, the risks, benefits and alternatives. A formal shared decision making discussion was conducted with the patient and his daughter during which the benefits and risks of ICDs along with his values, preferences and wishes were considered. He is inclined to proceed but would like to discuss with his family first before making a final decision. PLAN AND RECOMMENDATIONS: Recommend upgrade of single-chamber ICD to PRISON OFFICER-D as having very favorable risk:benefit. Mr. Stout will contact me when he makes a final decision. Interval History: The patient had Dr. Rojas shortly after his recent office visit to inform him that he was agreeable to proceed with ICD upgrade. He is here today to update his history and physical prior to scheduled procedure on 06/07/[address] Rojas. He reports no changes to his medical history or family history. He denies issues with anesthesia or sedation medications in the past. He denies recent fever, chills, coughing or wheezing, he will be Covid tested 2 days prior to scheduled procedure. He does admit to occasional palpitations when he lays down at night, has been experiencin (more content not included)... [facility] Progress note 04-14-2021 Note Date & Type Note Facility 04-14-2021 Note HNO ID: [id number] Author: Jose Rojas MD Service: ? Author Type: Physician Type: Progress Notes Filed: 04/14/2021 6:17 PM Note Text: PRIMARY CARE PHYSICIAN: Eleuterio Abreu MD [address] [place] [address] REFERRING PHYSICIAN: Pratik Yoder MD ([facility]) [address] [facility] [id number] Patient Care Team: Eleuterio Abreu as PCP - General (Gerontology) Pratik Yoder as Specialty Mixed Signal Design Engineer (Cardiology) Kaye Lai I, DO as Specialty Mixed Signal Design Engineer (Nephrology) CHIEF COMPLAINT: Evaluation for ICD upgrade for heart failure HISTORY OF PRESENT ILLNESS: Mr. Stout is a 70 year old male who presents today with his daughter for evaluation. He has a history of coronary artery disease with remote myocardial infarction and ischemic cardiomyopathy. 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 The ICD was implanted by my former partner here at [facility] Dr. Lopez. Mr. Stout has not had any problems with the ICD implant site of the right upper chest, and has never been aware of any shocks or therapies from the ICD. He has been followed by general vp outcomes, Dr. Yoder, in [place]. Mr. Stout has ventricular dyssynchrony from left bundle branch block, and his heart failure has been worsening over time. He has worsening heart failure symptoms, including earlier in the year and admission for decompensated heart failure. The cardiomyopathy has also been progressing, with worsening of left ventricular ejection fraction, most recently 15%. He has not recently been experiencing severe lightheadedness, near-syncope or syncope. He does not experience palpitations. He does have exertional shortness of breath that occurs with moderate degree of physical activity, although not with activities of daily living such as bathing or showering or brushing his teeth. He denies orthopnea and PND. Dr. Yoder has referred Mr. Stout to me for consideration of upgrade of the single-chamber ICD system to a cardiac resynchronization ICD (PRISON OFFICER-D) system. I have confirmed and edited as necessary, the PFSH and ROS obtained by others. PAST MEDICAL HISTORY Diagnosis Date - Adverse effects of medication - At risk for sudden cardiac chronic ischemic heart disease, LVEF 15% - CAD (coronary artery disease) CAD s/p NSTEMI 2011-PTCA/YUDY to LCX and PTCA/YUDY to mid and distal RCA 06/21/2011 and uccessful PTCA YUDY to proximal/mid PL branch of RCA with a 3.0x38 Promus synergy, post dilated proximally with a 3.5 x8 NC balloon, Successful PTCA/YUDY mid LCX with a 2.25 x 28 Promus synergy followed by with a 2.25 x 8 Promus Synergy. YUDY/PTCA of proximal LCX with a 2.5 x 8 Promus synergy - Cervicalgia - Chronic HFrEF (heart failure with reduced ejection fraction) (HCC) - Chronic ischemic heart disease LVEF 15% by echocardiogram 02/2021 - Chronic kidney disease, stage III (moderate) (HCC) - Chronic systolic heart failure (HCC) - Diabetes mellitus (HCC) Type 2 - Dysmetabolic syndrome X - Essential hypertension - Functional dyspnea - History of myocardial infarction NSTEMI 06/22/2011 - Left bundle branch block (LBBB) - Left ventricular dyssynchrony LBBB with QRS duration 202 ms - Left ventricular systolic dysfunction, chronic Chronic systolic CHF - Mitral valve regurgitation - Other and unspecified hyperlipidemia - Plantar fascial fibromatosis - Presence of implantable cardioverter-defibrillator (ICD) [employer] single-chamber ICD implanted 05/12/2013; indication: primary prevention sudden cardiac - Tobacco use disorder - Ventricular tachycardia (HCC) PAST SURGICAL HISTORY Procedure Laterality Date - BASIC ICD SINGLE CHAMBER Right 05/12/2013 [employer] single-chamber ICD; indication: primary prevention SCD; [facility] Dr. Lopez - ECHOCARDIOGRAM 04/15/2020 LVEF 20% - ECHOCARDIOGRAM 03/07/2021 LVEF 15%; moderately severe MR and TR - INSERT INTRACORONARY STENT 05/22/2019 - INSERT INTRACORONARY STENT 06/22/2011 - INSERT INTRACORONARY STENT 11/10/2019 - LAP REPAIR INTIAL INGUINAL HERNIA 02/05/2013 LEFT - LEFT HEART CATH,PERCUTANEOUS 11/17/2012 patent pre-existing stents; LVEF 35% - LEFT HEART CATH,PERCUTANEOUS 06/22/2011 - LEFT HEART CATH,PERCUTANEOUS 05/24/2020 - PHARMACOLOGIC NUCLEAR STRESS 08/26/2020 LVEF 23% - REVISE MEDIAN N/CARPAL TUNNEL SURG 12/09/2007 RIGHT SOCIAL HISTORY Social History Tobacco Use - Smoking status: Former Smoker Packs/day: 0.80 Years: 30.00 Pack years: 24.00 Types: Cigarettes Quit date: 03/23/2021 Years since quittin.0 - Smokeless tobacco: Never Used Vaping Use - Vaping Use: Never used Substance Use Topics - Alcohol use: Yes Comment: drinks 1-2 times per year - Igor (more content not included)... [facility] Note 03-10-2021 Telephone Encounter - Werner Michelle - 03/10/2021 12:10 PM EDT Note Date & Type Note Facility 03-10-2021 Miscellaneous Notes Outside records received, scanned into EP [employer] drive. documented in this encounter [facility] Summary Purpose Family History No Family History Records FoundNo Family History Records FoundNo Family History Records FoundNo Family History Records Found Advance Directives No Advanced Directives Records FoundNo Advanced Directives Records FoundNo Advanced Directives Records FoundNo Advanced Directives Records Found Additional Source Comments (unrecognized sect ion and content) No Status Records FoundNo Status Records FoundNo Status Records FoundNo Status Records Found INFORMATION SOURCE (unrecogn ized section and content) DATE CREATED AUTHOR AUTHOR'S ORGANIZ ATION 04/21/2019 [facility] [place] [facility] [place] [facility] DATE CREATED AUTHOR AUTHOR'S ORGANIZ ATION 06/24/2021 [facility] DATE CREATED AUTHOR AUTHOR'S ORGANIZ ATION 07/15/2021 [facility] Source Comments (unrecognize d section and content) In the event this informatio n is protected by the Federal Confidentiality of Alcohol and Drug Abuse Patient Records regulations: The Federal rules restrict any use of the information to criminally investigate or prosecute any alcohol or drug abuse patient.[facility] Reason for Visit (unrecogniz ed section and content) FOR RECORDS PERTAINING TO PATIENTS WHO ARE OR HAVE BEEN ENROLLED IN A CHEMICAL DEPENDENCY/SUBSTANCEABUSE PROGRAM, SOME INFORMATION MAY BE OMITTED. This clinical summary was aggregated from multiple sources. Caution should be exercised in using it in the provision of clinical care. This summary normalizes information from multiple sources, and as a consequence, information in this document may materially change the coding, format and clinical context of patient data. In addition, data may be omitted in some cases. CLINICAL DECISIONS SHOULD BE BASED ON THE PRIMARY CLINICAL RECORDS. [facility]. provides no warranty or guarantee of the accuracy or completeness of information in this document.
[2023-07-04 12:47] LABS: Absolute Lymphocyte Count 1.52 X10^3/uL (0.83-4.51); Absolute Neutrophil Count 5.4 X10^3/uL (2.0-7.7); Basophil# 0.07 X10^3/uL; Basophil% 0.8 % (0-1); Eosinophil# 0.21 X10^3/uL; Eosinophils% 2.5 % (0-5); Hematocrit 39.7 % (40-54); Lymphocyte # 1.52 X10^3/ul (0.83-4.51); Lymphocyte % 17.9 % (19-41); Mean Corp Hgb Conc 32.7 g/dL (32-36); Mean Corpuscular Hgb 31.3 pg (27.0-32.0); Mean Corpuscular Volume 95.4 fL (80-94); Mean Platelet Vol. 10.6 fl (6.2-12.0); Monocyte# 1.17 X10^3/uL; Monocyte% 13.8 % (0-10); NRBC Flagged by Analyzer 0 % (0-5); Neutrophil # 5.43 X10^3/uL (2.7-7.7); Neutrophil % 63.9 % (47-70); Platelet Count 152 K/mm3 (150-450); RBC Distribution Width SD 48.6 fl (35.1-43.9); Red Blood Count 4.16 M/mm3 (4.6-6.2); White Blood Count 8.5 K/mm3 (4.4-11.0)
[2023-07-04 13:01] LABS: ALB/GLOB Ratio 1.2 RATIO (0.9-2.4); AST(SGOT) 10 U/L (15-37); Alanine Aminotransfer ALT/SGPT 21 U/L (16-61); Albumin, Serum 3.5 g/dL (3.2-5.0); Alkaline Phosphatase 67 U/L (45-117); Anion Gap 6 (5-15); BUN 43 mg/dL (7-18); BUN/Creat Ratio 16.8 RATIO (10-20); Calcium,Total 9.1 mg/dL (8.5-10.1); Chloride 106 mmol/L (98-107); Creatinine, Serum 2.56 mg/dL (0.70-1.30); EST Glomerular Filtration Rate 26 mL/min (>60); Est Glom Filt Rate - Afr Amer 32 mL/min (>60); Glucose 203 mg/dL (74-106); Potassium 4.1 mmol/L (3.5-5.1); Protein, Total 6.5 g/dL (6.4-8.2); Sodium Level 139 mmol/L (136-145); Thyroid Stim Hormone (TSH) 1.27 uIU/mL (0.358-3.74)
[2023-07-04 13:14] LABS: PTHIN 201.8 pg/mL (18.4-80.1)
[2023-07-05 10:13] LABS: Phosphorus 2.4 mg/dL (2.5-4.9)
== END | disposition home or self-care (01) ==
LOC: LAB.FUTURE 11:11 → POLAB3 07-05 06:20
PROVIDERS: PCP Family Medicine Geriatric Medicine; Visit Provider Internal Medicine Nephrology
DX: E11.22 Type 2 diabetes mellitus with diabetic chronic kidney disease (principal); E11.65 Type 2 diabetes mellitus with hyperglycemia; N18.4 Chronic kidney disease, stage 4 (severe); N25.81 Secondary hyperparathyroidism of renal origin; R53.83 Other fatigue; E55.9 Vitamin D deficiency, unspecified
CPT/HCPCS: 36415; 80053; 82306; 83970; 84100; 84443; 85025

== ENCOUNTER → 2023-07-09 | Outpatient (CLI) | payer MEDICARE, OTHER, SELFPAY ==
[2020-02-18 06:00] VITALS: BMI 28.0
--- OUTSIDE RECORDS SUMMARY | 2023-07-09 15:21 | XMS RPT_ITS | CCD ---
Author Name Unknown Address [address] [place] [address] Organization [facility] Care Team Providers Care Pulmonology Technician Name Role Phone MISHA LANDRY Unavailable Unavailable MISHA LANDRY Unavailable Unavailable Pcp, No Primary Care Provider Unavailabl e Allergies Allergy Classification Reported Allergen(s) Allergy Type Date of Onset Reaction(s) Facility (1 source) Penicillins Propensity to adverse reactions 5 [facility] Work Phone: (1 source) Sulfonamides (Antibiotic) Propensity to adverse reactions 5 [facility] Work Phone: Medications Completed/Discontinued Medications Medication [...] disease (2 sources) Atherosclerotic heart disease of [place] coronary artery without angina pectoris; Translations: [ATHSCL HEART DISEASE OF [place] CORONARY ARTERY W/O ANG PCTRS] Onset: 12-17-2016 [...] Author Start: 02-08-2021 Influenza vaccination INFLUENZA (#1) [facility] Start: 2016 ADVANCE DIRECTIVE DISCUSSION ADVANCE DIRECTIVE DISCUSSION [facility] Start: 2016 PNEUMOVAX AGE 65 AND OVER WITH 5YR LOOKBACK (#1) PNEUMOVAX AGE 65 AND OVER WITH 5YR LOOKBACK (#1) [facility] Start: 05-12-2016 DIABETES SCREEN DIABETES SCREEN [facility] Start: 09-07-2011 LIPID SCREEN LIPID SCREEN [facility] Start: 2001 SHINGRIX VACCINE (1 of 2) SHINGRIX V ACCINE (1 of 2) [facility] Start: 1996 COLOGUARD (FIT-DNA) COLOGUARD (FIT-D NA) [facility] Start: 1996 Colonoscopy COLONOSCOPY [facility] Start: [address] COLONOGRAPHY [facility] Start: 1996 FECAL OCCULT BLOOD FECAL OCCULT BLOO D [facility] Start: 1996 Screening for malign ant neoplasm of colon COLORECTAL CANCER SCREENING [facility] Start: 1996 SIGMOIDOSCOPY SIGMOIDOSCOPY [facility] Start: 1970 Urine microalbumin profile DTAP,TDAP ,TD (1 - Tdap) [facility] Start: 1969 HEPATITIS C SCREENING HEPATITIS C SC REENING [facility] Start: 1963 Adult depression scr eening assessment DEPRESSION SCREENING [facility] Start: 1963 COVID-19 VACCINE (1) COVID-19 VACCIN E (1) [facility] Start: 1950 ABDOMINAL AORTIC ANE URYSM SCREENING ABDOMINAL AORTIC ANEURYSM SCREENING [facility] [place] [facility] Payers Date Payer Category Payer Unknown [employer] [id number] 2016-Present Indemnity [id number] 2015 Medicare 2015 Medicare MEDICARE MEDICAR E A AND B [id number] 2015-Present [place] [id number] Social History Date Type Detail Facility Start: 02-20-2013 Tobacco smoking stat us NMIS Current every day smoker [facility] History of tobacco use Cigarette Smoker C [facility] Work Phone: Start: 02-20-2013 Cigarettes smoked current (pack per day) - Reported [facility] Start: 02-20-2013 Alcohol intake Current drinke r of alcohol (finding) [facility] Start: 01-20-2013 Alcohol Comment drinks 1-2 chriss es per year [facility] Start: 1950 Sex Assigned At Not on file C [facility] Clinical Note 06-23-2021 Note Date & Type Note Facility 06-23-2021 Note HNO ID: [id number] Author: Bayron Harmon RN Service: Care Management [...] planning services during this admission, please call [phone]. Bayron Harmon RN June 23, 2021 9:53 AM SIGNATURE: Bayron Harmon RN PATIENT NAME: Ambrosio Stout DATE: June 23, 2021 TIME: 9:53 AM PAGER/CONTACT #: [phone] [facility] Progress note 06-23-2021 Note Date & Type Note Facility 06-23-2021 Note HNO ID: [id number] Author: Randa Chaves RN Service: Electrophysiology Author Type: Registered Nurse Type: Progress Notes Filed: 06/23/2021 9:34 AM Note Text: POD1 ICD check - s/p upgrade to SPORTS COMMENTATOR-D system with addition RA and LV leads. No events overnight. Testing stable. Teaching completed. Pt to continue follow-up at [facility]. Preliminary report on chart; full report to follow in Chart Review, cardiac tab. [facility] Progress note 06-22-2021 Note Date & Type Note Facility 06-22-2021 Note HNO ID: [id number] Author: Jose Rojas MD Service: Electrophysiology Author Type: Physician Type: Progress Notes Filed: 06/22/2021 2:26 PM Note Text: [facility] Electrophysiology (EP) EP Attending I contacted Mr. Stout's at his request, to update him on the successful and uncomplicated procedure. I spoke with Brooks Stout, his son. Answered all his questions and he expressed appreciation. Jose Rojas MD June 22, 2021 2:26 PM [facility] Clinical Note 06-07-2021 Note Date & Type Note Facility 06-07-2021 Note Patient Outreach (AM BC) PHONGAMBROSIO Alda ([id number]) 1950 M Date Time Provider Department 06/07/21 YOLETTE SAMUEL ([facility] During your visit today, we recorded the following information about you: Amairani Homar Bragg 06/07/2021 10:01 AM Signed COVID COMMUNITY MONITORING PROGRAM Provider Action/FYI: Contact made with patient No - (If patient is COVID POSITIVE) - Initial outreach attempt - left message - Hello, my name is Amairani Homar Bragg and I am calling from the [facility]. I am sorry that I missed you, but your care is important to us, we would like to follow up with you. If any of your symptoms have worsened, please call your PCP's office to discuss, [facility] 24 hr appointment line at [phone], or Express [facility] Online for a virtual visit 31/12. [facility] Employees may call [employer] Employee Hotline at [phone]. Outreach ended. Allergies As of Date: 06/07/2021 [...] Assessed Reason for Visit: Covid Follow Up [4230] Cmt: PreOp COVID Notification Prescriptions as of [...] Encounter Status:Closed by AMAIRANI MAYEN on 06/07/21 [facility] Progress note 06-07-2021 Note Date & Type Note Facility 06-07-2021 Note HNO ID: [id number] Author: Amairani Bragg Service: ? Author Type: ? Type: Progress Notes Filed: 06/07/2021 10:01 AM Note Text: COVID COMMUNITY MONITORING PROGRAM Provider Action/FYI: Contact made with patient No - (If patient is COVID POSITIVE) - Initial outreach attempt - left message - Hello, my name is Amairani Arredondotad Bragg and I am calling from the [facility]. I am sorry that I missed you, but your care is important to us, we would like to follow up with you. If any of your symptoms have worsened, please call your PCP's office to discuss, [facility] 24 hr appointment line at [phone], or [facility] for a virtual visit 31/12. [facility] Employees may call [facility] Employee Hotline at [phone]. Outreach ended. [facility] Progress note 05-31-2021 Note Date & Type Note Facility 05-31-2021 Note HNO ID: [id number] Author: Rupali Beaulieu APRN.HOG COUNTER Service: ? Author Type: Nurse Practitioner Type: Progress Notes Filed: 05/31/2021 10:50 AM Note Text: [facility] Electrophysiology PRIMARY CARE PHYSICIAN: Eleuterio Abreu MD [address] [facility] [address] [address] CHIEF COMPLAINT: Cardiovascular medicine follow-up for ICD [...] implanted by my former partner here at [facility] Dr. Lopez. Mr. Stout has not had any problems with the ICD implant site of the right upper chest, and has never been aware of any shocks or therapies from the ICD. He has been followed by general metal numerical control programmer, Dr. Yoder, in [place]. Mr. Stout has ventricular dyssynchrony from left [...] ICD system to a cardiac resynchronization ICD (SPORTS COMMENTATOR-D) system. IMPRESSION: Mr. Stout has a history of coronary artery disease with previous myocardial infarction in 2011, multiple PCI/stent procedures over the years, ischemic cardiomyopathy with reduced left ventricular ejection fraction. More recently the cardiomyopathy has worsened despite optimal medical therapy. He does have an ICD that was implanted in 2012 for primary prevention of sudden cardiac . This is a [employer] single-chamber ICD system via the right [...] an appropriate candidate for cardiac resynchronization therapy (SPORTS COMMENTATOR). This would involve upgrade of the current single-chamber ICD system to a biventricular pacing [facility] cardiac resynchronization therapy ICD (SPORTS COMMENTATOR-D) system with the addition of a left ventricular pacing lead (via coronary sinus tributary) and also addition of right atrial pace/sense lead. I believe Mr. Stout is appropriate candidate for SPORTS COMMENTATOR-D upgrade, and in fact has such severe ventricular dyssynchrony that he has good likelihood of having a beneficial response. There is reasonable chance of improvement in LVEF, degree of MR, and also functional abilities. ? I had a very detailed discussion with Mr. Stout and his daughter regarding the potential benefit of upgrade of the ICD to SPORTS COMMENTATOR-D system. I discussed the pros/cons, the risks, [...] RECOMMENDATIONS: Recommend upgrade of single-chamber ICD to SPORTS COMMENTATOR-D as having very favorable risk:benefit. Mr. Stout [...] has been experiencin (more content not included)... [facility] Progress note 04-14-2021 Note Date & Type Note Facility 04-14-2021 Note HNO ID: [id number] Author: Jose Rojas MD Service: ? Author Type: Physician Type: Progress Notes Filed: 04/14/2021 6:17 PM Note Text: PRIMARY CARE PHYSICIAN: Eleuterio Abreu MD [address] [place] [address] REFERRING PHYSICIAN: Pratik Yoder MD ([facility]) [address] [facility] [id number] Patient Care Team: Eleuterio Abreu as PCP - General (Gerontology) Pratik Yoder as Specialty Asset Protection Greeter (Cardiology) Kaye Lai I, DO as Specialty Asset Protection Greeter (Nephrology) CHIEF COMPLAINT: Evaluation for ICD upgrade [...] implanted by my former partner here at [facility] Dr. Lopez. Mr. Stout has not had any problems with the ICD implant site of the right upper chest, and has never been aware of any shocks or therapies from the ICD. He has been followed by general metal numerical control programmer, Dr. Yoder, in [place]. Mr. Stout has ventricular dyssynchrony from left [...] ICD system to a cardiac resynchronization ICD (SPORTS COMMENTATOR-D) system. I have confirmed and edited as [...] fibromatosis - Presence of implantable cardioverter-defibrillator (ICD) [employer] single-chamber ICD implanted 05/12/2013; indication: primary prevention sudden cardiac - Tobacco use disorder - Ventricular tachycardia (HCC) PAST SURGICAL HISTORY Procedure Laterality Date - BASIC ICD SINGLE CHAMBER Right 05/12/2013 [employer] single-chamber ICD; indication: primary prevention SCD; [facility] Dr. Lopez - ECHOCARDIOGRAM 04/15/2020 LVEF 20% [...] year - Igor (more content not included)... [facility] Note 03-10-2021 Telephone Encounter - Werner Michelle - 03/10/2021 12:10 PM EDT Note Date & Type Note Facility 03-10-2021 Miscellaneous Notes Outside records received, scanned into EP [facility] [employer] [facility]. documented in this encounter [facility] Summary Purpose Family History No Family History [...] DATE CREATED AUTHOR AUTHOR'S ORGANIZ ATION 04/21/2019 [facility] DATE CREATED AUTHOR AUTHOR'S ORGANIZ ATION 06/24/2021 [facility] DATE CREATED AUTHOR AUTHOR'S ORGANIZ ATION 07/15/2021 [facility] Source Comments (unrecognize d section and content) In the event this informatio n is protected by the Federal Confidentiality of Alcohol and Drug Abuse Patient Records regulations: The Federal rules restrict any use of the information to criminally investigate or prosecute any alcohol or drug abuse patient.[facility] Reason for Visit (unrecogniz ed section and [...] BE BASED ON THE PRIMARY CLINICAL RECORDS. [facility] [employer] [facility]. provides no warranty or guarantee of the accuracy or completeness of information in this document.
[2023-07-09 15:34] LABS: Microalbumin,Random Urine 36.5 mg/L (NO RANGE EST.); Microalbumin:Creatinine Ratio 50.5 mg/g CRE (<30 mg/g CRE)
== END | disposition home or self-care (01) ==
LOC: POLAB3 14:52
PROVIDERS: PCP Family Medicine Geriatric Medicine; Visit Provider Internal Medicine Nephrology
DX: E11.22 Type 2 diabetes mellitus with diabetic chronic kidney disease (principal)
CPT/HCPCS: 82043; 82570

== ENCOUNTER → 2023-08-02 | Outpatient (CLI) | payer MEDICARE, OTHER, SELFPAY ==
[2020-02-18 06:00] VITALS: BMI 28.0
[2023-08-02 15:30] LABS: Absolute Lymphocyte Count 1.47 X10^3/uL (0.83-4.51); Absolute Neutrophil Count 5.1 X10^3/uL (2.0-7.7); Basophil# 0.07 X10^3/uL; Basophil% 0.9 % (0-1); Eosinophil# 0.27 X10^3/uL; Eosinophils% 3.4 % (0-5); Hematocrit 40.1 % (40-54); Hemoglobin 13.3 g/dL (13.0-16.5); Lymphocyte # 1.47 X10^3/ul (0.83-4.51); Lymphocyte % 18.4 % (19-41); Mean Corp Hgb Conc 33.2 g/dL (32-36); Mean Corpuscular Hgb 31.7 pg (27.0-32.0); Mean Corpuscular Volume 95.5 fL (80-94); Mean Platelet Vol. 11.2 fl (6.2-12.0); Monocyte# 0.99 X10^3/uL; Monocyte% 12.4 % (0-10); NRBC Flagged by Analyzer 0 % (0-5); Neutrophil # 5.09 X10^3/uL (2.7-7.7); Neutrophil % 63.8 % (47-70); Platelet Count 181 K/mm3 (150-450); RBC Distribution Width CV 14.1 % (11.6-14.6); RBC Distribution Width SD 49.1 fl (35.1-43.9)
[2023-08-02 16:01] LABS: ALB/GLOB Ratio 1.2 RATIO (0.9-2.4); AST(SGOT) 13 U/L (15-37); Alanine Aminotransfer ALT/SGPT 19 U/L (16-61); Albumin, Serum 3.8 g/dL (3.2-5.0); Alkaline Phosphatase 76 U/L (45-117); Anion Gap 3 (5-15); BUN 50 mg/dL (7-18); BUN/Creat Ratio 17.2 RATIO (10-20); Calcium,Total 9.3 mg/dL (8.5-10.1); Chloride 103 mmol/L (98-107); Creatinine, Serum 2.91 mg/dL (0.70-1.30); EST Glomerular Filtration Rate 23 mL/min (>60); Est Glom Filt Rate - Afr Amer 28 mL/min (>60); Globulin 3.3 g/dL (2.2-4.2); Glucose 145 mg/dL (74-106); Magnesium 2.1 mg/dL (1.6-2.6); Potassium 4.2 mmol/L (3.5-5.1); Protein, Total 7.1 g/dL (6.4-8.2); Sodium Level 138 mmol/L (136-145)
--- OUTSIDE RECORDS SUMMARY | 2023-08-02 17:32 | XMS RPT_ITS | CCD ---
Author Name Unknown Address [address] [place] [address] Organization [facility] Care Team Providers Care Dredging Inspector Name Role Phone MISHA LANDRY Unavailable Unavailable MISHA LANDRY Unavailable Unavailable Pcp, No Primary Care Provider Unavailabl e Allergies Allergy Classification Reported Allergen(s) Allergy Type Date of Onset Reaction(s) Facility (1 source) Penicillins Propensity to adverse reactions 5 [facility] Work Phone: (1 source) Sulfonamides (Antibiotic) Propensity to adverse reactions 5 [facility] Work Phone: Medications Completed/Discontinued Medications Medication [...] disease (2 sources) Atherosclerotic heart disease of [place] coronary artery without angina pectoris; Translations: [ATHSCL HEART DISEASE OF [place] CORONARY ARTERY W/O ANG PCTRS] Onset: 12-17-2016 [...] Author Start: 02-08-2021 Influenza vaccination INFLUENZA (#1) [facility] Start: 2016 ADVANCE DIRECTIVE DISCUSSION ADVANCE DIRECTIVE DISCUSSION [facility] Start: 2016 PNEUMOVAX AGE 65 AND OVER WITH 5YR LOOKBACK (#1) PNEUMOVAX AGE 65 AND OVER WITH 5YR LOOKBACK (#1) [facility] Start: 05-12-2016 DIABETES SCREEN DIABETES SCREEN [facility] Start: 09-07-2011 LIPID SCREEN LIPID SCREEN [facility] Start: 2001 SHINGRIX VACCINE (1 of 2) SHINGRIX V ACCINE (1 of 2) [facility] Start: 1996 COLOGUARD (FIT-DNA) COLOGUARD (FIT-D NA) [facility] Start: 1996 Colonoscopy COLONOSCOPY [facility] Start: [address] COLONOGRAPHY [facility] Start: 1996 FECAL OCCULT BLOOD FECAL OCCULT BLOO D [facility] Start: 1996 Screening for malign ant neoplasm of colon COLORECTAL CANCER SCREENING [facility] Start: 1996 SIGMOIDOSCOPY SIGMOIDOSCOPY [facility] Start: 1970 Urine microalbumin profile DTAP,TDAP ,TD (1 - Tdap) [facility] Start: 1969 HEPATITIS C SCREENING HEPATITIS C SC REENING [facility] Start: 1963 Adult depression scr eening assessment DEPRESSION SCREENING [facility] Start: 1963 COVID-19 VACCINE (1) COVID-19 VACCIN E (1) [facility] Start: 1950 ABDOMINAL AORTIC ANE URYSM SCREENING ABDOMINAL AORTIC ANEURYSM SCREENING [facility] [place] [facility] Payers Date Payer Category Payer Unknown [employer] [id number] 2016-Present Indemnity [id number] 2015 Medicare 2015 Medicare MEDICARE MEDICAR E A AND B [id number] 2015-Present [place] Medicare [id number] Social History Date Type Detail Facility Start: 02-20-2013 Tobacco smoking stat us NJIS Current every day smoker [facility] History of tobacco use Cigarette Smoker [facility] Work Phone: Start: 02-20-2013 Cigarettes smoked current (pack per day) - Reported [facility] Start: 02-20-2013 Alcohol intake Current drinke r of alcohol (finding) [facility] Start: 01-20-2013 Alcohol Comment drinks 1-2 chriss es per year [facility] Start: 1950 Sex Assigned At Not on file [facility] Clinical Note 06-23-2021 Note Date & Type Note Facility 06-23-2021 Note HNO ID: [id number] Author: Bayron Harmon RN Service: Care Management [...] planning services during this admission, please call [phone]. Bayron Harmon RN June 23, 2021 9:53 AM SIGNATURE: Bayron Harmon RN PATIENT NAME: Ambrosio Stout DATE: June 23, 2021 TIME: 9:53 AM PAGER/CONTACT #: [phone] [facility] Progress note 06-23-2021 Note Date & Type Note Facility 06-23-2021 Note HNO ID: [id number] Author: Randa Chaves RN Service: Electrophysiology Author Type: Registered Nurse Type: Progress Notes Filed: 06/23/2021 9:34 AM Note Text: POD1 ICD check - s/p upgrade to MANAGER DECISION SUPPORT-D system with addition RA and LV leads. No events overnight. Testing stable. Teaching completed. Pt to continue follow-up at [facility]. Preliminary report on chart; full report to follow in Chart Review, cardiac tab. [facility] Progress note 06-22-2021 Note Date & Type Note Facility 06-22-2021 Note HNO ID: [id number] Author: Jose Rojas MD Service: Electrophysiology Author Type: Physician Type: Progress Notes Filed: 06/22/2021 2:26 PM Note Text: [facility] General Electrophysiology (EP) EP Attending I contacted Mr. Stout's at his request, to update him on the successful and uncomplicated procedure. I spoke with Brooks Stout, his son. Answered all his questions and he expressed appreciation. Jose Rojas MD June 22, 2021 2:26 PM [facility] Clinical Note 06-07-2021 Note Date & Type Note Facility 06-07-2021 Note Patient Outreach (AM BC) PHONGAMBROSIO Alda ([id number]) 1950 M Date Time Provider Department 06/07/21 YOLETTE SAMUEL [facility] During your visit today, we recorded the following information about you: Amairani Homar Bragg 06/07/2021 10:01 AM Signed COVID COMMUNITY MONITORING PROGRAM Provider Action/FYI: Contact made with patient No - (If patient is COVID POSITIVE) - Initial outreach attempt - left message - Hello, my name is Amairani Homar Bragg and I am calling from the [facility]. I am sorry that I missed you, but your care is important to us, we would like to follow up with you. If any of your symptoms have worsened, please call your PCP's office to discuss, [facility] 24 hr appointment line at [phone], or Express Care Online for a virtual visit 31/12. [facility] Employees may call [facility] Employee Hotline at [phone]. Outreach ended. Allergies As of Date: 06/07/2021 [...] Assessed Reason for Visit: Covid Follow Up [1105] Cmt: PreOp COVID Notification Prescriptions as of [...] Encounter Status:Closed by AMAIRANI MAYEN on 06/07/[address] [facility] Progress note 06-07-2021 Note Date & Type Note Facility 06-07-2021 Note HNO ID: [id number] Author: Amairani Bragg Service: ? Author Type: ? Type: Progress Notes Filed: 06/07/2021 10:01 AM Note Text: COVID COMMUNITY MONITORING PROGRAM Provider Action/FYI: Contact made with patient No - (If patient is COVID POSITIVE) - Initial outreach attempt - left message - Hello, my name is Amairani Arredondotad Bragg and I am calling from the [facility]. I am sorry that I missed you, but your care is important to us, we would like to follow up with you. If any of your symptoms have worsened, please call your PCP's office to discuss, [facility] 24 hr appointment line at [phone], or [facility] Online for a virtual visit 31/12. [facility] Employees may call [facility] Employee Hotline at [phone]. Outreach ended. [facility] Progress note 05-31-2021 Note Date & Type Note Facility 05-31-2021 Note HNO ID: [id number] Author: Rupali Beaulieu APRN.MEDICAL AND HEALTH SERVICES MANAGER Service: ? Author Type: Nurse Practitioner Type: Progress Notes Filed: 05/31/2021 10:50 AM Note Text: [facility] Electrophysiology PRIMARY CARE PHYSICIAN: Eleuterio Abreu MD [address] [facility] [address] [address] CHIEF COMPLAINT: Cardiovascular medicine follow-up for ICD [...] implanted by my former partner here at [facility] Dr. Lopez. Mr. Stout has not had any problems with the ICD implant site of the right upper chest, and has never been aware of any shocks or therapies from the ICD. He has been followed by general warehouse shipping receiving clerk, Dr. Yoder, in [place]. Mr. Stout has ventricular dyssynchrony from left [...] and PND. Dr. Yoder has referred Mr. Stuot to me for consideration of upgrade of the single-chamber ICD system to a cardiac resynchronization ICD (MANAGER DECISION SUPPORT-D) system. IMPRESSION: Mr. Stout has a history of coronary artery disease with previous myocardial infarction in 2011, multiple PCI/stent procedures over the years, ischemic cardiomyopathy with reduced left ventricular ejection fraction. More recently the cardiomyopathy has worsened despite optimal medical therapy. He does have an ICD that was implanted in 2012 for primary prevention of sudden cardiac . This is a [employer] single-chamber ICD system via the right [...] an appropriate candidate for cardiac resynchronization therapy (MANAGER DECISION SUPPORT). This would involve upgrade of the current single-chamber ICD system to a biventricular pacing [facility] cardiac resynchronization therapy ICD (MANAGER DECISION SUPPORT-D) system with the addition of a left ventricular pacing lead (via coronary sinus tributary) and also addition of right atrial pace/sense lead. I believe Mr. Stout is appropriate candidate for MANAGER DECISION SUPPORT-D upgrade, and in fact has such severe ventricular dyssynchrony that he has good likelihood of having a beneficial response. There is reasonable chance of improvement in LVEF, degree of MR, and also functional abilities. ? I had a very detailed discussion with Mr. Stout and his daughter regarding the potential benefit of upgrade of the ICD to MANAGER DECISION SUPPORT-D system. I discussed the pros/cons, the risks, [...] RECOMMENDATIONS: Recommend upgrade of single-chamber ICD to MANAGER DECISION SUPPORT-D as having very favorable risk:benefit. Mr. Stout [...] has been experiencin (more content not included)... [facility] Progress note 04-14-2021 Note Date & Type Note Facility 04-14-2021 Note HNO ID: [id number] Author: Jose Rojas MD Service: ? Author Type: Physician Type: Progress Notes Filed: 04/14/2021 6:17 PM Note Text: PRIMARY CARE PHYSICIAN: Eleuterio Abreu MD [address] [place] [address] REFERRING PHYSICIAN: Pratik Yoder MD ([facility]) [address] [facility] [id number] Patient Care Team: Eleuterio Abreu as PCP - General (Gerontology) Pratik Yoder as Specialty Geochemistry Teacher (Cardiology) Kaye Lai I, DO as Specialty Geochemistry Teacher (Nephrology) CHIEF COMPLAINT: Evaluation for ICD upgrade [...] implanted by my former partner here at [facility] Dr. Lopez. Mr. Stout has not had any problems with the ICD implant site of the right upper chest, and has never been aware of any shocks or therapies from the ICD. He has been followed by general warehouse shipping receiving clerk, Dr. Yoder, in [place]. Mr. Stout has ventricular dyssynchrony from left [...] ICD system to a cardiac resynchronization ICD (MANAGER DECISION SUPPORT-D) system. I have confirmed and edited as [...] fibromatosis - Presence of implantable cardioverter-defibrillator (ICD) [employer] single-chamber ICD implanted 05/12/2013; indication: primary prevention sudden cardiac - Tobacco use disorder - Ventricular tachycardia (HCC) PAST SURGICAL HISTORY Procedure Laterality Date - BASIC ICD SINGLE CHAMBER Right 05/12/2013 [employer] single-chamber ICD; indication: primary prevention SCD; [facility] Dr. Lopez - ECHOCARDIOGRAM 04/15/2020 LVEF [...] year - Igor (more content not included)... [facility] Note 03-10-2021 Telephone Encounter - Werner Michelle - 03/10/2021 12:10 PM EDT Note Date & Type Note Facility 03-10-2021 Miscellaneous Notes Outside records received, scanned into EP DGSE drive. documented in this encounter [facility] Summary Purpose Family History No Family History [...] DATE CREATED AUTHOR AUTHOR'S ORGANIZ ATION 04/21/2019 [facility] DATE CREATED AUTHOR AUTHOR'S ORGANIZ ATION 06/24/2021 [facility] DATE CREATED AUTHOR AUTHOR'S ORGANIZ ATION 07/15/[address] [facility] Source Comments (unrecognize d section and content) In the event this informatio n is protected by the Federal Confidentiality of Alcohol and Drug Abuse Patient Records regulations: The Federal rules restrict any use of the information to criminally investigate or prosecute any alcohol or drug abuse patient.[facility] Reason for Visit (unrecogniz ed section and [...] BE BASED ON THE PRIMARY CLINICAL RECORDS. [facility]. provides no warranty or guarantee of the accuracy or completeness of information in this document.
== END | disposition home or self-care (01) ==
LOC: LAB 14:22
PROVIDERS: PCP Family Medicine Geriatric Medicine; Referring Provider Nurse Practitioner Family; Visit Provider Nurse Practitioner Family
DX: I25.5 Ischemic cardiomyopathy (principal); N18.30 Chronic kidney disease, stage 3 unspecified; R94.39 Abnormal result of other cardiovascular function study
CPT/HCPCS: 36415; 80053; 83735; 85025

== ENCOUNTER → 2023-10-16 | Outpatient (CLI) | payer MEDICARE, OTHER, SELFPAY ==
[2020-02-18 06:00] VITALS: BMI 28.0
[2023-10-16 13:55] LABS: PTHIN 315.1 pg/mL (18.4-80.1)
[2023-10-16 13:59] LABS: Albumin, Serum 3.7 g/dL (3.2-5.0); BUN 61 mg/dL (7-18); BUN/Creat Ratio 20.8 RATIO (10-20); Calcium,Total 8.7 mg/dL (8.5-10.1); Chloride 100 mmol/L (98-107); Creatinine, Serum 2.93 mg/dL (0.70-1.30); EST Glomerular Filtration Rate 23 mL/min (>60); Est Glom Filt Rate - Afr Amer 27 mL/min (>60); Glucose 226 mg/dL (74-106); Potassium 3.9 mmol/L (3.5-5.1); Sodium Level 135 mmol/L (136-145)
== END | disposition home or self-care (01) ==
LOC: LAB 12:06
PROVIDERS: PCP Family Medicine Geriatric Medicine; Referring Provider Internal Medicine Nephrology; Visit Provider Internal Medicine Nephrology
DX: N25.81 Secondary hyperparathyroidism of renal origin (principal); N18.4 Chronic kidney disease, stage 4 (severe)
CPT/HCPCS: 36415; 80069; 83970

== ENCOUNTER → 2023-10-18 | Outpatient (CLI) | payer MEDICARE, OTHER, SELFPAY ==
[2020-02-18 06:00] VITALS: BMI 28.0
--- NOTE | 2023-10-18 08:36 | AAAS_ITS ---
Reason For Study: AAA Aorta Measurements Aorta Doppler Measurements Proximal aorta measures2.0 x 1.96cm. in cross- Peak systolic flow velocities within the proximal sectional axis. aorta measure 74.6 cm/sec. Proximal aorta measures1.83cm. in longitudinal Peak systolic flow velocities within the mid aorta axis. measure 36.2 cm/sec. Mid aorta measures4.58 x 4.45cm. in cross- Peak systolic flow velocities within the distal sectional axis. aorta measure 41.5 cm/sec. Mid aorta measures4.61cm. in longitudinal axis. Distal aorta measures2.41 x 2.13cm. in cross- sectional axis. Distal aorta measures2.32cm. in longitudinal axis. Left Iliac Artery Left iliac artery measures 1.65 x 1.62 cm. in the cross-sectional axis. Left iliac artery measures 1.7 cm. in the longitudinal axis. Peak systolic velocity in the left iliac artery measures 45.3 cm/sec. Right Iliac Artery Right iliac artery measures 1.44 x 1.40 cm. in the cross-sectional axis. Right iliac artery measures 1.46 cm. in the longitudinal axis. Peak systolic velocity in the right iliac artery measures 51.9 cm/sec. Procedure Aorta IVC Iliac vasculature or bypass grafts [id number]. Technically difficult study. Exam performed in department. VL/AAA Screening Interpretation Summary Aorta patent, 4.61 cm aneurysm present Right iliac artery patent, ectasia to 1.65 cm Left iliac artery patent, ectasia to 1.44 cm Ordering Physician: Eleuterio Abreu Chi Referring Physician: Eleuterio Abreu Chi Performed By: Marilyn Weaver, RYAN, RVT
== END | disposition home or self-care (01) ==
LOC: CVS 08:35
PROVIDERS: PCP Family Medicine Geriatric Medicine; Referring Provider Family Medicine Geriatric Medicine; Visit Provider Family Medicine Geriatric Medicine
DX: I71.40 Abdominal aortic aneurysm, without rupture, unspecified (principal); N18.4 Chronic kidney disease, stage 4 (severe); N25.81 Secondary hyperparathyroidism of renal origin
CPT/HCPCS: 76706

== ENCOUNTER → 2023-11-14 | Outpatient (CLI) | payer MEDICARE, OTHER, SELFPAY ==
[2020-02-18 06:00] VITALS: BMI 28.0
[2023-11-14 15:57] LABS: PTHIN 224.8 pg/mL (18.4-80.1)
[2023-11-14 16:15] LABS: Albumin, Serum 3.4 g/dL (3.2-5.0); BUN 53 mg/dL (7-18); Calcium,Total 9.2 mg/dL (8.5-10.1); Chloride 102 mmol/L (98-107); Creatinine, Serum 2.79 mg/dL (0.70-1.30); EST Glomerular Filtration Rate 24 mL/min (>60); Est Glom Filt Rate - Afr Amer 29 mL/min (>60); Glucose 148 mg/dL (74-106); Phosphorus 2.6 mg/dL (2.5-4.9); Potassium 4.3 mmol/L (3.5-5.1); Sodium Level 135 mmol/L (136-145)
== END | disposition home or self-care (01) ==
LOC: LAB 13:52
PROVIDERS: PCP Family Medicine Geriatric Medicine; Referring Provider Internal Medicine Nephrology; Visit Provider Internal Medicine Nephrology
DX: N18.4 Chronic kidney disease, stage 4 (severe) (principal); N25.81 Secondary hyperparathyroidism of renal origin
CPT/HCPCS: 36415; 80069; 83970

== ENCOUNTER 2023-12-14 02:38 | Emergency (ER) | payer MEDICARE, OTHER, SELFPAY ==
[2020-02-18 06:00] VITALS: BMI 28.0
[2023-12-14 02:39] VITALS: BP 133/80; PULSE 74; RESP 18; TEMP 36.6; O2SAT 100; BMI 25.4
[2023-12-14] MEDS: diazePAM 5 MG Tablet PO (03:20)
[2023-12-14] MEDS: oxyCODONE 5 MG Tablet PO (03:20)
--- NOTE | 2023-12-14 03:59 | EDS_ITS ---
HPI History of Present Illness Chief Complaint: Back Informant: patient and family Narrative Narrative: Patient is a 73-year-old male with past medical history of hypertension hyperlipidemia type 2 diabetes chronic kidney disease and CAD with implanted pacemaker/defibrillator. He states that on he noticed some pain in his bilateral neck that felt more like a tension or tightness. He denied any trauma or excessive activity. He states this time past he felt the tightness increased despite placing some [id number] topical cream on it and using ibuprofen sparingly. He states that he cannot sleep this evening secondary to the pain and therefore comes in for evaluation [facility] Medical History Abdominal aneurysm Coronary artery disease Leukocytosis Elevated serum creatinine CKD (chronic kidney disease) Paroxysmal ventricular tachycardia Pacemaker Smoker Wears glasses High cholesterol Neuropathy History of CHF (congestive heart failure) Cardiology follow-up encounter Left ventricular apical thrombus Presence of cardiac resynchronization therapy defibrillator (MATERIALS TECH-D) (~06/22/21) Abnormal findings on diagnostic imaging of heart and coronary circulation Mitral valve regurgitation, rheumatic Ischemic cardiomyopathy CKD (chronic kidney disease) stage 3, GFR 30-59 ml/min Type 2 diabetes mellitus Presence of stent in coronary artery (11/10/19) Pure hypercholesterolemia Essential (primary) hypertension 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 Automatic implantable cardiac defibrillator in situ Cardiomyopathy in other diseases classified elsewhere Abnormal echocardiogram Abnormal myocardial perfusion study Blurred vision Chest tightness Ventricular tachycardia Acute ID, subendocardial, subsequent episode of care Atherosclerotic heart disease of [place] coronary artery without angina pectoris Home Medications ?Medication ?Instructions ?Recorded ?Last Taken ?Type rosuvastatin 10 mg tablet 10 mg PO QHS cholesterol 09/22/19 08/24/20 History aspirin 81 mg tablet,delayed 81 mg PO DAILY@0800 HEALTH 08/25/20 12/11/21 History release MAINTENANCE albuterol sulfate 90 mcg/actuation 1 - 2 puff inhalation Q4H PRN PRN 08/26/20 Unknown Rx aerosol inhaler Shortness Of Breath ##1 furosemide 40 mg tablet 40 mg PO BID FLUID 03/09/21 Unknown History icosapent ethyl 1 gram capsule 1 g PO .COMPLEX CHOLESTEROL 08/29/21 12/11/21 History (Vascepa) pantoprazole 40 mg tablet,delayed 40 mg PO DAILY #90 tabs 02/15/22 Unknown Rx release potassium chloride 20 mEq 20 meq PO TID 02/27/22 Unknown History tablet,extended release carvedilol 12.5 mg tablet 12.5 mg PO BID #180 tabs 03/18/23 Unknown Rx isosorbide mononitrate 30 mg 30 mg PO DAILY #90 tabs 03/18/23 Unknown Rx tablet,extended release 24 hr nitroglycerin 0.4 mg sublingual 0.4 mg sublingual Q5M PRN Pain #25 03/21/23 Unknown Rx tablet (Nitrostat) tabs vericiguat 10 mg tablet (Verquvo) 10 mg PO DAILY 03/21/23 Unknown History cholecalciferol (vitamin D3) 25 25 mcg PO DAILY 08/02/23 Unknown History mcg (1,000 unit) tablet melatonin 5 mg tablet 5 mg PO HS PRN 08/02/23 Unknown History ranolazine 500 mg tablet,extended 500 mg PO BID #180 tabs 09/09/23 Unknown Rx release,12 hr metolazone 2.5 mg tablet 2.5 mg PO .Mondays12/03/23 Unknown History diazepam 5 mg tablet (Valium) 5 mg PO TID PRN muscle spasm 5 12/14/23 Unknown Rx days #15 tabs oxycodone-acetaminophen 5 mg-325 1 tab PO Q6H PRN pain 3 days #12 12/14/23 Unknown Rx mg tablet (Percocet) tabs Allergy/AdvReac Type Severity Reaction Status Date / Time FRANK Inhibitors Allergy cough Verified 12/14/23 02:44 atorvastatin (From Lipitor) Allergy myalgia Verified 12/14/23 02:44 gabapentin (From Neurontin) Allergy numbness Verified 12/14/23 02:44 Penicillins Allergy Hives Verified 12/14/23 02:44 Sulfa (Sulfonamide Allergy Hives Verified 12/14/23 02:44 Antibiotics) lisinopril AdvReac Intermediate Pain in Verified 12/14/23 02:44 joints bupropion AdvReac headaches Verified 12/14/23 02:44 and borderline psychotic Family History Father Myocardial infarction, Onset Age: 70 CAD (coronary artery disease) Hx of CABG Mother CAD (coronary artery disease) Diabetes Pacemaker Brother Myocardial infarction age of onset 40s Sister Myocardial infarction, Onset Age: 62 Rheumatic fever Son Hypertension Diabetes Daughter Diabetes Surgical History History of left heart catheterization (LHC) (~05/24/20) Presence of coronary angioplasty implant and graft (~05/22/19) History of herniorrhaphy Social History Smoking Status: Current every day smoker tobacco type: cigarettes quit status: considering quitting alcohol intake: current alcohol intake frequency: a few times a week Alcohol type: hard liquor substance use type: does not use caffeine: Yes Type: coffee Number of servings: 2 what type of physical activity do you participate in: none ROS ROS ED Constitutional Constitutional ED: Denies chills or fever(s) Eyes Eyes: Denies change in vision ENT ENT ED: Denies rhinorrhea or sore throat Cardiovascular Cardiovascular: Denies chest pain Respiratory/Chest Respiratory/Chest: Denies cough or dyspnea Gastrointestinal Gastrointestinal: Denies abdominal pain, diarrhea, nausea or vomiting Genitourinary Genitourinary ED: Denies dysuria Musculoskeletal Musculoskeletal: Reports neck pain Integumentary Denies Abrasions or rash Neurologic Neurologic: Denies headache(s), paresthesias or weakness Hematologic/Lymphatic Hematologic/Lymphatic: Denies easy bleeding or easy bruising EXAM Physical Exam Const Vital Signs: 12/14/23 02:39 12/14/23 04:05 Temperature 97.9 F 98.0 F Temperature Source Temporal Pulse Rate 74 74 Respiratory Rate 18 19 H Blood Pressure 133/80 H 108/64 Blood Pressure Mean 97 78 Pulse Ox 100 98 Oxygen Delivery Method Room Air Positive well nourished and well developed General Appearance ED: well developed; Negative for pallor HEENT HEENT Narrative: No tongue or lip swelling no oral lesions no airway edema or compromise No signs of infection noted in the posterior pharynx Eyes PERRL and EOMs intact bilaterally General Eye ED: Negative for scleral icterus Neck Neck Narrative: No bony deformity or step-off of the cervical spine no midline tenderness to palpation There is bilateral paracervical tension and spasm noted that worsens with sidebending and rotation Resp normal respiratory effort and clear to auscultation bilaterally Cardio regular rate and regular rhythm GI normal to inspection, nondistended, normoactive bowel sounds, non-tender, non- distended and no masses Auscultation: normoactive bowel sounds Palpation: soft Back/Spine Back/Spine Narrative: No bony deformity or step-off of the thoracic or lumbar spine no midline tenderness to palpation Extremity normal to inspection Extremity Narrative: Bilateral upper extremities are neurovascularly intact; AIN/PIN are intact and normal Neuro oriented x3, CN's II-XII intact bilaterally and no sensory deficits noted Sensorium / Orientation: alert Psych mental status grossly normal Skin no rashes or lesions noted and no wounds General Skin Exam: Negative for jaundice or pallor MDM MDM MDM Narrative Medical decision making narrative: Patient arrived to the ER with stable vitals and reported bilateral neck pain without trauma or excessive activity. His vitals are stable and he does not have meningeal signs or signs of infection in the posterior pharynx and his history and exam is most consistent with muscular strain and tension as a cause of his symptoms. Without midline tenderness I have low concern for a compression fracture or spondylolisthesis. Also with normal neurologic exam and stable vitals I have low concern for meningitis. Therefore at this time I do not feel there is need for imaging or laboratory studies but patient will be medicated with Valium for muscle relaxation and oxycodone for pain. He was reevaluated after giving these medications and he has reported moderate improvement of symptoms. As bilateral upper extremities are also neurovascular intact I have low concern for neurovascular compromise. Therefore with improvement of symptoms and stable vitals patient can be medicated and discharged home and follow-up on an outpatient basis History & Record Review Discussion w/independent historian: Patient and Family Discharge Plan Triage Chief Complaint: Back ED Provider: Ha Romo Dx/Rx/DC Orders Clinical Impression: Cervical myofascial strain, Cervical paraspinal muscle spasm, Type 2 diabetes mellitus, CKD (chronic kidney disease) stage 3, GFR 30-59 ml/min, Essential (primary) hypertension Instructions: ED Back Spasm, No Trauma, ED Back Sprain/Strain Prescriptions: New oxycodone-acetaminophen [Percocet] 5-325 mg tablet 1 tab PO Q6H PRN (Reason: pain) 3 Days Qty: 12 0RF diazepam [Valium] 5 mg tablet 5 mg PO TID PRN (Reason: muscle spasm) 5 Days Qty: 15 0RF No Action potassium chloride 20 mEq tablet extended release 20 meq PO TID Verquvo 10 mg tablet 10 mg PO DAILY Rx Instructions: must administer with a meal/food nitroglycerin [Nitrostat] 0.4 mg tablet, sublingual 0.4 mg SL Q5M PRN (Reason: Pain) Qty: 25 3RF metolazone 2.5 mg tablet 2.5 mg PO .MONDAYS cholecalciferol (vitamin D3) 25 mcg (1,000 unit) tablet 25 mcg PO DAILY melatonin 5 mg tablet 5 mg PO HS PRN aspirin 81 MG tablet 81 mg PO DAILY@0800 albuterol sulfate 1 INHALER inhaler 1 - 2 puff INHALATION Q4H PRN PRN (Reason: Shortness Of Breath) Qty: 1 0RF icosapent ethyl [Vascepa] 1 gram capsule 1 g PO .COMPLEX Rx Instructions: 1 g PO Take 1 capsule AM, 2 capsules PM; rosuvastatin 10 mg tablet 10 mg PO QHS furosemide 40 mg tablet 40 mg PO BID pantoprazole 40 mg tablet,delayed release (DR/EC) 40 mg PO DAILY Qty: 90 3RF isosorbide mononitrate 30 mg tablet extended release 24 hr 30 mg PO DAILY Qty: 90 3RF carvedilol 12.5 mg tablet 12.5 mg PO BID Qty: 180 3RF ranolazine 500 mg tablet extended release 12 hr 500 mg PO BID Qty: 180 3RF Primary Care Provider: Eleuterio Abreu Chi Referrals: Eleuterio Abreu Chi, MD [Primary Care Provider] - Activity Restrictions/Additional Instructions: Your symptoms and exam are most consistent with a cervical spasm and strain. Heat and stretch her neck to reduce pain and speed healing. Take the prescribed medication as directed to reduce symptoms and return to the ER should you have any further concerns Print Language: Hungarian Disposition Disposition: Home, Self Care Discharge Date/Time: 12/14/23 04:10
[2023-12-14 04:05] VITALS: BP 108/64; PULSE 74; RESP 19; TEMP 36.7; O2SAT 98
== END 2023-12-14 04:10 | disposition home or self-care (01) ==
LOC: ED 04:08
PROVIDERS: Emergency Provider Emergency Medicine; PCP Family Medicine Geriatric Medicine; Visit Provider Emergency Medicine
DX: S16.1XXA Strain of muscle, fascia and tendon at neck level, initial encounter (principal); I13.0 Hypertensive heart and chronic kidney disease with heart failure and stage 1 through stage 4 chronic kidney disease, or unspecified chronic kidney disease; I50.9 Heart failure, unspecified; E11.22 Type 2 diabetes mellitus with diabetic chronic kidney disease; E11.40 Type 2 diabetes mellitus with diabetic neuropathy, unspecified; N18.30 Chronic kidney disease, stage 3 unspecified; M62.830 Muscle spasm of back; E78.00 Pure hypercholesterolemia, unspecified; F17.210 Nicotine dependence, cigarettes, uncomplicated; I25.10 Atherosclerotic heart disease of native coronary artery without angina pectoris; Z95.810 Presence of automatic (implantable) cardiac defibrillator; X58.XXXA Exposure to other specified factors, initial encounter
CPT/HCPCS: 99283

== ENCOUNTER → 2023-12-19 | Outpatient (CLI) | payer MEDICARE, OTHER, SELFPAY ==
[2020-02-18 06:00] VITALS: BMI 28.0
[2023-12-19 12:23] LABS: Absolute Lymphocyte Count 1.32 X10^3/uL (0.83-4.51); Absolute Neutrophil Count 6.2 X10^3/uL (2.0-7.7); Basophil# 0.06 X10^3/uL; Basophil% 0.7 % (0-1); Eosinophil# 0.16 X10^3/uL; Eosinophils% 1.8 % (0-5); Hematocrit 35.4 % (40-54); Hemoglobin 11.6 g/dL (13.0-16.5); Lymphocyte # 1.32 X10^3/ul (0.83-4.51); Lymphocyte % 14.9 % (19-41); Mean Corp Hgb Conc 32.8 g/dL (32-36); Mean Corpuscular Hgb 29.7 pg (27.0-32.0); Mean Corpuscular Volume 90.8 fL (80-94); Mean Platelet Vol. 10.6 fl (6.2-12.0); Monocyte# 0.96 X10^3/uL; Monocyte% 10.8 % (0-10); NRBC Flagged by Analyzer 0 % (0-5); Neutrophil # 6.23 X10^3/uL (2.7-7.7); Neutrophil % 70.1 % (47-70); Platelet Count 177 K/mm3 (150-450); RBC Distribution Width CV 14.4 % (11.6-14.6); RBC Distribution Width SD 48.4 fl (35.1-43.9); White Blood Count 8.9 K/mm3 (4.4-11.0)
[2023-12-19 12:49] LABS: ALB/GLOB Ratio 0.8 RATIO (0.9-2.4); AST(SGOT) 15 U/L (15-37); Alanine Aminotransfer ALT/SGPT 14 U/L (16-61); Albumin, Serum 3.1 g/dL (3.2-5.0); Alkaline Phosphatase 72 U/L (45-117); Anion Gap 9 (5-15); BUN 56 mg/dL (7-18); BUN/Creat Ratio 17.4 RATIO (10-20); Calcium,Total 9.3 mg/dL (8.5-10.1); Chloride 101 mmol/L (98-107); Cholesterol 107 mg/dL (200); Creatinine, Serum 3.22 mg/dL (0.70-1.30); EST Glomerular Filtration Rate 20 mL/min (>60); Est Glom Filt Rate - Afr Amer 25 mL/min (>60); Globulin 3.8 g/dL (2.2-4.2); Glucose 115 mg/dL (74-106); High Density Lipoprotein 29 mg/dL; Potassium 4.2 mmol/L (3.5-5.1); Protein, Total 6.9 g/dL (6.4-8.2); Sodium Level 137 mmol/L (136-145); Thyroid Stim Hormone (TSH) 1.61 uIU/mL (0.358-3.74); Triglycerides 115 mg/dL; Very Low Density Lipoprotein 23 mg/dL (5-40)
[2023-12-19 12:51] LABS: Vitamin D,25 Hydroxy 32.9 ng/mL
[2023-12-19 14:01] LABS: Hemoglobin A1c 6.6 % (3.8-5.6)
== END | disposition home or self-care (01) ==
LOC: POLAB3 11:26
PROVIDERS: PCP Family Medicine Geriatric Medicine; Visit Provider Family Medicine Geriatric Medicine
DX: E11.65 Type 2 diabetes mellitus with hyperglycemia (principal); R53.83 Other fatigue; E55.9 Vitamin D deficiency, unspecified
CPT/HCPCS: 36415; 80053; 80061; 82306; 83036; 84443; 85025

== ENCOUNTER 2024-01-02 21:43 | Emergency (ER) | payer MEDICARE, OTHER, SELFPAY ==
[2020-02-18 06:00] VITALS: BMI 28.0
[2024-01-02 21:47] VITALS: BP 72/57; PULSE 72; RESP 18; TEMP 36.8; O2SAT 99; BMI 25.4
--- NOTE | 2024-01-02 23:37 | RAD_ITS ---
INDICATION: pain EXAMINATION/TECHNIQUE: X-RAY - RIGHT XR Wrist Min 3 Views 3 VIEWS COMPARISON: FINDINGS: BONES: No fracture demonstrated. JOINTS: No dislocation. SOFT TISSUES: Unremarkable. IV catheter noted dorsally. RAD/Wrist min 3 Views IMPRESSION: No evidence of fracture. Electronically Signed: Hailee Porras MD at 0:24 EDT ,
--- NOTE | 2024-01-02 23:37 | RAD_ITS ---
INDICATION: pain EXAMINATION/TECHNIQUE: X-RAY - LEFT XR Knee 3 Views 3 VIEWS COMPARISON: FINDINGS: BONES: No fracture demonstrated. JOINTS: No dislocation. SOFT TISSUES: Small joint effusion. RAD/Knee 3 Views IMPRESSION: Small joint effusion. No evidence of fracture. Electronically Signed: Hailee Porras MD at 0:35 EDT ,
[2024-01-02] MEDS: Ondansetron 4 MG/2 ML Vial IV (23:49)
[2024-01-02] MEDS: Morphine 4 MG/ML Syringe IV (23:49)
[2024-01-03 00:22] LABS: Anion Gap 9 (5-15); BUN 65 mg/dL (7-18); Calcium,Total 8.4 mg/dL (8.5-10.1); Chloride 105 mmol/L (98-107); Creatinine, Serum 2.95 mg/dL (0.70-1.30); EST Glomerular Filtration Rate 22 mL/min (>60); Est Glom Filt Rate - Afr Amer 27 mL/min (>60); Estimated Creatinine Clearance 24.84 ml/min; Glucose 122 mg/dL (74-106); Potassium 3.8 mmol/L (3.5-5.1); Sodium Level 135 mmol/L (136-145); Uric Acid 11.2 mg/dL (3.5-7.2)
[2024-01-03 00:26] LABS: Lactic Acid 1.1 mmol/L (0.4-1.9)
[2024-01-03 00:38] LABS: Absolute Neutrophil Count 9.8 X10^3/uL (2.0-7.7); Basophil# 0.04 X10^3/uL; Basophil% 0.3 % (0-1); Eosinophil# 0.04 X10^3/uL; Eosinophils% 0.3 % (0-5); Hematocrit 33.6 % (40-54); Hemoglobin 11.4 g/dL (13.0-16.5); Lymphocyte % 8.1 % (19-41); Mean Corp Hgb Conc 33.9 g/dL (32-36); Mean Corpuscular Hgb 30.1 pg (27.0-32.0); Mean Corpuscular Volume 88.7 fL (80-94); Mean Platelet Vol. 10.3 fl (6.2-12.0); Monocyte# 2.27 X10^3/uL; Monocyte% 16.8 % (0-10); NRBC Flagged by Analyzer 0 % (0-5); Neutrophil # 9.81 X10^3/uL (2.7-7.7); Neutrophil % 72.6 % (47-70); POSITIVE DIFFERENTIAL YES; Platelet Count 213 K/mm3 (150-450); Red Blood Count 3.79 M/mm3 (4.6-6.2); White Blood Count 13.5 K/mm3 (4.4-11.0)
[2024-01-03 00:39] LABS: Differential Indicated SCAN CRITERIA MET
[2024-01-03 01:23] LABS: Differential Comment SCANNED; Erythrocyte Sedimentation Rate 15 mm/hr (0-20); Platelet Morphology LARGE
[2024-01-03 01:24] VITALS: BP 114/70; PULSE 86; RESP 16; O2SAT 98
--- NOTE | 2024-01-03 02:44 | EX.ED.DYSGE1 ---
HPI History of Present Illness Chief Complaint: Lower Extremity Injury Informant: patient and family Narrative Narrative: Patient is a 73-year-old male with past medical history of chronic kidney disease as well as CAD and hypertension. He states that over the last 2 or 3 days he has had increased pain to his left knee. He states there is been no recent trauma or excessive activity. He also notes that he now has pain to his right wrist. He denies any fevers or chills but states he is currently on antibiotics secondary to a staph infection. 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) (~06/22/21) Abnormal findings on diagnostic imaging of heart and coronary circulation Mitral valve regurgitation, rheumatic Ischemic cardiomyopathy CKD (chronic kidney disease) stage 3, GFR 30-59 ml/min Type 2 diabetes mellitus Presence of stent in coronary artery (11/10/19) Pure hypercholesterolemia Essential (primary) hypertension 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 Automatic implantable cardiac defibrillator in situ Cardiomyopathy in other diseases classified elsewhere Abnormal echocardiogram Abnormal myocardial perfusion study Blurred vision Chest tightness Ventricular tachycardia Acute CO, subendocardial, subsequent episode of care Atherosclerotic heart disease of [place] coronary artery without angina pectoris Home Medications ?Medication ?Instructions ?Recorded ?Last Taken ?Type rosuvastatin 10 mg tablet 10 mg PO QHS cholesterol 09/22/19 08/24/20 History aspirin 81 mg tablet,delayed 81 mg PO DAILY@0800 HEALTH 08/25/20 12/11/21 History release MAINTENANCE albuterol sulfate 90 mcg/actuation 1 - 2 puff inhalation Q4H PRN PRN 08/26/20 Unknown Rx aerosol inhaler Shortness Of Breath ##1 furosemide 40 mg tablet 40 mg PO BID FLUID 03/09/21 Unknown History icosapent ethyl 1 gram capsule 1 g PO .COMPLEX CHOLESTEROL 08/29/21 12/11/21 History (Vascepa) pantoprazole 40 mg tablet,delayed 40 mg PO DAILY #90 tabs 02/15/22 Unknown Rx release potassium chloride 20 mEq 20 meq PO TID 02/27/22 Unknown History tablet,extended release carvedilol 12.5 mg tablet 12.5 mg PO BID #180 tabs 03/18/23 Unknown Rx isosorbide mononitrate 30 mg 30 mg PO DAILY #90 tabs 03/18/23 Unknown Rx tablet,extended release 24 hr nitroglycerin 0.4 mg sublingual 0.4 mg sublingual Q5M PRN Pain #25 03/21/23 Unknown Rx tablet (Nitrostat) tabs vericiguat 10 mg tablet (Verquvo) 10 mg PO DAILY 03/21/23 Unknown History cholecalciferol (vitamin D3) 25 25 mcg PO DAILY 08/02/23 Unknown History mcg (1,000 unit) tablet melatonin 5 mg tablet 5 mg PO HS PRN 08/02/23 Unknown History ranolazine 500 mg tablet,extended 500 mg PO BID #180 tabs 09/09/23 Unknown Rx release,12 hr metolazone 2.5 mg tablet 2.5 mg PO .Mondays12/03/23 Unknown History diazepam 5 mg tablet (Valium) 5 mg PO TID PRN muscle spasm 5 12/14/23 Unknown Rx days #15 tabs oxycodone-acetaminophen 5 mg-325 1 tab PO Q6H PRN pain 3 days #12 12/14/23 Unknown Rx mg tablet (Percocet) tabs oxycodone-acetaminophen 5 mg-325 1 tab PO Q6H PRN pain 3 days #12 01/03/24 Unknown Rx mg tablet (Percocet) tabs prednisone 10 mg tablet 10 mg PO DAILY #48 TABLETS 01/03/24 Unknown Rx Allergy/AdvReac Type Severity Reaction Status Date / Time FRANK Inhibitors Allergy cough Verified 01/02/24 21:47 atorvastatin (From Lipitor) Allergy myalgia Verified 01/02/24 21:47 gabapentin (From Neurontin) Allergy numbness Verified 01/02/24 21:47 Penicillins Allergy Hives Verified 01/02/24 21:47 Sulfa (Sulfonamide Allergy Hives Verified 01/02/24 21:47 Antibiotics) lisinopril AdvReac Intermediate Pain in Verified 01/02/24 21:47 joints bupropion AdvReac headaches Verified 01/02/24 21:47 and borderline psychotic Family History Father Myocardial infarction, Onset Age: 70 CAD (coronary artery disease) Hx of CABG Mother CAD (coronary artery disease) Diabetes Pacemaker Brother Myocardial infarction age of onset 40s Sister Myocardial infarction, Onset Age: 62 Rheumatic fever Son Hypertension Diabetes Daughter Diabetes Surgical History History of left heart catheterization (LHC) (~05/24/20) Presence of coronary angioplasty implant and graft (~05/22/19) History of herniorrhaphy Social History Smoking Status: Current every day smoker tobacco type: cigarettes quit status: considering quitting alcohol intake: current alcohol intake frequency: a few times a week Alcohol type: hard liquor substance use type: does not use caffeine: Yes Type: coffee Number of servings: 2 what type of physical activity do you participate in: none ROS ROS ED Constitutional Constitutional ED: Denies chills or fever(s) ENT ENT ED: Denies sore throat Cardiovascular Cardiovascular: Denies chest pain Respiratory/Chest Respiratory/Chest: Denies cough or dyspnea Gastrointestinal Gastrointestinal: Denies abdominal pain, diarrhea, nausea or vomiting Genitourinary Genitourinary ED: Denies dysuria Musculoskeletal Musculoskeletal: Reports other Details: Positive left knee and right wrist pain Integumentary Denies rash Neurologic Neurologic: Denies headache(s) Hematologic/Lymphatic Hematologic/Lymphatic: Denies easy bleeding or easy bruising EXAM Physical Exam Const Vital Signs: 01/02/24 21:47 01/03/24 01:24 01/03/24 02:51 Temperature 98.3 F 97.5 F L Temperature Source Temporal Pulse Rate 72 86 83 Respiratory Rate 18 16 16 Blood Pressure 72/57 L 114/70 102/63 Blood Pressure Mean 62 84 76 Pulse Ox 99 98 100 Oxygen Delivery Method Room Air Room Air Positive well nourished and well developed General Appearance ED: well developed; Negative for pallor HEENT HEENT Narrative: Normocephalic atraumatic Eyes PERRL and EOMs intact bilaterally General Eye ED: Negative for scleral icterus Neck supple Neck Narrative: No nuchal rigidity or meningeal signs Resp normal respiratory effort and clear to auscultation bilaterally Cardio regular rate and regular rhythm Extremity Extremity Narrative: Left lower extremity is neurovascularly intact. Patellar tendon is intact and knee ligaments are stable. There is asymmetric soft tissue swelling of the left knee with a small joint effusion. There is mild asymmetric warmth but no overlying erythema. There is pain on palpation of the anterior aspect of the left knee as well as pain with active and passive range of motion Negative Homans' sign bilaterally Right upper extremity is also neurovascularly intact; AIN/PIN are intact and normal. There is mild soft tissue swelling with faint erythema of the right wrist. There is diffuse pain on palpation as well as with passive and active range of motion. Neuro oriented x3, CN's II-XII intact bilaterally and no sensory deficits noted Sensorium / Orientation: alert Psych mental status grossly normal Skin Skin Narrative: Soft tissue changes of the left knee and right wrist as documented above General Skin Exam: Negative for jaundice or pallor MDM MDM MDM Narrative Medical decision making narrative: Patient arrived to the ER afebrile. He reported increasing pain to his left knee and right wrist without trauma. Differential diagnosis is for arthritis versus gout versus septic joint versus fracture or dislocation. Secondary to the concern for fracture or dislocation x-rays were obtained which revealed no acute finding. Patient's white count is slightly elevated at 13.5 but his lactic acid is normal. His uric acid is also elevated at 11.2 and CRP is elevated at 35 consistent with an acute inflammatory process. I discussed with patient and family about the potential of performing a joint aspiration of his left knee in order to ensure that there are no signs of systemic infection and that the aspirate would show monosodium urate crystals consistent with gout. The patient states that as he is currently on antibiotics he has low concern for infection and as his uric acid is elevated he does agree that he thinks this is gout and does not want a joint aspiration at this time. Therefore I will place the patient on pain medication and steroids and he will continue his antibiotics and he states he will follow-up with his family doctor for repeat evaluation. Patient and family do agree to return to the ER for repeat evaluation if he develops a fever or worsening symptoms despite treatment History & Record Review Discussion w/independent historian: Patient and Family Lab Data Attestation: I reviewed the patient's lab results. Labs: Laboratory Results - last 24 hr 01/02/24 23:55 WBC 13.5 H RBC 3.79 L Hgb 11.4 L Hct 33.6 L MCV 88.7 MCH 30.1 MCHC 33.9 RDW Std Deviation 48.0 H RDW Coeff of Jane 15.0 H Plt Count 213 MPV 10.3 Immature Gran % (Auto) 1.900 H Neut % (Auto) 72.6 H Lymph % (Auto) 8.1 L [place] % (Auto) 16.8 H Eos % (Auto) 0.3 Baso % (Auto) 0.3 Absolute Neuts (auto) 9.8 H Absolute Lymphs (auto) 1.10 Nucleated RBC % 0 Differential Comment SCANNED Diff Path Review May foll Plt Morphology Comment LARGE ESR 15 Sodium 135 L Potassium 3.8 Chloride 105 Carbon Dioxide 21.0 Anion Gap 9 BUN 65 H Creatinine 2.95 H Estim Creat Clear Calc 24.84 Est GFR (MDRD) Af Amer 27 L Est GFR (MDRD) Non-Af 22 L BUN/Creatinine Ratio 22.0 H Glucose 122 H Lactic Acid 1.1 Uric Acid 11.2 H Calcium 8.4 L C-React Prot Ext Range 35.70 H Radiography Diagnostic Testing: Clinical Impression(s) from Imaging Studies Knee X-Ray 01/02/24 23:37 IMPRESSION: Small joint effusion. No evidence of fracture. Electronically Signed: Hailee Porras MD at 0:35 EDT Reading Location ID and State: [address] [place] [address] Tel , Service support , Wrist X-Ray 01/02/24 23:37 IMPRESSION: No evidence of fracture. Electronically Signed: Hailee Porras MD at 0:24 EDT , Right wrist x-ray as interpreted by the emergency medicine physician reveals no acute fracture or dislocation Left knee x-ray as interpreted by the emergency medicine physician reveals mild to moderate joint effusion without fracture or dislocation Discharge Plan Triage Chief Complaint: Lower Extremity Injury ED Provider: Ha Romo Dx/Rx/DC Orders Clinical Impression: Gout attack, Type 2 diabetes mellitus, CKD (chronic kidney disease) stage 3, GFR 30-59 ml/min Instructions: ED Gout, ED Gout Diet Prescriptions: New oxycodone-acetaminophen [Percocet] 5-325 mg tablet 1 tab PO Q6H PRN (Reason: pain) 3 Days Qty: 12 0RF prednisone 10 mg tablet 10 mg PO DAILY Qty: 48 0RF Rx Instructions: 6 po qd x 3 days, 4 po qd x 3 days, 2 po qd x 3 days, 1 po qd x 3 days No Action potassium chloride 20 mEq tablet extended release 20 meq PO TID Verquvo 10 mg tablet 10 mg PO DAILY Rx Instructions: must administer with a meal/food nitroglycerin [Nitrostat] 0.4 mg tablet, sublingual 0.4 mg SL Q5M PRN (Reason: Pain) Qty: 25 3RF metolazone 2.5 mg tablet 2.5 mg PO .MONDAYS cholecalciferol (vitamin D3) 25 mcg (1,000 unit) tablet 25 mcg PO DAILY melatonin 5 mg tablet 5 mg PO HS PRN aspirin 81 MG tablet 81 mg PO DAILY@0800 albuterol sulfate 1 INHALER inhaler 1 - 2 puff INHALATION Q4H PRN PRN (Reason: Shortness Of Breath) Qty: 1 0RF icosapent ethyl [Vascepa] 1 gram capsule 1 g PO .COMPLEX Rx Instructions: 1 g PO Take 1 capsule AM, 2 capsules PM; oxycodone-acetaminophen [Percocet] 5-325 mg tablet 1 tab PO Q6H PRN (Reason: pain) 3 Days Qty: 12 0RF diazepam [Valium] 5 mg tablet 5 mg PO TID PRN (Reason: muscle spasm) 5 Days Qty: 15 0RF rosuvastatin 10 mg tablet 10 mg PO QHS furosemide 40 mg tablet 40 mg PO BID pantoprazole 40 mg tablet,delayed release (DR/EC) 40 mg PO DAILY Qty: 90 3RF isosorbide mononitrate 30 mg tablet extended release 24 hr 30 mg PO DAILY Qty: 90 3RF carvedilol 12.5 mg tablet 12.5 mg PO BID Qty: 180 3RF ranolazine 500 mg tablet extended release 12 hr 500 mg PO BID Qty: 180 3RF Primary Care Provider: Eleuterio Abreu Chi Referrals: Eleuterio Abreu Chi, MD [Primary Care Provider] - Activity Restrictions/Additional Instructions: Your symptoms/exam correlated with your elevated uric acid level indicate that your pain and swelling is most likely related to gout. Take the prednisone as directed to resolve the acute gout flare. Follow-up with your family doctor to discuss taking preventative medication and return to the ER should you have any further concerns or worsening of symptoms Print Language: Maori Disposition Disposition: Home, Self Care Discharge Date/Time: 01/03/24 03:00
[2024-01-03] MEDS: oxyCODONE 5 MG Tablet PO (02:48)
[2024-01-03 02:51] VITALS: BP 102/63; PULSE 83; RESP 16; TEMP 36.4; O2SAT 100
[2024-01-03 11:50] LABS: Pathologist Review Reviewed
== END 2024-01-03 03:00 | disposition home or self-care (01) ==
PROVIDERS: Emergency Provider Emergency Medicine; PCP Family Medicine Geriatric Medicine; Visit Provider Emergency Medicine
DX: M10.9 Gout, unspecified (principal); I50.9 Heart failure, unspecified; I13.0 Hypertensive heart and chronic kidney disease with heart failure and stage 1 through stage 4 chronic kidney disease, or unspecified chronic kidney disease; E11.22 Type 2 diabetes mellitus with diabetic chronic kidney disease; E11.40 Type 2 diabetes mellitus with diabetic neuropathy, unspecified; N18.30 Chronic kidney disease, stage 3 unspecified; M25.531 Pain in right wrist; E78.00 Pure hypercholesterolemia, unspecified; I25.10 Atherosclerotic heart disease of native coronary artery without angina pectoris; I25.5 Ischemic cardiomyopathy; F17.200 Nicotine dependence, unspecified, uncomplicated; Z79.82 Long term (current) use of aspirin; I25.2 Old myocardial infarction; B95.8 Unspecified staphylococcus as the cause of diseases classified elsewhere
CPT/HCPCS: 73110; 73562; 80048; 83605; 84550; 85025; 85652; 86140; 96374; 96375; 99283; A4216; J2405

== ENCOUNTER → 2024-02-07 | Outpatient (CLI) | payer MEDICARE, OTHER, SELFPAY ==
[2020-02-18 06:00] VITALS: BMI 28.0
[2024-02-07 15:59] LABS: PTHIN 386.7 pg/mL (18.4-80.1)
[2024-02-07 16:18] LABS: Albumin, Serum 3.3 g/dL (3.2-5.0); BUN 41 mg/dL (7-18); BUN/Creat Ratio 14.5 RATIO (10-20); Calcium,Total 8.9 mg/dL (8.5-10.1); Chloride 105 mmol/L (98-107); Creatinine, Serum 2.82 mg/dL (0.70-1.30); EST Glomerular Filtration Rate 24 mL/min (>60); Est Glom Filt Rate - Afr Amer 29 mL/min (>60); Glucose 142 mg/dL (74-106); Phosphorus 2.7 mg/dL (2.5-4.9); Potassium 4.7 mmol/L (3.5-5.1); Sodium Level 137 mmol/L (136-145)
== END | disposition home or self-care (01) ==
LOC: LAB 14:50
PROVIDERS: PCP Family Medicine Geriatric Medicine; Referring Provider Internal Medicine Nephrology; Visit Provider Internal Medicine Nephrology
DX: N18.4 Chronic kidney disease, stage 4 (severe) (principal); N25.81 Secondary hyperparathyroidism of renal origin
CPT/HCPCS: 36415; 80069; 82306; 83970

== ENCOUNTER 2024-02-10 19:36 | Inpatient (IN) | payer MEDICARE, OTHER, SELFPAY ==
[2020-02-18 06:00] VITALS: BMI 28.0
[2024-02-10] VITALS (7 sets, daily range): BP systolic 90–110; BP diastolic 74–81; PULSE 72–77; RESP 16–20; TEMP 36.4–36.6; O2SAT 95–100; BMI 23.8
[2024-02-10 20:11] LABS: Absolute Lymphocyte Count 0.79 X10^3/uL (0.83-4.51); Absolute Neutrophil Count 6.5 X10^3/uL (2.0-7.7); Basophil# 0.08 X10^3/uL; Basophil% 0.9 % (0-1); Eosinophil# 0.46 X10^3/uL; Eosinophils% 4.9 % (0-5); Hematocrit 34.5 % (40-54); Hemoglobin 10.7 g/dL (13.0-16.5); Lymphocyte # 0.79 X10^3/ul (0.83-4.51); Lymphocyte % 8.5 % (19-41); Mean Corpuscular Hgb 30.5 pg (27.0-32.0); Mean Corpuscular Volume 98.3 fL (80-94); Mean Platelet Vol. 11.6 fl (6.2-12.0); Monocyte# 1.17 X10^3/uL; Monocyte% 12.5 % (0-10); NRBC Flagged by Analyzer 0.3 % (0-5); Neutrophil # 6.54 X10^3/uL (2.7-7.7); POSITIVE COUNT YES; Platelet Count 88 K/mm3 (150-450); RBC Distribution Width SD 64.2 fl (35.1-43.9); Red Blood Count 3.51 M/mm3 (4.6-6.2); White Blood Count 9.3 K/mm3 (4.4-11.0)
[2024-02-10 20:40] LABS: Anion Gap 13 (5-15); BUN 52 mg/dL (7-18); BUN/Creat Ratio 14.5 RATIO (10-20); Calcium,Total 8.9 mg/dL (8.5-10.1); Chloride 100 mmol/L (98-107); Creatinine, Serum 3.58 mg/dL (0.70-1.30); EST Glomerular Filtration Rate 18 mL/min (>60); Est Glom Filt Rate - Afr Amer 22 mL/min (>60); Glucose 171 mg/dL (74-106); Potassium 6.1 mmol/L (3.5-5.1); Sodium Level 134 mmol/L (136-145); Troponin-I HS 28 pg/mL (3.0-78.0)
--- NOTE | 2024-02-10 20:42 | EKG12_ITS ---
Test Reason : WEAKNESS Blood Pressure : / mmHG Vent. Rate : 084 BPM Atrial Rate : 073 BPM P-R Int : 136 ms QRS Dur : 182 ms QT Int : 514 ms P-R-T Axes : 000 -65 102 degrees QTc Int : 607 ms Atrial-sensed ventricular-paced rhythm with intrinsic complexes Biventricular pacemaker detected Abnormal ECG Confirmed by ZOILA RATLIFF, JERARDO ([id number]), manager editorial SANDRA MADDOX ([id number]) on 02/11/2024 1:18:51 PM Referred By: SONIA Confirmed By:JERARDO CUMMINGS MD
[2024-02-10 20:57] LABS: Differential Indicated SCAN CRITERIA MET
[2024-02-10 21:02] LABS: Anisocytosis 2+; Differential Comment SCANNED; Hypochromasia 1+
[2024-02-10 21:04] LABS: Platelet Estimate MOD DEC (ADEQ); Platelet Morphology LARGE
[2024-02-10 21:05] LABS: Ovalocyte 1+
--- NOTE | 2024-02-10 21:17 | EDS_ITS ---
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) Abnormal findings on diagnostic imaging of heart and coronary circulation Mitral valve regurgitation, rheumatic Ischemic cardiomyopathy CKD (chronic kidney disease) stage 3, GFR 30-59 ml/min Type 2 diabetes mellitus Presence of stent in coronary artery (11/10/19) Pure hypercholesterolemia Essential (primary) hypertension Other senior care (current) drug therapy Automatic implantable cardiac defibrillator in situ Cardiomyopathy in other diseases classified elsewhere Abnormal echocardiogram Abnormal myocardial perfusion study Blurred vision Chest tightness Ventricular tachycardia Acute [place], subendocardial, subsequent episode of care Atherosclerotic heart disease of [place] coronary artery without angina pectoris Home Medications ?Medication ?Instructions ?Recorded ?Last Taken ?Type rosuvastatin 10 mg tablet 10 mg PO QHS cholesterol 09/22/19 08/24/20 History aspirin 81 mg tablet,delayed 81 mg PO DAILY@0800 HEALTH 08/25/20 12/11/21 History release MAINTENANCE albuterol sulfate 90 mcg/actuation 1 - 2 puff inhalation Q4H PRN PRN 08/26/20 Unknown Rx aerosol inhaler Shortness Of Breath ##1 furosemide 40 mg tablet 40 mg PO BID FLUID 03/09/21 Unknown History pantoprazole 40 mg tablet,delayed 40 mg PO DAILY #90 tabs 02/15/22 Unknown Rx release potassium chloride 20 mEq 20 meq PO TID 02/27/22 Unknown History tablet,extended release carvedilol 12.5 mg tablet 12.5 mg PO BID #180 tabs 03/18/23 Unknown Rx isosorbide mononitrate 30 mg 30 mg PO DAILY #90 tabs 03/18/23 Unknown Rx tablet,extended release 24 hr nitroglycerin 0.4 mg sublingual 0.4 mg sublingual Q5M PRN Pain #25 03/21/23 Unknown Rx tablet (Nitrostat) tabs vericiguat 10 mg tablet (Verquvo) 10 mg PO DAILY 03/21/23 Unknown History cholecalciferol (vitamin D3) 25 25 mcg PO DAILY 08/02/23 Unknown History mcg (1,000 unit) tablet ranolazine 500 mg tablet,extended 500 mg PO BID #180 tabs 09/09/23 Unknown Rx release,12 hr metolazone 2.5 mg tablet 2.5 mg PO .Mondays12/03/23 Unknown History colchicine 0.6 mg tablet 0.6 mg PO QDAY 01/22/24 Unknown History doxycycline monohydrate 100 mg 100 mg PO BID 01/22/24 Unknown History capsule febuxostat 40 mg tablet 40 mg PO QDAY 01/22/24 Unknown History Allergy/AdvReac Type Severity Reaction Status Date / Time FRANK Inhibitors Allergy cough Verified 02/10/24 19:39 atorvastatin (From Lipitor) Allergy myalgia Verified 02/10/24 19:39 gabapentin (From Neurontin) Allergy numbness Verified 02/10/24 19:39 Penicillins Allergy Hives Verified 02/10/24 19:39 Sulfa (Sulfonamide Allergy Hives Verified 02/10/24 19:39 Antibiotics) lisinopril AdvReac Intermediate Pain in Verified 02/10/24 19:39 joints bupropion AdvReac headaches Verified 02/10/24 19:39 and borderline psychotic Family History Father Myocardial infarction, Onset Age: 70 CAD (coronary artery disease) Hx of CABG Mother CAD (coronary artery disease) Diabetes Pacemaker Brother Myocardial infarction age of onset 40s Sister Myocardial infarction, Onset Age: 62 Rheumatic fever Son Hypertension Diabetes Daughter Diabetes Surgical History History of left heart catheterization (LHC) (~05/24/20) Presence of coronary angioplasty implant and graft (~05/22/19) History of herniorrhaphy Social History Smoking Status: Current every day smoker tobacco type: cigarettes quit status: considering quitting alcohol intake: current alcohol intake frequency: a few times a week Alcohol type: hard liquor substance use type: does not use caffeine: Yes Type: coffee Number of servings: 2 what type of physical activity do you participate in: none EXAM Physical Exam Const Vital Signs: 02/10/24 19:36 02/10/24 21:20 02/10/24 21:22 Temperature 97.6 F L Temperature Source Temporal Pulse Rate 74 Respiratory Rate 16 Respiratory Effort Short of Breath Respiratory Pattern Blood Pressure 90/74 Blood Pressure Mean 79 Pulse Ox 100 95 Oxygen Delivery Method Room Air Room Air 02/10/24 21:22 02/10/24 21:24 02/10/24 21:55 Temperature Temperature Source Pulse Rate 73 73 Respiratory Rate 19 H 18 20 H Respiratory Effort Respiratory Pattern Normal Blood Pressure 100/78 Blood Pressure Mean 85 Pulse Ox 100 95 Oxygen Delivery Method Room Air 02/10/24 21:57 02/10/24 22:08 02/10/24 22:56 Temperature 98 F Temperature Source Pulse Rate 73 72 77 Respiratory Rate 19 H 18 19 H Respiratory Effort Respiratory Pattern Blood Pressure 101/80 103/81 H 110/81 H Blood Pressure Mean 87 88 90 Pulse Ox 100 100 100 Oxygen Delivery Method Room Air Room Air [facility] MDM Narrative Medical decision making narrative: HISTORY OF PRESENT ILLNESS: 73-year-old male presents with weakness, shortness of breath the past week. Also notes yellowing of the skin or eyes. Notes decreased appetite. He endorses taking increased dose of Lasix for last several days. Endorses also taking p.o. potassium. Endorses decreased p.o. intake. REVIEW OF SYSTEMS: Pertinent positives: Weakness, decreased appetite, jaundice Pertinent negatives: Focal weakness, vomiting. PHYSICAL EXAM: Nursing triage notes reviewed, Vital signs reviewed Constitutional: please see mdm HENT: MMM Eyes: Pupils equal round and reactive to light, Extraocular muscles intact, no scleral icterus Neck: No stridor, no JVD, full neck ROM Lungs: Clear to auscultation, No wheezing or rales. No increased work of breathing, no conversational dyspnea, no accessory muscle use, no nasal flaring. No respiratory distress noted Heart: Regular rate and rhythm, No murmurs, No rubs and No gallops, 2+ distal pulses (radial, femoral, posterior tibial) in all extremities Abdomen: Soft, there is no tenderness, rigidity, rebound or guarding, no obvious peritoneal signs, no palpable pulsatile abdominal masses, no auscultated abdominal bruit : No CVAT Extremities: No edema Neuro: No focal neurological deficits, cranial nerves II through XII intact, 5/5 strength in all extremities. Intact sensation to light touch in all extremities, 2+ reflexes bilateral patella tendons. Normal gait. No ataxia. Skin: No obvious jaundice MEDICAL DECISION MAKING: Chief Complaint: Weakness External records reviewed: Reviewed prior hospitalization from 2022. Imaging reviewed: Prior echocardiogram shows ejection fraction 25% Factors affecting care: AAA, ischemic cardiomyopathy, CHF, PAD esophagus, CKD 3, type 2 diabetes, CAD status post stent, hyperlipidemia, hypertension, Social determinants of health: Elderly History obtained from others: Family Consults: Internal medicine MDM Narrative: The patient was initially hypotensive, afebrile and nontoxic-appearing. Exam without focal cardiopulmonary abnormalities. ALL IMAGES (IF OBTAINED) HAVE BEEN PERSONALLY REVIEWED AND INTERPRETED BY MYSELF. Protocol labs were placed while the patient was in the waiting room secondary to adverse department conditions including high patient volume and acuity. Labs reviewed as below: CBC showed no leukocytosis, noted anemia and thrombocytopenia (which are both worse than baseline) BMP showed evidence of severe hyperkalemia (6.1), DANISH on CKD, mild hyponatremia, no evidence of metabolic acidosis or endorgan hypoperfusion as evidenced by normal anion gap and bicarb on BMP High-sensitivity troponin is negative, no evidence of myocardial ischemia EKG with ventricular paced rhythm, left axis deviation, prolonged QT interval, no STEMI Once hyperkalemia identified an EKG was ordered stat. Patient was moved into a room with a monitored bed. Patient's EKG did not reveal changes associated with hyperkalemia. Gave calcium gluconate empirically as well as albuterol, insulin and dextrose for potassium shifts. Kept patient on the monitor. Made the patient to PCU topical telemetry monitoring and further electrolyte correction and nephrology consultation. The patient and/or family, caregivers express understanding. The patient and/or family, caregivers agrees with the plan. Shared decision making: I will have a discussion with the patient and or visitors regarding risk/benefits of further testing or admission. They will be made aware of of the risk/benefits inherent in this decision they will be given the opportunity to voice understanding. Total critical care time today provided was at least 0 minutes. This excludes separately billable procedures. Critical care time (if documented) is secondary to the patient having high probability of clinically significant/life threatening deterioration in the patient's condition which required my urgent intervention. Impression: 1. Hyperkalemia 2. DANISH on CKD 3. Hyponatremia Dispo: Admit to PCU (discussed with hospitalist Dr. Smith) This note was generated with [employer] dictation software. It may contain incorrect words, spelling, and punctuation that were not noted in review of the chart prior to signing. Lab Data Labs: Laboratory Results - last 24 hr 02/10/24 19:50 WBC 9.3 RBC 3.51 L Hgb 10.7 L Hct 34.5 L MCV 98.3 H MCH 30.5 MCHC 31.0 L RDW Std Deviation 64.2 H RDW Coeff of Jane 18.0 H Plt Count 88 L MPV 11.6 Immature Gran % (Auto) 3.200 H Neut % (Auto) 70.0 Lymph % (Auto) 8.5 L [place] % (Auto) 12.5 H Eos % (Auto) 4.9 Baso % (Auto) 0.9 Absolute Neuts (auto) 6.5 Absolute Lymphs (auto) 0.79 L Nucleated RBC % 0.3 Differential Comment SCANNED Platelet Estimate MOD DEC Plt Morphology Comment LARGE Hypochromasia 1+ Anisocytosis 2+ Ovalocytes 1+ Sodium 134 L Potassium 6.1 H* Chloride 100 Carbon Dioxide 21.0 Anion Gap 13 BUN 52 H Creatinine 3.58 H Est GFR (MDRD) Af Amer 22 L Est GFR (MDRD) Non-Af 18 L BUN/Creatinine Ratio 14.5 Glucose 171 H Calcium 8.9 Troponin I High Sens 28 Discharge Plan Triage Chief Complaint: Weakness ED Provider: Phil Monroe Dx/Rx/DC Orders Prescriptions: No Action potassium chloride 20 mEq tablet extended release 20 meq PO TID Verquvo 10 mg tablet 10 mg PO DAILY Rx Instructions: must administer with a meal/food nitroglycerin [Nitrostat] 0.4 mg tablet, sublingual 0.4 mg SL Q5M PRN (Reason: Pain) Qty: 25 3RF metolazone 2.5 mg tablet 2.5 mg PO .MONDAYS cholecalciferol (vitamin D3) 25 mcg (1,000 unit) tablet 25 mcg PO DAILY aspirin 81 MG tablet 81 mg PO DAILY@0800 albuterol sulfate 1 INHALER inhaler 1 - 2 puff INHALATION Q4H PRN PRN (Reason: Shortness Of Breath) Qty: 1 0RF rosuvastatin 10 mg tablet 10 mg PO QHS furosemide 40 mg tablet 40 mg PO BID pantoprazole 40 mg tablet,delayed release (DR/EC) 40 mg PO DAILY Qty: 90 3RF isosorbide mononitrate 30 mg tablet extended release 24 hr 30 mg PO DAILY Qty: 90 3RF carvedilol 12.5 mg tablet 12.5 mg PO BID Qty: 180 3RF ranolazine 500 mg tablet extended release 12 hr 500 mg PO BID Qty: 180 3RF Primary Care Provider: Eleuterio Abreu Chi Referrals: Eleuterio Abreu Chi, MD [Primary Care Provider] - Print Language: Pakistani
[2024-02-10] MEDS: 0.9% Normal Saline (500mL Bag) 500 ML 999 ML IV (21:28)
[2024-02-10] MEDS: Dextrose 10%-Water 250 ML 999 ML IV (21:54)
[2024-02-10] MEDS: Calcium Gluconate 1 GM/10 ML Vial IVP (21:55)
[2024-02-10] MEDS: Albuterol 2.5 MG/3 ML VIAL.NEB. INHALATION (21:55)
[2024-02-11] VITALS: BP 99/76; PULSE 76; RESP 18; O2SAT 99
--- NOTE | 2024-02-11 00:44 | HP.PCM_ITS ---
HPI - General General Date of Admission: 02/11/24 Date of Service: 02/11/24 Chief Complaint: Generalized weakness, hyperkalemia HPI Narrative LAUREL DARLING, is a 73 M who presents to the emergency room with 1 day of progressive weakness. Patient states she had onset of low appetite with nausea throughout the day that brought him into the emergency room this evening. Patient states he has had a recent diagnosis of gout for which she was put on colchicine and Uloric by his primary care physician. Laboratory studies were abnormal for potassium of 6.1 and a creatinine of 3.5 up from his baseline of in the twos. Patient does see Dr. Lai for chronic management of renal disease and has an appointment scheduled this as an outpatient. Currently the patient denies any chest pain, shortness of breath or fevers or chills but does have some mild nausea symptoms and feels weak and tired. He will be admitted for elevated potassium and acute on chronic renal disease. [facility] Medical History (Updated 02/11/24 @ 00:[address] 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) Abnormal findings on diagnostic imaging of heart and coronary circulation Mitral valve regurgitation, rheumatic Ischemic cardiomyopathy CKD (chronic kidney disease) stage 3, GFR 30-59 ml/min Type 2 diabetes mellitus Presence of stent in coronary artery (11/10/19) Pure hypercholesterolemia Essential (primary) hypertension Other senior care (current) drug therapy Automatic implantable cardiac defibrillator in situ Cardiomyopathy in other diseases classified elsewhere Abnormal echocardiogram Abnormal myocardial perfusion study Blurred vision Chest tightness Ventricular tachycardia Acute [place], subendocardial, subsequent episode of care Atherosclerotic heart disease of [place] coronary artery without angina pectoris Home Medications ?Medication ?Instructions ?Recorded ?Last Taken ?Type rosuvastatin 10 mg tablet 10 mg PO QHS cholesterol 09/22/19 08/24/20 History aspirin 81 mg tablet,delayed 81 mg PO DAILY@0800 HEALTH 08/25/20 12/11/21 History release MAINTENANCE albuterol sulfate 90 mcg/actuation 1 - 2 puff inhalation Q4H PRN PRN 08/26/20 Unknown Rx aerosol inhaler Shortness Of Breath ##1 furosemide 40 mg tablet 40 mg PO BID FLUID 03/09/21 Unknown History pantoprazole 40 mg tablet,delayed 40 mg PO DAILY #90 tabs 02/15/22 Unknown Rx release potassium chloride 20 mEq 20 meq PO TID 02/27/22 Unknown History tablet,extended release carvedilol 12.5 mg tablet 12.5 mg PO BID #180 tabs 03/18/23 Unknown Rx isosorbide mononitrate 30 mg 30 mg PO DAILY #90 tabs 03/18/23 Unknown Rx tablet,extended release 24 hr nitroglycerin 0.4 mg sublingual 0.4 mg sublingual Q5M PRN Pain #25 03/21/23 Unknown Rx tablet (Nitrostat) tabs vericiguat 10 mg tablet (Verquvo) 10 mg PO DAILY 03/21/23 Unknown History cholecalciferol (vitamin D3) 25 25 mcg PO DAILY 08/02/23 Unknown History mcg (1,000 unit) tablet ranolazine 500 mg tablet,extended 500 mg PO BID #180 tabs 09/09/23 Unknown Rx release,12 hr metolazone 2.5 mg tablet 2.5 mg PO .Mondays12/03/23 Unknown History colchicine 0.6 mg tablet 0.6 mg PO QDAY 01/22/24 Unknown History doxycycline monohydrate 100 mg 100 mg PO BID 01/22/24 Unknown History capsule febuxostat 40 mg tablet 40 mg PO QDAY 01/22/24 Unknown History Allergy/AdvReac Type Severity Reaction Status Date / Time FRANK Inhibitors Allergy cough Verified 02/10/24 19:39 atorvastatin (From Lipitor) Allergy myalgia Verified 02/10/24 19:39 gabapentin (From Neurontin) Allergy numbness Verified 02/10/24 19:39 Penicillins Allergy Hives Verified 02/10/24 19:39 Sulfa (Sulfonamide Allergy Hives Verified 02/10/24 19:39 Antibiotics) lisinopril AdvReac Intermediate Pain in Verified 02/10/24 19:39 joints bupropion AdvReac headaches Verified 02/10/24 19:39 and borderline psychotic Family History Father Myocardial infarction, Onset Age: 70 CAD (coronary artery disease) Hx of CABG Mother CAD (coronary artery disease) Diabetes Pacemaker Brother Myocardial infarction age of onset 40s Sister Myocardial infarction, Onset Age: 62 Rheumatic fever Son Hypertension Diabetes Daughter Diabetes Surgical History History of left heart catheterization (LHC) (~05/24/20) Presence of coronary angioplasty implant and graft (~05/22/19) History of herniorrhaphy Social History Smoking Status: Current every day smoker tobacco type: cigarettes quit status: considering quitting alcohol intake: current alcohol intake frequency: a few times a week Alcohol type: hard liquor substance use type: does not use caffeine: Yes Type: coffee Number of servings: 2 what type of physical activity do you participate in: none ROS Constitutional Constitutional: Reports fatigue; Denies chills or fever(s) Eyes Eyes: Denies blurry vision ENT HEENT: Denies abnormal hearing Cardiovascular Cardiovascular: Denies chest pain Respiratory/Chest Respiratory/Chest: Reports shortness of breath at rest Gastrointestinal Gastrointestinal: Reports nausea Genitourinary Genitourinary: Denies dysuria Musculoskeletal Musculoskeletal: Denies back pain Integumentary Integumentary: Denies dry skin Neurologic Neurologic: Denies abnormal speech Psychiatric Psychiatric: Denies anxiety Vital Signs Vital Signs Vital Signs: 02/10/24 19:36 02/10/24 21:20 02/10/24 21:22 Temperature 97.6 F L Temperature Source Temporal Pulse Rate 74 Respiratory Rate 16 Respiratory Effort Short of Breath Respiratory Pattern Blood Pressure 90/74 Blood Pressure Mean 79 Pulse Ox 100 95 Oxygen Delivery Method Room Air Room Air 02/10/24 21:22 02/10/24 21:24 02/10/24 21:55 Temperature Temperature Source Pulse Rate 73 73 Respiratory Rate 19 H 18 20 H Respiratory Effort Respiratory Pattern Normal Blood Pressure 100/78 Blood Pressure Mean 85 Pulse Ox 100 95 Oxygen Delivery Method Room Air 02/10/24 21:57 02/10/24 22:08 02/10/24 22:56 Temperature 98 F Temperature Source Pulse Rate 73 72 77 Respiratory Rate 19 H 18 19 H Respiratory Effort Respiratory Pattern Blood Pressure 101/80 103/81 H 110/81 H Blood Pressure Mean 87 88 90 Pulse Ox 100 100 100 Oxygen Delivery Method Room Air Room Air 02/11/24 00:00 Temperature Temperature Source Pulse Rate 76 Respiratory Rate 18 Respiratory Effort Respiratory Pattern Blood Pressure 99/76 Blood Pressure Mean 83 Pulse Ox 99 Oxygen Delivery Method Room Air Physical Exam Const alert and oriented x3 General Appearance: cooperative HEENT normocephalic and head/scalp atraumatic Eyes PERRL Neck no lymphadenopathy Lymph Lymphatic: no lymphadenopathy noted Resp normal respiratory effort, normal air movement and clear to auscultation bilaterally Cardio regular rate, regular rhythm, S1 normal heart sound, S2 normal heart sound and no murmurs GI normal to inspection, nondistended, normoactive bowel sounds Extremity normal capillary refill General Extremity: no tenderness to palpation of joints or extremities Skin General Skin Exam: no breakdown Neuro no focal motor deficits and no sensory deficits noted Psych Appearance: appropriate Results Lab / Micro Data 02/10/24 19:50 02/10/24 19:50 Labs: Laboratory Results - last 24 hr 02/10/24 19:50: WBC 9.3, RBC 3.51 L, Hgb 10.7 L, Hct 34.5 L, MCV 98.3 H, MCH 30.5, MCHC 31.0 L, RDW Std Deviation 64.2 H, RDW Coeff of Jane 18.0 H, Plt Count 88 L, MPV 11.6, Immature Gran % (Auto) 3.200 H, Neut % (Auto) 70.0, Lymph % (Auto) 8.5 L, [place] % (Auto) 12.5 H, Eos % (Auto) 4.9, Baso % (Auto) 0.9, Absolute Neuts (auto) 6.5, Absolute Lymphs (auto) 0.79 L, Nucleated RBC % 0.3, Differential Comment SCANNED, Platelet Estimate MOD DEC, Plt Morphology Comment LARGE, Hypochromasia 1+, Anisocytosis 2+, Ovalocytes 1+, Sodium 134 L, Potassium 6.1 H*, Chloride 100, Carbon Dioxide 21.0, Anion Gap 13, BUN 52 H, Creatinine 3.58 H, Est GFR (MDRD) Af Amer 22 L, Est GFR (MDRD) Non-Af 18 L, BUN/Creatinine Ratio 14.5, Glucose 171 H, Calcium 8.9, Troponin I High Sens 28 Assessment & Plan Assessment/Plan (1) Gout: (2) Acute renal failure (ARF): (3) Hyperkalemia: PLAN: Plan 1. Acute on chronic renal failure with hyperkalemia?admit patient to progressive care unit. Patient has received insulin, calcium gluconate and albuterol in the emergency room department to correct his potassium level. Will repeat BMP in the morning. Will also add IV fluid normal saline at a rate of 100 cc/h. 2. Gout?patient reports having had pain in his knee this has subsided therefore we will hold both colchicine and Uloric which were started recently prior to this hyperkalemic episode 3. DVT prophylaxis?SCDs Charges/Coding Visit Charges Inpatient E&M: 82565 Init Hosp L2
[2024-02-11 01:27] VITALS: BMI 23.8
[2024-02-11 02:04] VITALS: BP 134/96; PULSE 82; RESP 18; TEMP 36.7; O2SAT 100
[2024-02-11] MEDS: 0.9% Normal Saline (1000mL) 1,000 ML 75 ML IV (02:08)
[2024-02-11 06:18] VITALS: BP 104/82; PULSE 76; RESP 18; TEMP 36.6; O2SAT 100
[2024-02-11 07:01] LABS: Absolute Lymphocyte Count 0.57 X10^3/uL (0.83-4.51); Absolute Neutrophil Count 7.5 X10^3/uL (2.0-7.7); Basophil# 0.05 X10^3/uL; Basophil% 0.5 % (0-1); Hematocrit 33.2 % (40-54); Hemoglobin 10.5 g/dL (13.0-16.5); Lymphocyte # 0.57 X10^3/ul (0.83-4.51); Lymphocyte % 5.9 % (19-41); Mean Corp Hgb Conc 31.6 g/dL (32-36); Mean Corpuscular Hgb 30.8 pg (27.0-32.0); Mean Corpuscular Volume 97.4 fL (80-94); Mean Platelet Vol. 12.5 fl (6.2-12.0); Monocyte# 1.21 X10^3/uL; Monocyte% 12.6 % (0-10); NRBC Flagged by Analyzer 0.4 % (0-5); Neutrophil # 7.52 X10^3/uL (2.7-7.7); POSITIVE COUNT YES; POSITIVE DIFFERENTIAL YES; Platelet Count 67 K/mm3 (150-450); RBC Distribution Width CV 17.9 % (11.6-14.6); RBC Distribution Width SD 62.7 fl (35.1-43.9); Red Blood Count 3.41 M/mm3 (4.6-6.2); White Blood Count 9.6 K/mm3 (4.4-11.0)
[2024-02-11 07:42] LABS: Anion Gap 11 (5-15); BUN 54 mg/dL (7-18); BUN/Creat Ratio 14.9 RATIO (10-20); Calcium,Total 8.7 mg/dL (8.5-10.1); Chloride 101 mmol/L (98-107); Creatinine, Serum 3.62 mg/dL (0.70-1.30); EST Glomerular Filtration Rate 18 mL/min (>60); Est Glom Filt Rate - Afr Amer 21 mL/min (>60); Estimated Creatinine Clearance 20.25 ml/min; Glucose 138 mg/dL (74-106); Potassium 5.8 mmol/L (3.5-5.1); Sodium Level 133 mmol/L (136-145)
--- NOTE | 2024-02-11 08:41 | CON.PCM.RE_ITS ---
Assessment & Plan Assessment/Plan (1) Acute renal failure (ARF): PLAN: Creatinine 3.62 eGFR 21cc/min from baseline 2.0 to 2.8 due to poor oral intake on diuretics at home. Holding diuretics for now. DC iv fluids after current bag complete. Check renal US for urinary retention. (2) CKD (chronic kidney disease) stage 4, GFR 15-29 ml/min: PLAN: baseline creatinine 2.0 to 2.8 (3) Hyperkalemia: PLAN: due to potassium supplements, consumption of OJ over weekend, DANISH. Kayexalate 30g po today (4) Ischemic cardiomyopathy: (5) Essential (primary) hypertension: (6) Type 2 diabetes mellitus: QUALIFIERS: Diabetes mellitus complication status: with other specified complication Diabetes mellitus skilled nursing insulin use: without ferry terminal agent use Qualified Code(s): E11.69 - Type 2 diabetes mellitus with other specified complication HPI Consult Data Date of Consult: 02/11/24 HPI Narrative HPI Narrative: LAUREL DARLING, is a 73 M who presents to the emergency room with progressive weakness, nausea, decreased appetite over weekend. Creatinine 3.62 eGFR 21cc/min with potassium 5.8. Baseline creatinine in mid 2 range with creatinine 2.82 eGFR 24cc/min, potassium 4.7 on 02/07/24. He has CKD stage 4 due to cardiorenal syndrome, diabetes, hypertension. He denies chest pain, shortness of breath at rest but has dyspnea with exertion. He has a history of CHF on diuretics with potassium supplements three times a day. He has ischemic CMP with LVEF 25% on echo from 09/13/22. He continues to smoke but was not able to over weekend due to not feeling well. He has decreased urinary output past several days, not taking his diuretics. [facility] Medical History (Updated 02/11/24 @ 08:[address] 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) (~06/22/21) Abnormal findings on diagnostic imaging of heart and coronary circulation Mitral valve regurgitation, rheumatic Ischemic cardiomyopathy CKD (chronic kidney disease) stage 3, GFR 30-59 ml/min Type 2 diabetes mellitus Presence of stent in coronary artery (11/10/19) Pure hypercholesterolemia Essential (primary) hypertension Other ferry terminal agent (current) drug therapy Automatic implantable cardiac defibrillator in situ Cardiomyopathy in other diseases classified elsewhere Abnormal echocardiogram Abnormal myocardial perfusion study Blurred vision Chest tightness Ventricular tachycardia Acute MS, subendocardial, subsequent episode of care Atherosclerotic heart disease of [place] coronary artery without angina pectoris Home Medications ?Medication ?Instructions ?Recorded ?Last Taken ?Type rosuvastatin 10 mg tablet 10 mg PO QHS cholesterol 09/22/19 08/24/20 History aspirin 81 mg tablet,delayed 81 mg PO DAILY@0800 HEALTH 08/25/20 12/11/21 History release MAINTENANCE albuterol sulfate 90 mcg/actuation 1 - 2 puff inhalation Q4H PRN PRN 08/26/20 Unknown Rx aerosol inhaler Shortness Of Breath ##1 furosemide 40 mg tablet 40 mg PO BID FLUID 03/09/21 Unknown History pantoprazole 40 mg tablet,delayed 40 mg PO DAILY #90 tabs 02/15/22 Unknown Rx release potassium chloride 20 mEq 20 meq PO TID 02/27/22 Unknown History tablet,extended release carvedilol 12.5 mg tablet 12.5 mg PO BID #180 tabs 03/18/23 Unknown Rx isosorbide mononitrate 30 mg 30 mg PO DAILY #90 tabs 03/18/23 Unknown Rx tablet,extended release 24 hr nitroglycerin 0.4 mg sublingual 0.4 mg sublingual Q5M PRN Pain #25 03/21/23 Unknown Rx tablet (Nitrostat) tabs vericiguat 10 mg tablet (Verquvo) 10 mg PO DAILY 03/21/23 Unknown History cholecalciferol (vitamin D3) 25 25 mcg PO DAILY 08/02/23 Unknown History mcg (1,000 unit) tablet ranolazine 500 mg tablet,extended 500 mg PO BID #180 tabs 09/09/23 Unknown Rx release,12 hr metolazone 2.5 mg tablet 2.5 mg PO .Mondays12/03/23 Unknown History colchicine 0.6 mg tablet 0.6 mg PO QDAY 01/22/24 Unknown History doxycycline monohydrate 100 mg 100 mg PO BID 01/22/24 Unknown History capsule febuxostat 40 mg tablet 40 mg PO QDAY 01/22/24 Unknown History Allergy/AdvReac Type Severity Reaction Status Date / Time FRANK Inhibitors Allergy cough Verified 02/10/24 19:39 atorvastatin (From Lipitor) Allergy myalgia Verified 02/10/24 19:39 gabapentin (From Neurontin) Allergy numbness Verified 02/10/24 19:39 Penicillins Allergy Hives Verified 02/10/24 19:39 Sulfa (Sulfonamide Allergy Hives Verified 02/10/24 19:39 Antibiotics) lisinopril AdvReac Intermediate Pain in Verified 02/10/24 19:39 joints bupropion AdvReac headaches Verified 02/10/24 19:39 and borderline psychotic Family History Father Myocardial infarction, Onset Age: 70 CAD (coronary artery disease) Hx of CABG Mother CAD (coronary artery disease) Diabetes Pacemaker Brother Myocardial infarction age of onset 40s Sister Myocardial infarction, Onset Age: 62 Rheumatic fever Son Hypertension Diabetes Daughter Diabetes Surgical History History of left heart catheterization (LHC) (~05/24/20) Presence of coronary angioplasty implant and graft (~05/22/19) History of herniorrhaphy Social History Smoking Status: Current every day smoker tobacco type: cigarettes quit status: considering quitting alcohol intake: current alcohol intake frequency: a few times a week Alcohol type: hard liquor substance use type: does not use caffeine: Yes Type: coffee Number of servings: 2 what type of physical activity do you participate in: none ROS Constitutional Constitutional: Reports weakness; Denies chills or fever(s) Eyes Eyes: Denies loss of vision ENT HEENT: Denies nasal congestion Cardiovascular Cardiovascular: Reports dyspnea on exertion; Denies chest pain, edema or syncope Respiratory/Chest Respiratory/Chest: Reports dyspnea on exertion; Denies productive cough or shortness of breath at rest Gastrointestinal Gastrointestinal: Reports abdominal pain, anorexia, diarrhea, nausea and vomiting; Denies hematemesis, hematochezia or melena Genitourinary Genitourinary: Reports change in urinary stream, difficulty urinating and urinary hesitancy Neurologic Neurologic: Reports weakness; Denies syncope or tremor(s) Psychiatric Psychiatric: Denies anxiety, confusion or depression Hematologic/Lymphatic Hematologic/Lymphatic: Reports anemia Physical Exam Const alert, oriented x3 and no apparent distress General Appearance: well developed HEENT normocephalic Resp clear to auscultation bilaterally Resp Narrative: diminished Cardio regular rate Cardio Narrative: pacemaker GI non-tender and non-distended Auscultation: normoactive bowel sounds Palpation: soft Back/Spine normal ROM Extremity no clubbing, cyanosis or edema Skin no wounds Neuro CN's II-XII intact bilaterally Psych cooperative Lab / Micro Data 02/11/24 06:01 02/11/24 16:03 Labs: Laboratory Results - last 24 hr 02/10/24 19:50: WBC 9.3, RBC 3.51 L, Hgb 10.7 L, Hct 34.5 L, MCV 98.3 H, MCH 30.5, MCHC 31.0 L, RDW Std Deviation 64.2 H, RDW Coeff of Jane 18.0 H, Plt Count 88 L, MPV 11.6, Immature Gran % (Auto) 3.200 H, Neut % (Auto) 70.0, Lymph % (Auto) 8.5 L, Kimball % (Auto) 12.5 H, Eos % (Auto) 4.9, Baso % (Auto) 0.9, Absolute Neuts (auto) 6.5, Absolute Lymphs (auto) 0.79 L, Nucleated RBC % 0.3, Differential Comment SCANNED, Platelet Estimate MOD DEC, Plt Morphology Comment LARGE, Hypochromasia 1+, Anisocytosis 2+, Ovalocytes 1+, Sodium 134 L, Potassium 6.1 H*, Chloride 100, Carbon Dioxide 21.0, Anion Gap 13, BUN 52 H, Creatinine 3.58 H, Est GFR (MDRD) Af Amer 22 L, Est GFR (MDRD) Non-Af 18 L, BUN/Creatinine Ratio 14.5, Glucose 171 H, Calcium 8.9, Troponin I High Sens 28 02/11/24 06:01: WBC 9.6, RBC 3.41 L, Hgb 10.5 L, Hct 33.2 L, MCV 97.4 H, MCH 30.8, MCHC 31.6 L, RDW Std Deviation 62.7 H, RDW Coeff of Jane 17.9 H, Plt Count 67 L, MPV 12.5 H, Immature Gran % (Auto) 3.000 H, Neut % (Auto) 78.0 H, Lymph % (Auto) 5.9 L, Kimball % (Auto) 12.6 H, Eos % (Auto) 0.0, Baso % (Auto) 0.5, Absolute Neuts (auto) 7.5, Absolute Lymphs (auto) 0.57 L, Nucleated RBC % 0.4, S odium 133 L, Potassium 5.8 H, Chloride 101, Carbon Dioxide 21.0, Anion Gap 11, B UN 54 H, Creatinine 3.62 H, Estim Creat Clear Calc 20.25, Est GFR (MDRD) Af Amer 21 L, Est GFR (MDRD) Non-Af 18 L, BUN/Creatinine Ratio 14.9, Glucose 138 H, Calcium 8.7
[2024-02-11 08:59] VITALS: BP 99/69; PULSE 75; RESP 18; TEMP 36.3; O2SAT 100
[2024-02-11] MEDS: Cholecalciferol (VIT D3) 25 MCG TABLET (1,000 UNITS) PO (09:03)
[2024-02-11] MEDS: Pantoprazole Sodium 40 MG Tablet PO (09:03)
[2024-02-11] MEDS: Ranolazine 500 MG Tablet PO ×2 (09:03→21:11)
[2024-02-11] MEDS: Aspirin E.C. 81 MG Tablet PO (09:04)
[2024-02-11] MEDS: Carvedilol 12.5 MG Tablet PO ×2 (09:04→16:11)
--- NOTE | 2024-02-11 09:46 | US_ITS ---
STUDY: RENAL ULTRASOUND - COMPLETE REASON FOR EXAM: Male, 73 years old. jane -- on ckd stage 4, check for urinary retention TECHNIQUE: Ultrasound evaluation of the kidneys was performed with real-time and static hyde-scale imaging. COMPARISON: None. FINDINGS: RIGHT KIDNEY: Normal location of the right kidney, which is normal in size. The right kidney measures 10.5 x 3.5 x 4.4 cm. There is a thin cortex of the right kidney. The renal cortex measures 0.6 cm. There are increased cortical echoes and prominence of the renal pyramids. Small cyst measuring approximately 1.1 x 1 cm. There are no right renal calculi. There is no right hydronephrosis. DISTAL RIGHT URETER: There is non-visualization of the distal right ureter. There is no demonstrated right ureterovesical junction calculus. There is a visualized right ureteral jet. LEFT KIDNEY: Normal location of the left kidney, which is normal in size. The left kidney measures 9.8 x 3.8 x 4.8 cm. There is a thin cortex of the left kidney. The renal cortex measures 0.9 cm. There are diffusely increased cortical echoes and prominence of the renal pyramids There is no left renal mass or cyst. There are no left renal calculi. There is no left hydronephrosis. DISTAL LEFT URETER: There is non-visualization of the distal left ureter. There is no demonstrated left ureterovesical junction calculus. There is a visualized left ureteral jet. BLADDER: The distended urinary bladder has a volume of 15 ml.. There is a normal wall thickness of the distended urinary bladder. There is no demonstrated mass within the urinary bladder. There are no demonstrated bladder calculi. US/Kidney and Bladder IMPRESSION: Findings consistent with nonspecific renal parenchymal disease. No evidence for hydronephrosis. Small right cyst. Electronically Signed: Nathaniel Alcantara MD at 17:33 EDT ,
[2024-02-11] MEDS: Sodium Polystyrene Sulfonate 15 GM/60 ML UDC 30 GM PO (10:28)
[2024-02-11] MEDS: Ondansetron 4 MG/2 ML Vial IV (10:31)
--- NOTE | 2024-02-11 12:56 | CASEMGMT ---
XIOMY STINSON Assessment Face to Face with patient for initial transition planning/care coordination assessment. XIOMY STINSON introduced self and role at [facility], pt voices understanding. Pt is A&Ox4 and is resting comfortably in bed and is calm. Care providers, pharmacy, and demographics verified. Admitting dx: Acute on chronic Renal Failure. Pt reports that he does not need HD at this time. LACE Strata: 3 PCP: [facility] Specialists: Dr. Lai (Nephro), [facility], Pt states that he also sees a vascular Dr and believes that it is Dr. Cruz Preferred Pharmacy: [facility] Insurance: [facility] A/B, [facility] supplement Prescription Benefit: Yes LNOK: Ambrosio Stout(Son), Tiffany Stephanie (Aron) Living Arrangements: Pt lives alone in a 2 story home with a FFSU and 3 steps to enter ADLs/IADLs: Ind Transportation: Self, Neighbors, Daughter DME: Cane, Pacer HHC/SNF: Denies Hx or needs Pt?s goal: home Plan: home no needs. 6-click is 24. Pt denies the need for HHC, SNF, OP Tx. Pt states that he feels safe discharging home with no additional needs once medically ready. Pt denies further questions or concerns at this time. Darrius Reece RN, CM
[2024-02-11 15:00] VITALS: BP 100/77; PULSE 74; RESP 16; TEMP 36.3; O2SAT 100
[2024-02-11 16:29] LABS: Anion Gap 12 (5-15); BUN 59 mg/dL (7-18); BUN/Creat Ratio 14.2 RATIO (10-20); Chloride 102 mmol/L (98-107); Creatinine, Serum 4.15 mg/dL (0.70-1.30); EST Glomerular Filtration Rate 15 mL/min (>60); Est Glom Filt Rate - Afr Amer 18 mL/min (>60); Estimated Creatinine Clearance 17.66 ml/min; Glucose 126 mg/dL (74-106); Potassium 5.7 mmol/L (3.5-5.1); Sodium Level 134 mmol/L (136-145)
--- NOTE | 2024-02-11 18:59 | PCM.HOSP.N ---
Hospitalist Note Patient was seen and examined briefly today, nephrology ordered a ultrasound of the kidneys which showed findings consistent with nonspecific renal parenchymal disease, there is no evidence for hydronephrosis. Patient will remain on his present medications and fluid administration will be adjusted per nephrology. I have decided to repeat the patient's echocardiogram-his last echocardiogram over a year ago showed an EF of 25% with severe mitral regurg
--- NOTE | 2024-02-11 19:03 | ECHOCS_ITS ---
Reason For Study: CAD/ASHD Procedure This was a 2D Doppler, Color Flow transthoracic echocardiogram. Contrast injection was performed. Exam performed portable in patient room. Left Ventricle Severely dilated left ventricle. Severe global left ventricular systolic dysfunction. The left ventricular ejection fraction is 15 %. There is severe global hypokinesis of the left ventricle. Right Ventricle Normal RV size. ICD or pacer leads identified within the right ventricle. Normal systolic function. Atria The left atrium is moderately enlarged. The right atrium is moderately enlarged. Mitral Valve Mild diffuse mitral valve thickening. Moderately severe (3+) eccentric mitral valve insufficiency. Tricuspid Valve Normal tricuspid valve. Moderate (2+) tricuspid valve insufficiency. Pulmonary artery systolic pressure is 53 mmHg. Aortic Valve Trisinus/trileaflet aortic valve. Pulmonic Valve Normal pulmonic valve. Great Vessels Normal aortic root. The pulmonary artery is normal size. The inferior vena cava is dilated. Pericardium/Pleural No pericardial effusion. Medication Diluted definity 2.0ml given slow IV push to enhance endocardial definition. MMode/2D Measurements & Calculations LVIDd: 8.6 cm IVSd: 0.71 cm Ao root diam: 3.9 cm LVIDs: 7.6 cm LVPWd: 0.92 cm RVDd: 4.5 cm FS: 11.2 % LAV(MOD-bp): 139.6 ml LVAd ap4: 86.2 cm2 SV(MOD-sp4): 81.5 ml LAV(MOD-bp) Indexed: 69.2 ml/m2 LVLd ap4: 12.4 cm LAV(MOD-sp2): 134.4 ml EDV(MOD-sp4): 498.9 ml LAV(MOD-sp4): 137.1 ml EDV(sp4-el): 506.7 ml LVAs ap4: 75.9 cm2 LVLs ap4: 11.3 cm ESV(MOD-sp4): 417.3 ml ESV(sp4-el): 432.2 ml EF(MOD-sp4): 16.3 % EF(sp4-el): 14.7 % SV(sp4-el): 74.5 ml LA A4 area: 31.6 cm2 LA dimension(2D): 4.9 cm RA A4 area: 26.1 cm2 TAPSE: 2.1 cm Time Measurements MV dec time: 0.11 sec Doppler Measurements & Calculations MV E max tom: 91.8 cm/sec Lat Peak E' Tom: 3.6 cm/sec Med Peak E' Tom: 3.9 cm/sec MV A max tom: 76.4 cm/sec E/E' lat: 25.8 E/E' med: 23.7 MV E/A: 1.2 MV V2 max: 81.0 cm/sec MV P1/2t max tom: 82.9 cm/sec Ao V2 max: 83.6 cm/sec MV max P.6 mmHg MV P1/2t: 37.8 msec Ao max P.8 mmHg MV V2 mean: 45.8 cm/sec MV dec slope: 642.8 cm/sec2 Ao V2 mean: 59.1 cm/sec MV mean P.98 mmHg MVA(P1/2t): 5.8 cm2 Ao mean P.5 mmHg MV V2 VTI: 13.8 cm Ao V2 VTI: 11.3 cm AV (velocity ratio): 0.91 LV V1 max: 72.0 cm/sec PA V2 max: 51.8 cm/sec TR max tom: 338.5 cm/sec LV V1 max P.1 mmHg PA V2 mean: 38.2 cm/sec TR max P.8 mmHg LV V1 mean P.00 mmHg LV V1 mean: 44.9 cm/sec LV V1 VTI: 10.3 cm ECHO/Echo Complete W/ Contrast Interpretation Summary Severely dilated left ventricle. Severe global left ventricular systolic dysfunction. The left ventricular ejection fraction is 15 %. Moderately severe (3+) eccentric mitral valve insufficiency. Pulmonary artery systolic pressure is 53 mmHg. Compared to previous study, the left ventricular systolic function has worsened .. Ordering Physician: Saul Butler Referring Physician: Eleuterio Abreu Chi Performed By: Marilyn Weaver, CHANCECS, RVT
[2024-02-11 21:00] VITALS: BP 100/76; PULSE 80; RESP 18; TEMP 36.2; O2SAT 100
[2024-02-11] MEDS: Rosuvastatin Calcium 5 MG Tablet 10 MG PO (21:11)
[2024-02-11] MEDS: Sodium Polystyrene Sulfonate 15 GM/60 ML UDC PO (21:17)
[2024-02-12 03:00] VITALS: BP 102/68; PULSE 83; RESP 18; TEMP 35.8; O2SAT 100
[2024-02-12 07:33] LABS: Anion Gap 11 (5-15); BUN 65 mg/dL (7-18); BUN/Creat Ratio 16.5 RATIO (10-20); Calcium,Total 8.1 mg/dL (8.5-10.1); Chloride 101 mmol/L (98-107); Creatinine, Serum 3.95 mg/dL (0.70-1.30); EST Glomerular Filtration Rate 16 mL/min (>60); Est Glom Filt Rate - Afr Amer 19 mL/min (>60); Estimated Creatinine Clearance 18.55 ml/min; Glucose 124 mg/dL (74-106); Potassium 4.5 mmol/L (3.5-5.1); Sodium Level 133 mmol/L (136-145)
--- NOTE | 2024-02-12 08:26 | PN.HOSP_ITS ---
Reason for Visit Reason for Visit: Diagnoses Hyperkalemia (02/11/24) Gout, unspecified (02/11/24) Acute kidney failure, unspecified (02/11/24) Subjective Subjective Patient is a 73-year-old gentleman admitted with progressive generalized weakness as well as dyspnea. Patient was diagnosed with acute on chronic renal failure with hyperkalemia on admission admitted to monitored bed for further management Objective Data Objective Data Vital Signs: Vital Signs Temp Pulse Resp BP Pulse Ox O2 Del Method 96.5 F L 83 18 102/68 100 Room Air 02/12/24 03:00 02/12/24 03:00 02/12/24 03:00 02/12/24 03:00 02/12/24 03:00 02/12/24 03:00 Oxygen Delivery Method Room Air Weight: 79.9 kg Body Mass Index (BMI) 23.8 Intake & Output: Intake and Output for Last 24 Hours 02/10/24 02/11/24 02/12/24 23:59 23:59 23:59 Intake Total 125 / 125 1819 360 / 360 Output Total 50 / 50 Balance 125 / 125 1769 360 / 360 Lab / Micro Data 02/12/24 06:18 02/12/24 06:18 Labs: Laboratory Results - last 24 hr 02/11/24 16:03: Sodium 134 L, Potassium 5.7 H, Chloride 102, Carbon Dioxide 20.0 L, Anion Gap 12, BUN 59 H, Creatinine 4.15 H, Estim Creat Clear Calc 17.66, Est GFR (MDRD) Af Amer 18 L, Est GFR (MDRD) Non-Af 15 L, BUN/Creatinine Ratio 14.2, Glucose 126 H, Calcium 9.0 02/12/24 06:18: Sodium 133 L, Potassium 4.5, Chloride 101, Carbon Dioxide 21.0, Anion Gap 11, BUN 65 H, Creatinine 3.95 H, Estim Creat Clear Calc 18.55, Est GFR (MDRD) Af Amer 19 L, Est GFR (MDRD) Non-Af 16 L, BUN/Creatinine Ratio 16.5, G lucose 124 H, Calcium 8.1 L Radiography Diagnostic Testing: Radiology Impression Renal Ultrasound 02/11/24 09:46 IMPRESSION: Findings consistent with nonspecific renal parenchymal disease. No evidence for hydronephrosis. Small right cyst. Electronically Signed: Nathaniel Alcantara MD at 17:33 EDT , Physical Exam Narrative GENERAL: cooperative HEENT: Atraumatic; normocephalic EYES; Anicteric, Normal Conjunctiva NECK; supple, normal thyroid, RESPIRATORY: Diminished to auscultation CARDIOVASCULAR: Regular S1 S2, GI: soft, normoactive bowel sounds, : No Renal angle tenderness; EXTREMITIES: No edema, no clubbing, MUSCULOSKELETAL: no muscle wasting NEURO: Awake; no lateralizing signs. SKIN: No Rash PSYCH; Flat affect Assessment & Plan Assessment/Plan (1) Gout: (2) Acute renal failure (ARF): (3) Hyperkalemia: PLAN: Plan Patient is a 73-year-old gentleman admitted with progressive generalized weakness as well as dyspnea. Patient was diagnosed with acute on chronic renal failure with hyperkalemia on admission admitted to monitored bed for further management 1. Acute on chronic renal failure ? Secondary to suspected ischemic ATN from hypotension. Renal ultrasound obtained did not show any hydronephrosis seen in consultation by nephrology recommendation is for patient's diuretics to be held with subsequent monitoring of daily electrolytes ordered 2. Hyperkalemia Secondary to above treated per protocol repeat potassium levels ordered for a.m. 3. Gout ? Patient is on febuxostat as well as colchicine 5. Dyslipidemia ?Patient is on statin therapy, continued at home dose 6. GERD with Zheng's esophagus ? Patient is on PPI 7. Hypertension ? Blood pressure controlled, home medications continued with dose adjustment as needed 8. Ischemic cardiomyopathy ? Status post AICD placement 9. Diabetes mellitus type 2 ? Previously on insulin 10. Coronary artery disease ? With previous PCI 11. Chronic congestive heart failure with reduced ejection fraction ? Patient is on furosemide metolazone as well as vericiguat. 2D echo obtained on 08/17/2023 demonstrated Severely dilated left ventricle. Severe global left ventricular systolic dysfunction. The left ventricular ejection fraction is 15 %. Moderately severe (3+) eccentric mitral valve insufficiency. Pulmonary artery systolic pressure is 53 mmHg. Compared to previous study, the left ventricular systolic function has worsened. -Plan is for patient to resume care with cardiology following discharge 12. DVT prophylaxis ? On enoxaparin, Dose adjusted for kidney function Time spent in the patient's overall evaluation,decision-making process, review of diagnostic data, adjustment of management, discussion with other providers, nursing nursing and ancillary staff involved in patient's care documentation, 55 minutes Charges/Coding Visit Charges Inpatient E&M: 53302 [facility] Hosp L3
--- NOTE | 2024-02-12 08:28 | PN.RENAL_ITS ---
Subjective Subjective denies nausea, shortness of breath, chest pain. Feeling better. Urine output improved. Creatinine improved, potassium improved. Echo in progress Objective Data Objective Data Vital Signs: Vital Signs Temp Pulse Resp BP Pulse Ox O2 Del Method 96.5 F L 83 18 102/68 100 Room Air 02/12/24 03:00 02/12/24 03:00 02/12/24 03:00 02/12/24 03:00 02/12/24 03:00 02/12/24 03:00 Oxygen Delivery Method Room Air Weight: 79.9 kg Body Mass Index (BMI) 23.8 Intake & Output: Intake and Output for Last 24 Hours 02/10/24 02/11/24 02/12/24 23:59 23:59 23:59 Intake Total 125 / 125 1819 360 / 360 Output Total 50 / 50 Balance 125 / 125 1769 360 / 360 Lab / Micro Data 02/12/24 06:18 02/12/24 06:18 Labs: Laboratory Results - last 24 hr 02/11/24 16:03: Sodium 134 L, Potassium 5.7 H, Chloride 102, Carbon Dioxide 20.0 L, Anion Gap 12, BUN 59 H, Creatinine 4.15 H, Estim Creat Clear Calc 17.66, Est GFR (MDRD) Af Amer 18 L, Est GFR (MDRD) Non-Af 15 L, BUN/Creatinine Ratio 14.2, Glucose 126 H, Calcium 9.0 02/12/24 06:18: Sodium 133 L, Potassium 4.5, Chloride 101, Carbon Dioxide 21.0, Anion Gap 11, BUN 65 H, Creatinine 3.95 H, Estim Creat Clear Calc 18.55, Est GFR (MDRD) Af Amer 19 L, Est GFR (MDRD) Non-Af 16 L, BUN/Creatinine Ratio 16.5, G lucose 124 H, Calcium 8.1 L Radiography Diagnostic Testing: Radiology Impression Renal Ultrasound 02/11/24 09:46 IMPRESSION: Findings consistent with nonspecific renal parenchymal disease. No evidence for hydronephrosis. Small right cyst. Electronically Signed: Nathaniel Alcantara MD at 17:33 EDT Reading Location ID and State: [facility] [place] [facility] [place] Tel , Service support , Physical Exam Const alert and oriented x3 Cardio Rhythm: abnormal rhythm irregularly irregular (paced) GI non-tender and non-distended Auscultation: normoactive bowel sounds Palpation: soft Extremity no clubbing, cyanosis or edema Psych cooperative Assessment & Plan Assessment/Plan (1) Acute renal failure (ARF): PLAN: Creatinine improved from 4.15 to 3.95 today.Suspect ATN from ischemic ATN, hypotension. Renal US no hydro. Continue to hold on diuretics. Volume status stable (2) CKD (chronic kidney disease) stage 4, GFR 15-29 ml/min: PLAN: baseline creatinine 2.0 to 2.8 (3) Hyperkalemia: PLAN: resolved (4) Ischemic cardiomyopathy: (5) Essential (primary) hypertension: (6) Type 2 diabetes mellitus: QUALIFIERS: Diabetes mellitus rodent exterminator insulin use: without halfway use Diabetes mellitus complication status: with other specified complication Qualified Code(s): E11.69 - Type 2 diabetes mellitus with other specified complication
[2024-02-12 09:00] VITALS: BP 105/81; PULSE 86; RESP 18; TEMP 36.3; O2SAT 99
[2024-02-12] MEDS: Isosorbide Mononitrate 30 MG Tablet PO (09:36)
[2024-02-12] MEDS: Carvedilol 12.5 MG Tablet PO ×2 (09:36→18:00)
[2024-02-12] MEDS: Aspirin E.C. 81 MG Tablet PO (09:36)
[2024-02-12] MEDS: Ranolazine 500 MG Tablet PO ×2 (09:36→21:27)
[2024-02-12] MEDS: Pantoprazole Sodium 40 MG Tablet PO (09:36)
[2024-02-12] MEDS: Cholecalciferol (VIT D3) 25 MCG TABLET (1,000 UNITS) PO (09:36)
[2024-02-12] MEDS: VERICIGUAT PO (09:36)
[2024-02-12 11:30] LABS: Hematocrit 30.4 % (40-54); Hemoglobin 9.7 g/dL (13.0-16.5); Mean Corp Hgb Conc 31.9 g/dL (32-36); Mean Corpuscular Volume 97.1 fL (80-94); Mean Platelet Vol. 13.4 fl (6.2-12.0); POSITIVE COUNT YES; POSITIVE DIFFERENTIAL YES; POSITIVE MORPHOLOGY YES; Platelet Count 61 K/mm3 (150-450); RBC Distribution Width CV 18.1 % (11.6-14.6); RBC Distribution Width SD 62.4 fl (35.1-43.9); Red Blood Count 3.13 M/mm3 (4.6-6.2); White Blood Count 9.6 K/mm3 (4.4-11.0)
[2024-02-12 11:58] LABS: Differential Indicated MANUAL DIFF
[2024-02-12 12:02] LABS: Lymphocyte 7 % (19-41); Monocyte 2 % (0-10); Myelocyte 3 % (0-0); Neutrophil-Band 2 % (0-5); Total Cells Counted 100 (MANUAL DIFF)
[2024-02-12 12:03] LABS: Platelet Estimate SLT DEC (ADEQ); Red Cell Morphology N CHROM NORMAL (NORM C&C)
[2024-02-12 12:08] LABS: Neutrophil-Segmented 71 % (47-70)
[2024-02-12 15:00] VITALS: BP 102/79; PULSE 83; RESP 18; TEMP 36.4; O2SAT 100
[2024-02-12 21:24] VITALS: BP 111/71; PULSE 79; RESP 18; TEMP 36; O2SAT 99
[2024-02-12] MEDS: Rosuvastatin Calcium 5 MG Tablet 10 MG PO (21:27)
[2024-02-13 03:27] VITALS: BP 94/61; PULSE 82; RESP 18; TEMP 36.1; O2SAT 99
[2024-02-13 07:22] LABS: Absolute Lymphocyte Count 0.45 X10^3/uL (0.83-4.51); Absolute Neutrophil Count 6.7 X10^3/uL (2.0-7.7); Basophil# 0.05 X10^3/uL; Basophil% 0.6 % (0-1); Eosinophil# 0.34 X10^3/uL; Eosinophils% 3.8 % (0-5); Hematocrit 26.3 % (40-54); Hemoglobin 8.6 g/dL (13.0-16.5); Lymphocyte # 0.45 X10^3/ul (0.83-4.51); Lymphocyte % 5.1 % (19-41); Mean Corp Hgb Conc 32.7 g/dL (32-36); Mean Corpuscular Hgb 31.2 pg (27.0-32.0); Mean Corpuscular Volume 95.3 fL (80-94); Mean Platelet Vol. 13.4 fl (6.2-12.0); Monocyte# 1.04 X10^3/uL; Monocyte% 11.7 % (0-10); NRBC Flagged by Analyzer 0.6 % (0-5); Neutrophil # 6.66 X10^3/uL (2.7-7.7); Neutrophil % 74.6 % (47-70); POSITIVE COUNT YES; POSITIVE DIFFERENTIAL YES; Platelet Count 64 K/mm3 (150-450); RBC Distribution Width CV 17.9 % (11.6-14.6); RBC Distribution Width SD 59.7 fl (35.1-43.9); Red Blood Count 2.76 M/mm3 (4.6-6.2); White Blood Count 8.9 K/mm3 (4.4-11.0)
--- NOTE | 2024-02-13 07:49 | PCM.PN.HOSP ---
Reason for Visit Reason for Visit: Diagnoses Type 2 diabetes mellitus with other specified complication (02/11/24) Hyperkalemia (02/11/24) Essential (primary) hypertension (02/11/24) Ischemic cardiomyopathy (02/11/24) Gout, unspecified (02/11/24) Acute kidney failure, unspecified (02/11/24) Chronic kidney disease, stage 4 (severe) (02/11/24) Subjective Subjective Patient seen complains of feeling tired and sleepy. Slight improvement seen creatinine. Nephrology is recommending resumption of patient diuretic therapy. Objective Data Objective Data Vital Signs: Vital Signs Temp Pulse Resp BP Pulse Ox O2 Del Method 97.0 F L 82 18 94/61 99 Room Air 02/13/24 03:27 02/13/24 03:27 02/13/24 03:27 02/13/24 03:27 02/13/24 03:27 02/13/24 03:27 Oxygen Delivery Method Room Air Weight: 79.9 kg Body Mass Index (BMI) 23.8 Intake & Output: Intake and Output for Last 24 Hours 02/11/24 02/12/24 02/13/24 23:59 23:59 23:59 Intake Total 1820 / 0 840 / 840 Output Total 50 / 50 Balance 1769 840 / 840 Lab / Micro Data 02/13/24 06:45 02/13/24 06:45 Labs: Laboratory Results - last 24 hr 02/12/24 06:18: WBC 9.6, RBC 3.13 L, Hgb 9.7 L, Hct 30.4 L, MCV 97.1 H, MCH 31.0, MCHC 31.9 L, RDW Std Deviation 62.4 H, RDW Coeff of Jane 18.1 H, Plt Count 61 L, MPV 13.4 H, Neut % (Auto) Not Reportable, Absolute Neuts (auto) 7.0, Absolute Lymphs (auto) 0.70 L, Total Counted 100, Neutrophils % (Manual) 71 H, Band Neutrophils % 2, Lymphocytes % (Manual) 7 L, Monocytes % (Manual) 2, Myelocytes % 3 H, Diff Path Review October, Platelet Estimate SLT DEC, RBC Morphology N CHROM 02/13/24 06:45: WBC 8.9, RBC 2.76 L, Hgb 8.6 L, Hct 26.3 L, MCV 95.3 H, MCH 31.2, MCHC 32.7, RDW Std Deviation 59.7 H, RDW Coeff of Jane 17.9 H, Plt Count 64 L, MPV 13.4 H, Immature Gran % (Auto) 4.200 H, Neut % (Auto) 74.6 H, Lymph % (Auto) 5.1 L, [place] % (Auto) 11.7 H, Eos % (Auto) 3.8, Baso % (Auto) 0.6, Absolute Neuts (auto) 6.7, Absolute Lymphs (auto) 0.45 L, Nucleated RBC % 0.6 Radiography Diagnostic Testing: Radiology Impression Echocardiogram 02/11/24 19:03 Interpretation Summary Severely dilated left ventricle. Severe global left ventricular systolic dysfunction. The left ventricular ejection fraction is 15 %. Moderately severe (3+) eccentric mitral valve insufficiency. Pulmonary artery systolic pressure is 53 mmHg. Compared to previous study, the left ventricular systolic function has worsened.. Ordering Physician: Saul Butler Referring Physician: Eleuterio Abreu Chi Performed By: Marilyn Weaver, RYAN, RVT Physical Exam Narrative GENERAL: cooperative HEENT: Atraumatic; normocephalic EYES; Anicteric, Normal Conjunctiva NECK; supple, normal thyroid, RESPIRATORY: Diminished to auscultation CARDIOVASCULAR: Regular S1 S2, GI: soft, normoactive bowel sounds, : No Renal angle tenderness; EXTREMITIES: No edema, no clubbing, MUSCULOSKELETAL: no muscle wasting NEURO: Awake; no lateralizing signs. SKIN: No Rash PSYCH; Flat affect Assessment & Plan Assessment/Plan (1) Gout: (2) Acute renal failure (ARF): (3) Hyperkalemia: PLAN: Plan Patient is a 73-year-old gentleman admitted with progressive generalized weakness as well as dyspnea. Patient was diagnosed with acute on chronic renal failure with hyperkalemia on admission admitted to monitored bed for further management 1. Acute on chronic renal failure ? Secondary to suspected ischemic ATN from hypotension. Renal ultrasound obtained did not show any hydronephrosis seen in consultation by nephrology recommendation is for patient's diuretics to be held with subsequent monitoring of daily electrolytes ordered ? 02/13/2024;Slight improvement seen creatinine. Nephrology is recommending resumption of patient diuretic therapy. 2. Hyperkalemia Secondary to above treated per protocol repeat potassium levels ordered for a.m. 3. Gout ? Patient is on febuxostat as well as colchicine 5. Dyslipidemia ?Patient is on statin therapy, continued at home dose 6. GERD with Zheng's esophagus ? Patient is on PPI 7. Hypertension ? Blood pressure controlled, home medications continued with dose adjustment as needed 8. Ischemic cardiomyopathy ? Status post AICD placement 9. Diabetes mellitus type 2 ? Previously on insulin 10. Coronary artery disease ? With previous PCI 11. Chronic congestive heart failure with reduced ejection fraction ? Patient is on furosemide metolazone as well as vericiguat. 2D echo obtained on 08/17/2023 demonstrated Severely dilated left ventricle. Severe global left ventricular systolic dysfunction. The left ventricular ejection fraction is 15 %. Moderately severe (3+) eccentric mitral valve insufficiency. Pulmonary artery systolic pressure is 53 mmHg. Compared to previous study, the left ventricular systolic function has worsened. Plan is for patient to resume care with cardiology following discharge ? 02/13/2024; plan is to resume diuretic therapy 12. Anemia ? Secondary to chronic disorder monitoring H&H and transfuse if patient becomes symptomatic or hemoglobin falls below 7 13. DVT prophylaxis ? On enoxaparin, Dose adjusted for kidney function 14. Physical deconditioning ? Requested for PT OT eval and dialysis social worker to assist with discharge planning Time spent in the patient's overall evaluation,decision-making process, review of diagnostic data, adjustment of management, discussion with other providers, nursing nursing and ancillary staff involved in patient's care documentation, 50 minutes Charges/Coding Visit Charges Inpatient E&M: 44420 Subs Hosp L3
--- NOTE | 2024-02-13 07:54 | PN.RENAL_ITS ---
Subjective Subjective breathing better, creatinine improved. Appetite good. Still with nausea Objective Data Objective Data Vital Signs: Vital Signs Temp Pulse Resp BP Pulse Ox O2 Del Method 97.0 F L 82 18 94/61 99 Room Air 02/13/24 03:27 02/13/24 03:27 02/13/24 03:27 02/13/24 03:27 02/13/24 03:27 02/13/24 03:27 Oxygen Delivery Method Room Air Weight: 79.9 kg Body Mass Index (BMI) 23.8 Intake & Output: Intake and Output for Last 24 Hours 02/11/24 02/12/24 02/13/24 23:59 23:59 23:59 Intake Total 1819 / 2059 840 / 840 Output Total 50 / 50 Balance 1769 840 / 840 Lab / Micro Data 02/13/24 06:45 02/12/24 06:18 Labs: Laboratory Results - last 24 hr 02/12/24 06:18: WBC 9.6, RBC 3.13 L, Hgb 9.7 L, Hct 30.4 L, MCV 97.1 H, MCH 31.0, MCHC 31.9 L, RDW Std Deviation 62.4 H, RDW Coeff of Jane 18.1 H, Plt Count 61 L, MPV 13.4 H, Neut % (Auto) Not Reportable, Absolute Neuts (auto) 7.0, A bsolute Lymphs (auto) 0.70 L, Total Counted 100, Neutrophils % (Manual) 71 H, Band Neutrophils % 2, Lymphocytes % (Manual) 7 L, Monocytes % (Manual) 2, M yelocytes % 3 H, Diff Path Review October, Platelet Estimate SLT DEC, RBC Morphology N CHROM 02/13/24 06:45: WBC 8.9, RBC 2.76 L, Hgb 8.6 L, Hct 26.3 L, MCV 95.3 H, MCH 31.2, MCHC 32.7, RDW Std Deviation 59.7 H, RDW Coeff of Jane 17.9 H, Plt Count 64 L, MPV 13.4 H, Immature Gran % (Auto) 4.200 H, Neut % (Auto) 74.6 H, Lymph % (Auto) 5.1 L, [place] % (Auto) 11.7 H, Eos % (Auto) 3.8, Baso % (Auto) 0.6, Absolute Neuts (auto) 6.7, Absolute Lymphs (auto) 0.45 L, Nucleated RBC % 0.6 Radiography Diagnostic Testing: Radiology Impression Echocardiogram 02/11/24 19:03 Interpretation Summary Severely dilated left ventricle. Severe global left ventricular systolic dysfunction. The left ventricular ejection fraction is 15 %. Moderately severe (3+) eccentric mitral valve insufficiency. Pulmonary artery systolic pressure is 53 mmHg. Compared to previous study, the left ventricular systolic function has worsened.. Ordering Physician: Saul Butler Referring Physician: Eleuterio Abreu Chi Performed By: Marilyn Weaver, CHANCECS, RVT Physical Exam Const alert, oriented x3 and no apparent distress Resp clear to auscultation bilaterally Resp Narrative: diminished Auscultation: diminished lung sounds Cardio Rhythm: abnormal rhythm GI Auscultation: normoactive bowel sounds Palpation: soft Extremity General Extremity: edema right Assessment & Plan Assessment/Plan (1) Acute renal failure (ARF): PLAN: Creatinine improved from 3.95 to 3.08 today.Resume diuretics. (2) CKD (chronic kidney disease) stage 4, GFR 15-29 ml/min: PLAN: baseline creatinine 2.0 to 2.8 due to cardiorenal syndrome, diabetes. LVEF 15% on echo (3) Hyperkalemia: PLAN: resolved, resume supplements daily with lasix. (4) Ischemic cardiomyopathy: PLAN: LVEF 15% s/p AICD, ppm (5) Essential (primary) hypertension: (6) Type 2 diabetes mellitus: QUALIFIERS: Diabetes mellitus terminal gauger insulin use: without intermediate use Diabetes mellitus complication status: with other specified complication Qualified Code(s): E11.69 - Type 2 diabetes mellitus with other specified complication
[2024-02-13 08:06] LABS: Anion Gap 8 (5-15); BUN 65 mg/dL (7-18); BUN/Creat Ratio 21.1 RATIO (10-20); Calcium,Total 7.7 mg/dL (8.5-10.1); Chloride 104 mmol/L (98-107); Creatinine, Serum 3.08 mg/dL (0.70-1.30); EST Glomerular Filtration Rate 21 mL/min (>60); Est Glom Filt Rate - Afr Amer 26 mL/min (>60); Glucose 152 mg/dL (74-106); Magnesium 1.7 mg/dL (1.6-2.6); Phosphorus 2.7 mg/dL (2.5-4.9); Potassium 3.8 mmol/L (3.5-5.1); Sodium Level 136 mmol/L (136-145)
[2024-02-13 08:30] LABS: Pathologist Review Reviewed
[2024-02-13 09:30] VITALS: BP 96/60; PULSE 78; RESP 18; TEMP 36.4; O2SAT 100
[2024-02-13] MEDS: Ranolazine 500 MG Tablet PO ×2 (09:59→21:38)
[2024-02-13] MEDS: Furosemide 40 MG Tablet PO ×2 (09:59→17:38)
[2024-02-13] MEDS: Carvedilol 12.5 MG Tablet PO ×2 (09:59→17:38)
[2024-02-13] MEDS: Isosorbide Mononitrate 30 MG Tablet PO (09:59)
[2024-02-13] MEDS: Pantoprazole Sodium 40 MG Tablet PO (09:59)
[2024-02-13] MEDS: Cholecalciferol (VIT D3) 25 MCG TABLET (1,000 UNITS) PO (09:59)
[2024-02-13] MEDS: Aspirin E.C. 81 MG Tablet PO (09:59)
[2024-02-13] MEDS: VERICIGUAT PO (10:00)
--- NOTE | 2024-02-13 13:14 | CHAPLAIN ---
Type of Pastoral Visit _x__ Initial Visit ___ Follow-up Visit ___ On-call Visit ___ General Patient Visit ___ Spiritual Assessment ___ Family Conference ___ Bereavement ___ Rapid Response ___ Code Blue ___ Other (describe below) Pastoral Care Referral From _x__ Patient ___ Family ___ Nurse ___ Physician ___ Crisis Nurse ___ Regional Engagement Consultant ___ Other (describe below) Sacrament/Intervention _x__ Active listening ___ Anointing ___ Pentecostal ___ Bereavement ___ Communion ___ Saritha exploration ___ _x__ Life review _x__ Prayer ___ Reconciliation ___ Sacrament of Sick ___ Supportive presence ___ Wedding ___ Other (describe below) Pastoral Comments patient and son are in the room; patient is very talkative and shows humor throughout the visit; pt states he is fine and that one day I just want to wake up to see Maulik and my ; pt admits that his children are pressing him to take better care of his health; pt welcomes presence and prayer
[2024-02-13 15:30] VITALS: BP 102/66; PULSE 82; RESP 18; TEMP 36.3; O2SAT 100
[2024-02-13 21:31] VITALS: BP 107/76; PULSE 78; RESP 18; TEMP 36.5; O2SAT 100
[2024-02-13] MEDS: 0.9% Saline Lock 10 ML Syringe IV (21:38)
[2024-02-13] MEDS: Rosuvastatin Calcium 5 MG Tablet 10 MG PO (21:38)
--- NOTE | 2024-02-13 23:26 | EKG12_ITS ---
Test Reason : RYTHM CHANGE Blood Pressure : / mmHG Vent. Rate : 082 BPM Atrial Rate : 082 BPM P-R Int : 146 ms QRS Dur : 168 ms QT Int : 468 ms P-R-T Axes : 016 -56 092 degrees QTc Int : 546 ms Atrial-sensed ventricular-paced rhythm Biventricular pacemaker detected Abnormal ECG When compared with ECG of 10-FEB-2024 21:08, Vent. rate has decreased BY 2 BPM Confirmed by ZOILA RATLIFF, JERARDO ([id number]), slot editor SANDRA MADDOX ([id number]) on 02/17/2024 8:27:15 AM Referred By: CELIA Confirmed By:JERARDO CUMMINGS MD
[2024-02-13] MEDS: Magnesium Sulfate 1 GM in Dextrose 5%-Water (100mL Bag) 100 ML IV (23:55)
[2024-02-14 03:37] VITALS: BP 91/65; PULSE 76; RESP 18; TEMP 36.6; O2SAT 98
[2024-02-14 07:39] LABS: Absolute Neutrophil Count 6.4 X10^3/uL (2.0-7.7); Basophil# 0.06 X10^3/uL; Basophil% 0.7 % (0-1); Eosinophil# 0.39 X10^3/uL; Eosinophils% 4.3 % (0-5); Hematocrit 28.8 % (40-54); Hemoglobin 9.1 g/dL (13.0-16.5); Lymphocyte % 5.6 % (19-41); Mean Corp Hgb Conc 31.6 g/dL (32-36); Mean Corpuscular Hgb 30.4 pg (27.0-32.0); Mean Corpuscular Volume 96.3 fL (80-94); Monocyte# 1.29 X10^3/uL; Monocyte% 14.3 % (0-10); NRBC Flagged by Analyzer 0.3 % (0-5); Neutrophil # 6.44 X10^3/uL (2.7-7.7); Neutrophil % 71.7 % (47-70); POSITIVE COUNT YES; POSITIVE DIFFERENTIAL YES; Platelet Count 52 K/mm3 (150-450); RBC Distribution Width CV 18.1 % (11.6-14.6); RBC Distribution Width SD 61.2 fl (35.1-43.9); Red Blood Count 2.99 M/mm3 (4.6-6.2)
[2024-02-14 09:30] VITALS: BP 115/82; PULSE 87; RESP 18; TEMP 36.3; O2SAT 100
--- NOTE | 2024-02-14 09:38 | DS.PCM_ITS ---
Providers Date of Admission: 02/11/24 Date of Discharge: 02/14/24 Primary Care Physician: Dr. Eleuterio Abreu MD Consultations 02/11/24 07:44 Consult: Nephrology Routine Consulting Provider: Kaye Lai Reason for Consult: DANISH EMERGENT Consult: No MD Notified: Yes Date Notified: 02/11/24 Time Notified: 07:44 Method of Notification: Text Reason For Visit: ACUTE ON CHRONIC RENAL FAILURE HYPERKALEMIA Diagnosis Discharge Diagnosis (1) Gout: Status: Acute Code(s): M10.9 - Gout, unspecified (2) Acute renal failure (ARF): Status: Acute Code(s): N17.9 - Acute kidney failure, unspecified (3) Hyperkalemia: Status: Acute Code(s): E87.5 - Hyperkalemia Plan Patient is a 73-year-old gentleman admitted with progressive generalized weakness as well as dyspnea. Patient was diagnosed with acute on chronic renal failure with hyperkalemia on admission admitted to monitored bed for further management 1. Acute on chronic renal failure ? Secondary to suspected ischemic ATN from hypotension. Renal ultrasound obtained did not show any hydronephrosis seen in consultation by nephrology recommendation is for patient's diuretics to be held with subsequent monitoring of daily electrolytes ordered ? 02/13/2024;Slight improvement seen creatinine. Nephrology is recommending resumption of patient diuretic therapy. ? 02/14/2024 diuretic therapy resumed on the 2. Hyperkalemia Secondary to above treated per protocol repeat potassium levels ordered for a.m. ? 3. Gout ? Patient is on febuxostat as well as colchicine 5. Dyslipidemia ?Patient is on statin therapy, continued at home dose 6. GERD with Zheng's esophagus ? Patient is on PPI 7. Hypertension ? Blood pressure controlled, home medications continued with dose adjustment as needed 8. Ischemic cardiomyopathy ? Status post AICD placement 9. Diabetes mellitus type 2 ? Previously on insulin 10. Coronary artery disease ? With previous PCI 11. Chronic congestive heart failure with reduced ejection fraction ? Patient is on furosemide metolazone as well as vericiguat. 2D echo obtained on 08/17/2023 demonstrated Severely dilated left ventricle. Severe global left ventricular systolic dysfunction. The left ventricular ejection fraction is 15 %. Moderately severe (3+) eccentric mitral valve insufficiency. Pulmonary artery systolic pressure is 53 mmHg. Compared to previous study, the left ventricular systolic function has worsened. Plan is for patient to resume care with cardiology following discharge ? 02/13/2024; plan is to resume diuretic therapy ? 02/14/2024 Lasix was resumed on discharge metolazone discontinued 12. Anemia ? Secondary to chronic disorder monitoring H&H and transfuse if patient becomes symptomatic or hemoglobin falls below 7 13. DVT prophylaxis ? On enoxaparin, Dose adjusted for kidney function 14. Physical deconditioning ? Requested for PT OT eval and social media job titles to assist with discharge planning Time spent in the patient's overall evaluation,decision-making process, review of diagnostic data, adjustment of management, discussion with other providers, nursing nursing and ancillary staff involved in patient's care documentation, 35 minutes Medications at Discharge Home Medications rosuvastatin 10 mg tablet 10 mg PO QHS cholesterol 09/22/19 aspirin 81 mg tablet,delayed release 81 mg PO DAILY@0800 HEALTH MAINTENANCE 08/25/20 albuterol sulfate 90 mcg/actuation aerosol inhaler 1 - 2 puff inhalation Q4H PRN PRN Shortness Of Breath ##1 08/26/20 furosemide 40 mg tablet 40 mg PO BID FLUID 03/09/21 pantoprazole 40 mg tablet,delayed release 40 mg PO DAILY #90 tabs 02/15/22 carvedilol 12.5 mg tablet 12.5 mg PO BID #180 tabs 03/18/23 isosorbide mononitrate 30 mg tablet,extended release 24 hr 30 mg PO DAILY #90 tabs 03/18/23 nitroglycerin 0.4 mg sublingual tablet (Nitrostat) 0.4 mg sublingual Q5M PRN Pain #25 tabs 03/21/23 vericiguat 10 mg tablet (Verquvo) 10 mg PO DAILY 03/21/23 cholecalciferol (vitamin D3) 25 mcg (1,000 unit) tablet 25 mcg PO DAILY 08/02/23 ranolazine 500 mg tablet,extended release,12 hr 500 mg PO BID #180 tabs 09/09/23 colchicine 0.6 mg tablet 0.6 mg PO QDAY 01/22/24 febuxostat 40 mg tablet 40 mg PO QDAY 01/22/24 potassium chloride 20 mEq tablet,extended release(part/cryst) 20 meq PO DAILYCM #0 tabs 02/14/24 Physical Exam Narrative GENERAL: cooperative HEENT: Atraumatic; normocephalic EYES; Anicteric, Normal Conjunctiva NECK; supple, normal thyroid, RESPIRATORY: Diminished to auscultation CARDIOVASCULAR: Regular S1 S2, GI: soft, normoactive bowel sounds, : No Renal angle tenderness; EXTREMITIES: No edema, no clubbing, MUSCULOSKELETAL: no muscle wasting NEURO: Awake; no lateralizing signs. SKIN: No Rash PSYCH; Flat affect Weight / BMI Weight Weight: 79.9 kg Body Mass Index (BMI) 23.8 ABG / Lab / Microbiology Data 02/14/24 06:41 02/13/24 06:45 Laboratory: Laboratory Results - last 24 hr 02/14/24 06:41: WBC 9.0, RBC 2.99 L, Hgb 9.1 L, Hct 28.8 L, MCV 96.3 H, MCH 30.4, MCHC 31.6 L, RDW Std Deviation 61.2 H, RDW Coeff of Jane 18.1 H, Plt Count 52 L, MPV 12.0, Immature Gran % (Auto) 3.400 H, Neut % (Auto) 71.7 H, Lymph % (Auto) 5.6 L, [place] % (Auto) 14.3 H, Eos % (Auto) 4.3, Baso % (Auto) 0.7, Absolute Neuts (auto) 6.4, Absolute Lymphs (auto) 0.50 L, Nucleated RBC % 0.3 D/C Instructions Discharge Diet: 8 Cup Fluid Restriction, 2000 mg Sodium Diet and Renal Diet Discharge Activity: Return to Normal Activity Call your doctor if you observe: Fever of 101 or Higher, Shortness of breath, Fainting spells and Chest pain Meaningful Use Info Meaningful Use Meaningful Use Diagnoses (Choose all that apply): None applicable Ischemic Stroke Statin Dosing Therapy Reference: STATIN DOSE THERAPY REFERENCE: * Patients > 75 years receive moderate or high dose statin therapy. * Patients 75 years or YOUNGER should receive HIGH intensity statin dose unless contraindicated. You will be required to document reason for non-treatment if statin daily dose does not meet guidelines. HIGH DOSE STATIN THERAPY DAILY Atorvastatin > than or = to 40 mg Rosuvastatin > than or = to 20 mg Amlodipine + Atorvastatin > than or = to 2.5/40 mg Ezetimibe + Simvastatin 10/80 mg Simvastatin 80mg Discharge Plan Admission Admit Date/Time: 02/11/24 00:49 Attending Provider: Bayron Shoemaker Primary Care Provider: Eleuterio Abreu Chi Consulting Providers: Pratik Smith; Kaye Lai; Saul Butler Discharge Orders/Prescriptions Prescriptions: New potassium chloride 20 mEq Tablet,Er Particles/Crystals 20 meq PO DAILYCM Qty: 0 0RF Continued Verquvo 10 mg tablet 10 mg PO DAILY Rx Instructions: must administer with a meal/food nitroglycerin [Nitrostat] 0.4 mg tablet, sublingual 0.4 mg SL Q5M PRN (Reason: Pain) Qty: 25 3RF cholecalciferol (vitamin D3) 25 mcg (1,000 unit) tablet 25 mcg PO DAILY aspirin 81 MG tablet 81 mg PO DAILY@0800 albuterol sulfate 1 INHALER inhaler 1 - 2 puff INHALATION Q4H PRN PRN (Reason: Shortness Of Breath) Qty: 1 0RF rosuvastatin 10 mg tablet 10 mg PO QHS furosemide 40 mg tablet 40 mg PO BID pantoprazole 40 mg tablet,delayed release (DR/EC) 40 mg PO DAILY Qty: 90 3RF isosorbide mononitrate 30 mg tablet extended release 24 hr 30 mg PO DAILY Qty: 90 3RF carvedilol 12.5 mg tablet 12.5 mg PO BID Qty: 180 3RF ranolazine 500 mg tablet extended release 12 hr 500 mg PO BID Qty: 180 3RF Discontinued potassium chloride 20 mEq tablet extended release 20 meq PO TID metolazone 2.5 mg tablet 2.5 mg PO .MONDAYS doxycycline monohydrate 100 mg capsule 100 mg PO BID Referrals / Follow Up: Kaye Lai DO [Med Staff - Consulting] - In 1 Week Eleuterio Abreu Chi, MD [Primary Care Provider] - Within 2 Weeks Disposition Disposition (needs filled in before D/C Order can be placed): Home, Self Care Charges/Coding Visit Charges Inpatient E&M: 54099 Disch Hosp >30min
[2024-02-14] MEDS: Potassium Chloride Oral Tablet 20 MEQ PO (10:21)
[2024-02-14] MEDS: Isosorbide Mononitrate 30 MG Tablet PO (10:21)
[2024-02-14] MEDS: VERICIGUAT PO (10:22)
[2024-02-14] MEDS: Ranolazine 500 MG Tablet PO (10:22)
[2024-02-14] MEDS: Furosemide 40 MG Tablet PO (10:22)
[2024-02-14] MEDS: Pantoprazole Sodium 40 MG Tablet PO (10:22)
[2024-02-14] MEDS: Cholecalciferol (VIT D3) 25 MCG TABLET (1,000 UNITS) PO (10:22)
[2024-02-14] MEDS: Aspirin E.C. 81 MG Tablet PO (10:22)
[2024-02-14] MEDS: Carvedilol 12.5 MG Tablet PO (10:22)
[2024-02-14 10:25] VITALS: O2SAT 100; O2SAT 97
[2024-02-14 10:39] LABS: Anion Gap 10 (5-15); BUN 60 mg/dL (7-18); BUN/Creat Ratio 22.7 RATIO (10-20); Calcium,Total 8.4 mg/dL (8.5-10.1); Chloride 104 mmol/L (98-107); Creatinine, Serum 2.64 mg/dL (0.70-1.30); EST Glomerular Filtration Rate 25 mL/min (>60); Est Glom Filt Rate - Afr Amer 31 mL/min (>60); Estimated Creatinine Clearance 27.76 ml/min; Glucose 142 mg/dL (74-106); Potassium 3.6 mmol/L (3.5-5.1); Sodium Level 137 mmol/L (136-145)
[2024-02-14 10:47] VITALS: BP 115/82; PULSE 87; RESP 18; TEMP 36.3; O2SAT 100
--- NOTE | 2024-02-14 11:55 | CASEMGMT ---
Patient has order for discharge. RN CM in to discuss needs at discharge, family at bedside. Patient denies needs or help at discharge. Patient aware to attend follow up appt, state he has appt with PCP on Saturday. Patient had no further questions or concerns.
== END 2024-02-14 13:13 | disposition home or self-care (01) | DRG 683 ==
LOC: ED 02-11 00:19 → PCU 02-11 01:11
PROVIDERS: Internal Medicine Nephrology; Admitting Provider Family Medicine; Emergency Provider Emergency Medicine; PCP Family Medicine Geriatric Medicine; Visit Provider Internal Medicine
DX: N17.0 Acute kidney failure with tubular necrosis (principal); I13.0 Hypertensive heart and chronic kidney disease with heart failure and stage 1 through stage 4 chronic kidney disease, or unspecified chronic kidney disease; I50.22 Chronic systolic (congestive) heart failure; D63.1 Anemia in chronic kidney disease; E11.22 Type 2 diabetes mellitus with diabetic chronic kidney disease; E11.40 Type 2 diabetes mellitus with diabetic neuropathy, unspecified; N18.4 Chronic kidney disease, stage 4 (severe); I34.0 Nonrheumatic mitral (valve) insufficiency; E11.51 Type 2 diabetes mellitus with diabetic peripheral angiopathy without gangrene; M10.9 Gout, unspecified; I25.5 Ischemic cardiomyopathy; E87.5 Hyperkalemia; F17.200 Nicotine dependence, unspecified, uncomplicated; I25.10 Atherosclerotic heart disease of native coronary artery without angina pectoris; K22.70 Barrett's esophagus without dysplasia; E78.5 Hyperlipidemia, unspecified; I25.2 Old myocardial infarction; Z95.5 Presence of coronary angioplasty implant and graft; Z95.810 Presence of automatic (implantable) cardiac defibrillator
CPT/HCPCS: 36415; 76770; 80048; 83735; 84100; 84484; 85025; 93005; 93306; 94640; 94760; 97802; 99283; J7030; J7040; Q9957; A4216; C8929; J0612; J2405

== ENCOUNTER → 2024-02-17 | Outpatient (CLI) | payer MEDICARE, OTHER, SELFPAY ==
[2020-02-18 06:00] VITALS: BMI 28.0
[2024-02-17 17:24] LABS: Anion Gap 8 (5-15); BUN 59 mg/dL (7-18); Calcium,Total 8.6 mg/dL (8.5-10.1); Chloride 105 mmol/L (98-107); Creatinine, Serum 2.56 mg/dL (0.70-1.30); EST Glomerular Filtration Rate 26 mL/min (>60); Est Glom Filt Rate - Afr Amer 32 mL/min (>60); Glucose 236 mg/dL (74-106); Potassium 3.9 mmol/L (3.5-5.1); Sodium Level 138 mmol/L (136-145)
== END | disposition home or self-care (01) ==
LOC: POLAB3 16:31
PROVIDERS: PCP Family Medicine Geriatric Medicine; Visit Provider Family Medicine Geriatric Medicine
DX: E11.65 Type 2 diabetes mellitus with hyperglycemia (principal)
CPT/HCPCS: 36415; 80048

== ENCOUNTER → 2024-02-26 | Outpatient (CLI) | payer MEDICARE, OTHER, SELFPAY ==
[2020-02-18 06:00] VITALS: BMI 28.0
[2024-02-26 12:58] LABS: BUN 73 mg/dL (7-18); BUN/Creat Ratio 22.4 RATIO (10-20); Calcium,Total 8.5 mg/dL (8.5-10.1); Chloride 104 mmol/L (98-107); Creatinine, Serum 3.26 mg/dL (0.70-1.30); EST Glomerular Filtration Rate 20 mL/min (>60); Est Glom Filt Rate - Afr Amer 24 mL/min (>60); Glucose 180 mg/dL (74-106); Phosphorus 3.8 mg/dL (2.5-4.9); Sodium Level 136 mmol/L (136-145)
== END | disposition home or self-care (01) ==
PROVIDERS: PCP Family Medicine Geriatric Medicine; Referring Provider Internal Medicine Nephrology; Visit Provider Internal Medicine Nephrology
DX: N18.4 Chronic kidney disease, stage 4 (severe) (principal)
CPT/HCPCS: 36415; 80069

== ENCOUNTER → 2024-03-03 | Outpatient (CLI) | payer MEDICARE, OTHER, SELFPAY ==
[2020-02-18 06:00] VITALS: BMI 28.0
--- NOTE | 2024-03-03 15:20 | RAD_ITS ---
STUDY: X-RAY - ABDOMEN/PELVIS REASON FOR EXAM: Male, 73 years old. Loss of appetite TECHNIQUE: AP supine and upright views of the abdomen and pelvis. 3 total views obtained COMPARISON: None. FINDINGS: Normal visualized lung bases. There is a paralytic ileus of the small intestine with mild gaseous distention. There is no demonstrated free abdominal air. The visualized liver, spleen and kidneys are grossly normal in size and morphology. Normal soft tissue structures. Normal visualized osseous structures. RAD/Abd Inc Decub and/or Erect IMPRESSION: Ileus Electronically Signed: Mateo Johnson MD at 8:58 EDT ,
[2024-03-03 15:48] LABS: Absolute Lymphocyte Count 0.36 X10^3/uL (0.83-4.51); Absolute Neutrophil Count 8.3 X10^3/uL (2.0-7.7); Basophil# 0.03 X10^3/uL; Basophil% 0.3 % (0-1); Eosinophil# 0.01 X10^3/uL; Eosinophils% 0.1 % (0-5); Hematocrit 34.8 % (40-54); Hemoglobin 10.9 g/dL (13.0-16.5); Lymphocyte # 0.36 X10^3/ul (0.83-4.51); Lymphocyte % 3.7 % (19-41); Mean Corp Hgb Conc 31.3 g/dL (32-36); Mean Corpuscular Hgb 30.4 pg (27.0-32.0); Mean Corpuscular Volume 97.2 fL (80-94); Mean Platelet Vol. 11.9 fl (6.2-12.0); Monocyte# 0.85 X10^3/uL; Monocyte% 8.8 % (0-10); NRBC Flagged by Analyzer 0.4 % (0-5); Neutrophil # 8.33 X10^3/uL (2.7-7.7); Neutrophil % 85.8 % (47-70); POSITIVE DIFFERENTIAL YES; Platelet Count 121 K/mm3 (150-450); RBC Distribution Width CV 17.9 % (11.6-14.6); RBC Distribution Width SD 63.9 fl (35.1-43.9); Red Blood Count 3.58 M/mm3 (4.6-6.2); White Blood Count 9.7 K/mm3 (4.4-11.0)
[2024-03-03 15:55] LABS: ALB/GLOB Ratio 1.3 RATIO (0.9-2.4); AST(SGOT) 88 U/L (15-37); Alanine Aminotransfer ALT/SGPT 94 U/L (16-61); Albumin, Serum 3.3 g/dL (3.2-5.0); Alkaline Phosphatase 108 U/L (45-117); Anion Gap 12 (5-15); BUN 74 mg/dL (7-18); BUN/Creat Ratio 16.6 RATIO (10-20); Calcium,Total 8.9 mg/dL (8.5-10.1); Chloride 99 mmol/L (98-107); Creatinine, Serum 4.45 mg/dL (0.70-1.30); EST Glomerular Filtration Rate 14 mL/min (>60); Est Glom Filt Rate - Afr Amer 17 mL/min (>60); Globulin 2.5 g/dL (2.2-4.2); Glucose 156 mg/dL (74-106); Potassium 3.9 mmol/L (3.5-5.1); Protein, Total 5.8 g/dL (6.4-8.2); Sodium Level 134 mmol/L (136-145)
[2024-03-03 15:58] LABS: Differential Indicated SCAN CRITERIA MET
[2024-03-03 16:44] LABS: BNP,B-Type NATRIURETIC PEPTIDE > 5000.0 pg/mL (0-100)
== END | disposition home or self-care (01) ==
LOC: POLAB3 14:49 → RAD 15:15
PROVIDERS: PCP Family Medicine Geriatric Medicine; Referring Provider Family Medicine Geriatric Medicine; Visit Provider Family Medicine Geriatric Medicine
DX: R68.83 Chills (without fever) (principal); R53.83 Other fatigue; R06.02 Shortness of breath; N39.0 Urinary tract infection, site not specified; B95.62 Methicillin resistant Staphylococcus aureus infection as the cause of diseases classified elsewhere; L03.115 Cellulitis of right lower limb; R63.0 Anorexia
CPT/HCPCS: 36415; 74019; 80053; 83880; 85025; 87070; 87075; 87077; 87086; 87186; 87205; 87631; 87640